=== PATIENT | female | born 1995 | race Caucasian/White ===

== ENCOUNTER 2016-09-12 19:09 | Emergency (ER) | payer OTHER ==
[2016-09-12 19:17] VITALS: BP 134/74; RESP 18; TEMP 98.3
[2016-09-12] MEDS ORDERED: methylPREDNISolone SOD SUCCI 125 MG/2 ML VIAL IM STA (19:24)
[2016-09-12] MEDS ORDERED: FAMOTIDINE 20 MG TAB PO STA (19:50)
[2016-09-12 20:04] LABS: Amorphous Sediment,Urine Rare /hpf; Appearance,Urine Clear (Clear); Bilirubin,Urine Negative (Negative); Glucose,Urine (UA) Negative (Negative); Ketones,Urine Negative (Negative); Leukocyte Esterase,Urine Negative (Negative); Mucus,Urine Rare /hpf; Nitrite,Urine Negative (Negative); Particle Count 1896; Protein,Urine Negative (Negative); RBC,Urine 4 /hpf (0-5); Specific Gravity,Urine 1.018 (1.001-1.035); Squamous Epithelial Cell,Urine 2 /hpf (0-4); UA Billing (MACRO vs. MICRO) MICRO; Urobilinogen,Urine <2.0 mg/dL (<2.0); WBC,Urine 3 /hpf (0-5)
--- NOTE | 2016-09-12 20:12 | ED ---
Allergic Reaction HPI - General Chief complaint: Allergic Reaction Stated complaint: Med Reaction Time Seen by Provider: 09/12/16 19:23 Source: patient, RN notes reviewed Mode of arrival: ambulatory Limitations: no limitations - History of Present Illness Initial Comments: Patient is a 21-year-old female with chief complaint of itching after she took Bactrim that was prescribed to her for urinary tract infection. She is reported that she's had urinary tract infection symptoms for approximately 3 days. She saw a urgent care clinic who prescribed her Bactrim. She states that she is ALLERGIC to sulfas and penicillins. She states that she took the Bactrim she started to feel itchy. She denies any rash. Patient denies any throat closing or shortness breath. - Related Data Home Medications Medication Instructions Recorded Confirmed ARIPiprazole IM [Abilify Maintena] 400 mg IM QMONTH 10/13/15 05/10/16 Albuterol Inhaler [Ventolin Hfa 1 - 2 puff INHALATION RT-Q6H PRN 03/21/16 Inhaler] Azithromycin [Azithromycin] 05/10/16 Previous Rx's Medication Instructions Recorded Loratadine [Claritin] 10 mg PO DAILY PRN #20 tab 03/13/16 Albuterol Inhaler [Ventolin Hfa 2 puff INHALATION RT-TID PRN #0 05/01/16 Inhaler] puff Budesonide [Pulmicort] 1 mg INHALATION RT-BID nebu 05/01/16 Famotidine [Pepcid] 20 mg PO BID #28 tablet 05/01/16 Nicotine Polacrilex [Nicorette] 2 mg BUCCAL Q4HR PRN #60 gum 05/01/16 QUEtiapine [SEROquel] 75 mg PO HS #60 tab 05/01/16 Ziprasidone [Geodon] 40 mg PO AC-BID #60 cap 05/01/16 hydrOXYzine PAMOATE [Vistaril] 50 mg PO HS #60 cap 05/01/16 lamoTRIgine [LaMICtal] 25 mg PO DAILY #60 tab 05/01/16 Ciprofloxacin HCl [Cipro] 250 mg PO Q12HR #6 tablet 09/12/16 Famotidine [Pepcid] 20 mg PO BID #8 tablet 09/12/16 predniSONE 20 mg PO DAILY #3 tab 09/12/16 Allergies Allergy/AdvReac Type Severity Reaction Status Date / Time Penicillins Allergy Severe Anaphylaxis Verified 09/12/16 19:17 Sulfa (Sulfonamide Allergy Severe Anaphylaxis Verified 09/12/16 19:17 Antibiotics) diphenhydramine HCl Allergy Rash/Hives Verified 09/12/16 19:17 [From Benadryl] Review of Systems ROS Statement: Those systems with pertinent positive or pertinent negative responses have been documented in the HPI. ROS Other: All systems not noted in ROS Statement are negative. 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 Past Psychological History: Anxiety, Bipolar, Depression, Panic Disorder, PTSD, Schizophrenia Smoking Status: Current every day smoker Past Alcohol Use History: None Reported Additional Past Alcohol Use History / Comment(s): Vision is a smoker one pack per day. She states she is using marijuana. She does not have a medical marijuana card. She states she has been using a lot of crack cocaine every day. She is currently living at home with her mom. She does not have any children. She denies any alcohol use.. Past Drug Use History: Cocaine, Marijuana, Methamphetamine Additional Drug Use History / Comment(s): Pt. stated cocaine use1 day ago UDS negative - Past Family History Mother Family Medical History: No Reported History Father Family Medical History: No Reported History Brother(s) Family Medical History: No Reported History Sister(s) Family Medical History: No Reported History General Exam - General Exam Comments Initial Comments: Patient is a pleasant 21-year-old female. No acute distress. Limitations: no limitations General appearance: alert, in no apparent distress Head exam: Present: atraumatic, normocephalic, normal inspection Eye exam: Present: normal appearance, PERRL, EOMI. Absent: scleral icterus, conjunctival injection, periorbital swelling ENT exam: Present: normal exam, mucous membranes moist Neck exam: Present: normal inspection Respiratory exam: Present: normal lung sounds bilaterally. Absent: respiratory distress, wheezes, rales, rhonchi, stridor Cardiovascular Exam: Present: regular rate, normal rhythm, normal heart sounds. Absent: systolic murmur, diastolic murmur, rubs, gallop, clicks GI/Abdominal exam: Present: soft, normal bowel sounds. Absent: distended, tenderness, guarding, rebound, rigid Extremities exam: Present: normal inspection, full ROM, normal capillary refill. Absent: tenderness, pedal edema, joint swelling, calf tenderness Back exam: Present: normal inspection Neurological exam: Present: alert, oriented X3, CN II-XII intact Psychiatric exam: Present: normal affect, normal mood Skin exam: Present: warm, dry, intact, normal color. Absent: rash Course Vital Signs 09/12/16 09/12/16 09/12/16 19:15 19:56 20:23 Temperature 98.3 F Pulse Rate 102 H 80 Respiratory 18 18 18 Rate Blood Pressure 134/74 O2 Sat by Pulse 99 99 Oximetry Medical Decision Making - Medical Decision Making Patient is a 21-year-old female with chief complaint of ALLERGIC reaction after a sulfa medication for urinary tract infection. is ALLERGIC to Benadryl. Patient given shot of solumedrol. She has no rash, wheezing, or angioedema. She only reports itching. Patient will be prescribed Cipro for her and she previous urinary tract infection.Urinalysis shows blood, no luekocyte ersterase. Urine will be cultured. I did advise her to take the following prescriptions as directed, Pepcid and steroids. Patient understands treatment plan will comply. - Lab Data Lab Results 09/12/16 Range/Units 19:53 Urine Color Yellow Urine Appearance Clear (Clear) Urine pH 6.0 (5.0-8.0) Ur Specific [place] 1.018 (1.001-1.035) Urine Protein Negative (Negative) Urine Glucose (UA) Negative (Negative) Urine Ketones Negative (Negative) Urine Blood Moderate H (Negative) Urine Nitrate Negative (Negative) Urine Bilirubin Negative (Negative) Urine Urobilinogen <2.0 (<2.0) mg/dL Ur Leukocyte Esterase Negative (Negative) Urine RBC 4 (0-5) /hpf Urine WBC 3 (0-5) /hpf Ur Squamous Epith Cells 2 (0-4) /hpf Amorphous Sediment Rare H (None) /hpf Urine Mucus Rare H (None) /hpf Disposition Clinical Impression: UTI (urinary tract infection), Allergic reaction caused by a drug Disposition: HOME SELF-CARE Condition: Good Instructions: Antibiotic Medication Allergy (ED) Additional Instructions: Patient denies to rest, increase fluids and to complete prescription as directed. Return the emergency department if any alarming signs or symptoms occur. Follow-up with PCP few days as well as concerning signs occur. Prescriptions: Ciprofloxacin HCl [Cipro] 250 mg PO Q12HR #6 tablet Famotidine [Pepcid] 20 mg PO BID #8 tablet predniSONE 20 mg PO DAILY #3 tab Referrals: Brandon Liu MD [REFERRING] - 1-2 days Time of Disposition: 20:12
[2016-09-12 20:23] VITALS: PULSE 80
== END 2016-09-12 20:23 | disposition home or self-care (01) ==
LOC: EC 19:09
DX: N39.0 Urinary tract infection, site not specified (principal); L29.9 Pruritus, unspecified; T37.0X5A Adverse effect of sulfonamides, initial encounter; F17.200 Nicotine dependence, unspecified, uncomplicated; F12.90 Cannabis use, unspecified, uncomplicated; F14.90 Cocaine use, unspecified, uncomplicated; E66.9 Obesity, unspecified; Z88.0 Allergy status to penicillin; Z88.2 Allergy status to sulfonamides; Z88.8 Allergy status to other drugs, medicaments and biological substances; F31.9 Bipolar disorder, unspecified; F20.9 Schizophrenia, unspecified; Z79.51 Long term (current) use of inhaled steroids; J45.909 Unspecified asthma, uncomplicated; K21.9 Gastro-esophageal reflux disease without esophagitis; F41.9 Anxiety disorder, unspecified; Z87.442 Personal history of urinary calculi; Z87.820 Personal history of traumatic brain injury
CPT/HCPCS: 99283; 96372; 87086; 81001; J2930

== ENCOUNTER 2016-11-15 00:55 | Emergency (ER) | payer OTHER ==
[2016-11-15 01:11] VITALS: RESP 18
[2016-11-15] MEDS ORDERED: SODIUM CHLORIDE 0.9% 1,000 ML IV ONE (01:47)
[2016-11-15] MEDS ORDERED: METOCLOPRAMIDE 5 MG/ML 2 ML VIAL IVP STA (01:47)
[2016-11-15] MEDS ORDERED: DIAZEPAM 5 MG/ML 2 ML SYRINGE IVP STA (01:47)
[2016-11-15] MEDS ORDERED: KETOROLAC 30 MG/ML 1 ML VIAL IVP STA (01:47)
--- NOTE | 2016-11-15 01:50 | ED ---
Headache HPI - General Chief Complaint: Headache Stated Complaint: Migrane/Nausea Time Seen by Provider: 11/15/16 01:19 Source: RN notes reviewed Mode of arrival: ambulatory Limitations: no limitations - History of Present Illness Initial Comments: Patient is a 21-year-old female presents to emergency for evaluation of migraine headache. Patient has been having migraine headaches for the past month. Patient states she was recently placed on migraine medication by primary care provider. Patient states she took that medication over the past few days with no relief of symptoms. Patient states migraine headache began about 3 days ago. Patient states she has been very nauseous with vomiting. Patient states when she tries to eat she vomits. Patient states the headaches have been getting worse over the past day. Patient is having 10 out of 10 headache. Patient states headache is mostly behind bilateral eyes. Patient denies dizziness. Patient denies ringing in the ears. Patient does admit to photophobia but denies phonophobia. Patient denies chest pain or shortness of breath. Patient denies abdominal pain. Patient denies numbness or tingling in extremities. Patient denies throat pain or ear pain. Patient denies neck pain. Patient denies fevers or chills. - Related Data Home Medications Medication Instructions Recorded Confirmed ARIPiprazole IM [Abilify Maintena] 400 mg IM QMONTH 10/13/15 05/10/16 Albuterol Inhaler [Ventolin Hfa 1 - 2 puff INHALATION RT-Q6H PRN 03/21/16 Inhaler] Azithromycin [Azithromycin] 05/10/16 Previous Rx's Medication Instructions Recorded Loratadine [Claritin] 10 mg PO DAILY PRN #20 tab 03/13/16 Albuterol Inhaler [Ventolin Hfa 2 puff INHALATION RT-TID PRN #0 05/01/16 Inhaler] puff Budesonide [Pulmicort] 1 mg INHALATION RT-BID nebu 05/01/16 Famotidine [Pepcid] 20 mg PO BID #28 tablet 05/01/16 Nicotine Polacrilex [Nicorette] 2 mg BUCCAL Q4HR PRN #60 gum 05/01/16 QUEtiapine [SEROquel] 75 mg PO HS #60 tab 05/01/16 Ziprasidone [Geodon] 40 mg PO AC-BID #60 cap 05/01/16 hydrOXYzine PAMOATE [Vistaril] 50 mg PO HS #60 cap 05/01/16 lamoTRIgine [LaMICtal] 25 mg PO DAILY #60 tab 05/01/16 Ciprofloxacin HCl [Cipro] 250 mg PO Q12HR #6 tablet 09/12/16 Famotidine [Pepcid] 20 mg PO BID #8 tablet 09/12/16 predniSONE 20 mg PO DAILY #3 tab 09/12/16 Ondansetron Odt [Zofran Odt] 4 mg PO Q8HR PRN #12 tab 11/15/16 Allergies Allergy/AdvReac Type Severity Reaction Status Date / Time Penicillins Allergy Severe Anaphylaxis Verified 11/15/16 01:11 Sulfa (Sulfonamide Allergy Severe Anaphylaxis Verified 11/15/16 01:11 Antibiotics) diphenhydramine HCl Allergy Rash/Hives Verified 11/15/16 01:11 [From Benadryl] Review of Systems ROS Statement: Those systems with pertinent positive or pertinent negative responses have been documented in the HPI. ROS Other: All systems not noted in ROS Statement are negative. 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 Past Psychological History: Anxiety, Bipolar, Depression, Panic Disorder, PTSD, Schizophrenia Smoking Status: Current every day smoker Past Alcohol Use History: None Reported Additional Past Alcohol Use History / Comment(s): Vision is a smoker one pack per day. She states she is using marijuana. She does not have a medical marijuana card. She states she has been using a lot of crack cocaine every day. She is currently living at home with her mom. She does not have any children. She denies any alcohol use.. Past Drug Use History: Cocaine, Marijuana, Methamphetamine Additional Drug Use History / Comment(s): Pt. stated cocaine use1 day ago UDS negative - Past Family History Mother Family Medical History: No Reported History Father Family Medical History: No Reported History Brother(s) Family Medical History: No Reported History Sister(s) Family Medical History: No Reported History General Exam - General Exam Comments Initial Comments: Sitting in exam room, no acute distress. Limitations: no limitations General appearance: alert, in no apparent distress Head exam: Present: atraumatic, normocephalic, normal inspection Eye exam: Present: normal appearance ENT exam: Present: normal exam Neck exam: Present: normal inspection Respiratory exam: Present: normal lung sounds bilaterally. Absent: respiratory distress Cardiovascular Exam: Present: regular rate, normal rhythm, normal heart sounds Extremities exam: Present: normal inspection Back exam: Present: normal inspection Neurological exam: Present: alert, oriented X3, CN II-XII intact, normal gait Expanded Patient oriented to: Present: person, place, time Speech: Present: fluid speech Cranial nerves: EOM's Intact: Normal, Facial Sensation: Normal Sensory exam: Upper Extremity Light Touch: Normal, Lower Extremity Light Touch: Normal Motor strength exam: RUE: 5, LUE: 5, RLE: 5, LLE: 5 Psychiatric exam: Present: normal affect, normal mood Skin exam: Present: warm, dry, intact, normal color. Absent: rash Course Vital Signs 11/15/16 11/15/16 01:09 03:44 Temperature 97.9 F 97.5 F L Pulse Rate 95 71 Respiratory 18 18 Rate Blood Pressure 125/68 107/60 O2 Sat by Pulse 98 99 Oximetry Medical Decision Making - Medical Decision Making Patient is a 21-year-old female presents to the emergency room for evaluation of migraine headache. Patient states she is feeling better after medications and would like to be discharged home. Patient offered brain CT. Patient declined. Patient was sent home with Zofran as needed for nausea. Patient dates she understands everything that was discussed with her. Return parameters discussed. Case discussed Dr. Angeles. - Lab Data Result diagrams: 11/15/16 02:00 Lab Results 11/15/16 11/15/16 11/15/16 Range/Units 01:55 01:55 02:00 WBC 13.0 H (3.8-10.6) k/uL RBC 4.94 (3.80-5.40) m/uL Hgb 12.4 (11.4-16.0) gm/dL Hct 38.8 (34.0-46.0) % MCV 78.6 L (80.0-100.0) fL MCH 25.1 (25.0-35.0) pg MCHC 32.0 (31.0-37.0) g/dL RDW 15.4 (11.5-15.5) % Plt Count 237 (150-450) k/uL Neutrophils % 67 % Lymphocytes % 26 % Monocytes % 3 % Eosinophils % 1 % Basophils % 1 % Neutrophils # 8.7 H (1.3-7.7) k/uL Lymphocytes # 3.4 (1.0-4.8) k/uL Monocytes # 0.4 (0-1.0) k/uL Eosinophils # 0.1 (0-0.7) k/uL Basophils # 0.1 (0-0.2) k/uL Urine Color Yellow Urine Appearance Cloudy H (Clear) Urine pH 5.5 (5.0-8.0) Ur Specific [place] 1.007 (1.001-1.035) Urine Protein Negative (Negative) Urine Glucose (UA) Negative (Negative) Urine Ketones Negative (Negative) Urine Blood Trace H (Negative) Urine Nitrite Negative (Negative) Urine Bilirubin Negative (Negative) Urine Urobilinogen <2.0 (<2.0) mg/dL Ur Leukocyte Esterase Moderate H (Negative) Urine RBC 22 H (0-5) /hpf Ur Squamous Epith Cells 2 (0-4) /hpf Urine Yeast (Budding) Moderate H (None) /hpf Urine HCG, Qual Not Detected (Not Detectd) Disposition Clinical Impression: Migraine Disposition: HOME SELF-CARE Condition: Good Instructions: Acute Headache (ED) Additional Instructions: Drink plenty of water. Take Tylenol or Motrin as needed for headache. Take Zofran as needed for nausea. Please follow up with primary care provider in 1-2 days. If any new symptom arises or symptoms worsen, return to ER as soon as possible. Prescriptions: Ondansetron Odt [Zofran Odt] 4 mg PO Q8HR PRN #12 tab PRN Reason: Nausea Referrals: Lauren Denson MD [Primary Care Provider] - 1-2 days Time of Disposition: 03:35
[2016-11-15 02:23] LABS: Basophils # (A) 0.1 k/uL (0-0.2); Basophils % (A) 1 %; CH 25.7; CHCM 32.8; Eosinophils # (A) 0.1 k/uL (0-0.7); Eosinophils % (A) 1 %; HCT 38.8 % (34.0-46.0); HDW 2.67; HGB 12.4 gm/dL (11.4-16.0); Luc # (Auto) 0.22; Luc % (Auto) 2; Lymphocytes # (A) 3.4 k/uL (1.0-4.8); Lymphocytes % (A) 26 %; MCH 25.1 pg (25.0-35.0); MCV 78.6 fL (80.0-100.0); Mean Platelet Volume 8.1; Monocytes # (A) 0.4 k/uL (0-1.0); Monocytes % (A) 3 %; Neutrophils # (A) 8.7 k/uL (1.3-7.7); Neutrophils % (A) 67 %; RBC 4.94 m/uL (3.80-5.40); RDW 15.4 % (11.5-15.5)
[2016-11-15 02:23] LABS: Appearance,Urine Cloudy (Clear); Bilirubin,Urine Negative (Negative); Glucose,Urine (UA) Negative (Negative); Ketones,Urine Negative (Negative); Leukocyte Esterase,Urine Moderate (Negative); Nitrite,Urine Negative (Negative); PH, Urine 5.5 (5.0-8.0); Particle Count 3443; Protein,Urine Negative (Negative); RBC,Urine 22 /hpf (0-5); Specific Gravity,Urine 1.007 (1.001-1.035); Squamous Epithelial Cell,Urine 2 /hpf (0-4); UA Billing (MACRO vs. MICRO) MICRO; Urobilinogen,Urine <2.0 mg/dL (<2.0)
[2016-11-15] MEDS ORDERED: ONDANSETRON 4 MG/2 ML VIAL IVP STA (02:55)
[2016-11-15] MEDS ORDERED: methylPREDNISolone SOD SUCCI 125 MG/2 ML VIAL IV STA (02:56)
[2016-11-15 03:46] VITALS: BP 107/60; PULSE 71; TEMP 97.5
== END 2016-11-15 03:46 | disposition home or self-care (01) ==
LOC: EC 00:55
DX: G43.909 Migraine, unspecified, not intractable, without status migrainosus (principal); K21.9 Gastro-esophageal reflux disease without esophagitis; K58.9 Irritable bowel syndrome, unspecified; E66.9 Obesity, unspecified; F17.200 Nicotine dependence, unspecified, uncomplicated; Z79.899 Other long term (current) drug therapy; Z88.0 Allergy status to penicillin; Z88.2 Allergy status to sulfonamides; Z88.8 Allergy status to other drugs, medicaments and biological substances
CPT/HCPCS: 36415; 85025; 81001; 81025; 99284; 96374; 96375 ×4; 96361 ×2; J2765; J2930; J3360; J2405; J1885

== ENCOUNTER 2016-12-30 01:05 | Emergency (ER) | payer OTHER ==
--- NOTE | 2016-12-30 01:52 | ED ---
General Adult HPI - General Chief complaint: Psychiatric Symptoms Stated complaint: Dizziness Time Seen by Provider: 12/30/16 01:10 Source: patient, family, RN notes reviewed Mode of arrival: ambulatory Limitations: no limitations - History of Present Illness Initial comments: This is a 21-year-old female who presents emergency department with past medical history significant for schizophrenia. Patient states tonight she was getting depressive she took 3 plate stacker hand pills and some vodka in an attempt to harm herself. Patient states she has never attempted to harm herself in the past. Patient is not sure exactly why she attempted this evening. Patient denies any physical complaints today except for feeling a little racing heart. Patient denies any difficulty breathing shortness of breath. Patient denies any chest pain. Patient denies abdominal pain patient denies nausea vomiting or diarrhea. Patient denies any recent fever chills or cough. Patient denies any headache patient denies numbness weakness. Patient denies lightheadedness or dizziness. - Related Data Home Medications Medication Instructions Recorded Confirmed ARIPiprazole IM [Abilimaty Maintena] 400 mg IM QMONTH 10/13/15 12/30/16 Albuterol Inhaler [Ventolin Hfa 1 - 2 puff INHALATION RT-Q6H PRN 03/21/16 Inhaler] Previous Rx's Medication Instructions Recorded Loratadine [Claritin] 10 mg PO DAILY PRN #20 tab 03/13/16 Albuterol Inhaler [Ventolin Hfa 2 puff INHALATION RT-TID PRN #0 05/01/16 Inhaler] puff Budesonide [Pulmicort] 1 mg INHALATION RT-BID nebu 05/01/16 Famotidine [Pepcid] 20 mg PO BID #28 tablet 05/01/16 Nicotine Polacrilex [Nicorette] 2 mg BUCCAL Q4HR PRN #60 gum 05/01/16 QUEtiapine [SEROquel] 75 mg PO HS #60 tab 05/01/16 Ziprasidone [Geodon] 40 mg PO AC-BID #60 cap 05/01/16 hydrOXYzine PAMOATE [Vistaril] 50 mg PO HS #60 cap 05/01/16 lamoTRIgine [LaMICtal] 25 mg PO DAILY #60 tab 05/01/16 Ciprofloxacin HCl [Cipro] 250 mg PO Q12HR #6 tablet 02/21/17 Famotidine [Pepcid] 20 mg PO BID #8 tablet 09/12/16 predniSONE 20 mg PO DAILY #3 tab 09/12/16 Ondansetron Odt [Zofran Odt] 4 mg PO Q8HR PRN #12 tab 11/15/16 Allergies Allergy/AdvReac Type Severity Reaction Status Date / Time Penicillins Allergy Severe Anaphylaxis Verified 12/30/16 01:11 Sulfa (Sulfonamide Allergy Severe Anaphylaxis Verified 12/30/16 01:11 Antibiotics) diphenhydramine HCl Allergy Rash/Hives Verified 12/30/16 01:11 [From Benadryl] Review of Systems ROS Statement: Those systems with pertinent positive or pertinent negative responses have been documented in the HPI. ROS Other: All systems not noted in ROS Statement are negative. 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 Past Psychological History: Anxiety, Bipolar, Depression, Panic Disorder, PTSD, Schizophrenia Smoking Status: Current every day smoker Past Alcohol Use History: None Reported Additional Past Alcohol Use History / Comment(s): Vision is a smoker one pack per day. She states she is using marijuana. She does not have a medical marijuana card. She states she has been using a lot of crack cocaine every day. She is currently living at home with her mom. She does not have any children. She denies any alcohol use.. Past Drug Use History: Cocaine, Marijuana, Methamphetamine Additional Drug Use History / Comment(s): Pt. stated cocaine use1 day ago UDS negative - Past Family History Mother Family Medical History: No Reported History Father Family Medical History: No Reported History Brother(s) Family Medical History: No Reported History Sister(s) Family Medical History: No Reported History General Exam - General Exam Comments Initial Comments: GENERAL: Patient is well-developed and well-nourished. Patient is nontoxic and well- hydrated and is in no acute distress. ENT: Neck is soft and supple. No significant lymphadenopathy is noted. Oropharynx is clear. Moist mucous membranes. Neck has full range of motion without eliciting any pain. EYES: The sclera were anicteric and conjunctiva were pink and moist. Extraocular movements were intact and pupils were equal round and reactive to light. Eyelids were unremarkable. PULMONARY: Unlabored respirations. Good breath sounds bilaterally. No audible rales rhonchi or wheezing was noted. CARDIOVASCULAR: There is a regular rate and rhythm without any murmurs gallops or rubs. ABDOMEN: Soft and nontender with normal bowel sounds. No palpable organomegaly was noted. There is no palpable pulsatile mass. SKIN: Skin is clear with no lesions or rashes and otherwise unremarkable. NEUROLOGIC: Patient is alert and oriented x3. Cranial nerves II through XII are grossly intact. Motor and sensory are also intact. Normal speech, volume and content. Symmetrical smile. MUSCULOSKELETAL: Normal extremities with adequate strength and full range of motion. LYMPHATICS: No significant lymphadenopathy is noted PSYCHIATRIC: Normal psychiatric evaluation. Limitations: no limitations Course Vital Signs 12/30/16 01:08 Temperature 98.1 F Pulse Rate 103 H Respiratory 20 Rate Blood Pressure 112/55 O2 Sat by Pulse 97 Oximetry Medical Decision Making - Medical Decision Making EKG shows a normal sinus rhythm at 91 bpm TN interval is 150 QRS 74 QT interval 364 QTC is 447. Patient's EKG shows no ST segment elevation or depression or T wave abnormalities are noted EPS evaluated the patient and spoke with the psychiatrist they determined that the patient was safe to be discharged - Lab Data Lab Results 12/30/16 12/30/16 Range/Units 01:35 01:35 Urine HCG, Qual Not Detected (Not Detectd) Urine Opiates Screen Detected H (NotDetected) Ur Oxycodone Screen Not Detected (NotDetected) Urine Methadone Screen Not Detected (NotDetected) Ur Propoxyphene Screen Not Detected (NotDetected) Ur Barbiturates Screen Not Detected (NotDetected) U Tricyclic Antidepress Not Detected (NotDetected) Ur Phencyclidine Scrn Not Detected (NotDetected) Ur Amphetamines Screen Not Detected (NotDetected) U Methamphetamines Scrn Not Detected (NotDetected) U Benzodiazepines Scrn Detected H (NotDetected) Urine Cocaine Screen Not Detected (NotDetected) U Marijuana (THC) Screen Detected H (NotDetected) Disposition Clinical Impression: Depression Disposition: HOME SELF-CARE Condition: Good Instructions: Depression (ED) Referrals: Lauren Denson MD [Primary Care Provider] - 1-2 days Time of Disposition: 03:50
[2016-12-30 04:00] VITALS: BP 102/53; PULSE 86; RESP 18; TEMP 98
== END 2016-12-30 04:01 | disposition home or self-care (01) ==
LOC: EC 01:05
DX: F31.9 Bipolar disorder, unspecified (principal); F20.9 Schizophrenia, unspecified; F17.200 Nicotine dependence, unspecified, uncomplicated; Z88.0 Allergy status to penicillin; Z88.2 Allergy status to sulfonamides; Z88.8 Allergy status to other drugs, medicaments and biological substances; Z79.899 Other long term (current) drug therapy
CPT/HCPCS: 80306; 81025; 82075; 93005; 99285

== ENCOUNTER 2017-03-29 03:32 | Emergency (ER) | payer OTHER ==
[2017-03-29 03:38] VITALS: TEMP 97.5
[2017-03-29 04:18] LABS: Basophils % (A) 0 %; CH 28.2; CHCM 34.5; Eosinophils # (A) 0.1 k/uL (0-0.7); Eosinophils % (A) 1 %; HCT 36.3 % (34.0-46.0); HDW 2.68; HGB 12.1 gm/dL (11.4-16.0); Luc # (Auto) 0.13; Luc % (Auto) 2; Lymphocytes # (A) 1.8 k/uL (1.0-4.8); Lymphocytes % (A) 23 %; MCH 27.3 pg (25.0-35.0); MCHC 33.3 g/dL (31.0-37.0); MCV 82.2 fL (80.0-100.0); Monocytes # (A) 0.4 k/uL (0-1.0); Monocytes % (A) 5 %; Neutrophils # (A) 5.5 k/uL (1.3-7.7); Neutrophils % (A) 70 %; RBC 4.41 m/uL (3.80-5.40); WBC 7.9 k/uL (3.8-10.6); WBC (Perox) 7.76
[2017-03-29 04:29] LABS: Partial Thromboplastin Time 24.6 sec (22.0-30.0)
[2017-03-29 04:34] LABS: ALT 42 U/L (9-52); AST 20 U/L (14-36); Alkaline Phosphatase 89 U/L (38-126); Anion Gap 12 mmol/L; Blood Urea Nitrogen 8 mg/dL (7-17); Calcium 9.5 mg/dL (8.4-10.2); Carbon Dioxide 20 mmol/L (22-30); Chloride 109 mmol/L (98-107); Glucose 96 mg/dL (74-99); Magnesium 1.8 mg/dL (1.6-2.3); Non-African American GFR(MDRD) >60 (>60 ml/min/1.73 sqM); Potassium 4.1 mmol/L (3.5-5.1); Sodium 141 mmol/L (137-145); Total Bilirubin 0.2 mg/dL (0.2-1.3); Total Protein 6.8 g/dL (6.3-8.2)
[2017-03-29 04:36] LABS: INR 1.1 (<1.2); Prothrombin Time 11.2 sec (9.0-12.0)
[2017-03-29 04:52] LABS: Creatine Kinase 92 U/L (30-135)
[2017-03-29 05:05] LABS: Creatine Kinase MB 0.5 ng/mL (0.0-2.4); Troponin I <0.012 ng/mL (0.000-0.034)
--- NOTE | 2017-03-29 05:23 | ED ---
Chest Pain HPI - General Chief Complaint: Chest Pain Stated Complaint: chest pain Time Seen by Provider: 03/29/17 03:38 Source: patient, EMS Mode of arrival: EMS - History of Present Illness MD Complaint: chest pain Onset/Timin -: days(s) Onset: during rest Pain Location: substernal Quality: other (Burning) Consistency: constant Improves With: nothing Worsens With: other (Cough) Other Symptoms: cough Treatments Prior to Arrival: none - Related Data Home Medications Medication Instructions Recorded Confirmed fluPHENAZine DECANOATE [Prolixin 50 mg IM [id number] 04/03/17 04/15/17 Decanoate] Budesonide [Pulmicort Flexhaler] 2 puff INHALATION RT-BID 04/05/17 04/15/17 Medroxyprogesterone Acetate 150 mg IM Q90D 04/05/17 04/15/17 [Depo-Provera] Allergies Allergy/AdvReac Type Severity Reaction Status Date / Time Penicillins Allergy Severe Anaphylaxis Verified 04/15/17 18:36 Sulfa (Sulfonamide Allergy Severe Anaphylaxis Verified 04/15/17 18:36 Antibiotics) diphenhydramine HCl Allergy Rash/Hives Verified 04/15/17 18:36 [From Benadryl] Review of Systems ROS Statement: Those systems with pertinent positive or pertinent negative responses have been documented in the HPI. ROS Other: All systems not noted in ROS Statement are negative. Constitutional: Denies: fever, chills ENT: Denies: throat pain Respiratory: Reports: as per HPI, cough. Denies: dyspnea, wheezes Cardiovascular: Reports: as per HPI, chest pain. 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 Past Psychological History: Anxiety, Bipolar, Depression, Panic Disorder, PTSD, Schizophrenia Smoking Status: Current every day smoker Past Alcohol Use History: None Reported Past Drug Use History: None Reported - Past Family History Mother Family Medical History: No Reported History Father Family Medical History: No Reported History Brother(s) Family Medical History: No Reported History Sister(s) Family Medical History: No Reported History General Exam General appearance: alert, in no apparent distress Head exam: Present: atraumatic, normocephalic Eye exam: Present: normal appearance. Absent: scleral icterus, conjunctival injection Neck exam: Present: normal inspection, full ROM Respiratory exam: Present: normal lung sounds bilaterally, wheezes, chest wall tenderness. Absent: respiratory distress, rales, rhonchi, stridor Cardiovascular Exam: Present: regular rate, normal rhythm, normal heart sounds. Absent: systolic murmur, diastolic murmur, rubs, gallop GI/Abdominal exam: Present: soft. Absent: distended, tenderness, guarding, rebound, rigid Extremities exam: Present: normal inspection, normal capillary refill. Absent: pedal edema, calf tenderness Back exam: Present: normal inspection. Absent: CVA tenderness (R), CVA tenderness (L) Skin exam: Present: warm, dry, intact, normal color. Absent: rash Course Vital Signs 03/29/17 03/29/17 03:34 05:27 Temperature 97.5 F L Pulse Rate 79 76 Respiratory 16 14 Rate Blood Pressure 109/56 92/55 O2 Sat by Pulse 98 97 Oximetry Disposition Clinical Impression: Chest pain Disposition: HOME SELF-CARE Condition: Good Instructions: Chest Pain (ED) Referrals: Lauren Denson MD [Primary Care Provider] - 1-2 days
--- NOTE | 2017-03-29 05:25 | XR ---
EXAM: XR Chest, 2 Views CLINICAL HISTORY: Reason: Chest Pain TECHNIQUE: Frontal and lateral views of the chest. COMPARISON: 03/27/2014. FINDINGS: Lungs: Mild peribronchial cuffing is suggested, which can be seen in small airways inflammatory disease. No evidence of consolidation. Pleural space: Unremarkable. No pneumothorax. Heart: Unremarkable. No cardiomegaly. Mediastinum: Unremarkable. Bones/joints: Unremarkable. IMPRESSION: Mild peribronchial cuffing, which may represent small airways inflammatory disease. No evidence of consolidation.
[2017-03-29 05:31] VITALS: BP 92/55; PULSE 76; RESP 14
--- NOTE | 2017-04-02 00:57 | CDI ---
Documentation Clarification OP Dear Anthony Pereira Please do addendum to ED report for missing HPI and Physical examination. Thank you, Jon Hermosillo [employer] If you have any questions, please contact Commercial Underwriter at [phone] [facility]
== END 2017-03-29 05:49 | disposition home or self-care (01) ==
LOC: EC 03:32
DX: R07.2 Precordial pain (principal); J45.909 Unspecified asthma, uncomplicated; F20.9 Schizophrenia, unspecified; F17.200 Nicotine dependence, unspecified, uncomplicated; Z79.3 Long term (current) use of hormonal contraceptives; Z79.899 Other long term (current) drug therapy; Z88.0 Allergy status to penicillin; Z88.2 Allergy status to sulfonamides; Z88.8 Allergy status to other drugs, medicaments and biological substances
CPT/HCPCS: 36415; 71020; 80053; 82550; 82553; 83735; 84484; 85025; 85379; 85610; 85730; 93005; 99285

== ENCOUNTER 2017-04-03 10:28 | Observation (INO) | payer OTHER ==
[2017-04-03] MEDS ORDERED: IPRATROPIUM-ALBUTEROL 3 ML NEB INHALATION STA (10:43)
--- NOTE | 2017-04-03 10:47 | ED ---
General Adult HPI - General Chief complaint: Upper Respiratory Infection Stated complaint: Diff Breathing Time Seen by Provider: 04/03/17 10:30 Source: patient, RN notes reviewed Mode of arrival: EMS Limitations: no limitations - History of Present Illness Initial comments: This is a 22-year-old female who presents emergency department with past medical history significant for schizophrenia current use of crack cocaine asthma and smoking. Patient comes in today stating that she has had difficulty breathing over the last 2 days which started right after her last episode of smoking crack cocaine. Patient denies any fever chills per patient states she has an occasional cough. Patient states she has no more albuterol she's been out for a year but has never followed up to get more. Patient denies any fevers or chills. Patient denies any palpitations or chest pain. Patient denies abdominal pain patient denies nausea vomiting diarrhea. - Related Data Home Medications Medication Instructions Recorded Confirmed fluPHENAZine DECANOATE [Prolixin 50 mg IM [id number] 04/03/17 04/03/17 Decanoate] Allergies Allergy/AdvReac Type Severity Reaction Status Date / Time Penicillins Allergy Severe Anaphylaxis Verified 04/03/17 10:55 Sulfa (Sulfonamide Allergy Severe Anaphylaxis Verified 04/03/17 10:55 Antibiotics) diphenhydramine HCl Allergy Rash/Hives Verified 04/03/17 10:55 [From Benadryl] Review of Systems ROS Statement: Those systems with pertinent positive or pertinent negative responses have been documented in the HPI. ROS Other: All systems not noted in ROS Statement are negative. 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 Past Psychological History: Anxiety, Bipolar, Depression, Panic Disorder, PTSD, Schizophrenia Smoking Status: Current every day smoker Past Alcohol Use History: None Reported Past Drug Use History: Cocaine, Marijuana - Past Family History Mother Family Medical History: No Reported History Father Family Medical History: No Reported History Brother(s) Family Medical History: No Reported History Sister(s) Family Medical History: No Reported History General Exam - General Exam Comments Initial Comments: GENERAL: Patient is well-developed and well-nourished. Patient is nontoxic and well- hydrated and is in mild distress. ENT: Neck is soft and supple. No significant lymphadenopathy is noted. Oropharynx is clear. Moist mucous membranes. Neck has full range of motion without eliciting any pain. EYES: The sclera were anicteric and conjunctiva were pink and moist. Extraocular movements were intact and pupils were equal round and reactive to light. Eyelids were unremarkable. PULMONARY: Unlabored respirations. Good breath sounds bilaterally. CARDIOVASCULAR: There is a regular rate and rhythm without any murmurs gallops or rubs. ABDOMEN: Soft and nontender with normal bowel sounds. No palpable organomegaly was noted. There is no palpable pulsatile mass. SKIN: Skin is clear with no lesions or rashes and otherwise unremarkable. NEUROLOGIC: Patient is alert and oriented x3. Cranial nerves II through XII are grossly intact. Motor and sensory are also intact. Normal speech, volume and content. Symmetrical smile. MUSCULOSKELETAL: Normal extremities with adequate strength and full range of motion. No lower extremity swelling or edema. No calf tenderness. LYMPHATICS: No significant lymphadenopathy is noted PSYCHIATRIC: Patient has a very flat affect with all of her responses Limitations: no limitations Course Vital Signs 04/03/17 04/03/17 04/03/17 10:30 11:09 11:20 Temperature 98.5 F Pulse Rate 94 98 100 Respiratory 16 Rate Blood Pressure 131/67 O2 Sat by Pulse 94 L Oximetry Medical Decision Making - Medical Decision Making This is a 22-year-old female presents Department complaining shortness of breath. When I looked at the chest x-ray there was a right middle lobe pneumonia as well as a possible foreign body. When I spoke with the patient she states she did inhale a chunk of metal from a metal scrubber when she was trying to smoke crack from her pipe - Lab Data Lab Results 04/03/17 Range/Units 10:55 Group A Strep Rapid Negative (Negative) Disposition Clinical Impression: Pneumonia, Aspiration of foreign body Disposition: ADMITTED IP TO THIS HOSP Referrals: Lauren Denson MD [Primary Care Provider] - 1-2 days Time of Disposition: 13:09
[2017-04-03] MEDS ORDERED: LEVOFLOXACIN 750MG-D5W PMX 750 MG in DEXTROSE/WATER 1 150ML.BAG IVPB STA (13:06)
[2017-04-03 13:46] LABS: WBC 16.1 k/uL (3.8-10.6); WBC (Perox) 17.33
[2017-04-03 13:47] LABS: Basophils % (A) 0 %; CH 27.8; CHCM 34.5; Eosinophils % (A) 0 %; HCT 36.8 % (34.0-46.0); HDW 2.71; HGB 12.4 gm/dL (11.4-16.0); Luc % (Auto) 1; Lymphocytes % (A) 12 %; MCH 27.2 pg (25.0-35.0); MCHC 33.6 g/dL (31.0-37.0); MCV 80.9 fL (80.0-100.0); Mean Platelet Volume 8.8; Monocytes % (A) 3 %; Neutrophils % (A) 83 %; RBC 4.54 m/uL (3.80-5.40); RDW 15.9 % (11.5-15.5)
[2017-04-03 13:48] LABS: Eosinophils # (A) 0.1 k/uL (0-0.7); Luc # (Auto) 0.16; Monocytes # (A) 0.6 k/uL (0-1.0); Neutrophils # (A) 13.3 k/uL (1.3-7.7)
[2017-04-03 13:57] LABS: ALT 50 U/L (9-52); AST 67 U/L (14-36); Alkaline Phosphatase 96 U/L (38-126); Anion Gap 11 mmol/L; Blood Urea Nitrogen 7 mg/dL (7-17); Calcium 9.2 mg/dL (8.4-10.2); Carbon Dioxide 18 mmol/L (22-30); Chloride 111 mmol/L (98-107); Glucose 94 mg/dL (74-99); Non-African American GFR(MDRD) >60 (>60 ml/min/1.73 sqM); Sodium 140 mmol/L (137-145); Total Bilirubin 0.3 mg/dL (0.2-1.3); Total Protein 6.6 g/dL (6.3-8.2)
[2017-04-03] MEDS ORDERED: ONDANSETRON 4 MG/2 ML VIAL IVP PRN (14:20)
[2017-04-03] MEDS ORDERED: hydrALAZINE HCL 20 MG/ML 1 ML VIAL IM PRN (14:20)
--- NOTE | 2017-04-03 14:20 | XR ---
EXAMINATION TYPE: XR chest 2V DATE OF EXAM: 04/03/2017 COMPARISON: 03/29/2017 TECHNIQUE: PA and lateral views submitted. HISTORY: Cough and shortness of breath FINDINGS: There is right-sided consolidation extending in the right middle lobe. Left lung clear. No pneumothor ax. Heart size within normal limits. Metallic density overlying the right heart border may be related to previous surgery correlate clinically to exclude foreign body. IMPRESSION: 1. Right middle lobe pneumonia. 2. Correlate clinically for previous instrumentation or surgery for metallic density overlying the ri ght heart border
--- NOTE | 2017-04-03 14:22 | P.HPIM ---
History of Present Illness H&P Date: 04/03/17 Chief Complaint: shortness of breath Patient is a 22-year-old female with a past medical history of asthma , kidney stones, irritable bowel syndrome, and closed head injury who presented with complaints of shortness of breath. She states that 2 days ago she was cleaning her crack pipe. She had placed a copper piece in they are to clean. She had predominantly in there and then smoked again. She felt herself inhale something. Since that time she has had increasing shortness breath. This is associated with wheezing and a nonproductive cough. She states it is worse with exertion and better with rest. She also reports right-sided chest pain without radiation. It is worse with deep inspiration. She denies fevers and chills. She has no other complaints currently. She states that she uses crack cocaine approximately once every 2 days to once weekly. In the emergency department she underwent an extensive evaluation. Her chest x- ray revealed foreign body within the right middle lobe. She was on them and elevated white blood cell count of 16.1. She is given bronchodilators and a dose of Levaquin. Patient has been admission to observation. Review of Systems General: no fever/chills, no rigors, no weight loss/weight gain, no change in appetite Eyes: No double vision, no unusual blurry vision, no loss of vision ENT: No rhinorrhea, congestion, no trush Cardiovascular: No chest pain, no palpitations, no syncope, no edema, No paroxysmal nocturnal dyspnea, No dizziness Pulmonary: + Shortness of breath, + wheezing, + cough, hemoptysis Abdominal: No abdominal pain, no constipation, no diarrhea, no vomiting, no nausea, no distention Genitourinary: No dysuria, no urinary frequency, no hematuria, no unusual discharge/odor Neuro: No unusual paresthesias, no unusual paresis/paralysis, no headache Dermatologic: No unusual rashes, no unusual lesions, no unusual changes in nails Endocrinology: No intolerance to heat/cold, no excessive thirst,] no unusual fatigue Hematologic: No unusual bruising or bleeding, no unusual cervical lymphadenopathy Psychiatric: No changes in mood or behaviors, no changes in sleep pattern Past Medical History Past Medical History: Asthma, GERD/Reflux Additional Past Medical History / Comment(s): kidney stones, hypotension, irritable bowel syndrome -C, obesity, asthma, 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 Past Psychological History: Anxiety, Bipolar (Negative for heart disease), Depression, Panic Disorder, PTSD, Schizophrenia Smoking Status: Current every day smoker Past Alcohol Use History: None Reported Past Drug Use History: Cocaine, Marijuana - Past Family History Mother Family Medical History: No Reported History Father Family Medical History: No Reported History Brother(s) Family Medical History: No Reported History Sister(s) Family Medical History: No Reported History Medications and Allergies Home Medications Medication Instructions Recorded Confirmed Type fluPHENAZine DECANOATE [Prolixin 50 mg IM [id number] 04/03/17 04/03/17 History Decanoate] Allergies Allergy/AdvReac Type Severity Reaction Status Date / Time Penicillins Allergy Severe Anaphylaxis Verified 04/03/17 10:55 Sulfa (Sulfonamide Allergy Severe Anaphylaxis Verified 04/03/17 10:55 Antibiotics) diphenhydramine HCl Allergy Rash/Hives Verified 04/03/17 10:55 [From Benadryl] Physical Exam Osteopathic Statement: *. No significant issues noted on an osteopathic structural exam other than those noted in the History and Physical/Consult. Vitals: Vital Signs Temp Pulse Resp BP Pulse Ox 04/03/17 11:20 100 04/03/17 11:09 98 04/03/17 10:30 98.5 F 94 16 131/67 94 L Intake and Output 04/02/17 04/03/17 04/03/17 22:59 06:59 14:59 Other: Weight 90.718 kg Patient Weight 04/04/17 06:59 Weight 90.718 kg General: non toxic, mild distress, appears at stated age, normal weight Derm: no rashes, no lesions, no ulcers, no unusual ecchymoses Head: atraumatic, normocephalic, symmetric Eyes: EOMI, no lid lag, anicteric sclera, pupils equal round reactive to light ENT: no post nasal drip, no thrush , nearest patent, no pharyngeal erythema Neck: No thyromegaly, no cervical lymphadenopathy, trachea midline, supple Mouth: no lip lesion, mucus membranes moist Cardiovascular: S1S2 reg, no murmur, positive posterior tibial pulse bilateral, no edema , no JVD, no clubbing, no cyanosis, capillary refill less than 2 seconds Lungs: Decreased breath sounds right base, no wheeze, no rhonchi, no rales , no accessory muscle use Abdominal: soft, nontender to palpation, no guarding, no appreciable organomegaly, normal bowel sounds Ext: no gross muscle atrophy, muscle strength 5 out of 5 in all 4 extremities grossly, no contractures, Neuro: CN II-XI grossly intact, light touch intact all 4 extremities, finger to nose within normal limits, Psych: Alert, oriented, appears anxious Results CBC & Chem 7: 04/03/17 13:20 04/03/17 13:20 Labs: Abnormal Lab Results - Last 24 Hours (Table) 04/03/17 04/03/17 Range/Units 13:20 13:20 WBC 16.1 H (3.8-10.6) k/uL RDW 15.9 H (11.5-15.5) % Neutrophils # 13.3 H (1.3-7.7) k/uL Chloride 111 H (98-107) mmol/L Carbon Dioxide 18 L (22-30) mmol/L AST 67 H (14-36) U/L Chest x-ray: report reviewed, image reviewed Thrombosis Risk Factor Assmnt - DVT/VTE Prophylaxis DVT/VTE Prophylaxis: Pharmacologic Prophylaxis ordered Assessment and Plan Plan: #Foreign body aspiration -Made nothing by mouth -Case discussed with Dr. Newsome, probable bronchoscopy #Postobstructive pneumonia -Levaquin and clindamycin -Sputum culture if able -As needed bronchodilators #Cocaine abuse -Cessation #Tobacco abuse -Nicotine replacement -Cessation encouraged #Obesity -Outpatient structured weight loss Chronic: Asthma mild intermittent without exacerbation History of kidney stones Irritable bowel syndrome Hypotension Schizophrenia GERD History of closed head injury Surrogate decision-maker: Mother Jonelle Nolen [phone] CODE STATUS:Full DVT prophylaxis: Lovenox to start 04/05 Discussed with: Patient, ER physician, EGD nursing, for nursing, Dr. NewsomeSelena PRECISION INSTRUMENT MAKER Anticipated discharge: 24-48 hours, admitted as observation Anticipated discharge place: Home A total of 45 minutes was spent on the care of this complex patient more than 50 % of the time was spent in counseling and care coordination.
[2017-04-03] MEDS ORDERED: ALBUTEROL NEBULIZED 2.5 MG/3 ML INHALATION PRN (15:08)
[2017-04-03] MEDS: MORPHINE SULFATE 2 MG/ML SYRINGE IV PRN ×4 (15:35→21:49)
[2017-04-03] MEDS: DEXTROSE 5%-0.45% NACL 1,000 ML IV SCH (16:03)
[2017-04-03] MEDS: CLINDAMYCIN 600 MG in DEXTROSE 5% IN WATER 50 ML IVPB SCH ×4 (16:03→23:23)
[2017-04-03] MEDS ORDERED: KETOROLAC 30 MG/ML 1 ML VIAL IVP ONE (16:20)
[2017-04-03] MEDS ORDERED: MIDAZOLAM 2 MG/2 ML VIAL ONE (16:34)
[2017-04-03] MEDS ORDERED: PROPOFOL 10 MG/ML 20 ML VIAL IV ONE (16:34)
[2017-04-03] MEDS ORDERED: LIDOCAINE 1% INJ 10MG/ML (20 ML MDV) ONE (16:34)
[2017-04-03] MEDS ORDERED: IV FLUID CONTINUATION 900 ML IV ONE (16:40)
[2017-04-03] MEDS ORDERED: ZOLPIDEM 5 MG TAB PO PRN (21:16)
[2017-04-03] MEDS: LACTOBACILLUS ACIDOPH & BULGAR 1 EACH PACKET PO SCH (21:27)
[2017-04-03 21:39] LABS: RBC, Body Fluid 18900 /uL
--- NOTE | 2017-04-03 22:30 | CONS ---
CONSULTATION This patient is a 22-year-old female who presented to the emergency department with complaints of difficulty in breathing and coughing. She apparently aspirated a portion of her crack cocaine pipe a couple days ago. She has not had anything to eat or drink since about 8:00 last night. Anyway, the patient is here in the emergency department. We were notified by the attending staff that she had aspirated a portion of her crack pipe into her right lung. Sure enough it is seen in the right mainstem, right middle lobe of the right lung. Anyway, the patient is having cough and is short of breath. HOME MEDICATIONS: Her home medications include Prolixin. ALLERGIES: 1. PENICILLIN. 2. SULFA. 3. She also apparently has a history of BENADRYL ALLERGY. MEDICAL HISTORY: 1. Asthma. 2. Acid reflux disease. 3. History of irritable bowel syndrome. 4. Post head injury with brain injury. 5. Traumatic stress disorder. 6. Chronic tobacco dependence. 7. Polysubstance abuse. 8. Mood disorder. 9. UTI. PAST SURGICAL HISTORY: No major surgical procedures. SOCIAL HISTORY: Positive for chronic tobacco use, chronic alcohol abuse and polysubstance abuse. FAMILY HISTORY: Noncontributory. The rest of the history is not too remarkable. REVIEW OF SYSTEMS: CONSTITUTIONAL: Negative. NEUROLOGIC: Negative. HEENT: Negative. CARDIOVASCULAR: Negative. PULMONARY: Shortness of breath and cough. GI: Negative. : Negative. RHEUMATOLOGIC: Negative. IMMUNOLOGIC: Negative. ENDOCRINOLOGIC: Negative. DERMATOLOGIC: Negative. PHYSICAL EXAMINATION: Current vital signs are reviewed. Temperature 98.5, heart rate 94, respiratory rate 16, blood pressure 131/67. Saturation on room air 94%. Appears in no acute distress. HEENT examination is grossly unremarkable. Mucous membranes are moist. No oral lesions. NECK: Supple. Full range of motion. No adenopathy or thyromegaly. Cardiovascular examination reveals regular rhythm and rate. Lungs reveal mostly clear breath sounds. A few scattered mild rhonchi. No wheezes or crackles. ABDOMEN: Soft. Bowel sounds are heard. Extremities are intact. No cyanosis, clubbing or edema. X-RAY: Chest x-ray shows a foreign body either in the right mainstem or right middle lobe bronchus. LABS: Reviewed. White count 16.1. Hemoglobin and hematocrit stable. Platelet count normal. Sodium and potassium normal. Chloride is 111, CO2 18. BUN and creatinine were 7 and 0.6. The rest of the labs look negative. ASSESSMENT: 1. Foreign body aspiration, right mainstem, right middle lobe bronchus. 2. History of asthma. 3. History of gastroesophageal reflux disease. 4. History of chronic tobacco use. 5. History of polysubstance abuse. PLAN: The patient will go to the endoscopy suite. We will see if we can fish this metallic crack pipe mouthpiece out of her right lung. Additional recommendations and suggestions are forthcoming. She can either stay for 6 or 8 hours for observation or stay overnight or actually be discharged, depending on how she does. No additional recommendations are made. Will follow. MMODL / IJN: [id number] /
[2017-04-04] MEDS: MORPHINE SULFATE 2 MG/ML SYRINGE IV PRN ×3 (01:55→10:45)
[2017-04-04] MEDS: DEXTROSE 5%-0.45% NACL 1,000 ML IV SCH (05:51)
[2017-04-04 07:50] VITALS: BP 96/52; PULSE 86; RESP 16; TEMP 97.8
[2017-04-04 08:41] LABS: Basophils % (A) 0 %; CH 27.5; CHCM 33.5; Eosinophils # (A) 0.2 k/uL (0-0.7); Eosinophils % (A) 2 %; HCT 32.1 % (34.0-46.0); HDW 2.74; HGB 10.5 gm/dL (11.4-16.0); Luc # (Auto) 0.14; Luc % (Auto) 2; Lymphocytes # (A) 2.3 k/uL (1.0-4.8); Lymphocytes % (A) 32 %; MCH 26.9 pg (25.0-35.0); MCHC 32.7 g/dL (31.0-37.0); MCV 82.4 fL (80.0-100.0); Mean Platelet Volume 8.9; Monocytes # (A) 0.4 k/uL (0-1.0); Monocytes % (A) 5 %; Neutrophils # (A) 4.2 k/uL (1.3-7.7); Neutrophils % (A) 59 %; RDW 15.9 % (11.5-15.5); WBC 7.2 k/uL (3.8-10.6); WBC (Perox) 6.89
[2017-04-04] MEDS: CLINDAMYCIN 600 MG in DEXTROSE 5% IN WATER 50 ML IVPB SCH ×2 (08:42)
[2017-04-04] MEDS: LACTOBACILLUS ACIDOPH & BULGAR 1 EACH PACKET PO SCH (08:43)
[2017-04-04 08:59] LABS: Anion Gap 9 mmol/L; Blood Urea Nitrogen 4 mg/dL (7-17); Calcium 8.5 mg/dL (8.4-10.2); Carbon Dioxide 20 mmol/L (22-30); Chloride 111 mmol/L (98-107); Glucose 86 mg/dL (74-99); Non-African American GFR(MDRD) >60 (>60 ml/min/1.73 sqM); Potassium 4.1 mmol/L (3.5-5.1); Sodium 140 mmol/L (137-145)
[2017-04-04] MEDS ORDERED: PANTOPRAZOLE 40 MG/10 ML VIAL IV SCH (09:00)
--- NOTE | 2017-04-04 09:25 | P.DS ---
Providers Date of admission: 04/03/17 14:05 Expected date of discharge: 04/04/17 Attending physician: Cathy Jackson DO Consults: 04/03/17 14:50 Consult Physician Routine Consulting Provider: Alfredito Newsome Reason/Comments: FB aspiration Do you want consulting provider notified?: Yes Primary care physician: Lauren Denson - Discharge Diagnosis(es) (1) Aspiration of foreign body Status: Acute (2) Chest pain Status: Acute (3) Pneumonia Status: Acute (4) Polysubstance abuse Status: Acute (5) Schizophrenia Status: Acute Priority: High Hospital Course: Patient is a 22-year-old female with a past medical history of asthma , kidney stones, irritable bowel syndrome, closed head injury, and cocaine abuse who presented with complaints of shortness of breath. She had swallowed a piece of her crack pipe approximately 2 days earlier. She had increasing shortness of breath and therefore presented to the emergency department. In the ER her x-ray showed a foreign body in the right mainstem bronchus, right middle lobe. She had subsequent collapse of that low. Blood work showed a leukocytosis and she was subsequently found to have postobstructive pneumonia. She was given Levaquin and clindamycin as well as IV fluids and pain control. She was admitted as observation. Pulmonary was consult with Dr. Hinojosa on the patient went to the endoscopy suite. She had a bronchitis and foreign body was removed. There was copious amounts of purulent material. By the morning of her leukocytosis was resolved. Her shortness of breath had significantly improved. Her chest pain was gone. She was determined stable for discharge home. She'll complete a course of 10 days of antibiotics along with a probiotic. She was instructed to abstain from any illicit substances. SHe was discharged home in stable condition. Patient seen and examined at bedside. Vital signs reviewed and stable. General: [non toxic], [no distress], [appears at stated age] Derm: [no rashes], [no lesions] Head: [atraumatic], [normocephalic], [symmetric] Eyes: [EOMI], [no lid lag], [anicteric sclera] ENT: [no post nasal drip], [no thrush] Mouth: [no lip lesion], [mucus membranes moist] Cardiovascular: [S1S2 reg], [no murmur], [positive posterior tibial pulse bilateral], Lungs: Rhonchi right base , [no accessory muscle use] Abdominal: [soft], [ nontender to palpation], [no guarding], [no appreciable organomegaly] Ext: [no gross muscle atrophy], [no edema], [no contractures] Neuro: [ CN II-XI grossly intact], [no focal neuro deficits] Psych: [Alert], [oriented], affect A total of 45 minutes of time were spent preparing this complex discharge summary . Pertinent Studies: Chest x-ray with right middle lobe pneumonia and metallic damp to the over the right heart border Procedures: Bronchoscopy with removal of foreign body and bronchial washing 04/04/2017 Patient Condition at Discharge: Good Plan - Discharge Summary New Discharge Prescriptions: New Clindamycin HCl 600 mg PO Q8HR #60 cap Ibuprofen [Motrin] 600 mg PO Q8HR PRN #30 tab PRN Reason: Pain Lactobacillus Acidoph & Bulgar [Lactinex] 1 each PO BID #30 packet Levofloxacin [Levaquin] 750 mg PO DAILY #10 tab Continue fluPHENAZine DECANOATE [Prolixin Decanoate] 50 mg IM [id number] Discharge Medication List fluPHENAZine DECANOATE [Prolixin Decanoate] 50 mg IM [id number] 04/03/17 [History] Clindamycin HCl 600 mg PO Q8HR #60 cap 04/04/17 [Rx] Ibuprofen [Motrin] 600 mg PO Q8HR PRN #30 tab 04/04/17 [Rx] Lactobacillus Acidoph & Bulgar [Lactinex] 1 each PO BID #30 packet 04/04/17 [Rx] Levofloxacin [Levaquin] 750 mg PO DAILY #10 tab 04/04/17 [Rx] Follow up Appointment(s)/Referral(s): Lauren Denson MD [Primary Care Provider] - 04/13/17 11:00 am Patient Instructions/Handouts: Pneumonia (DC) Activity/Diet/Wound Care/Special Instructions: Regular diet, activity as tolerated, abstain from cocaine and other illicit drugs Discharge Disposition: HOME SELF-CARE Pending Studies Pending Results: Bronchial washing
--- NOTE | 2017-04-04 11:19 | PCN ---
PROCEDURE NOTE PROCEDURE PERFORMED: Bronchoscopy, airway examination, therapeutic lavage, removal foreign body from the right lung, right distal bronchus intermedius. PREOP DIAGNOSIS: Foreign body in right lung, right distal bronchus intermedius. POSTOP DIAGNOSIS: Foreign body in right lung, right distal bronchus intermedius. PROCEDURE PERFORMED BY: Dr. Newsome and Dr. Almeida. The patient's procedure was done in room #1 endoscopy. ANESTHESIOLOGIST: Dr. Moser. ANESTHESIA: General anesthesia unconscious sedation. DESCRIPTION OF PROCEDURE: After the patient was adequately sedated, being fully monitored. Bronchoscope was inserted through the right nostril. Passed through the right nasopharynx into the oropharynx. The hypopharynx was identified and topicalized. The hypopharyngeal structures all appeared normal. This includes anterior commissure, true cords, false cords, arytenoids, piriform sinuses, right and left vallecula and epiglottis. After topicalization, the bronchoscope was passed through the glottic opening into the trachea. Trachea appeared normal. We went directly right down into the right lung. The right upper lobe was normal. There was a foreign body lodged in the distal bronchus intermedius completely obstructing the right middle lobe and the right lower lobe. We used a small forceps to grab the object and pull it up into the nasopharynx. We then used a pediatric Kala forceps to remove it from the nostril. The patient tolerated the procedure well. There was no immediate complication. There was no significant bleeding. We did do a lavage of the right middle lobe given the fact there was a lot of secretions and purulence noted in the distal bronchus intermedius. That will be sent to the laboratory for analysis. The bronchoscope was withdrawn. The patient will be recovered and admitted to the hospital. MMODL / IJN: [id number] /
--- NOTE | 2017-04-04 12:51 | PN ---
PROGRESS NOTE A 22-year-old female who we saw yesterday in consultation in the emergency department. The patient apparently was using her crack pipe and apparently inhaled or aspirated into her right lung a metallic type device. We saw her in the emergency room. We did a consultation. Supplement with that we took her to the endoscopy suite where after some difficulty, we were able to retrieve this foreign body. It had lodged itself in the distal bronchus intermedius and was completely obstructing the right middle lobe and right lower lobe. The patient had significant purulence behind the obstruction. She was placed on antibiotics and she will likely be discharged today. Other than that, things are going well. She is feeling much better. Still coughing. Not producing any phlegm. No fever, no chills. Was apparently going to be discharged home on some Levaquin and clindamycin according to the primary staff. Current vital signs include a temperature which is in normal range. Heart rate 84, respiratory rate 16, blood pressure 131/67, saturation 96% on room air. No acute distress. HEENT examination is grossly unremarkable. Mucous membranes are moist. No oral lesions. NECK: Supple. Full range of motion. No adenopathy or thyromegaly. Neck veins are flat. Cardiovascular examination reveals regular rhythm and rate. S1, S2 normal. There is no S3, S4, or murmur. Lungs reveal diminished breath sounds. There are some coarse rhonchi, particularly on the right side. No wheezes or crackles. Abdomen is soft. Bowel sounds are heard. Extremities are intact. No cyanosis, clubbing, or edema. Skin without rash. Neurologic examination is brief but nonfocal. No additional labs to review. No microbiology. No subsequent x-rays to review. Discharge summary noted. ASSESSMENT: 1. Status post foreign body aspiration, completely obstructing the right middle lobe and right lower lobe bronchus. 2. History of asthma. 3. History of gastroesophageal reflux disease. 4. Chronic tobacco use. 5. History of polysubstance abuse. PLAN: The patient will be discharged per the primary service. Additional recommendations and suggestions are forthcoming. Antibiotics are recommended. We will continue to follow. Prognosis is guarded. MMODL / IJN: [id number] /
[2017-04-04] MEDS ORDERED: LEVOFLOXACIN 750MG-D5W PMX 750 MG in DEXTROSE/WATER 1 150ML.BAG IVPB SCH (13:00)
[2017-04-05] MEDS ORDERED: ENOXAPARIN 40 MG/0.4 ML SYRINGE SQ SCH (09:00)
== END 2017-04-04 11:08 | disposition home or self-care (01) ==
LOC: EC 10:28 → 4MS4W 14:05
PROVIDERS: ADMIT Internal Medicine; ATTEND Internal Medicine
DX: T17.890A Other foreign object in other parts of respiratory tract causing asphyxiation, initial encounter (principal); J18.9 Pneumonia, unspecified organism; F19.10 Other psychoactive substance abuse, uncomplicated; F20.9 Schizophrenia, unspecified; K21.9 Gastro-esophageal reflux disease without esophagitis; F17.200 Nicotine dependence, unspecified, uncomplicated; Z79.899 Other long term (current) drug therapy; Z88.0 Allergy status to penicillin; Z88.2 Allergy status to sulfonamides; Z88.8 Allergy status to other drugs, medicaments and biological substances; E66.9 Obesity, unspecified; Z68.36 Body mass index [BMI] 36.0-36.9, adult; F10.10 Alcohol abuse, uncomplicated; F14.10 Cocaine abuse, uncomplicated; J45.20 Mild intermittent asthma, uncomplicated; Z87.442 Personal history of urinary calculi; K58.9 Irritable bowel syndrome, unspecified; I95.9 Hypotension, unspecified; Z87.820 Personal history of traumatic brain injury; F41.9 Anxiety disorder, unspecified; F43.10 Post-traumatic stress disorder, unspecified; F31.9 Bipolar disorder, unspecified
CPT/HCPCS: 99285; 96365; 96366; 96367; 96375; 36415; 94640; 88108; 88305; 80053; 80048; 89050; 83605; 85025 ×2; 84703; 87040; 87070; 87205; 87081; 87430; 71020; 31624; 31635; G0378 ×2; J2250; J2001; J1885; J2270 ×2; J2704; C9113

== ENCOUNTER 2017-04-05 12:22 | Observation (INO) | payer OTHER ==
[2017-04-05] MEDS ORDERED: SODIUM CHLORIDE 0.9% 1,000 ML IV STA (13:25)
[2017-04-05] MEDS ORDERED: LEVOFLOXACIN 750MG-D5W PMX 750 MG in DEXTROSE/WATER 1 150ML.BAG IVPB STA (13:25)
[2017-04-05] MEDS ORDERED: HYDROmorphone 1 MG/ML 1 ML SYRINGE IVP STA ×2 (13:31→15:18)
[2017-04-05] MEDS ORDERED: METOCLOPRAMIDE 5 MG/ML 2 ML VIAL IVP STA (13:33)
[2017-04-05 13:50] LABS: Appearance,Urine Cloudy (Clear); Bacteria,Urine Rare /hpf; Bilirubin,Urine Negative (Negative); Glucose,Urine (UA) Negative (Negative); Ketones,Urine 2+ (Negative); Leukocyte Esterase,Urine Trace (Negative); Mucus,Urine Rare /hpf; Nitrite,Urine Negative (Negative); PH, Urine 6.5 (5.0-8.0); Particle Count 5103; Protein,Urine Trace (Negative); RBC,Urine 1 /hpf (0-5); Specific Gravity,Urine 1.017 (1.001-1.035); Squamous Epithelial Cell,Urine 8 /hpf (0-4); UA Billing (MACRO vs. MICRO) MICRO; Urobilinogen,Urine <2.0 mg/dL (<2.0); WBC,Urine 2 /hpf (0-5)
[2017-04-05 14:00] LABS: Anisocytosis Slight; Basophils % (A) 0 %; CH 27.9; CHCM 34.3; Eosinophils # (A) 0.2 k/uL (0-0.7); Eosinophils % (A) 2 %; HCT 36.8 % (34.0-46.0); HDW 2.73; HGB 12.2 gm/dL (11.4-16.0); Luc % (Auto) 1; Lymphocytes # (A) 1.6 k/uL (1.0-4.8); Lymphocytes % (A) 20 %; MCH 27.1 pg (25.0-35.0); MCHC 33.2 g/dL (31.0-37.0); MCV 81.7 fL (80.0-100.0); Mean Platelet Volume 9.3; Monocytes # (A) 0.3 k/uL (0-1.0); Monocytes % (A) 3 %; Neutrophils % (A) 74 %; RBC 4.51 m/uL (3.80-5.40); WBC 8.2 k/uL (3.8-10.6); WBC (Perox) 8.56
[2017-04-05 14:07] LABS: ALT 47 U/L (9-52); AST 37 U/L (14-36); Alkaline Phosphatase 84 U/L (38-126); Anion Gap 11 mmol/L; Blood Urea Nitrogen 7 mg/dL (7-17); Calcium 9.4 mg/dL (8.4-10.2); Carbon Dioxide 22 mmol/L (22-30); Chloride 109 mmol/L (98-107); Glucose 79 mg/dL (74-99); Non-African American GFR(MDRD) >60 (>60 ml/min/1.73 sqM); Potassium 4.3 mmol/L (3.5-5.1); Sodium 142 mmol/L (137-145); Total Bilirubin 0.3 mg/dL (0.2-1.3); Total Protein 6.9 g/dL (6.3-8.2)
[2017-04-05 14:09] LABS: INR 1.1 (<1.2); Partial Thromboplastin Time 25.9 sec (22.0-30.0)
[2017-04-05] MEDS ORDERED: RX INFO: IV CONTRAST WAS GIVEN 1 EACH MISC MISCELLANE PRN (14:17)
--- NOTE | 2017-04-05 14:17 | XR ---
EXAMINATION TYPE: XR chest 2V DATE OF EXAM: 04/05/2017 CLINICAL HISTORY: Difficulty in breathing TECHNIQUE: Frontal and lateral views of the chest are obtained. COMPARISON: 04/03/2017 FINDINGS: Significantly improved right middle lobe pneumonia with mild residual changes seen. Mild pe rsistent patchy density right upper lobe. The left lung is clear. The cardiac silhouette size is with in normal limits. The osseous structures are intact. IMPRESSION: Significantly improved right middle lobe pneumonia with mild residual changes seen. Mild persistent patchy density right upper lobe.
--- NOTE | 2017-04-05 14:23 | ED ---
SOB HPI - General Chief Complaint: Shortness of Breath Stated Complaint: SENTHIL Time Seen by Provider: 04/05/17 12:27 Source: patient, EMS Mode of arrival: EMS Limitations: no limitations - History of Present Illness Initial Comments: 22 years old female planing about chest pain on the right side, its worse with deep breaths. She sales a foreign object removed from her trachea/lungs 3 days ago and she said after that she was supposed to take some antibiotics in the middle 8/and the same area and it worse with the deep breaths. He is on a controls denies any history of PE or DVT at this point. She does have a history of for schizophrenia. Denies any headaches no neck stiffness no abdominal pain she does have a chest pain and shortness of breath no frequency urgency dysuria - Related Data Home Medications Medication Instructions Recorded Confirmed fluPHENAZine DECANOATE [Prolixin 50 mg IM [id number] 04/03/17 04/05/17 Decanoate] Budesonide [Pulmicort Flexhaler] 2 puff INHALATION RT-BID 04/05/17 04/05/17 Lactobacillus Acidoph & Bulgar 1 packet PO BID 04/05/17 04/05/17 [Lactinex] Medroxyprogesterone Acetate 150 mg IM Q84D 04/05/17 04/05/17 [Depo-Provera] Nicotine Polacrilex [Nicotine Gum] 4 mg BUCCAL DIRECTED 04/05/17 04/05/17 Previous Rx's Medication Instructions Recorded Clindamycin HCl 600 mg PO Q8HR #60 cap 04/04/17 Ibuprofen [Motrin] 600 mg PO Q8HR PRN #30 tab 04/04/17 Levofloxacin [Levaquin] 750 mg PO DAILY #10 tab 04/04/17 Allergies Allergy/AdvReac Type Severity Reaction Status Date / Time Penicillins Allergy Severe Anaphylaxis Verified 04/05/17 13:29 Sulfa (Sulfonamide Allergy Severe Anaphylaxis Verified 04/05/17 13:29 Antibiotics) diphenhydramine HCl Allergy Rash/Hives Verified 04/05/17 13:29 [From Benadryl] Review of Systems ROS Statement: Those systems with pertinent positive or pertinent negative responses have been documented in the HPI. ROS Other: All systems not noted in ROS Statement are negative. 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 chronic tobacco use and dependence, polysubstance , uti, bronchitis. "on depo shot-last period a year ago" History of Any Multi-Drug Resistant Organisms: None Reported Past Surgical History: No Surgical Hx Reported Additional Past Surgical History / Comment(s): bilateral wrist surgeries secondary to ganglionic cysts ,RENAL STENTS -since removed Past Anesthesia/Blood Transfusion Reactions: No Reported Reaction Additional Past Anesthesia/Blood Transfusion Reaction / Comment(s): Patient does not believe she has had a reaction to anesthesia. Past Psychological History: Anxiety, Bipolar, Depression, Panic Disorder, PTSD, Schizophrenia Smoking Status: Current every day smoker - Past Family History Mother Family Medical History: Asthma, Fibromyalgia Father Family Medical History: No Reported History Additional Family Medical History / Comment(s): bipolar, sever seasonal allergies Brother(s) Family Medical History: No Reported History Sister(s) Family Medical History: No Reported History General Exam - General Exam Comments Initial Comments: General: The patient is awake and alert, in no distress, she does look anxious Skin: Skin is warm and dry and no rashes or lesions are noted. Eye: Pupils are equal, round and reactive to light, extra-ocular movements are intact; there is normal conjunctiva bilaterally. Ears, nose, mouth and throat: There are moist mucous membranes and no oral lesions. Neck: The neck is supple, there is no tenderness or JVD. Cardiovascular: There is a regular rate and rhythm. No murmur, rub or gallop is appreciated. Respiratory: To auscultation bilateral, some crackles on the right side so mild wheezzing Gastrointestinal: Soft, non-distended, non-tender abdomen without masses or organomegaly noted. There is no rebound or guarding present. Bowel sounds are unremarkable. Back: There is no tenderness to palpation in the midline. There is no obvious deformity. Musculoskeletal: Normal ROM, no tenderness, There is no pedal edema. There is no calf tenderness or swelling. No cords were appreciated. Neurological: CN II-XII intact, Cranial nerves III through XII are intact. There are no obvious motor or sensory deficits. Coordination appears grossly intact. Speech is normal. Psychiatric: Cooperative, anxious. Limitations: no limitations Course Vital Signs 04/05/17 12:23 Temperature 97.9 F Pulse Rate 98 Respiratory 20 Rate Blood Pressure 105/59 O2 Sat by Pulse 99 Oximetry Him EKG is normal sinus rhythm ventricular rate is 90 OK interval is 134 QRS duration is 72 QT/QTC 374/557 This EKG reveals some T-wave inversion in lead 3 also noticed some T-wave inversion in V1 and V2 and V3 no ST elevation or ST depression noticed Serum reassessed at 1420, noticed chest x-ray showed some infiltrate, d-dimer is quite elevated beta hCG is negative she would need a CT angiogram chest to rule out any PE since she has a pleuritic chest pain and d-dimer is elevated and she is on controls - Reevaluation(s) Reevaluation #1: 04/05/17 15:19 CT angiogram ruled out any PE did confirm the pneumonia also CK CK is quite elevated by definition at [facility] rhabdomyolysis, did discuss these findings with the patient she is agreeable to come in for some IV hydration and IV antibiotics she be admitted [facility] Medical Decision Making - Lab Data Result diagrams: 04/05/17 13:41 04/05/17 13:41 Lab Results 04/05/17 04/05/17 04/05/17 Range/Units 13:34 13:34 13:41 WBC (3.8-10.6) k/uL RBC (3.80-5.40) m/uL Hgb (11.4-16.0) gm/dL Hct (34.0-46.0) % MCV (80.0-100.0) fL MCH (25.0-35.0) pg MCHC (31.0-37.0) g/dL RDW (11.5-15.5) % Plt Count (150-450) k/uL Neutrophils % % Lymphocytes % % Monocytes % % Eosinophils % % Basophils % % Neutrophils # (1.3-7.7) k/uL Lymphocytes # (1.0-4.8) k/uL Monocytes # (0-1.0) k/uL Eosinophils # (0-0.7) k/uL Basophils # (0-0.2) k/uL Anisocytosis PT (9.0-12.0) sec INR (<1.2) APTT (22.0-30.0) sec D-Dimer (<0.60) mg/L FEU Sodium (137-145) mmol/L Potassium (3.5-5.1) mmol/L Chloride (98-107) mmol/L Carbon Dioxide (22-30) mmol/L Anion Gap mmol/L BUN (7-17) mg/dL Creatinine (0.52-1.04) mg/dL Est GFR (MDRD) Af Amer (>60 ml/min/1.73 sqM) Est GFR (MDRD) Non-Af (>60 ml/min/1.73 sqM) Glucose (74-99) mg/dL Calcium (8.4-10.2) mg/dL Total Bilirubin (0.2-1.3) mg/dL AST (14-36) U/L ALT (9-52) U/L Alkaline Phosphatase (38-126) U/L Total Creatine Kinase 870 H (30-135) U/L CK-MB (CK-2) 1.0 (0.0-2.4) ng/mL CK-MB (CK-2) Rel Index 0.1 Troponin I <0.012 (0.000-0.034) ng/mL Total Protein (6.3-8.2) g/dL Albumin (3.5-5.0) g/dL Urine Color Yellow Urine Appearance Cloudy H (Clear) Urine pH 6.5 (5.0-8.0) Ur Specific [place] 1.017 (1.001-1.035) Urine Protein Trace H (Negative) Urine Glucose (UA) Negative (Negative) Urine Ketones 2+ H (Negative) Urine Blood Moderate H (Negative) Urine Nitrite Negative (Negative) Urine Bilirubin Negative (Negative) Urine Urobilinogen <2.0 (<2.0) mg/dL Ur Leukocyte Esterase Trace H (Negative) Urine RBC 1 (0-5) /hpf Urine WBC 2 (0-5) /hpf Ur Squamous Epith Cells 8 H (0-4) /hpf Urine Bacteria Rare H (None) /hpf Urine Mucus Rare H (None) /hpf Urine HCG, Qual Not Detected (Not Detectd) 04/05/17 04/05/17 04/05/17 Range/Units 13:41 13:41 13:41 WBC 8.2 (3.8-10.6) k/uL RBC 4.51 (3.80-5.40) m/uL Hgb 12.2 (11.4-16.0) gm/dL Hct 36.8 (34.0-46.0) % MCV 81.7 (80.0-100.0) fL MCH 27.1 (25.0-35.0) pg MCHC 33.2 (31.0-37.0) g/dL RDW 16.0 H (11.5-15.5) % Plt Count 240 (150-450) k/uL Neutrophils % 74 % Lymphocytes % 20 % Monocytes % 3 % Eosinophils % 2 % Basophils % 0 % Neutrophils # 6.0 (1.3-7.7) k/uL Lymphocytes # 1.6 (1.0-4.8) k/uL Monocytes # 0.3 (0-1.0) k/uL Eosinophils # 0.2 (0-0.7) k/uL Basophils # 0.0 (0-0.2) k/uL Anisocytosis Slight PT 11.0 (9.0-12.0) sec INR 1.1 (<1.2) APTT 25.9 (22.0-30.0) sec D-Dimer 0.88 H (<0.60) mg/L FEU Sodium 142 (137-145) mmol/L Potassium 4.3 (3.5-5.1) mmol/L Chloride 109 H (98-107) mmol/L Carbon Dioxide 22 (22-30) mmol/L Anion Gap 11 mmol/L BUN 7 (7-17) mg/dL Creatinine 0.69 (0.52-1.04) mg/dL Est GFR (MDRD) Af Amer >60 (>60 ml/min/1.73 sqM) Est GFR (MDRD) Non-Af >60 (>60 ml/min/1.73 sqM) Glucose 79 (74-99) mg/dL Calcium 9.4 (8.4-10.2) mg/dL Total Bilirubin 0.3 (0.2-1.3) mg/dL AST 37 H (14-36) U/L ALT 47 (9-52) U/L Alkaline Phosphatase 84 (38-126) U/L Total Creatine Kinase (30-135) U/L CK-MB (CK-2) (0.0-2.4) ng/mL CK-MB (CK-2) Rel Index Troponin I (0.000-0.034) ng/mL Total Protein 6.9 (6.3-8.2) g/dL Albumin 3.9 (3.5-5.0) g/dL Urine Color Urine Appearance (Clear) Urine pH (5.0-8.0) Ur Specific [place] (1.001-1.035) Urine Protein (Negative) Urine Glucose (UA) (Negative) Urine Ketones (Negative) Urine Blood (Negative) Urine Nitrite (Negative) Urine Bilirubin (Negative) Urine Urobilinogen (<2.0) mg/dL Ur Leukocyte Esterase (Negative) Urine RBC (0-5) /hpf Urine WBC (0-5) /hpf Ur Squamous Epith Cells (0-4) /hpf Urine Bacteria (None) /hpf Urine Mucus (None) /hpf Urine HCG, Qual (Not Detectd) Disposition Clinical Impression: Chest pain, Pleuritic chest pain, Pneumonia, Rhabdomyolysis Disposition: ADMITTED IP TO THIS HOSP Condition: Good Referrals: Lauren Denson MD [Primary Care Provider] - 1-2 days
[2017-04-05 14:32] LABS: Creatine Kinase 870 U/L (30-135)
[2017-04-05 14:44] LABS: Troponin I <0.012 ng/mL (0.000-0.034)
--- NOTE | 2017-04-05 14:50 | CT ---
EXAMINATION TYPE: CT angio chest DATE OF EXAM: 04/05/2017 COMPARISON: NONE HISTORY: Cough, cogestion and chest pain CT DLP: 360.2 mGycm CONTRAST: CT chest with contrast and 3D reconstruction with MIP imaging is performed with IV Contrast, patient injected with 100 mL of Omnipaque 350. Contrast-enhanced CT of the chest was performed through the course of the pulmonary arteries with rachel g and mediastinal window settings submitted. 3D reconstruction with MIP imaging was also performed. PULMONARY ARTERIES: The pulmonary arteries and their major tributaries are patent. I do not see magalis dence for sizable filling defect to suggest pulmonary embolic process. LUNGS: Right upper lobe airspace infiltrate compatible with pneumonia. Small right basilar pleural ef fusion. No pulmonary nodule or mass is detected. No pleural effusion. MEDIASTINUM: Thoracic aorta is of normal caliber . The heart is not enlarged. No evidence for media stinal mass. No mediastinal lymph nodes greater than 1cm. HILAR STRUCTURES: No evidence for mass. No hilar lymph nodes greater than 1 cm. UPPER ABDOMEN: No significant abnormality is seen. IMPRESSION: 1. No evidence for Pulmonary embolism at this time. 2. Right upper lobe airspace infiltrate compatible with pneumonia. Small right basilar pleural effus ion.
[2017-04-05] MEDS ORDERED: SODIUM CHLORIDE 0.9% 1,000 ML IV ONE (15:24)
[2017-04-05] MEDS ORDERED: NICOTINE POLACRILEX 4 MG BUCCAL SCH (15:30)
[2017-04-05] MEDS ORDERED: NON-FORMULARY DRUG (Medroxyprogesterone Acetate [Depo-Provera] 150 MG) IM SCH (15:30)
[2017-04-05] MEDS ORDERED: fluPHENAZine DECANOATE 25 MG/ML 5ML MDV IM ONE (16:16)
[2017-04-05] MEDS ORDERED: ALBUTEROL NEBULIZED 2.5 MG/3 ML INHALATION PRN (16:20)
--- NOTE | 2017-04-05 16:24 | P.HPIM ---
History of Present Illness H&P Date: 04/05/17 Chief Complaint: Chest pain Patient is a 22-year-old female with a past medical history of cocaine abuse, asthma, GERD, and schizophrenia who presented to the emergency department with complaints of right sided pleuritic chest pain. She had been here on April 03 and was diagnosed with pneumonia and a foreign body aspiration. She underwent broncho-through both her foreign body on April 03. She was doing better on April 04 and was subsequently discharged home. Patient states that she went home and took 1 dose of her antibiotic and 1 dose of Motrin. She states the Motrin did not help she continued to have right- sided chest pain so she came back to the hospital. She feels as though her wheezing is worse but her shortness of breath is better. Her pain was not relieved with Motrin, it is worse with deep breathing. She has not had anybody at home with her. She denies any fevers, chills, nausea, vomiting, or diarrhea. She has not used an illicit substances since discharged from the hospital. She states that she was supposed to take Prolixin today at [facility] but proceeded to the hospital and started. She denies any thoughts of harming herself or harming other people. She does not feel depressed or anxious. She denies any visual or auditory hallucinations. She feels as though her schizophrenia is well controlled. In the emergency department she underwent an extensive evaluation. CT of the chest showed a right upper lobe pneumonia. There was no redemonstration of any foreign body. Her white blood cell count was normal and she was afebrile. She did have a slightly elevated CPK. She will be admitted as observation overnight. There was some concern from the ER physician for possible suicidal ideation secondary to her perceived noncompliance. I do not elicit this on my exam however we will defer to psychiatry to make final decision. Review of Systems General: no fever/chills, no rigors, no weight loss/weight gain, decreased appetite Eyes: No double vision, no unusual blurry vision, no loss of vision ENT: No rhinorrhea, congestion, no trush Cardiovascular: No chest pain, no palpitations, no syncope, no edema, No paroxysmal nocturnal dyspnea, No dizziness Pulmonary: + Shortness of breath, + wheeze, nonproductive cough, hemoptysis Abdominal: No abdominal pain, no constipation, no diarrhea, no vomiting, no nausea, no distention Genitourinary: No dysuria, no urinary frequency, no hematuria, no unusual discharge/odor Neuro: No unusual paresthesias, no unusual paresis/paralysis, no headache Dermatologic: No unusual rashes, no unusual lesions, no unusual changes in nails Endocrinology: No intolerance to heat/cold, no excessive thirst,] no unusual fatigue Hematologic: No unusual bruising or bleeding, no unusual cervical lymphadenopathy Psychiatric: No changes in mood or behaviors, + insomnia secondary to coughing, no suicidal or homicidal thoughts Past Medical History Past Medical History: Asthma, GERD/Reflux Additional Past Medical History / Comment(s): kidney stones, hypotension, irritable bowel syndrome , obesity, asthma, 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 Past Psychological History: Anxiety, Panic Disorder, PTSD, Schizophrenia Smoking Status: Current every day smoker Past Drug Use History: Cocaine, Marijuana - Past Family History Mother Family Medical History: Asthma, Fibromyalgia Father Family Medical History: No Reported History Additional Family Medical History / Comment(s): bipolar, sever seasonal allergies Brother(s) Family Medical History: No Reported History Sister(s) Family Medical History: No Reported History Medications and Allergies Home Medications Medication Instructions Recorded Confirmed Type fluPHENAZine DECANOATE [Prolixin 50 mg IM [id number] 04/03/17 04/05/17 History Decanoate] Clindamycin HCl 600 mg PO Q8HR #60 cap 04/04/17 04/05/17 Rx Ibuprofen [Motrin] 600 mg PO Q8HR PRN #30 tab 04/04/17 04/05/17 Rx Levofloxacin [Levaquin] 750 mg PO DAILY #10 tab 04/04/17 04/05/17 Rx Budesonide [Pulmicort Flexhaler] 2 puff INHALATION RT-BID 04/05/17 04/05/17 History Lactobacillus Acidoph & Bulgar 1 packet PO BID 04/05/17 04/05/17 History [Lactinex] Medroxyprogesterone Acetate 150 mg IM Q84D 04/05/17 04/05/17 History [Depo-Provera] Nicotine Polacrilex [Nicotine Gum] 4 mg BUCCAL DIRECTED 04/05/17 04/05/17 History Allergies Allergy/AdvReac Type Severity Reaction Status Date / Time Penicillins Allergy Severe Anaphylaxis Verified 04/05/17 13:29 Sulfa (Sulfonamide Allergy Severe Anaphylaxis Verified 04/05/17 13:29 Antibiotics) diphenhydramine HCl Allergy Rash/Hives Verified 04/05/17 13:29 [From Benadryl] Physical Exam Osteopathic Statement: *. No significant issues noted on an osteopathic structural exam other than those noted in the History and Physical/Consult. Vitals: Vital Signs Temp Pulse Resp BP Pulse Ox 04/05/17 15:22 97 F L 90 16 120/68 99 04/05/17 12:23 97.9 F 98 20 105/59 99 Intake and Output 04/05/17 04/05/17 04/05/17 06:59 14:59 22:59 Other: Weight 90.718 kg Patient Weight 04/06/17 06:59 Weight 90.718 kg General: non toxic, no distress, appears at stated age, normal weight Derm: no rashes, no lesions, no ulcers, no unusual ecchymoses Head: atraumatic, normocephalic, symmetric Eyes: EOMI, no lid lag, anicteric sclera, pupils equal round reactive to light ENT: no post nasal drip, no thrush , nearest patent, no pharyngeal erythema Neck: No thyromegaly, no cervical lymphadenopathy, trachea midline, supple Mouth: no lip lesion, mucus membranes moist Cardiovascular: + Tenderness to palpation over right chest wall, S1S2 reg, no murmur, positive posterior tibial pulse bilateral, no edema , no JVD, no clubbing, no cyanosis, capillary refill less than 2 seconds Lungs: Rhonchi bilaterally without wheeze, no accessory muscle use Abdominal: soft, nontender to palpation, no guarding, no appreciable organomegaly, normal bowel sounds Ext: no gross muscle atrophy, muscle strength 5 out of 5 in all 4 extremities grossly, no contractures, Neuro: CN II-XI grossly intact, light touch intact all 4 extremities, finger to nose within normal limits, Psych: Alert, oriented, appropriate affect Results CBC & Chem 7: 04/05/17 13:41 04/05/17 13:41 Labs: Abnormal Lab Results - Last 24 Hours (Table) 04/05/17 04/05/17 04/05/17 Range/Units 13:34 13:41 13:41 RDW 16.0 H (11.5-15.5) % D-Dimer (<0.60) mg/L FEU Chloride (98-107) mmol/L AST (14-36) U/L Total Creatine Kinase 870 H (30-135) U/L Urine Appearance Cloudy H (Clear) Urine Protein Trace H (Negative) Urine Ketones 2+ H (Negative) Urine Blood Moderate H (Negative) Ur Leukocyte Esterase Trace H (Negative) Ur Squamous Epith Cells 8 H (0-4) /hpf Urine Bacteria Rare H (None) /hpf Urine Mucus Rare H (None) /hpf 04/05/17 04/05/17 Range/Units 13:41 13:41 RDW (11.5-15.5) % D-Dimer 0.88 H (<0.60) mg/L FEU Chloride 109 H (98-107) mmol/L AST 37 H (14-36) U/L Total Creatine Kinase (30-135) U/L Urine Appearance (Clear) Urine Protein (Negative) Urine Ketones (Negative) Urine Blood (Negative) Ur Leukocyte Esterase (Negative) Ur Squamous Epith Cells (0-4) /hpf Urine Bacteria (None) /hpf Urine Mucus (None) /hpf Chest x-ray: report reviewed CT scan - chest: report reviewed, image reviewed Thrombosis Risk Factor Assmnt - DVT/VTE Prophylaxis DVT/VTE Prophylaxis: Pharmacologic Prophylaxis ordered Assessment and Plan Plan: #Pleuritic chest pain secondary to pneumonia and prior foreign body in -Toradol -Prednisone -[place] #Right sided pneumonia -Await sputum cultures from bronchoscopy done 04/03 -Continue with Levaquin and clindamycin as patient is ALLERGIC to penicillins and sulfa drugs and needs anaerobic coverage secondary to prior retained foreign body -Chest x-ray until clear -Mucinex -Incentive spirometry -Prednisone -Albuterol #Schizophrenia -ER perceived that she may have some suicidal ideation, I am unable to elicit this on my history however will defer to psych consultation for definitive evaluation. #Mild intermittent asthma with mild exacerbation -Oral prednisone 5 days -Albuterol #GERD -PPI #History of cocaine abuse - Cessation #Tobacco use - nicotine replacement - Cessation encouraged #Obesity -Outpatient structured weight loss Chronic: - Irritable bowel syndrome - Hypotension - History of closed head injury Surrogate decision-maker: Jonelle Nolen, mother [phone] CODE STATUS: Full DVT prophylaxis: hepain Discussed with: patient, ED physician Anticipated discharge: [address]: home A total of 40 minutes was spent on the care of this complex patient more than 50% of the time was spent in counseling and care coordination.
[2017-04-05] MEDS ORDERED: fluPHENAZine DECANOATE 25 MG/ML 5ML MDV IM SCH (17:00)
[2017-04-05 17:01] VITALS: RESP 18
[2017-04-05] MEDS: BUDESONIDE 1 MG/2 ML NEBU INHALATION SCH (19:20)
[2017-04-05] MEDS: ALBUTEROL NEBULIZED 2.5 MG/3 ML INHALATION SCH (19:22)
[2017-04-05] MEDS: HYDROcodone/APAP 5-325MG 1 EACH TAB PO PRN (19:52)
[2017-04-05] MEDS: KETOROLAC 30 MG/ML 1 ML VIAL IVP SCH ×2 (19:54→23:56)
[2017-04-05] MEDS ORDERED: ONDANSETRON 4 MG/2 ML VIAL IVP PRN (20:30)
[2017-04-05] MEDS ORDERED: MORPHINE SULFATE 2 MG/ML SYRINGE IVP ONE (20:31)
[2017-04-05] MEDS: NICOTINE 14MG/24HR PATCH TRANSDERM SCH (20:55)
[2017-04-05] MEDS: LACTOBACILLUS ACIDOPH & BULGAR 1 EACH PACKET PO SCH (21:56)
[2017-04-05] MEDS: guaiFENesin 600 MG TABLET.ER PO SCH (22:02)
[2017-04-05] MEDS: predniSONE 20 MG TAB PO SCH (22:02)
[2017-04-05] MEDS: CLINDAMYCIN 150 MG CAP PO SCH (22:02)
[2017-04-06] MEDS: CLINDAMYCIN 150 MG CAP PO SCH ×3 (05:49→16:25)
[2017-04-06] MEDS: HEPARIN SODIUM,PORCINE 5,000 UNIT/ML 1 ML VIAL SQ SCH ×3 (05:49→16:26)
[2017-04-06] MEDS: ALBUTEROL NEBULIZED 2.5 MG/3 ML INHALATION SCH ×3 (08:32→15:19)
[2017-04-06] MEDS: BUDESONIDE 1 MG/2 ML NEBU INHALATION SCH (08:32)
[2017-04-06 08:58] VITALS: BMI 33.5
[2017-04-06] MEDS: LACTOBACILLUS ACIDOPH & BULGAR 1 EACH PACKET PO SCH (09:09)
[2017-04-06] MEDS: guaiFENesin 600 MG TABLET.ER PO SCH (09:09)
[2017-04-06] MEDS: NICOTINE 14MG/24HR PATCH TRANSDERM SCH (09:10)
[2017-04-06] MEDS: predniSONE 20 MG TAB PO SCH (09:10)
--- NOTE | 2017-04-06 09:10 | XR ---
EXAMINATION TYPE: XR chest 1V portable DATE OF EXAM: 04/06/2017 COMPARISON: 04/05/2017 HISTORY: Pneumonia TECHNIQUE: Single frontal view of the chest is obtained. FINDINGS: Vague density in the right upper lobe persists. Left lung clear. Heart size stable. No ple ural effusion or pneumothorax. IMPRESSION: 1. Vague airspace disease right upper lobe stable.
[2017-04-06] MEDS: KETOROLAC 30 MG/ML 1 ML VIAL IVP SCH ×2 (09:16→16:20)
[2017-04-06 09:28] VITALS: TEMP 98.2
--- NOTE | 2017-04-06 10:21 | P.PN ---
Progress Note - Text Hospitalist interval note: Patient seen and examined at bedside. She is still having chest pain but the medications are controlling it. She states that her shortness of breath is better. Her cough is still unchanged. We discussed at length the fact that she will have some chest pain for the next couple of weeks as her lung heals from pneumonia and the aspirate foreign-body. She is aware of this. Plan will be to discharge the patient pending psych review today. Formal discharge summary to follow.
[2017-04-06] MEDS: HYDROcodone/APAP 5-325MG 1 EACH TAB PO PRN (11:31)
[2017-04-06 11:38] VITALS: BP 101/63; PULSE 68
[2017-04-06] MEDS ORDERED: LEVOFLOXACIN 750 MG TAB PO SCH (14:00)
--- NOTE | 2017-04-06 16:07 | P.PN ---
Progress Note - Text PSYCHIATRY CONSULT: Patient seen and interviewed at bedside, spoke with staff, and spoke with patient's mother Jonelle: A/P Schizophrenia, stimulant use disorder, cocaine type 1. Discharge home to mom, patient does not meet criteria for involuntary psychiatric hospitalization at this time 2. Make sure patient's discharge paperwork CLEARLY HIGHLIGHTS to reflect that she received Prolixin Deconate 50-mg IM on 04/05/2017 in the left deltoid so that her outpatient providers can appropriately schedule follow up injections and avoid medical error. 3. Formal consult documentation will follow ~ Kaveh Tejeda DO
--- NOTE | 2017-04-06 17:04 | P.DS ---
Providers Date of admission: 04/05/17 15:25 Expected date of discharge: 04/06/17 Attending physician: Cathy Jackson DO Consults: 04/05/17 15:24 Consult Physician Stat Consulting Provider: Kaveh Tejeda Consult Reason/Comments: Schizophrenia, noncompliance Do you want consulting provider notified?: Yes Primary care physician: Lauren Denson - Discharge Diagnosis(es) (1) Pleuritic chest pain Current Visit: Yes Status: Acute (2) Pneumonia Current Visit: Yes Status: Acute (3) Aspiration of foreign body Current Visit: No Status: Acute (4) Polysubstance abuse Current Visit: No Status: Acute (5) Schizophrenia Current Visit: No Status: Acute Priority: High Hospital Course: Patient is a 22-year-old female with a past medical history of cocaine abuse, asthma, GERD, and schizophrenia who presented to the emergency department with complaints of right sided pleuritic chest pain. She had been here on April 03 and was diagnosed with pneumonia and a foreign body aspiration. She underwent bronch with removal of her foreign body on April 03. She was doing better on April 04 and was subsequently discharged home. Patient states that she went home and took 1 dose of her antibiotic and 1 dose of Motrin. She states the Motrin did not help and she continued to have right-sided chest pain so she came back to the hospital. In the ER she appeared slightly dehydrated and therefore admission for observation and psychiatric evaluation was requested. She was admitted to the observation unit. She was given IV fluids overnight. She was maintained on her Levaquin and clindamycin from home. Psychiatry felt that she did not requirements for involuntary psychiatric hospitalization. Her mother agreed to take her home with her. She was medically stable therefore was discharged home. She was tenuously given a prescription for [place] 15 pills due to her chest pain. We had initially tried to avoid this with her history of cocaine abuse however the pain was too severe to be treated with nonnarcotics such as Motrin and Tylenol. It was discussed with her that she will have some shortness of breath and chest pain for the next few weeks if she continues to recover from her inhaled foreign body and pneumonia. Patient seen and examined at bedside. Chest pain better controlled, shortness of breath improved, still with cough, wheezing improved. Vital signs reviewed and stable. General: non toxic, no distress, appears at stated age Derm: no rashes, no lesions Head: atraumatic, normocephalic, symmetric Eyes: EOMI, no lid lag, anicteric sclera ENT: no post nasal drip, no thrush Mouth: no lip lesion, mucus membranes moist Cardiovascular: S1S2 reg, no murmur, positive posterior tibial pulse bilateral, Lungs: Rhonchi right base , no accessory muscle use Abdominal: soft, nontender to palpation, no guarding, no appreciable organomegaly Ext: no gross muscle atrophy, no edema, no contractures Neuro: CN II-XI grossly intact, no focal neuro deficits Psych: Alert, oriented, flat affect A total of 25 minutes of time were spent preparing this complex discharge summary . Pertinent Studies: None Procedures: None Patient Condition at Discharge: Good Plan - Discharge Summary New Discharge Prescriptions: New guaiFENesin [Mucinex] 600 mg PO Q12HR #60 tab HYDROcodone/APAP 5-325MG [[place] 5-325] 1 each PO Q4HR PRN #15 tab PRN Reason: Pain predniSONE 40 mg PO DAILY #10 tab Continue fluPHENAZine DECANOATE [Prolixin Decanoate] 50 mg IM [id number] Clindamycin HCl 600 mg PO Q8HR #60 cap Ibuprofen [Motrin] 600 mg PO Q8HR PRN #30 tab PRN Reason: Pain Levofloxacin [Levaquin] 750 mg PO DAILY #10 tab Budesonide [Pulmicort Flexhaler] 2 puff INHALATION RT-BID Nicotine Polacrilex [Nicotine Gum] 4 mg BUCCAL DIRECTED Medroxyprogesterone Acetate [Depo-Provera] 150 mg IM Q84D Lactobacillus Acidoph & Bulgar [Lactinex] 1 packet PO BID Discharge Medication List fluPHENAZine DECANOATE [Prolixin Decanoate] 50 mg IM [id number] 04/03/17 [History] Clindamycin HCl 600 mg PO Q8HR #60 cap 04/04/17 [Rx] Ibuprofen [Motrin] 600 mg PO Q8HR PRN #30 tab 04/04/17 [Rx] Levofloxacin [Levaquin] 750 mg PO DAILY #10 tab 04/04/17 [Rx] Budesonide [Pulmicort Flexhaler] 2 puff INHALATION RT-BID 04/05/17 [History] Lactobacillus Acidoph & Bulgar [Lactinex] 1 packet PO BID 04/05/17 [History] Medroxyprogesterone Acetate [Depo-Provera] 150 mg IM Q84D 04/05/17 [History] Nicotine Polacrilex [Nicotine Gum] 4 mg BUCCAL DIRECTED 04/05/17 [History] HYDROcodone/APAP 5-325MG [[place] 5-325] 1 each PO Q4HR PRN #15 tab 04/06/17 [Rx] guaiFENesin [Mucinex] 600 mg PO Q12HR #60 tab 04/06/17 [Rx] predniSONE 40 mg PO DAILY #10 tab 04/06/17 [Rx] Follow up Appointment(s)/Referral(s): Lauren Denson MD [Primary Care Provider] - 1-2 days Patient Instructions/Handouts: Pneumonia (GEN) Activity/Diet/Wound Care/Special Instructions: Regular diet, activity as tolerated. Home to care of mother. Had Prolix 50mg IM to left Deltoid on 04/05/2017 Abstain from illicit substances Discharge Disposition: HOME SELF-CARE
[2017-04-19] MEDS ORDERED: fluPHENAZine DECANOATE 25 MG/ML 5ML MDV IM SCH (09:00)
== END 2017-04-06 17:02 | disposition home or self-care (01) ==
LOC: EC 12:22 → 3OBS 15:25
PROVIDERS: ADMIT Internal Medicine; ATTEND Internal Medicine
DX: R07.81 Pleurodynia (principal); J18.9 Pneumonia, unspecified organism; T17.990A Other foreign object in respiratory tract, part unspecified in causing asphyxiation, initial encounter; F20.9 Schizophrenia, unspecified; F14.10 Cocaine abuse, uncomplicated; K21.9 Gastro-esophageal reflux disease without esophagitis; F19.10 Other psychoactive substance abuse, uncomplicated; E66.9 Obesity, unspecified; Z68.33 Body mass index [BMI] 33.0-33.9, adult; K58.9 Irritable bowel syndrome, unspecified; I95.9 Hypotension, unspecified; F31.9 Bipolar disorder, unspecified; F43.10 Post-traumatic stress disorder, unspecified; M62.82 Rhabdomyolysis; F41.0 Panic disorder [episodic paroxysmal anxiety]; R74.8 Abnormal levels of other serum enzymes; J45.21 Mild intermittent asthma with (acute) exacerbation; Z88.0 Allergy status to penicillin; Z88.2 Allergy status to sulfonamides; Z88.8 Allergy status to other drugs, medicaments and biological substances; F17.200 Nicotine dependence, unspecified, uncomplicated; Z79.899 Other long term (current) drug therapy; Z79.51 Long term (current) use of inhaled steroids; Z79.3 Long term (current) use of hormonal contraceptives; Z91.19 Patient's noncompliance with other medical treatment and regimen
CPT/HCPCS: 99285; 96365; 96375 ×3; 96376 ×4; 96361 ×4; 96372; 82075; 36415; 94640; 93005; 85379; 80053; 82550; 82553; 84484; 85025; 85610; 85730; 81001; 81025; 71010; 71020; 71275; G0378 ×2; J2680; J2765; Q9967; J2405; J1885 ×2; J2270; J1170; J1956; J7512 ×2

== ENCOUNTER 2017-04-07 04:11 | Emergency (ER) | payer OTHER ==
[2017-04-07 04:25] VITALS: BP 109/59; PULSE 61; RESP 16; TEMP 98.7
[2017-04-07] MEDS ORDERED: HYDROmorphone 2 MG/ML 1 ML SYRINGE IM STA (04:43)
--- NOTE | 2017-04-07 04:43 | ED ---
General Adult HPI - General Chief complaint: Chest Pain Stated complaint: Chest Pain Time Seen by Provider: 04/07/17 04:18 Source: patient, EMS, RN notes reviewed, old records reviewed Mode of arrival: EMS Limitations: no limitations - History of Present Illness Initial comments: This is a 22-year-old female here for evaluation of pain. Body pain chest pain. Cough and congestion. Multiple recent diagnosis of shortness of breath chest pain pneumonia postobstructive pneumonia recent long foreign body which is removed. Patient is in no distress denies shortness of breath is complaining of pain. Patient taking [place] for pain for almost mild help - Related Data Home Medications Medication Instructions Recorded Confirmed fluPHENAZine DECANOATE [Prolixin 50 mg IM [id number] 04/03/17 04/05/17 Decanoate] Budesonide [Pulmicort Flexhaler] 2 puff INHALATION RT-BID 04/05/17 04/05/17 Lactobacillus Acidoph & Bulgar 1 packet PO BID 04/05/17 04/05/17 [Lactinex] Medroxyprogesterone Acetate 150 mg IM Q84D 04/05/17 04/05/17 [Depo-Provera] Nicotine Polacrilex [Nicotine Gum] 4 mg BUCCAL DIRECTED 04/05/17 04/05/17 Previous Rx's Medication Instructions Recorded Clindamycin HCl 600 mg PO Q8HR #60 cap 04/04/17 Ibuprofen [Motrin] 600 mg PO Q8HR PRN #30 tab 04/04/17 Levofloxacin [Levaquin] 750 mg PO DAILY #10 tab 04/04/17 HYDROcodone/APAP 5-325MG [[place] 1 each PO Q4HR PRN #15 tab 04/06/17 5-325] guaiFENesin [Mucinex] 600 mg PO Q12HR #60 tab 04/06/17 predniSONE 40 mg PO DAILY #10 tab 04/06/17 Allergies Allergy/AdvReac Type Severity Reaction Status Date / Time Penicillins Allergy Severe Anaphylaxis Verified 04/05/17 13:29 Sulfa (Sulfonamide Allergy Severe Anaphylaxis Verified 04/05/17 13:29 Antibiotics) diphenhydramine HCl Allergy Rash/Hives Verified 04/05/17 13:29 [From Benadryl] Review of Systems ROS Statement: Those systems with pertinent positive or pertinent negative responses have been documented in the HPI. ROS Other: All systems not noted in ROS Statement are negative. 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 Past Anesthesia/Blood Transfusion Reactions: No Reported Reaction Additional Past Anesthesia/Blood Transfusion Reaction / Comment(s): Patient does not believe she has had a reaction to anesthesia. Past Psychological History: Anxiety, Panic Disorder, PTSD, Schizophrenia Smoking Status: Current every day smoker Past Alcohol Use History: None Reported Past Drug Use History: None Reported - Past Family History Mother Family Medical History: Asthma, Fibromyalgia Father Family Medical History: No Reported History Additional Family Medical History / Comment(s): bipolar, sever seasonal allergies Brother(s) Family Medical History: No Reported History Sister(s) Family Medical History: No Reported History General Exam Limitations: no limitations General appearance: alert, in no apparent distress Head exam: Present: atraumatic, normocephalic, normal inspection Eye exam: Present: normal appearance, PERRL, EOMI. Absent: scleral icterus, conjunctival injection, periorbital swelling ENT exam: Present: normal exam, mucous membranes moist Neck exam: Present: normal inspection. Absent: tenderness, meningismus, lymphadenopathy Respiratory exam: Present: normal lung sounds bilaterally. Absent: respiratory distress, wheezes, rales, rhonchi, stridor Cardiovascular Exam: Present: regular rate, normal rhythm, normal heart sounds. Absent: systolic murmur, diastolic murmur, rubs, gallop, clicks GI/Abdominal exam: Present: soft, normal bowel sounds. Absent: distended, tenderness, guarding, rebound, rigid Extremities exam: Present: normal inspection, full ROM, normal capillary refill. Absent: tenderness, pedal edema, joint swelling, calf tenderness Back exam: Present: normal inspection Neurological exam: Present: alert, oriented X3, CN II-XII intact Psychiatric exam: Present: normal affect, normal mood Skin exam: Present: warm, dry, intact, normal color. Absent: rash Course Vital Signs 04/07/17 04/07/17 04:18 04:25 Temperature 98.7 F Pulse Rate 61 Respiratory 16 16 Rate Blood Pressure 109/59 O2 Sat by Pulse 96 Oximetry - Reevaluation(s) Reevaluation #1: Medical records thoroughly reviewed Medical Decision Making - Medical Decision Making 22 female ER for evaluation. Patient was a chest pain by pain. History of multiple admissions for similar things, patient given pain control, feels better at the time, we'll discharge home Disposition Clinical Impression: Atypical chest pain Disposition: HOME SELF-CARE Condition: Good Instructions: Chest Pain (ED) Referrals: Lauren Denson MD [Primary Care Provider] - 1-2 days
== END 2017-04-07 04:50 | disposition home or self-care (01) ==
LOC: EC 04:11
DX: R07.89 Other chest pain (principal); R05 Cough; R09.89 Other specified symptoms and signs involving the circulatory and respiratory systems; J45.909 Unspecified asthma, uncomplicated; E66.9 Obesity, unspecified; F20.9 Schizophrenia, unspecified; F17.200 Nicotine dependence, unspecified, uncomplicated; Z79.51 Long term (current) use of inhaled steroids; Z79.899 Other long term (current) drug therapy; Z88.0 Allergy status to penicillin; Z88.2 Allergy status to sulfonamides; Z88.8 Allergy status to other drugs, medicaments and biological substances
CPT/HCPCS: 99285; 96372; J1170

== ENCOUNTER 2017-04-15 17:48 | Emergency (ER) | payer MEDICAID, OTHER ==
--- NOTE | 2017-04-15 18:13 | ED ---
Psych HPI - General Chief Complaint: Psychiatric Symptoms Stated Complaint: Suicidal Time Seen by Provider: 04/15/17 17:50 Source: patient Mode of arrival: EMS - History of Present Illness Initial Comments: 23-year-old female with past medical history of post medic stress disorder, anxiety/panic disorder, mood disorder, schizophrenia, and polysubstance abuse presented for evaluation of suicidal ideations. She states that she had similar symptoms 2 weeks ago but did not come to the ED or formerly [facility] for evaluation. She states that she has a plan of the ring herself off the bridge. She states that she is supposed to be receiving Prolixin IM every 2 weeks but isn't sure when she last had her shot. Her last admission for psych was in January at [facility]. She denies consuming alcohol or taking medications (ilicit or prescription) to hurt herself. - Related Data Home Medications Medication Instructions Recorded Confirmed fluPHENAZine DECANOATE [Prolixin 50 mg IM [id number] 04/03/17 04/15/17 Decanoate] Budesonide [Pulmicort Flexhaler] 2 puff INHALATION RT-BID 04/05/17 04/15/17 Medroxyprogesterone Acetate 150 mg IM Q90D 04/05/17 04/15/17 [Depo-Provera] Allergies Allergy/AdvReac Type Severity Reaction Status Date / Time Penicillins Allergy Severe Anaphylaxis Verified 04/15/17 18:36 Sulfa (Sulfonamide Allergy Severe Anaphylaxis Verified 04/15/17 18:36 Antibiotics) diphenhydramine HCl Allergy Rash/Hives Verified 04/15/17 18:36 [From Benadryl] Review of Systems ROS Statement: Those systems with pertinent positive or pertinent negative responses have been documented in the HPI. ROS Other: All systems not noted in ROS Statement are negative. Constitutional: Denies: fever, chills Eyes: Denies: eye pain, eye discharge ENT: Denies: ear pain, throat pain Respiratory: Denies: cough, dyspnea Cardiovascular: Denies: chest pain, palpitations Endocrine: Denies: fatigue, heat or cold intolerance Gastrointestinal: Denies: abdominal pain, nausea, vomiting Genitourinary: Denies: urgency, dysuria Musculoskeletal: Denies: back pain, joint swelling Skin: Denies: rash, lesions Neurological: Denies: headache, weakness Psychiatric: Reports: depression, suicidal thoughts. 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 Past Anesthesia/Blood Transfusion Reactions: No Reported Reaction Additional Past Anesthesia/Blood Transfusion Reaction / Comment(s): Patient does not believe she has had a reaction to anesthesia. Past Psychological History: Anxiety, Panic Disorder, PTSD, Schizophrenia Smoking Status: Current every day smoker Past Alcohol Use History: None Reported Past Drug Use History: None Reported - Past Family History Mother Family Medical History: Asthma, Fibromyalgia Father Family Medical History: No Reported History Additional Family Medical History / Comment(s): bipolar, sever seasonal allergies Brother(s) Family Medical History: No Reported History Sister(s) Family Medical History: No Reported History General Exam Limitations: no limitations General appearance: alert, in no apparent distress Head exam: Present: atraumatic, normocephalic, normal inspection Eye exam: Present: normal appearance, PERRL, EOMI. Absent: scleral icterus, conjunctival injection, periorbital swelling ENT exam: Present: normal exam, mucous membranes moist Neck exam: Present: normal inspection. Absent: tenderness, meningismus, lymphadenopathy Respiratory exam: Present: normal lung sounds bilaterally. Absent: respiratory distress, wheezes, rales, rhonchi, stridor Cardiovascular Exam: Present: regular rate, normal rhythm, normal heart sounds. Absent: systolic murmur, diastolic murmur, rubs, gallop, clicks GI/Abdominal exam: Present: soft, normal bowel sounds. Absent: distended, tenderness, guarding, rebound, rigid Rectal exam: Present: deferred Extremities exam: Present: normal inspection, full ROM, normal capillary refill. Absent: tenderness, pedal edema, joint swelling, calf tenderness Back exam: Present: normal inspection Neurological exam: Present: alert, oriented X3, CN II-XII intact Psychiatric exam: Present: flat affect, suicidal ideation. Absent: agitated, homicidal ideation Skin exam: Present: warm, dry, intact, normal color. Absent: rash Course Vital Signs 04/15/17 04/15/17 17:57 22:03 Temperature 98.0 F 98.6 F Pulse Rate 79 78 Respiratory 18 12 Rate Blood Pressure 103/57 92/52 O2 Sat by Pulse 99 96 Oximetry Medical Decision Making - Medical Decision Making 22-year-old female with multiple psychiatric elements presented for evaluation of suicidal ideations. She states that she has plan of jumping off the bridge into the water. She denies taking any alcohol or medications, prescription or illicit, with the intent of hurting herself. She is supposed to be taking Prolixin injections every 2 weeks however she is unsure when her last injection was. Last admission for inpatient psych was in January to [facility]. On physical examination she has a flat affect however she is cooperative with exam and questioning. We'll obtain behavioral health clearance labs and then have her evaluated by psych. Labs were significant for a UDS positive for amphetamines, methamphetamines, cocaine, and marijuana. The remainder of her labs revealed no significant abnormalities. Chest x-ray showed no acute process. The patient was cleared for I evaluation and after seeing her they determined that she was stable for discharge home. They stated that during questioning of the patient she stated that she wasn't really suicidal and that she just wanted a place to stay for the moment to clear her head. He further stated that a [facility] worker would come out to her house tomorrow to check up on her. The patient was informed of these results and this plan and agreed. She was given discharge instructions and advised to follow-up with her primary care physician and to expect a visit from [facility] tomorrow. She is further advised to return to this facility if her symptoms should worsen or persist. The patient acknowledged an understanding of this information and agreed with this plan of care. At this time she states she is not suicidal and is having no depressive thoughts of hurting herself. - Lab Data Result diagrams: 04/15/17 18:06 04/15/17 18:06 Lab Results 04/15/17 04/15/17 04/15/17 Range/Units 18:06 18:06 18:06 WBC 8.8 (3.8-10.6) k/uL RBC 4.69 (3.80-5.40) m/uL Hgb 12.7 (11.4-16.0) gm/dL Hct 39.8 (34.0-46.0) % MCV 84.8 (80.0-100.0) fL MCH 27.1 (25.0-35.0) pg MCHC 32.0 (31.0-37.0) g/dL RDW 16.1 H (11.5-15.5) % Plt Count 239 (150-450) k/uL Neutrophils % 67 % Lymphocytes % 26 % Monocytes % 4 % Eosinophils % 2 % Basophils % 0 % Neutrophils # 5.9 (1.3-7.7) k/uL Lymphocytes # 2.3 (1.0-4.8) k/uL Monocytes # 0.3 (0-1.0) k/uL Eosinophils # 0.1 (0-0.7) k/uL Basophils # 0.0 (0-0.2) k/uL Anisocytosis Slight Sodium 138 (137-145) mmol/L Potassium 4.0 (3.5-5.1) mmol/L Chloride 110 H (98-107) mmol/L Carbon Dioxide 17 L (22-30) mmol/L Anion Gap 11 mmol/L BUN 7 (7-17) mg/dL Creatinine 0.77 (0.52-1.04) mg/dL Est GFR (MDRD) Af Amer >60 (>60 ml/min/1.73 sqM) Est GFR (MDRD) Non-Af >60 (>60 ml/min/1.73 sqM) Glucose 104 H (74-99) mg/dL Calcium 9.5 (8.4-10.2) mg/dL Urine HCG, Qual (Not Detectd) Salicylates <1.0 mg/dL Urine Opiates Screen Not Detected (NotDetected) Ur Oxycodone Screen Not Detected (NotDetected) Urine Methadone Screen Not Detected (NotDetected) Ur Propoxyphene Screen Not Detected (NotDetected) Acetaminophen <10.0 ug/mL Ur Barbiturates Screen Not Detected (NotDetected) U Tricyclic Antidepress Not Detected (NotDetected) Ur Phencyclidine Scrn Not Detected (NotDetected) Ur Amphetamines Screen Detected H (NotDetected) U Methamphetamines Scrn Detected H (NotDetected) U Benzodiazepines Scrn Not Detected (NotDetected) Urine Cocaine Screen Detected H (NotDetected) U Marijuana (THC) Screen Detected H (NotDetected) 04/15/17 Range/Units 18:06 WBC (3.8-10.6) k/uL RBC (3.80-5.40) m/uL Hgb (11.4-16.0) gm/dL Hct (34.0-46.0) % MCV (80.0-100.0) fL MCH (25.0-35.0) pg MCHC (31.0-37.0) g/dL RDW (11.5-15.5) % Plt Count (150-450) k/uL Neutrophils % % Lymphocytes % % Monocytes % % Eosinophils % % Basophils % % Neutrophils # (1.3-7.7) k/uL Lymphocytes # (1.0-4.8) k/uL Monocytes # (0-1.0) k/uL Eosinophils # (0-0.7) k/uL Basophils # (0-0.2) k/uL Anisocytosis Sodium (137-145) mmol/L Potassium (3.5-5.1) mmol/L Chloride (98-107) mmol/L Carbon Dioxide (22-30) mmol/L Anion Gap mmol/L BUN (7-17) mg/dL Creatinine (0.52-1.04) mg/dL Est GFR (MDRD) Af Amer (>60 ml/min/1.73 sqM) Est GFR (MDRD) Non-Af (>60 ml/min/1.73 sqM) Glucose (74-99) mg/dL Calcium (8.4-10.2) mg/dL Urine HCG, Qual Not Detected (Not Detectd) Salicylates mg/dL Urine Opiates Screen (NotDetected) Ur Oxycodone Screen (NotDetected) Urine Methadone Screen (NotDetected) Ur Propoxyphene Screen (NotDetected) Acetaminophen ug/mL Ur Barbiturates Screen (NotDetected) U Tricyclic Antidepress (NotDetected) Ur Phencyclidine Scrn (NotDetected) Ur Amphetamines Screen (NotDetected) U Methamphetamines Scrn (NotDetected) U Benzodiazepines Scrn (NotDetected) Urine Cocaine Screen (NotDetected) U Marijuana (THC) Screen (NotDetected) Disposition Clinical Impression: Psychosis Disposition: HOME SELF-CARE Condition: Stable Instructions: Brief Psychotic Disorder (ED), Suicide Prevention for Adults (ED) Additional Instructions: Please follow up with her primary care physician within the next week. Our mental health team will also be following up with you tomorrow. She is to develop worsening or continued symptoms return to the ED immediately. Referrals: Lauren Denson MD [Primary Care Provider] - 1-2 days Time of Disposition: 22:10
[2017-04-15] MEDS ORDERED: IBUPROFEN 800 MG TAB PO STA (18:27)
[2017-04-15 18:32] LABS: Anisocytosis Slight; Basophils % (A) 0 %; CH 28.3; CHCM 33.6; Eosinophils # (A) 0.1 k/uL (0-0.7); Eosinophils % (A) 2 %; HCT 39.8 % (34.0-46.0); HDW 2.66; HGB 12.7 gm/dL (11.4-16.0); Luc # (Auto) 0.12; Luc % (Auto) 1; Lymphocytes # (A) 2.3 k/uL (1.0-4.8); Lymphocytes % (A) 26 %; MCH 27.1 pg (25.0-35.0); MCV 84.8 fL (80.0-100.0); Mean Platelet Volume 9.2; Monocytes # (A) 0.3 k/uL (0-1.0); Monocytes % (A) 4 %; Neutrophils # (A) 5.9 k/uL (1.3-7.7); Neutrophils % (A) 67 %; RBC 4.69 m/uL (3.80-5.40); RDW 16.1 % (11.5-15.5); WBC 8.8 k/uL (3.8-10.6); WBC (Perox) 9.08
[2017-04-15 18:38] LABS: Acetaminophen <10.0 ug/mL; Anion Gap 11 mmol/L; Blood Urea Nitrogen 7 mg/dL (7-17); Calcium 9.5 mg/dL (8.4-10.2); Carbon Dioxide 17 mmol/L (22-30); Chloride 110 mmol/L (98-107); Glucose 104 mg/dL (74-99); Non-African American GFR(MDRD) >60 (>60 ml/min/1.73 sqM); Salicylate <1.0 mg/dL; Sodium 138 mmol/L (137-145)
--- NOTE | 2017-04-15 19:09 | XR ---
EXAMINATION TYPE: XR chest 2V DATE OF EXAM: 04/15/2017 COMPARISON: 04/06/2017 HISTORY: Short of breath TECHNIQUE: Frontal and lateral views of the chest are obtained. FINDINGS: Heart and mediastinum are normal. Lungs are clear. Diaphragm is normal. Bony thorax appear s normal. IMPRESSION: Normal chest. No change.
[2017-04-15 22:04] VITALS: BP 92/52; PULSE 78; RESP 12; TEMP 98.6
== END 2017-04-15 22:15 | disposition home or self-care (01) ==
LOC: EC 17:48
DX: F20.9 Schizophrenia, unspecified (principal); F43.10 Post-traumatic stress disorder, unspecified; F41.0 Panic disorder [episodic paroxysmal anxiety]; J45.909 Unspecified asthma, uncomplicated; Z79.899 Other long term (current) drug therapy; Z88.0 Allergy status to penicillin; Z88.2 Allergy status to sulfonamides; Z88.8 Allergy status to other drugs, medicaments and biological substances; Z81.8 Family history of other mental and behavioral disorders
CPT/HCPCS: 36415; 71020; 80048; 80306; 81025; 82075; 83520; 85025; 99284

== ENCOUNTER 2017-05-03 04:25 | Emergency (ER) | payer OTHER ==
[2017-05-03 04:32] VITALS: BP 116/66; PULSE 85; RESP 18; TEMP 98.6
[2017-05-03] MEDS ORDERED: HYDROcodone/APAP 5-325MG 1 EACH TAB PO STA (04:46)
[2017-05-03] MEDS ORDERED: PROCHLORPERAZINE 5 MG TAB PO STA (04:46)
[2017-05-03] MEDS ORDERED: hydrOXYzine HCL 25 MG TAB PO STA (04:46)
[2017-05-03] MEDS ORDERED: KETOROLAC 60 MG/2 ML VIAL IM STA (04:46)
--- NOTE | 2017-05-03 04:47 | ED ---
General Adult HPI - General Chief complaint: Headache Stated complaint: migraine Time Seen by Provider: 05/03/17 04:33 Source: EMS, RN notes reviewed, old records reviewed Mode of arrival: EMS Limitations: no limitations - History of Present Illness Initial comments: This is a 22-year-old female to the ER for evaluation of headache. Patient has history of headache. Patient has history of migraine headache. Patient does have consistent ER visits for this. Patient also has issues with psychiatric disease. A lot of this time denies drug or alcohol, denies nausea or vomiting, denies fever, denies trauma. Denies any change of recent medications denies any drug or alcohol abuse and denies homicidal or suicidal thoughts - Related Data Home Medications Medication Instructions Recorded Confirmed fluPHENAZine DECANOATE [Prolixin 50 mg IM [id number] 04/03/17 04/15/17 Decanoate] Budesonide [Pulmicort Flexhaler] 2 puff INHALATION RT-BID 04/05/17 04/15/17 Medroxyprogesterone Acetate 150 mg IM Q90D 04/05/17 04/15/17 [Depo-Provera] Allergies Allergy/AdvReac Type Severity Reaction Status Date / Time Penicillins Allergy Severe Anaphylaxis Verified 04/15/17 18:36 Sulfa (Sulfonamide Allergy Severe Anaphylaxis Verified 04/15/17 18:36 Antibiotics) diphenhydramine HCl Allergy Rash/Hives Verified 04/15/17 18:36 [From Benadryl] Review of Systems ROS Statement: Those systems with pertinent positive or pertinent negative responses have been documented in the HPI. ROS Other: All systems not noted in ROS Statement are negative. 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 Past Anesthesia/Blood Transfusion Reactions: No Reported Reaction Additional Past Anesthesia/Blood Transfusion Reaction / Comment(s): Patient does not believe she has had a reaction to anesthesia. Past Psychological History: Anxiety, Panic Disorder, PTSD, Schizophrenia Smoking Status: Current every day smoker Past Alcohol Use History: None Reported Past Drug Use History: None Reported - Past Family History Mother Family Medical History: No Reported History Father Family Medical History: No Reported History Additional Family Medical History / Comment(s): bipolar, sever seasonal allergies Brother(s) Family Medical History: No Reported History Sister(s) Family Medical History: No Reported History General Exam Limitations: no limitations General appearance: alert, in no apparent distress Head exam: Present: atraumatic, normocephalic, normal inspection Eye exam: Present: normal appearance, PERRL, EOMI. Absent: scleral icterus, conjunctival injection, periorbital swelling ENT exam: Present: normal exam, mucous membranes moist Neck exam: Present: normal inspection. Absent: tenderness, meningismus, lymphadenopathy Respiratory exam: Present: normal lung sounds bilaterally. Absent: respiratory distress, wheezes, rales, rhonchi, stridor Cardiovascular Exam: Present: regular rate, normal rhythm, normal heart sounds. Absent: systolic murmur, diastolic murmur, rubs, gallop, clicks GI/Abdominal exam: Present: soft, normal bowel sounds. Absent: distended, tenderness, guarding, rebound, rigid Extremities exam: Present: normal inspection, full ROM, normal capillary refill. Absent: tenderness, pedal edema, joint swelling, calf tenderness Back exam: Present: normal inspection Neurological exam: Present: alert, oriented X3, CN II-XII intact Psychiatric exam: Present: normal affect, normal mood Skin exam: Present: warm, dry, intact, normal color. Absent: rash Course Vital Signs 05/03/17 04:29 Temperature 98.6 F Pulse Rate 85 Respiratory 18 Rate Blood Pressure 116/66 O2 Sat by Pulse 96 Oximetry - Reevaluation(s) Reevaluation #1: Patient at this time headache is improving, not homicidal or suicidal Medical Decision Making - Medical Decision Making 22 female at ER for evaluation of headache. Patient states this is an acute on chronic headache. At this time patient states her headache is resolved. Patient can be discharged home Disposition Clinical Impression: Psychosis, Migraine Disposition: HOME SELF-CARE Condition: Good Instructions: Acute Headache (ED) Referrals: Lauren Denson MD [Primary Care Provider] - 1-2 days
--- NOTE | 2017-05-04 02:50 | CDI ---
Documentation Clarification OP Dear Doug Ruiz Please do addendum to ED report for missing Physical examination. Thank you, Jon Hermosillo Rn X Ray If you have any questions, please contact [employer] Operator at [phone] [facility]
== END 2017-05-03 05:21 | disposition home or self-care (01) ==
LOC: EC 04:25
DX: G43.909 Migraine, unspecified, not intractable, without status migrainosus (principal); F29 Unspecified psychosis not due to a substance or known physiological condition; J45.909 Unspecified asthma, uncomplicated; E66.9 Obesity, unspecified; Z68.27 Body mass index [BMI] 27.0-27.9, adult; F41.9 Anxiety disorder, unspecified; F43.10 Post-traumatic stress disorder, unspecified; F20.9 Schizophrenia, unspecified; F17.200 Nicotine dependence, unspecified, uncomplicated; Z79.899 Other long term (current) drug therapy; Z88.0 Allergy status to penicillin; Z88.2 Allergy status to sulfonamides; Z88.8 Allergy status to other drugs, medicaments and biological substances
CPT/HCPCS: 96372; 99284; S0183; J1885

== ENCOUNTER 2017-06-20 16:32 | Emergency (ER) | payer OTHER ==
--- NOTE | 2017-06-20 17:27 | ED ---
General Adult HPI - General Chief complaint: Psychiatric Symptoms Stated complaint: Petition Time Seen by Provider: 06/20/17 17:15 Source: patient, police, RN notes reviewed Mode of arrival: ambulatory Limitations: no limitations - History of Present Illness Initial comments: patient 22-year-old female who presents emergency room today in police custody for a evaluation order. Patient states that she was petitioned due to [facility]. States she was picked up her today. States that she did not like it there. Patient denies any homicidal or suicidal thoughts or plans. Denies any other physical complaints. Patient denies any recent fever, chills, shortness of breath, chest pain, back pain, abdominal pain, nausea or vomiting, numbness or tingling, dysuria or hematuria, constipation or diarrhea, headaches or visual changes, or any other complaints. - Related Data Home Medications Medication Instructions Recorded Confirmed fluPHENAZine DECANOATE [Prolixin 50 mg IM [id number] 04/03/17 06/20/17 Decanoate] Budesonide [Pulmicort Flexhaler] 2 puff INHALATION RT-BID 04/05/17 06/20/17 Medroxyprogesterone Acetate 150 mg IM Q90D 04/05/17 06/20/17 [Depo-Provera] Albuterol Nebulized [Ventolin 2.5 mg INHALATION RT-Q6H PRN 06/15/17 06/20/17 Nebulized] Previous Rx's Medication Instructions Recorded Benztropine Mesylate [Cogentin] 1 mg PO BID #60 tab 06/19/17 Divalproex ER [Depakote ER] 250 mg PO DAILY #30 tab.er.24h 06/19/17 Divalproex ER [Depakote ER] 500 mg PO HS #30 tab.er.24h 06/19/17 Doxepin [SINEquan] 50 mg PO HS #60 cap 06/19/17 Nicotine 21Mg/24Hr Patch [Habitrol] 1 patch TRANSDERM DAILY #12 patch 06/19/17 Sertraline [Zoloft] 50 mg PO DAILY #30 tab 06/19/17 fluPHENAZine [Prolixin 5MG] 10 mg PO BID #60 tablet 06/19/17 Allergies Allergy/AdvReac Type Severity Reaction Status Date / Time Penicillins Allergy Severe Anaphylaxis Verified 06/20/17 17:50 Sulfa (Sulfonamide Allergy Severe Anaphylaxis Verified 06/20/17 17:50 Antibiotics) diphenhydramine HCl Allergy Rash/Hives Verified 06/20/17 17:50 [From Benadryl] Review of Systems ROS Statement: Those systems with pertinent positive or pertinent negative responses have been documented in the HPI. ROS Other: All systems not noted in ROS Statement are negative. 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 Past Anesthesia/Blood Transfusion Reactions: No Reported Reaction Additional Past Anesthesia/Blood Transfusion Reaction / Comment(s): Patient does not believe she has had a reaction to anesthesia. Past Psychological History: Anxiety, Panic Disorder, PTSD, Schizophrenia Smoking Status: Current every day smoker Past Alcohol Use History: None Reported Past Drug Use History: None Reported - Past Family History Mother Family Medical History: No Reported History Father Family Medical History: No Reported History Additional Family Medical History / Comment(s): bipolar, sever seasonal allergies Brother(s) Family Medical History: No Reported History Sister(s) Family Medical History: No Reported History General Exam - General Exam Comments Initial Comments: General: The patient is awake and alert, in no distress, and does not appear acutely ill. Eye: Pupils are equal, round and reactive to light, extra-ocular movements are intact. No nystagmus. There is normal conjunctiva bilaterally. No signs of icterus. Ears, nose, mouth and throat: There are moist mucous membranes and no oral lesions. Neck: The neck is supple, there is no tenderness or JVD. Cardiovascular: There is a regular rate and rhythm. No murmur, rub or gallop is appreciated. Respiratory: Lungs are clear to auscultation, respirations are non-labored, breath sounds are equal. No wheezes, stridor, rales, or rhonchi. Musculoskeletal: Normal ROM, no tenderness. Strength 5/5. Sensation intact. Pulses equal bilaterally 2+. Neurological: A&O x 3. CN II-XII intact, There are no obvious motor or sensory deficits. Coordination appears grossly intact. Speech is normal. Skin: Skin is warm and dry and no rashes or lesions are noted. Psychiatric: Cooperative. Limitations: no limitations Course Vital Signs 06/20/17 16:35 Temperature 99.2 F Pulse Rate 98 Respiratory 18 Rate Blood Pressure 108/55 O2 Sat by Pulse 97 Oximetry - Reevaluation(s) Reevaluation #1: 06/20/17 18:14 patient did complain about a blister to the bottom of her right foot. Doesn't that she was walking a lot yesterday from [facility] to [place]. Patient does have this superficial blister. Has been cleaned and dressed by nursing staff placed some topical antibiotics. currently awaiting recognition from psych services. Medical Decision Making - Medical Decision Making Patient seen here the emergency room by mental health. They recommend the patient can be discharged home. She does see the [facility] team and they will come here to the emergency room to pick her up to take her [facility]. - Lab Data Lab Results 06/20/17 06/20/17 Range/Units 19:00 19:00 Urine HCG, Qual Not Detected (Not Detectd) Urine Opiates Screen Not Detected (NotDetected) Ur Oxycodone Screen Not Detected (NotDetected) Urine Methadone Screen Not Detected (NotDetected) Ur Propoxyphene Screen Not Detected (NotDetected) Ur Barbiturates Screen Not Detected (NotDetected) U Tricyclic Antidepress Not Detected (NotDetected) Ur Phencyclidine Scrn Not Detected (NotDetected) Ur Amphetamines Screen Not Detected (NotDetected) U Methamphetamines Scrn Not Detected (NotDetected) U Benzodiazepines Scrn Detected H (NotDetected) Urine Cocaine Screen Detected H (NotDetected) U Marijuana (THC) Screen Detected H (NotDetected) Disposition Clinical Impression: Schizophrenia Disposition: HOME SELF-CARE Condition: Stable Instructions: Schizophrenia (ED) Additional Instructions: Please follow-up with mental health as discussed here in emergency room. Please return to emergency room for any other concerns. Referrals: Lauren Denson MD [Primary Care Provider] - 1-2 days Time of Disposition: 20:29
[2017-06-20 21:22] VITALS: BP 98/59; PULSE 70; RESP 16; TEMP 97.8
== END 2017-06-20 21:26 | disposition home or self-care (01) ==
LOC: EC 16:32
DX: F20.9 Schizophrenia, unspecified (principal); Z81.8 Family history of other mental and behavioral disorders; J45.909 Unspecified asthma, uncomplicated; E66.9 Obesity, unspecified; F17.200 Nicotine dependence, unspecified, uncomplicated; Z79.3 Long term (current) use of hormonal contraceptives; Z79.51 Long term (current) use of inhaled steroids; Z79.899 Other long term (current) drug therapy; Z88.0 Allergy status to penicillin; Z88.2 Allergy status to sulfonamides; Z88.8 Allergy status to other drugs, medicaments and biological substances; Z68.36 Body mass index [BMI] 36.0-36.9, adult
CPT/HCPCS: 80306; 81025; 82075; 99284

== ENCOUNTER 2017-07-09 12:55 | Emergency (ER) | payer OTHER ==
[2017-07-09] MEDS ORDERED: ONDANSETRON 4 MG/2 ML VIAL IVP STA (13:29)
[2017-07-09] MEDS ORDERED: KETOROLAC 30 MG/ML 1 ML VIAL IVP STA (13:30)
--- NOTE | 2017-07-09 13:36 | ED ---
Chest Pain HPI - General Chief Complaint: Chest Pain Stated Complaint: chest pain Time Seen by Provider: 07/09/17 13:12 Source: patient, EMS Mode of arrival: ambulatory Limitations: no limitations - History of Present Illness Initial Comments: patient is a 22-year-old female presents with chest pain. The patient was evaluated for the same on 07/07/2017 at which time she had a negative evaluation. She returns today for recurrence of her chest pain. She states that it is a sharp ache in the anterior aspect of her chest. She cannot identify any inciting incidences. There are no aggravating or alleviating factors. Patient does admit to nausea, and shortness of breath which she attributes to her asthma. The patient denies any drug use or sick contacts. Past medical history includes schizophrenia. The patient is ALLERGIC to penicillins and sulfa. The patient currently does take the Depo-Provera shot - Related Data Home Medications Medication Instructions Recorded Confirmed Albuterol Nebulized [Ventolin 2.5 mg INHALATION RT-Q6H PRN 06/15/17 07/09/17 Nebulized] Fluphenazine HCl [fluPHENAZine HCL] 10 mg PO BID 07/06/17 07/09/17 fluPHENAZine [Prolixin 5MG] 5 mg PO BID 07/06/17 07/09/17 Previous Rx's Medication Instructions Recorded Benztropine Mesylate [Cogentin] 1 mg PO BID #60 tab 06/19/17 Divalproex ER [Depakote ER] 250 mg PO DAILY #30 tab.er.24h 06/19/17 Divalproex ER [Depakote ER] 500 mg PO HS #30 tab.er.24h 06/19/17 Doxepin [SINEquan] 50 mg PO HS #60 cap 06/19/17 Sertraline [Zoloft] 50 mg PO DAILY #30 tab 06/19/17 Allergies Allergy/AdvReac Type Severity Reaction Status Date / Time Penicillins Allergy Severe Anaphylaxis Verified 07/09/17 13:40 Sulfa (Sulfonamide Allergy Severe Anaphylaxis Verified 07/09/17 13:40 Antibiotics) diphenhydramine HCl Allergy Rash/Hives Verified 07/09/17 13:40 [From Benadryl] Review of Systems ROS Statement: Those systems with pertinent positive or pertinent negative responses have been documented in the HPI. ROS Other: All systems not noted in ROS Statement are negative. Constitutional: Denies: fever, chills Eyes: Denies: vision change ENT: Denies: throat pain Respiratory: Reports: dyspnea. Denies: cough Cardiovascular: Reports: chest pain Gastrointestinal: Reports: nausea. 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 Past Anesthesia/Blood Transfusion Reactions: No Reported Reaction Additional Past Anesthesia/Blood Transfusion Reaction / Comment(s): Patient does not believe she has had a reaction to anesthesia. Past Psychological History: Anxiety, Panic Disorder, PTSD, Schizophrenia Smoking Status: Current every day smoker Past Alcohol Use History: None Reported Past Drug Use History: Marijuana - Past Family History Mother Family Medical History: No Reported History Father Family Medical History: No Reported History Additional Family Medical History / Comment(s): bipolar, sever seasonal allergies Brother(s) Family Medical History: No Reported History Sister(s) Family Medical History: No Reported History General Exam Limitations: no limitations General appearance: alert, in no apparent distress Head exam: Present: atraumatic, normocephalic Eye exam: Present: normal appearance Neck exam: Present: normal inspection Respiratory exam: Present: normal lung sounds bilaterally Cardiovascular Exam: Present: regular rate, normal rhythm GI/Abdominal exam: Present: soft. Absent: distended, tenderness Rectal exam: Present: deferred Extremities exam: Present: normal inspection Back exam: Present: normal inspection Neurological exam: Present: alert, oriented X3, CN II-XII intact, normal gait Psychiatric exam: Present: flat affect Skin exam: Present: warm, dry, intact Course Vital Signs 07/09/17 07/09/17 07/09/17 12:58 13:53 14:44 Temperature 98.2 F 98 F Pulse Rate 88 85 73 Respiratory 18 18 16 Rate Blood Pressure 112/56 115/70 113/78 O2 Sat by Pulse 99 99 98 Oximetry Chest Pain MDM - MDM patient presents with a chief complaint of chest pain. On initial evaluation, vital signs are stable, patient is in no acute distress. The patient is somewhat flat affected, and asked for pain medication. Patient is not per negative secondary to exogenous estrogen use. Patient will have basic labs repeated, chest x-ray repeated, and we'll send a d-dimer to evaluate for PE but patient is otherwise thought to be low risk for PE given stable vital signs. She will be given Toradol for pain, and Zofran for nausea. 2:47 PM EKG performed at 1345 shows normal sinus rhythm with a rate of 82 bpm. Laboratory evaluation this patient is unremarkable. A reevaluation, the patient states she is feeling better and would like to leave. At this time she is safe to do so. She is instructed to follow up with primary care or return to the emergency department if symptoms worsen or change. Disposition Clinical Impression: Chest pain Disposition: HOME SELF-CARE Condition: Good Instructions: Chest Pain (ED), Costochondritis (ED) Referrals: Lauren Denosn MD [Primary Care Provider] - 1-2 days
[2017-07-09 14:05] LABS: Appearance,Urine Clear (Clear); Bilirubin,Urine Negative (Negative); Glucose,Urine (UA) Negative (Negative); Ketones,Urine Negative (Negative); Leukocyte Esterase,Urine Small (Negative); Nitrite,Urine Negative (Negative); PH, Urine 6.5 (5.0-8.0); Particle Count 1270; Protein,Urine Negative (Negative); RBC,Urine 1 /hpf (0-5); Specific Gravity,Urine 1.006 (1.001-1.035); Squamous Epithelial Cell,Urine 3 /hpf (0-4); UA Billing (MACRO vs. MICRO) MICRO; Urobilinogen,Urine <2.0 mg/dL (<2.0); WBC,Urine 8 /hpf (0-5)
[2017-07-09 14:06] LABS: HCG,Qualitative Serum Not Detected
[2017-07-09 14:07] LABS: Basophils % (A) 1 %; CH 26.9; CHCM 32.9; Eosinophils # (A) 0.2 k/uL (0-0.7); Eosinophils % (A) 2 %; HCT 37.1 % (34.0-46.0); HDW 2.36; HGB 12.1 gm/dL (11.4-16.0); Luc # (Auto) 0.09; Luc % (Auto) 1; Lymphocytes # (A) 2.1 k/uL (1.0-4.8); Lymphocytes % (A) 30 %; MCH 26.8 pg (25.0-35.0); MCHC 32.7 g/dL (31.0-37.0); Mean Platelet Volume 9.8; Monocytes # (A) 0.3 k/uL (0-1.0); Monocytes % (A) 5 %; Neutrophils # (A) 4.3 k/uL (1.3-7.7); Neutrophils % (A) 61 %; RBC 4.52 m/uL (3.80-5.40); RDW 15.6 % (11.5-15.5); WBC (Perox) 7.06
[2017-07-09 14:09] LABS: Anion Gap 8 mmol/L; Calcium 9.2 mg/dL (8.4-10.2); Carbon Dioxide 22 mmol/L (22-30); Chloride 109 mmol/L (98-107); Glucose 119 mg/dL (74-99); Non-African American GFR(MDRD) >60 (>60 ml/min/1.73 sqM); Sodium 139 mmol/L (137-145); Total Bilirubin 0.2 mg/dL (0.2-1.3); Total Protein 6.7 g/dL (6.3-8.2)
[2017-07-09 14:13] LABS: ALT 32 U/L (9-52); AST 22 U/L (14-36); Alkaline Phosphatase 71 U/L (38-126); Blood Urea Nitrogen 12 mg/dL (7-17); Potassium 4.7 mmol/L (3.5-5.1)
[2017-07-09] MEDS ORDERED: traMADol 50 MG TAB PO STA (14:25)
--- NOTE | 2017-07-09 14:30 | XR ---
EXAMINATION TYPE: XR chest 2V DATE OF EXAM: 07/09/2017 COMPARISON: 07/06/2017 TECHNIQUE: PA and lateral views submitted. HISTORY: Pain FINDINGS: The lungs are clear and there is no pneumothorax, pleural effusion, or focal pneumonia. IMPRESSION: 1. No acute process.
[2017-07-09 14:45] VITALS: BP 113/78; PULSE 73; RESP 16; TEMP 98
== END 2017-07-09 14:56 | disposition home or self-care (01) ==
LOC: EC 12:55 → EEVIPCON 12:55 → EC 14:56
DX: R07.9 Chest pain, unspecified (principal); R11.0 Nausea; R06.02 Shortness of breath; J45.909 Unspecified asthma, uncomplicated; E66.9 Obesity, unspecified; F20.9 Schizophrenia, unspecified; F17.200 Nicotine dependence, unspecified, uncomplicated; Z88.0 Allergy status to penicillin; Z68.36 Body mass index [BMI] 36.0-36.9, adult; Z88.2 Allergy status to sulfonamides; Z88.8 Allergy status to other drugs, medicaments and biological substances; Z79.899 Other long term (current) drug therapy
CPT/HCPCS: 36415; 85379; 80053; 85025; 81001; 84703; 80306; 71020; 99285; 96374; 96375; J2405; J1885; 93005

== ENCOUNTER 2017-07-19 05:24 | Emergency (ER) | payer OTHER ==
[2017-07-19 05:40] VITALS: RESP 18; TEMP 98.2
--- NOTE | 2017-07-19 06:02 | ED ---
Chest Pain HPI - General Source: EMS Mode of arrival: EMS Limitations: no limitations - History of Present Illness MD Complaint: chest pain -: days(s) Onset: during rest Pain Location: substernal, left chest Pain Radiation: none Severity: severe Quality: sharp Consistency: constant Improves With: nothing Worsens With: palpation Other Symptoms: cough Treatments Prior to Arrival: none <Anthony Bella - Last Filed: 07/19/17 06:17> <Duy Inman - Last Filed: 07/19/17 08:01> - General Chief Complaint: Chest Pain Stated Complaint: Chest pain Time Seen by Provider: 07/19/17 05:56 - Related Data Home Medications Medication Instructions Recorded Confirmed Albuterol Nebulized [Ventolin 2.5 mg INHALATION RT-Q6H PRN 06/15/17 07/11/17 Nebulized] Fluphenazine HCl [fluPHENAZine HCL] 10 mg PO BID 07/06/17 07/11/17 fluPHENAZine [Prolixin 5MG] 5 mg PO BID 07/06/17 07/11/17 Previous Rx's Medication Instructions Recorded Benztropine Mesylate [Cogentin] 1 mg PO BID #60 tab 06/19/17 Divalproex ER [Depakote ER] 250 mg PO DAILY #30 tab.er.24h 06/19/17 Divalproex ER [Depakote ER] 500 mg PO HS #30 tab.er.24h 06/19/17 Doxepin [SINEquan] 50 mg PO HS #60 cap 06/19/17 Sertraline [Zoloft] 50 mg PO DAILY #30 tab 06/19/17 Allergies Allergy/AdvReac Type Severity Reaction Status Date / Time Penicillins Allergy Severe Anaphylaxis Verified 07/11/17 18:40 Sulfa (Sulfonamide Allergy Severe Anaphylaxis Verified 07/11/17 18:40 Antibiotics) diphenhydramine HCl Allergy Rash/Hives Verified 07/11/17 18:40 [From Benadryl] Review of Systems ROS Other: All systems not noted in ROS Statement are negative. Constitutional: Denies: fever, chills Respiratory: Denies: cough, dyspnea Cardiovascular: Reports: chest pain. Denies: palpitations, edema, syncope Gastrointestinal: Denies: abdominal pain, nausea, vomiting Genitourinary: Denies: dysuria, hematuria Musculoskeletal: Denies: back pain Skin: Denies: rash Neurological: Denies: headache, weakness <Anthony Bella - Last Filed: 07/19/17 06:17> ROS Other: All systems not noted in ROS Statement are negative. <Duy Inman - Last Filed: 07/19/17 08:01> ROS Statement: Those systems with pertinent positive or pertinent negative responses have been documented in the HPI. 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 Past Anesthesia/Blood Transfusion Reactions: No Reported Reaction Additional Past Anesthesia/Blood Transfusion Reaction / Comment(s): Patient does not believe she has had a reaction to anesthesia. Past Psychological History: Anxiety, Panic Disorder, PTSD, Schizophrenia Smoking Status: Current every day smoker Past Alcohol Use History: None Reported Past Drug Use History: Marijuana - Past Family History Mother Family Medical History: No Reported History Father Family Medical History: No Reported History Additional Family Medical History / Comment(s): bipolar, sever seasonal allergies Brother(s) Family Medical History: No Reported History Sister(s) Family Medical History: No Reported History <Anthony Bella - Last Filed: 07/19/17 06:17> General Exam Limitations: no limitations General appearance: alert, in no apparent distress Head exam: Present: atraumatic, normocephalic Eye exam: Present: normal appearance ENT exam: Present: normal oropharynx Neck exam: Present: normal inspection Respiratory exam: Present: normal lung sounds bilaterally, chest wall tenderness. Absent: respiratory distress, wheezes, rales, rhonchi, stridor, accessory muscle use Cardiovascular Exam: Present: regular rate, normal rhythm, normal heart sounds. Absent: systolic murmur, diastolic murmur, rubs, gallop GI/Abdominal exam: Present: soft. Absent: distended, tenderness, guarding, rebound, mass Extremities exam: Present: normal inspection, normal capillary refill. Absent: pedal edema, calf tenderness Back exam: Present: normal inspection. Absent: CVA tenderness (R), CVA tenderness (L) Neurological exam: Present: alert Skin exam: Present: warm, dry, intact, normal color. Absent: rash <Anthony Bella - Last Filed: 07/19/17 06:17> Course <Anthony Bella - Last Filed: 07/19/17 06:17> <Duy Inman - Last Filed: 07/19/17 08:01> Vital Signs 07/19/17 07/19/17 05:32 07:04 Temperature 98.2 F Pulse Rate 69 80 Respiratory 18 18 Rate Blood Pressure 113/64 102/72 O2 Sat by Pulse 97 100 Oximetry - Reevaluation(s) Reevaluation #1: 07/19/17 07:58 Patient dressed and standing the hallway requesting discharge. Patient states she is fine at this time and has no complaints. Patient updated on results. Chest x-ray reviewed by myself shows no acute process. 07/19/17 08:00 Patient left without discharge instructions. EKG reviewed shows normal sinus rhythm 91. TX 146. QRS 76. QT 32. QTC 469. Normal axis. Normal QRS. No specific T waves. (Duy Inman) Disposition <Anthony Bella - Last Filed: 07/19/17 06:17> Time of Disposition: 08:01 <Duy Inman - Last Filed: 07/19/17 08:01> Clinical Impression: Chest pain Disposition: HOME SELF-CARE Condition: Stable Additional Instructions: Patient left without discharge instructions Referrals: Lauren Denson MD [Primary Care Provider] - 1-2 days
[2017-07-19 06:11] LABS: Anisocytosis Slight; Basophils # (A) 0.1 k/uL (0-0.2); Basophils % (A) 0 %; CH 27.3; CHCM 32.6; Eosinophils % (A) 0 %; HCT 39.2 % (34.0-46.0); HDW 2.99; HGB 12.6 gm/dL (11.4-16.0); Luc # (Auto) 0.17; Luc % (Auto) 1; Lymphocytes # (A) 2.4 k/uL (1.0-4.8); Lymphocytes % (A) 18 %; MCH 27.1 pg (25.0-35.0); MCHC 32.1 g/dL (31.0-37.0); MCV 84.4 fL (80.0-100.0); Monocytes # (A) 0.4 k/uL (0-1.0); Monocytes % (A) 3 %; Neutrophils # (A) 10.7 k/uL (1.3-7.7); Neutrophils % (A) 78 %; RBC 4.64 m/uL (3.80-5.40); RDW 16.2 % (11.5-15.5); WBC 13.8 k/uL (3.8-10.6)
--- NOTE | 2017-07-19 06:19 | XR ---
EXAM: XR Chest, 1 View CLINICAL HISTORY: Reason: chest pain TECHNIQUE: Frontal view of the chest. COMPARISON: 07/11/17 FINDINGS: Lungs: Unremarkable. No consolidation. Pleural space: Unremarkable. No pneumothorax. Heart: Unremarkable. No cardiomegaly. Mediastinum: Unremarkable. Bones/joints: Unremarkable. IMPRESSION: No lobar consolidation or pulmonary edema.
[2017-07-19 07:06] VITALS: BP 102/72; PULSE 80
[2017-07-19 07:09] LABS: Partial Thromboplastin Time 24.2 sec (22.0-30.0); Prothrombin Time 9.9 sec (9.0-12.0)
[2017-07-19 07:17] LABS: ALT 47 U/L (9-52); AST 19 U/L (14-36); Alkaline Phosphatase 90 U/L (38-126); Amylase 51 U/L (30-110); Anion Gap 9 mmol/L; Blood Urea Nitrogen 11 mg/dL (7-17); Calcium 9.6 mg/dL (8.4-10.2); Carbon Dioxide 24 mmol/L (22-30); Chloride 109 mmol/L (98-107); Glucose 94 mg/dL (74-99); Magnesium 1.8 mg/dL (1.6-2.3); Non-African American GFR(MDRD) >60 (>60 ml/min/1.73 sqM); Potassium 4.4 mmol/L (3.5-5.1); Sodium 142 mmol/L (137-145); Total Bilirubin 0.1 mg/dL (0.2-1.3); Total Protein 7.1 g/dL (6.3-8.2)
[2017-07-19 07:33] LABS: Creatine Kinase 77 U/L (30-135)
[2017-07-19 07:45] LABS: Creatine Kinase MB <0.2 ng/mL (0.0-2.4); Troponin I <0.012 ng/mL (0.000-0.034)
== END 2017-07-19 08:01 | disposition home or self-care (01) ==
LOC: EC 05:24
DX: R07.2 Precordial pain (principal); J45.909 Unspecified asthma, uncomplicated; E66.9 Obesity, unspecified; F20.9 Schizophrenia, unspecified; F17.200 Nicotine dependence, unspecified, uncomplicated; Z68.36 Body mass index [BMI] 36.0-36.9, adult; Z88.0 Allergy status to penicillin; Z88.2 Allergy status to sulfonamides; Z88.8 Allergy status to other drugs, medicaments and biological substances; Z79.899 Other long term (current) drug therapy
CPT/HCPCS: 36415; 71010; 80053; 82150; 82550; 82553; 83690; 83735; 84484; 85025; 85379; 85610; 85730; 93005; 99285

== ENCOUNTER 2017-07-29 22:16 | Emergency (ER) | payer OTHER ==
[2017-07-29 22:21] VITALS: BP 114/65; PULSE 105; RESP 20; TEMP 98.1
[2017-07-29] MEDS ORDERED: hydrOXYzine PAMOATE 25 MG CAP PO STA (22:38)
[2017-07-29] MEDS ORDERED: KETOROLAC 60 MG/2 ML VIAL IM STA (22:38)
[2017-07-29] MEDS ORDERED: DEXAMETHASONE 4 MG TAB PO STA (22:38)
[2017-07-29] MEDS ORDERED: METOCLOPRAMIDE 10 MG TAB PO STA (22:38)
--- NOTE | 2017-07-29 22:56 | ED ---
General Adult HPI - General Chief complaint: Headache Stated complaint: headache Time Seen by Provider: 07/29/17 22:26 Source: patient, EMS Mode of arrival: EMS Limitations: no limitations - History of Present Illness Initial comments: Patient is a 22-year-old female, familiar to me, presents with a chief complaint of headache. States she has a migraine headache that is worsened with light and sound. Alleviated by dark. She states she has a history of migraine headaches. She has not complaints at this time. On initial evaluation , patient appears to be in no acute distress. Patient zbigniew asked for a cab ride home. - Related Data Home Medications Medication Instructions Recorded Confirmed Albuterol Nebulized [Ventolin 2.5 mg INHALATION RT-Q6H PRN 06/15/17 07/29/17 Nebulized] Fluphenazine HCl [fluPHENAZine HCL] 10 mg PO BID 07/06/17 07/29/17 fluPHENAZine [Prolixin 5MG] 5 mg PO BID 07/06/17 07/29/17 Previous Rx's Medication Instructions Recorded Benztropine Mesylate [Cogentin] 1 mg PO BID #60 tab 06/19/17 Divalproex ER [Depakote ER] 250 mg PO DAILY #30 tab.er.24h 06/19/17 Divalproex ER [Depakote ER] 500 mg PO HS #30 tab.er.24h 06/19/17 Doxepin [SINEquan] 50 mg PO HS #60 cap 06/19/17 Sertraline [Zoloft] 50 mg PO DAILY #30 tab 06/19/17 Allergies Allergy/AdvReac Type Severity Reaction Status Date / Time Penicillins Allergy Severe Anaphylaxis Verified 07/29/17 22:28 Sulfa (Sulfonamide Allergy Severe Anaphylaxis Verified 07/29/17 22:28 Antibiotics) diphenhydramine HCl Allergy Rash/Hives Verified 07/29/17 22:28 [From Benadryl] Review of Systems ROS Statement: Those systems with pertinent positive or pertinent negative responses have been documented in the HPI. ROS Other: All systems not noted in ROS Statement are negative. 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 Past Anesthesia/Blood Transfusion Reactions: No Reported Reaction Additional Past Anesthesia/Blood Transfusion Reaction / Comment(s): Patient does not believe she has had a reaction to anesthesia. Past Psychological History: Anxiety, Panic Disorder, PTSD, Schizophrenia Smoking Status: Current every day smoker Past Alcohol Use History: None Reported Past Drug Use History: Marijuana - Past Family History Mother Family Medical History: No Reported History Father Family Medical History: No Reported History Additional Family Medical History / Comment(s): bipolar, sever seasonal allergies Brother(s) Family Medical History: No Reported History Sister(s) Family Medical History: No Reported History General Exam Limitations: no limitations General appearance: alert, in no apparent distress Head exam: Present: atraumatic, normocephalic Eye exam: Present: normal appearance ENT exam: Present: normal exam Neck exam: Present: normal inspection Respiratory exam: Present: normal lung sounds bilaterally, respiratory distress Cardiovascular Exam: Present: regular rate, normal rhythm GI/Abdominal exam: Present: soft. Absent: distended, tenderness Neurological exam: Present: alert, oriented X3, normal gait Psychiatric exam: Present: normal mood, flat affect Skin exam: Present: warm, dry, intact Course Vital Signs 07/29/17 22:17 Temperature 98.1 F Pulse Rate 105 H Respiratory 20 Rate Blood Pressure 114/65 O2 Sat by Pulse 97 Oximetry Medical Decision Making - Medical Decision Making Patient presents with a chief complaint of a headache. On initial evaluation, vital signs are stable, patient is in no acute distress. Patient is well-known to me and has a very flat affect. I discussed symptomatically with a headache. Patient immediately asks if she can get a cab ride home. Patient was given medications, a few minutes later she told nursing staff that she feels better like to be discharged. At this time, patient is stable for discharge. She is instructed to follow-up with her primary care doctor. Disposition Clinical Impression: Migraine Disposition: HOME SELF-CARE Condition: Good Instructions: Acute Headache (ED) Referrals: Lauren Denson MD [Primary Care Provider] - 1-2 days
== END 2017-07-29 23:23 | disposition home or self-care (01) ==
LOC: EC 22:16
DX: G43.909 Migraine, unspecified, not intractable, without status migrainosus (principal); F20.9 Schizophrenia, unspecified; F17.200 Nicotine dependence, unspecified, uncomplicated; E66.9 Obesity, unspecified; Z68.36 Body mass index [BMI] 36.0-36.9, adult; Z79.899 Other long term (current) drug therapy; Z88.0 Allergy status to penicillin; Z88.2 Allergy status to sulfonamides; Z88.8 Allergy status to other drugs, medicaments and biological substances
CPT/HCPCS: 99283; 96372; J8540; J1885

== ENCOUNTER 2017-07-31 21:33 | Emergency (ER) | payer OTHER ==
--- NOTE | 2017-07-31 22:22 | ED ---
Chest Pain HPI - General Chief Complaint: Chest Pain Stated Complaint: chest pain Time Seen by Provider: 07/31/17 21:33 Source: patient, EMS, RN notes reviewed Mode of arrival: EMS Limitations: no limitations - History of Present Illness Initial Comments: This is a 22-year-old female with no prior history of heart or lung disease was a smoker who states she had the onset 1 hour prior to admission of sharp midsternal chest pain. She states she does feel better now she was brought in by EMS. She states she believes was secondary to anxiety. She had no fevers chills sweats cough or other symptoms. MD Complaint: chest pain - Related Data Home Medications Medication Instructions Recorded Confirmed Albuterol Nebulized [Ventolin 2.5 mg INHALATION RT-Q6H PRN 06/15/17 07/31/17 Nebulized] Fluphenazine HCl [fluPHENAZine HCL] 10 mg PO BID 07/06/17 07/31/17 fluPHENAZine [Prolixin 5MG] 5 mg PO BID 07/06/17 07/31/17 Previous Rx's Medication Instructions Recorded Benztropine Mesylate [Cogentin] 1 mg PO BID #60 tab 06/19/17 Divalproex ER [Depakote ER] 250 mg PO DAILY #30 tab.er.24h 06/19/17 Divalproex ER [Depakote ER] 500 mg PO HS #30 tab.er.24h 06/19/17 Doxepin [SINEquan] 50 mg PO HS #60 cap 06/19/17 Sertraline [Zoloft] 50 mg PO DAILY #30 tab 06/19/17 Allergies Allergy/AdvReac Type Severity Reaction Status Date / Time Penicillins Allergy Severe Anaphylaxis Verified 07/31/17 21:58 Sulfa (Sulfonamide Allergy Severe Anaphylaxis Verified 07/31/17 21:58 Antibiotics) diphenhydramine HCl Allergy Rash/Hives Verified 07/31/17 21:58 [From Benadryl] Review of Systems ROS Statement: Those systems with pertinent positive or pertinent negative responses have been documented in the HPI. ROS Other: All systems not noted in ROS Statement are negative. 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 Past Anesthesia/Blood Transfusion Reactions: No Reported Reaction Additional Past Anesthesia/Blood Transfusion Reaction / Comment(s): Patient does not believe she has had a reaction to anesthesia. Past Psychological History: Anxiety, Panic Disorder, PTSD, Schizophrenia Smoking Status: Current every day smoker Past Alcohol Use History: Occasional Past Drug Use History: Marijuana - Past Family History Mother Family Medical History: No Reported History Father Family Medical History: No Reported History Additional Family Medical History / Comment(s): bipolar, sever seasonal allergies Brother(s) Family Medical History: No Reported History Sister(s) Family Medical History: No Reported History General Exam - General Exam Comments Initial Comments: This is a well-developed well-nourished awake alert oriented 3 female Limitations: no limitations General appearance: alert, in no apparent distress Head exam: Present: atraumatic, normocephalic, normal inspection Eye exam: Present: normal appearance, PERRL, EOMI. Absent: scleral icterus, conjunctival injection, periorbital swelling ENT exam: Present: normal exam, mucous membranes moist Neck exam: Present: normal inspection, full ROM. Absent: tenderness, meningismus, lymphadenopathy Respiratory exam: Present: normal lung sounds bilaterally, chest wall tenderness. Absent: wheezes, rhonchi, decreased breath sounds Cardiovascular Exam: Present: regular rate, normal rhythm, normal heart sounds. Absent: systolic murmur, diastolic murmur, rubs, gallop, clicks GI/Abdominal exam: Present: soft, normal bowel sounds. Absent: distended, tenderness, guarding, rebound, rigid Back exam: Present: normal inspection Neurological exam: Present: alert, oriented X3, CN II-XII intact Psychiatric exam: Present: normal affect, normal mood Skin exam: Present: warm, dry, intact, normal color. Absent: rash Course Vital Signs 07/31/17 21:49 Temperature 97.0 F L Pulse Rate 80 Respiratory 16 Rate Blood Pressure 109/57 O2 Sat by Pulse 97 Oximetry - Reevaluation(s) Reevaluation #1: 07/31/17 22:22 The patient was offered pain medication she states her pain is much better now and she does not need anything. She does not want a chest x-ray or EKG. Chest Pain MDM - MDM Patient states she feels better now and does not want any other workup at this time. The patient is reproducible consistent with costochondritis. Patient will be discharged we did have a long discussion regarding smoking cessation lasting 3.1 minutes. Patient was counseled on the risks of continuing to smoke. This did include heart and lung disease breast cancer and more. Disposition Clinical Impression: Costalchondritis, Chest wall syndrome, Smoking Disposition: HOME SELF-CARE Condition: Good Instructions: Costochondritis (ED), How to Stop Smoking (ED) Additional Instructions: [id number] Advil or Motrin for pain. Referrals: Lauren Denson MD [Primary Care Provider] - 1-2 days
[2017-07-31 22:47] VITALS: BP 106/51; PULSE 86; RESP 18; TEMP 98.3
== END 2017-07-31 22:32 | disposition home or self-care (01) ==
LOC: EC 21:33
DX: M94.0 Chondrocostal junction syndrome [Tietze] (principal); R07.1 Chest pain on breathing; F20.9 Schizophrenia, unspecified; E66.9 Obesity, unspecified; F17.200 Nicotine dependence, unspecified, uncomplicated; Z68.36 Body mass index [BMI] 36.0-36.9, adult; Z79.899 Other long term (current) drug therapy; Z88.0 Allergy status to penicillin; Z88.2 Allergy status to sulfonamides; Z88.8 Allergy status to other drugs, medicaments and biological substances
CPT/HCPCS: 99285

== ENCOUNTER 2017-08-03 03:00 | Emergency (ER) | payer OTHER ==
[2017-08-03] MEDS ORDERED: KETOROLAC 30 MG/ML 1 ML VIAL IVP STA (03:16)
[2017-08-03 03:20] VITALS: RESP 18; TEMP 97.5
--- NOTE | 2017-08-03 03:30 | ED ---
Chest Pain HPI - General Stated Complaint: Chest Pain Time Seen by Provider: 08/03/17 03:00 Source: patient, RN/MD, EMS, RN notes reviewed, old records reviewed Mode of arrival: EMS Limitations: no limitations - History of Present Illness Initial Comments: This is a 23-year-old female with a history of depression and schizophrenia and asthma who is a smoker who came in by EMS after playing of the intensive his sternal chest pain about one hour prior to admission. She states it was sharp left-sided chest pain just complains of back pain she states it was 10/10 she was given aspirin nitroglycerin by paramedics and states that it immediately dropped to 5/10. No trauma no fevers chills sweats cough or other symptoms she was seen in this emergency department recently for the same and has had multiple visits for the same. MD Complaint: chest pain - Related Data Home Medications Medication Instructions Recorded Confirmed Albuterol Nebulized [Ventolin 2.5 mg INHALATION RT-Q6H PRN 06/15/17 07/31/17 Nebulized] Fluphenazine HCl [fluPHENAZine HCL] 10 mg PO BID 07/06/17 07/31/17 fluPHENAZine [Prolixin 5MG] 5 mg PO BID 07/06/17 07/31/17 Previous Rx's Medication Instructions Recorded Benztropine Mesylate [Cogentin] 1 mg PO BID #60 tab 06/19/17 Divalproex ER [Depakote ER] 250 mg PO DAILY #30 tab.er.24h 06/19/17 Divalproex ER [Depakote ER] 500 mg PO HS #30 tab.er.24h 06/19/17 Doxepin [SINEquan] 50 mg PO HS #60 cap 06/19/17 Sertraline [Zoloft] 50 mg PO DAILY #30 tab 06/19/17 Ibuprofen [Motrin] 600 mg PO Q6HR PRN #20 tab 08/03/17 Allergies Allergy/AdvReac Type Severity Reaction Status Date / Time Penicillins Allergy Severe Anaphylaxis Verified 08/03/17 03:11 Sulfa (Sulfonamide Allergy Severe Anaphylaxis Verified 08/03/17 03:11 Antibiotics) diphenhydramine HCl Allergy Rash/Hives Verified 08/03/17 03:11 [From Benadryl] Review of Systems ROS Statement: Those systems with pertinent positive or pertinent negative responses have been documented in the HPI. ROS Other: All systems not noted in ROS Statement are negative. EKG Findings - EKG Results: EKG: interpreted by ERMD, sinus rhythm (Sinus rhythm rate of 81. 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 Past Anesthesia/Blood Transfusion Reactions: No Reported Reaction Additional Past Anesthesia/Blood Transfusion Reaction / Comment(s): Patient does not believe she has had a reaction to anesthesia. Past Psychological History: Anxiety, Panic Disorder, PTSD, Schizophrenia Smoking Status: Current every day smoker Past Alcohol Use History: Occasional Past Drug Use History: Marijuana - Past Family History Mother Family Medical History: No Reported History Father Family Medical History: No Reported History Additional Family Medical History / Comment(s): bipolar, sever seasonal allergies Brother(s) Family Medical History: No Reported History Sister(s) Family Medical History: No Reported History General Exam - General Exam Comments Initial Comments: This a well-developed well-nourished awake alert oriented female Limitations: no limitations General appearance: alert, in no apparent distress Head exam: Present: atraumatic, normocephalic, normal inspection Eye exam: Present: normal appearance, PERRL, EOMI. Absent: scleral icterus, conjunctival injection, periorbital swelling ENT exam: Present: normal exam, mucous membranes moist Neck exam: Present: normal inspection. Absent: tenderness, meningismus, lymphadenopathy Respiratory exam: Present: normal lung sounds bilaterally, chest wall tenderness (Reproducible tenderness palpation along the left costal sternal margin no step-off or crepitation). Absent: respiratory distress, wheezes, rales, rhonchi, stridor Cardiovascular Exam: Present: regular rate, normal rhythm, normal heart sounds. Absent: systolic murmur, diastolic murmur, rubs, gallop, clicks GI/Abdominal exam: Present: soft, normal bowel sounds. Absent: distended, tenderness, guarding, rebound, rigid Extremities exam: Present: normal inspection, full ROM, normal capillary refill. Absent: tenderness, pedal edema, joint swelling, calf tenderness Back exam: Present: normal inspection, tenderness (Tenderness palpation over the right paraspinous muscles and rhomboid musculature.) Neurological exam: Present: alert, oriented X3, CN II-XII intact Psychiatric exam: Present: normal mood, flat affect Skin exam: Present: warm, dry, intact, normal color. Absent: rash Course Vital Signs 08/03/17 08/03/17 08/03/17 03:03 03:37 04:24 Temperature 97.5 F L Pulse Rate 99 87 84 Respiratory 18 18 18 Rate Blood Pressure 114/54 101/61 86/54 O2 Sat by Pulse 98 99 97 Oximetry Chest Pain MDM - MDM I did review the imaging and report no acute findings. Patient will be discharged the presentation is consistent with costochondritis and chest wall pain. Disposition Clinical Impression: Chest wall syndrome, Costalchondritis Disposition: HOME SELF-CARE Condition: Good Instructions: Costochondritis (ED) Prescriptions: Ibuprofen [Motrin] 600 mg PO Q6HR PRN #20 tab PRN Reason: Pain Referrals: Lauren Denson MD [Primary Care Provider] - 1-2 days
[2017-08-03 03:45] LABS: Basophils % (A) 0 %; Eosinophils % (A) 0 %; HGB 12.3 gm/dL (11.4-16.0); Lymphocytes # (A) 2.8 k/uL (1.0-4.8); Lymphocytes % (A) 24 %; MCH 27.3 pg (25.0-35.0); MCHC 33.4 g/dL (31.0-37.0); MCV 81.9 fL (80.0-100.0); Mean Platelet Volume 7.7; Monocytes # (A) 0.6 k/uL (0-1.0); Monocytes % (A) 5 %; Neutrophils # (A) 8.2 k/uL (1.3-7.7); Neutrophils % (A) 70 %; Platelet Count 270 k/uL (150-450); RBC 4.52 m/uL (3.80-5.40); RDW 14.3 % (11.5-15.5); WBC 11.8 k/uL (3.8-10.6)
[2017-08-03 03:56] LABS: D-Dimer 0.38 mg/L FEU (<0.60)
[2017-08-03 03:58] LABS: ALT 47 U/L (9-52); AST 20 U/L (14-36); Albumin 4.2 g/dL (3.5-5.0); Alkaline Phosphatase 104 U/L (38-126); Anion Gap 12 mmol/L; Blood Urea Nitrogen 14 mg/dL (7-17); Calcium 9.8 mg/dL (8.4-10.2); Carbon Dioxide 21 mmol/L (22-30); Chloride 108 mmol/L (98-107); Glucose 87 mg/dL (74-99); Magnesium 1.8 mg/dL (1.6-2.3); Potassium 4.4 mmol/L (3.5-5.1); Sodium 141 mmol/L (137-145); Total Bilirubin 0.4 mg/dL (0.2-1.3); Total Protein 7.1 g/dL (6.3-8.2)
[2017-08-03 04:00] LABS: Partial Thromboplastin Time 23.9 sec (22.0-30.0); Prothrombin Time 10.1 sec (9.0-12.0)
[2017-08-03 04:05] LABS: Creatine Kinase 83 U/L (30-135)
[2017-08-03 04:18] LABS: Creatine Kinase MB 0.3 ng/mL (0.0-2.4); Troponin I <0.012 ng/mL (0.000-0.034)
[2017-08-03 04:25] VITALS: BP 86/54; PULSE 84
--- NOTE | 2017-08-03 04:34 | XR ---
EXAM: XR Chest, 2 Views CLINICAL HISTORY: Reason: Chest Pain TECHNIQUE: Frontal and lateral views of the chest. COMPARISON: 07/19/2017 FINDINGS: Lungs: Unremarkable. No consolidation. Pleural space: Unremarkable. No pneumothorax. Heart: Unremarkable. No cardiomegaly. Mediastinum: Unremarkable. Bones/joints: No acute osseous abnormality. IMPRESSION: No acute cardiopulmonary process.
== END 2017-08-03 04:52 | disposition home or self-care (01) ==
LOC: EC 03:00
DX: M94.0 Chondrocostal junction syndrome [Tietze] (principal); F20.9 Schizophrenia, unspecified; F17.200 Nicotine dependence, unspecified, uncomplicated; Z79.899 Other long term (current) drug therapy; Z88.0 Allergy status to penicillin; Z88.2 Allergy status to sulfonamides
CPT/HCPCS: 36415; 93005; 85379; 80053; 82550; 82553; 83735; 84484; 85025; 85610; 85730; 71046; 99285; 96374; J1885

== ENCOUNTER 2017-08-03 23:30 | Inpatient (IN) | payer MEDICAID, OTHER ==
[2017-08-04] MEDS ORDERED: ONDANSETRON ODT 4 MG TAB PO STA (00:23)
[2017-08-04 00:48] LABS: Amphetamine Screen,Urine Not Detected (NotDetected); Barbiturate Screen,Urine Not Detected (NotDetected); Benzodiazepines Screen,Urine Not Detected (NotDetected); Cocaine Screen,Urine Detected (NotDetected); Methadone Screen, Urine Not Detected (NotDetected); Opiate Screen,Urine Not Detected (NotDetected); Oxycodone Screen, Urine Not Detected (NotDetected); Phencyclidine Screen,Urine Not Detected (NotDetected); Tricyclic Antidepressant,Urine Not Detected (NotDetected); Urn Cannabinoid Scrn Detected (NotDetected)
--- NOTE | 2017-08-04 01:01 | ED ---
Psych HPI - General Chief Complaint: Psychiatric Symptoms Stated Complaint: Petition Time Seen by Provider: 08/04/17 00:08 Source: patient, RN notes reviewed Mode of arrival: ambulatory - History of Present Illness Initial Comments: This is a 22-year-old female who presents to the emergency department for a mental health evaluation. Patient is under court order to continue taking her medications. Patient states that she has not been taking her medications for the past 2 weeks. She states that she feels she does not need them and she doesn't feel any different than when she is on the medication. Patient was brought to the emergency department via [place] [employer]. Patient states that she was asleep at home when the police department arrived. Patient denies suicidal or homicidal ideation. She denies any hallucinations. Patient only complains of some nausea at this time. She has no other complaints. Denies fever, chills, chest pain, shortness of breath, abdominal pain, vomiting , constipation or diarrhea, dysuria or hematuria, numbness or tingling, headache or vision changes. - Related Data Home Medications Medication Instructions Recorded Confirmed Albuterol Nebulized [Ventolin 2.5 mg INHALATION RT-Q6H PRN 06/15/17 07/31/17 Nebulized] Fluphenazine HCl [fluPHENAZine HCL] 10 mg PO BID 07/06/17 07/31/17 fluPHENAZine [Prolixin 5MG] 5 mg PO BID 07/06/17 07/31/17 Previous Rx's Medication Instructions Recorded Benztropine Mesylate [Cogentin] 1 mg PO BID #60 tab 06/19/17 Divalproex ER [Depakote ER] 250 mg PO DAILY #30 tab.er.24h 06/19/17 Divalproex ER [Depakote ER] 500 mg PO HS #30 tab.er.24h 06/19/17 Doxepin [SINEquan] 50 mg PO HS #60 cap 06/19/17 Sertraline [Zoloft] 50 mg PO DAILY #30 tab 06/19/17 Ibuprofen [Motrin] 600 mg PO Q6HR PRN #20 tab 08/03/17 Allergies Allergy/AdvReac Type Severity Reaction Status Date / Time Penicillins Allergy Severe Anaphylaxis Verified 08/03/17 03:11 Sulfa (Sulfonamide Allergy Severe Anaphylaxis Verified 08/03/17 03:11 Antibiotics) diphenhydramine HCl Allergy Rash/Hives Verified 08/03/17 03:11 [From Benadryl] Review of Systems ROS Statement: Those systems with pertinent positive or pertinent negative responses have been documented in the HPI. ROS Other: All systems not noted in ROS Statement are negative. 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 Past Anesthesia/Blood Transfusion Reactions: No Reported Reaction Additional Past Anesthesia/Blood Transfusion Reaction / Comment(s): Patient does not believe she has had a reaction to anesthesia. Past Psychological History: Anxiety, Panic Disorder, PTSD, Schizophrenia Smoking Status: Current every day smoker Past Alcohol Use History: Occasional Past Drug Use History: Marijuana - Past Family History Mother Family Medical History: No Reported History Father Family Medical History: No Reported History Additional Family Medical History / Comment(s): bipolar, sever seasonal allergies Brother(s) Family Medical History: No Reported History Sister(s) Family Medical History: No Reported History General Exam - General Exam Comments Initial Comments: General: Awake and alert, well-developed; in no apparent distress. Dark circles under her eyes. Hair matted at the back of her head. HEENT: Head atraumatic, normocephalic. Pupils are equal, round and reactive to light. Extraocular movements intact. Oropharynx moist without erythema or exudate. Neck: Supple. Normal ROM. Cardiovascular: Regular rate and rhythm. No murmurs, rubs or gallops. Chest symmetrical. Respiratory: Lungs clear to auscultation bilaterally. No wheezes, rales or rhonchi. Normal respiratory effort with no use of accessory muscles. Abdomen: Soft, non-tender, non-distended. No rigidity, rebound or guarding. Normal bowel sounds in all 4 quadrants. Musculoskeletal: Normal ROM, no tenderness bilateral upper and lower extremities. Ambulating normally. Skin: Butters, warm and dry without rashes or lesions. Neurological: Alert and oriented x3. CN II-XII grossly intact. Speech is fluent and answers are appropriate. No focal neuro deficits. Psychiatric: Flat affect. Speaks in a monotone voice. Limitations: no limitations Course Vital Signs 08/03/17 23:48 Temperature 97.0 F L Pulse Rate 112 H Respiratory 20 Rate Blood Pressure 117/69 O2 Sat by Pulse 100 Oximetry Medical Decision Making - Medical Decision Making This is a 22-year-old female who presents to the emergency department for mental health evaluation. Patient is court ordered to comply with her medication regimen. Patient admits to not taking her medications as instructed to do so. Patient was brought to the emergency department by [place] [employer]. Patient complains of some nausea but is otherwise physically healthy. I spoke with Tammy of mental health and patient will be admitted to the psychiatric puga. Drug screen revealed positive THC and cocaine. She is in no acute distress at this time. - Lab Data Lab Results 08/04/17 08/04/17 08/04/17 Range/Units 00:00 00:00 00:00 Urine Color Yellow Urine Appearance Clear (Clear) Urine pH 6.0 (5.0-8.0) Ur Specific [place] 1.023 (1.001-1.035) Urine Protein Negative (Negative) Urine Glucose (UA) Negative (Negative) Urine Ketones Negative (Negative) Urine Blood Negative (Negative) Urine Nitrite Negative (Negative) Urine Bilirubin Negative (Negative) Urine Urobilinogen <2.0 (<2.0) mg/dL Ur Leukocyte Esterase Negative (Negative) Urine HCG, Qual Not Detected (Not Detectd) Urine Opiates Screen Not Detected (NotDetected) Ur Oxycodone Screen Not Detected (NotDetected) Urine Methadone Screen Not Detected (NotDetected) Ur Propoxyphene Screen Not Detected (NotDetected) Ur Barbiturates Screen Not Detected (NotDetected) U Tricyclic Antidepress Not Detected (NotDetected) Ur Phencyclidine Scrn Not Detected (NotDetected) Ur Amphetamines Screen Not Detected (NotDetected) U Methamphetamines Scrn Not Detected (NotDetected) U Benzodiazepines Scrn Not Detected (NotDetected) Urine Cocaine Screen Detected H (NotDetected) U Marijuana (THC) Screen Detected H (NotDetected) Disposition Clinical Impression: Depression, Polysubstance abuse, Non-compliant behavior [facility] Condition: Stable Referrals: Lauren Denson MD [Primary Care Provider] - 1-2 days Time of Disposition: 01:53
[2017-08-04 01:12] LABS: Appearance,Urine Clear (Clear); Bilirubin,Urine Negative (Negative); Blood,Urine Negative (Negative); Color,Urine Yellow; Glucose,Urine (UA) Negative (Negative); Ketones,Urine Negative (Negative); Leukocyte Esterase,Urine Negative (Negative); Nitrite,Urine Negative (Negative); Protein,Urine Negative (Negative); Specific Gravity,Urine 1.023 (1.001-1.035); Urobilinogen,Urine <2.0 mg/dL (<2.0)
[2017-08-04] MEDS ORDERED: MAGNESIUM HYDROXIDE 2,400 MG/10 ML CUP PO PRN (01:56)
[2017-08-04 02:21] VITALS: BMI 33.8
[2017-08-04] MEDS: NICOTINE 7MG/24HR PATCH TRANSDERM SCH (09:32)
[2017-08-04] MEDS: LORazepam 1 MG TAB PO PRN ×2 (15:30→22:33)
--- NOTE | 2017-08-04 15:46 | P.MDCNMH ---
History of Present Illness H&P Date: 08/04/17 Chief Complaint: Noncompliance with medications and aggressive behaviors This is a 22-year-old female for known history of depression and polysubstance abuse who presents to the emergency department for a mental health evaluation.Patient was brought to the emergency department via [facility]. Patient was petitioned. Patient is under court order to continue taking her medications. Patient states that she has not been taking her medications for the past 2 weeks. She states that she feels she does not need them and she doesn't feel any different than when she is on the medication. Patient currently denies suicidal or homicidal ideation. Patient says that she's not feeling well.. Denies fever, chills, chest pain, shortness of breath, abdominal pain, vomiting, constipation or diarrhea, dysuria or hematuria, numbness or tingling, headache or vision changes. Patient is a very poor historian. UDS is positive for marijuana and cocaine. Review of Systems Patient is a poor historian. Complete review of systems could not be obtained from the patient. As per HPI. 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 Past Anesthesia/Blood Transfusion Reactions: No Reported Reaction Additional Past Anesthesia/Blood Transfusion Reaction / Comment(s): Patient does not believe she has had a reaction to anesthesia. Past Psychological History: Anxiety, Depression, Panic Disorder, PTSD, Schizoaffective Disorder, Schizophrenia Smoking Status: Current every day smoker Past Alcohol Use History: None Reported Additional Past Alcohol Use History / Comment(s): Patient denies any current alcohol use at this time. Past Drug Use History: Marijuana Additional Drug Use History / Comment(s): Patient states that she smokes MJ daily and smokes crack daily. - Past Family History Mother Family Medical History: No Reported History Father Family Medical History: No Reported History Additional Family Medical History / Comment(s): bipolar, sever seasonal allergies Brother(s) Family Medical History: No Reported History Sister(s) Family Medical History: No Reported History Medications and Allergies Home Medications Medication Instructions Recorded Confirmed Type Budesonide [Pulmicort Flexhaler] 2 puff INHALATION BID 08/04/17 08/04/17 History Medroxyprogesterone Acetate 150 mg IM QMONTH 08/04/17 08/04/17 History [Depo-Provera] fluPHENAZine DECANOATE [Prolixin 25 mg IM [id number] 08/04/17 08/04/17 History Decanoate] Allergies Allergy/AdvReac Type Severity Reaction Status Date / Time Penicillins Allergy Severe Anaphylaxis Verified 08/04/17 10:38 Sulfa (Sulfonamide Allergy Severe Anaphylaxis Verified 08/04/17 10:38 Antibiotics) diphenhydramine HCl Allergy Rash/Hives Verified 08/04/17 10:38 [From Benadryl] Physical Exam Vitals: Vital Signs Temp Pulse Pulse Resp BP BP Pulse Ox 08/04/17 02:13 99.3 F 106 H 18 114/71 08/04/17 01:54 98.5 F 97 18 106/53 96 08/03/17 23:48 97.0 F L 112 H 20 117/69 100 Intake and Output 08/04/17 08/04/17 08/04/17 06:59 14:59 22:59 Other: Weight 83.943 kg PHYSICAL EXAMINATION: Patient is lying in the bed comfortably, no acute distress, awake alert and oriented.. HEENT: Normocephalic. Neck is supple. Pupils reactive. Nostrils clear. Oral cavity is moist. Ears reveal no drainage. Neck reveals no JVD, carotid bruits, or thyromegaly. CHEST EXAMINATION: Trachea is central. Symmetrical expansion. Lung lovett clear to auscultation and percussion. CARDIAC: Normal S1, S2 with no gallops. No murmurs ABDOMEN: Soft. Bowel sounds normal. No organomegaly. No abdominal bruits. Extremities: reveal no edema. No clubbing or cyanosis Neurologically awake, alert, oriented x3 with well-coordinated movements. No focal deficits noted Skin: No rash or skin lesions. Psychiatric: Noncooperative. Denied suicidal ideation Musculoskeletal: No joint swelling or deformity. Normal range of motion. Cranial Nerve Examination - Cranial Nerves Cranial Nerve I- Olfactory: Intact Cranial Nerve II- Optic: Intact Cranial Nerve III- Oculomotor: Intact Cranial Nerve IV- Trochlear: Intact Cranial Nerve V- Trigeminal: Intact Cranial Nerve - Abducens: Intact Cranial Nerve VII- Facial: Intact Cranial Nerve VIII- Auditory: Intact Cranial Nerve IX- Glossopharyngeal: Intact Cranial Nerve X- Vagus: Intact Cranial Nerve XI- Accessory: Intact Cranial Nerve XII- Hypoglossal: Intact Results Labs: Abnormal Lab Results - Last 24 Hours (Table) 08/04/17 Range/Units 00:00 Urine Cocaine Screen Detected H (NotDetected) U Marijuana (THC) Screen Detected H (NotDetected) Assessment and Plan Assessment: Noncompliance with medications and was petitioned Polysubstance abuse with UDS positive for marijuana and cocaine Depression Aggressive behavior Asthma stable GERD Schizoaffective disorder Anxiety PTSD Plan: Patient will be continued on antidepressants as per psychiatric recommendations. Patient will be counseled once she is more awake and oriented. Otherwise continue the current management and further recommendations based on the clinical course. We will continue to follow closely. Thank you for your consult Time with Patient: Greater than 30
[2017-08-04] MEDS ORDERED: ZIPRASIDONE 20 MG VIAL IM ONE (15:55)
[2017-08-04] MEDS ORDERED: WATER FOR INJECTION, STERILE 10 ML IV ONE (15:55)
[2017-08-04] MEDS: ZIPRASIDONE 20 MG VIAL IM PRN (15:57)
--- NOTE | 2017-08-04 19:24 | HP ---
HISTORY AND PHYSICAL IDENTIFYING DATA: The patient is a 22-year-old female. She lives with her mother and 3 siblings. She presented to the emergency room. CHIEF COMPLAINT: The patient had not been taking her medications. She is under court order. She feels that she does not need her medications. She is disorganized and confused. HISTORY OF PRESENTING ILLNESS: The patient has long-term psychiatric issues. She has had 7 psychiatric hospitalizations at this facility since 2013. Her last hospital stay here was June 16, 2017. I refer the reader to Dr. Tejeda's admission note and other medical records for detail. According to Dr. Tejeda's documentation she had a prior admission. She was at [facility] for 27 days. She was discharged to a foster care through an alternative treatment order. When she got there, she became very distressed. She said there were just old people there and she could not relate or communicate. She called 911, making threats to walk in traffic. She became quite agitated and distressed at that time. Medications at discharge, including Prolixin Decanoate 50 mg IM q.14 days, Depakote ER 250 mg in the morning, 500 mg in the evening, doxepin 50 mg at bedtime, Zoloft 50 mg a day and Prolixin 10 mg twice a day. The patient had followup with [facility]. The patient was somewhat vague about what followup she got, though she seemed to indicate that she has not had any medications for at least several weeks. In reviewing [facility] records, it is noted that going back to 2013, she was on Risperdal Consta. In 2013, she was switched to Abilify Maintena 400 mg and Zoloft. She had a brief trial on Wellbutrin in 2014. She also was on Prozac and Seroquel in 2014, which she continued up until October 2016. She also was on Seroquel for a period of time, 100 mg a day. October 2016, she was changed to Prozac and restarted on Prolixin Decanoate 25 mg IM. According to mental health records, her last injection of Prolixin Decanoate was May 04, 2017. The patient states that she has had stress issues in her home. She also acknowledges that she has some paranoid thinking. She does not provide much information. She does not clearly give an idea of what issues may have been causing her downturn other than possibly the effect of her not taking medications. She indicated that she was sleeping poorly. She has loss of motivation, energy and interest. She has been diagnosed with schizoaffective disorder, cocaine use disorder, cannabis use disorder. She notes that she has been using marijuana on about an every other day basis and cocaine about twice a week. She is admitted for further evaluation. SUBSTANCE USE HISTORY: As above. PAST MEDICAL HISTORY AND REVIEW OF SYSTEMS: As per medical consultation of Dr. Rodrigues. FAMILY AND SOCIAL HISTORY: I refer the reader to multiple medical records from previous admissions, including June 16, 2017, April 05, 2017, April 03, 2017 and others. MENTAL STATUS EXAM: Patient was initially lying in bed and said she did not want to get up. She did not answer any questions. About 20 minutes later, she came down to the office. She sat in a stiff posture. She gave fair eye contact, though tended to look in a somewhat forward glance, which was to my side. She answered questions with brief responses. She was not spontaneous or interactive. Her affect was significantly constricted, her mood dysphoric. She seemed moderately distressed. She seemed to suggest having some paranoid thinking. On cognitive exam, the patient was oriented x3 and alert. She did make an effort to answer any formal cognitive questions. She appeared to be reasonably oriented to her current situation and immediate events. PHYSICAL EXAM: As per medical consultation of Dr. Rodrigues. ASSESSMENT: This 22-year-old female is diagnosed with schizoaffective disorder, marijuana dependence and cocaine dependence. She seems to have very limited social support and community connections. It is unclear what precipitants led to this hospitalization. Strengths include redding intelligence. Weakness includes relapsing drug and mental illness problems. RECOMMENDATIONS: Patient will be admitted for a comprehensive medical, psychiatric and psychosocial evaluation. We will engage the patient in individual and group therapeutic activities. At this point, the patient states that the medication she is most comfortable with and would be comfortable being put on would be Prolixin Decanoate. She is followed through [facility], so we will need to coordinate in regard to further treatment and discharge planning. We will focus on stabilization and followup care. MMODL / IJN: [id number] /
[2017-08-04] MEDS: traZODone HCL 50 MG TAB PO PRN (20:41)
[2017-08-05] MEDS: NICOTINE 7MG/24HR PATCH TRANSDERM SCH (08:45)
[2017-08-05] MEDS ORDERED: ZIPRASIDONE 20 MG VIAL IM ONE (09:18)
[2017-08-05] MEDS ORDERED: WATER FOR INJECTION, STERILE 10 ML IV ONE (09:18)
[2017-08-05] MEDS: ZIPRASIDONE 20 MG VIAL IM PRN (09:20)
[2017-08-05 10:54] LABS: Basophils % (A) 0 %; Eosinophils # (A) 0.2 k/uL (0-0.7); Eosinophils % (A) 3 %; HCT 37.5 % (34.0-46.0); HGB 11.8 gm/dL (11.4-16.0); Lymphocytes # (A) 1.5 k/uL (1.0-4.8); Lymphocytes % (A) 25 %; MCH 26.9 pg (25.0-35.0); MCHC 31.5 g/dL (31.0-37.0); MCV 85.5 fL (80.0-100.0); Mean Platelet Volume 8.7; Monocytes # (A) 0.4 k/uL (0-1.0); Monocytes % (A) 6 %; Neutrophils # (A) 3.9 k/uL (1.3-7.7); Neutrophils % (A) 64 %; Platelet Count 221 k/uL (150-450); RBC 4.39 m/uL (3.80-5.40); RDW 15.4 % (11.5-15.5); WBC 6.1 k/uL (3.8-10.6)
[2017-08-05 11:08] LABS: ALT 44 U/L (9-52); AST 19 U/L (14-36); Albumin 3.6 g/dL (3.5-5.0); Alkaline Phosphatase 95 U/L (38-126); Anion Gap 11 mmol/L; Blood Urea Nitrogen 11 mg/dL (7-17); Calcium 9.1 mg/dL (8.4-10.2); Carbon Dioxide 26 mmol/L (22-30); Chloride 102 mmol/L (98-107); Cholesterol 131 mg/dL (<200); Glucose 90 mg/dL (74-99); HDL Cholesterol 33 mg/dL (40-60); LDL Cholesterol,Calculated 73 mg/dL (0-99); Potassium 4.1 mmol/L (3.5-5.1); Sodium 139 mmol/L (137-145); Total Bilirubin 0.1 mg/dL (0.2-1.3); Total Protein 6.3 g/dL (6.3-8.2); Triglycerides 123 mg/dL (<150)
[2017-08-05 11:13] LABS: Valproic Acid (Depakene) <10.0 ug/mL
[2017-08-05] MEDS ORDERED: fluPHENAZine DECANOATE 25 MG/ML 5ML MDV IM ONE (13:39)
[2017-08-05] MEDS: LORazepam 1 MG TAB PO PRN (16:28)
[2017-08-05] MEDS: hydrOXYzine PAMOATE 25 MG CAP PO PRN (16:50)
[2017-08-05 18:30] LABS: Hemoglobin A1C 5.3 % (4.0-6.0)
--- NOTE | 2017-08-05 18:42 | PN ---
PROGRESS NOTE DATE OF SERVICE: 08/05/2017. CHIEF COMPLAINT: The patient had not been taking her medications. She is under court order. She feels that she does not need her medications. She is disorganized and confused. INTERVAL HISTORY: The patient has been doing better overall. She had a quiet evening last night. She slept well. Today she has been out. She wanders about the unit. She tends to walk in a very slow manner. She responds slowly. She initiated contact with me and asked when she could get started on her medications, namely her Prolixin Decanoate. Also later she approached asking if she could have some Vistaril p.r.n. for anxiety. We talked about her living situation. She is in a foster home that initially she was not comfortable with, though she now says that she is fine living there. She had made one comment that one of the reasons she did not like living there it was too far away from her mother, but then she also said when I suggested a family meeting that she does not have much contact with her mother. She has shown a little improvement in her mood. She is smiling a little. She seems more responsive to interactions. She has been reluctant to attend groups though she did attend a group this afternoon. She has not had change in her general health. She tolerates the psychotropic medications. MENTAL STATUS: Patient had a staring gaze. She had very slow stiff manner. She answered questions appropriately. Her thoughts were clear. She had a blunted affect. Her mood was quiet. It was difficult to say if she was distressed. ASSESSMENT: I will continue the current diagnosis and treatment plan. I will start the patient on Prolixin Decanoate. She will receive a 50 mg injection today. I do have some concern about extrapyramidal side effects given her manner of slow movements and masked facies. She will start on Cogentin 2 mg at bedtime. It is noteworthy that she made the statement that she needs to be on Cogentin and that previously she had received 1 mg a day which she did not think was enough. So I started the patient on Cogentin 2 mg at bedtime along with Vistaril 50 mg twice a day p.r.n. We will coordinate with [facility]. If there are a few issues that come up, we could look at discharging her early in the week back to her foster home, which is what she requests. MICL / IJN: [id number] /
[2017-08-05] MEDS: BENZTROPINE MESYLATE 1 MG TAB PO SCH (20:05)
[2017-08-05] MEDS: traZODone HCL 50 MG TAB PO PRN (20:05)
[2017-08-06] MEDS: hydrOXYzine PAMOATE 25 MG CAP PO PRN ×2 (05:07→20:11)
[2017-08-06] MEDS: NICOTINE 7MG/24HR PATCH TRANSDERM SCH (10:52)
[2017-08-06] MEDS ORDERED: HALOPERIDOL LACTATE 5 MG/ML 1 ML VIAL IM ONE (14:45)
[2017-08-06] MEDS: traZODone HCL 50 MG TAB PO PRN (20:10)
[2017-08-06] MEDS: BENZTROPINE MESYLATE 1 MG TAB PO SCH (20:10)
[2017-08-06] MEDS: cloZAPine 25 MG TAB PO SCH (20:10)
[2017-08-06] MEDS ORDERED: ZIPRASIDONE 20 MG VIAL IM ONE ×2 (23:25→23:27)
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
[2017-08-07] MEDS: NICOTINE 7MG/24HR PATCH TRANSDERM SCH (08:23)
[2017-08-07] MEDS: hydrOXYzine PAMOATE 25 MG CAP PO PRN ×2 (08:23→15:34)
[2017-08-07] MEDS: cloZAPine 25 MG TAB PO SCH ×2 (08:23→20:01)
[2017-08-07] MEDS: SYMBICORT 160-4.5 MCG INHALER INHALATION SCH ×2 (08:58→21:31)
[2017-08-07] MEDS: ACETAMINOPHEN TAB 325 MG TAB PO PRN (12:31)
[2017-08-07] MEDS: BENZOCAINE/MENTHOL LOZENG 1 EACH LOZENGE MUCOUS MEM PRN ×2 (12:49→21:59)
[2017-08-07] MEDS: HALOPERIDOL 5 MG TAB PO PRN (19:01)
--- NOTE | 2017-08-07 20:00 | PN ---
PROGRESS NOTE DATE OF SERVICE: 08/07/2017 CHIEF COMPLAINT: The patient had not been taking her medications for 2 weeks. She is under court order. She feels that she does not need her medications. She is disorganized and confused. INTERVAL HISTORY: Patient has been doing fair. She had a quiet evening last night. She said she did not sleep very well last night. She does come out. She has been on one-to-one though states to me today in a very clear way that she would not do anything to harm herself. She acknowledged that the statements she made at the family meeting were out of frustration about the idea that she had to continue on the unit for a longer period of time. She has been taking her Clozaril without any hesitation. She presented to me a court document that she may be under court-ordered treatment for substance abuse. I do not have specifics on that. She seems to have a fairly good understanding of the treatment plan that we have in place, particularly regarding her clozapine. She does not have issues with that. I have reviewed her [facility] records noting that she had been previously treated with Abilify Maintena 400 mg since 2013 up until very recently. Prior to that she had a period of time that she was on Risperdal Consta 25 mg a day. In 2015, Seroquel 50 mg a day was added. Later on in 2015 Geodon 40 mg twice a day was added. In November of 2016 she got switched from Abilify Maintena to Prolixin Decanoate 25 mg. In February of 2017 Zyprexa 20 mg was added. 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 She has not had change in her general health. She tolerates her psychotropic medications. MENTAL STATUS: Patient gave fair eye contact. Psychomotor activity was slowed. Speech was monotone. Her affect was blunted, her mood reserved. She was somewhat distressed. ASSESSMENT: I will continue the current diagnosis and treatment plan. I will continue psychotropic medications the same. We will continue to titrate up on clozapine. I will look to taper her off other psychotropics as we get to a more therapeutic range with her clozapine. We will continue to focus on stabilization and discharge planning. ERICK / ANA LUISA: [id number] /
[2017-08-07] MEDS: traZODone HCL 50 MG TAB PO PRN (20:01)
[2017-08-07] MEDS ORDERED: BENZTROPINE MESYLATE 1 MG TAB PO SCH (21:00)
[2017-08-08] MEDS: BENZOCAINE/MENTHOL LOZENG 1 EACH LOZENGE MUCOUS MEM PRN ×3 (05:32→19:52)
[2017-08-08] MEDS ORDERED: ONDANSETRON ODT 8 MG TAB.RAPDIS PO STA (05:36)
[2017-08-08] MEDS: NICOTINE 7MG/24HR PATCH TRANSDERM SCH (08:25)
[2017-08-08] MEDS: cloZAPine 25 MG TAB PO SCH ×2 (08:26→20:19)
[2017-08-08] MEDS: SYMBICORT 160-4.5 MCG INHALER INHALATION SCH ×2 (09:35→20:47)
[2017-08-08] MEDS: MAG HYDROX/AL HYDROX/SIMETH 30 ML CUP PO PRN (12:31)
--- NOTE | 2017-08-08 15:31 | PN ---
PROGRESS NOTE DATE OF SERVICE: 08/08/2017 CHIEF COMPLAINT: The patient had not been taking her medications for 2 weeks. She is under court order. She feels that she does not need medications. She is disorganized and confused. INTERVAL HISTORY: Patient has been doing fair. She had a quiet evening that night. She reports sleeping well last night. Today, she has been up and about. She called [facility] today and is set up for an admission at [facility] for substance use treatment. She sees that as a positive for her. She reports no problems with the start of her Clozaril. She says that she is motivated to move away from abusive substances. She has been attending groups. She does not interact too much with others. She has not had change in her general health. She tolerates his psychotropic medications. MENTAL STATUS: Patient gave fair eye contact. Psychomotor activity was slowed. Speech is monotone. She answered questions with brief responses. Her affect is blunted. Her mood reserved. Difficult to say if she was distressed at all. ASSESSMENT: I will continue the current diagnosis and treatment plan. I will continue to titrate up on clozapine. Tomorrow she will go up to 100 mg twice a day. I will then begin switching her majority of Clozaril towards bedtime. We are setting up plans for her to transfer to [facility] for inpatient substance abuse treatment. I will make some additional changes in her medication. I will discontinue trazodone and discontinue Cogentin. ERICK / ANA LUISA: [id number] /
[2017-08-08] MEDS: hydrOXYzine PAMOATE 25 MG CAP PO PRN (20:10)
[2017-08-08] MEDS: HALOPERIDOL 5 MG TAB PO PRN (20:21)
[2017-08-09] MEDS: NICOTINE 7MG/24HR PATCH TRANSDERM SCH (08:37)
[2017-08-09] MEDS: cloZAPine 25 MG TAB PO SCH (08:37)
[2017-08-09] MEDS: BENZOCAINE/MENTHOL LOZENG 1 EACH LOZENGE MUCOUS MEM PRN ×3 (08:38→22:13)
[2017-08-09] MEDS: SYMBICORT 160-4.5 MCG INHALER INHALATION SCH ×3 (08:56→18:58)
[2017-08-09] MEDS ORDERED: cloZAPine 25 MG TAB PO SCH (09:00)
[2017-08-09] MEDS: ACETAMINOPHEN TAB 325 MG TAB PO PRN ×2 (12:39→18:34)
[2017-08-09] MEDS: MAG HYDROX/AL HYDROX/SIMETH 30 ML CUP PO PRN ×2 (12:40→20:17)
[2017-08-09] MEDS: hydrOXYzine PAMOATE 25 MG CAP PO PRN (18:35)
[2017-08-09] MEDS: IPRATROPIUM-ALBUTEROL 3 ML NEB INHALATION SCH (18:58)
[2017-08-09] MEDS ORDERED: LEVOFLOXACIN 500 MG TAB PO SCH (19:00)
[2017-08-09] MEDS: LEVOFLOXACIN 500 MG TAB PO SCH (19:14)
--- NOTE | 2017-08-09 19:16 | XR ---
EXAMINATION TYPE: XR chest 1V DATE OF EXAM: 08/09/2017 COMPARISON: 08/03/2017 HISTORY: Cough TECHNIQUE: Single frontal view of the chest is obtained. FINDINGS: Heart and mediastinum are normal. Lungs are clear. Diaphragm is normal. Bony thorax appear s normal. IMPRESSION: Normal chest. No change.
[2017-08-09 19:21] LABS: Basophils % (A) 0 %; Eosinophils # (A) 0.2 k/uL (0-0.7); Eosinophils % (A) 3 %; HCT 37.9 % (34.0-46.0); HGB 12.5 gm/dL (11.4-16.0); Lymphocytes # (A) 2.3 k/uL (1.0-4.8); Lymphocytes % (A) 36 %; MCH 27.4 pg (25.0-35.0); MCV 83.1 fL (80.0-100.0); Mean Platelet Volume 8.6; Monocytes # (A) 0.3 k/uL (0-1.0); Monocytes % (A) 4 %; Neutrophils # (A) 3.6 k/uL (1.3-7.7); Neutrophils % (A) 55 %; Platelet Count 208 k/uL (150-450); RBC 4.56 m/uL (3.80-5.40); RDW 15.4 % (11.5-15.5); WBC 6.5 k/uL (3.8-10.6)
[2017-08-09 19:44] LABS: Anion Gap 12 mmol/L; Blood Urea Nitrogen 10 mg/dL (7-17); Carbon Dioxide 21 mmol/L (22-30); Chloride 109 mmol/L (98-107); Glucose 125 mg/dL (74-99); Potassium 4.2 mmol/L (3.5-5.1); Sodium 142 mmol/L (137-145)
--- NOTE | 2017-08-09 20:02 | PN ---
PROGRESS NOTE DATE OF SERVICE: 08/09/2017 CHIEF COMPLAINT: The patient had not been taking medications for 2 weeks. She is under court order. She feels she does not need medications. She was disorganized and confused. INTERVAL HISTORY: Patient has been doing fair. She had a quiet evening last night. She slept fairly well. Today she has been up and about. She comes out in the day area. She tends to wander at times. She does not interact too much with others. She keeps to herself. She is quite reluctant to attend groups. She has some focus about the idea of going to substance use treatment. She hopes that she can be discharged by Sunday, though she understands that everything needs to be set up for her clozapine therapy as part of the plan for her followup. She has some complaint of chest pain today. Her vital signs revealed a blood pressure of 120/70 with pulse 129, respirations 18. I encouraged her to take a Vistaril and then we will recheck her vital signs. She has been cooperative. She takes medications appropriately. She has not had other changes in her general health. She tolerates his psychotropic medications. MENTAL STATUS: Patient gave a staring gaze. Eye contact was slowed. Speech was monotone. She answered questions with brief responses. Her affect was blunted, her mood reserved. It was difficult to say if she was distressed. ASSESSMENT: I will continue the current diagnosis and treatment plan. We will continue to titrate up on Clozaril. By Sunday her dose will be 50 mg in the morning, 275 mg in the evening. We will get a chest x-ray, given that she has had the ongoing sinus problems and feels some tightness in her chest. We will continue to focus on stabilization and discharge planning. MMODL / IJN: [id number] /
[2017-08-09] MEDS: HALOPERIDOL 5 MG TAB PO PRN (20:12)
[2017-08-09] MEDS ORDERED: cloZAPine 100 MG TAB PO SCH (21:00)
[2017-08-10] MEDS: NICOTINE 7MG/24HR PATCH TRANSDERM SCH (08:31)
[2017-08-10] MEDS: cloZAPine 25 MG TAB PO SCH (08:32)
[2017-08-10] MEDS ORDERED: cloZAPine 100 MG TAB PO SCH ×3 (09:00→21:00)
[2017-08-10] MEDS: SYMBICORT 160-4.5 MCG INHALER INHALATION SCH ×3 (09:51→22:45)
[2017-08-10] MEDS: IPRATROPIUM-ALBUTEROL 3 ML NEB INHALATION SCH ×4 (09:51→22:45)
[2017-08-10] MEDS: MAG HYDROX/AL HYDROX/SIMETH 30 ML CUP PO PRN ×2 (11:46→21:09)
[2017-08-10] MEDS: hydrOXYzine PAMOATE 25 MG CAP PO PRN (13:38)
--- NOTE | 2017-08-10 15:48 | PN ---
PROGRESS NOTE DATE OF SERVICE: 08/10/2017 CHIEF COMPLAINT: The patient had not been taking medications for 2 weeks. She is under court order. She feels that she does not need medications. She was disorganized and confused. INTERVAL HISTORY: Patient has been doing fair. She had a quiet evening last night. She slept fair. Today she has been up. She did have some complaint of dizziness yesterday, though it is not clear what the issues were with that. When she did have complaint of dizziness staff checked vital signs, which were all within normal limits. She has not seemed to continue to have complaints in that direction. She has intermittently run a high pulse. She gets herself around the unit. She does not interact too much with others. She attends groups sporadically. She has not had change in her general health. She appears to tolerate her psychotropic medications and the titration of Clozaril. MENTAL STATUS: Patient gave fair eye contact. Psychomotor activity was slow. Speech was monotone. Her thoughts are clear, her affect blunted, her mood quiet. She did not appear to be significantly distressed. ASSESSMENT: I will continue the current diagnosis and treatment plan. We continue to titrate up on Clozaril. Her dose will be 225 mg starting on Sunday. She understands that the plan is for transfer to the substance use program [facility] on Sunday. We will continue to focus on stabilization and discharge planning. ERICK / ANA LUISA: [id number] /
[2017-08-10] MEDS: LEVOFLOXACIN 500 MG TAB PO SCH (18:10)
[2017-08-10] MEDS: ACETAMINOPHEN TAB 325 MG TAB PO PRN (20:03)
[2017-08-10] MEDS: BENZOCAINE/MENTHOL LOZENG 1 EACH LOZENGE MUCOUS MEM PRN (20:04)
[2017-08-10] MEDS: HALOPERIDOL 5 MG TAB PO PRN (20:05)
[2017-08-10] MEDS: ONDANSETRON 4 MG TAB PO PRN (23:18)
[2017-08-10] MEDS: cloNIDine HCL 0.1 MG TAB PO SCH (23:20)
[2017-08-11] MEDS: PANTOPRAZOLE 40 MG TABLET PO SCH (08:29)
[2017-08-11] MEDS: NICOTINE 7MG/24HR PATCH TRANSDERM SCH (08:30)
[2017-08-11] MEDS: cloZAPine 25 MG TAB PO SCH ×2 (08:32→20:42)
[2017-08-11] MEDS: cloNIDine HCL 0.1 MG TAB PO SCH ×2 (08:32→20:42)
--- NOTE | 2017-08-11 09:07 | PN ---
PROGRESS NOTE DATE OF SERVICE: 08/10/2017 This 22-year-old woman was admitted for psychiatric evaluation also had history of significant history of drug withdrawal. The patient is complaining of vomiting as well as tachycardia. No chest pain. No palpitations. No fever. PHYSICAL EXAM: Alert and oriented x3. The pulse is 147, blood pressure 120/58, respirations 16 , temperature 98.2, pulse ox normal. HEENT: Oral mucosa moist. Neck is no jugular venous distention. Cardiovascular system: S1, S2 muffled. No S3, no S4. Respiratory: Breath sounds diminished in the bases. No rhonchi. No crackles. ABDOMEN: Soft, nontender. Legs are no edema. Central nervous system: No focal deficits. LABORATORY DATA: CBC within normal limits and glucose 125, 33. Drug screen is positive for cocaine and marijuana. ASSESSMENT: 1. Nausea, vomiting, possible acute gastritis. 2. Tachycardia. 3. Possible withdrawal syndrome. 4. History of polysubstance abuse. 5. History of depression. 6. History of asthma. 7. Gastroesophageal reflux disease. 9. History of schizoaffective disorder and PTSD. RECOMMENDATIONS AND DISCUSSION: In this 22-year-old woman who presented with multiple complex medical issues, we will monitor the patient closely, continue the current medications, symptomatic treatment. Otherwise, I would recommend Protonix and Zofran p.r.n., clonidine. Otherwise , I would recommend continue the symptomatic treatment and we will be happy to review any other abnormality. Advise continued compliance and as well follow up with the primary physician. We will follow the patient closely. MMODL / IJN: [id number] / SIMÓN
[2017-08-11] MEDS: IPRATROPIUM-ALBUTEROL 3 ML NEB INHALATION SCH ×4 (10:11→21:19)
[2017-08-11] MEDS: SYMBICORT 160-4.5 MCG INHALER INHALATION SCH ×2 (10:11→21:19)
[2017-08-11] MEDS: hydrOXYzine PAMOATE 25 MG CAP PO PRN (12:24)
[2017-08-11] MEDS: LEVOFLOXACIN 500 MG TAB PO SCH (18:38)
[2017-08-11] MEDS: ONDANSETRON 4 MG TAB PO PRN (19:11)
[2017-08-11] MEDS: BENZOCAINE/MENTHOL LOZENG 1 EACH LOZENGE MUCOUS MEM PRN (19:12)
--- NOTE | 2017-08-11 19:40 | PN ---
PROGRESS NOTE DATE OF SERVICE: 08/11/2017. INTERVAL HISTORY: Patient is seen in cross coverage today for Dr. Chavez. She states that she has been having some issues with throwing up. Said she threw up twice last night. She just feels nauseated today, but has not thrown up. She does state that she is eating. She seems to relate that her family was dealing with the virus. She does feel like she has made progress here and feels like her medications are doing well for her. Her mood is improved overall but tired. MENTAL STATUS EXAM: She is alert, cooperative, not showing any agitation. Her affect is restricted. She described her mood as overall improved but tired. She denies any thoughts of harm to self or others. She denies any auditory or visual hallucinations. She does not show any agitation. PLAN: We will maintain current psychotropic medications as ordered. We will monitor for any medication side effects. Monitor her ongoing response. Continue to cover the patient for Dr. Chavez through the weekend. MMODL / IJN: [id number] /
[2017-08-11] MEDS: cloZAPine 100 MG TAB PO SCH (20:41)
[2017-08-11] MEDS: HALOPERIDOL 5 MG TAB PO PRN (20:42)
[2017-08-12] MEDS: SYMBICORT 160-4.5 MCG INHALER INHALATION SCH ×2 (09:16→21:40)
[2017-08-12] MEDS: IPRATROPIUM-ALBUTEROL 3 ML NEB INHALATION SCH ×4 (09:16→21:40)
[2017-08-12] MEDS: PANTOPRAZOLE 40 MG TABLET PO SCH ×2 (12:03→18:40)
[2017-08-12] MEDS: NICOTINE 7MG/24HR PATCH TRANSDERM SCH (12:03)
[2017-08-12] MEDS: cloZAPine 25 MG TAB PO SCH ×2 (12:04→20:03)
[2017-08-12] MEDS: cloNIDine HCL 0.1 MG TAB PO SCH ×2 (12:06→20:03)
[2017-08-12] MEDS: ONDANSETRON 4 MG TAB PO PRN (12:34)
[2017-08-12] MEDS: ACETAMINOPHEN TAB 325 MG TAB PO PRN ×2 (16:03→19:17)
[2017-08-12] MEDS: SODIUM CHLORIDE 0.9% 1,000 ML IV SCH (17:30)
[2017-08-12 17:39] LABS: Basophils % (A) 1 %; Eosinophils # (A) 0.2 k/uL (0-0.7); Eosinophils % (A) 2 %; HCT 36.6 % (34.0-46.0); Lymphocytes # (A) 2.3 k/uL (1.0-4.8); Lymphocytes % (A) 28 %; MCH 27.4 pg (25.0-35.0); MCHC 32.7 g/dL (31.0-37.0); MCV 83.9 fL (80.0-100.0); Mean Platelet Volume 8.3; Monocytes # (A) 0.3 k/uL (0-1.0); Monocytes % (A) 4 %; Neutrophils # (A) 5.3 k/uL (1.3-7.7); Neutrophils % (A) 64 %; Platelet Count 245 k/uL (150-450); RBC 4.37 m/uL (3.80-5.40); RDW 15.1 % (11.5-15.5); WBC 8.2 k/uL (3.8-10.6)
[2017-08-12 17:54] LABS: ALT 53 U/L (9-52); AST 22 U/L (14-36); Albumin 3.5 g/dL (3.5-5.0); Alkaline Phosphatase 101 U/L (38-126); Anion Gap 11 mmol/L; Blood Urea Nitrogen 11 mg/dL (7-17); Calcium 9.1 mg/dL (8.4-10.2); Carbon Dioxide 22 mmol/L (22-30); Chloride 108 mmol/L (98-107); Glucose 137 mg/dL (74-99); Potassium 4.5 mmol/L (3.5-5.1); Sodium 141 mmol/L (137-145); Total Bilirubin <0.1 mg/dL (0.2-1.3); Total Protein 6.3 g/dL (6.3-8.2)
[2017-08-12 18:11] LABS: HCG,Quantitative Serum <2.4 mIU/mL
[2017-08-12] MEDS: LEVOFLOXACIN 500 MG TAB PO SCH (19:16)
[2017-08-12] MEDS: cloZAPine 100 MG TAB PO SCH (20:02)
[2017-08-12] MEDS ORDERED: NON-FORMULARY DRUG (Budesonide [Pulmicort Flexhaler] 2 PUFF) INHALATION SCH (21:00)
--- NOTE | 2017-08-12 21:05 | PN ---
PROGRESS NOTE DATE OF SERVICE: 08/12/2017. INTERVAL HISTORY: Patient describes that she has been having nausea today. No vomiting and no diarrhea. If anything, a little constipation. She has been started on some IV fluids. She has been taking her psychotropic medications. She has been eating. MENTAL STATUS EXAM: She is alert, cooperative. Her affect is restricted. Her mood is described as all right. She denies any thoughts of harm to self or others. She does not verbalize any hallucinations. She does not show any agitation during the session. PLAN: We will maintain current psychotropic medications. Continue to monitor her for any side effects and her ongoing response. We will have medical followup regarding some complaints of ongoing nausea. MMODL / IJN: [id number] /
[2017-08-12 23:20] LABS: Erythrocyte Sedimentation Rate 24 mm/hr (0-20)
[2017-08-13] MEDS: SODIUM CHLORIDE 0.9% 1,000 ML IV SCH (06:14)
[2017-08-13] MEDS: cloZAPine 25 MG TAB PO SCH ×2 (08:47→20:06)
[2017-08-13] MEDS: cloNIDine HCL 0.1 MG TAB PO SCH ×2 (08:49→20:07)
[2017-08-13] MEDS: IPRATROPIUM-ALBUTEROL 3 ML NEB INHALATION SCH ×4 (09:31→21:24)
[2017-08-13] MEDS: SYMBICORT 160-4.5 MCG INHALER INHALATION SCH ×2 (09:31→21:24)
[2017-08-13] MEDS: NICOTINE 7MG/24HR PATCH TRANSDERM SCH (12:19)
[2017-08-13] MEDS: PANTOPRAZOLE 40 MG TABLET PO SCH ×3 (12:19→18:24)
[2017-08-13] MEDS: LEVOFLOXACIN 500 MG TAB PO SCH (18:24)
[2017-08-13] MEDS: BENZOCAINE/MENTHOL LOZENG 1 EACH LOZENGE MUCOUS MEM PRN (18:26)
[2017-08-13] MEDS: cloZAPine 100 MG TAB PO SCH (20:07)
--- NOTE | 2017-08-13 22:45 | PN ---
PROGRESS NOTE DATE OF SERVICE: 08/13/2017. CHIEF COMPLAINT: The patient had not been taking medications for 2 weeks. She is under court order. She feels she does not need medications. She was disorganized and confused. INTERVAL HISTORY: The patient has been doing fairly well. She had a quiet evening last night. She slept well. Today she has been up. She comes out in the day area. She does tend to wander about. She will interact a little with others. She spends a fair amount of time on the telephone. She seems fairly animated when she is talking on the phone. She says that her mother visited yesterday and felt that she seemed to be doing better overall. She is reluctant to attend groups. She has had complaint of some dizziness. She did receive IV fluids for dehydration. She seems to be doing better in that regard. She has not had other change in her general health. She tolerates psychotropic medications. MENTAL STATUS: Patient gave good eye contact. Psychomotor activity was slowed. Speech was monotone. She answered questions with brief responses. Her affect was blunted. Her mood reserved. It was difficult to say if she was distressed. ASSESSMENT: I will continue the current diagnosis and treatment plan. I will continue psychotropic medications the same. I will order clozapine level for the morning. We will continue to focus on stabilization and discharge planning. We anticipate discharging the patient Sunday to a substance treatment program. ERICK / ANA LUISA: [id number] /
[2017-08-14] MEDS: NICOTINE 7MG/24HR PATCH TRANSDERM SCH (08:26)
[2017-08-14] MEDS: cloZAPine 25 MG TAB PO SCH ×2 (08:26→20:24)
[2017-08-14] MEDS: PANTOPRAZOLE 40 MG TABLET PO SCH ×3 (08:26→17:18)
[2017-08-14] MEDS: IPRATROPIUM-ALBUTEROL 3 ML NEB INHALATION SCH ×4 (10:10→20:54)
[2017-08-14] MEDS: SYMBICORT 160-4.5 MCG INHALER INHALATION SCH ×2 (10:10→20:54)
--- NOTE | 2017-08-14 17:16 | PN ---
PROGRESS NOTE DATE OF SERVICE: 08/14/2017 CHIEF COMPLAINT: The patient had not been taking medications for 2 weeks. She is under court order. She does not feel she needs medication. She was disorganized and confused. INTERVAL HISTORY: Patient has been doing fairly well. She had a quiet evening last night. She slept well. Today she has been up and about. She comes out in the day area. She wanders about. She is not too inclined to go to group sessions. We did talk about the idea that groups are pretty much the basis for her going into a treatment program that she will be going to tomorrow. In general the patient feels that she has made progress. Her mood is fairly even. Her thoughts are clear. She reports no issues or concerns with discharge planning. She has not had change in her general health. She tolerates her psychotropic medications. MENTAL STATUS: Patient gave fair eye contact. Psychomotor activity was slowed. Speech was monotone. She answered questions with brief responses. Her affect was blunted, mood reserved. She did not appear to be distressed. ASSESSMENT: I will continue the current diagnosis and treatment plan. Will continue psychotropic medications the same. We will plan discharge tomorrow for admission to her substance use program. MMODL / JAMESN: [id number] /
[2017-08-14] MEDS: cloZAPine 100 MG TAB PO SCH (20:24)
[2017-08-14 21:10] LABS: Basophils % (A) 1 %; Eosinophils # (A) 0.2 k/uL (0-0.7); Eosinophils % (A) 2 %; HCT 38.5 % (34.0-46.0); HGB 12.7 gm/dL (11.4-16.0); Lymphocytes # (A) 2.4 k/uL (1.0-4.8); Lymphocytes % (A) 28 %; MCH 27.5 pg (25.0-35.0); MCHC 32.9 g/dL (31.0-37.0); MCV 83.4 fL (80.0-100.0); Monocytes # (A) 0.3 k/uL (0-1.0); Monocytes % (A) 4 %; Neutrophils # (A) 5.5 k/uL (1.3-7.7); Neutrophils % (A) 64 %; Platelet Count 270 k/uL (150-450); RBC 4.62 m/uL (3.80-5.40); RDW 14.1 % (11.5-15.5); WBC 8.6 k/uL (3.8-10.6)
[2017-08-14 21:18] LABS: Anion Gap 12 mmol/L; Blood Urea Nitrogen 15 mg/dL (7-17); Calcium 9.1 mg/dL (8.4-10.2); Carbon Dioxide 22 mmol/L (22-30); Chloride 109 mmol/L (98-107); Glucose 126 mg/dL (74-99); Sodium 143 mmol/L (137-145)
[2017-08-14 21:35] LABS: HCG,Quantitative Serum <2.4 mIU/mL
[2017-08-14] MEDS: ACETAMINOPHEN TAB 325 MG TAB PO PRN (21:55)
[2017-08-15 04:50] VITALS: BP 105/54; PULSE 113; RESP 18
[2017-08-15] MEDS: cloZAPine 25 MG TAB PO SCH (08:12)
[2017-08-15] MEDS: PANTOPRAZOLE 40 MG TABLET PO SCH (08:12)
[2017-08-15] MEDS: NICOTINE 7MG/24HR PATCH TRANSDERM SCH (08:13)
[2017-08-15 08:30] LABS: Clozapine (Clozaril) 750 ng/mL (200-700); Norclozapine 390 ng/mL (200-700)
[2017-08-15] MEDS: IPRATROPIUM-ALBUTEROL 3 ML NEB INHALATION SCH (08:53)
[2017-08-15] MEDS: SYMBICORT 160-4.5 MCG INHALER INHALATION SCH (08:53)
[2017-08-15 09:39] VITALS: TEMP 98.6
--- NOTE | 2017-08-15 10:23 | DS ---
DISCHARGE SUMMARY DATE OF SERVICE: 08/15/2017 DATE OF ADMISSION: 08/04/2017 DATE OF DISCHARGE: 08/15/2017 ADMISSION AND DISCHARGE DIAGNOSES: 1. Schizoaffective disorder. 2. Marijuana dependence. 3. Cocaine dependence. 4. Asthma. 5. Gastroesophageal reflux disease. HISTORY OF PRESENT ILLNESS: The patient is a 22-year-old female. She had not been taking her medication. She was under court order. She was disorganized and confused. She had 7 psychiatric hospitalizations at this facility since 2013 with the last being June 16, 2017. She also had a 27 day admission to [facility] prior to the May admission. She is followed by [facility]. Medications from her last hospitalization included Prolixin Decanoate 50 mg IM q.2 weeks, Depakote ER 250 mg in the morning, 500 mg in the evening, doxepin 50 mg at bedtime, Zoloft 50 mg a day and Prolixin 10 mg a day. She had past trials of a Risperdal Consta, Abilify Maintena, Seroquel along with other psychotropics. She was inconsistent in her followup. She had been discharged to a foster care outside of [facility] because of problem she had where she would walk away from foster homes, get involved in bad situations in the community that often involved drugs and high risk behavior. In her last situation, she used the excuse of needing to go to the hospital to get into town and then she had no place to live. She ended up in the last 2 weeks residing with her mother. Her mother indicates that she has had a long history of very self defeating and dangerous behavior. She has had intermittent drug use. She was admitted for further evaluation. PAST MEDICAL HISTORY AND PHYSICAL EXAM: As per Dr. Rodrigues. MENTAL STATUS EXAM: The patient was very reluctant to answer questions. She had a stiff posture. Eye contact was fair. She gave brief responses. Her affect was quite constricted. Her mood dysphoric. She was moderately distressed. She had paranoid thinking. Cognition was clear. COURSE OF HOSPITALIZATION: Patient was admitted for comprehensive medical psychiatric and psychosocial evaluation. We engaged the patient in individual and group therapeutic activities. On admission, the patient was continued on her previous medications, which included receiving an injection of Prolixin Decanoate. She was quite withdrawn. She had a very flat affect. She had stiffness in her movements and masked facies with her showing little facial expression. We set up a meeting with her mother. Mother indicated that the patient has had long-term problems with very difficult behavior. She had engaged in dangerous means to make money in order to get drugs. She struggled with being able to engage in any kind of constructive treatment process. She has persistent problems with thought disorder including prominent paranoia along with auditory hallucinations. She has had suicidal behaviors. We elected to start the patient on clozapine. The indication for clozapine was 1) Treatment resistant schizophrenia and 2) Persistent suicidal behavior in schizophrenia and schizoaffective disorder. The patient was titrated up to a dose of 325 mg a day. She tolerated her medication fairly well. A clozapine blood level on 08/14 was 750/390. As her hospitalization progressed, the patient seemed to function a little better. Overall, she tended to have a quiet manner. She would come out in the day area. She would interact some with others. She tended to be reluctant to attend groups. She was cooperative with care. She was able to engage in discharge planning. She agreed with the discharge plans of going to a substance use program upon discharge. She was tapered off her other oral psychotropic medications and continued just on the clozapine. She did have some occasional episodes of dizziness, which were felt to be due to dehydration. Fluids were encouraged. Overall her mood improved through the course of her hospitalization. CONDITION AT DISCHARGE: Patient was stable. Mood was improved. She tolerated her medications well. She was cooperative. RECOMMENDATIONS AND FOLLOWUP: The patient is discharged to [facility] use program with an intake today at 12 noon. Discharge medications include: Clozapine 50 mg in the morning, 275 mg in the evening as her only psychotropic medication. She is also discharged on Protonix 40 mg twice a day, Symbicort p.r.n., and Depo-Provera. MMODL / IJN: [id number] /
== END 2017-08-15 09:28 | disposition home or self-care (01) | DRG 885 ==
LOC: EC 23:30 → 3MHU 08-04 01:45
PROVIDERS: ADMIT Psychiatry & Neurology Psychiatry; ATTEND Psychiatry & Neurology Psychiatry
DX: F25.9 Schizoaffective disorder, unspecified (principal); F11.20 Opioid dependence, uncomplicated; F14.20 Cocaine dependence, uncomplicated; F12.20 Cannabis dependence, uncomplicated; R45.1 Restlessness and agitation; J45.909 Unspecified asthma, uncomplicated; K21.9 Gastro-esophageal reflux disease without esophagitis; E66.9 Obesity, unspecified; F17.200 Nicotine dependence, unspecified, uncomplicated; F43.10 Post-traumatic stress disorder, unspecified; F41.0 Panic disorder [episodic paroxysmal anxiety]; R00.0 Tachycardia, unspecified; K29.00 Acute gastritis without bleeding; F32.9 Major depressive disorder, single episode, unspecified; E86.0 Dehydration; F22 Delusional disorders; Z79.899 Other long term (current) drug therapy; Z79.1 Long term (current) use of non-steroidal anti-inflammatories (NSAID); Z88.0 Allergy status to penicillin; Z88.2 Allergy status to sulfonamides; Z88.8 Allergy status to other drugs, medicaments and biological substances; Z87.442 Personal history of urinary calculi; Z87.19 Personal history of other diseases of the digestive system; Z87.820 Personal history of traumatic brain injury; Z91.19 Patient's noncompliance with other medical treatment and regimen
CPT/HCPCS: 71045; 80048; 80053; 80061; 80159; 80164; 80306; 81003; 81025; 82075; 83036; 83605; 84443; 84702; 85025; 85652; 87502; 93005; 94640; 99285

== ENCOUNTER 2018-02-11 19:54 | Emergency (ER) | payer OTHER ==
[2018-02-11] MEDS ORDERED: IBUPROFEN 600 MG TAB PO STA (20:33)
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
[2018-02-11 21:42] LABS: Urn Cannabinoid Scrn Detected (NotDetected)
[2018-02-11 21:44] LABS: Amphetamine Screen,Urine Detected (NotDetected); Barbiturate Screen,Urine Not Detected (NotDetected); Benzodiazepines Screen,Urine Not Detected (NotDetected); Cocaine Screen,Urine Detected (NotDetected); Methadone Screen, Urine Not Detected (NotDetected); Opiate Screen,Urine Not Detected (NotDetected); Oxycodone Screen, Urine Not Detected (NotDetected); Phencyclidine Screen,Urine Not Detected (NotDetected); Tricyclic Antidepressant,Urine Not Detected (NotDetected)
[2018-02-12 04:09] LABS: Basophils % (A) 0 %; Eosinophils # (A) 0.3 k/uL (0-0.7); Eosinophils % (A) 4 %; HCT 37.5 % (34.0-46.0); HGB 12.4 gm/dL (11.4-16.0); Lymphocytes % (A) 37 %; MCH 27.4 pg (25.0-35.0); MCHC 33.1 g/dL (31.0-37.0); MCV 82.7 fL (80.0-100.0); Mean Platelet Volume 8.8; Monocytes # (A) 0.5 k/uL (0-1.0); Monocytes % (A) 7 %; Neutrophils # (A) 4.2 k/uL (1.3-7.7); Neutrophils % (A) 51 %; Platelet Count 225 k/uL (150-450); RBC 4.54 m/uL (3.80-5.40); RDW 14.4 % (11.5-15.5); WBC 8.2 k/uL (3.8-10.6)
[2018-02-12 04:10] LABS: Appearance,Urine Cloudy (Clear); Bilirubin,Urine Negative (Negative); Blood,Urine Large (Negative); Calcium Oxalate Crystals,Urine Moderate /hpf; Color,Urine Light Red; Glucose,Urine (UA) Negative (Negative); Hyaline Casts,Urine 13 /lpf (0-2); Ketones,Urine Trace (Negative); Leukocyte Esterase,Urine Trace (Negative); Mucus,Urine Many /hpf; Nitrite,Urine Negative (Negative); Protein,Urine 2+ (Negative); RBC,Urine >182 /hpf (0-5); Specific Gravity,Urine 1.033 (1.001-1.035); Squamous Epithelial Cell,Urine 3 /hpf (0-4); WBC,Urine 15 /hpf (0-5)
[2018-02-12 04:19] LABS: ALT 39 U/L (9-52); AST 29 U/L (14-36); Albumin 3.7 g/dL (3.5-5.0); Alkaline Phosphatase 85 U/L (38-126); Anion Gap 7 mmol/L; Blood Urea Nitrogen 14 mg/dL (7-17); Calcium 8.8 mg/dL (8.4-10.2); Carbon Dioxide 22 mmol/L (22-30); Chloride 111 mmol/L (98-107); Glucose 103 mg/dL (74-99); Potassium 4.2 mmol/L (3.5-5.1); Sodium 140 mmol/L (137-145); Total Bilirubin 0.1 mg/dL (0.2-1.3); Total Protein 6.2 g/dL (6.3-8.2)
[2018-02-12 05:19] VITALS: PULSE 71
[2018-02-12 14:06] VITALS: BP 110/63; RESP 16; TEMP 98.2
== END 2018-02-12 14:07 ==
LOC: EC 19:54
DX: S01.511A Laceration without foreign body of lip, initial encounter (principal); K08.89 Other specified disorders of teeth and supporting structures; F20.9 Schizophrenia, unspecified; J45.909 Unspecified asthma, uncomplicated; E66.9 Obesity, unspecified; Z68.41 Body mass index [BMI] 40.0-44.9, adult; F32.9 Major depressive disorder, single episode, unspecified; F41.0 Panic disorder [episodic paroxysmal anxiety]; F43.10 Post-traumatic stress disorder, unspecified; F39 Unspecified mood [affective] disorder; F17.200 Nicotine dependence, unspecified, uncomplicated; Z79.51 Long term (current) use of inhaled steroids; Z79.899 Other long term (current) drug therapy; Z88.0 Allergy status to penicillin; Z88.2 Allergy status to sulfonamides; Z88.8 Allergy status to other drugs, medicaments and biological substances; Y08.89XA Assault by other specified means, initial encounter
CPT/HCPCS: 36415; 80053; 80306; 81001; 81025; 82075; 85025; 99285

== ENCOUNTER 2018-03-08 15:47 | Emergency (ER) | payer OTHER ==
[2018-03-08 15:56] VITALS: RESP 18
[2018-03-08] MEDS ORDERED: ONDANSETRON ODT 4 MG TAB PO STA (16:08)
--- NOTE | 2018-03-08 16:10 | ED ---
General Adult HPI - General Chief complaint: Alcohol Stated complaint: MENTAL HEALTH - OVERDOSE Time Seen by Provider: 03/08/18 16:00 Source: EMS, RN notes reviewed, old records reviewed Mode of arrival: EMS Limitations: no limitations - History of Present Illness Initial comments: Patient is a 23-year-old female presenting to the emergency room today with chief complaint of symptoms of nausea. Patient does admit that she woke up at 5 AM this morning and began drinking. She states she had a few beers with a "four loco". Patient states that a friend gave her 2 tabs of [place]. She states she took these and she fell asleep. She states that she woke up approximately 2 and half hours ago and was feeling nauseated. She states she had one episode of vomiting. Patient admits to mild headache. She denies any other complaints or symptoms. Patient denies any recent fever, chills, shortness of breath, chest pain, back pain, abdominal pain, headaches or visual changes, or any other complaints. - Related Data Home Medications Medication Instructions Recorded Confirmed Benztropine Mesylate [Cogentin] 1 mg PO BID 02/11/18 03/08/18 Budesonide [Pulmicort Flexhaler] 2 puff INHALATION RT-BID 02/11/18 03/08/18 Cholecalciferol [Vitamin D3] 5,000 unit PO DAILY 02/11/18 03/08/18 Divalproex ER [Depakote ER] 1,500 mg PO HS 02/11/18 03/08/18 Docusate [Colace] 100 mg PO BID 02/11/18 03/08/18 [place] Unknown Dose 2 tab PO DIRECTED PRN 03/08/18 03/08/18 hydrOXYzine PAMOATE [Vistaril] 50 mg PO TID 03/08/18 03/08/18 Previous Rx's Medication Instructions Recorded cloZAPine [Clozaril] 200 mg PO HS #7 tab 08/15/17 Ondansetron Odt [Zofran ODT] 4 mg PO Q8HR PRN #10 tab 03/08/18 Allergies Allergy/AdvReac Type Severity Reaction Status Date / Time Penicillins Allergy Severe Anaphylaxis Verified 03/08/18 16:05 Sulfa (Sulfonamide Allergy Severe Anaphylaxis Verified 03/08/18 16:05 Antibiotics) diphenhydramine HCl Allergy Rash/Hives Verified 03/08/18 16:05 [From Benadryl] Review of Systems ROS Statement: Those systems with pertinent positive or pertinent negative responses have been documented in the HPI. ROS Other: All systems not noted in ROS Statement are negative. 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 Past Anesthesia/Blood Transfusion Reactions: No Reported Reaction Additional Past Anesthesia/Blood Transfusion Reaction / Comment(s): Patient does not believe she has had a reaction to anesthesia. Past Psychological History: Anxiety, Depression, Panic Disorder, PTSD, Schizoaffective Disorder, Schizophrenia Smoking Status: Current every day smoker Past Alcohol Use History: None Reported Past Drug Use History: Marijuana, Opiates - Past Family History Mother Family Medical History: No Reported History Father Family Medical History: No Reported History Additional Family Medical History / Comment(s): bipolar, sever seasonal allergies Brother(s) Family Medical History: No Reported History Sister(s) Family Medical History: No Reported History General Exam - General Exam Comments Initial Comments: General: The patient is awake and alert, in no distress, and does not appear acutely ill. Eye: Pupils are equal, round and reactive to light, extra-ocular movements are intact. No nystagmus. There is normal conjunctiva bilaterally. No signs of icterus. Ears, nose, mouth and throat: There are moist mucous membranes and no oral lesions. Neck: The neck is supple, there is no tenderness or JVD. Cardiovascular: There is a regular rate and rhythm. No murmur, rub or gallop is appreciated. Respiratory: Lungs are clear to auscultation, respirations are non-labored, breath sounds are equal. No wheezes, stridor, rales, or rhonchi. Musculoskeletal: Normal ROM, no tenderness. Sensation intact. Neurological: A&O x 3. CN II-XII intact, There are no obvious motor or sensory deficits. Coordination appears grossly intact. Speech is normal. Skin: Skin is warm and dry and no rashes or lesions are noted. Psychiatric: Cooperative. Limitations: no limitations Course Vital Signs 03/08/18 15:50 Temperature 97.8 F Pulse Rate 90 Respiratory 18 Rate Blood Pressure 94/52 O2 Sat by Pulse 95 Oximetry Medical Decision Making - Medical Decision Making Patient reexamined at this time shows no signs of distress. Patient has had no nausea vomiting here the emergency room was given nausea medication. She is feeling much better. Patient has been able to emergency room. Patient does have a legal guardian who was notified he states that patient may walk home. Patient will be discharged with prescription for nausea medication. She is advised return if any symptoms increase or worsen or for any other concerns. Disposition Clinical Impression: Nausea & vomiting Disposition: HOME SELF-CARE Condition: Good Instructions: Acute Nausea and Vomiting (ED) Additional Instructions: Please use medication as discussed. Please follow-up with family doctor in the next 2 days of symptoms have not improved. Please return to emergency room if the symptoms increase or worsen or for any other concerns. Prescriptions: Ondansetron Odt [Zofran ODT] 4 mg PO Q8HR PRN #10 tab PRN Reason: Nausea Is patient prescribed a controlled substance at d/c from ED?: No Referrals: Ezra Fisher MD [Primary Care Provider] - 1-2 days Time of Disposition: 16:49
[2018-03-08 17:02] VITALS: BP 112/59; PULSE 96; TEMP 98.6
== END 2018-03-08 17:02 | disposition home or self-care (01) ==
LOC: EC 15:47
DX: R11.2 Nausea with vomiting, unspecified (principal); R51 Headache; J45.909 Unspecified asthma, uncomplicated; F32.9 Major depressive disorder, single episode, unspecified; F41.9 Anxiety disorder, unspecified; E66.9 Obesity, unspecified; F17.200 Nicotine dependence, unspecified, uncomplicated; Z79.51 Long term (current) use of inhaled steroids; Z79.899 Other long term (current) drug therapy; Z88.0 Allergy status to penicillin; Z88.2 Allergy status to sulfonamides; Z88.8 Allergy status to other drugs, medicaments and biological substances; Z68.41 Body mass index [BMI] 40.0-44.9, adult
CPT/HCPCS: 99284

== ENCOUNTER 2018-03-21 13:44 | Inpatient (IN) | payer MEDICAID, OTHER ==
[2018-03-21 14:30] LABS: Amphetamine Screen,Urine Not Detected (NotDetected); Barbiturate Screen,Urine Not Detected (NotDetected); Benzodiazepines Screen,Urine Not Detected (NotDetected); Cocaine Screen,Urine Not Detected (NotDetected); Methadone Screen, Urine Not Detected (NotDetected); Opiate Screen,Urine Not Detected (NotDetected); Oxycodone Screen, Urine Not Detected (NotDetected); Phencyclidine Screen,Urine Not Detected (NotDetected); Tricyclic Antidepressant,Urine Not Detected (NotDetected); Urn Cannabinoid Scrn Not Detected (NotDetected)
--- NOTE | 2018-03-21 14:39 | ED ---
General Adult HPI - General Chief complaint: Psychiatric Symptoms Stated complaint: mental health Source: patient Mode of arrival: ambulatory Limitations: no limitations - History of Present Illness Initial comments: Dictation was produced using [employer] dictation software. please excuse any grammatical, word or spelling errors. Chief Complaint: 23-year-old female past medical history of depression and schizophrenia presents with law enforcement for picker operator order. History of Present Illness: Medical history of psychiatric disease. She was sent here via law enforcement by her guardian named Avtar. According to patient she was sent here because she was not taking her psychiatric medications. Denies any suicidal or homicidal ideation. Denies any visual or auditory hallucinations. The ROS documented in this emergency department record has been reviewed and confirmed by me. Those systems with pertinent positive or negative responses have been documented in the HPI. All other systems are other negative and/or noncontributory. - Related Data Home Medications Medication Instructions Recorded Confirmed Benztropine Mesylate [Cogentin] 1 mg PO BID 02/11/18 03/22/18 Budesonide [Pulmicort Flexhaler] 2 puff INHALATION RT-BID 02/11/18 03/22/18 Cholecalciferol [Vitamin D3] 5,000 unit PO DAILY 02/11/18 03/22/18 Divalproex ER [Depakote ER] 1,500 mg PO HS 02/11/18 03/22/18 Docusate [Colace] 100 mg PO BID 02/11/18 03/22/18 hydrOXYzine PAMOATE [Vistaril] 50 mg PO TID 03/08/18 03/22/18 Previous Rx's Medication Instructions Recorded cloZAPine [Clozaril] 200 mg PO HS #7 tab 08/15/17 Allergies Allergy/AdvReac Type Severity Reaction Status Date / Time Penicillins Allergy Severe Anaphylaxis Verified 03/22/18 04:51 Sulfa (Sulfonamide Allergy Severe Anaphylaxis Verified 03/22/18 04:51 Antibiotics) diphenhydramine HCl Allergy Rash/Hives Verified 03/22/18 04:51 [From Benadryl] Review of Systems ROS Statement: Those systems with pertinent positive or pertinent negative responses have been documented in the HPI. ROS Other: All systems not noted in ROS Statement are negative. 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 Past Anesthesia/Blood Transfusion Reactions: No Reported Reaction Additional Past Anesthesia/Blood Transfusion Reaction / Comment(s): Patient does not believe she has had a reaction to anesthesia. Past Psychological History: Anxiety, Depression, Panic Disorder, PTSD, Schizoaffective Disorder, Schizophrenia Smoking Status: Current every day smoker Past Alcohol Use History: None Reported Past Drug Use History: Marijuana, Opiates - Past Family History Mother Family Medical History: No Reported History Father Family Medical History: No Reported History Additional Family Medical History / Comment(s): bipolar, sever seasonal allergies Brother(s) Family Medical History: No Reported History Sister(s) Family Medical History: No Reported History General Exam - General Exam Comments Initial Comments: \ PHYSICAL EXAM: General Impression: Alert and oriented x3, not in acute distress HEENT: Normocephalic atraumatic, extra-ocular movements intact, pupils equal and reactive to light bilaterally, mucous membranes moist. Cardiovascular: Heart regular rate and rhythm, S1&S2 audible, no murmurs, rubs or gallops Chest: Lungs clear to auscultation bilaterally, no rhonchi, no wheeze, no rales Abdomen: Bowel sounds present, abdomen soft, non-tender, non-distended, no organomegaly Musculoskeletal: Pulses present and equal in all extremities, no peripheral edema Motor: Power 5/5 bilaterally, no focal deficits noted Neurological: CN II-XII grossly intact, no focal motor or sensory deficits noted Skin: Intact with no visualized rashes Psych: Flat affect Limitations: no limitations Course Vital Signs 03/21/18 03/21/18 13:49 18:41 Temperature 98.3 F 98.0 F Pulse Rate 78 77 Respiratory 16 16 Rate Blood Pressure 125/79 128/70 O2 Sat by Pulse 97 98 Oximetry Medical Decision Making - Medical Decision Making \ ED course: 23-year-old female presents for picker operator order. Patient was allegedly not taking her medications as prescribed. She does have extensive psychiatric history. Vital signs upon arrival are without any abnormalities. Patient not suicidal homicidal. No signs to suggest psychosis. EPS nurse consultation given extensive history of psychiatric disease. Blood alcohol test is negative. Patient cleared for EPS evaluation. Patient is signed out to oncoming physician for follow-up of EPS recommendations and final disposition planning. - Lab Data Result diagrams: 03/22/18 16:16 03/22/18 16:15 Lab Results 03/21/18 03/21/18 Range/Units 14:03 14:03 Urine HCG, Qual Not Detected (Not Detectd) Urine Opiates Screen Not Detected (NotDetected) Ur Oxycodone Screen Not Detected (NotDetected) Urine Methadone Screen Not Detected (NotDetected) Ur Propoxyphene Screen Not Detected (NotDetected) Ur Barbiturates Screen Not Detected (NotDetected) U Tricyclic Antidepress Not Detected (NotDetected) Ur Phencyclidine Scrn Not Detected (NotDetected) Ur Amphetamines Screen Not Detected (NotDetected) U Methamphetamines Scrn Not Detected (NotDetected) U Benzodiazepines Scrn Not Detected (NotDetected) Urine Cocaine Screen Not Detected (NotDetected) U Marijuana (THC) Screen Not Detected (NotDetected) Disposition Clinical Impression: Psychosis Disposition: ADMITTED IP TO THIS [facility] Condition: Good Decision Time: 10:37
[2018-03-21] MEDS ORDERED: MAGNESIUM HYDROXIDE 2,400 MG/10 ML CUP PO PRN (19:24)
[2018-03-21] MEDS ORDERED: LORazepam 2 MG/ML INJ IM PRN (19:28)
[2018-03-21] MEDS: LORazepam 1 MG TAB PO PRN (20:02)
[2018-03-21] MEDS: DOCUSATE 100 MG CAP PO SCH (20:02)
--- NOTE | 2018-03-22 06:52 | P.MDCNMH ---
History of Present Illness H&P Date: 03/21/18 Chief Complaint: Asthma 23-year-old female with history of dyslipidemia and asthma Patient was brought into the hospital in order by the police due to noncompliance with medications and outpatient visits she has a public guardian. Patient admits to polysubstance abuse however she claims that last time she used cocaine was 9 months ago, she continues to use marijuana sporadically however urine drug screen was negative Patient has history of asthma she denies any history of intubation, she uses her inhalers daily, she denies using the inhalers at night. She does not recall the last time she visited the ED for asthma complications. Otherwise patient denies any other medical concerns, denies any fevers chills, denies shortness of breath or chest pain, denies any headache nausea or vomiting , denies any changes in bowel habits, denies any GI bleeding Review of Systems Pertinent positives as noted in HPI. 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 Past Anesthesia/Blood Transfusion Reactions: No Reported Reaction Additional Past Anesthesia/Blood Transfusion Reaction / Comment(s): Patient does not believe she has had a reaction to anesthesia. Past Psychological History: Anxiety, Depression, Panic Disorder, PTSD, Schizoaffective Disorder, Schizophrenia Smoking Status: Current every day smoker Past Alcohol Use History: None Reported Past Drug Use History: Marijuana, Opiates - Past Family History Mother Family Medical History: No Reported History Father Family Medical History: No Reported History Additional Family Medical History / Comment(s): bipolar, sever seasonal allergies Brother(s) Family Medical History: No Reported History Sister(s) Family Medical History: No Reported History Medications and Allergies Home Medications Medication Instructions Recorded Confirmed Type cloZAPine [Clozaril] 200 mg PO HS #7 tab 08/15/17 03/22/18 Rx Benztropine Mesylate [Cogentin] 1 mg PO BID 02/11/18 03/22/18 History Budesonide [Pulmicort Flexhaler] 2 puff INHALATION RT-BID 02/11/18 03/22/18 History Cholecalciferol [Vitamin D3] 5,000 unit PO DAILY 02/11/18 03/22/18 History Divalproex ER [Depakote ER] 1,500 mg PO HS 02/11/18 03/22/18 History Docusate [Colace] 100 mg PO BID 02/11/18 03/22/18 History hydrOXYzine PAMOATE [Vistaril] 50 mg PO TID 03/08/18 03/22/18 History Allergies Allergy/AdvReac Type Severity Reaction Status Date / Time Penicillins Allergy Severe Anaphylaxis Verified 03/22/18 04:51 Sulfa (Sulfonamide Allergy Severe Anaphylaxis Verified 03/22/18 04:51 Antibiotics) diphenhydramine HCl Allergy Rash/Hives Verified 03/22/18 04:51 [From Benadryl] Physical Exam Vitals: Vital Signs Temp Pulse Pulse Resp BP BP Pulse Ox 03/21/18 19:27 97.0 F L 76 16 99/67 03/21/18 18:41 98.0 F 77 16 128/70 98 03/21/18 13:49 98.3 F 78 16 125/79 97 Intake and Output 03/21/18 03/21/18 03/21/18 06:59 14:59 22:59 Other: Weight 100.698 kg Patient refuses to be examined, the interview was done in the presence of RN Cranial Nerve Examination - Cranial Nerves Cranial Nerve I- Olfactory: Intact (System forces me to make selection physical exam was not done as patient refused) Cranial Nerve II- Optic: Intact Cranial Nerve III- Oculomotor: Intact Cranial Nerve IV- Trochlear: Intact Cranial Nerve V- Trigeminal: Intact Cranial Nerve - Abducens: Intact Cranial Nerve VII- Facial: Intact Cranial Nerve VIII- Auditory: Intact Cranial Nerve IX- Glossopharyngeal: Intact Cranial Nerve X- Vagus: Intact Cranial Nerve XI- Accessory: Intact Cranial Nerve XII- Hypoglossal: Intact Assessment and Plan Assessment: 23-year-old female with history of schizophrenia and asthma was brought to the hospital by police upon pickup order due to noncompliance with medication and follow ups. Medicine was consulted for medical management currently patient has no medical concerns. Plan: Schizophrenia Noncompliance Mild persistent asthma Continue management per psych Albuterol inhaler when necessary Patient is ambulatory low risk for DVT Follow-up labs Thank you for allowing us to participate in the care of this patient. We will follow peripherally. Do not hesitate to contact us with questions. Someone can be reached from the [facility] hospitalist group at all hours of the day at [phone].
[2018-03-22] MEDS: DOCUSATE 100 MG CAP PO SCH ×2 (10:49→20:13)
[2018-03-22] MEDS: NICOTINE 7MG/24HR PATCH TRANSDERM SCH ×2 (10:49→14:03)
[2018-03-22] MEDS: CHOLECALCIFEROL 1,000 UNIT TAB PO SCH ×2 (12:08→14:02)
[2018-03-22] MEDS: hydrOXYzine PAMOATE 25 MG CAP PO PRN ×2 (14:03→20:48)
[2018-03-22] MEDS: MAG HYDROX/AL HYDROX/SIMETH 30 ML CUP PO PRN ×2 (14:06→18:42)
--- NOTE | 2018-03-22 14:29 | P.HP ---
Psychiatric H&P - . H&P Date: 03/22/18 History & Physical: IDENTIFYING DATA: The patient is a 23-year-old single female admitted to the psychiatric unit involuntarily under a Pickup Order and Notification of Noncompliance. HISTORY OF PRESENT ILLNESS: The patient would not cooperate with the initial assessment. She refused to get out of bed, make eye contact or answer questions. This information is from our medical records and the medical records from [facility] and [facility]. [facility] submitted a Notification of Noncompliance because she she eloped from her AF home about 2 weeks prior to admission did not keep her scheduled appointment with Dr. Peck on 2017. She has a long history of mental illness and at least 14 admissions to this psychiatric unit; the last was in July 2017 and her discharge diagnoses included schizoaffective disorder, marijuana dependence, cocaine dependence, asthma and gastroesophageal reflux disease. According to the records from [facility], since her last discharge from our unit she has been hospitalized at [facility] and [facility] in January and December 2017 respectively. Her diagnoses from the [facility] include schizoaffective disorder bipolar type and borderline personality disorder. Her psychotropic medications include clozapine 200 mg at bedtime, Cogentin 1 mg twice a day, Depakote ER 1500 mg at bedtime and Vistaril 50 mg 3 times a day when necessary for anxiety. Later in the day she voluntarily came to my office. She stated that [facility] admitted her because she missed her appointment on Sunday and was dismissed from her AF home. She stated that she was asked to leave the [facility] home because she left without arthritis leave on several occasions. She stated that when she left the AF home she came to [place] to spend time with her mother. She asked if she could be discharged to the care of her mother because she cannot return to another [facility] home and [facility] is recommending that she be discharged to a usp. PAST PSYCHIATRIC HISTORY: She is chronically and severely mentally ill and has multiple psychiatric hospitalizations at least [facility] to [facility] including multiple admissions to other psychiatric facilities in [place]. She is on a one-year involuntary treatment order due to recurrent problems with compliance. She is enrolled with both [facility] and [facility]. PAST MEDICAL HISTORY: According to record she has a history of asthma and gastroesophageal disease.. ALLERGIES: Penicillins, sulfa, diphenhydramine. SUBSTANCE USE HISTORY: She is a history of use of cocaine, methamphetamine, marijuana and opiates. Her records note recurrent problems with cocaine. Her urine drug screen on presentation to our psychiatric unit was negative. FAMILY PSYCHIATRIC/SUBSTANCE USE HISTORY: According to the record her father had history of bipolar disorder mother had history of PTSD. LEGAL HISTORY: Unknown. SOCIAL HISTORY: According to record she is the youngest of 4 children I her biological parents. Her parents when she was 2 years old. Her mother remarried and had 3 additional children. She did not graduate from high school but received a GED. She is currently unemployed and receives Social Security income.. MENTAL STATUS EXAM: She presented as a disheveled appearing and uncooperative young female. She was laying in bed. She would not make eye contact or answer questions. She was angry and irritable. STRENGTHS: Good physical health, strong [facility] mental health support. WEAKNESSES: Poor compliance with mental health treatment, recurrent substance use problems Allergies Allergy/AdvReac Type Severity Reaction Status Date / Time Penicillins Allergy Severe Anaphylaxis Verified 03/22/18 04:51 Sulfa (Sulfonamide Allergy Severe Anaphylaxis Verified 03/22/18 04:51 Antibiotics) diphenhydramine HCl Allergy Rash/Hives Verified 03/22/18 04:51 [From Benadryl] Vital Signs Temp 97.0 F L 03/21/18 19:27 Pulse 69 03/21/18 20:03 Resp 16 03/21/18 19:27 BP 110/60 03/21/18 20:03 Pulse Ox 98 03/21/18 18:41 Intake & Output 03/21/18 03/22/18 03/22/18 18:59 06:59 18:59 Weight 100.698 kg Laboratory Last Values Urine HCG, Qual Not Detected (Not Detectd) 03/21/18 14:03 Urine Opiates Screen Not Detected (NotDetected) 03/21/18 14:03 Ur Oxycodone Screen Not Detected (NotDetected) 03/21/18 14:03 Urine Methadone Screen Not Detected (NotDetected) 03/21/18 14:03 Ur Propoxyphene Screen Not Detected (NotDetected) 03/21/18 14:03 Ur Barbiturates Screen Not Detected (NotDetected) 03/21/18 14:03 U Tricyclic Antidepress Not Detected (NotDetected) 03/21/18 14:03 Ur Phencyclidine Scrn Not Detected (NotDetected) 03/21/18 14:03 Ur Amphetamines Screen Not Detected (NotDetected) 03/21/18 14:03 U Methamphetamines Scrn Not Detected (NotDetected) 03/21/18 14:03 U Benzodiazepines Scrn Not Detected (NotDetected) 03/21/18 14:03 Urine Cocaine Screen Not Detected (NotDetected) 03/21/18 14:03 U Marijuana (THC) Screen Not Detected (NotDetected) 03/21/18 14:03 03/22/18 10:05 03/22/18 11:46 03/22/18 12:01 03/22/18 14:25 Assessment and Plan Assessment: She is 22-year-old single female who is chronically and severely mentally ill. She is under a one-year involuntary treatment order due to recurrent and persistent noncompliance. She presented to [facility] involuntarily under a Notice of Noncompliance after eloping from her AF home and not keeping a schedule to community mental health appointment. She has a history of psychostimulant abuse/dependence; her admission UDS was negative for amphetamines and cocaine however. She should be treated inpatient basis with a combination of psychopharmacology and multimodal therapy. We will resume her outpatient psychotropic medications as prescribed by [facility] mental health. (1) Cocaine use disorder, mild, in early remission Current Visit: Yes Status: Chronic Priority: Medium Code(s): F14.11 - COCAINE ABUSE, IN REMISSION SNOMED Code(s): 69309193 (2) Asthma Current Visit: Yes Status: Chronic Priority: Low Code(s): J45.909 - UNSPECIFIED ASTHMA, UNCOMPLICATED SNOMED Code(s): 566239195 (3) Non-compliant behavior Current Visit: No Status: Chronic Priority: High Code(s): R46.89 - OTHER SYMPTOMS AND SIGNS INVOLVING APPEARANCE AND BEHAVIOR SNOMED Code(s): 455169169 (4) Schizoaffective disorder Current Visit: No Status: Chronic Priority: Medium Code(s): F25.9 - SCHIZOAFFECTIVE DISORDER, UNSPECIFIED SNOMED Code(s): 10332907 Plan: Admit to the psychiatric unit under care of this show card writer. Consult medicine for initial physical exam and medical history. Management of medical illness as per the recommendations of the medicine technical sales consultant. welfare worker to complete the psychosocial assessment and assist with aftercare and residential placement. Restart clozapine 12.5 mg by mouth twice a day and titrate as tolerated to the preadmission dose of 200 mg daily, Vistaril 50 mg 3 times a day when necessary for anxiety and Depakote ER 500 mg at bedtime and titrate to the preadmission dose of 1500 mg daily. Discontinue oral lorazepam but continue IM lorazepam and IM Geodon (for agitation). Obtain CBC with differential weekly. Encourage participation in therapeutic groups and activities. Evaluate clinical status response to treatment on a daily basis.
[2018-03-22 16:26] LABS: Basophils % (A) 1 %; Eosinophils # (A) 0.2 k/uL (0-0.7); Eosinophils % (A) 2 %; HCT 40.8 % (34.0-46.0); HGB 12.8 gm/dL (11.4-16.0); Lymphocytes % (A) 27 %; MCH 26.9 pg (25.0-35.0); MCHC 31.4 g/dL (31.0-37.0); MCV 85.7 fL (80.0-100.0); Mean Platelet Volume 8.5; Monocytes # (A) 0.4 k/uL (0-1.0); Monocytes % (A) 5 %; Neutrophils # (A) 4.9 k/uL (1.3-7.7); Neutrophils % (A) 65 %; Platelet Count 198 k/uL (150-450); RBC 4.76 m/uL (3.80-5.40); RDW 14.2 % (11.5-15.5); WBC 7.5 k/uL (3.8-10.6)
[2018-03-22] MEDS: NICOTINE POLACRILEX 2 MG GUM BUCCAL PRN ×2 (16:30→20:14)
[2018-03-22 16:46] LABS: ALT 62 U/L (9-52); AST 30 U/L (14-36); Alkaline Phosphatase 99 U/L (38-126); Anion Gap 6 mmol/L; Blood Urea Nitrogen 9 mg/dL (7-17); Calcium 9.6 mg/dL (8.4-10.2); Carbon Dioxide 25 mmol/L (22-30); Chloride 105 mmol/L (98-107); Cholesterol 164 mg/dL (<200); Glucose 90 mg/dL (74-99); HDL Cholesterol 38 mg/dL (40-60); LDL Cholesterol,Calculated 82 mg/dL (0-99); Potassium 4.3 mmol/L (3.5-5.1); Sodium 136 mmol/L (137-145); Total Bilirubin 0.3 mg/dL (0.2-1.3); Total Protein 6.8 g/dL (6.3-8.2); Triglycerides 218 mg/dL (<150)
[2018-03-22] MEDS: LORazepam 1 MG TAB PO PRN (18:41)
[2018-03-22] MEDS: cloZAPine 25 MG TAB PO SCH (20:12)
[2018-03-22] MEDS: ACETAMINOPHEN TAB 325 MG TAB PO PRN (20:48)
[2018-03-23 04:09] LABS: Hemoglobin A1C 5.1 % (4.0-6.0)
[2018-03-23] MEDS: hydrOXYzine PAMOATE 25 MG CAP PO PRN ×3 (08:34→21:21)
[2018-03-23] MEDS: cloZAPine 25 MG TAB PO SCH ×2 (08:34→20:48)
[2018-03-23] MEDS: DIVALPROEX ER 500 MG TAB.ER.24H PO SCH (08:34)
[2018-03-23] MEDS: DOCUSATE 100 MG CAP PO SCH ×2 (08:36→19:51)
[2018-03-23] MEDS: CHOLECALCIFEROL 1,000 UNIT TAB PO SCH (13:12)
[2018-03-23] MEDS: ACETAMINOPHEN TAB 325 MG TAB PO PRN ×2 (13:53→20:49)
[2018-03-23] MEDS: NICOTINE POLACRILEX 2 MG GUM BUCCAL PRN ×2 (13:55→21:21)
[2018-03-23] MEDS: LORazepam 1 MG TAB PO PRN ×2 (14:03→20:49)
[2018-03-23] MEDS: MAG HYDROX/AL HYDROX/SIMETH 30 ML CUP PO PRN (16:30)
[2018-03-23] MEDS: FLUTICASONE 110 MCG INHALER INHALATION SCH ×3 (20:58→21:49)
--- NOTE | 2018-03-23 21:23 | P.PN ---
Progress Note - Text Progress Note Date: 03/23/18 IDENTIFICATION DATA [age]-year-old woman with schizoaffective disorder admitted to the psychiatric unit involuntarily under a Pickup Order and Notification of Noncompliance. INTERVAL HISTORY: She reports being complaint with medications. No side effects reported. She states the medication helps her with hearing voices. She reports going to some groups but not all. She reports good sleep and appetite. MENTAL STATUS EXAMINATION: Patient is 23 year old woman appears in fair l grooming and hygiene. speech and thought process are limited. mood is euthymic and affect flat. denies current auditory or visual hallucinations. denies paranoia. is alert and oriented X 4. insight and judgment are limited. denies current suicidal or homicidal ideations. ASSESSMENT AND PLAN: Continue current treatment.
[2018-03-23] MEDS ORDERED: ZIPRASIDONE 20 MG VIAL IM ONE (22:22)
[2018-03-23] MEDS ORDERED: WATER FOR INJECTION, STERILE 10 ML IV ONE (22:22)
[2018-03-23] MEDS: ZIPRASIDONE 20 MG VIAL IM PRN (22:30)
[2018-03-24] MEDS: FLUTICASONE 110 MCG INHALER INHALATION SCH ×3 (00:47→20:40)
[2018-03-24] MEDS: DIVALPROEX ER 500 MG TAB.ER.24H PO SCH (08:28)
[2018-03-24] MEDS: cloZAPine 25 MG TAB PO SCH ×2 (08:28→20:09)
[2018-03-24] MEDS: DOCUSATE 100 MG CAP PO SCH ×2 (08:29→20:11)
[2018-03-24] MEDS: hydrOXYzine PAMOATE 25 MG CAP PO PRN ×3 (08:30→22:04)
[2018-03-24] MEDS: CHOLECALCIFEROL 1,000 UNIT TAB PO SCH (13:11)
[2018-03-24] MEDS: LORazepam 1 MG TAB PO PRN ×2 (13:13→20:09)
[2018-03-24] MEDS: NICOTINE POLACRILEX 2 MG GUM BUCCAL PRN (15:01)
--- NOTE | 2018-03-24 15:11 | P.PN ---
Progress Note - Text Progress Note Date: 03/24/18 IDENTIFICATION DATA 23-year-old woman with schizoaffective disorder admitted to the psychiatric unit involuntarily under a Pickup Order and Notification of Noncompliance. INTERVAL HISTORY: patient has received geodon injection last night due to self reports of hearing voices telling her to kill herself. She reports to have slept well after receiving geodon injection. She denies current auditory or visual hallucinations. She denies current symptoms of depression. She reports good appetite. She reports going some of the groups. She reports pacing the floors at times. She is complaint with medications. No side effects reported. She claims to have moved to her mother s home in [place] two weeks ago from a [facility]. She claims to have left all her medications at the [facility]. She currently states she needs her medications to help her with her symptoms. MENTAL STATUS EXAMINATION: Patient is 23 year old woman appears in fair grooming and hygiene. speech and thought process are goal directed. mood is euthymic and affect flat. denies current auditory or visual hallucinations. denies paranoia. is alert and oriented X 4. insight and judgment are improving. denies current suicidal or homicidal ideations. ASSESSMENT AND PLAN: Will increase the dose of claozaril from 12.5mg po bid to 25mg po bid. Continue her current medications Monitor for symptoms Continue all precautions Encourage participation in all groups
[2018-03-24] MEDS: MAG HYDROX/AL HYDROX/SIMETH 30 ML CUP PO PRN (18:47)
[2018-03-24] MEDS: ACETAMINOPHEN TAB 325 MG TAB PO PRN (20:10)
[2018-03-25] MEDS: ZIPRASIDONE 20 MG VIAL IM PRN (01:43)
[2018-03-25] MEDS: ALBUTEROL INHALER 60 PUFF/8 GM INHALER INHALATION PRN (01:59)
[2018-03-25] MEDS: DOCUSATE 100 MG CAP PO SCH ×2 (09:27→20:20)
[2018-03-25] MEDS: DIVALPROEX ER 500 MG TAB.ER.24H PO SCH (09:27)
[2018-03-25] MEDS: cloZAPine 25 MG TAB PO SCH ×2 (09:27→20:19)
[2018-03-25] MEDS: hydrOXYzine PAMOATE 25 MG CAP PO PRN ×2 (09:27→20:20)
[2018-03-25] MEDS: FLUTICASONE 110 MCG INHALER INHALATION SCH ×2 (09:47→21:10)
--- NOTE | 2018-03-25 10:56 | P.PN ---
Progress Note - Text Interval history: The patient is found in her room in bed. She refuses to follow me to an interview room despite 2 separate attempts being made to speak with her. Staff report that the patient's been staying her room throughout the morning. She has been compliant with medication. The psychiatric evaluation and subsequent progress notes were reviewed. She is being restarted on her Clozaril and we will need to titrate that over the course of this week. She is known to this inpatient service and carries a diagnosis of schizoaffective disorder in the context of substance use disorders. Mental status exam: The patient is in bed she is alert she provides a few brief verbal responses. She appears to be in no acute distress. She does not participate further in the mental status exam. Plan: The patient will continue on her current psychotropic medication. Vital signs reviewed lab work reviewed. We will continue to monitor her for safety. She requires continued psychiatric hospitalization to stabilize her symptoms of psychosis.
[2018-03-25] MEDS: CHOLECALCIFEROL 1,000 UNIT TAB PO SCH (13:13)
[2018-03-25] MEDS: ACETAMINOPHEN TAB 325 MG TAB PO PRN ×2 (13:15→18:28)
[2018-03-25] MEDS: MAG HYDROX/AL HYDROX/SIMETH 30 ML CUP PO PRN ×2 (15:37→23:17)
[2018-03-25] MEDS: NICOTINE POLACRILEX 2 MG GUM BUCCAL PRN ×2 (16:41→21:25)
[2018-03-25 17:50] LABS: Appearance,Urine Clear (Clear); Bilirubin,Urine Negative (Negative); Blood,Urine Negative (Negative); Color,Urine Yellow; Glucose,Urine (UA) Negative (Negative); Ketones,Urine Negative (Negative); Leukocyte Esterase,Urine Negative (Negative); Nitrite,Urine Negative (Negative); Protein,Urine Negative (Negative); Specific Gravity,Urine 1.013 (1.001-1.035); Urobilinogen,Urine <2.0 mg/dL (<2.0)
[2018-03-25] MEDS: LORazepam 1 MG TAB PO PRN (22:30)
[2018-03-25] MEDS ORDERED: LORazepam 1 MG TAB PO STA (23:59)
[2018-03-26] MEDS: ACETAMINOPHEN TAB 325 MG TAB PO PRN ×2 (00:08→19:44)
[2018-03-26 01:55] LABS: Creatine Kinase MB 0.3 ng/mL (0.0-2.4); Troponin I <0.012 ng/mL (0.000-0.034)
[2018-03-26] MEDS: hydrOXYzine PAMOATE 25 MG CAP PO PRN ×3 (07:55→23:02)
[2018-03-26] MEDS: DIVALPROEX ER 500 MG TAB.ER.24H PO SCH (07:56)
[2018-03-26] MEDS: cloZAPine 25 MG TAB PO SCH (07:56)
[2018-03-26] MEDS: DOCUSATE 100 MG CAP PO SCH ×2 (07:56→19:59)
[2018-03-26] MEDS: FLUTICASONE 110 MCG INHALER INHALATION SCH ×2 (09:14→21:07)
--- NOTE | 2018-03-26 11:19 | P.PN ---
Progress Note - Text Interval history: The patient is found in her room she follows me to an interview room. She states that she is taking her medication and would like to be discharged. She states she feels that she can go to her mother's home. In treatment team however the opinion was that the patient will most likely require a half-way placement. The patient does have a public guardian. The patient admits that she was off of her claws role for approximately 2 weeks. She has no questions regarding the medication and is willing to continue taking the medication. She has been attending some groups in the afternoon. Mental status exam: The patient is a morbidly obese female appearing her stated age. She seated calmly. Eye contact is intermittent speech is fluent spontaneous nonpressured. She has a flat affect. She is reporting no auditory or visual hallucinations. She is reporting no suicidal or homicidal ideation. She is likely underreporting symptoms to facilitate a discharge. Insight and judgment limited. She demonstrates no abnormal involuntary movements she demonstrated no verbal or physical aggressiveness. Plan: The patient will continue on the Clozaril we will titrate to 100 mg at bedtime. We will monitor for safety and encourage full participation milieu. Vital signs reviewed. We will continue monitoring white blood count and absolute neutrophil count. We will await placement recommendation.
[2018-03-26] MEDS: CHOLECALCIFEROL 1,000 UNIT TAB PO SCH (12:19)
[2018-03-26] MEDS: NICOTINE POLACRILEX 2 MG GUM BUCCAL PRN ×3 (12:20→21:42)
[2018-03-26] MEDS: LORazepam 1 MG TAB PO PRN (13:54)
[2018-03-26] MEDS: ZIPRASIDONE 20 MG VIAL IM PRN (15:26)
[2018-03-26] MEDS: MAG HYDROX/AL HYDROX/SIMETH 30 ML CUP PO PRN (17:38)
[2018-03-26] MEDS: cloZAPine 100 MG TAB PO SCH (19:59)
[2018-03-26] MEDS ORDERED: IBUPROFEN 600 MG TAB PO PRN (21:10)
[2018-03-26] MEDS: NAPROXEN 250 MG TAB PO PRN (21:40)
[2018-03-26] MEDS: ONDANSETRON ODT 4 MG TAB PO PRN (21:40)
[2018-03-27] MEDS: LORazepam 1 MG TAB PO PRN ×2 (00:34→20:19)
[2018-03-27] MEDS: ACETAMINOPHEN TAB 325 MG TAB PO PRN (00:34)
[2018-03-27] MEDS: ONDANSETRON ODT 4 MG TAB PO PRN ×2 (07:54→17:44)
[2018-03-27] MEDS: NAPROXEN 250 MG TAB PO PRN ×2 (07:55→20:19)
[2018-03-27] MEDS: NICOTINE POLACRILEX 2 MG GUM BUCCAL PRN ×2 (08:59→11:49)
[2018-03-27] MEDS: DOCUSATE 100 MG CAP PO SCH ×2 (08:59→20:17)
[2018-03-27] MEDS: DIVALPROEX ER 500 MG TAB.ER.24H PO SCH (08:59)
[2018-03-27] MEDS: FLUTICASONE 110 MCG INHALER INHALATION SCH ×3 (09:22→20:42)
[2018-03-27] MEDS: ALBUTEROL INHALER 60 PUFF/8 GM INHALER INHALATION PRN ×2 (09:22→15:48)
--- NOTE | 2018-03-27 09:26 | P.PN ---
Progress Note - Text Interval history: The patient is found in the dining room she follows me to an interview room. She states her mood is fine she is primarily focused on being discharged. She continues to insist she can stay with her mother until he skilled nursing but is found. We reviewed her current psychotropic medications. She reports having difficulty sleeping at night. She is in her bed most of the day and we discussed that this is disrupting her sleep wake schedule. She is encouraged to stay up during the day and attending groups so that she is able to sleep at night. Questions regarding her medications were answered. Mental status exam: The patient is a morbidly obese female appearing her stated age. She seated calmly. She maintains a flat affect. She describes feelings of frustration and irritability that she is in the hospital and states that she would like to be discharged as soon as possible. She is reporting no suicidal or homicidal ideation. She is endorsing no auditory or visual hallucinations or specific delusions. Of course she may be underreporting symptoms to facilitate a discharge. Insight and judgment limited. She demonstrates no abnormal involuntary movements she demonstrates no verbal or physical aggressiveness. Plan: The patient will continue on her current medications. I will add trazodone as needed for sleep. Again she is encouraged to stay up during the day to assist sleep at night. During the hospitalization we will titrate the claws role further. We are exploring skilled nursing placement options. Vital signs reviewed.
[2018-03-27 11:01] LABS: Basophils % (A) 0 %; Eosinophils # (A) 0.2 k/uL (0-0.7); Eosinophils % (A) 4 %; HGB 12.1 gm/dL (11.4-16.0); Lymphocytes # (A) 1.9 k/uL (1.0-4.8); Lymphocytes % (A) 32 %; MCH 27.5 pg (25.0-35.0); MCHC 32.6 g/dL (31.0-37.0); MCV 84.2 fL (80.0-100.0); Mean Platelet Volume 9.1; Monocytes # (A) 0.3 k/uL (0-1.0); Monocytes % (A) 4 %; Neutrophils # (A) 3.3 k/uL (1.3-7.7); Neutrophils % (A) 57 %; Platelet Count 151 k/uL (150-450); WBC 5.9 k/uL (3.8-10.6)
[2018-03-27] MEDS: CHOLECALCIFEROL 1,000 UNIT TAB PO SCH (11:39)
[2018-03-27] MEDS: hydrOXYzine PAMOATE 25 MG CAP PO PRN (11:48)
[2018-03-27] MEDS: cloZAPine 100 MG TAB PO SCH (20:17)
[2018-03-27] MEDS: traZODone HCL 50 MG TAB PO PRN (20:19)
[2018-03-28] MEDS: DOCUSATE 100 MG CAP PO SCH ×2 (08:59→19:46)
[2018-03-28] MEDS: DIVALPROEX ER 500 MG TAB.ER.24H PO SCH (08:59)
[2018-03-28] MEDS: NAPROXEN 250 MG TAB PO PRN ×2 (09:01→17:28)
[2018-03-28] MEDS: hydrOXYzine PAMOATE 25 MG CAP PO PRN ×2 (09:02→19:46)
[2018-03-28] MEDS: NICOTINE POLACRILEX 2 MG GUM BUCCAL PRN ×3 (09:03→19:48)
[2018-03-28] MEDS: FLUTICASONE 110 MCG INHALER INHALATION SCH (09:05)
[2018-03-28] MEDS: ALBUTEROL INHALER 60 PUFF/8 GM INHALER INHALATION PRN (09:05)
--- NOTE | 2018-03-28 11:07 | P.PN ---
Progress Note - Text Interval history: The patient's is found in her room she refuses to speak with me and an interview room. She provides no answers to questions today. Staff report that she has been in her room this morning. She does verbalize her frustration that she is admitted and would like to be discharged. We discussed her case in detail at treatment team meeting. It appears that a fpc but may not be available so we discussed alternatives such as an [facility] home bed if that is affordable. Social work will coordinate this is a possibility with the patient's guardian to see if it is permissible and if it is affordable. Mental status exam: The patient is an overweight female she is lying in bed she is uncooperative with the interview this morning. She is resting comfortably she demonstrates no abnormal involuntary movements. She demonstrated no verbal or physical aggressiveness. Insight and judgment limited. Plan: The patient will continue on her current medications we will continue the Clozaril and titrated further later in the week. Vital signs reviewed they're within normal limits. Recent lab work is appropriate for continued dispensing of Clozaril. We will seek appropriate placement for her upon discharge.
[2018-03-28] MEDS: ACETAMINOPHEN TAB 325 MG TAB PO PRN ×2 (12:12→19:46)
[2018-03-28] MEDS: LORazepam 1 MG TAB PO PRN (12:14)
[2018-03-28] MEDS: CHOLECALCIFEROL 1,000 UNIT TAB PO SCH (12:15)
[2018-03-28] MEDS: ONDANSETRON ODT 4 MG TAB PO PRN (17:29)
[2018-03-28] MEDS: cloZAPine 100 MG TAB PO SCH (19:46)
[2018-03-28] MEDS: traZODone HCL 50 MG TAB PO PRN (19:46)
[2018-03-28] MEDS: MAG HYDROX/AL HYDROX/SIMETH 30 ML CUP PO PRN (22:33)
[2018-03-29] MEDS: ACETAMINOPHEN TAB 325 MG TAB PO PRN (00:02)
[2018-03-29] MEDS: LORazepam 1 MG TAB PO PRN ×2 (00:02→15:19)
[2018-03-29] MEDS: FLUTICASONE 110 MCG INHALER INHALATION SCH ×3 (01:30→17:25)
[2018-03-29] MEDS: ONDANSETRON ODT 4 MG TAB PO PRN ×2 (07:25→22:26)
[2018-03-29] MEDS: hydrOXYzine PAMOATE 25 MG CAP PO PRN ×2 (08:24→19:08)
[2018-03-29] MEDS: DIVALPROEX ER 500 MG TAB.ER.24H PO SCH (08:25)
[2018-03-29] MEDS: NAPROXEN 250 MG TAB PO PRN ×2 (08:25→20:19)
[2018-03-29] MEDS: DOCUSATE 100 MG CAP PO SCH ×2 (08:25→20:20)
--- NOTE | 2018-03-29 11:24 | P.PN ---
Progress Note - Text Interval history: The patient is found in her room she is awake she refuses to speak with me and an interview room or answer any questions at this time. She indicates that she only wants to know when she will be discharged. We discussed her discharge plan during treatment team meeting again. So far we have not received sufficient information from the patient's guardian to pursue alternative placement to a [place] [facility] [place]. Social work will clarify further. The patient continues to comply with her medication here in the mental health unit. Vital signs reviewed. The patient continues to isolate in her room however she is eating meals. Mental status exam: The patient is a morbidly obese female appearing her stated age. She is lying in bed she makes brief eye contact. She provides only a few brief answers indicating she wants to be discharged and is otherwise uncooperative with the session. She demonstrates no abnormal involuntary movements she demonstrates no verbal or physical aggressiveness. Insight and judgment are impaired. Plan: The patient will continue on the Clozaril I will titrate this to 150 mg in the evening. We will continue to work on appropriate placement for her when she is stabilized clinically. We will continue to monitor her for safety we will encourage her to participate in the therapeutic milieu although she has been resistant.
[2018-03-29] MEDS: CHOLECALCIFEROL 1,000 UNIT TAB PO SCH (12:29)
[2018-03-29] MEDS: NICOTINE POLACRILEX 2 MG GUM BUCCAL PRN ×2 (12:33→16:49)
[2018-03-29] MEDS: ALBUTEROL INHALER 60 PUFF/8 GM INHALER INHALATION PRN ×2 (17:26→21:44)
[2018-03-29] MEDS: cloZAPine 100 MG TAB PO SCH (20:20)
[2018-03-29] MEDS: traZODone HCL 50 MG TAB PO PRN (20:20)
[2018-03-30] MEDS: MAG HYDROX/AL HYDROX/SIMETH 30 ML CUP PO PRN (01:07)
[2018-03-30] MEDS: LORazepam 1 MG TAB PO PRN ×2 (01:18→23:37)
[2018-03-30] MEDS: DIVALPROEX ER 500 MG TAB.ER.24H PO SCH (08:41)
[2018-03-30] MEDS: DOCUSATE 100 MG CAP PO SCH ×2 (08:41→20:15)
[2018-03-30] MEDS: FLUTICASONE 110 MCG INHALER INHALATION SCH (09:09)
[2018-03-30] MEDS: CHOLECALCIFEROL 1,000 UNIT TAB PO SCH (12:17)
[2018-03-30] MEDS: NAPROXEN 250 MG TAB PO PRN ×2 (12:17→20:11)
[2018-03-30] MEDS: ALBUTEROL INHALER 60 PUFF/8 GM INHALER INHALATION PRN (12:22)
--- NOTE | 2018-03-30 15:04 | P.PN ---
Progress Note - Text Progress Note Date: 03/30/18 Interval history: Patient is seen in cross coverage today. Patient is found in her room lying in bed. She relates that she does not want to meet with me today. I discussed with her that I would try to meet with her again tomorrow. I was called yesterday due to the patient having superficial scratches on her wrist/forearm. She was placed on finger foods, per staff was shama for safety. Mental status exam: She was found in her room lying in bed. She refused to meet with me today. She did not show any significant agitation. She did not make any statement about thoughts of harm to self or others. Plan: We'll reattempt to me with patient again tomorrow. Continue current treatment regimen. We'll continue to cover this patient through the weekend. Continue to monitor regarding any suicidal ideations.
[2018-03-30] MEDS: NICOTINE POLACRILEX 2 MG GUM BUCCAL PRN (19:40)
[2018-03-30] MEDS: traZODone HCL 50 MG TAB PO PRN (20:12)
[2018-03-30] MEDS: cloZAPine 100 MG TAB PO SCH (20:12)
[2018-03-30] MEDS: hydrOXYzine PAMOATE 25 MG CAP PO PRN (20:12)
[2018-03-30] MEDS: ONDANSETRON ODT 4 MG TAB PO PRN (23:31)
[2018-03-30] MEDS: ACETAMINOPHEN TAB 325 MG TAB PO PRN (23:37)
[2018-03-31] MEDS: DOCUSATE 100 MG CAP PO SCH ×2 (07:33→20:04)
[2018-03-31] MEDS: DIVALPROEX ER 500 MG TAB.ER.24H PO SCH (07:33)
[2018-03-31] MEDS: FLUTICASONE 110 MCG INHALER INHALATION SCH ×3 (07:34→19:19)
--- NOTE | 2018-03-31 12:26 | P.PN ---
Progress Note - Text Progress Note Date: 03/31/18 Over history: Patient is seen in cross coverage today. She reports that her mood is doing better today. She inquires regarding being placed on Seroquel. We did discuss that she is on Clozaril. She does make reference to feeling sick to her stomach and sometimes vomiting when she eats. Mental status exam: She is alert and cooperative with the interview her affect is restricted overall. She describes her mood is better. She denies any thoughts of harm to self or others. She reports she feels safe on the unit. We discussed her going to staff if she feels like she is struggling. She does not verbalize any hallucinations or delusional thoughts. Plan: We'll maintain current psychotropic medication regimen. Continue to monitor for any adverse psychotropic medication side effects. Continue monitor regarding any suicidal ideations. We'll place back on former diet prior to being placed on finger foods
[2018-03-31] MEDS: NICOTINE POLACRILEX 2 MG GUM BUCCAL PRN (12:29)
[2018-03-31] MEDS: CHOLECALCIFEROL 1,000 UNIT TAB PO SCH (12:29)
[2018-03-31] MEDS: ONDANSETRON ODT 4 MG TAB PO PRN (12:29)
[2018-03-31] MEDS: LORazepam 1 MG TAB PO PRN (16:10)
[2018-03-31] MEDS: NAPROXEN 250 MG TAB PO PRN (16:10)
[2018-03-31] MEDS: ALBUTEROL INHALER 60 PUFF/8 GM INHALER INHALATION PRN (19:19)
[2018-03-31 20:03] VITALS: TEMP 98.1
[2018-03-31] MEDS: cloZAPine 100 MG TAB PO SCH (20:04)
[2018-03-31] MEDS: ACETAMINOPHEN TAB 325 MG TAB PO PRN (20:07)
[2018-03-31] MEDS: hydrOXYzine PAMOATE 25 MG CAP PO PRN (20:09)
[2018-03-31] MEDS: traZODone HCL 50 MG TAB PO PRN (20:10)
[2018-03-31] MEDS: MAG HYDROX/AL HYDROX/SIMETH 30 ML CUP PO PRN (23:03)
[2018-04-01] MEDS: CHOLECALCIFEROL 1,000 UNIT TAB PO SCH (08:44)
[2018-04-01] MEDS: hydrOXYzine PAMOATE 25 MG CAP PO PRN ×2 (08:44→20:13)
[2018-04-01] MEDS: DIVALPROEX ER 500 MG TAB.ER.24H PO SCH (08:44)
[2018-04-01] MEDS: NAPROXEN 250 MG TAB PO PRN (08:45)
[2018-04-01] MEDS: DOCUSATE 100 MG CAP PO SCH ×2 (08:45→20:10)
--- NOTE | 2018-04-01 11:01 | P.PN ---
Progress Note - Text Interval history: The patient is found in her room she follows me to an interview room. She reports her mood is stable. She continues to be focused on a discharge date. Staff report that she had discussed or made gestures of cutting herself with utensils and they were taken away over the weekend. They have been given back today. She states she has no thoughts of harming herself including cutting. She has no questions regarding the claws role. We discussed titrating this further to the 200 mg at bedtime she was previously on. We continue to look for appropriate placement. This includes either [facility] home placement or skilled nursing placement. Mental status exam: The patient is a morbidly obese female appearing her stated age. Hygiene grooming fair. She has limited eye contact. She provides brief responses to some questions she has little spontaneous speech other than to say she wants to be discharged. She reports no suicidal or homicidal ideation intent or plan. When asked about psychosis she quickly states "no". She demonstrates no verbal or physical aggressiveness she demonstrates no abnormal involuntary movements. Insight and judgment limited. Plan: The patient will continue on her current medication. During the course of this week we will titrate the claws role further. We continue to seek appropriate placement for her.
[2018-04-01] MEDS: NICOTINE POLACRILEX 2 MG GUM BUCCAL PRN (12:17)
[2018-04-01] MEDS: ALBUTEROL INHALER 60 PUFF/8 GM INHALER INHALATION PRN ×2 (13:21→20:06)
[2018-04-01] MEDS: FLUTICASONE 110 MCG INHALER INHALATION SCH ×2 (13:21→20:06)
[2018-04-01] MEDS: ACETAMINOPHEN TAB 325 MG TAB PO PRN (17:11)
[2018-04-01] MEDS: ONDANSETRON ODT 4 MG TAB PO PRN (17:12)
[2018-04-01] MEDS: MAG HYDROX/AL HYDROX/SIMETH 30 ML CUP PO PRN (18:02)
[2018-04-01] MEDS: LORazepam 1 MG TAB PO PRN (18:58)
[2018-04-01] MEDS: cloZAPine 100 MG TAB PO SCH (20:10)
[2018-04-01] MEDS: traZODone HCL 50 MG TAB PO PRN (20:14)
[2018-04-02 07:04] VITALS: BP 101/55; PULSE 97; RESP 18
[2018-04-02] MEDS: FLUTICASONE 110 MCG INHALER INHALATION SCH (09:11)
--- NOTE | 2018-04-02 10:12 | P.DS ---
Providers Date of admission: 03/21/18 17:55 Expected date of discharge: 04/02/18 Attending physician: Willy Mckeon Consults: 03/21/18 19:24 Consult Physician Routine Consulting Provider: Sil Bailey Consult Reason/Comments: H & P and medical care Do you want consulting provider notified?: Yes Primary care physician: Stated None - Discharge Diagnosis(es) (1) Schizoaffective disorder Current Visit: Yes Status: Acute Priority: High (2) Cocaine use disorder, mild, in early remission Current Visit: Yes Status: Acute Priority: Medium Hospital Course: Brief summary of admission note: This patient is a 23-year-old single female who was admitted to the mental health unit through the emergency room as she was noncompliant with her medication management. The patient was working with [facility] and he submitted a notification of noncompliance as she eloped from her [facility] home 2 weeks prior to this admission. She did not keep her scheduled appointment with Dr. Peck. She does have a long history of schizoaffective disorder cocaine use disorder and marijuana use. For full details please refer to the psychiatric evaluation dated 2017. Summary of hospital course: The patient was admitted to the mental health unit on an existing treatment order. She was restarted on her Clozaril Depakote ER Vistaril and later trazodone was added for sleep. The patient demonstrated no aggressive behavior but she was only partially cooperative at times. Intermittently throughout her stay she would actually come down to an interview room to speak but often would refuse. She was compliant with medications and blood draws. It was determined it was in her best interest to reside in a senior care again and be part of [facility]. Social work has been in contact with the patient's guardian. The patient has sufficiently stabilized to be transition back to outpatient care. She is agreeable to senior care placement. Mental status exam: The patient is a morbidly obese female appearing her stated age. Hygiene is adequate she has a disheveled appearance. She reports her mood is improved she is reporting no suicidal or homicidal ideation intent or plan. She is reporting no auditory or visual hallucinations or any specific delusions. She demonstrates no evidence of psychosis as she seated in the chair. Thought process is linear today she demonstrates no tangential thinking loose associations or flight of ideas. She does not appear hypomanic or manic. She maintains a constricted affect. No evidence of any abnormal involuntary movements. She demonstrates no verbal or physical aggressiveness. She is oriented to person place and date. Speech is more spontaneous she does asked several questions regarding her discharge plan. Impressions 1. Schizoaffective disorder, cocaine use disorder in early remission, rule out cannabis use disorder 2. Medical comorbidities include asthma and morbid obesity Plan: The patient will be discharged mental health unit today following the placement meeting at 2:15 PM. She will reside at the [facility] and will follow-up with [facility] for ongoing psychiatric care. She will continue on Clozaril 200 mg at bedtime Depakote ER 500 mg daily Vistaril 50 mg up to twice daily as needed for anxiety trazodone 50 mg at bedtime as needed for insomnia. There is no imminent safety risk she is appropriate for transition back to outpatient care. She is instructed to abstain from any use of alcohol marijuana or other illicit drugs as they will elevate her safety risk and exacerbate symptoms of psychosis. She is instructed to return to the hospital with any acute safety concerns. Patient Condition at Discharge: Stable Plan - Discharge Summary Discharge Rx Participant: No New Discharge Prescriptions: New Divalproex ER [Depakote ER] 500 mg PO DAILY #30 tab.er.24h hydrOXYzine PAMOATE [Vistaril] 50 mg PO AC-BID PRN #60 capsule PRN Reason: Anxiety Naproxen 500 mg PO AC-BID PRN #30 tablet PRN Reason: Pain traZODone HCL [Desyrel] 50 mg PO HS PRN #30 tab PRN Reason: Insomnia Continue Docusate [Colace] 100 mg PO BID Cholecalciferol [Vitamin D3] 5,000 unit PO DAILY Budesonide [Pulmicort Flexhaler] 2 puff INHALATION RT-BID cloZAPine [Clozaril] 200 mg PO HS #60 tab Discontinued Divalproex ER [Depakote ER] 1,500 mg PO HS Benztropine Mesylate [Cogentin] 1 mg PO BID hydrOXYzine PAMOATE [Vistaril] 50 mg PO TID Discharge Medication List Budesonide [Pulmicort Flexhaler] 2 puff INHALATION RT-BID 02/11/18 [History] Cholecalciferol [Vitamin D3] 5,000 unit PO DAILY 02/11/18 [History] Docusate [Colace] 100 mg PO BID 02/11/18 [History] Divalproex ER [Depakote ER] 500 mg PO DAILY #30 tab.er.24h 04/02/18 [Rx] Naproxen 500 mg PO AC-BID PRN #30 tablet 04/02/18 [Rx] cloZAPine [Clozaril] 200 mg PO HS #60 tab 04/02/18 [Rx] hydrOXYzine PAMOATE [Vistaril] 50 mg PO AC-BID PRN #60 capsule 04/02/18 [Rx] traZODone HCL [Desyrel] 50 mg PO HS PRN #30 tab 04/02/18 [Rx] Follow up Appointment(s)/Referral(s): None,Stated [Primary Care Provider] - 1-2 days
[2018-04-02] MEDS: DOCUSATE 100 MG CAP PO SCH (10:13)
[2018-04-02] MEDS: DIVALPROEX ER 500 MG TAB.ER.24H PO SCH (10:13)
[2018-04-02] MEDS: NAPROXEN 250 MG TAB PO PRN (10:15)
[2018-04-02] MEDS: LORazepam 1 MG TAB PO PRN (10:17)
[2018-04-02] MEDS: NICOTINE POLACRILEX 2 MG GUM BUCCAL PRN (10:19)
[2018-04-02] MEDS: CHOLECALCIFEROL 1,000 UNIT TAB PO SCH (13:23)
[2018-04-02] MEDS ORDERED: cloZAPine 100 MG TAB PO SCH (21:00)
== END 2018-04-02 14:55 | disposition home or self-care (01) | DRG 885 ==
LOC: EC 13:44 → 3MHU 17:55
PROVIDERS: ADMIT Psychiatry & Neurology Psychiatry; ATTEND Psychiatry & Neurology Psychiatry
DX: F25.0 Schizoaffective disorder, bipolar type (principal); Z68.41 Body mass index [BMI] 40.0-44.9, adult; E66.01 Morbid (severe) obesity due to excess calories; Z91.19 Patient's noncompliance with other medical treatment and regimen; Z91.14 Patient's other noncompliance with medication regimen; F14.11 Cocaine abuse, in remission; F43.10 Post-traumatic stress disorder, unspecified; F41.0 Panic disorder [episodic paroxysmal anxiety]; F60.3 Borderline personality disorder; F12.20 Cannabis dependence, uncomplicated; G47.9 Sleep disorder, unspecified; J45.30 Mild persistent asthma, uncomplicated; E78.5 Hyperlipidemia, unspecified; K21.9 Gastro-esophageal reflux disease without esophagitis; K58.9 Irritable bowel syndrome, unspecified; F17.210 Nicotine dependence, cigarettes, uncomplicated; Z71.6 Tobacco abuse counseling; Z79.899 Other long term (current) drug therapy; Z87.820 Personal history of traumatic brain injury; Z87.442 Personal history of urinary calculi; Z88.0 Allergy status to penicillin; Z88.2 Allergy status to sulfonamides; Z88.8 Allergy status to other drugs, medicaments and biological substances; Z81.8 Family history of other mental and behavioral disorders
CPT/HCPCS: 80053; 80061; 80306; 81003; 81025; 82075; 82553; 83036; 84443; 84484; 85025; 93005; 94640; 99285

== ENCOUNTER 2018-04-02 22:16 | Observation (INO) | payer OTHER ==
[2018-04-02] MEDS ORDERED: SODIUM CHLORIDE 0.9% 500 ML IV ONE (23:13)
[2018-04-02] MEDS ORDERED: SODIUM CHLORIDE 0.9% 1,000 ML IV SCH (23:15)
[2018-04-03 00:11] LABS: Basophils % (A) 0 %; Eosinophils # (A) 0.2 k/uL (0-0.7); Eosinophils % (A) 2 %; HCT 37.4 % (34.0-46.0); HGB 12.3 gm/dL (11.4-16.0); Lymphocytes # (A) 2.6 k/uL (1.0-4.8); Lymphocytes % (A) 24 %; MCH 27.5 pg (25.0-35.0); MCHC 32.7 g/dL (31.0-37.0); MCV 84.2 fL (80.0-100.0); Mean Platelet Volume 8.6; Monocytes # (A) 0.6 k/uL (0-1.0); Monocytes % (A) 6 %; Neutrophils # (A) 7.2 k/uL (1.3-7.7); Neutrophils % (A) 67 %; Platelet Count 224 k/uL (150-450); RBC 4.45 m/uL (3.80-5.40); RDW 14.3 % (11.5-15.5); WBC 10.7 k/uL (3.8-10.6)
[2018-04-03 00:20] LABS: ALT 95 U/L (9-52); AST 43 U/L (14-36); Alkaline Phosphatase 112 U/L (38-126); Anion Gap 10 mmol/L; Blood Urea Nitrogen 14 mg/dL (7-17); Calcium 9.6 mg/dL (8.4-10.2); Carbon Dioxide 24 mmol/L (22-30); Chloride 104 mmol/L (98-107); Glucose 96 mg/dL (74-99); Potassium 4.4 mmol/L (3.5-5.1); Sodium 138 mmol/L (137-145); Total Bilirubin 0.2 mg/dL (0.2-1.3); Total Protein 6.8 g/dL (6.3-8.2)
[2018-04-03 00:25] LABS: D-Dimer 0.3 mg/L FEU (<0.60); INR 0.9 (<1.2); Partial Thromboplastin Time 25.3 sec (22.0-30.0); Prothrombin Time 9.4 sec (9.0-12.0)
[2018-04-03 00:29] LABS: Creatine Kinase 110 U/L (30-135)
--- NOTE | 2018-04-03 00:30 | ED ---
General Adult HPI - General Chief complaint: Chest Pain Stated complaint: chest pain/dehydrated Time Seen by Provider: 04/02/18 22:38 Source: patient, RN notes reviewed, old records reviewed Mode of arrival: ambulatory Limitations: no limitations - History of Present Illness Initial comments: Chief complaint and history of present illness a 23-year-old female who has been on 3 W. for approximately 10 days. She was discharged today to a snf. She is here with a snf counselor. While the group pain she started having upper chest pain. She states it is worse with deep breathing she does state that she broke out in some the sweats. This was ongoing for 2 hours. Currently reproducible with palpation over the sternum. No rash noted patient denies any injury. Patient has long history of repeated episodes chest chest pain diagnosis costochondritis in the past. She presents today with an elevated heart rate 116. Mild EKG changes compared to one done on December of this year. - Related Data Home Medications Medication Instructions Recorded Confirmed Budesonide [Pulmicort Flexhaler] 2 puff INHALATION RT-BID 02/11/18 04/02/18 Cholecalciferol [Vitamin D3] 5,000 unit PO DAILY 02/11/18 04/02/18 Docusate [Colace] 100 mg PO BID 02/11/18 04/02/18 Divalproex ER [Depakote ER] 500 mg PO HS 04/02/18 04/02/18 Previous Rx's Medication Instructions Recorded Naproxen 500 mg PO AC-BID PRN #30 tablet 04/02/18 cloZAPine [Clozaril] 200 mg PO HS #60 tab 04/02/18 hydrOXYzine PAMOATE [Vistaril] 50 mg PO AC-BID PRN #60 capsule 04/02/18 traZODone HCL [Desyrel] 50 mg PO HS PRN #30 tab 04/02/18 Allergies Allergy/AdvReac Type Severity Reaction Status Date / Time Penicillins Allergy Severe Anaphylaxis Verified 04/02/18 22:50 Sulfa (Sulfonamide Allergy Severe Anaphylaxis Verified 04/02/18 22:50 Antibiotics) diphenhydramine HCl Allergy Rash/Hives Verified 04/02/18 22:50 [From Benadryl] Review of Systems ROS Statement: Those systems with pertinent positive or pertinent negative responses have been documented in the HPI. Review of systems patient's denying any headache or visual acuity changes she reports chest pain anterior chest wall sometimes made worse by pushing sometimes not. It does increase with deep breathing. A twist to the right increases pain. Twist to the left does not. No sensation of nausea vomiting. No radiation of pain. Currently no sweats. All systems reviewed past medical problems significant for asthma, GERD, kidney stones and schizophrenia. The patient's surgeries include bilateral wrist ganglions. Family history she states that her older sister was only in her late 20s has had heart issues. Patient has ALLERGIES to penicillin sulfa. Diphenhydramine as listed but she denies. The patient is a smoker strongly encouraged to stop denies alcohol use. ROS Other: All systems not noted in ROS Statement are negative. 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 Past Anesthesia/Blood Transfusion Reactions: No Reported Reaction Additional Past Anesthesia/Blood Transfusion Reaction / Comment(s): Patient does not believe she has had a reaction to anesthesia. Past Psychological History: Anxiety, Depression, Panic Disorder, PTSD, Schizoaffective Disorder, Schizophrenia Smoking Status: Current every day smoker Past Alcohol Use History: None Reported Past Drug Use History: Marijuana, Opiates - Past Family History Mother Family Medical History: No Reported History Father Family Medical History: No Reported History Additional Family Medical History / Comment(s): bipolar, sever seasonal allergies Brother(s) Family Medical History: No Reported History Sister(s) Family Medical History: No Reported History General Exam - General Exam Comments Initial Comments: General: The patient is awake and alert, here because of anterior chest wall pain just below the manubrium. Vital signs temp 97.9 pulse 117 respiratory rate 18 pulse ox 97% room air blood pressure 110/77 Eye: Pupils are equal, round and reactive to light, extra-ocular movements are intact ; there is normal conjunctiva bilaterally. No signs of icterus. Ears, nose, mouth and throat: There are moist mucous membranes and no oral lesions. Neck: The neck is supple, there is no tenderness. Cardiovascular: There is a regular rate and rhythm. No murmur, rub or gallop is appreciated. The area of pain can be made worse by direct palpation. No bruising or rash noted over this area. Respiratory: Lungs are clear to auscultation, respirations are non-labored, breath sounds are equal. No wheezes, stridor, rales, or rhonchi. Gastrointestinal: Soft, non-distended, non-tender abdomen without masses or organomegaly noted. There is no rebound or guarding present. No CVA tenderness. Bowel sounds are unremarkable. Back: There is no tenderness to palpation in the midline. There is no obvious deformity. No rashes noted. Musculoskeletal: Normal ROM, no tenderness, There is no pedal edema. There is no calf tenderness or swelling. Sensation intact. Neurological: No numbness no tingling.. Skin: Skin is warm and dry and no rashes or lesions are noted. Psychiatric: Cooperative, flat affect, recently on 3 W. diagnosis of schizophrenia. Discharged today to stay at a snf which she states she likes. She's never been there before. She is here with a counselor. No reported new medications. Limitations: no limitations Course Vital Signs 04/02/18 22:27 Temperature 97.9 F Pulse Rate 117 H Respiratory 18 Rate Blood Pressure 110/77 O2 Sat by Pulse 97 Oximetry EKG Findings - EKG Comments: EKG Findings:: EKG was done at 2245 showing sinus tachycardia rate 116. Some mild irregularities. But no acute ST elevation or ectopy. MO interval is 140 QRS 76 QT 348 QTc 483. This EKG is compared to one done on 07/19/2017 and they' re very similar. Dr. Billy Medical Decision Making - Medical Decision Making Medical decision making; 23-year-old female complaint chest pain. Somewhat reproducible. Recently on 3 W. diagnosis schizophrenia. Discharged today and was having snf for less than several hours before she started complaining of chest pain. EKG done today very similar to one done on [place] this past year. Labs show white count of 10.7 hemoglobin 12 hematocrit 37 with potassium 4.4. BUN 14 creatinine 0.8 GFR greater than 90. D-dimer 0.3, troponin less than 0.012. Triage positive for benzodiazepines. Her AST and ALT are mildly elevated. Chest x-ray is done AP and lateral view and reviewed by radiologist his impression is normal chest. No change. As read by Dr. Cronin. The chest pain still reproducible with palpation and twisting. The patient's heart rate remains elevated at 110. Afebrile. We discussed tachycardia atypical chest pain, costochondritis and pleurisy. She'll be given 2 mg of IV morphine.. The patient be admitted for observation with repeat cardiac enzymes. - Lab Data Result diagrams: 04/02/18 23:37 04/02/18 23:37 Lab Results 04/02/18 04/02/18 04/02/18 Range/Units 23:37 23:37 23:37 WBC 10.7 H (3.8-10.6) k/uL RBC 4.45 (3.80-5.40) m/uL Hgb 12.3 (11.4-16.0) gm/dL Hct 37.4 (34.0-46.0) % MCV 84.2 (80.0-100.0) fL MCH 27.5 (25.0-35.0) pg MCHC 32.7 (31.0-37.0) g/dL RDW 14.3 (11.5-15.5) % Plt Count 224 (150-450) k/uL Neutrophils % 67 % Lymphocytes % 24 % Monocytes % 6 % Eosinophils % 2 % Basophils % 0 % Neutrophils # 7.2 (1.3-7.7) k/uL Lymphocytes # 2.6 (1.0-4.8) k/uL Monocytes # 0.6 (0-1.0) k/uL Eosinophils # 0.2 (0-0.7) k/uL Basophils # 0.0 (0-0.2) k/uL PT (9.0-12.0) sec INR (<1.2) APTT (22.0-30.0) sec D-Dimer (<0.60) mg/L FEU Sodium 138 (137-145) mmol/L Potassium 4.4 (3.5-5.1) mmol/L Chloride 104 (98-107) mmol/L Carbon Dioxide 24 (22-30) mmol/L Anion Gap 10 mmol/L BUN 14 (7-17) mg/dL Creatinine 0.86 (0.52-1.04) mg/dL Est GFR (CKD-EPI)AfAm >90 (>60 ml/min/1.73 sqM) Est GFR (CKD-EPI)NonAf >90 (>60 ml/min/1.73 sqM) Glucose 96 (74-99) mg/dL Calcium 9.6 (8.4-10.2) mg/dL Total Bilirubin 0.2 (0.2-1.3) mg/dL AST 43 H (14-36) U/L ALT 95 H (9-52) U/L Alkaline Phosphatase 112 (38-126) U/L Total Creatine Kinase 110 (30-135) U/L CK-MB (CK-2) 0.6 (0.0-2.4) ng/mL CK-MB (CK-2) Rel Index 0.5 Troponin I <0.012 (0.000-0.034) ng/mL Total Protein 6.8 (6.3-8.2) g/dL Albumin 4.0 (3.5-5.0) g/dL Urine Opiates Screen (NotDetected) Ur Oxycodone Screen (NotDetected) Urine Methadone Screen (NotDetected) Ur Propoxyphene Screen (NotDetected) Ur Barbiturates Screen (NotDetected) U Tricyclic Antidepress (NotDetected) Ur Phencyclidine Scrn (NotDetected) Ur Amphetamines Screen (NotDetected) U Methamphetamines Scrn (NotDetected) U Benzodiazepines Scrn (NotDetected) Urine Cocaine Screen (NotDetected) U Marijuana (THC) Screen (NotDetected) 04/02/18 04/02/18 Range/Units 23:37 23:37 WBC (3.8-10.6) k/uL RBC (3.80-5.40) m/uL Hgb (11.4-16.0) gm/dL Hct (34.0-46.0) % MCV (80.0-100.0) fL MCH (25.0-35.0) pg MCHC (31.0-37.0) g/dL RDW (11.5-15.5) % Plt Count (150-450) k/uL Neutrophils % % Lymphocytes % % Monocytes % % Eosinophils % % Basophils % % Neutrophils # (1.3-7.7) k/uL Lymphocytes # (1.0-4.8) k/uL Monocytes # (0-1.0) k/uL Eosinophils # (0-0.7) k/uL Basophils # (0-0.2) k/uL PT 9.4 (9.0-12.0) sec INR 0.9 (<1.2) APTT 25.3 (22.0-30.0) sec D-Dimer 0.30 (<0.60) mg/L FEU Sodium (137-145) mmol/L Potassium (3.5-5.1) mmol/L Chloride (98-107) mmol/L Carbon Dioxide (22-30) mmol/L Anion Gap mmol/L BUN (7-17) mg/dL Creatinine (0.52-1.04) mg/dL Est GFR (CKD-EPI)AfAm (>60 ml/min/1.73 sqM) Est GFR (CKD-EPI)NonAf (>60 ml/min/1.73 sqM) Glucose (74-99) mg/dL Calcium (8.4-10.2) mg/dL Total Bilirubin (0.2-1.3) mg/dL AST (14-36) U/L ALT (9-52) U/L Alkaline Phosphatase (38-126) U/L Total Creatine Kinase (30-135) U/L CK-MB (CK-2) (0.0-2.4) ng/mL CK-MB (CK-2) Rel Index Troponin I (0.000-0.034) ng/mL Total Protein (6.3-8.2) g/dL Albumin (3.5-5.0) g/dL Urine Opiates Screen Not Detected (NotDetected) Ur Oxycodone Screen Not Detected (NotDetected) Urine Methadone Screen Not Detected (NotDetected) Ur Propoxyphene Screen Not Detected (NotDetected) Ur Barbiturates Screen Not Detected (NotDetected) U Tricyclic Antidepress Not Detected (NotDetected) Ur Phencyclidine Scrn Not Detected (NotDetected) Ur Amphetamines Screen Not Detected (NotDetected) U Methamphetamines Scrn Not Detected (NotDetected) U Benzodiazepines Scrn Detected H (NotDetected) Urine Cocaine Screen Not Detected (NotDetected) U Marijuana (THC) Screen Not Detected (NotDetected) Disposition Clinical Impression: Atypical chest pain Disposition: ADMITTED IP TO THIS [facility] Condition: Stable Is patient prescribed a controlled substance at d/c from ED?: No Referrals: [facility] [Primary Care Provider] - 1-2 days
--- NOTE | 2018-04-03 00:34 | XR ---
EXAMINATION TYPE: XR chest 2V DATE OF EXAM: 04/02/2018 COMPARISON: 08/09/2017 HISTORY: Dizziness TECHNIQUE: Frontal and lateral views of the chest are obtained. FINDINGS: Heart and mediastinum are normal. Lungs are clear. Diaphragm is normal. There are chest le ads. Bony thorax is intact. IMPRESSION: Normal chest. No change.
[2018-04-03 00:39] LABS: Amphetamine Screen,Urine Not Detected (NotDetected); Barbiturate Screen,Urine Not Detected (NotDetected); Benzodiazepines Screen,Urine Detected (NotDetected); Cocaine Screen,Urine Not Detected (NotDetected); Methadone Screen, Urine Not Detected (NotDetected); Opiate Screen,Urine Not Detected (NotDetected); Oxycodone Screen, Urine Not Detected (NotDetected); Phencyclidine Screen,Urine Not Detected (NotDetected); Tricyclic Antidepressant,Urine Not Detected (NotDetected); Urn Cannabinoid Scrn Not Detected (NotDetected)
[2018-04-03 00:42] LABS: Creatine Kinase MB 0.6 ng/mL (0.0-2.4); Troponin I <0.012 ng/mL (0.000-0.034)
[2018-04-03] MEDS ORDERED: MORPHINE SULFATE 2 MG/ML SYRINGE IVP STA (00:53)
[2018-04-03] MEDS ORDERED: IBUPROFEN 400 MG TAB PO PRN (00:56)
[2018-04-03] MEDS ORDERED: NALOXONE 0.4 MG/ML 1 ML VIAL IV PRN (00:56)
[2018-04-03] MEDS ORDERED: hydrOXYzine PAMOATE 25 MG CAP PO PRN (00:59)
[2018-04-03] MEDS ORDERED: traZODone HCL 50 MG TAB PO PRN (00:59)
[2018-04-03] MEDS: MORPHINE SULFATE 4 MG/ML SYRINGE IV PRN ×2 (02:08→08:05)
[2018-04-03 03:52] VITALS: BMI 40.6
[2018-04-03 07:48] LABS: Basophils % (A) 0 %; Eosinophils # (A) 0.2 k/uL (0-0.7); Eosinophils % (A) 2 %; HCT 38.2 % (34.0-46.0); Lymphocytes # (A) 2.4 k/uL (1.0-4.8); Lymphocytes % (A) 30 %; MCH 27.3 pg (25.0-35.0); MCHC 31.6 g/dL (31.0-37.0); MCV 86.4 fL (80.0-100.0); Mean Platelet Volume 7.6; Monocytes # (A) 0.4 k/uL (0-1.0); Monocytes % (A) 5 %; Neutrophils # (A) 4.9 k/uL (1.3-7.7); Neutrophils % (A) 61 %; Platelet Count 209 k/uL (150-450); RBC 4.42 m/uL (3.80-5.40); RDW 14.3 % (11.5-15.5); WBC 8.1 k/uL (3.8-10.6)
[2018-04-03] MEDS ORDERED: FLUTICASONE 110 MCG INHALER INHALATION SCH (08:00)
[2018-04-03 08:16] LABS: Creatine Kinase 91 U/L (30-135)
[2018-04-03 08:28] LABS: Creatine Kinase MB 0.5 ng/mL (0.0-2.4); Troponin I <0.012 ng/mL (0.000-0.034)
[2018-04-03] MEDS ORDERED: DOCUSATE 100 MG CAP PO SCH (09:00)
[2018-04-03 11:59] LABS: Creatine Kinase 86 U/L (30-135)
[2018-04-03] MEDS ORDERED: CHOLECALCIFEROL 1,000 UNIT TAB PO SCH (12:00)
[2018-04-03 12:13] LABS: Creatine Kinase MB 0.4 ng/mL (0.0-2.4); Troponin I <0.012 ng/mL (0.000-0.034)
[2018-04-03] MEDS ORDERED: MORPHINE ORAL SOLN 10 MG/5 ML CUP PO PRN (13:11)
[2018-04-03 13:14] VITALS: RESP 16
[2018-04-03 15:24] VITALS: BP 101/70; PULSE 107; TEMP 98.2
--- NOTE | 2018-04-03 16:04 | P.HPIM ---
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 Presents because of chest pain. Located in the left upper chest of 2 days' duration. Nonradiating. Patient states it was severe when she came in and now is coming down as per patient was 10/10 and now is 8/10. As per patient's is stabbing and squeezing in character and increased with inspiration, associated with some dyspnea. Patient denies any other respiratory symptoms, no cough no sneezing or sore throat. Patient is current smoker about half pack per day, as per patient she is been smoking since age 12. She denies using alcohol or illicit tracts. Patient states her last menstrual period was about 2 months ago as she is on control pills, I offered to do test, however patient declines. Risks including but not limited to teratogenic effects, benefits and alternatives were explained to the patient and she verbalized understanding Patient has a psychiatrist as an outpatient Dr. Krause, however the last time she saw him was about one year ago, however patient states she has an appointment on 04/08/2018, and has the contact information exact timing at home. Currently patient denies hallucination, dilution or suicidal ideation. In the emergency room her d-dimer was negative at 0.3, CBC and BMP was unremarkable, liver enzymes are slightly elevated. Review of Systems CONSTITUTIONAL: No fever, no malaise, no fatigue. HEENT: No recent visual problems or hearing problems. Denied any sore throat. CARDIOVASCULAR: No orthopnea, PND, no palpitations, no syncope. PULMONARY: No shortness of breath, no cough, no hemoptysis. GASTROINTESTINAL: No diarrhea, no nausea, no vomiting, no abdominal pain. Normoactive bowel sounds. NEUROLOGICAL: No headaches, no weakness, no numbness. HEMATOLOGICAL: Denies any bleeding or petechiae. GENITOURINARY: Denies any burning micturition, frequency, or urgency. MUSCULOSKELETAL/RHEUMATOLOGICAL: Denies any joint pain, swelling, or any muscle pain. ENDOCRINE: Denies any polyuria or polydipsia. 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 Past Anesthesia/Blood Transfusion Reactions: No Reported Reaction Additional Past Anesthesia/Blood Transfusion Reaction / Comment(s): Patient does not believe she has had a reaction to anesthesia. Past Psychological History: Anxiety, Depression, Panic Disorder, PTSD, Schizoaffective Disorder, Schizophrenia Smoking Status: Current every day smoker Past Alcohol Use History: None Reported Additional Past Alcohol Use History / Comment(s): Patient denies any current alcohol use at this time. Past Drug Use History: Marijuana, Opiates Additional Drug Use History / Comment(s): Patient states that she smokes MJ daily and smokes crack daily. - Past Family History Mother Family Medical History: No Reported History Father Family Medical History: No Reported History Additional Family Medical History / Comment(s): bipolar, sever seasonal allergies Brother(s) Family Medical History: No Reported History Sister(s) Family Medical History: No Reported History Medications and Allergies Home Medications Medication Instructions Recorded Confirmed Type Budesonide [Pulmicort Flexhaler] 2 puff INHALATION RT-BID 02/11/18 04/02/18 History Cholecalciferol [Vitamin D3] 5,000 unit PO DAILY 02/11/18 04/02/18 History Docusate [Colace] 100 mg PO BID 02/11/18 04/02/18 History Divalproex ER [Depakote ER] 500 mg PO HS 04/02/18 04/02/18 History Naproxen 500 mg PO AC-BID PRN #30 tablet 04/02/18 04/02/18 Rx cloZAPine [Clozaril] 200 mg PO HS #60 tab 04/02/18 04/02/18 Rx hydrOXYzine PAMOATE [Vistaril] 50 mg PO AC-BID PRN #60 capsule 04/02/18 Rx traZODone HCL [Desyrel] 50 mg PO HS PRN #30 tab 04/02/18 04/02/18 Rx Allergies Allergy/AdvReac Type Severity Reaction Status Date / Time Penicillins Allergy Severe Anaphylaxis Verified 04/02/18 22:50 Sulfa (Sulfonamide Allergy Severe Anaphylaxis Verified 04/02/18 22:50 Antibiotics) diphenhydramine HCl Allergy Rash/Hives Verified 04/02/18 22:50 [From Benadryl] Physical Exam Vitals: Vital Signs Temp Pulse Pulse Pulse Resp BP BP 04/03/18 15:23 98.2 F 107 H 16 101/70 04/03/18 12:00 98.5 F 114 H 16 112/73 04/03/18 08:03 117/64 04/03/18 07:20 98.1 F 110 H 18 92/51 04/03/18 07:15 98.1 F 110 H 18 92/51 04/03/18 03:00 18 04/03/18 01:56 97.8 F 114 H 18 114/66 04/03/18 01:11 98.1 F 112 H 20 117/70 04/02/18 22:27 97.9 F 117 H 18 110/77 Pulse Ox 04/03/18 15:23 96 04/03/18 12:00 96 04/03/18 08:03 04/03/18 07:20 97 04/03/18 07:15 97 04/03/18 03:00 04/03/18 01:56 94 L 04/03/18 01:11 96 04/02/18 22:27 97 Intake and Output 04/03/18 04/03/18 04/03/18 06:59 14:59 22:59 Intake Total 840 Balance 840 Intake: Oral 840 Other: # Voids 2 Weight 100.698 kg GENERAL: The patient is alert and oriented x3, not in any acute distress. Well developed, well nourished. HEENT: Pupils are round and equally reacting to light. EOMI. No scleral icterus. No conjunctival pallor. Normocephalic, atraumatic. No pharyngeal erythema. No thyromegaly. CARDIOVASCULAR: S1 and S2 present. No murmurs, rubs, or gallops. PULMONARY: Chest is clear to auscultation, no wheezing or crackles. Significant left upper chest wall tenderness when patient says her chest pain is at ABDOMEN: Soft, nontender, nondistended, normoactive bowel sounds. No palpable organomegaly. MUSCULOSKELETAL: No joint swelling or deformity. EXTREMITIES: No cyanosis, clubbing, or pedal edema. NEUROLOGICAL: Gross neurological examination did not reveal any focal deficits. SKIN: No rashes. Results CBC & Chem 7: 04/03/18 06:27 04/02/18 23:37 Labs: Abnormal Lab Results - Last 24 Hours (Table) 04/02/18 04/02/18 04/02/18 Range/Units 23:37 23:37 23:37 WBC 10.7 H (3.8-10.6) k/uL AST 43 H (14-36) U/L ALT 95 H (9-52) U/L U Benzodiazepines Scrn Detected H (NotDetected) Thrombosis Risk Factor Assmnt - Choose All That Apply Each Factor Represents 1 point: Abnormal pulmonary function (COPD) Thrombosis Risk Factor Assessment Total Risk Factor Score: 1 Thrombosis Risk Factor Assessment Level: Low Risk Assessment and Plan Assessment: Chest pain, rule out cardiac cause. 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 Continue same treatment continue symptomatic treatment. Resume home medication. We will ask train controller for evaluation of the patient. Patient with history of asthma and has some chest pain and dyspnea so it call pulmonary consult. Patient may be suffering from musculoskeletal pain given her significant tenderness in her left upper chest on exam. Monitor lytes and vitals. Patient is counseled about smoking cessation, she agrees for nicotine patch. Psychiatric follow-up as an outpatient Monitor labs and vitals. Continue with pain management. DVT and GI prophylaxis. Further recommendation is based on the clinical course of the patient DVT prophylaxis mechanical, patient is mobile GI prophylaxis Protonix
[2018-04-03] MEDS ORDERED: PANTOPRAZOLE 40 MG TABLET PO SCH (16:15)
[2018-04-03] MEDS ORDERED: LIDOCAINE 5% PATCH TOPICAL SCH (16:15)
[2018-04-03 17:18] LABS: Albumin 3.9 g/dL (3.5-5.0); Bilirubin, Delta 0.1 mg/dL (0.0-0.2); Total Bilirubin 0.1 mg/dL (0.2-1.3); Total Protein 6.7 g/dL (6.3-8.2)
[2018-04-03] MEDS ORDERED: TRIMETHOBENZAMIDE 300 MG CAP PO SCH (18:00)
[2018-04-03] MEDS ORDERED: traMADol 50 MG TAB PO SCH (18:00)
[2018-04-03] MEDS ORDERED: DIVALPROEX ER 500 MG TAB.ER.24H PO SCH (21:00)
[2018-04-03] MEDS ORDERED: cloZAPine 100 MG TAB PO SCH (21:00)
--- NOTE | 2018-04-04 11:32 | ECHOF ---
Referral Reason:Rule out heart disease MEASUREMENTS -------- HEIGHT: 157.5 cm WEIGHT: 100.7 kg BP: 101/70 RVIDd: 1.9 cm (< 3.3) IVSd: 0.8 cm (0.6 - 1.1) LVIDd: 4.1 cm (3.9 - 5.3) LVPWd: 0.9 cm (0.6 - 1.1) IVSs: 1.0 cm LVIDs: 3.0 cm LVPWs: 1.1 cm LAESV Index (A-L): 11.13 ml/m Ao Diam: 2.6 cm (2.0 - 3.7) AV Cusp: 1.6 cm (1.5 - 2.6) LA Diam: 2.7 cm (2.7 - 3.8) MV E Jeferson: 0.94 m/s MV DecT: 270 ms MV A Jeferson: 1.03 m/s MV E/A Ratio: 0.92 FINDINGS -------- Sinus rhythm. This was a technically adequate study. The left ventricular size is normal. Left ventricular wall thickness is normal. Overall left vent ricular systolic function is low-normal with, an EF between 50 - 55 %. The right ventricle is normal in size and function. Normal LA size by volume 22+/-6 ml/m2. The right atrium is normal in size. The aortic valve is trileaflet, and appears structurally normal. No aortic stenosis or regurgitation. The mitral valve is normal. There is trace mitral regurgitation. Trace tricuspid regurgitation present. Right ventricular systolic pressure is normal at < 35 mmHg. There is no evidence of pulmonary hypertension. Trace/mild (physiologic) pulmonic regurgitation. The aortic root size is normal. Normal inferior vena cava with normal inspiratory collapse consistent with estimated right atrial pre ssure of 5 mmHg. There is no pericardial effusion. CONCLUSIONS -------- 1. Sinus rhythm. 2. This was a technically adequate study. 3. The left ventricular size is normal. 4. Left ventricular wall thickness is normal. 5. Overall left ventricular systolic function is low-normal with, an EF between 50 - 55 %. 6. Normal LA size by volume 22+/-6 ml/m2. 7. The aortic valve is trileaflet, and appears structurally normal. No aortic stenosis or regurgitati on. 8. There is trace mitral regurgitation. 9. Trace tricuspid regurgitation present. 10. Right ventricular systolic pressure is normal at < 35 mmHg. 11. There is no evidence of pulmonary hypertension. 12. Trace/mild (physiologic) pulmonic regurgitation. 13. The aortic root size is normal. 14. There is no pericardial effusion. QC SCIENTIST: Conrado Blackmon RDCS
== END 2018-04-03 19:47 | disposition home or self-care (01) ==
LOC: EC 22:16 → 3OBS 04-03 00:56
PROVIDERS: ADMIT Internal Medicine; ATTEND Internal Medicine
DX: R07.89 Other chest pain (principal); R06.00 Dyspnea, unspecified; Z87.442 Personal history of urinary calculi; K58.9 Irritable bowel syndrome, unspecified; J45.909 Unspecified asthma, uncomplicated; I10 Essential (primary) hypertension; F43.10 Post-traumatic stress disorder, unspecified; F41.0 Panic disorder [episodic paroxysmal anxiety]; F32.9 Major depressive disorder, single episode, unspecified; F25.9 Schizoaffective disorder, unspecified; J44.9 Chronic obstructive pulmonary disease, unspecified; E66.9 Obesity, unspecified; Z68.41 Body mass index [BMI] 40.0-44.9, adult; E86.0 Dehydration; F17.210 Nicotine dependence, cigarettes, uncomplicated; R74.8 Abnormal levels of other serum enzymes; K21.9 Gastro-esophageal reflux disease without esophagitis; Z87.820 Personal history of traumatic brain injury; Z79.3 Long term (current) use of hormonal contraceptives; Z79.51 Long term (current) use of inhaled steroids; Z79.899 Other long term (current) drug therapy; Z88.8 Allergy status to other drugs, medicaments and biological substances; Z88.0 Allergy status to penicillin; Z88.2 Allergy status to sulfonamides; R61 Generalized hyperhidrosis
CPT/HCPCS: 99285; 96374 ×2; 96361 ×4; 96376; 36415; 94640; 93005; 93306; 85379; 80053; 80076; 82550; 82553; 84484; 85025; 85610; 85730; 80306; 71046; G0378; J2270 ×2

== ENCOUNTER 2018-04-04 18:52 | Emergency (ER) | payer OTHER ==
[2018-04-04 19:53] LABS: Appearance,Urine Clear (Clear); Bacteria,Urine Rare /hpf; Bilirubin,Urine Negative (Negative); Blood,Urine Negative (Negative); Color,Urine Yellow; Glucose,Urine (UA) Negative (Negative); Ketones,Urine Negative (Negative); Leukocyte Esterase,Urine Trace (Negative); Mucus,Urine Rare /hpf; Nitrite,Urine Negative (Negative); PH, Urine 6.5 (5.0-8.0); Protein,Urine Negative (Negative); RBC,Urine 1 /hpf (0-5); Specific Gravity,Urine 1.016 (1.001-1.035); Squamous Epithelial Cell,Urine 1 /hpf (0-4); Urobilinogen,Urine <2.0 mg/dL (<2.0); WBC,Urine 2 /hpf (0-5)
[2018-04-04 20:02] LABS: Amphetamine Screen,Urine Not Detected (NotDetected); Barbiturate Screen,Urine Not Detected (NotDetected); Benzodiazepines Screen,Urine Not Detected (NotDetected); Cocaine Screen,Urine Not Detected (NotDetected); Methadone Screen, Urine Not Detected (NotDetected); Opiate Screen,Urine Not Detected (NotDetected); Oxycodone Screen, Urine Not Detected (NotDetected); Phencyclidine Screen,Urine Not Detected (NotDetected); Tricyclic Antidepressant,Urine Not Detected (NotDetected); Urn Cannabinoid Scrn Not Detected (NotDetected)
[2018-04-04 20:05] VITALS: PULSE 97
[2018-04-04] MEDS ORDERED: ONDANSETRON ODT 4 MG TAB PO STA (20:26)
[2018-04-04] MEDS ORDERED: KETOROLAC 30 MG/ML 1 ML VIAL IM STA (20:26)
--- NOTE | 2018-04-04 20:37 | ED ---
Nausea/Vomiting/Diarrhea HPI - General Chief complaint: Nausea/Vomiting/Diarrhea Stated complaint: CHEST PAIN Time Seen by Provider: 04/04/18 19:38 Source: patient Mode of arrival: wheelchair Limitations: no limitations - History of Present Illness Initial comments: 23-year-old female patient presents to the emergency department today for evaluation of nausea and left-sided chest pain. Patient states that she has had this pain on and off for the last 5 days. Patient states that she was admitted a couple of days ago and left AGAINST MEDICAL ADVICE yesterday because she was feeling better. Patient states that today the pain returned. States that she has not taking anything for her discomfort. Patient states she has been nauseated but has not vomited. She denies any abdominal pain. States that she has not taking her usual medications and last 2-3 days. Patient denies any new medications. Denies any change to her physical activities. Patient denies any shortness of breath or cough. She denies any recent travel or sick contacts. Patient denies any recent rash, diarrhea, constipation, numbness, tingling, dizziness, weakness, hematuria, dysuria, urinary urgency, urinary frequency, headache, visual changes, or any other complaints. - Related Data Home Medications Medication Instructions Recorded Confirmed Budesonide [Pulmicort Flexhaler] 2 puff INHALATION RT-BID 02/11/18 04/04/18 Cholecalciferol [Vitamin D3] 5,000 unit PO DAILY 02/11/18 04/04/18 Docusate [Colace] 100 mg PO BID 02/11/18 04/04/18 Divalproex ER [Depakote ER] 500 mg PO HS 04/02/18 04/04/18 Previous Rx's Medication Instructions Recorded Naproxen 500 mg PO AC-BID PRN #30 tablet 04/02/18 cloZAPine [Clozaril] 200 mg PO HS #60 tab 04/02/18 hydrOXYzine PAMOATE [Vistaril] 50 mg PO AC-BID PRN #60 capsule 04/02/18 traZODone HCL [Desyrel] 50 mg PO HS PRN #30 tab 04/02/18 Ibuprofen [Motrin] 600 mg PO Q8HR PRN #30 tab 04/04/18 Ondansetron [Zofran ODT] 4 mg PO Q8HR PRN #10 tab 04/04/18 Allergies Allergy/AdvReac Type Severity Reaction Status Date / Time Penicillins Allergy Severe Anaphylaxis Verified 04/04/18 19:21 Sulfa (Sulfonamide Allergy Severe Anaphylaxis Verified 04/04/18 19:21 Antibiotics) diphenhydramine HCl Allergy Rash/Hives Verified 04/04/18 19:21 [From Benadryl] Review of Systems ROS Statement: Those systems with pertinent positive or pertinent negative responses have been documented in the HPI. ROS Other: All systems not noted in ROS Statement are negative. 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 Past Anesthesia/Blood Transfusion Reactions: No Reported Reaction Additional Past Anesthesia/Blood Transfusion Reaction / Comment(s): Patient does not believe she has had a reaction to anesthesia. Past Psychological History: Anxiety, Depression, Panic Disorder, PTSD, Schizoaffective Disorder, Schizophrenia Smoking Status: Current every day smoker Past Alcohol Use History: None Reported Past Drug Use History: Marijuana, Opiates - Past Family History Mother Family Medical History: No Reported History Father Family Medical History: No Reported History Additional Family Medical History / Comment(s): bipolar, sever seasonal allergies Brother(s) Family Medical History: No Reported History Sister(s) Family Medical History: No Reported History General Exam Limitations: no limitations General appearance: alert, in no apparent distress, other (This is a well- developed, well-nourished adult female patient in no acute distress. Vital signs upon presentation are temperature 98.1F, pulse 100, respirations 20, blood pressure 108/60, pulse ox 100% on room air.) Eye exam: Present: normal appearance, PERRL, EOMI. Absent: scleral icterus, conjunctival injection, periorbital swelling ENT exam: Present: normal exam, normal oropharynx, mucous membranes moist Respiratory exam: Present: normal lung sounds bilaterally, chest wall tenderness (Left-sided chest wall tenderness). Absent: respiratory distress, wheezes, rales, rhonchi, stridor Cardiovascular Exam: Present: regular rate, normal rhythm, normal heart sounds. Absent: systolic murmur, diastolic murmur, rubs, gallop, clicks GI/Abdominal exam: Present: soft, normal bowel sounds. Absent: distended, tenderness, guarding, rebound, rigid Neurological exam: Present: alert, oriented X3, CN II-XII intact Psychiatric exam: Present: normal affect, normal mood Skin exam: Present: warm, dry, intact, normal color. Absent: rash Course Vital Signs 04/04/18 04/04/18 04/04/18 19:02 19:30 20:04 Temperature 98.1 F Pulse Rate 100 97 Pulse Rate [ 90 Bilateral Radial] Respiratory 20 17 Rate Blood Pressure 108/68 112/56 O2 Sat by Pulse 100 99 Oximetry Medical Decision Making - Medical Decision Making 23-year-old female patient presented to the emergency department today for complaints of chest pain and nausea. Physical examination did reveal reproducible pain to the left side of the chest wall. Vital signs are stable. Drug screen urinalysis were normal. Patient is not . Chest x-ray showed no acute cardio pulmonary process. I also did review testing from patient's recent admission including echocardiogram and patient's inpatient notes. Did discuss findings and results with the patient. As patient's pain is reproducible it is felt her pain is more musculoskeletal in origin. She will be treated with anti inflammatories. She'll be discharged at this time to follow- up with her primary care physician for recheck in 1-2 days. Return parameters discussed in detail. She verbalizes understanding and agrees with this plan. - Lab Data Lab Results 04/04/18 04/04/18 Range/Units 19:28 19:28 Urine Color Yellow Urine Appearance Clear (Clear) Urine pH 6.5 (5.0-8.0) Ur Specific [place] 1.016 (1.001-1.035) Urine Protein Negative (Negative) Urine Glucose (UA) Negative (Negative) Urine Ketones Negative (Negative) Urine Blood Negative (Negative) Urine Nitrite Negative (Negative) Urine Bilirubin Negative (Negative) Urine Urobilinogen <2.0 (<2.0) mg/dL Ur Leukocyte Esterase Trace H (Negative) Urine RBC 1 (0-5) /hpf Urine WBC 2 (0-5) /hpf Ur Squamous Epith Cells 1 (0-4) /hpf Urine Bacteria Rare H (None) /hpf Urine Mucus Rare H (None) /hpf Urine HCG, Qual Not Detected (Not Detectd) Urine Opiates Screen Not Detected (NotDetected) Ur Oxycodone Screen Not Detected (NotDetected) Urine Methadone Screen Not Detected (NotDetected) Ur Propoxyphene Screen Not Detected (NotDetected) Ur Barbiturates Screen Not Detected (NotDetected) U Tricyclic Antidepress Not Detected (NotDetected) Ur Phencyclidine Scrn Not Detected (NotDetected) Ur Amphetamines Screen Not Detected (NotDetected) U Methamphetamines Scrn Not Detected (NotDetected) U Benzodiazepines Scrn Not Detected (NotDetected) Urine Cocaine Screen Not Detected (NotDetected) U Marijuana (THC) Screen Not Detected (NotDetected) - Radiology Data Radiology results: report reviewed, image reviewed Two-view x-ray of the chest is obtained. Heart media's enema normal. Lungs are clear. Diaphragm is normal. Bony thorax appears normal. Impression by Dr. Blanc shows normal chest with no change. Disposition Clinical Impression: Chest pain, Costochondritis Disposition: HOME SELF-CARE Condition: Good Instructions: Chest Pain (ED), Costochondritis (ED) Additional Instructions: Take medications as directed. Follow-up with your primary care physician for recheck in 1-2 days. Return here immediately for any new, worsening, or concerning symptoms. Prescriptions: Ibuprofen [Motrin] 600 mg PO Q8HR PRN #30 tab PRN Reason: Pain Ondansetron [Zofran ODT] 4 mg PO Q8HR PRN #10 tab PRN Reason: Nausea Is patient prescribed a controlled substance at d/c from ED?: No Referrals: [facility] [Primary Care Provider] - 1-2 days Time of Disposition: 21:02
--- NOTE | 2018-04-04 20:57 | XR ---
EXAMINATION TYPE: XR chest 2V DATE OF EXAM: 04/04/2018 COMPARISON: 04/02/2018 HISTORY: Chest pain TECHNIQUE: Frontal and lateral views of the chest are obtained. FINDINGS: Heart and mediastinum are normal. Lungs are clear. Diaphragm is normal. Bony thorax appear s normal. IMPRESSION: Normal chest. No change.
[2018-04-04 21:10] VITALS: BP 117/66; RESP 18; TEMP 98.3
== END 2018-04-04 21:10 | disposition home or self-care (01) ==
LOC: EC 18:52
DX: M94.0 Chondrocostal junction syndrome [Tietze] (principal); R11.0 Nausea; J45.909 Unspecified asthma, uncomplicated; F20.9 Schizophrenia, unspecified; F41.0 Panic disorder [episodic paroxysmal anxiety]; F32.9 Major depressive disorder, single episode, unspecified; F43.10 Post-traumatic stress disorder, unspecified; F17.200 Nicotine dependence, unspecified, uncomplicated; Z79.51 Long term (current) use of inhaled steroids; Z79.899 Other long term (current) drug therapy; Z88.0 Allergy status to penicillin; Z88.2 Allergy status to sulfonamides; Z88.8 Allergy status to other drugs, medicaments and biological substances
CPT/HCPCS: 93005; 81001; 81025; 80306; 71046; 99284; 96372; J1885

== ENCOUNTER 2018-06-09 18:01 | Emergency (ER) | payer OTHER ==
[2018-06-09] MEDS ORDERED: SODIUM CHLORIDE 0.9% 1,000 ML IV STA (18:27)
[2018-06-09] MEDS ORDERED: MORPHINE SULFATE 4 MG/ML SYRINGE IV STA (18:27)
[2018-06-09] MEDS ORDERED: KETOROLAC 30 MG/ML 1 ML VIAL IVP STA (18:27)
--- NOTE | 2018-06-09 18:57 | ED ---
Abdominal Pain HPI - General Chief Complaint: Abdominal Pain Stated Complaint: Abd Pain Time Seen by Provider: 06/09/18 18:08 Source: patient Mode of arrival: ambulatory Limitations: no limitations - History of Present Illness Initial Comments: Patient is a 22-year-old female that presents for 2 weeks of abdominal pain. The patient states that it is been worsening and stabbing in the left lower quadrant. He was initially intermittent but now is constant. The pain does not radiate and is better with rest. Associated with nausea and vomiting but no diarrhea or fevers/chills. She also denies any dysuria and states her last menstrual period was one month ago. She has been told that she had a left- sided ovarian cyst but it has since went away. She also denies any vaginal discharge or bleeding. - Related Data Home Medications Medication Instructions Recorded Confirmed Budesonide [Pulmicort Flexhaler] 2 puff INHALATION RT-BID 02/11/18 05/27/18 Cholecalciferol [Vitamin D3] 5,000 unit PO DAILY 02/11/18 05/27/18 Previous Rx's Medication Instructions Recorded Albuterol Inhaler [Ventolin Hfa 2 puff INHALATION RT-QID PRN 30 06/06/18 Inhaler] Days #1 puff Budesonide-Formot 160-4.5 Mcg 2 puff INHALATION RT-BID 30 Days 06/06/18 [Symbicort 160-4.5 Mcg Inhaler] #1 puff Naproxen 500 mg PO AC-BID PRN #30 tablet 06/06/18 Nicotine Polacrilex [Quit 2] 2 mg BUCCAL TID 30 Days #90 lozenge 06/06/18 Pramipexole [Mirapex] 0.5 mg PO HS 30 Days #30 tab 06/06/18 hydrOXYzine PAMOATE [Vistaril] 50 mg PO AC-BID PRN #60 capsule 06/06/18 lamoTRIgine [LaMICtal] 100 mg PO 2100 30 Days #30 tab 06/06/18 Nystatin 100,000 Unit/gm Oint 1 applic TOPICAL BID #15 gm 06/07/18 [Mycostatin Oint] Allergies Allergy/AdvReac Type Severity Reaction Status Date / Time Penicillins Allergy Severe Anaphylaxis Verified 06/09/18 18:05 Sulfa (Sulfonamide Allergy Severe Anaphylaxis Verified 06/09/18 18:05 Antibiotics) diphenhydramine HCl Allergy Rash/Hives Verified 06/09/18 18:05 [From Benadryl] Review of Systems ROS Statement: Those systems with pertinent positive or pertinent negative responses have been documented in the HPI. Constitutional: Negative for chills, fatigue and fever. HENT: Negative for congestion. Respiratory: Negative for chest tightness, shortness of breath and wheezing. Negative for cough Cardiovascular: Negative for chest pain and palpitations. Gastrointestinal: Positive for abdominal pain. Negative for abdominal distention , diarrhea, positive for nausea and vomiting. Genitourinary: Negative for dysuria. Musculoskeletal: Negative for back pain, neck pain and neck stiffness. Skin: Negative for color change. Neurological: Negative for dizziness, speech difficulty, weakness and light- headedness. Psychiatric/Behavioral: Negative for agitation and confusion. Negative for anxiety ROS Other: All systems not noted in ROS Statement are negative. 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 Past Anesthesia/Blood Transfusion Reactions: No Reported Reaction Additional Past Anesthesia/Blood Transfusion Reaction / Comment(s): Patient does not believe she has had a reaction to anesthesia. Past Psychological History: Anxiety, Depression, Panic Disorder, PTSD, Schizoaffective Disorder, Schizophrenia Smoking Status: Current every day smoker Past Alcohol Use History: None Reported Past Drug Use History: None Reported - Past Family History Mother Family Medical History: No Reported History Father Family Medical History: No Reported History Additional Family Medical History / Comment(s): bipolar, sever seasonal allergies Brother(s) Family Medical History: No Reported History Sister(s) Family Medical History: No Reported History General Exam - General Exam Comments Initial Comments: Constitutional: Pt is oriented to person, place, and time. Pt appears well- developed and well-nourished. No distress. HENT: Head: Normocephalic and atraumatic. Eyes: EOM are normal. Neck: Normal range of motion. Neck supple. Cardiovascular: Normal rate, regular rhythm, S1 normal, S2 normal and normal heart sounds. Exam reveals no gallop and no friction rub. No murmur heard. Pulmonary/Chest: Effort normal and breath sounds normal. No tachypnea and no bradypnea. No respiratory distress. No wheezes or rales noted. Abdominal: Soft. Bowel sounds are normal. Pt exhibits no shifting dullness, no distension, no pulsatile liver, no fluid wave, no abdominal bruit and no ascites. There is mild tenderness to the left lower quadrant. There is no rigidity, no rebound, no guarding, no tenderness at McBurney's point and negative Burr's sign. Musculoskeletal: Normal range of motion. Neurological: Pt is alert and oriented to person, place, and time. No cranial nerve deficit. Skin: Skin is warm and dry. No rash noted. Pt is not diaphoretic. No erythema. No pallor. Psychiatric: Pt has a normal mood and affect. Pt behavior is normal. Thought content normal. Limitations: no limitations Course Vital Signs 06/09/18 18:03 Temperature 97.5 F L Pulse Rate 76 Respiratory 20 Rate Blood Pressure 129/80 O2 Sat by Pulse 100 Oximetry Medical Decision Making - Medical Decision Making Laboratory studies showed that there is no evidence of leukocytosis, transaminitis, and CT of the abdomen as well as ultrasound of the pelvis was completed to evaluate for emergent pathology such as ovarian torsion. Ultrasound did display good arterial and venous flow to bilateral ovaries and based on physical exam, there is very low suspicion of ovarian torsion. CT of the abdomen was also performed and showed fatty liver disease but no other emergent pathology which could be causing pain in the left lower quadrant.It was explained that while there does not appear to be an emergent process, the etiology of the symptoms are still unclear but possibly related to impending menses and may need further workup as an outpatient if symptoms continue. Explained all labs and diagnostic test results and that we will discharge the patient home and patient is to follow up with PCP in 1-2 days and return to the ED if symptoms worsen. Pt is agreeable to plan. - Lab Data Result diagrams: 06/09/18 19:13 06/09/18 19:13 Lab Results 06/09/18 06/09/18 06/09/18 Range/Units 19:13 19:13 19:21 WBC 9.4 (3.8-10.6) k/uL RBC 4.59 (3.80-5.40) m/uL Hgb 12.6 (11.4-16.0) gm/dL Hct 37.5 (34.0-46.0) % MCV 81.7 (80.0-100.0) fL MCH 27.4 (25.0-35.0) pg MCHC 33.5 (31.0-37.0) g/dL RDW 15.1 (11.5-15.5) % Plt Count 221 (150-450) k/uL Neutrophils % 63 % Lymphocytes % 29 % Monocytes % 4 % Eosinophils % 2 % Basophils % 0 % Neutrophils # 5.9 (1.3-7.7) k/uL Lymphocytes # 2.7 (1.0-4.8) k/uL Monocytes # 0.4 (0-1.0) k/uL Eosinophils # 0.2 (0-0.7) k/uL Basophils # 0.0 (0-0.2) k/uL Sodium 140 (137-145) mmol/L Potassium 4.3 (3.5-5.1) mmol/L Chloride 108 H (98-107) mmol/L Carbon Dioxide 22 (22-30) mmol/L Anion Gap 10 mmol/L BUN 9 (7-17) mg/dL Creatinine 0.78 (0.52-1.04) mg/dL Est GFR (CKD-EPI)AfAm >90 (>60 ml/min/1.73 sqM) Est GFR (CKD-EPI)NonAf >90 (>60 ml/min/1.73 sqM) Glucose 91 (74-99) mg/dL Calcium 9.6 (8.4-10.2) mg/dL Total Bilirubin 0.2 (0.2-1.3) mg/dL AST 36 (14-36) U/L ALT 66 H (9-52) U/L Alkaline Phosphatase 121 (38-126) U/L Total Protein 7.0 (6.3-8.2) g/dL Albumin 4.0 (3.5-5.0) g/dL Urine Color Yellow Urine Appearance Clear (Clear) Urine pH 6.5 (5.0-8.0) Ur Specific [place] 1.026 (1.001-1.035) Urine Protein Trace H (Negative) Urine Glucose (UA) Negative (Negative) Urine Ketones Trace H (Negative) Urine Blood Negative (Negative) Urine Nitrite Negative (Negative) Urine Bilirubin Negative (Negative) Urine Urobilinogen 2.0 (<2.0) mg/dL Ur Leukocyte Esterase Negative (Negative) Urine HCG, Qual (Not Detectd) 06/09/18 Range/Units 19:21 WBC (3.8-10.6) k/uL RBC (3.80-5.40) m/uL Hgb (11.4-16.0) gm/dL Hct (34.0-46.0) % MCV (80.0-100.0) fL MCH (25.0-35.0) pg MCHC (31.0-37.0) g/dL RDW (11.5-15.5) % Plt Count (150-450) k/uL Neutrophils % % Lymphocytes % % Monocytes % % Eosinophils % % Basophils % % Neutrophils # (1.3-7.7) k/uL Lymphocytes # (1.0-4.8) k/uL Monocytes # (0-1.0) k/uL Eosinophils # (0-0.7) k/uL Basophils # (0-0.2) k/uL Sodium (137-145) mmol/L Potassium (3.5-5.1) mmol/L Chloride (98-107) mmol/L Carbon Dioxide (22-30) mmol/L Anion Gap mmol/L BUN (7-17) mg/dL Creatinine (0.52-1.04) mg/dL Est GFR (CKD-EPI)AfAm (>60 ml/min/1.73 sqM) Est GFR (CKD-EPI)NonAf (>60 ml/min/1.73 sqM) Glucose (74-99) mg/dL Calcium (8.4-10.2) mg/dL Total Bilirubin (0.2-1.3) mg/dL AST (14-36) U/L ALT (9-52) U/L Alkaline Phosphatase (38-126) U/L Total Protein (6.3-8.2) g/dL Albumin (3.5-5.0) g/dL Urine Color Urine Appearance (Clear) Urine pH (5.0-8.0) Ur Specific [place] (1.001-1.035) Urine Protein (Negative) Urine Glucose (UA) (Negative) Urine Ketones (Negative) Urine Blood (Negative) Urine Nitrite (Negative) Urine Bilirubin (Negative) Urine Urobilinogen (<2.0) mg/dL Ur Leukocyte Esterase (Negative) Urine HCG, Qual Not Detected (Not Detectd) Disposition Clinical Impression: Fatty liver, Abdominal pain, left lower quadrant Disposition: HOME SELF-CARE Condition: Poor Instructions: Abdominal Pain (ED) Is patient prescribed a controlled substance at d/c from ED?: No Referrals: [facility] [Primary Care Provider] - 1-2 days Time of Disposition: 22:38
[2018-06-09] MEDS ORDERED: ONDANSETRON 4 MG/2 ML VIAL IVP STA (19:23)
[2018-06-09 19:49] LABS: Basophils % (A) 0 %; Eosinophils # (A) 0.2 k/uL (0-0.7); Eosinophils % (A) 2 %; HCT 37.5 % (34.0-46.0); HGB 12.6 gm/dL (11.4-16.0); Lymphocytes # (A) 2.7 k/uL (1.0-4.8); Lymphocytes % (A) 29 %; MCH 27.4 pg (25.0-35.0); MCHC 33.5 g/dL (31.0-37.0); MCV 81.7 fL (80.0-100.0); Mean Platelet Volume 8.2; Monocytes # (A) 0.4 k/uL (0-1.0); Monocytes % (A) 4 %; Neutrophils # (A) 5.9 k/uL (1.3-7.7); Neutrophils % (A) 63 %; Platelet Count 221 k/uL (150-450); RBC 4.59 m/uL (3.80-5.40); RDW 15.1 % (11.5-15.5); WBC 9.4 k/uL (3.8-10.6)
--- NOTE | 2018-06-09 19:57 | US ---
EXAMINATION TYPE: US transvaginal DATE OF EXAM: 06/09/2018 COMPARISON: 10/28/2014 CLINICAL HISTORY: Pain. Left side pain. PCOS per patient. Irregular menses. TECHNIQUE: Transvaginal (TV). Date of LMP: 04/26/2018, G0 EXAM MEASUREMENTS: Uterus: 6.7 x 3.6 x 2.7 cm Endometrial Stripe: 0.7 cm Right Ovary: 3.9 x 2.1 x 2.4 cm Left Ovary: 3.6 x 2.7 x 2.1 cm 1. Uterus: Anteverted wnl 2. Endometrium: wnl, endometrial movement seen, correlate with the menstrual cycle stage. This may b e impending menstruation. 3. Right Ovary: multiple follicles 4. Left Ovary: multiple follicles Spectral, color and waveform doppler imaging shows good arterial and venous flow within the ovaries ; there is no evidence for ovarian torsion. 5. Bilateral Adnexa: wnl 6. Posterior cul-de-sac: free fluid IMPRESSION: 1. Multiple bilateral ovarian follicles. 2. No acute suspicious changes.
[2018-06-09 19:58] LABS: Appearance,Urine Clear (Clear); Bilirubin,Urine Negative (Negative); Blood,Urine Negative (Negative); Color,Urine Yellow; Glucose,Urine (UA) Negative (Negative); Ketones,Urine Trace (Negative); Leukocyte Esterase,Urine Negative (Negative); Nitrite,Urine Negative (Negative); PH, Urine 6.5 (5.0-8.0); Protein,Urine Trace (Negative); Specific Gravity,Urine 1.026 (1.001-1.035)
[2018-06-09 20:02] LABS: ALT 66 U/L (9-52); AST 36 U/L (14-36); Alkaline Phosphatase 121 U/L (38-126); Anion Gap 10 mmol/L; Blood Urea Nitrogen 9 mg/dL (7-17); Calcium 9.6 mg/dL (8.4-10.2); Carbon Dioxide 22 mmol/L (22-30); Chloride 108 mmol/L (98-107); Glucose 91 mg/dL (74-99); Potassium 4.3 mmol/L (3.5-5.1); Sodium 140 mmol/L (137-145); Total Bilirubin 0.2 mg/dL (0.2-1.3)
[2018-06-09] MEDS ORDERED: HYDROmorphone 1 MG/ML 1 ML SYRINGE IVP STA (20:45)
[2018-06-09] MEDS ORDERED: PROCHLORPERAZINE 10 MG TAB PO STA (20:49)
--- NOTE | 2018-06-09 22:05 | CT ---
EXAMINATION TYPE: CT abdomen pelvis w con DATE OF EXAM: 06/09/2018 COMPARISON: 04/28/2014 INDICATION: Left sided pain with nausea DLP: 1246.8 mGycm, Automated exposure control for dose reduction was used. CONTRAST: 100 mL of Isovue 300. Study performed without Oral Contrast TECHNIQUE: Axial images were obtained from above the diaphragm to the pubic rami in the axial plane a t 5 mm thick sections. Reconstructed images are reviewed on the computer in the coronal plane. FINDINGS: Limited CT sections are obtained the lung bases. The lung bases are clear. CT ABDOMEN: Liver: There is moderate fatty infiltration throughout the liver. No discrete masses or cysts are magalis dent. Spleen: Normal Pancreas: Normal Adrenal glands: The adrenal glands are normal. Gallbladder: Normal Kidneys: No masses are evident. No hydronephrosis is present. No cysts are present. Delayed images were obtained through the kidneys, which remain unremarkable. No ureteral stones are identified. Aorta: Normal Inferior vena cava: Normal. CT PELVIS: Loops of bowel within the abdomen and pelvis are normal. Study is without oral contrast limiting bowel evaluation. Appendix: Not identified. No suspicious tubular structures or inflammatory changes are evident. Urinary bladder: Normal. Genitourinary structures: Uterus is normal. Adnexal regions are normal. No free fluid is within the p xiao. Osseous structures: No suspicious lytic or sclerotic lesions. IMPRESSIONS: 1. Moderate fatty infiltration the liver.
[2018-06-09 22:50] VITALS: BP 118/73; PULSE 83; RESP 16; TEMP 97.9
== END 2018-06-09 22:50 | disposition home or self-care (01) ==
LOC: EC 18:01
DX: K76.0 Fatty (change of) liver, not elsewhere classified (principal); J45.909 Unspecified asthma, uncomplicated; F17.200 Nicotine dependence, unspecified, uncomplicated; Z87.820 Personal history of traumatic brain injury; Z87.42 Personal history of other diseases of the female genital tract; Z87.442 Personal history of urinary calculi; Z96.0 Presence of urogenital implants; Z98.890 Other specified postprocedural states; Z79.51 Long term (current) use of inhaled steroids; Z88.0 Allergy status to penicillin; Z88.2 Allergy status to sulfonamides; Z88.8 Allergy status to other drugs, medicaments and biological substances
CPT/HCPCS: 36415; 80053; 85025; 81003; 81025; 93975; 76830; 74177; 99284; 96374; 96375 ×3; 96361; S0183; J2270; J2405; J1885; J1170; Q9967

== ENCOUNTER 2018-06-20 22:48 | Emergency (ER) | payer OTHER ==
[2018-06-20 23:07] VITALS: RESP 18
[2018-06-21] MEDS ORDERED: NAPROXEN 250 MG TAB PO STA (00:13)
[2018-06-21] MEDS ORDERED: PANTOPRAZOLE 40 MG TABLET PO STA (00:13)
[2018-06-21] MEDS ORDERED: ONDANSETRON ODT 4 MG TAB PO STA (00:13)
[2018-06-21] MEDS ORDERED: DICYCLOMINE 20 MG TAB PO STA (00:13)
--- NOTE | 2018-06-21 00:14 | ED ---
Abdominal Pain HPI - General Chief Complaint: Abdominal Pain Stated Complaint: Abd Pain Time Seen by Provider: 06/20/18 23:39 Source: patient, RN notes reviewed, old records reviewed Mode of arrival: ambulatory Limitations: no limitations - History of Present Illness Initial Comments: This is a 23-year-old female the ER for evaluation. Patient's well-known to this emergency room for evaluation of bowel pain psychiatric illness as well. Patient states she's having left lower quadrant abdominal pain mild nausea no vomiting no episodes of bowel or bladder issues, no fevers. No prior sick contacts or travel history. MD Complaint: abdominal pain -: unknown Location: diffuse Radiation: LLQ Migration to: LLQ, epigastric Severity: mild Severity scale (1-10): 2 Quality: aching Consistency: constant Improves With: nothing Worsens With: nothing Associated Symptoms: denies other symptoms - Related Data Home Medications Medication Instructions Recorded Confirmed Ergocalciferol (Vitamin D2) 50,000 unit PO Q14D 06/20/18 06/20/18 [Vitamin D2] Paliperidone IM [Invega Sustenna] 234 mg IM Q28D 06/20/18 06/20/18 hydrOXYzine PAMOATE [Vistaril] 100 mg PO HS 06/20/18 06/20/18 lamoTRIgine [LaMICtal] 100 mg PO HS 06/20/18 06/20/18 Previous Rx's Medication Instructions Recorded Albuterol Inhaler [Ventolin Hfa 2 puff INHALATION RT-QID PRN 30 06/06/18 Inhaler] Days #1 puff Budesonide-Formot 160-4.5 Mcg 2 puff INHALATION RT-BID 30 Days 06/06/18 [Symbicort 160-4.5 Mcg Inhaler] #1 puff Naproxen 500 mg PO AC-BID PRN #30 tablet 06/06/18 Pramipexole [Mirapex] 0.5 mg PO HS 30 Days #30 tab 06/06/18 Nystatin 100,000 Unit/gm Oint 1 applic TOPICAL BID #15 gm 06/07/18 [Mycostatin Oint] Dicyclomine [Bentyl] 20 mg PO QID #60 tablet 06/21/18 Famotidine [Pepcid] 20 mg PO BID #60 tablet 06/21/18 Ondansetron Odt [Zofran ODT] 4 mg PO Q8HR PRN #30 tab 06/21/18 Allergies Allergy/AdvReac Type Severity Reaction Status Date / Time Penicillins Allergy Severe Anaphylaxis Verified 06/20/18 23:38 Sulfa (Sulfonamide Allergy Severe Anaphylaxis Verified 06/20/18 23:38 Antibiotics) diphenhydramine HCl Allergy Rash/Hives Verified 06/20/18 23:38 [From Benadryl] Review of Systems ROS Statement: Those systems with pertinent positive or pertinent negative responses have been documented in the HPI. ROS Other: All systems not noted in ROS Statement are negative. 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 Past Anesthesia/Blood Transfusion Reactions: No Reported Reaction Additional Past Anesthesia/Blood Transfusion Reaction / Comment(s): Patient does not believe she has had a reaction to anesthesia. Past Psychological History: Anxiety, Depression, Panic Disorder, PTSD, Schizoaffective Disorder, Schizophrenia Smoking Status: Current every day smoker Past Alcohol Use History: None Reported Past Drug Use History: None Reported - Past Family History Mother Family Medical History: No Reported History Father Family Medical History: No Reported History Additional Family Medical History / Comment(s): bipolar, sever seasonal allergies Brother(s) Family Medical History: No Reported History Sister(s) Family Medical History: No Reported History General Exam Limitations: no limitations General appearance: alert, in no apparent distress Head exam: Present: atraumatic, normocephalic, normal inspection Eye exam: Present: normal appearance, PERRL, EOMI. Absent: scleral icterus, conjunctival injection, periorbital swelling ENT exam: Present: normal exam, mucous membranes moist Neck exam: Present: normal inspection. Absent: tenderness, meningismus, lymphadenopathy Respiratory exam: Present: normal lung sounds bilaterally. Absent: respiratory distress, wheezes, rales, rhonchi, stridor Cardiovascular Exam: Present: regular rate, normal rhythm, normal heart sounds. Absent: systolic murmur, diastolic murmur, rubs, gallop, clicks GI/Abdominal exam: Present: soft, normal bowel sounds. Absent: distended, tenderness, guarding, rebound, rigid Extremities exam: Present: normal inspection, full ROM, normal capillary refill. Absent: tenderness, pedal edema, joint swelling, calf tenderness Back exam: Present: normal inspection Neurological exam: Present: alert, oriented X3, CN II-XII intact Psychiatric exam: Present: normal affect, normal mood Skin exam: Present: warm, dry, intact, normal color. Absent: rash Course Vital Signs 06/20/18 06/21/18 23:03 00:26 Temperature 98.5 F 97.4 F L Pulse Rate 90 79 Respiratory 18 18 Rate Blood Pressure 124/83 114/70 O2 Sat by Pulse 98 97 Oximetry - Reevaluation(s) Reevaluation #1: Record and prior ER visits were thoroughly reviewed Patient's physical exam is normal Medical Decision Making - Medical Decision Making 23-year-old female the ER for evasive abdominal pain. Patient has persisted evaluations for abdominal pain. Patient be given a symptomatically therapy in the ER, multiple ER visits and reviewed by myself, patient's in no acute distress and can be discharged home Disposition Clinical Impression: Abdominal pain, left lower quadrant Disposition: HOME SELF-CARE Condition: Good Instructions: Abdominal Pain (ED) Prescriptions: Dicyclomine [Bentyl] 20 mg PO QID #60 tablet Famotidine [Pepcid] 20 mg PO BID #60 tablet Ondansetron Odt [Zofran ODT] 4 mg PO Q8HR PRN #30 tab PRN Reason: nausea/vomiting Is patient prescribed a controlled substance at d/c from ED?: No Referrals: [facility] [Primary Care Provider] - 1-2 days
[2018-06-21 00:28] VITALS: BP 114/70; PULSE 79; TEMP 97.4
== END 2018-06-21 00:51 | disposition home or self-care (01) ==
LOC: EC 22:48
DX: R10.32 Left lower quadrant pain (principal); F41.0 Panic disorder [episodic paroxysmal anxiety]; F32.9 Major depressive disorder, single episode, unspecified; F20.9 Schizophrenia, unspecified; F43.10 Post-traumatic stress disorder, unspecified; E66.9 Obesity, unspecified; Z68.41 Body mass index [BMI] 40.0-44.9, adult; F17.200 Nicotine dependence, unspecified, uncomplicated; Z79.899 Other long term (current) drug therapy; Z88.0 Allergy status to penicillin; Z88.2 Allergy status to sulfonamides; Z88.8 Allergy status to other drugs, medicaments and biological substances; Z53.29 Procedure and treatment not carried out because of patient's decision for other reasons
CPT/HCPCS: 99284

== ENCOUNTER 2018-06-29 17:53 | Emergency (ER) | payer OTHER ==
[2018-06-29 18:14] VITALS: RESP 18
[2018-06-29] MEDS ORDERED: ONDANSETRON 4 MG/2 ML VIAL IVP STA ×2 (18:18→20:57)
[2018-06-29] MEDS ORDERED: SODIUM CHLORIDE 0.9% 1,000 ML IV ONE (18:18)
--- NOTE | 2018-06-29 19:05 | ED ---
General Adult HPI - General Chief complaint: Nausea/Vomiting/Diarrhea Stated complaint: vomiting Source: patient Mode of arrival: ambulatory Limitations: no limitations - History of Present Illness Initial comments: 23-year-old female past medical history of chronic abdominal pain, kidney stones , schizophrenia presenting today for chief complaint of abdominal pain. Patient states she has had abdominal pain for 2 months, she states she is evaluated here twice without findings. She states she was told she had a fatty liver. Patient was given gastroenterology follow-up by her primary care provider at [facility]. Patient states she has not scheduled an appointment yet. Patient states that abdominal pain persists, she describes as a diffuse a dull pain mostly left lower quadrant without radiation. She states that times the pain is in the mid abdomen and the right upper quadrant. Patient admits to occasional nausea, diarrhea and vomiting, she states that she notes increase vomiting with food. Denies hematemesis. She states that her symptoms including abdominal pain seemed to be alleviated by drinking water. Patient denies any fever, chills, night sweats, hematochezia, melena, vaginal discharge, dyspareunia, dysuria, urgency, frequency, hematuria or flank or back pain. Upon arrival patient appears couple, no signs of acute distress. Patient is able without difficulty, vital signs within acceptable limits. Remainder ROS negative, patient denies any recent shortness of breath, chest pain, numbness or tingling, constipation, headaches or visual changes, or any other complaints. LMP 3 weeks ago-normal. - Related Data Home Medications Medication Instructions Recorded Confirmed Ergocalciferol (Vitamin D2) 50,000 unit PO Q14D 06/20/18 06/20/18 [Vitamin D2] Paliperidone IM [Invega Sustenna] 234 mg IM Q28D 06/20/18 06/20/18 hydrOXYzine PAMOATE [Vistaril] 100 mg PO HS 06/20/18 06/20/18 lamoTRIgine [LaMICtal] 100 mg PO HS 06/20/18 06/20/18 Previous Rx's Medication Instructions Recorded Albuterol Inhaler [Ventolin Hfa 2 puff INHALATION RT-QID PRN 30 06/06/18 Inhaler] Days #1 puff Budesonide-Formot 160-4.5 Mcg 2 puff INHALATION RT-BID 30 Days 06/06/18 [Symbicort 160-4.5 Mcg Inhaler] #1 puff Naproxen 500 mg PO AC-BID PRN #30 tablet 06/06/18 Pramipexole [Mirapex] 0.5 mg PO HS 30 Days #30 tab 06/06/18 Nystatin 100,000 Unit/gm Oint 1 applic TOPICAL BID #15 gm 06/07/18 [Mycostatin Oint] Dicyclomine [Bentyl] 20 mg PO QID #60 tablet 06/21/18 Famotidine [Pepcid] 20 mg PO BID #60 tablet 06/21/18 Ondansetron Odt [Zofran ODT] 4 mg PO Q8HR PRN #30 tab 06/21/18 Allergies Allergy/AdvReac Type Severity Reaction Status Date / Time Penicillins Allergy Severe Anaphylaxis Verified 06/20/18 23:38 Sulfa (Sulfonamide Allergy Severe Anaphylaxis Verified 06/20/18 23:38 Antibiotics) diphenhydramine HCl Allergy Rash/Hives Verified 06/20/18 23:38 [From Sahci] Review of Systems ROS Statement: Those systems with pertinent positive or pertinent negative responses have been documented in the HPI. ROS Other: All systems not noted in ROS Statement are negative. Constitutional: Denies: fever, chills ENT: Denies: ear pain, throat pain Respiratory: Denies: cough, dyspnea, wheezes, hemoptysis, stridor Cardiovascular: Denies: chest pain, palpitations, dyspnea on exertion Endocrine: Denies: fatigue Gastrointestinal: Reports: abdominal pain, nausea, vomiting, diarrhea. 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 Past Anesthesia/Blood Transfusion Reactions: No Reported Reaction Additional Past Anesthesia/Blood Transfusion Reaction / Comment(s): Patient does not believe she has had a reaction to anesthesia. Past Psychological History: Anxiety, Depression, Panic Disorder, PTSD, Schizoaffective Disorder, Schizophrenia Smoking Status: Current every day smoker Past Alcohol Use History: None Reported Past Drug Use History: None Reported - Past Family History Mother Family Medical History: No Reported History Father Family Medical History: No Reported History Additional Family Medical History / Comment(s): bipolar, sever seasonal allergies Brother(s) Family Medical History: No Reported History Sister(s) Family Medical History: No Reported History General Exam - General Exam Comments Initial Comments: General: The patient is awake and alert, in no distress, and does not appear acutely ill. Eye: Pupils are equal, round and reactive to light, extra-ocular movements are intact. No nystagmus. There is normal conjunctiva bilaterally. No signs of icterus. Ears, nose, mouth and throat: There are moist mucous membranes and no oral lesions. Neck: The neck is supple, there is no tenderness or JVD. Cardiovascular: There is a regular rate and rhythm. No murmur, rub or gallop is appreciated. Respiratory: Lungs are clear to auscultation, respirations are non-labored, breath sounds are equal. No wheezes, stridor, rales, or rhonchi. Gastrointestinal: No noted diaphoresis, jaundice, pallor, protecting postures or squirming. Symmetrical pigmentation of abdomen without signs of inflammation. Striae noted Umbilicus mildline, inverted without swelling. No dilated veins. Abdomen contour obese, no noted abdominal distention. No visible masses. No peristalsis , aortic pulsations, or ventral hernia. Bowel sounds audible in all 4 quadrants , unremarkable. No friction rubs or venous hums. No epigastic, hepatic or abdominal bruits. Diffuse, nonlocalized tenderness to palpation no signs of rigidity or guarding. Liver edge, not palpable. Spleen edge, right and left kidney not palpable. Superior bladder margin non-tender. Special Testing: Negative Austin, Rovsing, McBurney, Axel, cutaneous hyperesthesia. Iliopsoas and obturator tests negative bilaterally. Negative Heel Jar test/ esa sign. No CVA tenderness. Digital rectal exam deferred. Negative joseph turners or cullens sign Musculoskeletal: Normal ROM, no tenderness. Strength 5/5. Sensation intact. Pulses equal bilaterally 2+. Neurological: A&O x 3. CN II-XII intact, There are no obvious motor or sensory deficits. Coordination appears grossly intact. Speech is normal. Skin: Skin is warm and dry and no rashes or lesions are noted. Psychiatric: Cooperative, appropriate mood & affect, normal judgment. Limitations: no limitations Course Vital Signs 06/29/18 06/29/18 06/29/18 18:10 20:32 22:32 Temperature 98.3 F 97.9 F 97.6 F Pulse Rate 80 76 76 Respiratory 18 18 18 Rate Blood Pressure 116/79 114/56 111/76 O2 Sat by Pulse 100 98 98 Oximetry Medical Decision Making - Medical Decision Making CT (-) for acute process. No findings on pelvic US. Pt refused pelvic exam. US GB (-). Mildly elevated WBC, remainder of labs unremarkable. Abdominal exam, not concerning for acute abdomen at this time. Pt given zofran and morphone for nausea and pain mgmt. At this time given chronicity of pain with no acute changes, I feel pt is stable for discharge with gastroenterology follow-up. Patient is agreeable plan, patient has full prescription for Zofran and Reglan as prescribed by primary care provider. Return parameters discussed at length the patient. Case discussed with Dr. Mendoza who agreed with imprssion and plan. Pt d/c in stable condition. Well appearing. - Lab Data Result diagrams: 06/29/18 18:30 06/29/18 18:30 Lab Results 06/29/18 06/29/18 06/29/18 Range/Units 18:30 18:30 18:30 WBC 10.9 H (3.8-10.6) k/uL RBC 4.67 (3.80-5.40) m/uL Hgb 12.6 (11.4-16.0) gm/dL Hct 38.0 (34.0-46.0) % MCV 81.2 (80.0-100.0) fL MCH 26.9 (25.0-35.0) pg MCHC 33.2 (31.0-37.0) g/dL RDW 15.3 (11.5-15.5) % Plt Count 247 (150-450) k/uL Neutrophils % 66 % Lymphocytes % 27 % Monocytes % 3 % Eosinophils % 2 % Basophils % 0 % Neutrophils # 7.2 (1.3-7.7) k/uL Lymphocytes # 2.9 (1.0-4.8) k/uL Monocytes # 0.3 (0-1.0) k/uL Eosinophils # 0.3 (0-0.7) k/uL Basophils # 0.0 (0-0.2) k/uL Sodium 140 (137-145) mmol/L Potassium 4.4 (3.5-5.1) mmol/L Chloride 108 H (98-107) mmol/L Carbon Dioxide 20 L (22-30) mmol/L Anion Gap 12 mmol/L BUN 14 (7-17) mg/dL Creatinine 0.69 (0.52-1.04) mg/dL Est GFR (CKD-EPI)AfAm >90 (>60 ml/min/1.73 sqM) Est GFR (CKD-EPI)NonAf >90 (>60 ml/min/1.73 sqM) Glucose 115 H (74-99) mg/dL Calcium 9.5 (8.4-10.2) mg/dL Total Bilirubin 0.3 (0.2-1.3) mg/dL AST 29 (14-36) U/L ALT 32 (9-52) U/L Alkaline Phosphatase 118 (38-126) U/L Total Protein 7.0 (6.3-8.2) g/dL Albumin 3.9 (3.5-5.0) g/dL Amylase 54 (30-110) U/L Lipase 73 (23-300) U/L Urine Color Urine Appearance (Clear) Urine pH (5.0-8.0) Ur Specific [place] (1.001-1.035) Urine Protein (Negative) Urine Glucose (UA) (Negative) Urine Ketones (Negative) Urine Blood (Negative) Urine Nitrite (Negative) Urine Bilirubin (Negative) Urine Urobilinogen (<2.0) mg/dL Ur Leukocyte Esterase (Negative) Urine WBC (0-5) /hpf Ur Squamous Epith Cells (0-4) /hpf Urine Bacteria (None) /hpf Urine Yeast (Budding) (None) /hpf Urine HCG, Qual Not Detected (Not Detectd) 06/29/18 Range/Units 18:30 WBC (3.8-10.6) k/uL RBC (3.80-5.40) m/uL Hgb (11.4-16.0) gm/dL Hct (34.0-46.0) % MCV (80.0-100.0) fL MCH (25.0-35.0) pg MCHC (31.0-37.0) g/dL RDW (11.5-15.5) % Plt Count (150-450) k/uL Neutrophils % % Lymphocytes % % Monocytes % % Eosinophils % % Basophils % % Neutrophils # (1.3-7.7) k/uL Lymphocytes # (1.0-4.8) k/uL Monocytes # (0-1.0) k/uL Eosinophils # (0-0.7) k/uL Basophils # (0-0.2) k/uL Sodium (137-145) mmol/L Potassium (3.5-5.1) mmol/L Chloride (98-107) mmol/L Carbon Dioxide (22-30) mmol/L Anion Gap mmol/L BUN (7-17) mg/dL Creatinine (0.52-1.04) mg/dL Est GFR (CKD-EPI)AfAm (>60 ml/min/1.73 sqM) Est GFR (CKD-EPI)NonAf (>60 ml/min/1.73 sqM) Glucose (74-99) mg/dL Calcium (8.4-10.2) mg/dL Total Bilirubin (0.2-1.3) mg/dL AST (14-36) U/L ALT (9-52) U/L Alkaline Phosphatase (38-126) U/L Total Protein (6.3-8.2) g/dL Albumin (3.5-5.0) g/dL Amylase (30-110) U/L Lipase (23-300) U/L Urine Color Light Yellow Urine Appearance Cloudy H (Clear) Urine pH 6.5 (5.0-8.0) Ur Specific [place] 1.007 (1.001-1.035) Urine Protein Negative (Negative) Urine Glucose (UA) Negative (Negative) Urine Ketones Negative (Negative) Urine Blood Negative (Negative) Urine Nitrite Negative (Negative) Urine Bilirubin Negative (Negative) Urine Urobilinogen <2.0 (<2.0) mg/dL Ur Leukocyte Esterase Negative (Negative) Urine WBC 2 (0-5) /hpf Ur Squamous Epith Cells 2 (0-4) /hpf Urine Bacteria Many H (None) /hpf Urine Yeast (Budding) Occasional H (None) /hpf Urine HCG, Qual (Not Detectd) Disposition Clinical Impression: Chronic abdominal pain, Vomiting Disposition: HOME SELF-CARE Condition: Good Instructions: Acute Nausea and Vomiting in Children (ED), Abdominal Pain (ED) Additional Instructions: Please follow-up with gastroenterology in the next week. Please return to emergency room if the symptoms increase or worsen or for any other concerns. Is patient prescribed a controlled substance at d/c from ED?: No Referrals: None,Stated [Primary Care Provider] - 1-2 days [facility] [[facility]] - 1-2 days Martha Lee MD [STAFF PHYSICIAN] - 1-2 days Time of Disposition: 22:07
[2018-06-29 19:26] LABS: Basophils % (A) 0 %; Eosinophils # (A) 0.3 k/uL (0-0.7); Eosinophils % (A) 2 %; HGB 12.6 gm/dL (11.4-16.0); Lymphocytes # (A) 2.9 k/uL (1.0-4.8); Lymphocytes % (A) 27 %; MCH 26.9 pg (25.0-35.0); MCHC 33.2 g/dL (31.0-37.0); MCV 81.2 fL (80.0-100.0); Mean Platelet Volume 8.3; Monocytes # (A) 0.3 k/uL (0-1.0); Monocytes % (A) 3 %; Neutrophils # (A) 7.2 k/uL (1.3-7.7); Neutrophils % (A) 66 %; Platelet Count 247 k/uL (150-450); RBC 4.67 m/uL (3.80-5.40); RDW 15.3 % (11.5-15.5); WBC 10.9 k/uL (3.8-10.6)
[2018-06-29 19:35] LABS: Appearance,Urine Cloudy (Clear); Bacteria,Urine Many /hpf; Bilirubin,Urine Negative (Negative); Blood,Urine Negative (Negative); Budding Yeast,Urine Occasional /hpf; Color,Urine Light Yellow; Glucose,Urine (UA) Negative (Negative); Ketones,Urine Negative (Negative); Leukocyte Esterase,Urine Negative (Negative); Nitrite,Urine Negative (Negative); PH, Urine 6.5 (5.0-8.0); Protein,Urine Negative (Negative); Specific Gravity,Urine 1.007 (1.001-1.035); Squamous Epithelial Cell,Urine 2 /hpf (0-4); Urobilinogen,Urine <2.0 mg/dL (<2.0); WBC,Urine 2 /hpf (0-5)
[2018-06-29 19:46] LABS: ALT 32 U/L (9-52); AST 29 U/L (14-36); Albumin 3.9 g/dL (3.5-5.0); Alkaline Phosphatase 118 U/L (38-126); Amylase 54 U/L (30-110); Anion Gap 12 mmol/L; Blood Urea Nitrogen 14 mg/dL (7-17); Calcium 9.5 mg/dL (8.4-10.2); Carbon Dioxide 20 mmol/L (22-30); Chloride 108 mmol/L (98-107); Glucose 115 mg/dL (74-99); Lipase 73 U/L (23-300); Potassium 4.4 mmol/L (3.5-5.1); Sodium 140 mmol/L (137-145); Total Bilirubin 0.3 mg/dL (0.2-1.3)
--- NOTE | 2018-06-29 20:12 | US ---
EXAMINATION TYPE: US TRANSVAGINAL DATE OF EXAM: 06/29/2018 COMPARISON: NONE CLINICAL HISTORY: pelvic pain, left with nausea and vomiting. TECHNIQUE: Transvaginal (TV). Date of LMP: 06/06/18 EXAM MEASUREMENTS: Uterus: 7.5 x 2.6 x 3.7 cm Endometrial Stripe: 1.1 cm Right Ovary: 3.6 x 3.1 x 2.3 cm Left Ovary: 2.8 x 2.5 x 2.9 cm Patient unable to empty her bladder, fundus of uterus partially obscured by artifact from full bladde r. 1. Uterus: Anteverted wnl 2. Endometrium: wnl 3. Right Ovary: wnl 4. Left Ovary: wnl Spectral, color and waveform doppler imaging shows good arterial and venous flow within the ovaries ; there is no evidence for ovarian torsion. 5. Bilateral Adnexa: wnl 6. Posterior cul-de-sac: wnl IMPRESSION: Negative exam. No evidence of ovarian torsion.
[2018-06-29 20:33] VITALS: PULSE 76
--- NOTE | 2018-06-29 20:35 | CT ---
EXAMINATION TYPE: CT abdomen pelvis w con DATE OF EXAM: 06/29/2018 COMPARISON: 06/09/2018 HISTORY: Left sided abdominal pain with nausea and vomiting. CT DLP: 1175.5 mGycm Automated exposure control for dose reduction was used. TECHNIQUE: Helical acquisition of images was performed from the lung bases through the pelvis. CONTRAST: Performed without Oral Contrast and with IV Contrast, patient injected with 100 mL of Isovue 300. FINDINGS: Lung bases are clear. There is no pleural effusion. Heart size is normal. Liver and spleen appear nor mal. Bile ducts are not dilated. There is no pancreatic mass. Gallbladder appears normal. Gallbladder is contracted. There is no adrenal mass. Kidneys show satisfactory contrast opacification. There is no hydronephrosis. There is no retroperitoneal adenopathy. There is no mesenteric edema or adenopathy . Bladder distends smoothly. There is no inguinal hernia. There is no free fluid in the pelvis. Uteru s is anteverted. Appendix is partly seen on the coronal images and appears normal. The lumbar spine is intact. Bony pe lvis is intact.. IMPRESSION: NEGATIVE CT SCAN OF THE ABDOMEN AND PELVIS. NO ADVERSE CHANGE COMPARED TO OLD EXAM.
[2018-06-29] MEDS ORDERED: MORPHINE SULFATE 2 MG/ML SYRINGE IVP STA (20:57)
--- NOTE | 2018-06-29 21:55 | US ---
EXAMINATION TYPE: US gallbladder DATE OF EXAM: 06/29/2018 COMPARISON: CT 2 hours prior CLINICAL HISTORY: Pain. EXAM MEASUREMENTS: Liver Length: 14.9 cm Gallbladder Wall: 0.3 cm CBD: .0.3 cm Right Kidney: 12.1 x 3.6 x 5.0 cm Pancreas: Obscured by bowel gas Liver: Increased attenuation, decreased visualization of vessels suggestive of fatty infiltrate Gallbladder: wnl, as seen, somewhat contracted Evidence for sonographic Burr's sign: no CBD: wnl Right Kidney: wnl IMPRESSION: Negative right upper quadrant sonogram. No gallstones or dilated ducts.
[2018-06-29 22:33] VITALS: BP 111/76; TEMP 97.6
== END 2018-06-29 22:33 | disposition home or self-care (01) ==
LOC: EC 17:53
DX: G89.29 Other chronic pain (principal); R10.11 Right upper quadrant pain; R10.84 Generalized abdominal pain; R11.10 Vomiting, unspecified; R19.7 Diarrhea, unspecified; Z32.02 Encounter for pregnancy test, result negative; F41.0 Panic disorder [episodic paroxysmal anxiety]; F31.9 Bipolar disorder, unspecified; F20.9 Schizophrenia, unspecified; F17.200 Nicotine dependence, unspecified, uncomplicated; Z79.899 Other long term (current) drug therapy; Z88.0 Allergy status to penicillin; Z88.2 Allergy status to sulfonamides; Z88.8 Allergy status to other drugs, medicaments and biological substances
CPT/HCPCS: 99284 ×2; 96374 ×2; 96375 ×2; 96376 ×2; 96361 ×4; 36415; 80053; 82150; 83690; 85025; 81001; 81025; 93975; 76830; 76705; 74177; J2405; J2270; Q9967

== ENCOUNTER 2018-06-30 19:45 | Emergency (ER) | payer OTHER ==
[2018-06-30 19:52] VITALS: RESP 18; TEMP 98.5
[2018-06-30] MEDS ORDERED: cefTRIAXone 250 MG VIAL IM STA (20:22)
[2018-06-30] MEDS ORDERED: DOXYCYCLINE 100 MG CAP PO STA (20:23)
[2018-06-30] MEDS ORDERED: FLUCONAZOLE 150 MG TAB PO STA (20:24)
--- NOTE | 2018-06-30 21:03 | ED ---
Female Urogenital HPI - General Chief complaint: Urogenital Stated complaint: Abd Pain Source: patient Mode of arrival: ambulatory Limitations: no limitations - History of Present Illness Initial comments: 23yo female presenting today for cc of treatment and evaluation for STD. I had seen patient the night prior in the emergency room for diffuse abdominal pain- CT (-), US pelvis (-). Pt refused pelvic exam at that time and treatment for STD. I called public guardian earlier this morning who states that pt is often running off and has sex for money in the past. I expressed my concerned for STD and importance that patient be treated and evaluated by OBGYN. Guardian states she will speak with patient. Pt presents to the ER for treatment of STD/ evaluation. Pt admits to lower pelvic cramping, vaginal discharge/irritation. She denies these complaints the day prior. Upon arrival pt BP elevated. Pt afebrile, well appearing nontoxic. Pt did not take 2g azithro as escribed earlier this morning-order cancelled. Last Menstrual Period: 06/20/18 - Related Data Home Medications Medication Instructions Recorded Confirmed Ergocalciferol (Vitamin D2) 50,000 unit PO Q14D 06/20/18 06/30/18 [Vitamin D2] Paliperidone IM [Invega Sustenna] 234 mg IM Q28D 06/20/18 06/30/18 hydrOXYzine PAMOATE [Vistaril] 100 mg PO HS 06/20/18 06/30/18 lamoTRIgine [LaMICtal] 100 mg PO HS 06/20/18 06/30/18 Previous Rx's Medication Instructions Recorded Albuterol Inhaler [Ventolin Hfa 2 puff INHALATION RT-QID PRN 30 06/06/18 Inhaler] Days #1 puff Budesonide-Formot 160-4.5 Mcg 2 puff INHALATION RT-BID 30 Days 06/06/18 [Symbicort 160-4.5 Mcg Inhaler] #1 puff Naproxen 500 mg PO AC-BID PRN #30 tablet 06/06/18 Pramipexole [Mirapex] 0.5 mg PO HS 30 Days #30 tab 06/06/18 Nystatin 100,000 Unit/gm Oint 1 applic TOPICAL BID #15 gm 06/07/18 [Mycostatin Oint] Dicyclomine [Bentyl] 20 mg PO QID #60 tablet 06/21/18 Famotidine [Pepcid] 20 mg PO BID #60 tablet 06/21/18 Ondansetron Odt [Zofran ODT] 4 mg PO Q8HR PRN #30 tab 06/21/18 Doxycycline [Vibramycin] 100 mg PO BID 14 Days #28 cap 06/30/18 Allergies Allergy/AdvReac Type Severity Reaction Status Date / Time Penicillins Allergy Severe Anaphylaxis Verified 06/30/18 20:11 Sulfa (Sulfonamide Allergy Severe Anaphylaxis Verified 06/30/18 20:11 Antibiotics) diphenhydramine HCl Allergy Rash/Hives Verified 06/30/18 20:11 [From Benadryl] Review of Systems ROS Statement: Those systems with pertinent positive or pertinent negative responses have been documented in the HPI. ROS Other: All systems not noted in ROS Statement are negative. Constitutional: Denies: fever, chills ENT: Denies: ear pain, throat pain Respiratory: Denies: cough, dyspnea Cardiovascular: Denies: palpitations Gastrointestinal: Reports: abdominal pain, nausea, vomiting. Denies: diarrhea, constipation, hematemesis, melena Genitourinary: Reports: urgency, dysuria, discharge, dyspareunia. 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 Past Anesthesia/Blood Transfusion Reactions: No Reported Reaction Additional Past Anesthesia/Blood Transfusion Reaction / Comment(s): Patient does not believe she has had a reaction to anesthesia. Past Psychological History: Anxiety, Depression, Panic Disorder, PTSD, Schizoaffective Disorder, Schizophrenia Smoking Status: Current every day smoker Past Alcohol Use History: None Reported Past Drug Use History: None Reported - Past Family History Mother Family Medical History: No Reported History Father Family Medical History: No Reported History Additional Family Medical History / Comment(s): bipolar, sever seasonal allergies Brother(s) Family Medical History: No Reported History Sister(s) Family Medical History: No Reported History General Exam - General Exam Comments Initial Comments: General: The patient is awake and alert, in no distress, and does not appear acutely ill. Eye: Pupils are equal, round and reactive to light, extra-ocular movements are intact. No nystagmus. There is normal conjunctiva bilaterally. No signs of icterus. Ears, nose, mouth and throat: There are moist mucous membranes and no oral lesions. Neck: The neck is supple, there is no tenderness or JVD. Cardiovascular: There is a regular rate and rhythm. No murmur, rub or gallop is appreciated. Respiratory: Lungs are clear to auscultation, respirations are non-labored, breath sounds are equal. No wheezes, stridor, rales, or rhonchi. Gastrointestinal: Soft, non-distended, abdomen without masses or organomegaly noted. Pt complains of pain to palpation of deep palpation of pelvic region. There is no rebound or guarding present. No CVA tenderness. Bowel sounds are unremarkable. Musculoskeletal: Normal ROM, no tenderness. Strength 5/5. Sensation intact. Pulses equal bilaterally 2+. Neurological: A&O x 3. CN II-XII intact, There are no obvious motor or sensory deficits. Coordination appears grossly intact. Speech is normal. Skin: Skin is warm and dry and no rashes or lesions are noted. Psychiatric: Cooperative, appropriate mood & affect, normal judgment. : external vagina: pink, no lesions, female hair pattern internal: moist, pink, well rugated. edematous, discharge in vault, os closed. no discharge from os. (+) cervical motion tenderness. (+) adnexal tenderness. Limitations: no limitations Course Vital Signs 06/30/18 06/30/18 19:49 22:17 Temperature 98.5 F 98.5 F Pulse Rate 105 H 74 Respiratory 18 18 Rate Blood Pressure 144/100 104/79 O2 Sat by Pulse 98 99 Oximetry - Reevaluation(s) Reevaluation #1: Spoke with Dr. Kuester OBGYN about pt case, he recommended treatment for PID and outpatient f/u in 1 week. He recommends holding flagyll unless trichomonas rapid Ag (+). 06/30/18 21:06 Medical Decision Making - Medical Decision Making PE concerning for STD and PID. OBGYN consulted, I spoke with Dr. Davis who recommended treatment with ceftriaxone and doxy x 14 days, trichomona pending he states hold flagyll if trichamonas testing (-) and he will f/u with patient in next week. Pt treated stating that she previously tolerated Despite Penicillin ALLERGY. Ultrasound obtained yesterday revealed no evidence of tubo- ovarian abscess. CT negative. Noted yeast in urine analysis, patient given Diflucan 150 mg once. I discussed Locations of pelvic inflammatory disease importance of refraining from sex until partner treated and completion of 14 day course of antibiotics. Patient verbalized understanding. I also expressed importance of close follow-up with CLINICAL DOCUMENTATION SPEC. At this time I feel pt is stable for discharge. Case discussed with Dr. Mendoza who agreed with impression and plan. Pt appears well, agreeable with discharge repeat BP within normal limits. Pt discharged in stable condition. - Lab Data Lab Results 06/30/18 Range/Units 20:50 Trichomonas Ag (Rapid) Negative (Negative) Disposition Clinical Impression: Cervicitis, Yeast vaginitis, Pelvic inflammatory disease (PID) Disposition: HOME SELF-CARE Condition: Good Instructions: Pelvic Inflammatory Disease (ED) Additional Instructions: Please use medication as discussed. Please follow-up with OBGN within the next week. Please have all partners treated for sexually transmitted disease including gonorrhea and chlamydia, no sexual intercourse for next 2 weeks, and until partners treated. Please return to emergency room if the symptoms increase or worsen or for any other concerns, as discussed. Prescriptions: Doxycycline [Vibramycin] 100 mg PO BID 14 Days #28 cap Is patient prescribed a controlled substance at d/c from ED?: No Referrals: [facility] [Primary Care Provider] - 1-2 days Roberto Davis DO [Doctor of Osteopathic Medicine] - 1-2 days Time of Disposition: 21:03
[2018-06-30 22:18] VITALS: BP 104/79; PULSE 74
[2018-07-02 13:22] LABS: C. trachomatis,PCR Negative (Neg,Equiv); Chlamydia trachomatis Source Vagina; N. gonorrhoeae,PCR Negative (Neg,Equiv); Neisseria Source Vagina
== END 2018-06-30 22:18 | disposition home or self-care (01) ==
LOC: EC 19:45
DX: N72 Inflammatory disease of cervix uteri (principal); B37.3 Candidiasis of vulva and vagina; N73.9 Female pelvic inflammatory disease, unspecified; E66.9 Obesity, unspecified; Z68.41 Body mass index [BMI] 40.0-44.9, adult; F41.0 Panic disorder [episodic paroxysmal anxiety]; F32.9 Major depressive disorder, single episode, unspecified; F25.9 Schizoaffective disorder, unspecified; F43.10 Post-traumatic stress disorder, unspecified; F17.200 Nicotine dependence, unspecified, uncomplicated; F39 Unspecified mood [affective] disorder; Z79.899 Other long term (current) drug therapy; Z88.0 Allergy status to penicillin; Z88.2 Allergy status to sulfonamides; Z88.8 Allergy status to other drugs, medicaments and biological substances
CPT/HCPCS: 87808; 87491; 87591; 99284; 96372; J0696

== ENCOUNTER 2018-07-05 17:19 | Emergency (ER) | payer OTHER ==
[2018-07-05 18:06] VITALS: BP 105/72; PULSE 85; RESP 18
[2018-07-05] MEDS ORDERED: ORPHENADRINE 30 MG/ML 2 ML VIAL IM STA (18:34)
[2018-07-05] MEDS ORDERED: KETOROLAC 60 MG/2 ML VIAL IM STA (18:34)
--- NOTE | 2018-07-05 18:43 | ED ---
Back Pain HPI - General Chief Complaint: Back Pain/Injury Stated Complaint: back pain Time Seen by Provider: 07/05/18 18:15 Source: patient, RN notes reviewed, old records reviewed Limitations: no limitations - History of Present Illness Initial Comments: Patient is a 23-year-old female who presents emergency room today with 2. chronic back pain. Patient reports she has history of scoliosis. 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 She's been on her feet for the past few days. Patient states that she has had no saddle anesthesias. She denies any fall or trauma. Patient states that she has no chance of . She denies any change in urination or bowel habits. Patient states the pain is worse with movement. She reports she did have recent x-rays at her chiropractor. Per legal guardian Patient should not receive narcotics. - Related Data Home Medications Medication Instructions Recorded Confirmed Ergocalciferol (Vitamin D2) 50,000 unit PO Q14D 06/20/18 06/30/18 [Vitamin D2] Paliperidone IM [Invega Sustenna] 234 mg IM Q28D 06/20/18 06/30/18 hydrOXYzine PAMOATE [Vistaril] 100 mg PO HS 06/20/18 06/30/18 lamoTRIgine [LaMICtal] 100 mg PO HS 06/20/18 06/30/18 Previous Rx's Medication Instructions Recorded Albuterol Inhaler [Ventolin Hfa 2 puff INHALATION RT-QID PRN 30 06/06/18 Inhaler] Days #1 puff Budesonide-Formot 160-4.5 Mcg 2 puff INHALATION RT-BID 30 Days 06/06/18 [Symbicort 160-4.5 Mcg Inhaler] #1 puff Naproxen 500 mg PO AC-BID PRN #30 tablet 06/06/18 Pramipexole [Mirapex] 0.5 mg PO HS 30 Days #30 tab 06/06/18 Nystatin 100,000 Unit/gm Oint 1 applic TOPICAL BID #15 gm 06/07/18 [Mycostatin Oint] Dicyclomine [Bentyl] 20 mg PO QID #60 tablet 06/21/18 Famotidine [Pepcid] 20 mg PO BID #60 tablet 06/21/18 Ondansetron Odt [Zofran ODT] 4 mg PO Q8HR PRN #30 tab 06/21/18 Doxycycline [Vibramycin] 100 mg PO BID 14 Days #28 cap 06/30/18 Cyclobenzaprine [Flexeril] 10 mg PO TID #10 tab 07/05/18 Ibuprofen 600 mg PO TID #20 07/05/18 Allergies Allergy/AdvReac Type Severity Reaction Status Date / Time Penicillins Allergy Severe Anaphylaxis Verified 07/05/18 18:06 Sulfa (Sulfonamide Allergy Severe Anaphylaxis Verified 07/05/18 18:06 Antibiotics) diphenhydramine HCl Allergy Rash/Hives Verified 07/05/18 18:06 [From Benadryl] Review of Systems ROS Statement: Those systems with pertinent positive or pertinent negative responses have been documented in the HPI. ROS Other: All systems not noted in ROS Statement are negative. 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 Past Anesthesia/Blood Transfusion Reactions: No Reported Reaction Additional Past Anesthesia/Blood Transfusion Reaction / Comment(s): Patient does not believe she has had a reaction to anesthesia. Past Psychological History: Anxiety, Depression, Panic Disorder, PTSD, Schizoaffective Disorder, Schizophrenia Smoking Status: Current every day smoker Past Alcohol Use History: None Reported Past Drug Use History: None Reported - Past Family History Mother Family Medical History: No Reported History Father Family Medical History: No Reported History Additional Family Medical History / Comment(s): bipolar, sever seasonal allergies Brother(s) Family Medical History: No Reported History Sister(s) Family Medical History: No Reported History General Exam - General Exam Comments Initial Comments: Patient is a 23-year-old female. Alert and oriented. Patient appears in no acute distress. Limitations: no limitations General appearance: alert, in no apparent distress Head exam: Present: atraumatic, normocephalic, normal inspection Eye exam: Present: normal appearance, PERRL, EOMI. Absent: scleral icterus, conjunctival injection, periorbital swelling ENT exam: Present: normal exam, mucous membranes moist Neck exam: Present: normal inspection. Absent: tenderness, meningismus, lymphadenopathy Respiratory exam: Present: normal lung sounds bilaterally. Absent: respiratory distress, wheezes, rales, rhonchi, stridor Cardiovascular Exam: Present: regular rate, normal rhythm, normal heart sounds. Absent: systolic murmur, diastolic murmur, rubs, gallop, clicks GI/Abdominal exam: Present: soft, normal bowel sounds. Absent: distended, tenderness, guarding, rebound, rigid Extremities exam: Present: normal inspection, full ROM, normal capillary refill. Absent: tenderness, pedal edema, joint swelling, calf tenderness Back exam: Present: normal inspection, full ROM, other (Diffuse spinal tenderness.) Neurological exam: Present: alert, oriented X3, CN II-XII intact Psychiatric exam: Present: normal affect, normal mood Skin exam: Present: warm, dry, intact, normal color. Absent: rash Course Vital Signs 07/05/18 18:04 Temperature 98 F Pulse Rate 85 Respiratory 18 Rate Blood Pressure 105/72 O2 Sat by Pulse 98 Oximetry Medical Decision Making - Medical Decision Making 23-year-old female presents today with chronic back pain. She has history of scoliosis. No falls or trauma. Worse over the past 2 days after prolonged working. 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 She denies saddle anesthesias. She has no specific spine tenderness. Patient is here frequently for chronic back pain. Discussed that she does not need further x-rays with recent imaging studies completed a chiropractor as well as her student records specialist. Patient' s legal guardian saline her to have narcotics. Patient was given IM Toradol and Norflex. Discussed that she can be discharged with anti-inflammatories and a starter pack for Flexeril. QUESTIONS answered return parameters were discussed. Disposition Clinical Impression: Back pain, History of scoliosis Disposition: HOME SELF-CARE Condition: Good Instructions: Acute Low Back Pain (ED) Additional Instructions: Patient advised to follow-up with primary care physician. Return to emergency department if any alarming signs or symptoms occur. Prescriptions: Cyclobenzaprine [Flexeril] 10 mg PO TID #10 tab Ibuprofen 600 mg PO TID #20 Is patient prescribed a controlled substance at d/c from ED?: No Referrals: [facility] [Primary Care Provider] - 1-2 days Nohemi Betancourt DO [Doctor of Osteopathic Medicine] - 1-2 days Time of Disposition: 18:41
[2018-07-05 19:06] VITALS: TEMP 97.6
== END 2018-07-05 19:00 | disposition home or self-care (01) ==
LOC: EC 17:19
DX: M54.9 Dorsalgia, unspecified (principal); G89.29 Other chronic pain; Z87.39 Personal history of other diseases of the musculoskeletal system and connective tissue; F25.9 Schizoaffective disorder, unspecified; F41.0 Panic disorder [episodic paroxysmal anxiety]; F32.9 Major depressive disorder, single episode, unspecified; F17.200 Nicotine dependence, unspecified, uncomplicated; Z79.899 Other long term (current) drug therapy; Z88.0 Allergy status to penicillin; Z88.2 Allergy status to sulfonamides; Z88.8 Allergy status to other drugs, medicaments and biological substances
CPT/HCPCS: 99283; 96372 ×2; J2360; J1885

== ENCOUNTER 2018-07-30 11:29 | Emergency (ER) | payer OTHER ==
[2018-07-30 11:34] VITALS: RESP 18
[2018-07-30] MEDS ORDERED: metroNIDAZOLE 500 MG TAB PO STA (12:36)
[2018-07-30] MEDS ORDERED: cefTRIAXone 250 MG VIAL IM STA ×2 (12:36→12:40)
[2018-07-30] MEDS ORDERED: AZITHROMYCIN 500 MG TAB PO STA (12:36)
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
[2018-07-30 13:24] LABS: Appearance,Urine Clear (Clear); Bilirubin,Urine Negative (Negative); Blood,Urine Negative (Negative); Color,Urine Yellow; Glucose,Urine (UA) Negative (Negative); Ketones,Urine Negative (Negative); Leukocyte Esterase,Urine Negative (Negative); Nitrite,Urine Negative (Negative); Protein,Urine Negative (Negative); Specific Gravity,Urine 1.021 (1.001-1.035); Urobilinogen,Urine <2.0 mg/dL (<2.0)
[2018-07-30] MEDS ORDERED: ONDANSETRON ODT 4 MG TAB PO STA (13:47)
[2018-07-30 13:56] VITALS: BP 125/73; PULSE 80; TEMP 98.2
== END 2018-07-30 13:50 | disposition home or self-care (01) ==
LOC: EC 11:29
DX: T74.21XA Adult sexual abuse, confirmed, initial encounter (principal); E66.9 Obesity, unspecified; Z68.41 Body mass index [BMI] 40.0-44.9, adult; F32.9 Major depressive disorder, single episode, unspecified; F41.0 Panic disorder [episodic paroxysmal anxiety]; F43.10 Post-traumatic stress disorder, unspecified; F20.9 Schizophrenia, unspecified; F17.200 Nicotine dependence, unspecified, uncomplicated; Z79.899 Other long term (current) drug therapy; Z79.1 Long term (current) use of non-steroidal anti-inflammatories (NSAID); Z88.0 Allergy status to penicillin; Z88.2 Allergy status to sulfonamides; Z88.8 Allergy status to other drugs, medicaments and biological substances
CPT/HCPCS: 96372 ×2; 99285 ×2; 96374; 96375; 99284; 81003; 81025; J2930; J0696

== ENCOUNTER 2018-07-30 20:11 | Emergency (ER) | payer OTHER ==
[2018-07-30 20:32] VITALS: RESP 18
[2018-07-30] MEDS ORDERED: FAMOTIDINE 20 MG/2 ML VIAL IV STA (21:40)
[2018-07-30] MEDS ORDERED: methylPREDNISolone SOD SUCCI 125 MG/2 ML VIAL IV STA (21:40)
[2018-07-30] MEDS ORDERED: hydrOXYzine PAMOATE 25 MG CAP PO STA (22:07)
--- NOTE | 2018-07-30 22:52 | ED ---
Allergic Reaction HPI - General Chief complaint: Allergic Reaction Stated complaint: allergic reaction Time Seen by Provider: 07/30/18 20:47 Source: patient, EMS Mode of arrival: EMS Limitations: no limitations - History of Present Illness Initial Comments: 23yo with PCN and sulf allergies, as well as multiple food and environmental allergies presenting for evaluation of possible allergic reaction. Pt state ari was given medications earlier today for STD treatment and thinks she may be having allergic reaction. She states she is on vestril daily because she often gets rash or hives out of no where from allergic reactions to various "things". She states at times with these reactions she has dizziness. Pt states that today about 3 hours ago she began itching and noticed hives on her wrists and chest. She also noted mild dizziness at that time that has since subsided. Pt denied shortness of breath, throat swelling sensation, tongue or lip swelling , nausea, vomiting, diarrhea, fever. Pt denies any blistering. Pt was worried about the dizziness with the hives and presented via EMS. Pt given bolus of fluids prior to arrival. Pt VS WNL, no evidence of hypotension. Pt appears well. Remainder of ROS (-), pt denies chest pain, MARTINEZ, abdominal pain, visual changes, headache, back pain, numbness,tingling, muscle weakness. - Related Data Home Medications Medication Instructions Recorded Confirmed Ergocalciferol (Vitamin D2) 50,000 unit PO Q14D 06/20/18 07/30/18 [Vitamin D2] Paliperidone IM [Invega Sustenna] 234 mg IM Q28D 06/20/18 07/30/18 hydrOXYzine PAMOATE [Vistaril] 100 mg PO HS 06/20/18 07/30/18 lamoTRIgine [LaMICtal] 100 mg PO QAM 06/20/18 07/30/18 Albuterol Inhaler [Ventolin Hfa 1 - 2 puff INHALATION RT-Q6H PRN 07/30/18 Inhaler] Budesonide/Formoterol Fumarate 2 puff INHALATION RT-BID 07/30/18 07/30/18 [Symbicort 160-4.5 Mcg Inhaler] Cetirizine HCl [Zyrtec] 10 mg PO DAILY 07/30/18 07/30/18 Ibuprofen [Motrin] 400 mg PO Q8HR 07/30/18 07/30/18 Metoclopramide HCl [Reglan] 5 mg PO TID 07/30/18 07/30/18 Multivitamins, Thera [Multivitamin 1 tab PO DAILY 07/30/18 07/30/18 (formulary)] Previous Rx's Medication Instructions Recorded Cyclobenzaprine [Flexeril] 10 mg PO TID #10 tab 07/05/18 Allergies Allergy/AdvReac Type Severity Reaction Status Date / Time Penicillins Allergy Severe Anaphylaxis Verified 07/30/18 21:05 Sulfa (Sulfonamide Allergy Severe Anaphylaxis Verified 07/30/18 21:05 Antibiotics) diphenhydramine HCl Allergy Rash/Hives Verified 07/30/18 21:05 [From Benadryl] Review of Systems ROS Statement: Those systems with pertinent positive or pertinent negative responses have been documented in the HPI. ROS Other: All systems not noted in ROS Statement are negative. 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 Past Anesthesia/Blood Transfusion Reactions: No Reported Reaction Additional Past Anesthesia/Blood Transfusion Reaction / Comment(s): Patient does not believe she has had a reaction to anesthesia. Past Psychological History: Anxiety, Depression, Panic Disorder, PTSD, Schizoaffective Disorder, Schizophrenia Smoking Status: Current every day smoker Past Alcohol Use History: None Reported Past Drug Use History: Marijuana - Past Family History Mother Family Medical History: No Reported History Father Family Medical History: No Reported History Additional Family Medical History / Comment(s): bipolar, sever seasonal allergies Brother(s) Family Medical History: No Reported History Sister(s) Family Medical History: No Reported History General Exam - General Exam Comments Initial Comments: General: The patient is awake and alert, in no distress, and does not appear acutely ill. Eye: +3 mm pupils are equal, round and reactive to light, extra-ocular movements are intact. No nystagmus. There is normal conjunctiva bilaterally. No signs of icterus. Ears, nose, mouth and throat: There are moist mucous membranes and no oral lesions. No tongue swelling. No difficulty with swallowing. Neck: The neck is supple, there is no tenderness or JVD. Cardiovascular: There is a regular rate and rhythm. No murmur, rub or gallop is appreciated. Respiratory: Lungs are clear to auscultation, respirations are non-labored, breath sounds are equal. No wheezes, stridor, rales, or rhonchi. No signs of respiratory distress. Gastrointestinal: Soft, non-distended, non-tender abdomen without masses or organomegaly noted. There is no rebound or guarding present. No CVA tenderness. Bowel sounds are unremarkable. Musculoskeletal: Normal ROM, no tenderness. Strength 5/5. Sensation intact. Radial pulses equal bilaterally 2+. Neurological: A&O x 3. CN II-XII intact, There are no obvious motor or sensory deficits. Coordination appears grossly intact. Speech is normal. Skin: Skin is warm and dry. Uterus. Noted over right side of the anterior chest and breast. There is a small area. Area present on the right wrist. This is blanchable. No bulla or vesicles Psychiatric: Cooperative, appropriate mood & affect, normal judgment. Limitations: no limitations Course Vital Signs 07/30/18 07/30/18 20:28 22:54 Temperature 98.9 F 98.2 F Pulse Rate 79 73 Respiratory 18 18 Rate Blood Pressure 146/72 120/78 O2 Sat by Pulse 98 96 Oximetry Medical Decision Making - Medical Decision Making No signs concerning for anaphylaxis on PE. Skin exam revealed small area of uticaria on right wrist and along right chest wall/breast. No tongue swelling, no oral involvement. No wheeze, lungs clear. Pt given pepcid, solumedrol and vestril. Improved rash, pt requesting discharge. Pt has RX for vestril and pepcid outpatient. instructed to continue these medications. Case discussed with Dr. Bella who agreed with impression and plan. Pt is to f/u with PCP in next 1-2 days and return for any worsening symptoms. Pt BP WNL upon discharge, appearing well. Improvement of uticaria. Case discussed with Dr. Bella who agreed to impression plan. Patient was discharged in stable condition appearing well. Disposition Clinical Impression: Medication reaction, Acute urticaria Disposition: HOME SELF-CARE Condition: Good Instructions: Urticaria (ED) Additional Instructions: Please use medication as discussed, including home medications of Vistaril and pepcid. Please follow-up with family doctor in the next 2 days. Please return to emergency room if the symptoms increase or worsen or for any other concerns. Is patient prescribed a controlled substance at d/c from ED?: No Referrals: [facility] [Primary Care Provider] - 1-2 days Time of Disposition: 22:52
[2018-07-30 22:54] VITALS: BP 120/78; PULSE 73; TEMP 98.2
== END 2018-07-30 23:00 | disposition home or self-care (01) ==
LOC: EC 20:11
DX: L50.0 Allergic urticaria (principal); T50.905A Adverse effect of unspecified drugs, medicaments and biological substances, initial encounter; R42 Dizziness and giddiness; J45.909 Unspecified asthma, uncomplicated; F25.1 Schizoaffective disorder, depressive type; F25.0 Schizoaffective disorder, bipolar type; F43.10 Post-traumatic stress disorder, unspecified; F17.200 Nicotine dependence, unspecified, uncomplicated; E66.9 Obesity, unspecified; Z68.41 Body mass index [BMI] 40.0-44.9, adult; Z79.51 Long term (current) use of inhaled steroids; Z79.1 Long term (current) use of non-steroidal anti-inflammatories (NSAID); Z79.899 Other long term (current) drug therapy; Z88.0 Allergy status to penicillin; Z88.2 Allergy status to sulfonamides; Z88.8 Allergy status to other drugs, medicaments and biological substances
CPT/HCPCS: 99284; 96374; 96375; J2930

== ENCOUNTER 2018-08-03 14:39 | Emergency (ER) | payer OTHER ==
[2018-08-03 15:07] VITALS: BP 133/79; PULSE 89; RESP 18; TEMP 98
[2018-08-03] MEDS ORDERED: cefTRIAXone 250 MG VIAL IM STA (16:16)
[2018-08-03] MEDS ORDERED: AZITHROMYCIN 500 MG TAB PO STA (16:17)
[2018-08-03] MEDS ORDERED: metroNIDAZOLE 500 MG TAB PO STA (16:17)
[2018-08-03 16:36] LABS: Appearance,Urine Turbid (Clear); Bilirubin,Urine Negative (Negative); Blood,Urine Negative (Negative); Color,Urine Yellow; Glucose,Urine (UA) Negative (Negative); Ketones,Urine Negative (Negative); Leukocyte Esterase,Urine Large (Negative); Mucus,Urine Few /hpf; Nitrite,Urine Negative (Negative); Protein,Urine Trace (Negative); RBC,Urine 2 /hpf (0-5); Specific Gravity,Urine 1.017 (1.001-1.035); Squamous Epithelial Cell,Urine 42 /hpf (0-4); Urobilinogen,Urine <2.0 mg/dL (<2.0); WBC,Urine 2 /hpf (0-5)
[2018-08-03] MEDS ORDERED: diphenhydrAMINE 25 MG CAP PO STA (17:21)
--- NOTE | 2018-08-03 17:25 | ED ---
General Adult HPI - General Chief complaint: Abdominal Pain Stated complaint: Abd pain Time Seen by Provider: 08/03/18 15:56 Source: patient, RN notes reviewed Mode of arrival: ambulatory Limitations: no limitations - History of Present Illness Initial comments: Patient 23-year-old female presenting to the emergency room today with chief complaint worried about possible STD. She does admit that she was treated recently for Chlamydia. She states that she feels she still has this. She does admit that she had recent unprotected sex after the treatment. Patient admits that her boyfriend is here to be treated as well. Patient does admit that she's had some white discharge. Does admit some lower abdominal cramping. Patient denies any other complaints or symptoms. Patient denies any recent fever, chills, shortness of breath, chest pain, back pain, nausea or vomiting, numbness or tingling, headaches or visual changes, or any other complaints. - Related Data Home Medications Medication Instructions Recorded Confirmed Paliperidone IM [Invega Sustenna] 234 mg IM Q28D 06/20/18 08/03/18 hydrOXYzine PAMOATE [Vistaril] 100 mg PO HS 06/20/18 08/03/18 lamoTRIgine [LaMICtal] 100 mg PO DAILY 06/20/18 08/03/18 Albuterol Inhaler [Ventolin Hfa 1 - 2 puff INHALATION RT-Q6H PRN 07/30/18 Inhaler] Budesonide/Formoterol Fumarate 2 puff INHALATION RT-BID 07/30/18 08/03/18 [Symbicort 160-4.5 Mcg Inhaler] Cetirizine HCl [Zyrtec] 10 mg PO DAILY 07/30/18 08/03/18 Ibuprofen [Motrin] 400 mg PO Q8HR PRN 07/30/18 08/03/18 Metoclopramide HCl [Reglan] 5 mg PO TID 07/30/18 08/03/18 Multivitamins, Thera [Multivitamin 1 tab PO DAILY 07/30/18 08/03/18 (formulary)] Previous Rx's Medication Instructions Recorded Cyclobenzaprine [Flexeril] 10 mg PO TID #10 tab 07/05/18 Allergies Allergy/AdvReac Type Severity Reaction Status Date / Time Penicillins Allergy Severe Anaphylaxis Verified 08/03/18 15:14 Sulfa (Sulfonamide Allergy Severe Anaphylaxis Verified 08/03/18 15:14 Antibiotics) diphenhydramine HCl Allergy Rash/Hives Verified 08/03/18 15:14 [From Benadryl] Review of Systems ROS Statement: Those systems with pertinent positive or pertinent negative responses have been documented in the HPI. ROS Other: All systems not noted in ROS Statement are negative. 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 Past Anesthesia/Blood Transfusion Reactions: No Reported Reaction Additional Past Anesthesia/Blood Transfusion Reaction / Comment(s): Patient does not believe she has had a reaction to anesthesia. Past Psychological History: Anxiety, Depression, Panic Disorder, PTSD, Schizoaffective Disorder, Schizophrenia Smoking Status: Current every day smoker Past Alcohol Use History: None Reported Past Drug Use History: Marijuana - Past Family History Mother Family Medical History: No Reported History Father Family Medical History: No Reported History Additional Family Medical History / Comment(s): bipolar, sever seasonal allergies Brother(s) Family Medical History: No Reported History Sister(s) Family Medical History: No Reported History General Exam - General Exam Comments Initial Comments: General: The patient is awake and alert, in no distress, and does not appear acutely ill. Eye: There is normal conjunctiva bilaterally. No signs of icterus. Ears, nose, mouth and throat: There are moist mucous membranes and no oral lesions. Neck: The neck is supple, there is no tenderness or JVD. Cardiovascular: There is a regular rate and rhythm. No murmur, rub or gallop is appreciated. Respiratory: Lungs are clear to auscultation, respirations are non-labored, breath sounds are equal. No wheezes, stridor, rales, or rhonchi. Gastrointestinal: Abdomen soft on palpation. Musculoskeletal: Normal ROM, no tenderness. Neurological: A&O x 3. CN II-XII intact, There are no obvious motor or sensory deficits. Coordination appears grossly intact. Speech is normal. Skin: Skin is warm and dry and no rashes or lesions are noted. Psychiatric: Cooperative, appropriate mood & affect, normal judgment. Limitations: no limitations Course Vital Signs 08/03/18 15:06 Temperature 98 F Pulse Rate 89 Respiratory 18 Rate Blood Pressure 133/79 O2 Sat by Pulse 100 Oximetry Medical Decision Making - Medical Decision Making Patient was seen here recently and treated for STDs. She does admit that she had unprotected sex after she left. Her boyfriend is here to be treated as well. Cultures obtained and are pending. Patient given doses of Rocephin, Flagyl, azithromycin here in emergency room. She does admit that the Rocephin makes her itchy and requesting Benadryl which she states Benadryl just makes her mood he has it is listed as an ALLERGY. She states that the Benadryl. Patient will be discharged home. She is advised no sexual contact all symptoms have completely resolved. - Lab Data Lab Results 08/03/18 08/03/18 Range/Units 15:12 16:17 Urine Color Yellow Urine Appearance Turbid H (Clear) Urine pH 6.0 (5.0-8.0) Ur Specific [place] 1.017 (1.001-1.035) Urine Protein Trace H (Negative) Urine Glucose (UA) Negative (Negative) Urine Ketones Negative (Negative) Urine Blood Negative (Negative) Urine Nitrite Negative (Negative) Urine Bilirubin Negative (Negative) Urine Urobilinogen <2.0 (<2.0) mg/dL Ur Leukocyte Esterase Large H (Negative) Urine RBC 2 (0-5) /hpf Urine WBC 2 (0-5) /hpf Ur Squamous Epith Cells 42 H (0-4) /hpf Urine Mucus Few H (None) /hpf Urine HCG, Qual Not Detected (Not Detectd) Disposition Clinical Impression: Concern about STD in female without diagnosis Disposition: HOME SELF-CARE Condition: Good Instructions: Sexually Transmitted Diseases (ED) Additional Instructions: Please no sexual contact all symptoms are completely resolved. Please follow- up the family doctor symptoms are not improved over the next 2-5 days. Please return to emergency room if the symptoms increase or worsen or for any other concerns Is patient prescribed a controlled substance at d/c from ED?: No Referrals: [facility] [Primary Care Provider] - 1-2 days Time of Disposition: 17:25
[2018-08-04 14:13] LABS: C. trachomatis,PCR Negative (Neg,Equiv); Chlamydia trachomatis Source Urine
[2018-08-04 14:20] LABS: N. gonorrhoeae,PCR Negative (Neg,Equiv); Neisseria Source Urine
== END 2018-08-03 18:09 | disposition home or self-care (01) ==
LOC: EC 14:39
DX: Z20.2 Contact with and (suspected) exposure to infections with a predominantly sexual mode of transmission (principal); N89.8 Other specified noninflammatory disorders of vagina; R10.30 Lower abdominal pain, unspecified; J45.909 Unspecified asthma, uncomplicated; K21.9 Gastro-esophageal reflux disease without esophagitis; F20.9 Schizophrenia, unspecified; F41.9 Anxiety disorder, unspecified; F32.9 Major depressive disorder, single episode, unspecified; F17.200 Nicotine dependence, unspecified, uncomplicated; Z88.0 Allergy status to penicillin; Z88.2 Allergy status to sulfonamides; Z88.8 Allergy status to other drugs, medicaments and biological substances; Z79.51 Long term (current) use of inhaled steroids; Z79.899 Other long term (current) drug therapy
CPT/HCPCS: 81001; 81025; 87491; 87591; 87086; 99284; 96372; J0696

== ENCOUNTER 2018-08-13 14:00 | Emergency (ER) | payer OTHER ==
[2018-08-13 14:17] VITALS: RESP 18
[2018-08-13] MEDS ORDERED: SODIUM CHLORIDE 0.9% 1,000 ML IV STA (15:41)
[2018-08-13] MEDS ORDERED: ONDANSETRON 4 MG/2 ML VIAL IVP STA ×2 (15:41→16:59)
[2018-08-13] MEDS ORDERED: METOCLOPRAMIDE 5 MG/ML 2 ML VIAL IVP STA (16:29)
[2018-08-13 16:36] LABS: Basophils % (A) 0 %; Eosinophils # (A) 0.2 k/uL (0-0.7); Eosinophils % (A) 2 %; HCT 38.6 % (34.0-46.0); HGB 12.4 gm/dL (11.4-16.0); Lymphocytes # (A) 2.7 k/uL (1.0-4.8); Lymphocytes % (A) 32 %; MCH 26.1 pg (25.0-35.0); MCHC 32.1 g/dL (31.0-37.0); MCV 81.4 fL (80.0-100.0); Mean Platelet Volume 7.5; Monocytes # (A) 0.5 k/uL (0-1.0); Monocytes % (A) 6 %; Neutrophils # (A) 4.8 k/uL (1.3-7.7); Neutrophils % (A) 58 %; Platelet Count 236 k/uL (150-450); RBC 4.74 m/uL (3.80-5.40); RDW 15.6 % (11.5-15.5); WBC 8.4 k/uL (3.8-10.6)
[2018-08-13 16:37] LABS: Appearance,Urine Clear (Clear); Bilirubin,Urine Negative (Negative); Blood,Urine Negative (Negative); Color,Urine Yellow; Glucose,Urine (UA) Negative (Negative); Ketones,Urine Negative (Negative); Leukocyte Esterase,Urine Negative (Negative); Nitrite,Urine Negative (Negative); PH, Urine 6.5 (5.0-8.0); Protein,Urine Negative (Negative); Specific Gravity,Urine 1.016 (1.001-1.035); Urobilinogen,Urine <2.0 mg/dL (<2.0)
[2018-08-13] MEDS ORDERED: KETOROLAC 30 MG/ML 1 ML VIAL IVP STA (16:45)
[2018-08-13 16:48] LABS: ALT 46 U/L (9-52); AST 23 U/L (14-36); Albumin 3.7 g/dL (3.5-5.0); Alkaline Phosphatase 95 U/L (38-126); Amylase 52 U/L (30-110); Anion Gap 7 mmol/L; Blood Urea Nitrogen 11 mg/dL (7-17); Carbon Dioxide 25 mmol/L (22-30); Chloride 106 mmol/L (98-107); Glucose 75 mg/dL (74-99); Lipase 321 U/L (23-300); Potassium 4.2 mmol/L (3.5-5.1); Sodium 138 mmol/L (137-145); Total Bilirubin 0.2 mg/dL (0.2-1.3); Total Protein 6.3 g/dL (6.3-8.2)
[2018-08-13] MEDS ORDERED: HYDROcodone/APAP 5-325MG 1 EACH TAB PO STA (16:56)
[2018-08-13] MEDS ORDERED: HYDROmorphone 0.5 MG/0.5 ML SYRINGE IVP STA (16:58)
--- NOTE | 2018-08-13 17:10 | ED ---
General Adult HPI - General Chief complaint: Nausea/Vomiting/Diarrhea Stated complaint: NVD Time Seen by Provider: 08/13/18 15:07 Source: patient, RN notes reviewed Mode of arrival: ambulatory Limitations: no limitations - History of Present Illness Initial comments: 23-year-old female with a past medical history of asthma, GERD, IBS presents to the emergency department for a chief complaint of nausea vomiting and diarrhea for 4 days. patient states she has been able to keep down water. Patient denies blood or mucus in the stool. Denies any recent travel hospitalizations her intermediate visits. Patient admits to right upper quadrant pain. States she has been diagnosed with fatty liver in the past. Patient denies any alleviating or aggravating factors of the cervical quadrant pain. Patient states with the vomiting and diarrhea she has been feeling weak. She denies fevers at home. She denies any chance of . She denies any lower abdominal pain. Patient has no other complaints at this time including shortness of breath, chest pain, headache, or visual changes. - Related Data Home Medications Medication Instructions Recorded Confirmed hydrOXYzine PAMOATE [Vistaril] 100 mg PO HS 06/20/18 08/13/18 lamoTRIgine [LaMICtal] 100 mg PO DAILY 06/20/18 08/13/18 Albuterol Inhaler [Ventolin Hfa 1 - 2 puff INHALATION RT-Q6H PRN 07/30/18 Inhaler] Budesonide/Formoterol Fumarate 2 puff INHALATION RT-BID 07/30/18 08/13/18 [Symbicort 160-4.5 Mcg Inhaler] Cetirizine HCl [Zyrtec] 10 mg PO DAILY 07/30/18 08/13/18 Ibuprofen [Motrin] 400 mg PO Q8HR PRN 07/30/18 08/13/18 Metoclopramide HCl [Reglan] 5 mg PO TID 07/30/18 08/13/18 Multivitamins, Thera [Multivitamin 1 tab PO DAILY 07/30/18 08/13/18 (formulary)] Ondansetron [Zofran] 4 mg PO Q8HR PRN 08/13/18 08/13/18 Previous Rx's Medication Instructions Recorded Cyclobenzaprine [Flexeril] 10 mg PO TID #10 tab 07/05/18 Allergies Allergy/AdvReac Type Severity Reaction Status Date / Time Penicillins Allergy Severe Anaphylaxis Verified 08/13/18 14:42 Sulfa (Sulfonamide Allergy Severe Anaphylaxis Verified 08/13/18 14:42 Antibiotics) diphenhydramine HCl Allergy Rash/Hives Verified 08/13/18 14:42 [From Benadryl] Review of Systems ROS Statement: Those systems with pertinent positive or pertinent negative responses have been documented in the HPI. ROS Other: All systems not noted in ROS Statement are negative. 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 Past Anesthesia/Blood Transfusion Reactions: No Reported Reaction Additional Past Anesthesia/Blood Transfusion Reaction / Comment(s): Patient does not believe she has had a reaction to anesthesia. Past Psychological History: Anxiety, Depression, Panic Disorder, PTSD, Schizoaffective Disorder, Schizophrenia Smoking Status: Current every day smoker Past Alcohol Use History: None Reported Past Drug Use History: Marijuana - Past Family History Mother Family Medical History: No Reported History Father Family Medical History: No Reported History Additional Family Medical History / Comment(s): bipolar, sever seasonal allergies Brother(s) Family Medical History: No Reported History Sister(s) Family Medical History: No Reported History General Exam Limitations: no limitations General appearance: alert, in no apparent distress Head exam: Present: atraumatic, normocephalic, normal inspection Eye exam: Present: normal appearance, PERRL, EOMI. Absent: scleral icterus, conjunctival injection, periorbital swelling ENT exam: Present: normal exam, normal oropharynx, mucous membranes moist, TM's normal bilaterally, normal external ear exam Neck exam: Present: normal inspection, full ROM. Absent: tenderness, meningismus, lymphadenopathy Respiratory exam: Present: normal lung sounds bilaterally. Absent: respiratory distress, wheezes, rales, rhonchi, stridor Cardiovascular Exam: Present: regular rate, normal rhythm, normal heart sounds. Absent: systolic murmur, diastolic murmur, rubs, gallop, clicks GI/Abdominal exam: Present: soft, tenderness (RUQ tenderness, negative burr sign), normal bowel sounds. Absent: distended, guarding, rebound, rigid Neurological exam: Present: alert, oriented X3, CN II-XII intact Psychiatric exam: Present: normal affect, normal mood Course Vital Signs 08/13/18 14:15 Temperature 98.2 F Pulse Rate 72 Respiratory 18 Rate Blood Pressure 106/71 O2 Sat by Pulse 98 Oximetry Medical Decision Making - Medical Decision Making Patient is well-appearing. Vitals are within except limits. Patient has some minimal right upper quadrant pain without guarding, negative Burr sign. Patient has a history of fatty liver. CBC CMP unremarkable. Lipase only minimally elevated, pancreatitis unlikely. Urine does not show any evidence of infection. HCG negative. Ultrasound of the right upper quadrant shows no acute process. No stones seen in the gallbladder. Patient was given Reglan and Zofran here, has not had any vomiting in the emergency department. Patient tolerating by mouth. At this time it is felt that patient can follow up outpatient as her pain has significantly improved and nausea has improved as well, no vomiting here in the emergency department. Patient will follow up with primary care and return if she has any worsening symptoms. - Lab Data Result diagrams: 08/13/18 16:05 08/13/18 16:05 Lab Results 08/13/18 08/13/18 08/13/18 Range/Units 16:05 16:05 16:05 WBC (3.8-10.6) k/uL RBC (3.80-5.40) m/uL Hgb (11.4-16.0) gm/dL Hct (34.0-46.0) % MCV (80.0-100.0) fL MCH (25.0-35.0) pg MCHC (31.0-37.0) g/dL RDW (11.5-15.5) % Plt Count (150-450) k/uL Neutrophils % % Lymphocytes % % Monocytes % % Eosinophils % % Basophils % % Neutrophils # (1.3-7.7) k/uL Lymphocytes # (1.0-4.8) k/uL Monocytes # (0-1.0) k/uL Eosinophils # (0-0.7) k/uL Basophils # (0-0.2) k/uL Sodium 138 (137-145) mmol/L Potassium 4.2 (3.5-5.1) mmol/L Chloride 106 (98-107) mmol/L Carbon Dioxide 25 (22-30) mmol/L Anion Gap 7 mmol/L BUN 11 (7-17) mg/dL Creatinine 0.71 (0.52-1.04) mg/dL Est GFR (CKD-EPI)AfAm >90 (>60 ml/min/1.73 sqM) Est GFR (CKD-EPI)NonAf >90 (>60 ml/min/1.73 sqM) Glucose 75 (74-99) mg/dL Calcium 9.0 (8.4-10.2) mg/dL Total Bilirubin 0.2 (0.2-1.3) mg/dL AST 23 (14-36) U/L ALT 46 (9-52) U/L Alkaline Phosphatase 95 (38-126) U/L Total Protein 6.3 (6.3-8.2) g/dL Albumin 3.7 (3.5-5.0) g/dL Amylase 52 (30-110) U/L Lipase 321 H (23-300) U/L Urine Color Yellow Urine Appearance Clear (Clear) Urine pH 6.5 (5.0-8.0) Ur Specific [place] 1.016 (1.001-1.035) Urine Protein Negative (Negative) Urine Glucose (UA) Negative (Negative) Urine Ketones Negative (Negative) Urine Blood Negative (Negative) Urine Nitrite Negative (Negative) Urine Bilirubin Negative (Negative) Urine Urobilinogen <2.0 (<2.0) mg/dL Ur Leukocyte Esterase Negative (Negative) Urine HCG, Qual Not Detected (Not Detectd) 08/13/18 Range/Units 16:05 WBC 8.4 (3.8-10.6) k/uL RBC 4.74 (3.80-5.40) m/uL Hgb 12.4 (11.4-16.0) gm/dL Hct 38.6 (34.0-46.0) % MCV 81.4 (80.0-100.0) fL MCH 26.1 (25.0-35.0) pg MCHC 32.1 (31.0-37.0) g/dL RDW 15.6 H (11.5-15.5) % Plt Count 236 (150-450) k/uL Neutrophils % 58 % Lymphocytes % 32 % Monocytes % 6 % Eosinophils % 2 % Basophils % 0 % Neutrophils # 4.8 (1.3-7.7) k/uL Lymphocytes # 2.7 (1.0-4.8) k/uL Monocytes # 0.5 (0-1.0) k/uL Eosinophils # 0.2 (0-0.7) k/uL Basophils # 0.0 (0-0.2) k/uL Sodium (137-145) mmol/L Potassium (3.5-5.1) mmol/L Chloride (98-107) mmol/L Carbon Dioxide (22-30) mmol/L Anion Gap mmol/L BUN (7-17) mg/dL Creatinine (0.52-1.04) mg/dL Est GFR (CKD-EPI)AfAm (>60 ml/min/1.73 sqM) Est GFR (CKD-EPI)NonAf (>60 ml/min/1.73 sqM) Glucose (74-99) mg/dL Calcium (8.4-10.2) mg/dL Total Bilirubin (0.2-1.3) mg/dL AST (14-36) U/L ALT (9-52) U/L Alkaline Phosphatase (38-126) U/L Total Protein (6.3-8.2) g/dL Albumin (3.5-5.0) g/dL Amylase (30-110) U/L Lipase (23-300) U/L Urine Color Urine Appearance (Clear) Urine pH (5.0-8.0) Ur Specific [place] (1.001-1.035) Urine Protein (Negative) Urine Glucose (UA) (Negative) Urine Ketones (Negative) Urine Blood (Negative) Urine Nitrite (Negative) Urine Bilirubin (Negative) Urine Urobilinogen (<2.0) mg/dL Ur Leukocyte Esterase (Negative) Urine HCG, Qual (Not Detectd) Disposition Clinical Impression: Nausea vomiting and diarrhea, Abdominal pain Disposition: HOME SELF-CARE Condition: Good Instructions (If sedation given, give patient instructions): Acute Nausea and Vomiting (ED), Acute Diarrhea (ED), Abdominal Pain (ED) Additional Instructions: Please take Zofran at home for nausea. Please follow up with primary care in 1- 2 days. Please return to the emergency department if you have any worsening symptoms. Is patient prescribed a controlled substance at d/c from ED?: No Referrals: Lauren Denson MD [Primary Care Provider] - 1-2 days Time of Disposition: 18:16
--- NOTE | 2018-08-13 17:36 | US ---
EXAMINATION TYPE: US abdomen limited DATE OF EXAM: 08/13/2018 COMPARISON: Multiple US 's and CT's CLINICAL HISTORY: RUQ pain, h/o of fatty liver. EXAM MEASUREMENTS: Liver Length: 15.4 cm Gallbladder Wall: 0.2 cm CBD: 0.4 cm Right Kidney: 11.9 x 4.1 x 4.9 cm Pancreas: visualized portions wnl Liver: difficult to penetrate Gallbladder: No stones seen Evidence for sonographic Burr's sign: No CBD: wnl Right Kidney: No hydronephrosis or masses seen. IMPRESSION: No acute process.
[2018-08-13] MEDS ORDERED: ONDANSETRON 4 MG ODT STARTER PACK 2 TAB BTL PO STA (18:16)
[2018-08-13 18:50] VITALS: BP 111/68; PULSE 70; TEMP 97.4
== END 2018-08-13 18:45 | disposition home or self-care (01) ==
LOC: EC 14:00
DX: R11.2 Nausea with vomiting, unspecified (principal); R19.7 Diarrhea, unspecified; R10.11 Right upper quadrant pain; Z32.02 Encounter for pregnancy test, result negative; J45.909 Unspecified asthma, uncomplicated; K21.9 Gastro-esophageal reflux disease without esophagitis; F25.9 Schizoaffective disorder, unspecified; F17.200 Nicotine dependence, unspecified, uncomplicated; Z79.51 Long term (current) use of inhaled steroids; Z79.899 Other long term (current) drug therapy; Z88.0 Allergy status to penicillin; Z88.2 Allergy status to sulfonamides; Z88.8 Allergy status to other drugs, medicaments and biological substances; Z87.442 Personal history of urinary calculi
CPT/HCPCS: 36415; 80053; 82150; 83690; 85025; 81003; 81025; 76705; 99284; 96374; 96375 ×2; 96361 ×2; J2765; J2405; S0119; J1170

== ENCOUNTER 2018-08-18 12:20 | Emergency (ER) | payer OTHER ==
[2018-08-18 12:36] VITALS: RESP 18; TEMP 98.3
[2018-08-18] MEDS ORDERED: SODIUM CHLORIDE 0.9% 1,000 ML IV STA (12:59)
[2018-08-18] MEDS ORDERED: ONDANSETRON 4 MG/2 ML VIAL IVP STA (12:59)
[2018-08-18 13:56] LABS: Basophils % (A) 0 %; Eosinophils # (A) 0.1 k/uL (0-0.7); Eosinophils % (A) 1 %; HGB 12.9 gm/dL (11.4-16.0); Lymphocytes # (A) 2.7 k/uL (1.0-4.8); Lymphocytes % (A) 27 %; MCH 26.4 pg (25.0-35.0); MCHC 32.3 g/dL (31.0-37.0); MCV 81.8 fL (80.0-100.0); Mean Platelet Volume 7.7; Monocytes # (A) 0.4 k/uL (0-1.0); Monocytes % (A) 4 %; Neutrophils # (A) 6.3 k/uL (1.3-7.7); Neutrophils % (A) 64 %; Platelet Count 267 k/uL (150-450); RBC 4.89 m/uL (3.80-5.40); RDW 15.6 % (11.5-15.5); WBC 9.8 k/uL (3.8-10.6)
[2018-08-18 14:10] LABS: Appearance,Urine Clear (Clear); Bilirubin,Urine Negative (Negative); Blood,Urine Negative (Negative); Color,Urine Yellow; Glucose,Urine (UA) Negative (Negative); Ketones,Urine Negative (Negative); Leukocyte Esterase,Urine Negative (Negative); Nitrite,Urine Negative (Negative); PH, Urine 5.5 (5.0-8.0); Protein,Urine Negative (Negative); Specific Gravity,Urine 1.018 (1.001-1.035); Urobilinogen,Urine <2.0 mg/dL (<2.0)
--- NOTE | 2018-08-18 14:21 | ED ---
Abdominal Pain HPI - General Chief Complaint: Abdominal Pain Stated Complaint: side pain/dizziness Time Seen by Provider: 08/18/18 12:58 Source: patient, RN notes reviewed Mode of arrival: ambulatory Limitations: no limitations - History of Present Illness Initial Comments: 23-year-old female presents emergency Department chief complaint of nausea vomiting abdominal pain. Patient states that she was seen a few days ago and was told that her pancreas and liver enzymes were elevated. Patient states she just does not feel well. She did have an ultrasound which showed no acute abnormality. Patient reports no fever or chills. Denies any melena or hematochezia. Patient states she feels dehydrated. Denies chest pain or shortness breath - Related Data Home Medications Medication Instructions Recorded Confirmed hydrOXYzine PAMOATE [Vistaril] 100 mg PO HS 06/20/18 08/18/18 lamoTRIgine [LaMICtal] 100 mg PO DAILY 06/20/18 08/18/18 Albuterol Inhaler [Ventolin Hfa 1 - 2 puff INHALATION RT-Q6H PRN 07/30/18 Inhaler] Budesonide/Formoterol Fumarate 2 puff INHALATION RT-BID 07/30/18 08/18/18 [Symbicort 160-4.5 Mcg Inhaler] Cetirizine HCl [Zyrtec] 10 mg PO DAILY 07/30/18 08/18/18 Ibuprofen [Motrin] 400 mg PO Q8HR PRN 07/30/18 08/18/18 Metoclopramide HCl [Reglan] 5 mg PO TID 07/30/18 08/18/18 Multivitamins, Thera [Multivitamin 1 tab PO DAILY 07/30/18 08/18/18 (formulary)] Ondansetron [Zofran] 4 mg PO Q8HR PRN 08/13/18 08/18/18 Previous Rx's Medication Instructions Recorded Cyclobenzaprine [Flexeril] 10 mg PO TID #10 tab 07/05/18 Omeprazole 40 mg PO DAILY #14 capsule. 08/18/18 Ondansetron Odt [Zofran Odt] 4 mg PO Q8HR PRN #10 tab 08/18/18 Allergies Allergy/AdvReac Type Severity Reaction Status Date / Time Penicillins Allergy Severe Anaphylaxis Verified 08/18/18 13:41 Sulfa (Sulfonamide Allergy Severe Anaphylaxis Verified 08/18/18 13:41 Antibiotics) diphenhydramine HCl Allergy Rash/Hives Verified 08/18/18 13:41 [From Benadryl] Review of Systems ROS Statement: Those systems with pertinent positive or pertinent negative responses have been documented in the HPI. ROS Other: All systems not noted in ROS Statement are negative. 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 Past Anesthesia/Blood Transfusion Reactions: No Reported Reaction Additional Past Anesthesia/Blood Transfusion Reaction / Comment(s): Patient does not believe she has had a reaction to anesthesia. Past Psychological History: Anxiety, Depression, Panic Disorder, PTSD, Schizoaffective Disorder, Schizophrenia Smoking Status: Current every day smoker Past Alcohol Use History: None Reported Past Drug Use History: Marijuana - Past Family History Mother Family Medical History: No Reported History Father Family Medical History: No Reported History Additional Family Medical History / Comment(s): bipolar, sever seasonal allergies Brother(s) Family Medical History: No Reported History Sister(s) Family Medical History: No Reported History General Exam Limitations: no limitations General appearance: alert, in no apparent distress Head exam: Present: atraumatic, normocephalic, normal inspection Respiratory exam: Present: normal lung sounds bilaterally. Absent: respiratory distress, wheezes, rales, rhonchi, stridor Cardiovascular Exam: Present: regular rate, normal rhythm, normal heart sounds. Absent: systolic murmur, diastolic murmur, rubs, gallop, clicks GI/Abdominal exam: Present: soft, tenderness (Mild right-sided), normal bowel sounds. Absent: distended, guarding, rebound, rigid Back exam: Absent: CVA tenderness (R), CVA tenderness (L) Skin exam: Present: warm, dry, intact, normal color. Absent: rash Course Vital Signs 08/18/18 12:33 Temperature 98.3 F Pulse Rate 77 Respiratory 18 Rate Blood Pressure 114/76 O2 Sat by Pulse 98 Oximetry Medical Decision Making - Medical Decision Making 23-year-old female presented for recheck of right side pain. Patient has unremarkable labwork had prior ultrasound which was unremarkable. Patient given antiemetics and omeprazole follow-up with on-call surgery. Return parameters were discussed. - Lab Data Result diagrams: 08/18/18 13:30 08/18/18 13:30 Lab Results 08/18/18 08/18/18 08/18/18 Range/Units 13:30 13:30 13:30 WBC 9.8 (3.8-10.6) k/uL RBC 4.89 (3.80-5.40) m/uL Hgb 12.9 (11.4-16.0) gm/dL Hct 40.0 (34.0-46.0) % MCV 81.8 (80.0-100.0) fL MCH 26.4 (25.0-35.0) pg MCHC 32.3 (31.0-37.0) g/dL RDW 15.6 H (11.5-15.5) % Plt Count 267 (150-450) k/uL Neutrophils % 64 % Lymphocytes % 27 % Monocytes % 4 % Eosinophils % 1 % Basophils % 0 % Neutrophils # 6.3 (1.3-7.7) k/uL Lymphocytes # 2.7 (1.0-4.8) k/uL Monocytes # 0.4 (0-1.0) k/uL Eosinophils # 0.1 (0-0.7) k/uL Basophils # 0.0 (0-0.2) k/uL Sodium 141 (137-145) mmol/L Potassium 4.4 (3.5-5.1) mmol/L Chloride 108 H (98-107) mmol/L Carbon Dioxide 26 (22-30) mmol/L Anion Gap 7 mmol/L BUN 10 (7-17) mg/dL Creatinine 0.70 (0.52-1.04) mg/dL Est GFR (CKD-EPI)AfAm >90 (>60 ml/min/1.73 sqM) Est GFR (CKD-EPI)NonAf >90 (>60 ml/min/1.73 sqM) Glucose 91 (74-99) mg/dL Calcium 9.5 (8.4-10.2) mg/dL Total Bilirubin 0.2 (0.2-1.3) mg/dL AST 31 (14-36) U/L ALT 55 H (9-52) U/L Alkaline Phosphatase 98 (38-126) U/L Total Protein 7.2 (6.3-8.2) g/dL Albumin 4.3 (3.5-5.0) g/dL Lipase 57 (23-300) U/L Urine Color Yellow Urine Appearance Clear (Clear) Urine pH 5.5 (5.0-8.0) Ur Specific [place] 1.018 (1.001-1.035) Urine Protein Negative (Negative) Urine Glucose (UA) Negative (Negative) Urine Ketones Negative (Negative) Urine Blood Negative (Negative) Urine Nitrite Negative (Negative) Urine Bilirubin Negative (Negative) Urine Urobilinogen <2.0 (<2.0) mg/dL Ur Leukocyte Esterase Negative (Negative) Urine HCG, Qual (Not Detectd) 08/18/18 Range/Units 13:30 WBC (3.8-10.6) k/uL RBC (3.80-5.40) m/uL Hgb (11.4-16.0) gm/dL Hct (34.0-46.0) % MCV (80.0-100.0) fL MCH (25.0-35.0) pg MCHC (31.0-37.0) g/dL RDW (11.5-15.5) % Plt Count (150-450) k/uL Neutrophils % % Lymphocytes % % Monocytes % % Eosinophils % % Basophils % % Neutrophils # (1.3-7.7) k/uL Lymphocytes # (1.0-4.8) k/uL Monocytes # (0-1.0) k/uL Eosinophils # (0-0.7) k/uL Basophils # (0-0.2) k/uL Sodium (137-145) mmol/L Potassium (3.5-5.1) mmol/L Chloride (98-107) mmol/L Carbon Dioxide (22-30) mmol/L Anion Gap mmol/L BUN (7-17) mg/dL Creatinine (0.52-1.04) mg/dL Est GFR (CKD-EPI)AfAm (>60 ml/min/1.73 sqM) Est GFR (CKD-EPI)NonAf (>60 ml/min/1.73 sqM) Glucose (74-99) mg/dL Calcium (8.4-10.2) mg/dL Total Bilirubin (0.2-1.3) mg/dL AST (14-36) U/L ALT (9-52) U/L Alkaline Phosphatase (38-126) U/L Total Protein (6.3-8.2) g/dL Albumin (3.5-5.0) g/dL Lipase (23-300) U/L Urine Color Urine Appearance (Clear) Urine pH (5.0-8.0) Ur Specific [place] (1.001-1.035) Urine Protein (Negative) Urine Glucose (UA) (Negative) Urine Ketones (Negative) Urine Blood (Negative) Urine Nitrite (Negative) Urine Bilirubin (Negative) Urine Urobilinogen (<2.0) mg/dL Ur Leukocyte Esterase (Negative) Urine HCG, Qual Not Detected (Not Detectd) Disposition Clinical Impression: Abdominal pain Disposition: HOME SELF-CARE Condition: Stable Instructions (If sedation given, give patient instructions): Abdominal Pain (ED ) Additional Instructions: Please return to the Emergency Department if symptoms worsen or any other concerns. Prescriptions: Omeprazole 40 mg PO DAILY #14 capsule. Ondansetron Odt [Zofran Odt] 4 mg PO Q8HR PRN #10 tab PRN Reason: Nausea Is patient prescribed a controlled substance at d/c from ED?: No Referrals: Lauren Denson MD [Primary Care Provider] - 1-2 days Dennis Coburn MD [STAFF PHYSICIAN] - 1-2 days Time of Disposition: 14:36
[2018-08-18 14:29] LABS: ALT 55 U/L (9-52); AST 31 U/L (14-36); Albumin 4.3 g/dL (3.5-5.0); Alkaline Phosphatase 98 U/L (38-126); Anion Gap 7 mmol/L; Blood Urea Nitrogen 10 mg/dL (7-17); Calcium 9.5 mg/dL (8.4-10.2); Carbon Dioxide 26 mmol/L (22-30); Chloride 108 mmol/L (98-107); Glucose 91 mg/dL (74-99); Lipase 57 U/L (23-300); Potassium 4.4 mmol/L (3.5-5.1); Sodium 141 mmol/L (137-145); Total Bilirubin 0.2 mg/dL (0.2-1.3); Total Protein 7.2 g/dL (6.3-8.2)
[2018-08-18 15:02] VITALS: BP 120/70; PULSE 82
== END 2018-08-18 15:00 | disposition home or self-care (01) ==
LOC: EC 12:20
DX: R10.9 Unspecified abdominal pain (principal); R11.2 Nausea with vomiting, unspecified; R42 Dizziness and giddiness; Z32.02 Encounter for pregnancy test, result negative; J45.909 Unspecified asthma, uncomplicated; F25.9 Schizoaffective disorder, unspecified; F17.200 Nicotine dependence, unspecified, uncomplicated; Z79.51 Long term (current) use of inhaled steroids; Z79.899 Other long term (current) drug therapy; Z88.0 Allergy status to penicillin; Z88.2 Allergy status to sulfonamides; Z88.8 Allergy status to other drugs, medicaments and biological substances
CPT/HCPCS: 36415; 80053; 83690; 85025; 81003; 81025; 99284; 96374; 96361; J2405

== ENCOUNTER 2018-08-23 22:32 | Emergency (ER) | payer OTHER ==
[2018-08-23] MEDS ORDERED: ONDANSETRON 4 MG/2 ML VIAL IVP STA (23:36)
[2018-08-23] MEDS ORDERED: SODIUM CHLORIDE 0.9% 1,000 ML IV STA (23:36)
[2018-08-23] MEDS ORDERED: ACETAMINOPHEN IV (For NPO) 1,000 MG in EMPTY BAG 1 BAG IVPB STA (23:37)
[2018-08-23 23:47] LABS: Appearance,Urine Clear (Clear); Basophils % (A) 0 %; Bilirubin,Urine Negative (Negative); Blood,Urine Negative (Negative); Color,Urine Yellow; Eosinophils # (A) 0.1 k/uL (0-0.7); Eosinophils % (A) 1 %; Glucose,Urine (UA) Negative (Negative); HCT 39.2 % (34.0-46.0); HGB 12.8 gm/dL (11.4-16.0); Ketones,Urine Negative (Negative); Leukocyte Esterase,Urine Negative (Negative); Lymphocytes # (A) 2.6 k/uL (1.0-4.8); Lymphocytes % (A) 26 %; MCH 26.7 pg (25.0-35.0); MCHC 32.7 g/dL (31.0-37.0); MCV 81.8 fL (80.0-100.0); Mean Platelet Volume 8.1; Monocytes # (A) 0.6 k/uL (0-1.0); Monocytes % (A) 6 %; Neutrophils # (A) 6.3 k/uL (1.3-7.7); Neutrophils % (A) 65 %; Nitrite,Urine Negative (Negative); Platelet Count 263 k/uL (150-450); Protein,Urine Negative (Negative); RBC 4.79 m/uL (3.80-5.40); RDW 15.8 % (11.5-15.5); Specific Gravity,Urine 1.023 (1.001-1.035); Urobilinogen,Urine <2.0 mg/dL (<2.0); WBC 9.8 k/uL (3.8-10.6)
[2018-08-23 23:56] LABS: ALT 68 U/L (9-52); AST 29 U/L (14-36); Albumin 4.2 g/dL (3.5-5.0); Alkaline Phosphatase 105 U/L (38-126); Amylase 57 U/L (30-110); Anion Gap 8 mmol/L; Blood Urea Nitrogen 11 mg/dL (7-17); Calcium 9.4 mg/dL (8.4-10.2); Carbon Dioxide 25 mmol/L (22-30); Chloride 107 mmol/L (98-107); Glucose 88 mg/dL (74-99); Lipase 157 U/L (23-300); Potassium 4.3 mmol/L (3.5-5.1); Sodium 140 mmol/L (137-145); Total Bilirubin 0.2 mg/dL (0.2-1.3)
--- NOTE | 2018-08-24 00:05 | XR ---
EXAMINATION TYPE: XR KUB DATE OF EXAM: 08/23/2018 COMPARISON: 02/06/2016 HISTORY: Abdominal pain TECHNIQUE: 2 views upright FINDINGS: There is no sign of intestinal obstruction or pneumoperitoneum. Fecal pattern is normal. Th ere are no pathologic calcifications. Lung bases are clear. IMPRESSION: Nonacute abdomen. No change.
[2018-08-24] MEDS ORDERED: ONDANSETRON 4 MG ODT STARTER PACK 2 TAB BTL PO STA (01:01)
--- NOTE | 2018-08-24 01:01 | ED ---
Abdominal Pain HPI - General Chief Complaint: Abdominal Pain Stated Complaint: R flank pain Time Seen by Provider: 08/23/18 22:46 Source: patient Mode of arrival: ambulatory Limitations: no limitations - History of Present Illness Initial Comments: 23-year-old female patient who is scheduled for cholecystectomy on Sunday presents to the emergency department today for evaluation of vomiting and right upper quadrant abdominal pain. Patient states that symptoms started for her this morning. Patient states she's been unable to keep down any food or fluids throughout the day. She denies any fevers or chills with this. Denies any constipation or diarrhea. She denies any urinary symptoms. Patient states her symptoms have been present over the last several weeks which is why she is getting her gallbladder out. Patient denies any recent rash, shortness breath, chest pain, back pain, numbness, tingling, dizziness, weakness, hematuria, dysuria, urinary urgency, urinary frequency, headache, visual changes, or any other complaints. She denies chance of . - Related Data Home Medications Medication Instructions Recorded Confirmed No Known Home Medications 08/23/18 08/23/18 Allergies Allergy/AdvReac Type Severity Reaction Status Date / Time Penicillins Allergy Severe Anaphylaxis Verified 08/23/18 23:02 Sulfa (Sulfonamide Allergy Severe Anaphylaxis Verified 08/23/18 23:02 Antibiotics) diphenhydramine HCl Allergy Nausea Verified 08/23/18 23:02 [From Benadryl] Review of Systems ROS Statement: Those systems with pertinent positive or pertinent negative responses have been documented in the HPI. ROS Other: All systems not noted in ROS Statement are negative. 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 Past Anesthesia/Blood Transfusion Reactions: No Reported Reaction Additional Past Anesthesia/Blood Transfusion Reaction / Comment(s): . Past Psychological History: Anxiety, Bipolar, Depression, Panic Disorder, PTSD, Schizoaffective Disorder Smoking Status: Current every day smoker Past Alcohol Use History: None Reported Past Drug Use History: Marijuana - Past Family History Mother Family Medical History: No Reported History Father Family Medical History: No Reported History Additional Family Medical History / Comment(s): bipolar, sever seasonal allergies Brother(s) Family Medical History: No Reported History Sister(s) Family Medical History: No Reported History General Exam Limitations: no limitations General appearance: alert, in no apparent distress, other (Physical well- developed, well-nourished adult female patient in no acute distress. Vital signs upon presentation are temperature 98.3F, pulse 81, respirations 20, blood pressure 126/84, pulse ox 98% on room air.) Eye exam: Present: normal appearance, PERRL, EOMI. Absent: scleral icterus, conjunctival injection, periorbital swelling Respiratory exam: Present: normal lung sounds bilaterally. Absent: respiratory distress, wheezes, rales, rhonchi, stridor Cardiovascular Exam: Present: regular rate, normal rhythm, normal heart sounds. Absent: systolic murmur, diastolic murmur, rubs, gallop, clicks GI/Abdominal exam: Present: soft, tenderness (Right upper quadrant tenderness, midepigastric tenderness), normal bowel sounds. Absent: distended, guarding, rebound, rigid Neurological exam: Present: alert, oriented X3, CN II-XII intact Psychiatric exam: Present: normal affect, normal mood Skin exam: Present: warm, dry, intact, normal color. Absent: rash Course Vital Signs 08/23/18 08/24/18 22:39 01:09 Temperature 98.3 F 98 F Pulse Rate 81 78 Respiratory 20 18 Rate Blood Pressure 126/84 133/73 O2 Sat by Pulse 98 97 Oximetry Medical Decision Making - Medical Decision Making 23-year-old female patient presented to the emergency department today for evaluation of right upper quadrant abdominal pain and vomiting. Physical examination did reveal mild midepigastric and right upper quadrant tenderness. Labs reviewed and were unremarkable. Patient is scheduled for cholecystectomy on Sunday. She is given IV fluids, pain medication, nausea medication here in the department. Shows report improvement of her symptoms. She'll be discharged home with prescription for Zofran. She is instructed to continue with her plan for cholecystectomy and Sunday. Return parameters discussed in detail. She verbalizes understanding and agrees with this plan. - Lab Data Result diagrams: 08/23/18 22:56 08/23/18 22:56 Lab Results 08/23/18 08/23/18 08/23/18 Range/Units 22:56 22:56 22:56 WBC 9.8 (3.8-10.6) k/uL RBC 4.79 (3.80-5.40) m/uL Hgb 12.8 (11.4-16.0) gm/dL Hct 39.2 (34.0-46.0) % MCV 81.8 (80.0-100.0) fL MCH 26.7 (25.0-35.0) pg MCHC 32.7 (31.0-37.0) g/dL RDW 15.8 H (11.5-15.5) % Plt Count 263 (150-450) k/uL Neutrophils % 65 % Lymphocytes % 26 % Monocytes % 6 % Eosinophils % 1 % Basophils % 0 % Neutrophils # 6.3 (1.3-7.7) k/uL Lymphocytes # 2.6 (1.0-4.8) k/uL Monocytes # 0.6 (0-1.0) k/uL Eosinophils # 0.1 (0-0.7) k/uL Basophils # 0.0 (0-0.2) k/uL Sodium 140 (137-145) mmol/L Potassium 4.3 (3.5-5.1) mmol/L Chloride 107 (98-107) mmol/L Carbon Dioxide 25 (22-30) mmol/L Anion Gap 8 mmol/L BUN 11 (7-17) mg/dL Creatinine 0.69 (0.52-1.04) mg/dL Est GFR (CKD-EPI)AfAm >90 (>60 ml/min/1.73 sqM) Est GFR (CKD-EPI)NonAf >90 (>60 ml/min/1.73 sqM) Glucose 88 (74-99) mg/dL Calcium 9.4 (8.4-10.2) mg/dL Total Bilirubin 0.2 (0.2-1.3) mg/dL AST 29 (14-36) U/L ALT 68 H (9-52) U/L Alkaline Phosphatase 105 (38-126) U/L Total Protein 7.0 (6.3-8.2) g/dL Albumin 4.2 (3.5-5.0) g/dL Amylase 57 (30-110) U/L Lipase 157 (23-300) U/L Urine Color Yellow Urine Appearance Clear (Clear) Urine pH 6.0 (5.0-8.0) Ur Specific [place] 1.023 (1.001-1.035) Urine Protein Negative (Negative) Urine Glucose (UA) Negative (Negative) Urine Ketones Negative (Negative) Urine Blood Negative (Negative) Urine Nitrite Negative (Negative) Urine Bilirubin Negative (Negative) Urine Urobilinogen <2.0 (<2.0) mg/dL Ur Leukocyte Esterase Negative (Negative) - Radiology Data Radiology results: report reviewed, image reviewed KUB x-ray of the abdomen was obtained. Report was reviewed in its entirety. Impression by Dr. Blanc shows nonacute abdomen no change. Disposition Clinical Impression: Abdominal pain Disposition: HOME SELF-CARE Condition: Good Instructions (If sedation given, give patient instructions): Abdominal Pain (ED ) Additional Instructions: Clear liquid diet until you're surgery on Sunday. Follow-up with your surgeon as planned. Return to the emergency department immediately for any new, worsening, or concerning symptoms. Is patient prescribed a controlled substance at d/c from ED?: No Referrals: Lauren Denson MD [Primary Care Provider] - 1-2 days Time of Disposition: 01:01
[2018-08-24 01:12] VITALS: BP 133/73; PULSE 78; RESP 18; TEMP 98
== END 2018-08-24 01:12 | disposition home or self-care (01) ==
LOC: EC 22:32
DX: R10.11 Right upper quadrant pain (principal); R11.0 Nausea; R10.816 Epigastric abdominal tenderness; F17.200 Nicotine dependence, unspecified, uncomplicated; Z88.0 Allergy status to penicillin; Z88.2 Allergy status to sulfonamides; Z88.8 Allergy status to other drugs, medicaments and biological substances
CPT/HCPCS: 36415; 80053; 82150; 83690; 85025; 81003; 74018; 99284; 96365; 96375; 96361; J2405; J0131; S0119

== ENCOUNTER → 2018-08-23 | Outpatient (CLI) | payer OTHER ==
--- NOTE | 2018-08-23 15:21 | NM ---
EXAMINATION TYPE: NM hepatobiliary w EF DATE OF EXAM: 08/23/2018 COMPARISON: Ultrasound 08/13/2017 HISTORY: K 82.8 epigastric pain, abdominal pain and decreased appetite TECHNIQUE: After the intravenous administration of 5.14 mCi Tc 99m Mebrofenin hepatobiliary scintigra phy is performed. Immediate images post injection. FINDINGS: There is satisfactory initial accumulation of tracer by the liver. The gallbladder is visualized wit hin 8 minutes. The small bowel activity is noted on delayed imaging. At one hour 8 ounces of oral e nsure plus is given to mimic CCK and gallbladder ejection fraction is calculated at 50 %, in the norm al range. Therefore there is no scintigraphic evidence of cystic or common bile duct obstruction to suggest acute cholecystitis or gallbladder dyskinesia. IMPRESSION: Delayed visualization of the small bowel, normal gallbladder ejection fraction
== END | disposition home or self-care (01) ==
LOC: RADNMMAIN 11:31
PROVIDERS: ATTEND Surgery
DX: R10.84 Generalized abdominal pain (principal)
CPT/HCPCS: 78226; A9537

== ENCOUNTER 2018-08-26 07:44 | Day surgery (SDC) | payer OTHER ==
[2018-08-23 10:44] VITALS: BMI 40.2
[~2018-08-26 07:44] MED LIST: LACTATED RINGERS 1,000 ML IV SCH
[2018-08-26 08:06] VITALS: TEMP 98.5
[2018-08-26] MEDS ORDERED: LIDOCAINE 1% 20 ML VIAL (10MG/ML) FOR IV START INTRADERMA ONE (08:15)
[2018-08-26] MEDS ORDERED: PROPOFOL 10 MG/ML 20 ML VIAL IV ONE (08:39)
[2018-08-26] MEDS ORDERED: LIDOCAINE 1% INJ 10MG/ML (20 ML MDV) ONE (08:39)
--- NOTE | 2018-08-26 08:46 | P.GSHP ---
History of Present Illness H&P Date: 08/26/18 Chief Complaint: GI bleed This a 20-year-old female who's had issues with GI bleed. Patient rents today for EGD. 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 Past Anesthesia/Blood Transfusion Reactions: No Reported Reaction Additional Past Anesthesia/Blood Transfusion Reaction / Comment(s): . Past Psychological History: Anxiety, Bipolar, Depression, Panic Disorder, PTSD, Schizoaffective Disorder Smoking Status: Current every day smoker Past Alcohol Use History: None Reported Past Drug Use History: Marijuana - Past Family History Mother Family Medical History: No Reported History Father Family Medical History: No Reported History Additional Family Medical History / Comment(s): bipolar, sever seasonal allergies Brother(s) Family Medical History: No Reported History Sister(s) Family Medical History: No Reported History Medications and Allergies Home Medications Medication Instructions Recorded Confirmed Type No Known Home Medications 08/23/18 08/26/18 History Allergies Allergy/AdvReac Type Severity Reaction Status Date / Time Penicillins Allergy Severe Anaphylaxis Verified 08/26/18 07:54 Sulfa (Sulfonamide Allergy Severe Anaphylaxis Verified 08/26/18 07:54 Antibiotics) diphenhydramine HCl Allergy Nausea Verified 08/26/18 07:54 [From Benadryl] Surgical - Exam Vital Signs Temp Pulse Resp BP Pulse Ox 98.5 F 76 16 101/56 95 08/26/18 08:03 08/26/18 08:03 08/26/18 08:03 08/26/18 08:03 08/26/18 08:03 - General well developed, well nourished, moderate distress - Eyes PERRL - ENT normal pinna - Neck no masses - Respiratory normal expansion - Abdomen Obese Abdomen: soft, non tender Assessment and Plan Assessment: GI bleed. We'll perform EGD.
--- NOTE | 2018-08-26 08:51 | P.OP ---
Date of Procedure: 08/26/18 Preoperative Diagnosis: GI bleed Postoperative Diagnosis: Mild antral gastritis Procedure(s) Performed: EGD Anesthesia: MAC Surgeon: Dennis Coburn Pathology: other (Antrum) Condition: stable Disposition: PACU Description of Procedure: The patient's placed on the endoscopy table lateral position. She received IV sedation. The gastroscope placed oropharynx and passed in the esophagus and into the stomach. Scope was then placed through the pylorus. The first and second portion of the duodenum appeared normal. The scope was then brought back the antrum and there was minimal inflammation. A biopsies performed. There is known to any ulcers. There is known to any blood in the stomach or the duodenum. Scope was unretroflexed and remainder stomach appeared normal. The GE junction was at 40 cm. The distal esophagus appeared normal. The proximal esophagus appeared normal. The scope was withdrawn for patient.
[2018-08-26] MEDS ORDERED: ONDANSETRON 4 MG/2 ML VIAL IVP ONE (09:09)
[2018-08-26 09:23] VITALS: BP 93/63; RESP 18
[2018-08-26 09:28] VITALS: PULSE 65
== END 2018-08-26 09:42 | disposition home or self-care (01) ==
LOC: ORWHC2ENDO 07:44
PROVIDERS: ATTEND Surgery
DX: K29.50 Unspecified chronic gastritis without bleeding (principal); J45.909 Unspecified asthma, uncomplicated; K21.9 Gastro-esophageal reflux disease without esophagitis; Z87.442 Personal history of urinary calculi; L40.9 Psoriasis, unspecified; K76.9 Liver disease, unspecified; F25.9 Schizoaffective disorder, unspecified; F17.200 Nicotine dependence, unspecified, uncomplicated; Z88.0 Allergy status to penicillin; Z88.2 Allergy status to sulfonamides; Z88.8 Allergy status to other drugs, medicaments and biological substances
CPT/HCPCS: 81025; 88305; 43239; J2405; J2001; J2704

== ENCOUNTER 2018-09-30 17:29 | Emergency (ER) | payer OTHER ==
[2018-09-30 18:15] VITALS: TEMP 98.2
[2018-09-30 18:48] LABS: Basophils % (A) 0 %; Eosinophils # (A) 0.1 k/uL (0-0.7); Eosinophils % (A) 0 %; HCT 38.5 % (34.0-46.0); HGB 12.5 gm/dL (11.4-16.0); Lymphocytes # (A) 1.7 k/uL (1.0-4.8); Lymphocytes % (A) 12 %; MCH 26.8 pg (25.0-35.0); MCHC 32.3 g/dL (31.0-37.0); MCV 82.8 fL (80.0-100.0); Mean Platelet Volume 8.6; Monocytes # (A) 0.4 k/uL (0-1.0); Monocytes % (A) 3 %; Neutrophils # (A) 11.9 k/uL (1.3-7.7); Neutrophils % (A) 84 %; Platelet Count 251 k/uL (150-450); RBC 4.66 m/uL (3.80-5.40); RDW 15.6 % (11.5-15.5); WBC 14.2 k/uL (3.8-10.6)
[2018-09-30 18:55] LABS: Appearance,Urine Cloudy (Clear); Bilirubin,Urine Negative (Negative); Blood,Urine Negative (Negative); Color,Urine Yellow; Glucose,Urine (UA) Negative (Negative); Ketones,Urine Trace (Negative); Leukocyte Esterase,Urine Negative (Negative); Mucus,Urine Rare /hpf; Nitrite,Urine Negative (Negative); Protein,Urine Trace (Negative); RBC,Urine 7 /hpf (0-5); Specific Gravity,Urine 1.026 (1.001-1.035); Squamous Epithelial Cell,Urine 13 /hpf (0-4); Urobilinogen,Urine <2.0 mg/dL (<2.0); WBC,Urine 2 /hpf (0-5)
[2018-09-30 19:00] LABS: ALT 41 U/L (9-52); AST 23 U/L (14-36); Albumin 4.1 g/dL (3.5-5.0); Alkaline Phosphatase 104 U/L (38-126); Amylase 33 U/L (30-110); Anion Gap 9 mmol/L; Blood Urea Nitrogen 14 mg/dL (7-17); Calcium 9.4 mg/dL (8.4-10.2); Carbon Dioxide 24 mmol/L (22-30); Chloride 107 mmol/L (98-107); Glucose 151 mg/dL (74-99); Lipase 38 U/L (23-300); Potassium 4.3 mmol/L (3.5-5.1); Sodium 140 mmol/L (137-145); Total Bilirubin 0.2 mg/dL (0.2-1.3); Total Protein 6.9 g/dL (6.3-8.2)
[2018-09-30] MEDS ORDERED: SODIUM CHLORIDE 0.9% 500 ML 500 ML IV STA (19:09)
--- NOTE | 2018-09-30 20:20 | ED ---
Abdominal Pain HPI - General Chief Complaint: Abdominal Pain Stated Complaint: abdominal pain Time Seen by Provider: 09/30/18 19:07 Source: patient Mode of arrival: ambulatory Limitations: no limitations - History of Present Illness Initial Comments: 23-year-old female presenting today for bilateral lower abdominal cramping x 2 days. Patient states that she is concerned for STD. Patient states she has had multiple STDs in the past including Trichomonas and Chlamydia. Patient states that she does have concern for current STD and vaginal discharge. Pt denies severe abdomial pain, nausea, vomiting, diarrhea, fever, chills, malaise. Pt admits to dysuria. Remaining view system negative, patient denies any recent shortness of breath, chest pain, back pain, nausea or vomiting, numbness or tingling, hematuria, constipation or diarrhea, headaches or visual changes, or any other complaints. Upon arrival patient's vital signs within normal limits. - Related Data Home Medications Medication Instructions Recorded Confirmed Chcojgrx-Riwewiddk-Pg Otic 4 drops BOTH EARS TID 09/30/18 09/30/18 [Cortisporin Otic Soln] Paliperidone IM [Invega Sustenna] 234 mg IM Q28D 09/30/18 09/30/18 Promethazine/Dextromethorphan 5 ml PO Q6H 09/30/18 09/30/18 [Promethazine-Dm Syrup] predniSONE 40 mg PO DAILY 09/30/18 09/30/18 Allergies Allergy/AdvReac Type Severity Reaction Status Date / Time Penicillins Allergy Severe Anaphylaxis Verified 09/30/18 20:16 Sulfa (Sulfonamide Allergy Severe Anaphylaxis Verified 09/30/18 20:16 Antibiotics) diphenhydramine HCl Allergy Nausea Verified 09/30/18 20:16 [From Benadryl] Review of Systems ROS Statement: Those systems with pertinent positive or pertinent negative responses have been documented in the HPI. ROS Other: All systems not noted in ROS Statement are negative. 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 Past Anesthesia/Blood Transfusion Reactions: No Reported Reaction Additional Past Anesthesia/Blood Transfusion Reaction / Comment(s): . Past Psychological History: Anxiety, Bipolar, Depression, Panic Disorder, PTSD, Schizoaffective Disorder Smoking Status: Current every day smoker Past Alcohol Use History: None Reported Past Drug Use History: Marijuana - Past Family History Mother Family Medical History: No Reported History Father Family Medical History: No Reported History Additional Family Medical History / Comment(s): bipolar, sever seasonal allergies Brother(s) Family Medical History: No Reported History Sister(s) Family Medical History: No Reported History General Exam - General Exam Comments Initial Comments: General: The patient is awake and alert, in no distress, and does not appear acutely ill. Eye: +3 mm pupils are equal, round and reactive to light, extra-ocular movements are intact. No nystagmus. There is normal conjunctiva bilaterally. No signs of icterus. Ears, nose, mouth and throat: There are moist mucous membranes and no oral lesions. Neck: The neck is supple, there is no tenderness or JVD. Cardiovascular: There is a regular rate and rhythm. No murmur, rub or gallop is appreciated. Respiratory: Lungs are clear to auscultation, respirations are non-labored, breath sounds are equal. No wheezes, stridor, rales, or rhonchi. Gastrointestinal: Soft, non-distended, midlyy tender abdomen midline/superior bladder margin without masses or organomegaly noted. There is no rebound or guarding present. No CVA tenderness. Bowel sounds are unremarkable. Pelvic exam;. Vaginal close a pink well rugated. Cervix pink eyes closed. Mild discharge in vault. No odor. No cervical motion or adnexal tenderness. No chandelier sign Musculoskeletal: Normal ROM, no tenderness. Strength 5/5. Sensation intact. Pulses equal bilaterally 2+. Neurological: A&O x 3. CN II-XII intact, There are no obvious motor or sensory deficits. Coordination appears grossly intact. Speech is normal. Skin: Skin is warm and dry and no rashes or lesions are noted. Psychiatric: Cooperative, appropriate mood & affect, normal judgment. Limitations: no limitations Course Vital Signs 09/30/18 09/30/18 18:13 21:13 Temperature 98.2 F Pulse Rate 77 72 Respiratory 18 16 Rate Blood Pressure 111/57 120/79 O2 Sat by Pulse 97 99 Oximetry Medical Decision Making - Medical Decision Making Laboratory studies show mild leukocytosis. No chandelier adnexal tenderness or cervical motion tenderness on examination. Mild discharge. No odor. Patient treated prophylactically for gonorrhea and committed. Trichomonas negative. Patient states that she has previously tolerated ceftriaxone despite ALLERGY. She states sometimes she has a rash sometime she does not. Patient requesting ceftriaxone and azithromycin by name. Patient administered medication. Patient given Pepcid and Solu-Medrol to prevent ALLERGIC response. Patient aware of possible side effect of ceftriaxone with penicillin ALLERGY. Patient states she would like to continue and she is concerned for STD. At this time versus findings concerning for pelvic inflammatory disease. Patient be discharged with primary care follow-up. Discussed case with attending provider Dr. Mendoza who is agreeable with plan and discharge. Return parameters were discussed at length. Patient discharged in stable condition appearing well - Lab Data Result diagrams: 09/30/18 18:37 09/30/18 18:37 Lab Results 09/30/18 09/30/18 09/30/18 Range/Units 18:37 18:37 18:37 WBC 14.2 H (3.8-10.6) k/uL RBC 4.66 (3.80-5.40) m/uL Hgb 12.5 (11.4-16.0) gm/dL Hct 38.5 (34.0-46.0) % MCV 82.8 (80.0-100.0) fL MCH 26.8 (25.0-35.0) pg MCHC 32.3 (31.0-37.0) g/dL RDW 15.6 H (11.5-15.5) % Plt Count 251 (150-450) k/uL Neutrophils % 84 % Lymphocytes % 12 % Monocytes % 3 % Eosinophils % 0 % Basophils % 0 % Neutrophils # 11.9 H (1.3-7.7) k/uL Lymphocytes # 1.7 (1.0-4.8) k/uL Monocytes # 0.4 (0-1.0) k/uL Eosinophils # 0.1 (0-0.7) k/uL Basophils # 0.0 (0-0.2) k/uL Sodium 140 (137-145) mmol/L Potassium 4.3 (3.5-5.1) mmol/L Chloride 107 (98-107) mmol/L Carbon Dioxide 24 (22-30) mmol/L Anion Gap 9 mmol/L BUN 14 (7-17) mg/dL Creatinine 0.59 (0.52-1.04) mg/dL Est GFR (CKD-EPI)AfAm >90 (>60 ml/min/1.73 sqM) Est GFR (CKD-EPI)NonAf >90 (>60 ml/min/1.73 sqM) Glucose 151 H (74-99) mg/dL Calcium 9.4 (8.4-10.2) mg/dL Total Bilirubin 0.2 (0.2-1.3) mg/dL AST 23 (14-36) U/L ALT 41 (9-52) U/L Alkaline Phosphatase 104 (38-126) U/L Total Protein 6.9 (6.3-8.2) g/dL Albumin 4.1 (3.5-5.0) g/dL Amylase 33 (30-110) U/L Lipase 38 (23-300) U/L Urine Color Yellow Urine Appearance Cloudy H (Clear) Urine pH 6.0 (5.0-8.0) Ur Specific [place] 1.026 (1.001-1.035) Urine Protein Trace H (Negative) Urine Glucose (UA) Negative (Negative) Urine Ketones Trace H (Negative) Urine Blood Negative (Negative) Urine Nitrite Negative (Negative) Urine Bilirubin Negative (Negative) Urine Urobilinogen <2.0 (<2.0) mg/dL Ur Leukocyte Esterase Negative (Negative) Urine RBC 7 H (0-5) /hpf Urine WBC 2 (0-5) /hpf Ur Squamous Epith Cells 13 H (0-4) /hpf Urine Mucus Rare H (None) /hpf Urine HCG, Qual (Not Detectd) Trichomonas Ag (Rapid) (Negative) 09/30/18 09/30/18 09/30/18 Range/Units 18:37 18:43 20:35 WBC (3.8-10.6) k/uL RBC (3.80-5.40) m/uL Hgb (11.4-16.0) gm/dL Hct (34.0-46.0) % MCV (80.0-100.0) fL MCH (25.0-35.0) pg MCHC (31.0-37.0) g/dL RDW (11.5-15.5) % Plt Count (150-450) k/uL Neutrophils % % Lymphocytes % % Monocytes % % Eosinophils % % Basophils % % Neutrophils # (1.3-7.7) k/uL Lymphocytes # (1.0-4.8) k/uL Monocytes # (0-1.0) k/uL Eosinophils # (0-0.7) k/uL Basophils # (0-0.2) k/uL Sodium (137-145) mmol/L Potassium (3.5-5.1) mmol/L Chloride (98-107) mmol/L Carbon Dioxide (22-30) mmol/L Anion Gap mmol/L BUN (7-17) mg/dL Creatinine (0.52-1.04) mg/dL Est GFR (CKD-EPI)AfAm (>60 ml/min/1.73 sqM) Est GFR (CKD-EPI)NonAf (>60 ml/min/1.73 sqM) Glucose (74-99) mg/dL Calcium (8.4-10.2) mg/dL Total Bilirubin (0.2-1.3) mg/dL AST (14-36) U/L ALT (9-52) U/L Alkaline Phosphatase (38-126) U/L Total Protein (6.3-8.2) g/dL Albumin (3.5-5.0) g/dL Amylase (30-110) U/L Lipase 39 (23-300) U/L Urine Color Urine Appearance (Clear) Urine pH (5.0-8.0) Ur Specific [place] (1.001-1.035) Urine Protein (Negative) Urine Glucose (UA) (Negative) Urine Ketones (Negative) Urine Blood (Negative) Urine Nitrite (Negative) Urine Bilirubin (Negative) Urine Urobilinogen (<2.0) mg/dL Ur Leukocyte Esterase (Negative) Urine RBC (0-5) /hpf Urine WBC (0-5) /hpf Ur Squamous Epith Cells (0-4) /hpf Urine Mucus (None) /hpf Urine HCG, Qual Not Detected (Not Detectd) Trichomonas Ag (Rapid) Negative (Negative) Disposition Clinical Impression: Concern about STD in female without diagnosis, Vaginal discharge Disposition: HOME SELF-CARE Condition: Good Instructions (If sedation given, give patient instructions): Sexually Transmitted Diseases (ED), Vaginal Discharge (ED) Additional Instructions: Please use medication as discussed. Please follow-up with family doctor in the next 2 days of symptoms have not improved. Please return to emergency room if the symptoms increase or worsen or for any other concerns. Is patient prescribed a controlled substance at d/c from ED?: No Referrals: Lauren Denson MD [Primary Care Provider] - 1-2 days Time of Disposition: 21:10
[2018-09-30] MEDS ORDERED: FAMOTIDINE 20 MG/2 ML VIAL IV STA (20:38)
[2018-09-30] MEDS ORDERED: AZITHROMYCIN 500 MG TAB PO STA (20:39)
[2018-09-30] MEDS ORDERED: cefTRIAXone 250 MG VIAL IM STA (20:39)
[2018-09-30] MEDS ORDERED: methylPREDNISolone SOD SUCCI 125 MG/2 ML VIAL IV STA (20:39)
[2018-09-30 21:14] VITALS: BP 120/79; PULSE 72; RESP 16
[2018-10-02 13:43] LABS: N. gonorrhoeae,PCR Negative (Neg,Equiv); Neisseria Source Vagina
[2018-10-02 13:45] LABS: C. trachomatis,PCR Negative (Neg,Equiv); Chlamydia trachomatis Source Vagina
== END 2018-09-30 21:33 | disposition home or self-care (01) ==
LOC: EC 17:29
DX: N89.8 Other specified noninflammatory disorders of vagina (principal); R30.0 Dysuria; R10.30 Lower abdominal pain, unspecified; D72.829 Elevated white blood cell count, unspecified; L40.9 Psoriasis, unspecified; F25.9 Schizoaffective disorder, unspecified; F17.200 Nicotine dependence, unspecified, uncomplicated; Z32.02 Encounter for pregnancy test, result negative; Z86.19 Personal history of other infectious and parasitic diseases; Z79.52 Long term (current) use of systemic steroids; Z79.899 Other long term (current) drug therapy; Z88.0 Allergy status to penicillin; Z88.2 Allergy status to sulfonamides; Z88.8 Allergy status to other drugs, medicaments and biological substances
CPT/HCPCS: 36415; 80053; 82150; 83690; 85025; 81001; 81025; 87808; 87491; 87591; 99284; 96374; 96375; 96361; 96372; J2930; J0696

== ENCOUNTER → 2018-10-04 | Outpatient (CLI) | payer OTHER ==
--- NOTE | 2018-10-04 13:33 | US ---
EXAMINATION TYPE: US pelvic complete DATE OF EXAM: 10/04/2018 COMPARISON: CT, US dated 06/29/2018 CLINICAL HISTORY: Suprapubic pain R10.2. Bilateral pelvic pain x 1 week, PCOS per patient; G0 TECHNIQUE: Transabdominal (TA). Transabdominal sonographic images of the pelvis were acquired. Date of LMP: approximately 3 weeks ago EXAM MEASUREMENTS: Uterus: 9.0 x 3.8 x 2.4 cm Endometrial Stripe: 0.5 cm Right Ovary: 3.1 x 2.0 x 2.0 cm Left Ovary: 3.6 x 2.5 x 2.7 cm 1. Uterus: Anteverted 2. Endometrium: Within normal limits 3. Right Ovary: multiple small follicles throughout ovary 4. Left Ovary: multiple small follicles throughout ovary Spectral, color and waveform Doppler imaging shows vascular waveforms, color flow to both ovaries 5. Bilateral Adnexa: wnl 6. Posterior cul-de-sac: wnl IMPRESSION: No significant abnormalities evident
== END ==
LOC: RADUSWWP 11:56
PROVIDERS: ATTEND Family Medicine
DX: R10.2 Pelvic and perineal pain (principal)
CPT/HCPCS: 76856

== ENCOUNTER 2018-10-16 02:35 | Emergency (ER) | payer OTHER ==
[2018-10-16 02:41] VITALS: TEMP 98.6
[2018-10-16] MEDS ORDERED: SODIUM CHLORIDE 0.9% 1,000 ML IV STA (02:50)
[2018-10-16] MEDS ORDERED: MORPHINE SULFATE 4 MG/ML SYRINGE IV STA (02:50)
[2018-10-16 03:03] LABS: Appearance,Urine Clear (Clear); Bilirubin,Urine Negative (Negative); Blood,Urine Negative (Negative); Color,Urine Light Yellow; Glucose,Urine (UA) Negative (Negative); Ketones,Urine Negative (Negative); Leukocyte Esterase,Urine Negative (Negative); Nitrite,Urine Negative (Negative); PH, Urine 5.5 (5.0-8.0); Protein,Urine Negative (Negative); Specific Gravity,Urine 1.005 (1.001-1.035); Urobilinogen,Urine <2.0 mg/dL (<2.0)
[2018-10-16 03:08] LABS: Basophils % (A) 0 %; Eosinophils # (A) 0.2 k/uL (0-0.7); Eosinophils % (A) 2 %; HCT 36.7 % (34.0-46.0); HGB 12.1 gm/dL (11.4-16.0); Lymphocytes # (A) 3.4 k/uL (1.0-4.8); Lymphocytes % (A) 31 %; MCH 27.2 pg (25.0-35.0); MCHC 32.9 g/dL (31.0-37.0); MCV 82.7 fL (80.0-100.0); Mean Platelet Volume 8.9; Monocytes # (A) 0.5 k/uL (0-1.0); Monocytes % (A) 5 %; Neutrophils # (A) 6.7 k/uL (1.3-7.7); Neutrophils % (A) 61 %; Platelet Count 240 k/uL (150-450); RBC 4.43 m/uL (3.80-5.40); RDW 15.6 % (11.5-15.5); WBC 11.1 k/uL (3.8-10.6)
--- NOTE | 2018-10-16 03:08 | ED ---
Abdominal Pain HPI - General Chief Complaint: Abdominal Pain Stated Complaint: Abd Pain Time Seen by Provider: 10/16/18 02:50 Source: patient Mode of arrival: ambulatory Limitations: no limitations - History of Present Illness Initial Comments: There is a 23-year-old female with history of chronic abdominal pain for which she has undergone extensive inpatient and outpatient testing. Patient recently and had a HIDA scan and endoscopy. Patient is scheduled to follow-up with general surgery next week. Patient reports that for the past 2 days she's been experiencing an exacerbation of her right upper quadrant abdominal pain. She reports that she ate salad with great dressing for dinner and her right upper quadrant abdominal pain became worse. Patient denies any associated fevers, chills, nausea, vomiting chest pain or shortness of breath. Patient reports that this pain is identical to her previous episodes of abdominal pain. - Related Data Home Medications Medication Instructions Recorded Confirmed Vlngudrx-Ldkyydpgp-Gd Otic 4 drops BOTH EARS TID 09/30/18 09/30/18 [Cortisporin Otic Soln] Paliperidone IM [Invega Sustenna] 234 mg IM Q28D 09/30/18 09/30/18 Promethazine/Dextromethorphan 5 ml PO Q6H 09/30/18 09/30/18 [Promethazine-Dm Syrup] predniSONE 40 mg PO DAILY 09/30/18 09/30/18 Allergies Allergy/AdvReac Type Severity Reaction Status Date / Time Penicillins Allergy Severe Anaphylaxis Verified 10/16/18 02:41 Sulfa (Sulfonamide Allergy Severe Anaphylaxis Verified 10/16/18 02:41 Antibiotics) diphenhydramine HCl Allergy Nausea Verified 10/16/18 02:41 [From Benadryl] Review of Systems ROS Statement: Those systems with pertinent positive or pertinent negative responses have been documented in the HPI. ROS Other: All systems not noted in ROS Statement are negative. 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 Past Psychological History: Anxiety, Bipolar, Depression, Panic Disorder, PTSD, Schizoaffective Disorder Smoking Status: Current every day smoker Past Alcohol Use History: None Reported Past Drug Use History: Marijuana - Past Family History Mother Family Medical History: No Reported History Father Family Medical History: No Reported History Additional Family Medical History / Comment(s): bipolar, sever seasonal allergies Brother(s) Family Medical History: No Reported History Sister(s) Family Medical History: No Reported History General Exam - General Exam Comments Initial Comments: Physical Exam GENERAL: Patient is well-developed and well-nourished. Patient is nontoxic and well- hydrated and is in no distress. HENT: Normocephalic, Atraumatic. EYES: PERRL, EOMI PULMONARY: Unlabored respirations. No audible rales rhonchi or wheezing was noted. CARDIOVASCULAR: There is a regular rate and rhythm without any murmurs gallops or rubs. ABDOMEN: Soft and nontender with normal bowel sounds. Negative Burr sign SKIN: Skin is clear with no lesions or rashes and otherwise unremarkable. : Deferred NEUROLOGIC: Patient is alert and oriented x3. Moving all extremities spontaneously MUSCULOSKELETAL: Normal extremities with adequate strength and full range of motion. No lower extremity swelling or edema. No calf tenderness. PSYCHIATRIC: Cognitive delay, no suicidal homicidal ideation Normal psychiatric evaluation. Limitations: no limitations Limitations: no limitations Course Vital Signs 10/16/18 10/16/18 02:39 04:41 Temperature 98.6 F Pulse Rate 104 H 81 Respiratory 18 16 Rate Blood Pressure 115/63 109/66 O2 Sat by Pulse 99 Oximetry Medical Decision Making - Medical Decision Making The patient was seen and evaluated, history is obtained from the patient and review of medical record This is a 23-year-old females chronic right upper quadrant abdominal pain she has undergone CT scanning ultrasound and HIDA scan endoscopy and outpatient evaluation by gastroenterology she scheduled to see surgery. Her labs today are unremarkable white count 11.1 which is down from her previous evaluation. Results were discussed with the patient she was advised to maintain dietary restrictions and follow up with surgery as scheduled. Patient will be given one oral Tylenol 3 prior to discharge. - Lab Data Result diagrams: 10/16/18 03:00 10/16/18 03:00 Lab Results 10/16/18 10/16/18 10/16/18 Range/Units 02:42 02:42 03:00 WBC (3.8-10.6) k/uL RBC (3.80-5.40) m/uL Hgb (11.4-16.0) gm/dL Hct (34.0-46.0) % MCV (80.0-100.0) fL MCH (25.0-35.0) pg MCHC (31.0-37.0) g/dL RDW (11.5-15.5) % Plt Count (150-450) k/uL Neutrophils % % Lymphocytes % % Monocytes % % Eosinophils % % Basophils % % Neutrophils # (1.3-7.7) k/uL Lymphocytes # (1.0-4.8) k/uL Monocytes # (0-1.0) k/uL Eosinophils # (0-0.7) k/uL Basophils # (0-0.2) k/uL Sodium 140 (137-145) mmol/L Potassium 4.1 (3.5-5.1) mmol/L Chloride 110 H (98-107) mmol/L Carbon Dioxide 21 L (22-30) mmol/L Anion Gap 9 mmol/L BUN 10 (7-17) mg/dL Creatinine 0.81 (0.52-1.04) mg/dL Est GFR (CKD-EPI)AfAm >90 (>60 ml/min/1.73 sqM) Est GFR (CKD-EPI)NonAf >90 (>60 ml/min/1.73 sqM) Glucose 75 (74-99) mg/dL Calcium 9.0 (8.4-10.2) mg/dL Total Bilirubin 0.2 (0.2-1.3) mg/dL AST 20 (14-36) U/L ALT 38 (9-52) U/L Alkaline Phosphatase 90 (38-126) U/L Total Protein 6.3 (6.3-8.2) g/dL Albumin 3.7 (3.5-5.0) g/dL Amylase 39 (30-110) U/L Lipase 54 (23-300) U/L Urine Color Light Yellow Urine Appearance Clear (Clear) Urine pH 5.5 (5.0-8.0) Ur Specific [place] 1.005 (1.001-1.035) Urine Protein Negative (Negative) Urine Glucose (UA) Negative (Negative) Urine Ketones Negative (Negative) Urine Blood Negative (Negative) Urine Nitrite Negative (Negative) Urine Bilirubin Negative (Negative) Urine Urobilinogen <2.0 (<2.0) mg/dL Ur Leukocyte Esterase Negative (Negative) Urine HCG, Qual Not Detected (Not Detectd) 10/16/18 Range/Units 03:00 WBC 11.1 H (3.8-10.6) k/uL RBC 4.43 (3.80-5.40) m/uL Hgb 12.1 (11.4-16.0) gm/dL Hct 36.7 (34.0-46.0) % MCV 82.7 (80.0-100.0) fL MCH 27.2 (25.0-35.0) pg MCHC 32.9 (31.0-37.0) g/dL RDW 15.6 H (11.5-15.5) % Plt Count 240 (150-450) k/uL Neutrophils % 61 % Lymphocytes % 31 % Monocytes % 5 % Eosinophils % 2 % Basophils % 0 % Neutrophils # 6.7 (1.3-7.7) k/uL Lymphocytes # 3.4 (1.0-4.8) k/uL Monocytes # 0.5 (0-1.0) k/uL Eosinophils # 0.2 (0-0.7) k/uL Basophils # 0.0 (0-0.2) k/uL Sodium (137-145) mmol/L Potassium (3.5-5.1) mmol/L Chloride (98-107) mmol/L Carbon Dioxide (22-30) mmol/L Anion Gap mmol/L BUN (7-17) mg/dL Creatinine (0.52-1.04) mg/dL Est GFR (CKD-EPI)AfAm (>60 ml/min/1.73 sqM) Est GFR (CKD-EPI)NonAf (>60 ml/min/1.73 sqM) Glucose (74-99) mg/dL Calcium (8.4-10.2) mg/dL Total Bilirubin (0.2-1.3) mg/dL AST (14-36) U/L ALT (9-52) U/L Alkaline Phosphatase (38-126) U/L Total Protein (6.3-8.2) g/dL Albumin (3.5-5.0) g/dL Amylase (30-110) U/L Lipase (23-300) U/L Urine Color Urine Appearance (Clear) Urine pH (5.0-8.0) Ur Specific [place] (1.001-1.035) Urine Protein (Negative) Urine Glucose (UA) (Negative) Urine Ketones (Negative) Urine Blood (Negative) Urine Nitrite (Negative) Urine Bilirubin (Negative) Urine Urobilinogen (<2.0) mg/dL Ur Leukocyte Esterase (Negative) Urine HCG, Qual (Not Detectd) Disposition Clinical Impression: Abdominal pain, Chronic abdominal pain Disposition: HOME SELF-CARE Instructions (If sedation given, give patient instructions): Abdominal Pain (ED) Is patient prescribed a controlled substance at d/c from ED?: No Referrals: Lauren Denson MD [Primary Care Provider] - 1-2 days
[2018-10-16 03:19] LABS: ALT 38 U/L (9-52); AST 20 U/L (14-36); Albumin 3.7 g/dL (3.5-5.0); Alkaline Phosphatase 90 U/L (38-126); Amylase 39 U/L (30-110); Anion Gap 9 mmol/L; Blood Urea Nitrogen 10 mg/dL (7-17); Carbon Dioxide 21 mmol/L (22-30); Chloride 110 mmol/L (98-107); Glucose 75 mg/dL (74-99); Lipase 54 U/L (23-300); Potassium 4.1 mmol/L (3.5-5.1); Sodium 140 mmol/L (137-145); Total Bilirubin 0.2 mg/dL (0.2-1.3); Total Protein 6.3 g/dL (6.3-8.2)
--- NOTE | 2018-10-16 03:23 | XR ---
EXAM: XR Abdomen, 1 View CLINICAL HISTORY: ITS.REASON XR Reason: abdominal pain TECHNIQUE: Frontal supine view of the abdomen/pelvis. COMPARISON: 08/23/18 abdominal x-ray FINDINGS: Gastrointestinal tract: Unremarkable. No dilation. Bones/joints: No acute fracture. No dislocation. IMPRESSION: Unremarkable abdominal x-ray.
[2018-10-16] MEDS ORDERED: Acetaminophen-Codeine 300-30mg TAB PO STA (04:42)
[2018-10-16 04:46] VITALS: BP 109/66; PULSE 81; RESP 16
== END 2018-10-16 04:57 | disposition home or self-care (01) ==
LOC: EC 02:35
DX: R10.11 Right upper quadrant pain (principal); G89.29 Other chronic pain; Z32.02 Encounter for pregnancy test, result negative; J45.909 Unspecified asthma, uncomplicated; F17.200 Nicotine dependence, unspecified, uncomplicated; Z79.899 Other long term (current) drug therapy; Z88.0 Allergy status to penicillin; Z88.2 Allergy status to sulfonamides; Z88.8 Allergy status to other drugs, medicaments and biological substances
CPT/HCPCS: 36415; 80053; 82150; 83690; 85025; 81003; 81025; 74018; 99284; 96374; 96361 ×2; J2270

== ENCOUNTER 2018-10-25 08:09 | Emergency (ER) | payer OTHER ==
[2018-10-25 08:13] VITALS: BP 112/61; PULSE 88; RESP 18; TEMP 99.2
[2018-10-25] MEDS ORDERED: ONDANSETRON 4 MG/2 ML VIAL IVP STA (08:18)
[2018-10-25] MEDS ORDERED: SODIUM CHLORIDE 0.9% 1,000 ML IV ONE (08:31)
--- NOTE | 2018-10-25 08:33 | ED ---
Nausea/Vomiting/Diarrhea HPI - General Chief complaint: Nausea/Vomiting/Diarrhea Stated complaint: Vomiting Time Seen by Provider: 10/25/18 08:13 Source: patient, EMS, RN notes reviewed Mode of arrival: EMS Limitations: no limitations - History of Present Illness Initial comments: 23-year-old female presents emergency Department with chief complaint of ongoing abdominal discomfort. Patient has been seen in emergency department in by PCP. Patient had complete workup. Patient states that she was vomits morning which prompted her to come emergency department. Patient denies any fever or chills. Patient states she does have some abdominal cramping she does have diarrhea that she was prescribed MiraLAX by her PCP a few days ago. Patient denies any melena hematochezia. She has no dysuria no hematuria. Patient denies any chest pain or shortness of breath no other prior abdominal surgeries. Patient's had prior EGD which showed some gastritis. - Related Data Home Medications Medication Instructions Recorded Confirmed Acetaminophen [Tylenol] 500 mg PO Q4H PRN 10/25/18 10/25/18 Cetirizine HCl [Zyrtec] 10 mg PO DAILY 10/25/18 10/25/18 Ergocalciferol [Vitamin D2] 50,000 unit PO Q7D 10/25/18 10/25/18 Omeprazole [PriLOSEC] 20 mg PO DAILY 10/25/18 10/25/18 Ondansetron HCl [Zofran] 8 mg PO Q6HR PRN 10/25/18 10/25/18 Paliperidone IM [Invega Sustenna] 234 mg IM Q28D 10/25/18 10/25/18 Vitamin C Gummies 125 Mg 125 mg PO DAILY 10/25/18 10/25/18 busPIRone HCl [Buspar] 10 mg PO HS 10/25/18 10/25/18 hydrALAZINE HCL 100 mg PO HS 10/25/18 10/25/18 Previous Rx's Medication Instructions Recorded Ondansetron Odt [Zofran Odt] 4 mg PO Q8HR PRN #10 tab 10/25/18 Allergies Allergy/AdvReac Type Severity Reaction Status Date / Time Penicillins Allergy Severe Anaphylaxis Verified 10/25/18 08:23 Sulfa (Sulfonamide Allergy Severe Anaphylaxis Verified 10/25/18 08:23 Antibiotics) diphenhydramine HCl Allergy Nausea Verified 10/25/18 08:23 [From Benadryl] Review of Systems ROS Statement: Those systems with pertinent positive or pertinent negative responses have been documented in the HPI. ROS Other: All systems not noted in ROS Statement are negative. 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 Past Psychological History: Anxiety, Bipolar, Depression, Panic Disorder, PTSD, Schizoaffective Disorder Smoking Status: Current every day smoker Past Alcohol Use History: None Reported Past Drug Use History: Marijuana - Past Family History Mother Family Medical History: No Reported History Father Family Medical History: No Reported History Additional Family Medical History / Comment(s): bipolar, sever seasonal allergies Brother(s) Family Medical History: No Reported History Sister(s) Family Medical History: No Reported History General Exam Limitations: no limitations General appearance: alert, in no apparent distress Head exam: Present: atraumatic, normocephalic, normal inspection Eye exam: Present: normal appearance, PERRL, EOMI. Absent: scleral icterus, conjunctival injection, periorbital swelling ENT exam: Present: normal exam, normal oropharynx, mucous membranes moist Neck exam: Present: normal inspection, full ROM. Absent: tenderness, meningismus, lymphadenopathy Respiratory exam: Present: normal lung sounds bilaterally. Absent: respiratory distress, wheezes, rales, rhonchi, stridor Cardiovascular Exam: Present: regular rate, normal rhythm, normal heart sounds. Absent: systolic murmur, diastolic murmur, rubs, gallop, clicks GI/Abdominal exam: Present: soft, tenderness (Minimal diffuse), normal bowel sounds. Absent: distended, guarding, rebound, rigid Back exam: Absent: CVA tenderness (R), CVA tenderness (L) Neurological exam: Present: alert Skin exam: Present: warm, dry, intact, normal color. Absent: rash Course Vital Signs 10/25/18 08:11 Temperature 99.2 F Pulse Rate 88 Respiratory 18 Rate Blood Pressure 112/61 O2 Sat by Pulse 99 Oximetry Medical Decision Making - Medical Decision Making 23-year-old female presents for vomiting abdominal scar. This has been on going abdominal pain. Patient had several workups which are negative. Patient abdomen is soft and essentially nontender. Patient will follow-up with Dr. Coburn as she's had a prior EGD by him. Patient has an outpatient CAT scan ordered by PCP and return parameters were discussed. - Lab Data Result diagrams: 10/25/18 08:30 10/25/18 08:30 Lab Results 10/25/18 10/25/18 10/25/18 Range/Units 08:30 08:30 08:30 WBC 9.6 (3.8-10.6) k/uL RBC 4.49 (3.80-5.40) m/uL Hgb 12.1 (11.4-16.0) gm/dL Hct 35.7 (34.0-46.0) % MCV 79.5 L (80.0-100.0) fL MCH 26.9 (25.0-35.0) pg MCHC 33.8 (31.0-37.0) g/dL RDW 15.6 H (11.5-15.5) % Plt Count 286 (150-450) k/uL Neutrophils % 69 % Lymphocytes % 24 % Monocytes % 4 % Eosinophils % 2 % Basophils % 0 % Neutrophils # 6.6 (1.3-7.7) k/uL Lymphocytes # 2.3 (1.0-4.8) k/uL Monocytes # 0.4 (0-1.0) k/uL Eosinophils # 0.2 (0-0.7) k/uL Basophils # 0.0 (0-0.2) k/uL Sodium 139 (137-145) mmol/L Potassium 4.0 (3.5-5.1) mmol/L Chloride 110 H (98-107) mmol/L Carbon Dioxide 22 (22-30) mmol/L Anion Gap 7 mmol/L BUN 13 (7-17) mg/dL Creatinine 0.75 (0.52-1.04) mg/dL Est GFR (CKD-EPI)AfAm >90 (>60 ml/min/1.73 sqM) Est GFR (CKD-EPI)NonAf >90 (>60 ml/min/1.73 sqM) Glucose 98 (74-99) mg/dL Calcium 8.5 (8.4-10.2) mg/dL Total Bilirubin 0.3 (0.2-1.3) mg/dL AST 23 (14-36) U/L ALT 34 (9-52) U/L Alkaline Phosphatase 89 (38-126) U/L Total Protein 6.6 (6.3-8.2) g/dL Albumin 3.8 (3.5-5.0) g/dL Lipase 66 (23-300) U/L Urine Color Urine Appearance (Clear) Urine pH (5.0-8.0) Ur Specific [place] (1.001-1.035) Urine Protein (Negative) Urine Glucose (UA) (Negative) Urine Ketones (Negative) Urine Blood (Negative) Urine Nitrite (Negative) Urine Bilirubin (Negative) Urine Urobilinogen (<2.0) mg/dL Ur Leukocyte Esterase (Negative) Urine RBC (0-5) /hpf Urine WBC (0-5) /hpf Ur Squamous Epith Cells (0-4) /hpf Urine Bacteria (None) /hpf Urine Mucus (None) /hpf Urine HCG, Qual Not Detected (Not Detectd) 10/25/18 Range/Units 08:30 WBC (3.8-10.6) k/uL RBC (3.80-5.40) m/uL Hgb (11.4-16.0) gm/dL Hct (34.0-46.0) % MCV (80.0-100.0) fL MCH (25.0-35.0) pg MCHC (31.0-37.0) g/dL RDW (11.5-15.5) % Plt Count (150-450) k/uL Neutrophils % % Lymphocytes % % Monocytes % % Eosinophils % % Basophils % % Neutrophils # (1.3-7.7) k/uL Lymphocytes # (1.0-4.8) k/uL Monocytes # (0-1.0) k/uL Eosinophils # (0-0.7) k/uL Basophils # (0-0.2) k/uL Sodium (137-145) mmol/L Potassium (3.5-5.1) mmol/L Chloride (98-107) mmol/L Carbon Dioxide (22-30) mmol/L Anion Gap mmol/L BUN (7-17) mg/dL Creatinine (0.52-1.04) mg/dL Est GFR (CKD-EPI)AfAm (>60 ml/min/1.73 sqM) Est GFR (CKD-EPI)NonAf (>60 ml/min/1.73 sqM) Glucose (74-99) mg/dL Calcium (8.4-10.2) mg/dL Total Bilirubin (0.2-1.3) mg/dL AST (14-36) U/L ALT (9-52) U/L Alkaline Phosphatase (38-126) U/L Total Protein (6.3-8.2) g/dL Albumin (3.5-5.0) g/dL Lipase (23-300) U/L Urine Color Yellow Urine Appearance Clear (Clear) Urine pH 6.0 (5.0-8.0) Ur Specific [place] 1.028 (1.001-1.035) Urine Protein Trace H (Negative) Urine Glucose (UA) Negative (Negative) Urine Ketones Negative (Negative) Urine Blood Negative (Negative) Urine Nitrite Negative (Negative) Urine Bilirubin Negative (Negative) Urine Urobilinogen <2.0 (<2.0) mg/dL Ur Leukocyte Esterase Trace H (Negative) Urine RBC 1 (0-5) /hpf Urine WBC 2 (0-5) /hpf Ur Squamous Epith Cells 3 (0-4) /hpf Urine Bacteria Rare H (None) /hpf Urine Mucus Rare H (None) /hpf Urine HCG, Qual (Not Detectd) Disposition Clinical Impression: Chronic abdominal pain, Vomiting Disposition: HOME SELF-CARE Condition: Stable Instructions (If sedation given, give patient instructions): Abdominal Pain (ED) Additional Instructions: Please return to the Emergency Department if symptoms worsen or any other concerns. Prescriptions: Ondansetron Odt [Zofran Odt] 4 mg PO Q8HR PRN #10 tab PRN Reason: Nausea Is patient prescribed a controlled substance at d/c from ED?: No Referrals: Lauren Denson MD [Primary Care Provider] - 1-2 days Dennis Coburn MD [STAFF PHYSICIAN] - 1-2 days Time of Disposition: 09:05
[2018-10-25 08:48] LABS: Basophils % (A) 0 %; Eosinophils # (A) 0.2 k/uL (0-0.7); Eosinophils % (A) 2 %; HCT 35.7 % (34.0-46.0); HGB 12.1 gm/dL (11.4-16.0); Lymphocytes # (A) 2.3 k/uL (1.0-4.8); Lymphocytes % (A) 24 %; MCH 26.9 pg (25.0-35.0); MCHC 33.8 g/dL (31.0-37.0); MCV 79.5 fL (80.0-100.0); Mean Platelet Volume 9.5; Monocytes # (A) 0.4 k/uL (0-1.0); Monocytes % (A) 4 %; Neutrophils # (A) 6.6 k/uL (1.3-7.7); Neutrophils % (A) 69 %; Platelet Count 286 k/uL (150-450); RBC 4.49 m/uL (3.80-5.40); RDW 15.6 % (11.5-15.5); WBC 9.6 k/uL (3.8-10.6)
[2018-10-25 08:51] LABS: Appearance,Urine Clear (Clear); Bacteria,Urine Rare /hpf; Bilirubin,Urine Negative (Negative); Blood,Urine Negative (Negative); Color,Urine Yellow; Glucose,Urine (UA) Negative (Negative); Ketones,Urine Negative (Negative); Leukocyte Esterase,Urine Trace (Negative); Mucus,Urine Rare /hpf; Nitrite,Urine Negative (Negative); Protein,Urine Trace (Negative); RBC,Urine 1 /hpf (0-5); Specific Gravity,Urine 1.028 (1.001-1.035); Squamous Epithelial Cell,Urine 3 /hpf (0-4); Urobilinogen,Urine <2.0 mg/dL (<2.0)
[2018-10-25 09:00] LABS: ALT 34 U/L (9-52); AST 23 U/L (14-36); Albumin 3.8 g/dL (3.5-5.0); Alkaline Phosphatase 89 U/L (38-126); Anion Gap 7 mmol/L; Blood Urea Nitrogen 13 mg/dL (7-17); Calcium 8.5 mg/dL (8.4-10.2); Carbon Dioxide 22 mmol/L (22-30); Chloride 110 mmol/L (98-107); Glucose 98 mg/dL (74-99); Lipase 66 U/L (23-300); Sodium 139 mmol/L (137-145); Total Bilirubin 0.3 mg/dL (0.2-1.3); Total Protein 6.6 g/dL (6.3-8.2)
== END 2018-10-25 09:21 | disposition home or self-care (01) ==
LOC: EC 08:09
DX: R10.84 Generalized abdominal pain (principal); G89.29 Other chronic pain; R11.10 Vomiting, unspecified; R19.7 Diarrhea, unspecified; K21.9 Gastro-esophageal reflux disease without esophagitis; F31.9 Bipolar disorder, unspecified; F25.9 Schizoaffective disorder, unspecified; F41.0 Panic disorder [episodic paroxysmal anxiety]; F43.10 Post-traumatic stress disorder, unspecified; F17.200 Nicotine dependence, unspecified, uncomplicated; Z79.899 Other long term (current) drug therapy; Z88.0 Allergy status to penicillin; Z88.2 Allergy status to sulfonamides; Z88.8 Allergy status to other drugs, medicaments and biological substances
CPT/HCPCS: 36415; 80053; 83690; 85025; 81001; 81025; 99284; 96374; 96361; J2405

== ENCOUNTER 2018-10-26 05:21 | Emergency (ER) | payer OTHER ==
[2018-10-26 05:29] VITALS: RESP 18
[2018-10-26] MEDS ORDERED: MAG HYDROX/AL HYDROX/SIMETH 30 ML, HYOSCYAMINE ELIXIR 10 ML, CIMETIDINE HCL 300 MG, LID... PO STA ×4 (05:38)
--- NOTE | 2018-10-26 05:39 | ED ---
Nausea/Vomiting/Diarrhea HPI - General Chief complaint: Nausea/Vomiting/Diarrhea Stated complaint: Possible GI Bleed Time Seen by Provider: 10/26/18 05:37 Source: patient Mode of arrival: ambulatory Limitations: no limitations - History of Present Illness Initial comments: Keerthi is a 23yo female who presents to the ER for evaluation of chronic abdominal pain, nausea, vomiting and diarrhea. Patient has been expressing chronic abdominal pain for a number of months she has been seen and evaluated in our emergency department multiple times, she has had very thorough inpatient and outpatient workups including ultrasound, HIDA scan, EGD and repeated labs. She was most recently seen and evaluated yesterday. Patient reports that for the past 3 days she has been having nausea, vomiting with dark blood in her vomit and after having multiple bowel movements overnight she noticed bright red blood when wiping thismorning so she came to the ER for dilation. Of note the patient was seen and evaluated in our emergency department yesterday morning at which time she did report abdominal pain nausea and vomiting but denied any hematemesis or hematochezia. However, today reports that the symptoms of the present for 3 days. Patient states that she has contacted her surgeon who performed her previous EGD and was advised that if she had any further abdominal pain she needed a computed tomography scan she is scheduled to see the surgeon on Sunday for reevaluation of her chronic abdominal pain. - Related Data Home Medications Medication Instructions Recorded Confirmed Acetaminophen [Tylenol] 500 mg PO Q4H PRN 10/25/18 10/26/18 Cetirizine HCl [Zyrtec] 10 mg PO DAILY 10/25/18 10/26/18 Ergocalciferol [Vitamin D2] 50,000 unit PO Q7D 10/25/18 10/26/18 Omeprazole [PriLOSEC] 20 mg PO DAILY 10/25/18 10/26/18 Ondansetron HCl [Zofran] 8 mg PO Q6HR PRN 10/25/18 10/26/18 Paliperidone IM [Invega Sustenna] 234 mg IM Q28D 10/25/18 10/26/18 Vitamin C Gummies 125 Mg 125 mg PO DAILY 10/25/18 10/26/18 busPIRone HCl [Buspar] 10 mg PO HS 10/25/18 10/26/18 hydrALAZINE HCL 100 mg PO HS 10/25/18 10/26/18 Previous Rx's Medication Instructions Recorded Ondansetron Odt [Zofran Odt] 4 mg PO Q8HR PRN #10 tab 10/25/18 Allergies Allergy/AdvReac Type Severity Reaction Status Date / Time Penicillins Allergy Severe Anaphylaxis Verified 10/25/18 08:23 Sulfa (Sulfonamide Allergy Severe Anaphylaxis Verified 10/25/18 08:23 Antibiotics) diphenhydramine HCl Allergy Nausea Verified 10/25/18 08:23 [From Benadryl] Review of Systems ROS Statement: Those systems with pertinent positive or pertinent negative responses have been documented in the HPI. ROS Other: All systems not noted in ROS Statement are negative. 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 Past Psychological History: Anxiety, Bipolar, Depression, Panic Disorder, PTSD, Schizoaffective Disorder Smoking Status: Current every day smoker Past Alcohol Use History: None Reported Past Drug Use History: Marijuana - Past Family History Mother Family Medical History: No Reported History Father Family Medical History: No Reported History Additional Family Medical History / Comment(s): bipolar, sever seasonal allergies Brother(s) Family Medical History: No Reported History Sister(s) Family Medical History: No Reported History General Exam - General Exam Comments Initial Comments: Physical Exam GENERAL: Patient is well-developed and well-nourished. Patient is nontoxic and well- hydrated and is in no distress. HENT: Normocephalic, Atraumatic. EYES: PERRL, EOMI PULMONARY: Unlabored respirations. No audible rales rhonchi or wheezing was noted. CARDIOVASCULAR: There is a regular rate and rhythm without any murmurs gallops or rubs. ABDOMEN: Soft and nontender with normal bowel sounds. SKIN: Skin is clear with no lesions or rashes and otherwise unremarkable. : Deferred NEUROLOGIC: Patient is alert and oriented x3. Moving all extremities spontaneously MUSCULOSKELETAL: Normal extremities with adequate strength and full range of motion. No lower extremity swelling or edema. No calf tenderness. PSYCHIATRIC: Child Like demeanor Limitations: no limitations Limitations: no limitations Course Vital Signs 10/26/18 10/26/18 05:25 07:32 Temperature 98.3 F 98.2 F Pulse Rate 86 77 Respiratory 18 18 Rate Blood Pressure 108/76 103/80 O2 Sat by Pulse 98 98 Oximetry Medical Decision Making - Medical Decision Making Patient was seen and evaluated history was obtained from patient and signed physical exam does reveal internal hemorrhoids with some bright red blood, there is no melena noted Physical exam otherwise unremarkable Labs obtained No significant change from baseline Patient care was discussed with patient's surgeon Dr. Campo doesn't believe he has seen her evaluated this patient recently but states that if she is having chronic abdominal pain and is scheduled to follow-up he would like a CT of 1 has not been done recently. There is no CT performed in [address] was ordered. [place] CT resulted with no acute findings there was concern for ileus however considering the patient is having diarrhea I suspect that the possibility of s tool in her colon is more likely related to diarrheal state. At this time I feel the patient stable for discharge home and follow-up with her surgeon as scheduled. - Lab Data Result diagrams: 10/26/18 06:13 10/26/18 06:13 Lab Results 10/26/18 10/26/18 10/26/18 Range/Units 06:13 06:13 06:34 WBC 8.0 (3.8-10.6) k/uL RBC 4.48 (3.80-5.40) m/uL Hgb 11.9 (11.4-16.0) gm/dL Hct 35.3 (34.0-46.0) % MCV 78.9 L (80.0-100.0) fL MCH 26.5 (25.0-35.0) pg MCHC 33.5 (31.0-37.0) g/dL RDW 16.3 H (11.5-15.5) % Plt Count 273 (150-450) k/uL Neutrophils % 60 % Lymphocytes % 31 % Monocytes % 6 % Eosinophils % 2 % Basophils % 0 % Neutrophils # 4.8 (1.3-7.7) k/uL Lymphocytes # 2.4 (1.0-4.8) k/uL Monocytes # 0.4 (0-1.0) k/uL Eosinophils # 0.2 (0-0.7) k/uL Basophils # 0.0 (0-0.2) k/uL Anisocytosis Slight Sodium 138 (137-145) mmol/L Potassium 4.5 (3.5-5.1) mmol/L Chloride 110 H (98-107) mmol/L Carbon Dioxide 18 L (22-30) mmol/L Anion Gap 10 mmol/L BUN 7 (7-17) mg/dL Creatinine 0.64 (0.52-1.04) mg/dL Est GFR (CKD-EPI)AfAm >90 (>60 ml/min/1.73 sqM) Est GFR (CKD-EPI)NonAf >90 (>60 ml/min/1.73 sqM) Glucose 84 (74-99) mg/dL Calcium 9.0 (8.4-10.2) mg/dL Total Bilirubin 0.3 (0.2-1.3) mg/dL AST 25 (14-36) U/L ALT 31 (9-52) U/L Alkaline Phosphatase 81 (38-126) U/L Total Protein 6.3 (6.3-8.2) g/dL Albumin 3.6 (3.5-5.0) g/dL Stool Occult Blood Negative (Negative) Disposition Clinical Impression: Chronic abdominal pain, Internal hemorrhoid, bleeding Disposition: HOME SELF-CARE Condition: Stable Instructions (If sedation given, give patient instructions): Abdominal Pain (ED) Is patient prescribed a controlled substance at d/c from ED?: No Referrals: Lauren Denson MD [Primary Care Provider] - 1-2 days Dennis Coburn MD [STAFF PHYSICIAN] - 1-2 days Time of Disposition: 07:20
[2018-10-26 06:51] LABS: Anisocytosis Slight; Basophils % (A) 0 %; Eosinophils # (A) 0.2 k/uL (0-0.7); Eosinophils % (A) 2 %; HCT 35.3 % (34.0-46.0); HGB 11.9 gm/dL (11.4-16.0); Lymphocytes # (A) 2.4 k/uL (1.0-4.8); Lymphocytes % (A) 31 %; MCH 26.5 pg (25.0-35.0); MCHC 33.5 g/dL (31.0-37.0); MCV 78.9 fL (80.0-100.0); Mean Platelet Volume 10.5; Monocytes # (A) 0.4 k/uL (0-1.0); Monocytes % (A) 6 %; Neutrophils # (A) 4.8 k/uL (1.3-7.7); Neutrophils % (A) 60 %; Platelet Count 273 k/uL (150-450); RBC 4.48 m/uL (3.80-5.40); RDW 16.3 % (11.5-15.5)
[2018-10-26 07:10] LABS: ALT 31 U/L (9-52); AST 25 U/L (14-36); Albumin 3.6 g/dL (3.5-5.0); Alkaline Phosphatase 81 U/L (38-126); Anion Gap 10 mmol/L; Blood Urea Nitrogen 7 mg/dL (7-17); Carbon Dioxide 18 mmol/L (22-30); Chloride 110 mmol/L (98-107); Glucose 84 mg/dL (74-99); Potassium 4.5 mmol/L (3.5-5.1); Sodium 138 mmol/L (137-145); Total Bilirubin 0.3 mg/dL (0.2-1.3); Total Protein 6.3 g/dL (6.3-8.2)
--- NOTE | 2018-10-26 07:16 | CT ---
EXAM: CT Abdomen and Pelvis With Intravenous Contrast CLINICAL HISTORY: 23-year-old female with generalized pain, dark red stool. TECHNIQUE: Axial computed tomography images of the abdomen and pelvis with intravenous contrast. Axial delayed imaging through the abdomen was performed. Coronal and sagittal reformatted images of the equilibrium phase were created and reviewed. CTDI is 13.2 mGy and DLP is 1273.6 mGy-cm. This CT exam was performed using one or more of the following dose reduction techniques: automated exposure control, adjustment of the mA and/or kV according to patient size, and/or use of iterative reconstruction technique. COMPARISON: Abdomen and pelvis CT with contrast 06/29/2018; right upper quadrant ultrasound 08/13/2018 and 06/29/2018. FINDINGS: Lung bases: Unremarkable, apart from incidental 3 mm pleural-based nodule in the region of the anterolateral superior right middle lobe, not included on the prior exam. ABDOMEN: Liver: Unremarkable. Gallbladder and bile ducts: Unremarkable. Pancreas: Unremarkable. Spleen: Unremarkable. Adrenals: Unremarkable. Kidneys and ureters: Unremarkable. Stomach and bowel: Below-average amount of colonic stool. Small amounts of layering fluid/non-formed stool within the ascending and transverse colon. Air-fluid levels within a few non-pathologically dilated and otherwise grossly unremarkable small bowel loops. PELVIS: Appendix: Unremarkable. Bladder: Possible mild circumferential wall thickening of the mildly to moderately distended urinary bladder, similar to the prior exam, without pericystic fat stranding. Reproductive: Unremarkable. ABDOMEN and PELVIS: Intraperitoneal space: Trace pelvic ascites. No free air. Bones/joints: L4-5 broad dorsal disc protrusion/extrusion, measuring 5 mm in height, without definite significant interval change. Soft tissues: Tiny fat-containing umbilical hernia. Vasculature: Unremarkable. Lymph nodes: No pathologically enlarged lymph nodes. IMPRESSION: 1. No definite acute abnormality identified to explain symptoms. 2. Below-average amount of colonic stool, and air-fluid levels within a few non-pathologically dilated and otherwise grossly unremarkable small bowel loops as well as the right colon, suggesting mild nonspecific ileus.
[2018-10-26 07:34] VITALS: BP 103/80; PULSE 77; TEMP 98.2
== END 2018-10-26 07:32 | disposition home or self-care (01) ==
LOC: EC 05:21
DX: K64.8 Other hemorrhoids (principal); G89.29 Other chronic pain; Z72.810 Child and adolescent antisocial behavior; R11.2 Nausea with vomiting, unspecified; R19.7 Diarrhea, unspecified; K21.9 Gastro-esophageal reflux disease without esophagitis; F25.9 Schizoaffective disorder, unspecified; F41.9 Anxiety disorder, unspecified; F17.200 Nicotine dependence, unspecified, uncomplicated; Z88.0 Allergy status to penicillin; Z88.2 Allergy status to sulfonamides; Z88.8 Allergy status to other drugs, medicaments and biological substances; Z79.899 Other long term (current) drug therapy
CPT/HCPCS: 36415; 80053; 85025; 82272; 74177; 99284; Q9967

== ENCOUNTER 2018-11-03 02:03 | Emergency (ER) | payer OTHER ==
[2018-11-03 03:28] LABS: Appearance,Urine Cloudy (Clear); Bilirubin,Urine Negative (Negative); Blood,Urine Negative (Negative); Color,Urine Dark Yellow; Glucose,Urine (UA) Negative (Negative); Ketones,Urine Trace (Negative); Leukocyte Esterase,Urine Moderate (Negative); Mucus,Urine Many /hpf; Nitrite,Urine Negative (Negative); Protein,Urine 2+ (Negative); RBC,Urine 15 /hpf (0-5); Squamous Epithelial Cell,Urine 38 /hpf (0-4); WBC,Urine 13 /hpf (0-5)
[2018-11-03] MEDS ORDERED: metroNIDAZOLE 500 MG TAB PO STA (03:29)
[2018-11-03] MEDS ORDERED: AZITHROMYCIN 500 MG TAB PO STA (03:29)
[2018-11-03] MEDS ORDERED: cefTRIAXone 250 MG VIAL IM STA (03:29)
--- NOTE | 2018-11-03 03:58 | ED ---
General Adult HPI - General Source: patient, family, RN notes reviewed Mode of arrival: ambulatory Limitations: no limitations <Yunior Pacheco P - Last Filed: 11/03/18 03:50> <Madisyn Thomson P - Last Filed: 11/03/18 21:24> - General Chief complaint: Urogenital Stated complaint: Abdominal Pain Time Seen by Provider: 11/03/18 02:33 - History of Present Illness Initial comments: 23-year-old female presents to the emergency department for a chief complaint of possible STD. Patient states she has mild dysuria with urination and has had a white discharge. Patient afebrile. Patient denies abdominal pain nausea or vomiting. Patient is currently sexually active. Patient has no other complaints at this time including shortness of breath, chest pain, abdominal pain, nausea or vomiting, headache, or visual changes. (Yunior Pacheco) - Related Data Home Medications Medication Instructions Recorded Confirmed Acetaminophen [Tylenol] 500 mg PO Q4H PRN 10/25/18 11/03/18 Cetirizine HCl [Zyrtec] 10 mg PO DAILY 10/25/18 11/03/18 Ergocalciferol [Vitamin D2] 50,000 unit PO Q7D 10/25/18 11/03/18 Omeprazole [PriLOSEC] 20 mg PO DAILY 10/25/18 11/03/18 Ondansetron HCl [Zofran] 8 mg PO Q6HR PRN 10/25/18 11/03/18 Paliperidone IM [Invega Sustenna] 234 mg IM Q28D 10/25/18 11/03/18 Vitamin C Gummies 125 Mg 125 mg PO DAILY 10/25/18 11/03/18 busPIRone HCl [Buspar] 10 mg PO HS 10/25/18 11/03/18 hydrALAZINE HCL 100 mg PO HS 10/25/18 11/03/18 Previous Rx's Medication Instructions Recorded Ondansetron Odt [Zofran Odt] 4 mg PO Q8HR PRN #10 tab 10/25/18 Allergies Allergy/AdvReac Type Severity Reaction Status Date / Time Penicillins Allergy Severe Anaphylaxis Verified 11/03/18 02:21 Sulfa (Sulfonamide Allergy Severe Anaphylaxis Verified 11/03/18 02:21 Antibiotics) diphenhydramine HCl Allergy Nausea Verified 11/03/18 02:21 [From Benadryl] Review of Systems ROS Other: All systems not noted in ROS Statement are negative. <Yunior Pacheco P - Last Filed: 11/03/18 03:50> ROS Other: All systems not noted in ROS Statement are negative. <Jean Carlos Thomsonssica P - Last Filed: 11/03/18 21:24> ROS Statement: Those systems with pertinent positive or pertinent negative responses have been documented in the HPI. 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 Past Psychological History: Anxiety, Bipolar, Depression, Panic Disorder, PTSD, Schizoaffective Disorder Smoking Status: Current every day smoker Past Alcohol Use History: None Reported Past Drug Use History: Marijuana - Past Family History Mother Family Medical History: No Reported History Father Family Medical History: No Reported History Additional Family Medical History / Comment(s): bipolar, sever seasonal allergies Brother(s) Family Medical History: No Reported History Sister(s) Family Medical History: No Reported History <Yunior Pachceo P - Last Filed: 11/03/18 03:50> General Exam Limitations: no limitations General appearance: alert, in no apparent distress Head exam: Present: atraumatic, normocephalic, normal inspection Eye exam: Present: normal appearance, PERRL, EOMI. Absent: scleral icterus, conjunctival injection, periorbital swelling ENT exam: Present: normal exam, mucous membranes moist Neck exam: Present: normal inspection, full ROM. Absent: tenderness, meningismus, lymphadenopathy Respiratory exam: Present: normal lung sounds bilaterally. Absent: respiratory distress, wheezes, rales, rhonchi, stridor Cardiovascular Exam: Present: regular rate, normal rhythm, normal heart sounds. Absent: systolic murmur, diastolic murmur, rubs, gallop, clicks GI/Abdominal exam: Present: soft, normal bowel sounds. 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 Absent: erythema, swelling, lesions, lacerations, ecchymosis Speculum exam: Present: normal speculum exam. Absent: erythema, vaginal discharge, cervical discharge, vaginal bleeding, foreign body By manual exam: Present: normal by manual exam. Absent: cervical motion tende rness, adnexal tenderness, adnexal mass, uterine enlargement, uterine tenderness Neurological exam: Present: alert, oriented X3, CN II-XII intact Psychiatric exam: Present: normal affect, normal mood <Yunior Pacheco P - Last Filed: 11/03/18 03:50> Course Vital Signs 11/03/18 11/03/18 02:18 04:24 Temperature 97.3 F L 98.1 F Pulse Rate 86 74 Respiratory 20 16 Rate Blood Pressure 115/75 117/82 O2 Sat by Pulse 99 99 Oximetry Medical Decision Making <Yunior Pacheco P - Last Filed: 11/03/18 03:50> <Madisyn Thomson - Last Filed: 11/03/18 21:24> - Medical Decision Making 23-year-old female presents to the emergency department for a chief complaint of possible STD. Patient has dysuria and yellow discharge. Patient was tested for gonorrhea and chlamydia with a vaginal swab, will be sent to lab. Trichomonas also tested and pending. Patient will be treated empirically. Patient is ALLERGIC to penicillin but has received Rocephin multiple times prior without crepitation. She will follow on results. She will return here she has any worsening symptoms. Patient's partner also being treated here in the emergency department. (Yunior Pacheco) I was available for consultation in the emergency department. The history and physical exam were done by the midlevel provider. I was consulted for this patient's care. I reviewed the case with the midlevel provider and based on their presentation of the patient, I agree with the assessment, medical decision making and plan of care as documented. (Madisyn Thomson) - Lab Data Lab Results 11/03/18 11/03/18 11/03/18 Range/Units 02:40 02:40 03:15 Urine Color Dark Yellow Urine Appearance Cloudy H (Clear) Urine pH 6.0 (5.0-8.0) Ur Specific [place] 1.040 H (1.001-1.035) Urine Protein 2+ H (Negative) Urine Glucose (UA) Negative (Negative) Urine Ketones Trace H (Negative) Urine Blood Negative (Negative) Urine Nitrite Negative (Negative) Urine Bilirubin Negative (Negative) Urine Urobilinogen 4.0 (<2.0) mg/dL Ur Leukocyte Esterase Moderate H (Negative) Urine RBC 15 H (0-5) /hpf Urine WBC 13 H (0-5) /hpf Ur Squamous Epith Cells 38 H (0-4) /hpf Urine Mucus Many H (None) /hpf Urine HCG, Qual Not Detected (Not Detectd) Trichomonas Ag (Rapid) Negative (Negative) Disposition Is patient prescribed a controlled substance at d/c from ED?: No Time of Disposition: 03:57 <Yunior Pacheco P - Last Filed: 11/03/18 03:50> <Madisyn Thomson P - Last Filed: 11/03/18 21:24> Clinical Impression: Screening examination for STD (sexually transmitted disease) Disposition: HOME SELF-CARE Condition: Good Instructions (If sedation given, give patient instructions): Sexually Transmitted Diseases (ED), Safe Sex (ED) Additional Instructions: Please follow up with primary care in 1-2 days. Please return here to the emergency department if you have any worsening symptoms. Referrals: Lauren Denson MD [Primary Care Provider] - 1-2 days
[2018-11-03 04:25] VITALS: BP 117/82; PULSE 74; RESP 16; TEMP 98.1
[2018-11-05 08:16] LABS: C. trachomatis,PCR Negative (Neg,Equiv); Chlamydia trachomatis Source Vagina
[2018-11-05 08:17] LABS: N. gonorrhoeae,PCR Negative (Neg,Equiv); Neisseria Source Vagina
== END 2018-11-03 04:25 | disposition home or self-care (01) ==
LOC: EC 02:03
DX: Z11.3 Encounter for screening for infections with a predominantly sexual mode of transmission (principal); R30.0 Dysuria; N89.8 Other specified noninflammatory disorders of vagina; K21.9 Gastro-esophageal reflux disease without esophagitis; Z87.442 Personal history of urinary calculi; F41.9 Anxiety disorder, unspecified; F25.1 Schizoaffective disorder, depressive type; F25.0 Schizoaffective disorder, bipolar type; F43.10 Post-traumatic stress disorder, unspecified; F17.200 Nicotine dependence, unspecified, uncomplicated; Z79.899 Other long term (current) drug therapy; Z88.0 Allergy status to penicillin; Z88.2 Allergy status to sulfonamides; Z88.8 Allergy status to other drugs, medicaments and biological substances
CPT/HCPCS: 81001; 81025; 87808; 87491; 87591; 99284; 96372; J0696

== ENCOUNTER 2018-12-04 01:25 | Emergency (ER) | payer OTHER ==
[2018-12-04] MEDS ORDERED: ONDANSETRON 4 MG ODT STARTER PACK 2 TAB BTL ONE (02:40)
[2018-12-04 08:23] LABS: Appearance,Urine Clear (Clear); Bacteria,Urine Rare /hpf; Bilirubin,Urine Negative (Negative); Blood,Urine Negative (Negative); Color,Urine Yellow; Glucose,Urine (UA) Negative (Negative); Ketones,Urine Negative (Negative); Leukocyte Esterase,Urine Small (Negative); Mucus,Urine Few /hpf; Nitrite,Urine Negative (Negative); PH, Urine 5.5 (5.0-8.0); Protein,Urine Trace (Negative); RBC,Urine 1 /hpf (0-5); Specific Gravity,Urine 1.028 (1.001-1.035); Squamous Epithelial Cell,Urine 2 /hpf (0-4); Urobilinogen,Urine <2.0 mg/dL (<2.0); WBC,Urine 6 /hpf (0-5)
== END 2018-12-04 02:30 ==
LOC: EC 01:25
DX: R11.2 Nausea with vomiting, unspecified (principal); R10.13 Epigastric pain; F17.200 Nicotine dependence, unspecified, uncomplicated; Z88.0 Allergy status to penicillin; Z88.2 Allergy status to sulfonamides
CPT/HCPCS: 81001; 81025; 99284

== ENCOUNTER 2019-01-04 05:01 | Emergency (ER) | payer OTHER ==
[2019-01-04 05:09] VITALS: BP 108/73; PULSE 95; RESP 20; TEMP 98.2
[2019-01-04] MEDS ORDERED: predniSONE 20 MG TAB PO STA (05:45)
[2019-01-04] MEDS ORDERED: ACETAMINOPHEN TAB 325 MG TAB PO STA (05:45)
--- NOTE | 2019-01-04 06:00 | ED ---
ENT HPI - General Chief complaint: ENT Stated complaint: Sore Throat/ENT Source: patient Mode of arrival: ambulatory Limitations: no limitations - History of Present Illness Initial comments: Rahda is a 23-year-old female presents the emergency department today for evaluation of sore throat. Patient reports a prior to going to bed last night she was eating popcorn, she feels as though she may have scratched the back of her throat because her right tonsil seems to be hurting quite a bit. Patient reports she hasn't been able sleep due to the pain so she came to the ER for e valuation. She states she didn't have anything at home for the pain so she hasn't taken any which she would like some Tylenol. MD complaint: sore throat -: hour(s) Location: throat Severity: moderate Quality: sharp Consistency: constant Worsens with: swallowing - Related Data Home Medications Medication Instructions Recorded Confirmed Acetaminophen [Tylenol] 500 mg PO Q4H PRN 10/25/18 01/04/19 Cetirizine HCl [Zyrtec] 10 mg PO DAILY 10/25/18 01/04/19 Ergocalciferol [Vitamin D2] 50,000 unit PO Q7D 10/25/18 01/04/19 Omeprazole [PriLOSEC] 20 mg PO DAILY 10/25/18 01/04/19 Paliperidone IM [Invega Sustenna] 234 mg IM Q28D 10/25/18 01/04/19 Vitamin C Gummies 125 Mg 125 mg PO DAILY 10/25/18 01/04/19 busPIRone HCl [Buspar] 10 mg PO HS 10/25/18 01/04/19 hydrALAZINE HCL 100 mg PO HS 10/25/18 01/04/19 Previous Rx's Medication Instructions Recorded Ondansetron Odt [Zofran Odt] 4 mg PO Q8HR PRN #10 tab 10/25/18 Azithromycin [Zithromax] 500 mg PO DAILY 3 Days #4 tab 01/04/19 Allergies Allergy/AdvReac Type Severity Reaction Status Date / Time Penicillins Allergy Severe Anaphylaxis Verified 11/03/18 02:21 Sulfa (Sulfonamide Allergy Severe Anaphylaxis Verified 11/03/18 02:21 Antibiotics) diphenhydramine HCl Allergy Nausea Verified 11/03/18 02:21 [From Benadryl] Review of Systems ROS Statement: Those systems with pertinent positive or pertinent negative responses have been documented in the HPI. ROS Other: All systems not noted in ROS Statement are negative. 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 Past Psychological History: Anxiety, Bipolar, Depression, Panic Disorder, PTSD, Schizoaffective Disorder Smoking Status: Current every day smoker Past Alcohol Use History: None Reported Past Drug Use History: Marijuana - Past Family History Mother Family Medical History: No Reported History Father Family Medical History: No Reported History Additional Family Medical History / Comment(s): bipolar, sever seasonal allergies Brother(s) Family Medical History: No Reported History Sister(s) Family Medical History: No Reported History General Exam - General Exam Comments Initial Comments: Physical Exam GENERAL: Patient is well-developed and well-nourished. Patient is nontoxic and well- hydrated and is in no distress. HENT: Normocephalic, Atraumatic. TM normal bilaterally Tonsillar enlargement, exudate noted, no injury or bleeding noted EYES: PERRL, EOMI PULMONARY: Unlabored respirations. CARDIOVASCULAR: RRR ABDOMEN: Soft and nontender with normal bowel sounds. SKIN: Skin is clear with no lesions or rashes and otherwise unremarkable. : Deferred NEUROLOGIC: Patient is alert and oriented x3. Moving all extremities spontaneously MUSCULOSKELETAL: Normal extremities with adequate strength and full range of motion. No lower extremity swelling or edema. No calf tenderness. PSYCHIATRIC: Childlike demeanor Limitations: no limitations Course Vital Signs 01/04/19 05:06 Temperature 98.2 F Pulse Rate 95 Respiratory 20 Rate Blood Pressure 108/73 O2 Sat by Pulse 98 Oximetry Medical Decision Making - Medical Decision Making The patient was seen and evaluated history is obtained from patient physical exam is concerning for strep pharyngitis, steroids were given Tylenol was given for discomfort, sore obtained and did reveal strep positive. Patient has a penicillin ALLERGY therefore will be treated with high-dose azithromycin for 5 days duration. First dose given in the emergency department patient discharged home with prescription for azithromycin 500 mg orally. - Lab Data Lab Results 01/04/19 Range/Units 05:50 Group A Strep Rapid Positive A (Negative) Disposition Clinical Impression: Streptococcal sore throat Disposition: HOME SELF-CARE Condition: Stable Instructions (If sedation given, give patient instructions): Strep Throat (DC) Prescriptions: Azithromycin [Zithromax] 500 mg PO DAILY 3 Days #4 tab Is patient prescribed a controlled substance at d/c from ED?: No Referrals: Lauren Denson MD [Primary Care Provider] - 1-2 days
[2019-01-04] MEDS ORDERED: AZITHROMYCIN 500 MG TAB PO STA (06:22)
== END 2019-01-04 06:38 | disposition home or self-care (01) ==
LOC: EC 05:01
DX: J02.0 Streptococcal pharyngitis (principal); K21.9 Gastro-esophageal reflux disease without esophagitis; F41.9 Anxiety disorder, unspecified; F43.10 Post-traumatic stress disorder, unspecified; F25.1 Schizoaffective disorder, depressive type; F25.0 Schizoaffective disorder, bipolar type; F17.200 Nicotine dependence, unspecified, uncomplicated; Z79.899 Other long term (current) drug therapy; Z88.0 Allergy status to penicillin; Z88.2 Allergy status to sulfonamides; Z88.8 Allergy status to other drugs, medicaments and biological substances
CPT/HCPCS: 87430; 99283; J7512

== ENCOUNTER 2019-02-03 21:01 | Emergency (ER) | payer OTHER ==
[2019-02-03 21:59] LABS: Appearance,Urine Clear (Clear); Bilirubin,Urine Negative (Negative); Blood,Urine Moderate (Negative); Color,Urine Yellow; Glucose,Urine (UA) Negative (Negative); Ketones,Urine Negative (Negative); Leukocyte Esterase,Urine Negative (Negative); Mucus,Urine Rare /hpf; Nitrite,Urine Negative (Negative); PH, Urine 5.5 (5.0-8.0); Protein,Urine Negative (Negative); RBC,Urine 9 /hpf (0-5); Specific Gravity,Urine 1.025 (1.001-1.035); Squamous Epithelial Cell,Urine 1 /hpf (0-4); Urobilinogen,Urine <2.0 mg/dL (<2.0); WBC,Urine 2 /hpf (0-5)
[2019-02-03] MEDS ORDERED: KETOROLAC 30 MG/ML 1 ML VIAL IVP STA (22:42)
[2019-02-03] MEDS ORDERED: SODIUM CHLORIDE 0.9% 1,000 ML IV STA (22:42)
[2019-02-03 23:09] LABS: Basophils % (A) 0 %; Eosinophils # (A) 0.2 k/uL (0-0.7); Eosinophils % (A) 2 %; HCT 34.6 % (34.0-46.0); HGB 11.7 gm/dL (11.4-16.0); Lymphocytes # (A) 3.1 k/uL (1.0-4.8); Lymphocytes % (A) 33 %; MCH 27.5 pg (25.0-35.0); MCHC 33.7 g/dL (31.0-37.0); MCV 81.6 fL (80.0-100.0); Monocytes # (A) 0.4 k/uL (0-1.0); Monocytes % (A) 4 %; Neutrophils # (A) 5.7 k/uL (1.3-7.7); Neutrophils % (A) 60 %; Platelet Count 220 k/uL (150-450); RBC 4.24 m/uL (3.80-5.40); RDW 15.6 % (11.5-15.5); WBC 9.6 k/uL (3.8-10.6)
[2019-02-03 23:20] LABS: ALT 32 U/L (9-52); AST 22 U/L (14-36); African American GFR (CKD) >90 (>60 ml/min/1.73 sqM); Albumin 3.8 g/dL (3.5-5.0); Alkaline Phosphatase 82 U/L (38-126); Anion Gap 8 mmol/L; Blood Urea Nitrogen 11 mg/dL (7-17); Carbon Dioxide 21 mmol/L (22-30); Chloride 111 mmol/L (98-107); Glucose 84 mg/dL (74-99); Lipase 70 U/L (23-300); Sodium 140 mmol/L (137-145); Total Bilirubin 0.2 mg/dL (0.2-1.3); Total Protein 6.4 g/dL (6.3-8.2)
--- NOTE | 2019-02-03 23:29 | CT ---
EXAM: CT Abdomen and Pelvis With Intravenous Contrast CLINICAL HISTORY: ITS.REASON CT Reason: abdominal pain TECHNIQUE: Axial computed tomography images of the abdomen and pelvis with intravenous contrast. CTDI is 12.4, 12.7 mGy and DLP is 661.6, 363.2 mGy- cm. This CT exam was performed using one or more of the following dose reduction techniques: automated exposure control, adjustment of the mA and/or kV according to patient size, and/or use of iterative reconstruction technique. Delayed imaging was performed. COMPARISON: CT abdomen pelvis 10/26/2018. FINDINGS: Lung bases: Unremarkable. No mass. No consolidation. ABDOMEN: Liver: Unremarkable. No mass. Gallbladder and bile ducts: Unremarkable. No calcified stones. No ductal dilation. Pancreas: Unremarkable. No mass. No ductal dilation. Spleen: Unremarkable. No splenomegaly. Adrenals: Unremarkable. No mass. Kidneys and ureters: Unremarkable. No solid mass. No hydronephrosis. Stomach and bowel: Unremarkable. No obstruction. No mucosal thickening. PELVIS: Appendix: No findings to suggest acute appendicitis. Bladder: Unremarkable. No mass. Reproductive: Unremarkable as visualized. ABDOMEN and PELVIS: Intraperitoneal space: Unremarkable. No free air. No significant fluid collection. Bones/joints: No acute fracture. No dislocation. Soft tissues: Unremarkable. Vasculature: Unremarkable. No abdominal aortic aneurysm. Lymph nodes: Unremarkable. No enlarged lymph nodes. IMPRESSION: No evidence of acute appendicitis or other acute abnormality in the abdomen or pelvis.
[2019-02-03] MEDS ORDERED: PANTOPRAZOLE 40 MG/10 ML VIAL IVP STA (23:41)
--- NOTE | 2019-02-03 23:44 | ED ---
General Adult HPI - General Chief complaint: Abdominal Pain Stated complaint: Abd Pain Time Seen by Provider: 02/03/19 21:33 Source: patient, RN notes reviewed, old records reviewed Mode of arrival: ambulatory - History of Present Illness Initial comments: 23-year-old female patient presents to ED with abdominal pain. Patient was dishes pain in her right upper quadrant as well as her periumbilical suprapubic right lower quadrant regions. Patient also complains of some mild dysuria. Patient has any nausea or vomiting. Patient states that she recently was checked for STDs do not believe she has no STD. Patient reports that she cannot be . Patient denies any adnexal pain. Patient fully toward triage nurse that she believes she may be some infection, however patient now denies that she is in the symptoms. Denies any pruritus, denies any discharge. Patient denies any other complaints at this time. Systemic: Pt denies fatigue, fever/chills, rash. Pt denies weakness, night sweats, weight loss. Neuro: Pt denies headache, visual disturbances, syncope or pre-syncope. HEENT: Pt denies ocular discharge or irritation, otalgia, rhinorrhea, pharyngitis or notable lymphadenopathy. Cardiopulmonary: Pt denies chest pain, SOB, heart palpitations, dyspnea on exer tion. Abdominal/GI: Pt denies n/v/d. : Pt denies burning w/ urination, frequency/urgency. Denies new onset urinary or bowel incontinence. MSK: Pt denies myalgia, loss of strength or function in extremities. Neuro: Pt denies new onset weakness, paresthesias. - Related Data Home Medications Medication Instructions Recorded Confirmed Cetirizine HCl [Zyrtec] 10 mg PO DAILY 10/25/18 02/03/19 Omeprazole [PriLOSEC] 20 mg PO DAILY 10/25/18 02/03/19 Polyethylene Glycol 3350 [Miralax] 17 gm PO DAILY 01/21/19 02/03/19 Previous Rx's Medication Instructions Recorded Ibuprofen [Motrin] 600 mg PO Q8HR PRN #30 tab 01/21/19 Allergies Allergy/AdvReac Type Severity Reaction Status Date / Time Penicillins Allergy Severe Anaphylaxis Verified 02/03/19 21:29 Sulfa (Sulfonamide Allergy Severe Anaphylaxis Verified 02/03/19 21:29 Antibiotics) diphenhydramine HCl Allergy Nausea Verified 02/03/19 21:29 [From Benadryl] Review of Systems ROS Statement: Those systems with pertinent positive or pertinent negative responses have been documented in the HPI. ROS Other: All systems not noted in ROS Statement are negative. 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 Past Psychological History: Anxiety, Bipolar, Depression, Panic Disorder, PTSD, Schizoaffective Disorder Smoking Status: Current every day smoker Past Alcohol Use History: None Reported Past Drug Use History: Marijuana - Past Family History Mother Family Medical History: No Reported History Father Family Medical History: No Reported History Additional Family Medical History / Comment(s): bipolar, sever seasonal a llergies Brother(s) Family Medical History: No Reported History Sister(s) Family Medical History: No Reported History General Exam - General Exam Comments Initial Comments: Constitutional: NAD, AOX3, Pt has pleasant affect. HEENT: NC/AT, trachea midline, neck supple, no lymphadenopathy. Posterior pharynx non erythematous, without exudates. External ears appear normal, without discharge. Mucous membranes moist. Eyes PERRLA, EOM intact. There is no scleral icterus. No pallor noted. Cardiopulmonary: RRR, no murmurs, rubs or gallops, no JVD noted. Lungs CTAB in anterior and posterior lovett. No peripheral edema. Abdominal exam: Abdomen soft and non-distended. Abdomen mild tenderness to palpation in suprapubic, right lower quadrant, periumbilical, right upper quadrant region. Burr sign negative. Rosvings sign negative.. Bowel sounds active in LLQ. No hepatosplenomegaly. No ecchymosis Neuro: CN II-XII grossly intact. No nuchal rigidity. No raccon eyes, no rojo sign, no hemotympanum. No cervical spinal tenderness. MSK: No posterior calf tenderness bilaterally, homans sign negative bilaterally. Posterior tibialis and radial pulse +2 bilaterally. Sensation intact in upper and lower extremities. Full active ROM in upper and lower extremities, 5/5 stregnth. Course Vital Signs 02/03/19 21:11 Temperature 99.2 F Pulse Rate 84 Respiratory 15 Rate Blood Pressure 108/72 O2 Sat by Pulse 98 Oximetry Medical Decision Making - Medical Decision Making 23-year-old female patient presents to ED with abdominal pain. Patient was dishes pain in her right upper quadrant as well as her periumbilical suprapubic right lower quadrant regions. Patient also complains of some mild dysuria. Patient has any nausea or vomiting. Patient states that she recently was checked for STDs do not believe she has no STD. Patient reports that she cannot be . Patient denies any adnexal pain. Patient fully toward triage nurse that she believes she may be some infection, however patient now denies that she is in the symptoms. Denies any pruritus, denies any discharge. Patient denies any other complaints at this time. Patient vital signs stable, afebrile. Physical exam displayed: Abdomen soft and non-distended. Abdomen mild tenderness to palpation in suprapubic, right lower quadrant, periumbilical, right upper quadrant region. Burr sign negative. Rosvings sign negative.. Laboratory investigations reveal non-impressive CBC, CMP, UA. Lipase is negative. HCG is negative. CT abdomen and pelvis displayed no acute process, ultrasound of gallbladder displayed no acute process. Patient declined a Min. Patient did not wish to be empirically treated for STD. Patient will be discharged, follow with primary care provider, return to ER if condition worsens. Case discussed with Dr. Thomson. - Lab Data Result diagrams: 02/03/19 22:15 02/03/19 22:15 Lab Results 02/03/19 02/03/19 02/03/19 Range/Units 21:40 21:40 22:15 WBC 9.6 (3.8-10.6) k/uL RBC 4.24 (3.80-5.40) m/uL Hgb 11.7 (11.4-16.0) gm/dL Hct 34.6 (34.0-46.0) % MCV 81.6 (80.0-100.0) fL MCH 27.5 (25.0-35.0) pg MCHC 33.7 (31.0-37.0) g/dL RDW 15.6 H (11.5-15.5) % Plt Count 220 (150-450) k/uL Neutrophils % 60 % Lymphocytes % 33 % Monocytes % 4 % Eosinophils % 2 % Basophils % 0 % Neutrophils # 5.7 (1.3-7.7) k/uL Lymphocytes # 3.1 (1.0-4.8) k/uL Monocytes # 0.4 (0-1.0) k/uL Eosinophils # 0.2 (0-0.7) k/uL Basophils # 0.0 (0-0.2) k/uL Sodium (137-145) mmol/L Potassium (3.5-5.1) mmol/L Chloride (98-107) mmol/L Carbon Dioxide (22-30) mmol/L Anion Gap mmol/L BUN (7-17) mg/dL Creatinine (0.52-1.04) mg/dL Est GFR (CKD-EPI)AfAm (>60 ml/min/1.73 sqM) Est GFR (CKD-EPI)NonAf (>60 ml/min/1.73 sqM) Glucose (74-99) mg/dL Plasma Lactic Acid Dinh (0.7-2.0) mmol/L Calcium (8.4-10.2) mg/dL Total Bilirubin (0.2-1.3) mg/dL AST (14-36) U/L ALT (9-52) U/L Alkaline Phosphatase (38-126) U/L Total Protein (6.3-8.2) g/dL Albumin (3.5-5.0) g/dL Lipase (23-300) U/L Urine Color Yellow Urine Appearance Clear (Clear) Urine pH 5.5 (5.0-8.0) Ur Specific [place] 1.025 (1.001-1.035) Urine Protein Negative (Negative) Urine Glucose (UA) Negative (Negative) Urine Ketones Negative (Negative) Urine Blood Moderate H (Negative) Urine Nitrite Negative (Negative) Urine Bilirubin Negative (Negative) Urine Urobilinogen <2.0 (<2.0) mg/dL Ur Leukocyte Esterase Negative (Negative) Urine RBC 9 H (0-5) /hpf Urine WBC 2 (0-5) /hpf Ur Squamous Epith Cells 1 (0-4) /hpf Urine Mucus Rare H (None) /hpf Urine HCG, Qual Not Detected (Not Detectd) 02/03/19 02/03/19 Range/Units 22:15 22:15 WBC (3.8-10.6) k/uL RBC (3.80-5.40) m/uL Hgb (11.4-16.0) gm/dL Hct (34.0-46.0) % MCV (80.0-100.0) fL MCH (25.0-35.0) pg MCHC (31.0-37.0) g/dL RDW (11.5-15.5) % Plt Count (150-450) k/uL Neutrophils % % Lymphocytes % % Monocytes % % Eosinophils % % Basophils % % Neutrophils # (1.3-7.7) k/uL Lymphocytes # (1.0-4.8) k/uL Monocytes # (0-1.0) k/uL Eosinophils # (0-0.7) k/uL Basophils # (0-0.2) k/uL Sodium 140 (137-145) mmol/L Potassium 4.0 (3.5-5.1) mmol/L Chloride 111 H (98-107) mmol/L Carbon Dioxide 21 L (22-30) mmol/L Anion Gap 8 mmol/L BUN 11 (7-17) mg/dL Creatinine 0.95 (0.52-1.04) mg/dL Est GFR (CKD-EPI)AfAm >90 (>60 ml/min/1.73 sqM) Est GFR (CKD-EPI)NonAf 85 (>60 ml/min/1.73 sqM) Glucose 84 (74-99) mg/dL Plasma Lactic Acid Dinh 1.0 (0.7-2.0) mmol/L Calcium 9.0 (8.4-10.2) mg/dL Total Bilirubin 0.2 (0.2-1.3) mg/dL AST 22 (14-36) U/L ALT 32 (9-52) U/L Alkaline Phosphatase 82 (38-126) U/L Total Protein 6.4 (6.3-8.2) g/dL Albumin 3.8 (3.5-5.0) g/dL Lipase 70 (23-300) U/L Urine Color Urine Appearance (Clear) Urine pH (5.0-8.0) Ur Specific [place] (1.001-1.035) Urine Protein (Negative) Urine Glucose (UA) (Negative) Urine Ketones (Negative) Urine Blood (Negative) Urine Nitrite (Negative) Urine Bilirubin (Negative) Urine Urobilinogen (<2.0) mg/dL Ur Leukocyte Esterase (Negative) Urine RBC (0-5) /hpf Urine WBC (0-5) /hpf Ur Squamous Epith Cells (0-4) /hpf Urine Mucus (None) /hpf Urine HCG, Qual (Not Detectd) Disposition Clinical Impression: Abdominal pain Disposition: HOME SELF-CARE Condition: Stable Instructions (If sedation given, give patient instructions): Abdominal Pain (ED) Additional Instructions: Patient to adhere to previously discussed treatment plan and will take medication(s) as directed. Patient to follow up with PCP in 1-2 days. Patient to return to ED if symptoms do not improve. Return to ER if condition worsens. Is patient prescribed a controlled substance at d/c from ED?: No Referrals: Lauren Denson MD [Primary Care Provider] - 1-2 days
--- NOTE | 2019-02-04 00:03 | US ---
EXAM: US Abdomen Limited, Right Upper Quadrant CLINICAL HISTORY: ITS.REASON US Reason: Pain TECHNIQUE: Real-time ultrasound of the right upper quadrant with image documentation. COMPARISON: CT abdomen and pelvis 02/03/2019. FINDINGS: Liver: The liver measures up to 16.4 cm. No intrahepatic bile duct dilation. Gallbladder: The gallbladder is contracted. No gallstones. Common bile duct: Common bile duct measures up to 4 mm. No stones. No dilation. Pancreas: The pancreas is not well seen, obscured by bowel gas. Right kidney: Right kidney measures up to 10.6 cm in long axis. No stones. No hydronephrosis. IMPRESSION: No cholelithiasis or sonographic evidence of acute cholecystitis.
[2019-02-04 00:42] VITALS: BP 109/73; PULSE 77; RESP 18; TEMP 98
[2019-02-04 12:52] LABS: C. trachomatis,PCR Negative (Neg,Equiv); Chlamydia trachomatis Source Urine
[2019-02-04 12:53] LABS: N. gonorrhoeae,PCR Negative (Neg,Equiv); Neisseria Source Urine
== END 2019-02-04 00:41 | disposition home or self-care (01) ==
LOC: EC 21:01
DX: R10.11 Right upper quadrant pain (principal); R10.33 Periumbilical pain; R10.31 Right lower quadrant pain; Z32.02 Encounter for pregnancy test, result negative; K21.9 Gastro-esophageal reflux disease without esophagitis; F17.200 Nicotine dependence, unspecified, uncomplicated; Z79.899 Other long term (current) drug therapy; Z88.0 Allergy status to penicillin; Z88.2 Allergy status to sulfonamides; Z88.8 Allergy status to other drugs, medicaments and biological substances
CPT/HCPCS: 36415; 80053; 83605; 83690; 85025; 81001; 81025; 87491; 87591; 76705; 74177; 99284; 96374; 96375; 96361; J1885; C9113; Q9967

== ENCOUNTER 2019-02-21 18:04 | Emergency (ER) | payer OTHER ==
[2019-02-21 18:18] VITALS: BP 111/64; PULSE 85; RESP 12; TEMP 98.2
[2019-02-21] MEDS ORDERED: SODIUM CHLORIDE 0.9% 1,000 ML IV STA (18:24)
--- NOTE | 2019-02-21 18:37 | ED ---
General Adult HPI - General Chief complaint: Syncope Stated complaint: near syncope Time Seen by Provider: 02/21/19 18:05 Source: patient Mode of arrival: EMS Limitations: no limitations - History of Present Illness Initial comments: 23-year-old female patient presents to the emergency department today for evaluation after having a near syncopal episode. The patient states that she was walking and her vision became dark, states that she did fall into the wall and took some deep breaths until the feeling passed. Patient states this occurred shortly after she donated plasma today. Patient states that she has donated plasma only one time in the past and that was one week ago. States that she has been having intermittent dizzy episodes for the last 6-9 months. States that her primary care physician believes it may be from her Prolixin injection. Patient is unsure she may be . She denies any headache, blurred vision, double vision, chest pain, shortness of breath, palpitations, abdominal pain, nausea, or vomiting. Denies any constipation or diarrhea. Denies any hematochezia or melena. Denies heavy periods. Patient denies any recent rash, fever, chills, back pain, numbness, tingling, dizziness, weakness, hematuria, dysuria, urinary urgency, urinary frequency, or any other complaints. - Related Data Home Medications Medication Instructions Recorded Confirmed Cetirizine HCl [Zyrtec] 10 mg PO DAILY 10/25/18 02/03/19 Omeprazole [PriLOSEC] 20 mg PO DAILY 10/25/18 02/03/19 Polyethylene Glycol 3350 [Miralax] 17 gm PO DAILY 01/21/19 02/03/19 Previous Rx's Medication Instructions Recorded Ibuprofen [Motrin] 600 mg PO Q8HR PRN #30 tab 01/21/19 Allergies Allergy/AdvReac Type Severity Reaction Status Date / Time Penicillins Allergy Severe Anaphylaxis Verified 02/03/19 21:29 Sulfa (Sulfonamide Allergy Severe Anaphylaxis Verified 02/03/19 21:29 Antibiotics) diphenhydramine HCl Allergy Nausea Verified 02/03/19 21:29 [From Benadryl] Review of Systems ROS Statement: Those systems with pertinent positive or pertinent negative responses have been documented in the HPI. ROS Other: All systems not noted in ROS Statement are negative. 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 Past Psychological History: Anxiety, Bipolar, Depression, Panic Disorder, PTSD, Schizoaffective Disorder Smoking Status: Current every day smoker Past Alcohol Use History: None Reported Past Drug Use History: Marijuana - Past Family History Mother Family Medical History: No Reported History Father Family Medical History: No Reported History Additional Family Medical History / Comment(s): bipolar, sever seasonal allergies Brother(s) Family Medical History: No Reported History Sister(s) Family Medical History: No Reported History General Exam Limitations: no limitations General appearance: alert, in no apparent distress, other (Physical well- developed, well-nourished adult female patient in no acute distress. Vital signs upon presentation are temperature 98.2F, pulse 85, respirations 12, blood pressure 111/64, pulse ox 98% on room air.) Eye exam: Present: normal appearance, PERRL, EOMI. Absent: scleral icterus, conjunctival injection, nystagmus, periorbital swelling ENT exam: Present: normal exam, normal oropharynx Respiratory exam: Present: normal lung sounds bilaterally. Absent: respiratory distress, wheezes, rales, rhonchi, stridor Cardiovascular Exam: Present: regular rate, normal rhythm, normal heart sounds. Absent: systolic murmur, diastolic murmur, rubs, gallop, clicks GI/Abdominal exam: Present: soft, normal bowel sounds. Absent: distended, tenderness, guarding, rebound, rigid Neurological exam: Present: alert, oriented X3, CN II-XII intact Psychiatric exam: Present: normal affect, normal mood Skin exam: Present: warm, dry, intact, normal color. Absent: rash Course Vital Signs 02/21/19 18:08 Temperature 98.2 F Pulse Rate 85 Respiratory 12 Rate Blood Pressure 111/64 O2 Sat by Pulse 98 Oximetry Medical Decision Making - Lab Data Result diagrams: 02/21/19 18:00 02/21/19 18:00 Lab Results 02/21/19 02/21/19 02/21/19 Range/Units 18:00 18:00 18:00 WBC 11.7 H (3.8-10.6) k/uL RBC 4.83 (3.80-5.40) m/uL Hgb 13.5 (11.4-16.0) gm/dL Hct 40.7 (34.0-46.0) % MCV 84.3 (80.0-100.0) fL MCH 27.9 (25.0-35.0) pg MCHC 33.1 (31.0-37.0) g/dL RDW 15.8 H (11.5-15.5) % Plt Count 229 (150-450) k/uL Neutrophils % 65 % Lymphocytes % 28 % Monocytes % 4 % Eosinophils % 2 % Basophils % 0 % Neutrophils # 7.5 (1.3-7.7) k/uL Lymphocytes # 3.3 (1.0-4.8) k/uL Monocytes # 0.5 (0-1.0) k/uL Eosinophils # 0.2 (0-0.7) k/uL Basophils # 0.1 (0-0.2) k/uL PT 10.1 (9.0-12.0) sec INR 0.9 (<1.2) APTT 24.7 (22.0-30.0) sec Sodium 139 (137-145) mmol/L Potassium 4.1 (3.5-5.1) mmol/L Chloride 110 H (98-107) mmol/L Carbon Dioxide 21 L (22-30) mmol/L Anion Gap 8 mmol/L BUN 11 (7-17) mg/dL Creatinine 0.75 (0.52-1.04) mg/dL Est GFR (CKD-EPI)AfAm >90 (>60 ml/min/1.73 sqM) Est GFR (CKD-EPI)NonAf >90 (>60 ml/min/1.73 sqM) Glucose 91 (74-99) mg/dL Calcium 8.6 (8.4-10.2) mg/dL Total Bilirubin 0.3 (0.2-1.3) mg/dL AST 28 (14-36) U/L ALT 30 (9-52) U/L Alkaline Phosphatase 59 (38-126) U/L Troponin I (0.000-0.034) ng/mL Total Protein 5.6 L (6.3-8.2) g/dL Albumin 3.1 L (3.5-5.0) g/dL TSH 1.480 (0.465-4.680) mIU/L Urine HCG, Qual (Not Detectd) 02/21/19 02/21/19 Range/Units 18:00 19:06 WBC (3.8-10.6) k/uL RBC (3.80-5.40) m/uL Hgb (11.4-16.0) gm/dL Hct (34.0-46.0) % MCV (80.0-100.0) fL MCH (25.0-35.0) pg MCHC (31.0-37.0) g/dL RDW (11.5-15.5) % Plt Count (150-450) k/uL Neutrophils % % Lymphocytes % % Monocytes % % Eosinophils % % Basophils % % Neutrophils # (1.3-7.7) k/uL Lymphocytes # (1.0-4.8) k/uL Monocytes # (0-1.0) k/uL Eosinophils # (0-0.7) k/uL Basophils # (0-0.2) k/uL PT (9.0-12.0) sec INR (<1.2) APTT (22.0-30.0) sec Sodium (137-145) mmol/L Potassium (3.5-5.1) mmol/L Chloride (98-107) mmol/L Carbon Dioxide (22-30) mmol/L Anion Gap mmol/L BUN (7-17) mg/dL Creatinine (0.52-1.04) mg/dL Est GFR (CKD-EPI)AfAm (>60 ml/min/1.73 sqM) Est GFR (CKD-EPI)NonAf (>60 ml/min/1.73 sqM) Glucose (74-99) mg/dL Calcium (8.4-10.2) mg/dL Total Bilirubin (0.2-1.3) mg/dL AST (14-36) U/L ALT (9-52) U/L Alkaline Phosphatase (38-126) U/L Troponin I <0.012 (0.000-0.034) ng/mL Total Protein (6.3-8.2) g/dL Albumin (3.5-5.0) g/dL TSH (0.465-4.680) mIU/L Urine HCG, Qual Not Detected (Not Detectd) Disposition Clinical Impression: Near syncope Disposition: Left Against Medical Advice Condition: Undetermined Is patient prescribed a controlled substance at d/c from ED?: No Referrals: Lauren Denson MD [Primary Care Provider] - 1-2 days
[2019-02-21 18:46] LABS: Basophils # (A) 0.1 k/uL (0-0.2); Basophils % (A) 0 %; Eosinophils # (A) 0.2 k/uL (0-0.7); Eosinophils % (A) 2 %; HCT 40.7 % (34.0-46.0); HGB 13.5 gm/dL (11.4-16.0); Lymphocytes # (A) 3.3 k/uL (1.0-4.8); Lymphocytes % (A) 28 %; MCH 27.9 pg (25.0-35.0); MCHC 33.1 g/dL (31.0-37.0); MCV 84.3 fL (80.0-100.0); Mean Platelet Volume 9.2; Monocytes # (A) 0.5 k/uL (0-1.0); Monocytes % (A) 4 %; Neutrophils # (A) 7.5 k/uL (1.3-7.7); Neutrophils % (A) 65 %; Platelet Count 229 k/uL (150-450); RBC 4.83 m/uL (3.80-5.40); RDW 15.8 % (11.5-15.5); WBC 11.7 k/uL (3.8-10.6)
[2019-02-21 18:47] LABS: ALT 30 U/L (9-52); AST 28 U/L (14-36); African American GFR (CKD) >90 (>60 ml/min/1.73 sqM); Albumin 3.1 g/dL (3.5-5.0); Alkaline Phosphatase 59 U/L (38-126); Anion Gap 8 mmol/L; Blood Urea Nitrogen 11 mg/dL (7-17); Calcium 8.6 mg/dL (8.4-10.2); Carbon Dioxide 21 mmol/L (22-30); Chloride 110 mmol/L (98-107); Glucose 91 mg/dL (74-99); Potassium 4.1 mmol/L (3.5-5.1); Sodium 139 mmol/L (137-145); Total Bilirubin 0.3 mg/dL (0.2-1.3); Total Protein 5.6 g/dL (6.3-8.2)
[2019-02-21 18:49] LABS: INR 0.9 (<1.2); Partial Thromboplastin Time 24.7 sec (22.0-30.0); Prothrombin Time 10.1 sec (9.0-12.0)
[2019-02-21 19:36] LABS: Amorphous Sediment,Urine Occasional /hpf; Appearance,Urine Cloudy (Clear); Bacteria,Urine Moderate /hpf; Bilirubin,Urine Negative (Negative); Blood,Urine Large (Negative); Color,Urine Yellow; Glucose,Urine (UA) Negative (Negative); Ketones,Urine Trace (Negative); Leukocyte Esterase,Urine Moderate (Negative); Mucus,Urine Few /hpf; Nitrite,Urine Negative (Negative); PH, Urine 5.5 (5.0-8.0); Protein,Urine 1+ (Negative); RBC,Urine 10 /hpf (0-5); Specific Gravity,Urine 1.023 (1.001-1.035); Squamous Epithelial Cell,Urine 4 /hpf (0-4); WBC,Urine 62 /hpf (0-5)
== END 2019-02-21 19:47 | disposition left against medical advice (07) ==
LOC: EC 18:04
DX: R55 Syncope and collapse (principal); K21.9 Gastro-esophageal reflux disease without esophagitis; F17.200 Nicotine dependence, unspecified, uncomplicated; Z87.820 Personal history of traumatic brain injury; Z79.899 Other long term (current) drug therapy; Z88.0 Allergy status to penicillin; Z88.2 Allergy status to sulfonamides; Z88.8 Allergy status to other drugs, medicaments and biological substances
CPT/HCPCS: 36415; 80053; 81001; 81025; 84443; 84484; 85025; 85610; 85730; 87077; 87086; 87186; 96360; 99284

== ENCOUNTER 2019-02-27 18:56 | Emergency (ER) | payer OTHER ==
[2019-02-27 19:14] VITALS: BP 96/70; PULSE 88; TEMP 98.8
[2019-02-27 19:17] VITALS: RESP 18
[2019-02-27 19:42] LABS: Appearance,Urine Clear (Clear); Bacteria,Urine Occasional /hpf; Bilirubin,Urine Negative (Negative); Blood,Urine Large (Negative); Color,Urine Yellow; Glucose,Urine (UA) Negative (Negative); Ketones,Urine Negative (Negative); Leukocyte Esterase,Urine Small (Negative); Mucus,Urine Occasional /hpf; Nitrite,Urine Negative (Negative); Protein,Urine Negative (Negative); RBC,Urine 2 /hpf (0-5); Specific Gravity,Urine 1.021 (1.001-1.035); Squamous Epithelial Cell,Urine 4 /hpf (0-4); Urobilinogen,Urine <2.0 mg/dL (<2.0); WBC,Urine 18 /hpf (0-5)
[2019-02-27] MEDS ORDERED: AZITHROMYCIN 500 MG TAB PO STA (19:56)
[2019-02-27] MEDS ORDERED: metroNIDAZOLE 500 MG TAB PO STA (19:57)
--- NOTE | 2019-02-27 20:37 | ED ---
General Adult HPI - General Chief complaint: Abdominal Pain Stated complaint: abd pain Time Seen by Provider: 02/27/19 19:19 Source: patient, RN notes reviewed Mode of arrival: ambulatory Limitations: no limitations - History of Present Illness Initial comments: 23-year-old female presents to the emergency department for a chief complaint of possible STD versus BV. Patient states that she is on an antibiotic Macrobid for her urinary tract infection that she started 2 days ago. States she now has itching consistent with bacterial vaginosis. States she also has a white discharge. Patient states she often has bacterial vaginosis. States she always needs Flagyl for this. Patient also would like to be tested for STDs. Denies any pelvic or abdominal pain despite triage note. Denies any fevers or chills.Patient has no other complaints at this time including shortness of breath, chest pain, abdominal pain, nausea or vomiting, headache, or visual changes. - Related Data Home Medications Medication Instructions Recorded Confirmed Cetirizine HCl [Zyrtec] 10 mg PO DAILY 10/25/18 02/03/19 Omeprazole [PriLOSEC] 20 mg PO DAILY 10/25/18 02/03/19 Polyethylene Glycol 3350 [Miralax] 17 gm PO DAILY 01/21/19 02/03/19 Previous Rx's Medication Instructions Recorded Ibuprofen [Motrin] 600 mg PO Q8HR PRN #30 tab 01/21/19 Nitrofurantoin Monohyd/M-Cryst 100 mg PO Q12HR #14 cap 02/21/19 [Macrobid] Fluconazole [Diflucan] 150 mg PO ONCE #1 tab 02/27/19 metroNIDAZOLE [Flagyl] 500 mg PO BID 7 Days tab 02/27/19 Allergies Allergy/AdvReac Type Severity Reaction Status Date / Time Penicillins Allergy Severe Anaphylaxis Verified 02/27/19 19:14 Sulfa (Sulfonamide Allergy Severe Anaphylaxis Verified 02/27/19 19:14 Antibiotics) diphenhydramine HCl Allergy Nausea Verified 02/27/19 19:14 [From Benadryl] Review of Systems ROS Statement: Those systems with pertinent positive or pertinent negative responses have been documented in the HPI. ROS Other: All systems not noted in ROS Statement are negative. 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 Past Psychological History: Anxiety, Bipolar, Depression, Panic Disorder, PTSD, Schizoaffective Disorder Smoking Status: Current every day smoker Past Alcohol Use History: None Reported Past Drug Use History: Marijuana - Past Family History Mother Family Medical History: No Reported History Father Family Medical History: No Reported History Additional Family Medical History / Comment(s): bipolar, sever seasonal allergies Brother(s) Family Medical History: No Reported History Sister(s) Family Medical History: No Reported History General Exam Limitations: no limitations General appearance: alert, in no apparent distress Head exam: Present: atraumatic, normocephalic, normal inspection Eye exam: Present: normal appearance, PERRL, EOMI. Absent: scleral icterus, conjunctival injection, periorbital swelling ENT exam: Present: normal exam, mucous membranes moist Neck exam: Present: normal inspection, full ROM. Absent: tenderness, meningismus, lymphadenopathy Respiratory exam: Present: normal lung sounds bilaterally. Absent: respiratory distress, wheezes, rales, rhonchi, stridor Cardiovascular Exam: Present: regular rate, normal rhythm, normal heart sounds. Absent: systolic murmur, diastolic murmur, rubs, gallop, clicks GI/Abdominal exam: Present: soft, normal bowel sounds. Absent: distended, tenderness, guarding, rebound, rigid External exam: Present: normal external exam. Absent: erythema, swelling, lesions, lacerations, ecchymosis Speculum exam: Present: normal speculum exam. Absent: erythema, vaginal discha rge (No discharge noted), cervical discharge, vaginal bleeding, foreign body, tissue, laceration By manual exam: Present: normal by manual exam. Absent: cervical motion tende rness, adnexal tenderness, adnexal mass, uterine enlargement, uterine tenderness Neurological exam: Present: alert Psychiatric exam: Present: normal affect, normal mood Course Vital Signs 08/08/19 19:12 Temperature 98.8 F Pulse Rate 88 Respiratory 18 Rate Blood Pressure 96/70 O2 Sat by Pulse 100 Oximetry Medical Decision Making - Medical Decision Making 23-year-old female presents to the emergency department for a chief complaint of vaginal itching and discharge consistent with her previous episodes of bacterial vaginosis. States these have occurred for the past 2 days. Patient also concern for STDs. Patient is currently taking Macrobid for urinary tract infection that she began 2 days ago. Denies any abdominal pain back pain or fevers. On exam patient does not have any abdominal tenderness. Speculum exam is unremarkable, no discharge noted. No pelvic tenderness. Negative chandelier sign. However patient wishes to be treated for STDs. Patient will be given azithromycin to treat for Chlamydia. However she has an anaphylactic ALLERGY to penicillins so we will wait to see if she has a positive gonorrhea to treat her with Rocephin. Patient will be treated with Flagyl for her BV. She will be also given a dose of Diflucan as she has itching after antibiotic and menstruation so this could be related to yeast infection. She will follow up with culture results and return if she has any worsening symptoms. Discussed safe sex practices. - Lab Data Lab Results 02/27/19 02/27/19 Range/Units 19:15 19:15 Urine Color Yellow Urine Appearance Clear (Clear) Urine pH 6.0 (5.0-8.0) Ur Specific [place] 1.021 (1.001-1.035) Urine Protein Negative (Negative) Urine Glucose (UA) Negative (Negative) Urine Ketones Negative (Negative) Urine Blood Large H (Negative) Urine Nitrite Negative (Negative) Urine Bilirubin Negative (Negative) Urine Urobilinogen <2.0 (<2.0) mg/dL Ur Leukocyte Esterase Small H (Negative) Urine RBC 2 (0-5) /hpf Urine WBC 18 H (0-5) /hpf Ur Squamous Epith Cells 4 (0-4) /hpf Urine Bacteria Occasional H (None) /hpf Urine Mucus Occasional H (None) /hpf Urine HCG, Qual Not Detected (Not Detectd) Disposition Clinical Impression: Vaginal discharge Disposition: HOME SELF-CARE Condition: Good Instructions (If sedation given, give patient instructions): Vaginal Discharge (ED) Additional Instructions: Please take antibiotic as directed. Please follow-up with primary care or OBGYN in 1-2 days. Please return here to the emergency department if you have any worsening symptoms. Prescriptions: Fluconazole [Diflucan] 150 mg PO ONCE #1 tab metroNIDAZOLE [Flagyl] 500 mg PO BID 7 Days tab Is patient prescribed a controlled substance at d/c from ED?: No Referrals: Lauren Denson MD [Primary Care Provider] - 1-2 days Time of Disposition: 20:36
[2019-03-01 08:36] LABS: N. gonorrhoeae,PCR Negative (Neg,Equiv); Neisseria Source Urine
[2019-03-01 08:40] LABS: C. trachomatis,PCR Negative (Neg,Equiv); Chlamydia trachomatis Source Urine
== END 2019-02-27 20:47 | disposition home or self-care (01) ==
LOC: EC 18:56
DX: N89.8 Other specified noninflammatory disorders of vagina (principal); N39.0 Urinary tract infection, site not specified; Z32.02 Encounter for pregnancy test, result negative; K21.9 Gastro-esophageal reflux disease without esophagitis; F17.200 Nicotine dependence, unspecified, uncomplicated; Z79.899 Other long term (current) drug therapy; Z88.0 Allergy status to penicillin; Z88.2 Allergy status to sulfonamides; Z88.8 Allergy status to other drugs, medicaments and biological substances
CPT/HCPCS: 81001; 81025; 87086; 87491; 87591; 87808; 99284

== ENCOUNTER 2019-04-02 16:08 | Emergency (ER) | payer OTHER ==
[2019-04-02 16:17] VITALS: BP 113/67; PULSE 99; RESP 18; TEMP 98.7
[2019-04-02] MEDS ORDERED: ETODOLAC 400 MG TAB PO STA (16:46)
--- NOTE | 2019-04-02 16:55 | ED ---
Back Pain HPI - General Chief Complaint: Back Pain/Injury Stated Complaint: Back Pain Time Seen by Provider: 04/02/19 16:11 Source: patient, EMS - History of Present Illness Initial Comments: Patient is a 24-year-old female presenting to the emergency department via EMS with back pain. Patient has history of chronic back pain secondary to scoliosis. Patient denies any recent falls or trauma to her back. Patient states she has been taking Tylenol or Motrin without relief of pain. And had imaging on her back approximately 2 months ago. Patient denies any numbness and tingling into her lower extremities, saddle paresthesia, trouble with urination or bowel movements. Denies fever, chills. Upon arrival to ER, vital signs are stable. - Related Data Home Medications Medication Instructions Recorded Confirmed Cetirizine HCl [Zyrtec] 10 mg PO DAILY 10/25/18 02/03/19 Omeprazole [PriLOSEC] 20 mg PO DAILY 10/25/18 02/03/19 Polyethylene Glycol 3350 [Miralax] 17 gm PO DAILY 01/21/19 02/03/19 Previous Rx's Medication Instructions Recorded Ibuprofen [Motrin] 600 mg PO Q8HR PRN #30 tab 01/21/19 Nitrofurantoin Monohyd/M-Cryst 100 mg PO Q12HR #14 cap 02/21/19 [Macrobid] Fluconazole [Diflucan] 150 mg PO ONCE #1 tab 02/27/19 metroNIDAZOLE [Flagyl] 500 mg PO BID 7 Days tab 02/27/19 Ibuprofen [Motrin] 600 mg PO Q8HR PRN #20 tab 04/02/19 Allergies Allergy/AdvReac Type Severity Reaction Status Date / Time Penicillins Allergy Severe Anaphylaxis Verified 04/02/19 16:14 Sulfa (Sulfonamide Allergy Severe Anaphylaxis Verified 04/02/19 16:14 Antibiotics) diphenhydramine HCl Allergy Nausea Verified 04/02/19 16:14 [From Benadryl] Review of Systems ROS Statement: Those systems with pertinent positive or pertinent negative responses have been documented in the HPI. ROS Other: All systems not noted in ROS Statement are negative. 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 Past Psychological History: Anxiety, Bipolar, Depression, Panic Disorder, PTSD, Schizoaffective Disorder Smoking Status: Current every day smoker Past Alcohol Use History: None Reported Past Drug Use History: Marijuana - Past Family History Mother Family Medical History: No Reported History Father Family Medical History: No Reported History Additional Family Medical History / Comment(s): bipolar, sever seasonal allergies Brother(s) Family Medical History: No Reported History Sister(s) Family Medical History: No Reported History General Exam - General Exam Comments Initial Comments: GENERAL: Well-appearing, well-nourished and in no acute distress. HEAD: Atraumatic, normocephalic. EYES: Pupils equal round and reactive to light, extraocular movements intact, sclera anicteric, conjunctiva are normal. ENT: TMs normal, nares patent, oropharynx clear without exudates. Moist mucous membranes. NECK: Normal range of motion, supple without lymphadenopathy or JVD. LUNGS: Breath sounds clear to auscultation bilaterally and equal. No wheezes rales or rhonchi. HEART: Regular rate and rhythm without murmurs, rubs or gallops. ABDOMEN: Soft, nontender, normoactive bowel sounds. No guarding, no rebound. No masses appreciated. : Deferred EXTREMITIES: Normal range of motion, no pitting or edema. No clubbing or cyanosis. Patient has pain along the thoracic paraspinals. Patient has full trunk range of motion. Patient is neurovascular intact. Patient is 5 out of 5 lower and upper extremity strength. NEUROLOGICAL: Cranial nerves II through XII grossly intact. Normal speech, normal gait. PSYCH: Normal mood, normal affect. SKIN: Warm, Dry, normal turgor, no rashes or lesions noted. Course Vital Signs 04/02/19 16:11 Temperature 98.7 F Pulse Rate 99 Respiratory 18 Rate Blood Pressure 113/67 O2 Sat by Pulse 97 Oximetry Medical Decision Making - Medical Decision Making She is a 24-year-old female presenting with back pain has been ongoing for 2 months. Patient denies any recent trauma or falls. Patient had recent imaging performed that shows scoliosis. On exam patient has pain and thoracic paraspinals. Patient has full trunk range of motion. Patient has no signs of infection. Patient was seen walking around the ER pain-free going to the restroom. Patient was given an oral Toradol and will be stable for discharge. Return parameters were discussed with the patient she verbalized understanding. Case discussed with Dr. Mendoza. Disposition Clinical Impression: Thoracic back pain, Scoliosis Disposition: HOME SELF-CARE Condition: Stable Instructions (If sedation given, give patient instructions): Back Pain (ED) Additional Instructions: Please return to the Emergency Department if symptoms worsen or any other concerns. Follow-up with PCP or neurologist as discussed. Prescriptions: Ibuprofen [Motrin] 600 mg PO Q8HR PRN #20 tab PRN Reason: Pain Is patient prescribed a controlled substance at d/c from ED?: No Referrals: Lauren Denson MD [Primary Care Provider] - 1-2 days
== END 2019-04-02 17:10 | disposition home or self-care (01) ==
LOC: EC 16:08
DX: M54.6 Pain in thoracic spine (principal); G89.29 Other chronic pain; M41.9 Scoliosis, unspecified; K21.9 Gastro-esophageal reflux disease without esophagitis; F17.200 Nicotine dependence, unspecified, uncomplicated; Z79.899 Other long term (current) drug therapy; Z88.0 Allergy status to penicillin; Z88.2 Allergy status to sulfonamides; Z88.8 Allergy status to other drugs, medicaments and biological substances; Z87.820 Personal history of traumatic brain injury
CPT/HCPCS: 99283

== ENCOUNTER 2019-04-08 15:44 | Emergency (ER) | payer OTHER ==
[2019-04-08 15:57] VITALS: BP 112/79; PULSE 109; RESP 18; TEMP 98.1
--- NOTE | 2019-04-08 16:45 | ED ---
Female Urogenital HPI - General Chief complaint: Vaginal Bleeding Stated complaint: FEMALE BLEEDING OVER A MONTH Time Seen by Provider: 04/08/19 16:32 Source: patient Mode of arrival: ambulatory Limitations: no limitations - History of Present Illness Initial comments: 24-year-old female with history of STI's presents emergency department for evaluation of vaginal bleeding times one month. Patient states she is she gets Depo-Provera shot however she has not had one" quite some time cannot recall the last time she had had the shot. Patient states she has had multiple negative presents to test at home but has had light bleeding for the past month c onsistently. Patient states at times is brown. Patient denies any specific orders denies any heavy vaginal discharge. Patient states she has not current breast the eye at this time. Patient states she does have some lower pelvic cramping sensation. That times radiates towards the back. Patient denies any right lower quadrant tenderness of the abdomen denies any fevers or decrease in appetite. Patient denies any nausea vomiting or diarrhea. Remaining review systems negative. Upon arrival patient appears well-nourished signs of acute distress. Patient denies any dizziness lightheaded sensation or pallor. - Related Data Home Medications Medication Instructions Recorded Confirmed Cetirizine HCl [Zyrtec] 10 mg PO DAILY 10/25/18 04/08/19 Omeprazole [PriLOSEC] 20 mg PO DAILY 10/25/18 04/08/19 Polyethylene Glycol 3350 [Miralax] 17 gm PO DAILY 01/21/19 04/08/19 Previous Rx's Medication Instructions Recorded Ibuprofen [Motrin] 600 mg PO Q8HR PRN #20 tab 04/02/19 Allergies Allergy/AdvReac Type Severity Reaction Status Date / Time Penicillins Allergy Severe Anaphylaxis Verified 04/08/19 16:59 Sulfa (Sulfonamide Allergy Severe Anaphylaxis Verified 04/08/19 16:59 Antibiotics) diphenhydramine HCl Allergy Nausea Verified 04/08/19 16:59 [From Benadryl] Review of Systems ROS Statement: Those systems with pertinent positive or pertinent negative responses have been documented in the HPI. ROS Other: All systems not noted in ROS Statement are negative. 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 Past Psychological History: Anxiety, Bipolar, Depression, Panic Disorder, PTSD, Schizoaffective Disorder Smoking Status: Current every day smoker Past Alcohol Use History: None Reported Past Drug Use History: Marijuana - Past Family History Mother Family Medical History: No Reported History Father Family Medical History: No Reported History Additional Family Medical History / Comment(s): bipolar, sever seasonal allergies Brother(s) Family Medical History: No Reported History Sister(s) Family Medical History: No Reported History General Exam - General Exam Comments Initial Comments: General: The patient is awake and alert, in no distress, and does not appear acutely ill. Eye: Pupils are equal, round and reactive to light, extra-ocular movements are intact. No nystagmus. There is normal conjunctiva bilaterally. No signs of icterus. Cardiovascular: There is a regular rate and rhythm. No murmur, rub or gallop is appreciated. Respiratory: Lungs are clear to auscultation, respirations are non-labored, breath sounds are equal. No wheezes, stridor, rales, or rhonchi. Gastrointestinal: Soft, non-distended, non-tender abdomen without masses or organomegaly noted. There is no rebound or guarding present. Back exam revealed no external lesions. Vaginal mucosa pink well rugated. Scant amount discharge/brown blood in vault no odor. No adnexal or cervical motion tenderness. No chandelier sign. Musculoskeletal: Normal ROM, no tenderness. Strength 5/5. Sensation intact. Pulses equal bilaterally 2+. Neurological: A&O x 3. CN II-XII intact, There are no obvious motor or sensory deficits. Coordination appears grossly intact. Speech is normal. Skin: Skin is warm and dry and no rashes or lesions are noted. Psychiatric: Cooperative, appropriate mood & affect, normal judgment. Limitations: no limitations Course Vital Signs 04/08/19 15:56 Temperature 98.1 F Pulse Rate 109 H Respiratory 18 Rate Blood Pressure 112/79 O2 Sat by Pulse 98 Oximetry Medical Decision Making - Medical Decision Making 34-year-old female presenting for vaginal bleeding cramping. Ultrasound unremarkable. No acute process. Hemoglobin stable vital signs within acceptable limits. Patient does not appear toxic. Patient has no pallor or pale mucous membranes. Pelvic unremarkable aside from a scant amount of discharge and brown blood, no adnexal or cervical motion tenderness. At this time feel patient stay for discharge patient left prior to discharge instruction paperwork. She states she was ready to go home. STI testing pending. - Lab Data Result diagrams: 04/08/19 17:10 04/08/19 17:10 Lab Results 04/08/19 04/08/19 04/08/19 Range/Units 17:00 17:00 17:10 WBC 11.5 H (3.8-10.6) k/uL RBC 4.62 (3.80-5.40) m/uL Hgb 12.8 (11.4-16.0) gm/dL Hct 37.8 (34.0-46.0) % MCV 81.7 (80.0-100.0) fL MCH 27.6 (25.0-35.0) pg MCHC 33.8 (31.0-37.0) g/dL RDW 15.0 (11.5-15.5) % Plt Count 239 (150-450) k/uL Neutrophils % 73 % Lymphocytes % 21 % Monocytes % 4 % Eosinophils % 1 % Basophils % 0 % Neutrophils # 8.4 H (1.3-7.7) k/uL Lymphocytes # 2.4 (1.0-4.8) k/uL Monocytes # 0.4 (0-1.0) k/uL Eosinophils # 0.1 (0-0.7) k/uL Basophils # 0.0 (0-0.2) k/uL Sodium (137-145) mmol/L Potassium (3.5-5.1) mmol/L Chloride (98-107) mmol/L Carbon Dioxide (22-30) mmol/L Anion Gap mmol/L BUN (7-17) mg/dL Creatinine (0.52-1.04) mg/dL Est GFR (CKD-EPI)AfAm (>60 ml/min/1.73 sqM) Est GFR (CKD-EPI)NonAf (>60 ml/min/1.73 sqM) Glucose (74-99) mg/dL Calcium (8.4-10.2) mg/dL Total Bilirubin (0.2-1.3) mg/dL AST (14-36) U/L ALT (9-52) U/L Alkaline Phosphatase (38-126) U/L Total Protein (6.3-8.2) g/dL Albumin (3.5-5.0) g/dL Urine Color Yellow Urine Appearance Clear (Clear) Urine pH 6.0 (5.0-8.0) Ur Specific [place] 1.015 (1.001-1.035) Urine Protein Negative (Negative) Urine Glucose (UA) Negative (Negative) Urine Ketones Negative (Negative) Urine Blood Negative (Negative) Urine Nitrite Negative (Negative) Urine Bilirubin Negative (Negative) Urine Urobilinogen <2.0 (<2.0) mg/dL Ur Leukocyte Esterase Negative (Negative) Urine HCG, Qual Not Detected (Not Detectd) Trichomonas Ag (Rapid) (Negative) 04/08/19 04/08/19 Range/Units 17:10 18:48 WBC (3.8-10.6) k/uL RBC (3.80-5.40) m/uL Hgb (11.4-16.0) gm/dL Hct (34.0-46.0) % MCV (80.0-100.0) fL MCH (25.0-35.0) pg MCHC (31.0-37.0) g/dL RDW (11.5-15.5) % Plt Count (150-450) k/uL Neutrophils % % Lymphocytes % % Monocytes % % Eosinophils % % Basophils % % Neutrophils # (1.3-7.7) k/uL Lymphocytes # (1.0-4.8) k/uL Monocytes # (0-1.0) k/uL Eosinophils # (0-0.7) k/uL Basophils # (0-0.2) k/uL Sodium 140 (137-145) mmol/L Potassium 3.8 (3.5-5.1) mmol/L Chloride 106 (98-107) mmol/L Carbon Dioxide 23 (22-30) mmol/L Anion Gap 11 mmol/L BUN 10 (7-17) mg/dL Creatinine 0.72 (0.52-1.04) mg/dL Est GFR (CKD-EPI)AfAm >90 (>60 ml/min/1.73 sqM) Est GFR (CKD-EPI)NonAf >90 (>60 ml/min/1.73 sqM) Glucose 91 (74-99) mg/dL Calcium 9.7 (8.4-10.2) mg/dL Total Bilirubin 0.3 (0.2-1.3) mg/dL AST 24 (14-36) U/L ALT 40 (9-52) U/L Alkaline Phosphatase 79 (38-126) U/L Total Protein 7.2 (6.3-8.2) g/dL Albumin 4.2 (3.5-5.0) g/dL Urine Color Urine Appearance (Clear) Urine pH (5.0-8.0) Ur Specific [place] (1.001-1.035) Urine Protein (Negative) Urine Glucose (UA) (Negative) Urine Ketones (Negative) Urine Blood (Negative) Urine Nitrite (Negative) Urine Bilirubin (Negative) Urine Urobilinogen (<2.0) mg/dL Ur Leukocyte Esterase (Negative) Urine HCG, Qual (Not Detectd) Trichomonas Ag (Rapid) Negative (Negative) Disposition Clinical Impression: Vaginal bleeding Disposition: HOME SELF-CARE Condition: Good Instructions (If sedation given, give patient instructions): Dysfunctional Uterine Bleeding (ED) Additional Instructions: Please use medication as discussed. Please follow-up with OBGYN in next 1-2 weeks. Please return to emergency room if the symptoms increase or worsen or for any other concerns. Is patient prescribed a controlled substance at d/c from ED?: No Referrals: Lauren Denson MD [Primary Care Provider] - 1-2 days Time of Disposition: 20:31
[2019-04-08 17:17] LABS: Appearance,Urine Clear (Clear); Bilirubin,Urine Negative (Negative); Blood,Urine Negative (Negative); Color,Urine Yellow; Glucose,Urine (UA) Negative (Negative); Ketones,Urine Negative (Negative); Leukocyte Esterase,Urine Negative (Negative); Nitrite,Urine Negative (Negative); Protein,Urine Negative (Negative); Specific Gravity,Urine 1.015 (1.001-1.035); Urobilinogen,Urine <2.0 mg/dL (<2.0)
[2019-04-08 17:40] LABS: Basophils % (A) 0 %; Eosinophils # (A) 0.1 k/uL (0-0.7); Eosinophils % (A) 1 %; HCT 37.8 % (34.0-46.0); HGB 12.8 gm/dL (11.4-16.0); Lymphocytes # (A) 2.4 k/uL (1.0-4.8); Lymphocytes % (A) 21 %; MCH 27.6 pg (25.0-35.0); MCHC 33.8 g/dL (31.0-37.0); MCV 81.7 fL (80.0-100.0); Mean Platelet Volume 7.9; Monocytes # (A) 0.4 k/uL (0-1.0); Monocytes % (A) 4 %; Neutrophils # (A) 8.4 k/uL (1.3-7.7); Neutrophils % (A) 73 %; Platelet Count 239 k/uL (150-450); RBC 4.62 m/uL (3.80-5.40); WBC 11.5 k/uL (3.8-10.6)
[2019-04-08 17:52] LABS: ALT 40 U/L (9-52); AST 24 U/L (14-36); African American GFR (CKD) >90 (>60 ml/min/1.73 sqM); Albumin 4.2 g/dL (3.5-5.0); Alkaline Phosphatase 79 U/L (38-126); Anion Gap 11 mmol/L; Blood Urea Nitrogen 10 mg/dL (7-17); Calcium 9.7 mg/dL (8.4-10.2); Carbon Dioxide 23 mmol/L (22-30); Chloride 106 mmol/L (98-107); Glucose 91 mg/dL (74-99); Potassium 3.8 mmol/L (3.5-5.1); Sodium 140 mmol/L (137-145); Total Bilirubin 0.3 mg/dL (0.2-1.3); Total Protein 7.2 g/dL (6.3-8.2)
--- NOTE | 2019-04-08 18:00 | US ---
EXAMINATION TYPE: US transvaginal DATE OF EXAM: 04/08/2019 COMPARISON: Multiple CT's & US's CLINICAL HISTORY: pelvic pain. Patient states she has been on cycle for one month TECHNIQUE: Transvaginal (TV Date of LMP: end january and still on EXAM MEASUREMENTS: Uterus: 7.1 x 2.7 x 3.7 cm Endometrial Stripe: 0.6 cm Right Ovary: 3.2 x 2.5 x 2.5 cm Left Ovary: 3.0 x 2.5 x 3.5 cm 1. Uterus: Anteverted wnl 2. Endometrium: measures 0.6 cm, patient on cycle for one month 3. Right Ovary: wnl 4. Left Ovary: wnl Spectral, color and waveform doppler imaging shows good arterial and venous flow within the ovaries ; there is no evidence for ovarian torsion. 5. Bilateral Adnexa: wnl 6. Posterior cul-de-sac: no free fluid IMPRESSION: Normal transvaginal pelvic sonogram. No evidence of ovarian torsion.
[2019-04-09 16:03] LABS: C. trachomatis,PCR Negative (Neg,Equiv); Chlamydia trachomatis Source Vagina; N. gonorrhoeae,PCR Negative (Neg,Equiv); Neisseria Source Vagina
== END 2019-04-08 18:55 | disposition home or self-care (01) ==
LOC: EC 15:44
DX: N93.9 Abnormal uterine and vaginal bleeding, unspecified (principal); R10.2 Pelvic and perineal pain; K21.9 Gastro-esophageal reflux disease without esophagitis; F17.200 Nicotine dependence, unspecified, uncomplicated; Z79.3 Long term (current) use of hormonal contraceptives; Z79.899 Other long term (current) drug therapy; Z88.0 Allergy status to penicillin; Z88.2 Allergy status to sulfonamides; Z88.8 Allergy status to other drugs, medicaments and biological substances
CPT/HCPCS: 36415; 76830; 80053; 81003; 81025; 85025; 87070; 87491; 87591; 87808; 99284

== ENCOUNTER 2019-04-14 06:54 | Emergency (ER) | payer OTHER ==
[2019-04-14 07:10] VITALS: BP 117/85; PULSE 99; RESP 18; TEMP 97.9
[2019-04-14] MEDS ORDERED: KETOROLAC 30 MG/ML 1 ML VIAL IVP STA (07:12)
[2019-04-14] MEDS ORDERED: diphenhydrAMINE 50 MG/ML 1 ML VIAL IVP STA (07:12)
[2019-04-14] MEDS ORDERED: METOCLOPRAMIDE 5 MG/ML 2 ML VIAL IVP STA (07:12)
[2019-04-14] MEDS ORDERED: SODIUM CHLORIDE 0.9% 1,000 ML IV STA (07:12)
--- NOTE | 2019-04-14 07:17 | ED ---
General Adult HPI - General Chief complaint: Headache Stated complaint: nausea/vomiting Time Seen by Provider: 04/14/19 06:56 Source: patient, EMS, RN notes reviewed, old records reviewed Mode of arrival: EMS Limitations: no limitations - History of Present Illness Initial comments: Patient is a 24-year-old female, she presents emergency department today to get a migraine headache. Symptoms started this morning which woke up. She reports she's had some symptoms of vomiting. She noticed that when she is vomiting she did have a small amount of blood tinge noted to the emesis. Patient states that she's had no recent fevers or chills. She complains of epigastric abdominal pain as well. Patient took some Tylenol without relief of her headache. Patient denies any other significant complaints. - Related Data Home Medications Medication Instructions Recorded Confirmed Paliperidone IM [Invega Sustenna] 234 mg IM QMONTH 04/14/19 04/14/19 QUEtiapine [SEROquel] 100 mg PO HS 04/14/19 04/14/19 buPROPion HCL [Wellbutrin XL] 300 mg PO DAILY 04/14/19 04/14/19 Previous Rx's Medication Instructions Recorded Ondansetron Odt [Zofran Odt] 4 mg PO Q8HR PRN #12 tab 04/14/19 Allergies Allergy/AdvReac Type Severity Reaction Status Date / Time Penicillins Allergy Severe Anaphylaxis Verified 04/14/19 07:11 Sulfa (Sulfonamide Allergy Severe Anaphylaxis Verified 04/14/19 07:11 Antibiotics) diphenhydramine HCl Allergy Nausea Verified 04/14/19 07:11 [From Benadryl] Review of Systems ROS Statement: Those systems with pertinent positive or pertinent negative responses have been documented in the HPI. ROS Other: All systems not noted in ROS Statement are negative. 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 Past Psychological History: Anxiety, Bipolar, Depression, Panic Disorder, PTSD, Schizoaffective Disorder Smoking Status: Current every day smoker Past Alcohol Use History: None Reported Past Drug Use History: Marijuana - Past Family History Mother Family Medical History: No Reported History Father Family Medical History: No Reported History Additional Family Medical History / Comment(s): bipolar, sever seasonal allergies Brother(s) Family Medical History: No Reported History Sister(s) Family Medical History: No Reported History General Exam - General Exam Comments Initial Comments: Patient is a 24-year-old female. Alert and oriented 3. Patient appears in no significant distress. Limitations: no limitations General appearance: alert, in no apparent distress Head exam: Present: atraumatic Eye exam: Present: normal appearance, PERRL, EOMI. Absent: scleral icterus, conjunctival injection, periorbital swelling ENT exam: Present: normal exam, mucous membranes moist Neck exam: Present: normal inspection. Absent: tenderness, meningismus, lymphadenopathy Respiratory exam: Present: normal lung sounds bilaterally. Absent: respiratory distress, wheezes, rales, rhonchi, stridor Cardiovascular Exam: Present: regular rate, normal rhythm, normal heart sounds. Absent: systolic murmur, diastolic murmur, rubs, gallop, clicks GI/Abdominal exam: Present: soft, tenderness (epigastric), normal bowel sounds. Absent: distended, guarding, rebound, rigid Back exam: Present: normal inspection Neurological exam: Present: alert, oriented X3, CN II-XII intact Psychiatric exam: Present: normal affect, normal mood Skin exam: Present: warm, dry, intact, normal color. Absent: rash Course Vital Signs 04/14/19 07:02 Temperature 97.9 F Pulse Rate 99 Respiratory 18 Rate Blood Pressure 117/85 O2 Sat by Pulse 97 Oximetry Medical Decision Making - Medical Decision Making Patient is a 24-year-old female presents today with migraine-like headache, nausea. Patient arrived via EMS. Patient reports that she did have an emesis episode..This suggests thats he has some blood-tinged sputum. This time she has some minimal epigastric tenderness. Otherwise no significant physical exam findings or neurological deficits. She is given migraine cocktail. She states is like her previous migraines. She does report that she has relief and wants to be discharged home. Lab work was reviewed and unremarkable. Discussed the Patient up with her primary care physician. Questions were answered return parameters were discussed. - Lab Data Result diagrams: 04/14/19 08:30 04/14/19 08:30 Lab Results 04/14/19 04/14/19 04/14/19 Range/Units 08:25 08:25 08:30 WBC 9.8 (3.8-10.6) k/uL RBC 4.53 (3.80-5.40) m/uL Hgb 12.6 (11.4-16.0) gm/dL Hct 37.1 (34.0-46.0) % MCV 81.8 (80.0-100.0) fL MCH 27.9 (25.0-35.0) pg MCHC 34.1 (31.0-37.0) g/dL RDW 16.7 H (11.5-15.5) % Plt Count 245 (150-450) k/uL Neutrophils % 77 % Lymphocytes % 17 % Monocytes % 3 % Eosinophils % 1 % Basophils % 0 % Neutrophils # 7.5 (1.3-7.7) k/uL Lymphocytes # 1.6 (1.0-4.8) k/uL Monocytes # 0.3 (0-1.0) k/uL Eosinophils # 0.1 (0-0.7) k/uL Basophils # 0.0 (0-0.2) k/uL Anisocytosis Slight PT (9.0-12.0) sec INR (<1.2) APTT (22.0-30.0) sec Sodium (137-145) mmol/L Potassium (3.5-5.1) mmol/L Chloride (98-107) mmol/L Carbon Dioxide (22-30) mmol/L Anion Gap mmol/L BUN (7-17) mg/dL Creatinine (0.52-1.04) mg/dL Est GFR (CKD-EPI)AfAm (>60 ml/min/1.73 sqM) Est GFR (CKD-EPI)NonAf (>60 ml/min/1.73 sqM) Glucose (74-99) mg/dL Calcium (8.4-10.2) mg/dL Total Bilirubin (0.2-1.3) mg/dL AST (14-36) U/L ALT (9-52) U/L Alkaline Phosphatase (38-126) U/L Total Protein (6.3-8.2) g/dL Albumin (3.5-5.0) g/dL Urine Color Light Yellow Urine Appearance Clear (Clear) Urine pH 7.0 (5.0-8.0) Ur Specific [place] 1.005 (1.001-1.035) Urine Protein Negative (Negative) Urine Glucose (UA) Negative (Negative) Urine Ketones Negative (Negative) Urine Blood Moderate H (Negative) Urine Nitrite Negative (Negative) Urine Bilirubin Negative (Negative) Urine Urobilinogen <2.0 (<2.0) mg/dL Ur Leukocyte Esterase Small H (Negative) Urine RBC 1 (0-5) /hpf Urine WBC 4 (0-5) /hpf Ur Squamous Epith Cells 3 (0-4) /hpf Urine Bacteria Rare H (None) /hpf Urine HCG, Qual Not Detected (Not Detectd) 04/14/19 04/14/19 Range/Units 08:30 08:30 WBC (3.8-10.6) k/uL RBC (3.80-5.40) m/uL Hgb (11.4-16.0) gm/dL Hct (34.0-46.0) % MCV (80.0-100.0) fL MCH (25.0-35.0) pg MCHC (31.0-37.0) g/dL RDW (11.5-15.5) % Plt Count (150-450) k/uL Neutrophils % % Lymphocytes % % Monocytes % % Eosinophils % % Basophils % % Neutrophils # (1.3-7.7) k/uL Lymphocytes # (1.0-4.8) k/uL Monocytes # (0-1.0) k/uL Eosinophils # (0-0.7) k/uL Basophils # (0-0.2) k/uL Anisocytosis PT 10.2 (9.0-12.0) sec INR 0.9 (<1.2) APTT 26.5 (22.0-30.0) sec Sodium 140 (137-145) mmol/L Potassium 4.8 (3.5-5.1) mmol/L Chloride 108 H (98-107) mmol/L Carbon Dioxide 23 (22-30) mmol/L Anion Gap 9 mmol/L BUN 8 (7-17) mg/dL Creatinine 0.61 (0.52-1.04) mg/dL Est GFR (CKD-EPI)AfAm >90 (>60 ml/min/1.73 sqM) Est GFR (CKD-EPI)NonAf >90 (>60 ml/min/1.73 sqM) Glucose 94 (74-99) mg/dL Calcium 9.3 (8.4-10.2) mg/dL Total Bilirubin 0.7 (0.2-1.3) mg/dL AST 40 H (14-36) U/L ALT 28 (9-52) U/L Alkaline Phosphatase 74 (38-126) U/L Total Protein 7.2 (6.3-8.2) g/dL Albumin 4.0 (3.5-5.0) g/dL Urine Color Urine Appearance (Clear) Urine pH (5.0-8.0) Ur Specific [place] (1.001-1.035) Urine Protein (Negative) Urine Glucose (UA) (Negative) Urine Ketones (Negative) Urine Blood (Negative) Urine Nitrite (Negative) Urine Bilirubin (Negative) Urine Urobilinogen (<2.0) mg/dL Ur Leukocyte Esterase (Negative) Urine RBC (0-5) /hpf Urine WBC (0-5) /hpf Ur Squamous Epith Cells (0-4) /hpf Urine Bacteria (None) /hpf Urine HCG, Qual (Not Detectd) Disposition Clinical Impression: Migraine, Nausea & vomiting Disposition: HOME SELF-CARE Condition: Good Instructions (If sedation given, give patient instructions): Acute Headache (ED) Additional Instructions: Patient should follow-up with her primary care doctor. Drink plenty of fluids. Use nausea medicine as discussed. Return to emergency department if any alarming signs or symptoms occur. Prescriptions: Ondansetron Odt [Zofran Odt] 4 mg PO Q8HR PRN #12 tab PRN Reason: Nausea Is patient prescribed a controlled substance at d/c from ED?: No Referrals: Lauren Denson MD [Primary Care Provider] - 1-2 days Time of Disposition: 09:27
[2019-04-14 08:48] LABS: Anisocytosis Slight; Basophils % (A) 0 %; Eosinophils # (A) 0.1 k/uL (0-0.7); Eosinophils % (A) 1 %; HCT 37.1 % (34.0-46.0); HGB 12.6 gm/dL (11.4-16.0); Lymphocytes # (A) 1.6 k/uL (1.0-4.8); Lymphocytes % (A) 17 %; MCH 27.9 pg (25.0-35.0); MCHC 34.1 g/dL (31.0-37.0); MCV 81.8 fL (80.0-100.0); Mean Platelet Volume 8.6; Monocytes # (A) 0.3 k/uL (0-1.0); Monocytes % (A) 3 %; Neutrophils # (A) 7.5 k/uL (1.3-7.7); Neutrophils % (A) 77 %; Platelet Count 245 k/uL (150-450); RBC 4.53 m/uL (3.80-5.40); RDW 16.7 % (11.5-15.5); WBC 9.8 k/uL (3.8-10.6)
[2019-04-14 08:50] LABS: Appearance,Urine Clear (Clear); Bacteria,Urine Rare /hpf; Bilirubin,Urine Negative (Negative); Blood,Urine Moderate (Negative); Color,Urine Light Yellow; Glucose,Urine (UA) Negative (Negative); Ketones,Urine Negative (Negative); Leukocyte Esterase,Urine Small (Negative); Nitrite,Urine Negative (Negative); Protein,Urine Negative (Negative); RBC,Urine 1 /hpf (0-5); Specific Gravity,Urine 1.005 (1.001-1.035); Squamous Epithelial Cell,Urine 3 /hpf (0-4); Urobilinogen,Urine <2.0 mg/dL (<2.0); WBC,Urine 4 /hpf (0-5)
[2019-04-14 08:59] LABS: ALT 28 U/L (9-52); AST 40 U/L (14-36); African American GFR (CKD) >90 (>60 ml/min/1.73 sqM); Alkaline Phosphatase 74 U/L (38-126); Anion Gap 9 mmol/L; Blood Urea Nitrogen 8 mg/dL (7-17); Calcium 9.3 mg/dL (8.4-10.2); Carbon Dioxide 23 mmol/L (22-30); Chloride 108 mmol/L (98-107); Glucose 94 mg/dL (74-99); Sodium 140 mmol/L (137-145); Total Bilirubin 0.7 mg/dL (0.2-1.3); Total Protein 7.2 g/dL (6.3-8.2)
[2019-04-14 09:03] LABS: INR 0.9 (<1.2); Partial Thromboplastin Time 26.5 sec (22.0-30.0); Prothrombin Time 10.2 sec (9.0-12.0)
[2019-04-14 09:08] LABS: Potassium 4.8 mmol/L (3.5-5.1)
== END 2019-04-14 10:05 | disposition home or self-care (01) ==
LOC: EC 06:54
DX: G43.909 Migraine, unspecified, not intractable, without status migrainosus (principal); Z32.02 Encounter for pregnancy test, result negative; F31.9 Bipolar disorder, unspecified; F25.9 Schizoaffective disorder, unspecified; F17.200 Nicotine dependence, unspecified, uncomplicated; Z79.899 Other long term (current) drug therapy; Z88.0 Allergy status to penicillin; Z88.2 Allergy status to sulfonamides; Z88.8 Allergy status to other drugs, medicaments and biological substances
CPT/HCPCS: 36415; 80053; 85025; 85610; 85730; 81001; 81025; 99284; 96374; 96375 ×2; 96361; J1200; J2765; J1885

== ENCOUNTER 2019-04-15 20:30 | Emergency (ER) | payer OTHER ==
[2019-04-15 20:44] VITALS: BP 97/72; PULSE 95; RESP 18; TEMP 98.2
[2019-04-15 21:25] LABS: Appearance,Urine Clear (Clear); Bilirubin,Urine Negative (Negative); Blood,Urine Small (Negative); Color,Urine Light Red; Glucose,Urine (UA) Negative (Negative); Ketones,Urine 1+ (Negative); Leukocyte Esterase,Urine Small (Negative); Mucus,Urine Rare /hpf; Nitrite,Urine Negative (Negative); Protein,Urine Negative (Negative); RBC,Urine 1 /hpf (0-5); Specific Gravity,Urine 1.024 (1.001-1.035); Squamous Epithelial Cell,Urine 2 /hpf (0-4); WBC,Urine 2 /hpf (0-5)
[2019-04-15] MEDS ORDERED: cefTRIAXone 1,000 MG VIAL (IM USE) IM STA (22:51)
[2019-04-15] MEDS ORDERED: FAMOTIDINE 20 MG TAB PO STA (22:51)
[2019-04-15] MEDS ORDERED: AZITHROMYCIN 500 MG TAB PO STA (22:51)
[2019-04-15] MEDS ORDERED: methylPREDNISolone SOD SUCCI 125 MG/2 ML VIAL IM ONE (22:52)
--- NOTE | 2019-04-15 22:53 | ED ---
Female Urogenital HPI - General Chief complaint: Urogenital Stated complaint: STD Source: patient Mode of arrival: ambulatory Limitations: no limitations - History of Present Illness Initial comments: 24-year-old female presenting for brown discharge and discomfort from the vagina. Patient states that she was recently here for evaluation of dysfunctional uterine bleeding. She states she still had spotty brown discharge and is concerned about STDs that she is unprotected sex 2 days ago with a nail different than her boyfriend. Patient had recent sexual transmitted disease testing revealing no gonorrhea Chlamydia or Trichomonas. Patient states she just wants treatment today. Patient denies any pelvic pain severe abdominal pain dysuria or urgency frequency or hematuria. Patient also requests her boyfriend be treated. Remainder review of system negative. Last Menstrual Period: 03/15/19 - Related Data Home Medications Medication Instructions Recorded Confirmed Paliperidone IM [Invega Sustenna] 234 mg IM QMONTH 04/14/19 04/14/19 QUEtiapine [SEROquel] 100 mg PO HS 04/14/19 04/14/19 buPROPion HCL [Wellbutrin XL] 300 mg PO DAILY 04/14/19 04/14/19 Previous Rx's Medication Instructions Recorded Ondansetron Odt [Zofran Odt] 4 mg PO Q8HR PRN #12 tab 04/14/19 Allergies Allergy/AdvReac Type Severity Reaction Status Date / Time Penicillins Allergy Severe Anaphylaxis Verified 04/14/19 07:11 Sulfa (Sulfonamide Allergy Severe Anaphylaxis Verified 04/14/19 07:11 Antibiotics) diphenhydramine HCl Allergy Nausea Verified 04/14/19 07:11 [From Benadryl] Review of Systems ROS Statement: Those systems with pertinent positive or pertinent negative responses have been documented in the HPI. ROS Other: All systems not noted in ROS Statement are negative. 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 Past Psychological History: Anxiety, Bipolar, Depression, Panic Disorder, PTSD, Schizoaffective Disorder Smoking Status: Current every day smoker Past Alcohol Use History: None Reported Past Drug Use History: Marijuana - Past Family History Mother Family Medical History: No Reported History Father Family Medical History: No Reported History Additional Family Medical History / Comment(s): bipolar, sever seasonal allergies Brother(s) Family Medical History: No Reported History Sister(s) Family Medical History: No Reported History General Exam - General Exam Comments Initial Comments: General: The patient is awake and alert, in no distress, and does not appear acutely ill. Eye: Pupils are equal, round and reactive to light, extra-ocular movements are intact. No nystagmus. There is normal conjunctiva bilaterally. No signs of icterus. Cardiovascular: There is a regular rate and rhythm. No murmur, rub or gallop is appreciated. Respiratory: Lungs are clear to auscultation, respirations are non-labored, breath sounds are equal. No wheezes, stridor, rales, or rhonchi. Gastrointestinal: Soft, non-distended, non-tender abdomen without masses or organomegaly noted. There is no rebound or guarding present. Musculoskeletal: Normal ROM, no tenderness. Strength 5/5. Sensation intact. Pulses equal bilaterally 2+. Neurological: A&O x 3. CN II-XII intact grossly, There are no obvious motor or sensory deficits. Coordination appears grossly intact. Speech is normal. Skin: Skin is warm and dry and no rashes or lesions are noted. Psychiatric: Cooperative, flat affect Vision left prior to completion of care of pelvic examination. Limitations: no limitations Course Vital Signs 04/15/19 20:42 Temperature 98.2 F Pulse Rate 95 Respiratory 18 Rate Blood Pressure 97/72 O2 Sat by Pulse 99 Oximetry Medical Decision Making - Medical Decision Making Left prior to completion of care. Patient requesting STD treatment. Patient left before pelvic examination and prophylactic STD treatment. - Lab Data Lab Results 04/15/19 04/15/19 Range/Units 20:35 20:35 Urine Color Light Red Urine Appearance Clear (Clear) Urine pH 6.0 (5.0-8.0) Ur Specific [place] 1.024 (1.001-1.035) Urine Protein Negative (Negative) Urine Glucose (UA) Negative (Negative) Urine Ketones 1+ H (Negative) Urine Blood Small H (Negative) Urine Nitrite Negative (Negative) Urine Bilirubin Negative (Negative) Urine Urobilinogen 2.0 (<2.0) mg/dL Ur Leukocyte Esterase Small H (Negative) Urine RBC 1 (0-5) /hpf Urine WBC 2 (0-5) /hpf Ur Squamous Epith Cells 2 (0-4) /hpf Urine Mucus Rare H (None) /hpf Urine HCG, Qual Not Detected (Not Detectd) Disposition Clinical Impression: Concern about STD in female without diagnosis Disposition: Left Against Medical Advice Condition: Good Instructions (If sedation given, give patient instructions): Sexually Transmitted Diseases (ED), Safe Sex (ED) Additional Instructions: Please use medication as discussed. Please follow-up with OBGYN and family doctor in 2 days. Please return to emergency room if the symptoms increase or worsen or for any other concerns. Is patient prescribed a controlled substance at d/c from ED?: No Referrals: None,Stated [Primary Care Provider] - 1-2 days Time of Disposition: 22:53
[2019-04-16 14:19] LABS: C. trachomatis,PCR Negative (Neg,Equiv); Chlamydia trachomatis Source Urine; N. gonorrhoeae,PCR Negative (Neg,Equiv); Neisseria Source Urine
== END 2019-04-15 23:06 | disposition left against medical advice (07) ==
LOC: EC 20:30
DX: Z20.2 Contact with and (suspected) exposure to infections with a predominantly sexual mode of transmission (principal); N89.8 Other specified noninflammatory disorders of vagina; F25.9 Schizoaffective disorder, unspecified; F31.9 Bipolar disorder, unspecified; F41.0 Panic disorder [episodic paroxysmal anxiety]; F17.200 Nicotine dependence, unspecified, uncomplicated; Z88.0 Allergy status to penicillin; Z88.2 Allergy status to sulfonamides; Z88.8 Allergy status to other drugs, medicaments and biological substances; Z79.899 Other long term (current) drug therapy; Z87.42 Personal history of other diseases of the female genital tract; Z53.20 Procedure and treatment not carried out because of patient's decision for unspecified reasons
CPT/HCPCS: 81001; 81025; 87491; 87591; 99283

== ENCOUNTER 2019-05-19 16:08 | Emergency (ER) | payer OTHER ==
[2019-05-19 16:13] VITALS: RESP 18
[2019-05-19] MEDS ORDERED: KETOROLAC 30 MG/ML 1 ML VIAL IVP STA (16:24)
--- NOTE | 2019-05-19 16:27 | ED ---
General Adult HPI - General Chief complaint: Abdominal Pain Stated complaint: Abd Pain Time Seen by Provider: 05/19/19 16:11 Source: patient, EMS Mode of arrival: EMS - History of Present Illness Initial comments: Dictation was produced using [employer] dictation software. please excuse any grammatical, word or spelling errors. Chief Complaint: 24-year-old female with past medical history of schizoaffective disorder, asthma in by ambulance for abdominal pain History of Present Illness: 24-year-old female she presents today with abdominal pain. Patient states her pain is in the suprapubic area. Patient states she has not had a nausea vomiting or diarrhea. Her abdomen is worse in the suprapubic area worse with palpation. Denies any vaginal bleeding or vaginal discharge. No fever or constitutional symptoms. She has had pain like this in the past. She states her pain started yesterday. He is brought in by EMS. Patient has a legal guardian. Patient has had Multiple evaluations in the past for abdominal pain. The ROS documented in this emergency department record has been reviewed and confirmed by me. Those systems with pertinent positive or negative responses have been documented in the HPI. All other systems are other negative and/or noncontributory. PHYSICAL EXAM: General Impression: Alert and oriented x3, not in acute distress HEENT: Normocephalic atraumatic, extra-ocular movements intact, pupils equal and reactive to light bilaterally, mucous membranes moist. Cardiovascular: Heart regular rate and rhythm, S1&S2 audible, no murmurs, rubs or gallops Chest: Lungs clear to auscultation bilaterally, no rhonchi, no wheeze, no rales Abdomen: Bowel sounds present, abdomen soft, minimally tender at the suprapubic area, non-distended, no organomegaly Musculoskeletal: Pulses present and equal in all extremities, no peripheral edema Motor: no focal deficits noted Neurological: CN II-XII grossly intact, no focal motor or sensory deficits noted Skin: Intact with no visualized rashes Psych: Normal affect and mood ED course: 24 y old female presents with abdominal pain. Upon arrival are within acceptable limits. Physical examination is grossly benign except for some mild tenderness to suprapubic palpation. She has no vaginal complaints. Chart review shows that patient has been evaluated on multiple occasions for abdominal pain. She had upper and lower endoscopy, HIDA scan, multiple CTs multiple pelvic ultrasounds with no significant findings. Patient is well- appearing. She has history of schizoaffective disorder. Patient appears to be mildly psychotic with flat affect however is unclear what patient's psychiatric baseline is. She denies any suicidal or homicidal ideation. No visual or Auditory hallucinations.Laboratory evaluation obtained. CBC, cardiac panel, metabolic panel is obtained. Lipase 368. Non-gap acidosis. Pelvic exam shows mild blood in the vaginal fornix. No adnexal or cervical motion tenderness. Urinalysis unremarkable. Acute abdominal series shows no acute processes. Patient given by mouth analgesia. Patient quickly stable at this time. He signed by mouth. Patient is having some drug-seeking behavior. She is advised follow up with her PCP upon discharge. Patient treated with STD medications. - Related Data Home Medications Medication Instructions Recorded Confirmed Paliperidone IM [Invega Sustenna] 234 mg IM QMONTH 04/14/19 05/19/19 Cetirizine HCl [Zyrtec] 10 mg PO BID 05/19/19 05/19/19 QUEtiapine [SEROquel] 200 mg PO HS 05/19/19 05/19/19 Allergies Allergy/AdvReac Type Severity Reaction Status Date / Time Penicillins Allergy Severe Anaphylaxis Verified 05/19/19 16:32 Sulfa (Sulfonamide Allergy Severe Anaphylaxis Verified 05/19/19 16:32 Antibiotics) diphenhydramine HCl Allergy Nausea Verified 05/19/19 16:32 [From Benadryl] Review of Systems ROS Statement: Those systems with pertinent positive or pertinent negative responses have been documented in the HPI. ROS Other: All systems not noted in ROS Statement are negative. 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 Past Psychological History: Anxiety, Bipolar, Depression, Panic Disorder, PTSD, Schizoaffective Disorder Smoking Status: Current every day smoker Past Alcohol Use History: None Reported Past Drug Use History: Marijuana - Past Family History Mother Family Medical History: No Reported History Father Family Medical History: No Reported History Additional Family Medical History / Comment(s): bipolar, sever seasonal allergies Brother(s) Family Medical History: No Reported History Sister(s) Family Medical History: No Reported History Course Vital Signs 05/19/19 16:09 Temperature 98.8 F Pulse Rate 99 Respiratory 18 Rate Blood Pressure 131/86 O2 Sat by Pulse 99 Oximetry Medical Decision Making - Lab Data Result diagrams: 05/19/19 16:30 05/19/19 16:30 Lab Results 05/19/19 05/19/19 05/19/19 Range/Units 16:20 16:20 16:30 WBC 5.7 (3.8-10.6) k/uL RBC 4.38 (3.80-5.40) m/uL Hgb 12.6 (11.4-16.0) gm/dL Hct 37.0 (34.0-46.0) % MCV 84.5 (80.0-100.0) fL MCH 28.9 (25.0-35.0) pg MCHC 34.1 (31.0-37.0) g/dL RDW 14.4 (11.5-15.5) % Plt Count 217 (150-450) k/uL Neutrophils % 56 % Lymphocytes % 34 % Monocytes % 5 % Eosinophils % 2 % Basophils % 0 % Neutrophils # 3.2 (1.3-7.7) k/uL Lymphocytes # 2.0 (1.0-4.8) k/uL Monocytes # 0.3 (0-1.0) k/uL Eosinophils # 0.1 (0-0.7) k/uL Basophils # 0.0 (0-0.2) k/uL PT (9.0-12.0) sec INR (<1.2) APTT (22.0-30.0) sec Sodium (137-145) mmol/L Potassium (3.5-5.1) mmol/L Chloride (98-107) mmol/L Carbon Dioxide (22-30) mmol/L Anion Gap mmol/L BUN (7-17) mg/dL Creatinine (0.52-1.04) mg/dL Est GFR (CKD-EPI)AfAm (>60 ml/min/1.73 sqM) Est GFR (CKD-EPI)NonAf (>60 ml/min/1.73 sqM) Glucose (74-99) mg/dL Calcium (8.4-10.2) mg/dL Magnesium (1.6-2.3) mg/dL Total Bilirubin (0.2-1.3) mg/dL AST (14-36) U/L ALT (9-52) U/L Alkaline Phosphatase (38-126) U/L Total Protein (6.3-8.2) g/dL Albumin (3.5-5.0) g/dL Lipase (23-300) U/L Urine Color Yellow Urine Appearance Clear (Clear) Urine pH 6.0 (5.0-8.0) Ur Specific [place] 1.014 (1.001-1.035) Urine Protein Negative (Negative) Urine Glucose (UA) Negative (Negative) Urine Ketones Negative (Negative) Urine Blood Negative (Negative) Urine Nitrite Negative (Negative) Urine Bilirubin Negative (Negative) Urine Urobilinogen <2.0 (<2.0) mg/dL Ur Leukocyte Esterase Negative (Negative) Urine HCG, Qual Not Detected (Not Detectd) 05/19/19 05/19/19 Range/Units 16:30 16:30 WBC (3.8-10.6) k/uL RBC (3.80-5.40) m/uL Hgb (11.4-16.0) gm/dL Hct (34.0-46.0) % MCV (80.0-100.0) fL MCH (25.0-35.0) pg MCHC (31.0-37.0) g/dL RDW (11.5-15.5) % Plt Count (150-450) k/uL Neutrophils % % Lymphocytes % % Monocytes % % Eosinophils % % Basophils % % Neutrophils # (1.3-7.7) k/uL Lymphocytes # (1.0-4.8) k/uL Monocytes # (0-1.0) k/uL Eosinophils # (0-0.7) k/uL Basophils # (0-0.2) k/uL PT 9.7 (9.0-12.0) sec INR 0.9 (<1.2) APTT 26.1 (22.0-30.0) sec Sodium 139 (137-145) mmol/L Potassium 3.8 (3.5-5.1) mmol/L Chloride 111 H (98-107) mmol/L Carbon Dioxide 18 L (22-30) mmol/L Anion Gap 10 mmol/L BUN 6 L (7-17) mg/dL Creatinine 0.61 (0.52-1.04) mg/dL Est GFR (CKD-EPI)AfAm >90 (>60 ml/min/1.73 sqM) Est GFR (CKD-EPI)NonAf >90 (>60 ml/min/1.73 sqM) Glucose 112 H (74-99) mg/dL Calcium 9.1 (8.4-10.2) mg/dL Magnesium 1.7 (1.6-2.3) mg/dL Total Bilirubin <0.1 L (0.2-1.3) mg/dL AST 22 (14-36) U/L ALT 41 (9-52) U/L Alkaline Phosphatase 86 (38-126) U/L Total Protein 6.7 (6.3-8.2) g/dL Albumin 3.8 (3.5-5.0) g/dL Lipase 368 H (23-300) U/L Urine Color Urine Appearance (Clear) Urine pH (5.0-8.0) Ur Specific [place] (1.001-1.035) Urine Protein (Negative) Urine Glucose (UA) (Negative) Urine Ketones (Negative) Urine Blood (Negative) Urine Nitrite (Negative) Urine Bilirubin (Negative) Urine Urobilinogen (<2.0) mg/dL Ur Leukocyte Esterase (Negative) Urine HCG, Qual (Not Detectd) Disposition Clinical Impression: Abdominal pain Disposition: HOME SELF-CARE Condition: Good Instructions (If sedation given, give patient instructions): Abdominal Pain (ED) Is patient prescribed a controlled substance at d/c from ED?: No Referrals: Lauren Denson MD [Primary Care Provider] - 1-2 days Time of Disposition: 17:24
[2019-05-19 16:35] LABS: Appearance,Urine Clear (Clear); Bilirubin,Urine Negative (Negative); Blood,Urine Negative (Negative); Color,Urine Yellow; Glucose,Urine (UA) Negative (Negative); Ketones,Urine Negative (Negative); Leukocyte Esterase,Urine Negative (Negative); Nitrite,Urine Negative (Negative); Protein,Urine Negative (Negative); Specific Gravity,Urine 1.014 (1.001-1.035); Urobilinogen,Urine <2.0 mg/dL (<2.0)
[2019-05-19 16:41] LABS: Basophils % (A) 0 %; Eosinophils # (A) 0.1 k/uL (0-0.7); Eosinophils % (A) 2 %; HGB 12.6 gm/dL (11.4-16.0); Lymphocytes % (A) 34 %; MCH 28.9 pg (25.0-35.0); MCHC 34.1 g/dL (31.0-37.0); MCV 84.5 fL (80.0-100.0); Mean Platelet Volume 7.2; Monocytes # (A) 0.3 k/uL (0-1.0); Monocytes % (A) 5 %; Neutrophils # (A) 3.2 k/uL (1.3-7.7); Neutrophils % (A) 56 %; Platelet Count 217 k/uL (150-450); RBC 4.38 m/uL (3.80-5.40); RDW 14.4 % (11.5-15.5); WBC 5.7 k/uL (3.8-10.6)
[2019-05-19 16:51] LABS: INR 0.9 (<1.2); Partial Thromboplastin Time 26.1 sec (22.0-30.0); Prothrombin Time 9.7 sec (9.0-12.0)
[2019-05-19 16:52] LABS: ALT 41 U/L (9-52); AST 22 U/L (14-36); African American GFR (CKD) >90 (>60 ml/min/1.73 sqM); Albumin 3.8 g/dL (3.5-5.0); Alkaline Phosphatase 86 U/L (38-126); Anion Gap 10 mmol/L; Blood Urea Nitrogen 6 mg/dL (7-17); Calcium 9.1 mg/dL (8.4-10.2); Carbon Dioxide 18 mmol/L (22-30); Chloride 111 mmol/L (98-107); Glucose 112 mg/dL (74-99); Magnesium 1.7 mg/dL (1.6-2.3); Potassium 3.8 mmol/L (3.5-5.1); Sodium 139 mmol/L (137-145); Total Bilirubin <0.1 mg/dL (0.2-1.3); Total Protein 6.7 g/dL (6.3-8.2)
[2019-05-19] MEDS ORDERED: SODIUM CHLORIDE 0.9% 1,000 ML IV STA (17:01)
--- NOTE | 2019-05-19 17:03 | XR ---
EXAMINATION TYPE: XR abdomen acute w cxr DATE OF EXAM: 05/19/2019 COMPARISON: January 21, 2019 HISTORY: Abdominal pain TECHNIQUE: Chest x-ray with supine and upright abdomen FINDINGS: Heart and mediastinum are normal. Lungs are clear. Diaphragm is normal. Bony thorax appears normal. B owel gas pattern is normal. There is no sign of intestinal obstruction or pneumoperitoneum. Fecal pat tern is normal. There are no pathologic calcifications over the kidneys. IMPRESSION: Normal chest. Nonacute abdomen. No change.
[2019-05-19] MEDS ORDERED: cefTRIAXone 250 MG VIAL IM STA (17:04)
[2019-05-19] MEDS ORDERED: AZITHROMYCIN 500 MG TAB PO STA (17:05)
[2019-05-19] MEDS ORDERED: HYDROcodone/APAP 5-325MG 1 EACH TAB PO STA (17:06)
[2019-05-19] MEDS ORDERED: metroNIDAZOLE 500 MG TAB PO STA (17:26)
[2019-05-19 17:48] VITALS: BP 115/80; PULSE 85; TEMP 98.4
[2019-05-20 13:45] LABS: N. gonorrhoeae,PCR Negative (Neg,Equiv); Neisseria Source Urine
[2019-05-20 14:07] LABS: C. trachomatis,PCR Negative (Neg,Equiv); Chlamydia trachomatis Source Urine
== END 2019-05-19 17:45 | disposition home or self-care (01) ==
LOC: EC 16:08 → SUPCPDRO 16:08 → EC 17:45
DX: R10.30 Lower abdominal pain, unspecified (principal); Z76.5 Malingerer [conscious simulation]; F25.1 Schizoaffective disorder, depressive type; F25.0 Schizoaffective disorder, bipolar type; F17.200 Nicotine dependence, unspecified, uncomplicated; Z79.899 Other long term (current) drug therapy; Z88.0 Allergy status to penicillin; Z88.2 Allergy status to sulfonamides; Z88.8 Allergy status to other drugs, medicaments and biological substances; Z87.442 Personal history of urinary calculi; Z53.8 Procedure and treatment not carried out for other reasons
CPT/HCPCS: 99285; 96374; 96361; 96372; 36415; 93005; 86900; 86901; 80053; 83690; 83735; 85025; 85610; 85730; 86850; 81003; 81025; 87808; 87491; 87591; 74022; J0696; J1885

== ENCOUNTER 2019-05-23 18:28 | Emergency (ER) | payer OTHER ==
[2019-05-23 18:35] VITALS: BP 125/80; PULSE 68; RESP 18; TEMP 98.1
[2019-05-23] MEDS ORDERED: DIAZEPAM 5 MG TAB PO STA (18:41)
[2019-05-23] MEDS ORDERED: ONDANSETRON ODT 4 MG TAB PO STA (18:41)
--- NOTE | 2019-05-23 18:43 | ED ---
Recheck HPI - General Chief Complaint: Recheck/Abnormal Lab/Rx Stated Complaint: "not feeling well" Time Seen by Provider: 05/23/19 18:37 Source: EMS, RN notes reviewed, old records reviewed Mode of arrival: EMS Limitations: no limitations - History of Present Illness Initial Comments: This is a 24-year-old female the ER for evaluation patient presents today for evaluation regarding multiple complaints mainly revolving or nausea and not feeling well. Patient states that she has been feeling well for a few days. Multiple ER visits recently. Patient is well-known to this facility coming in from [facility] by EMS for she was not feeling well. Patient's main complaint today is nausea no vomiting no known fevers no abdominal pain no chest pain or shortness of breath. Patient denies any recent medication, changes denies thoughts of homicide or suicide MD Complaint: other (Overall not feeling well with recent hospital evaluations for same) -: days(s) Returns Today for: other (Worsening symptoms, weakness nausea) Symptoms Since Prior Visit: no new symptoms Associated Symptoms: malaise, nausea Treatments Prior to Arrival: other (None) - Related Data Home Medications Medication Instructions Recorded Confirmed Paliperidone IM [Invega Sustenna] 234 mg IM QMONTH 04/14/19 05/19/19 Cetirizine HCl [Zyrtec] 10 mg PO BID 05/19/19 05/19/19 QUEtiapine [SEROquel] 200 mg PO HS 05/19/19 05/19/19 Allergies Allergy/AdvReac Type Severity Reaction Status Date / Time Penicillins Allergy Severe Anaphylaxis Verified 05/19/19 16:32 Sulfa (Sulfonamide Allergy Severe Anaphylaxis Verified 05/19/19 16:32 Antibiotics) diphenhydramine HCl Allergy Nausea Verified 05/19/19 16:32 [From Benadryl] Review of Systems ROS Statement: Those systems with pertinent positive or pertinent negative responses have been documented in the HPI. ROS Other: All systems not noted in ROS Statement are negative. 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 Past Psychological History: Anxiety, Bipolar, Depression, Panic Disorder, PTSD, Schizoaffective Disorder Smoking Status: Current every day smoker Past Alcohol Use History: None Reported Past Drug Use History: Marijuana - Past Family History Mother Family Medical History: No Reported History Father Family Medical History: No Reported History Additional Family Medical History / Comment(s): bipolar, sever seasonal allergies Brother(s) Family Medical History: No Reported History Sister(s) Family Medical History: No Reported History General Exam Limitations: no limitations General appearance: alert, in no apparent distress Head exam: Present: atraumatic, normocephalic, normal inspection Eye exam: Present: normal appearance, PERRL, EOMI. Absent: scleral icterus, conjunctival injection, periorbital swelling ENT exam: Present: normal exam, mucous membranes moist Neck exam: Present: normal inspection. Absent: tenderness, meningismus, lymphadenopathy Respiratory exam: Present: normal lung sounds bilaterally. Absent: respiratory distress, wheezes, rales, rhonchi, stridor Cardiovascular Exam: Present: regular rate, normal rhythm, normal heart sounds. Absent: systolic murmur, diastolic murmur, rubs, gallop, clicks GI/Abdominal exam: Present: soft, normal bowel sounds. Absent: distended, tenderness, guarding, rebound, rigid Extremities exam: Present: normal inspection, full ROM, normal capillary refill. Absent: tenderness, pedal edema, joint swelling, calf tenderness Back exam: Present: normal inspection Neurological exam: Present: alert, oriented X3, CN II-XII intact Psychiatric exam: Present: normal affect, normal mood Skin exam: Present: warm, dry, intact, normal color. Absent: rash Course Vital Signs 05/23/19 18:30 Temperature 98.1 F Pulse Rate 68 Respiratory 18 Rate Blood Pressure 125/80 O2 Sat by Pulse 98 Oximetry - Reevaluation(s) Reevaluation #1: 05/23/19 18:43 Medical records reviewed including ER visits for same complaint this past week Reevaluation #2: 05/23/19 19:07 Patient refusing medication or further testing Medical Decision Making - Medical Decision Making 24 female the ER for evaluation of not feeling well. Multiple ER visits this week for same. At this point patient refuses any testing or imaging. Refusing any evaluation. Patient will like to be discharged, she does smoke marijuana. Patient can be discharged home Disposition Clinical Impression: Nausea Disposition: HOME SELF-CARE Condition: Good Instructions (If sedation given, give patient instructions): Acute Nausea and Vomiting (ED) Is patient prescribed a controlled substance at d/c from ED?: No Referrals: Lauren Denson MD [Primary Care Provider] - 1-2 days
[2019-05-23 19:23] LABS: Amphetamine Screen,Urine Not Detected (NotDetected); Barbiturate Screen,Urine Not Detected (NotDetected); Benzodiazepines Screen,Urine Not Detected (NotDetected); Cocaine Screen,Urine Detected (NotDetected); Methadone Screen, Urine Not Detected (NotDetected); Opiate Screen,Urine Not Detected (NotDetected); Oxycodone Screen, Urine Not Detected (NotDetected); Phencyclidine Screen,Urine Not Detected (NotDetected); Tricyclic Antidepressant,Urine Not Detected (NotDetected); Urn Cannabinoid Scrn Detected (NotDetected)
[2019-05-23 19:27] LABS: Appearance,Urine Clear (Clear); Bilirubin,Urine Negative (Negative); Blood,Urine Negative (Negative); Calcium Oxalate Crystals,Urine Rare /hpf; Color,Urine Yellow; Glucose,Urine (UA) Negative (Negative); Ketones,Urine Negative (Negative); Leukocyte Esterase,Urine Small (Negative); Mucus,Urine Occasional /hpf; Nitrite,Urine Negative (Negative); PH, Urine 6.5 (5.0-8.0); Protein,Urine Trace (Negative); RBC,Urine 1 /hpf (0-5); Specific Gravity,Urine 1.029 (1.001-1.035); Squamous Epithelial Cell,Urine 5 /hpf (0-4)
== END 2019-05-23 19:07 | disposition left against medical advice (07) ==
LOC: EC 18:28
DX: R11.0 Nausea (principal); R53.81 Other malaise; F31.9 Bipolar disorder, unspecified; F25.9 Schizoaffective disorder, unspecified; F17.200 Nicotine dependence, unspecified, uncomplicated; Z79.899 Other long term (current) drug therapy; Z88.0 Allergy status to penicillin; Z88.2 Allergy status to sulfonamides; Z88.8 Allergy status to other drugs, medicaments and biological substances
CPT/HCPCS: 80306; 81001; 87502; 99284

== ENCOUNTER 2019-06-18 09:20 | Emergency (ER) | payer OTHER ==
[2019-06-18 09:30] VITALS: TEMP 98
[2019-06-18] MEDS ORDERED: hydrOXYzine HCL 25 MG TAB PO STA (10:00)
--- NOTE | 2019-06-18 10:03 | ED ---
General Adult HPI - General Chief complaint: Chest Pain Stated complaint: CHEST PAIN Time Seen by Provider: 06/18/19 09:29 Source: patient, EMS Mode of arrival: EMS - History of Present Illness Initial comments: Dictation was produced using [employer] dictation software. please excuse any grammatical, word or spelling errors. Chief Complaint: 24-year-old female presents with chief complaint of purple breast History of Present Illness: 24-year-old female she presents today with pruritus of the right breast patient states this may EKG for the last couple days. She states that earlier today was purple. She denies any breast pain. She informed her primary care physician about this and was instructed to go to the urgent care or emergency department for a mammogram. Patient has no other complaints at this time. Patient is also requesting a urine test. The ROS documented in this emergency department record has been reviewed and c onfirmed by me. Those systems with pertinent positive or negative responses have been documented in the HPI. All other systems are other negative and/or noncontributory. PHYSICAL EXAM: General Impression: Alert and oriented x3, not in acute distress HEENT: Normocephalic atraumatic, extra-ocular movements intact, pupils equal and reactive to light bilaterally, mucous membranes moist. Cardiovascular: Heart regular rate and rhythm, S1&S2 audible, no murmurs, rubs or gallops Chest: Lungs clear to auscultation bilaterally, no rhonchi, no wheeze, no rales Breast exam: No palpable mass to bilateral breast, no skin changes, no purple skin Abdomen: Bowel sounds present, abdomen soft, non-tender, non-distended, no organomegaly Musculoskeletal: Pulses present and equal in all extremities, no peripheral edema Motor: no focal deficits noted Neurological: CN II-XII grossly intact, no focal motor or sensory deficits noted Skin: Intact with no visualized rashes Psych: Normal affect and mood ED course: 24 female presents with chief complaint of pruritic and purple breast. Physical examination is benign. Vital signs Upon arrival are within acceptable limits. Patient's 1 month emergency department for multiple visitations for myriad of complaints. Patient given hydroxyzine for symptom control. She is informed that we do not perform mammograms in the emergency department. Urine test is negative. Patient clear for discharge. - Related Data Home Medications Medication Instructions Recorded Confirmed Paliperidone IM [Invega Sustenna] 234 mg IM Q28H 04/14/19 06/18/19 Cetirizine HCl [Zyrtec] 10 mg PO DAILY 05/19/19 06/18/19 QUEtiapine [SEROquel] 200 mg PO HS 05/19/19 06/18/19 Multivitamins, Thera [Multivitamin 1 tab PO DAILY 06/18/19 06/18/19 (formulary)] Triamcinolone Acetonide [Nasacort] 1 spray EA NOSTRIL DAILY 06/18/19 06/18/19 Allergies Allergy/AdvReac Type Severity Reaction Status Date / Time Penicillins Allergy Severe Anaphylaxis Verified 06/18/19 09:54 Sulfa (Sulfonamide Allergy Severe Anaphylaxis Verified 06/18/19 09:54 Antibiotics) diphenhydramine HCl Allergy Nausea Verified 06/18/19 09:54 [From Benadryl] Review of Systems ROS Statement: Those systems with pertinent positive or pertinent negative responses have been documented in the HPI. ROS Other: All systems not noted in ROS Statement are negative. 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 Past Psychological History: Anxiety, Bipolar, Depression, Panic Disorder, PTSD, Schizoaffective Disorder Smoking Status: Current every day smoker Past Alcohol Use History: None Reported Past Drug Use History: Marijuana - Past Family History Mother Family Medical History: No Reported History Father Family Medical History: No Reported History Additional Family Medical History / Comment(s): bipolar, sever seasonal allergies Brother(s) Family Medical History: No Reported History Sister(s) Family Medical History: No Reported History Course Vital Signs 06/18/19 06/18/19 09:23 10:30 Temperature 98 F Pulse Rate 86 76 Respiratory 20 18 Rate Blood Pressure 108/62 102/76 O2 Sat by Pulse 97 99 Oximetry Medical Decision Making - Lab Data Lab Results 06/18/19 Range/Units 10:18 Urine HCG, Qual Not Detected (Not Detectd) Disposition Clinical Impression: Breast deformity Disposition: HOME SELF-CARE Condition: Good Instructions (If sedation given, give patient instructions): Breast Self Exam for Women (ED) Is patient prescribed a controlled substance at d/c from ED?: No Referrals: [facility] [Primary Care Provider] - 1-2 days Time of Disposition: 10:46
[2019-06-18 10:32] VITALS: BP 102/76; PULSE 76; RESP 18
== END 2019-06-18 11:05 | disposition home or self-care (01) ==
LOC: EC 09:20
DX: N64.89 Other specified disorders of breast (principal); Z32.02 Encounter for pregnancy test, result negative; J45.909 Unspecified asthma, uncomplicated; F31.9 Bipolar disorder, unspecified; F25.9 Schizoaffective disorder, unspecified; F41.0 Panic disorder [episodic paroxysmal anxiety]; F17.200 Nicotine dependence, unspecified, uncomplicated; Z88.0 Allergy status to penicillin; Z88.2 Allergy status to sulfonamides; Z88.8 Allergy status to other drugs, medicaments and biological substances; Z79.899 Other long term (current) drug therapy
CPT/HCPCS: 81025; 99285

== ENCOUNTER 2019-06-23 18:06 | Emergency (ER) | payer OTHER ==
[2019-06-23 18:15] VITALS: RESP 16; TEMP 97.9
[2019-06-23] MEDS ORDERED: ONDANSETRON ODT 4 MG TAB PO STA (18:22)
[2019-06-23] MEDS ORDERED: cefTRIAXone 250 MG VIAL IM STA (18:23)
[2019-06-23] MEDS ORDERED: AZITHROMYCIN 500 MG TAB PO STA (18:23)
[2019-06-23] MEDS ORDERED: metroNIDAZOLE 500 MG TAB PO STA (18:24)
--- NOTE | 2019-06-23 18:32 | ED ---
Female Urogenital HPI - General Chief complaint: Urogenital Stated complaint: pelvic pain Time Seen by Provider: 06/23/19 18:07 Source: EMS, RN notes reviewed, old records reviewed Mode of arrival: EMS Limitations: no limitations - History of Present Illness Initial comments: 24-year-old female presents today for evaluation for concern for brown vaginal discharge. Patient states that she had unprotected sex a few days ago, and is concerned that she has Chlamydia. This time Patient states that she has no seen abdominal pain but just complains of some itching and burning in her groin. Patient has had no vomiting. Denies any changes in bowel habits. Patient states that her last menstrual period was one to 2 months ago. She is on a Depo-Provera shot. Last Menstrual Period: 04/23/19 - Related Data Home Medications Medication Instructions Recorded Confirmed Paliperidone IM [Invega Sustenna] 234 mg IM Q28H 04/14/19 06/18/19 Cetirizine HCl [Zyrtec] 10 mg PO DAILY 05/19/19 06/18/19 QUEtiapine [SEROquel] 200 mg PO HS 05/19/19 06/18/19 Multivitamins, Thera [Multivitamin 1 tab PO DAILY 06/18/19 06/18/19 (formulary)] Triamcinolone Acetonide [Nasacort] 1 spray EA NOSTRIL DAILY 06/18/19 06/18/19 Allergies Allergy/AdvReac Type Severity Reaction Status Date / Time Penicillins Allergy Severe Anaphylaxis Verified 06/18/19 09:54 Sulfa (Sulfonamide Allergy Severe Anaphylaxis Verified 06/18/19 09:54 Antibiotics) diphenhydramine HCl Allergy Nausea Verified 06/18/19 09:54 [From Benadryl] Review of Systems ROS Statement: Those systems with pertinent positive or pertinent negative responses have been documented in the HPI. ROS Other: All systems not noted in ROS Statement are negative. 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 Past Psychological History: Anxiety, Bipolar, Depression, Panic Disorder, PTSD, Schizoaffective Disorder Smoking Status: Current every day smoker Past Alcohol Use History: None Reported Past Drug Use History: Marijuana - Past Family History Mother Family Medical History: No Reported History Father Family Medical History: No Reported History Additional Family Medical History / Comment(s): bipolar, sever seasonal allergies Brother(s) Family Medical History: No Reported History Sister(s) Family Medical History: No Reported History General Exam - General Exam Comments Initial Comments: 24-year-old female. Alert and oriented 3. Limitations: no limitations General appearance: alert, in no apparent distress Head exam: Present: atraumatic, normocephalic, normal inspection Eye exam: Present: normal appearance, PERRL, EOMI. Absent: scleral icterus, conjunctival injection, periorbital swelling ENT exam: Present: normal exam, mucous membranes moist Neck exam: Present: normal inspection. Absent: tenderness, meningismus, lymphadenopathy Respiratory exam: Present: normal lung sounds bilaterally. Absent: respiratory distress, wheezes, rales, rhonchi, stridor Cardiovascular Exam: Present: regular rate, normal rhythm, normal heart sounds. Absent: systolic murmur, diastolic murmur, rubs, gallop, clicks GI/Abdominal exam: Present: soft, normal bowel sounds. Absent: distended, tenderness, guarding, rebound, rigid External exam: Present: normal external exam Speculum exam: Present: vaginal discharge (Patient has brown vaginal discharge.). Absent: normal speculum exam By manual exam: Present: normal by manual exam Extremities exam: Present: normal inspection, full ROM, normal capillary refill. Absent: tenderness, pedal edema, joint swelling, calf tenderness Back exam: Present: normal inspection Neurological exam: Present: alert, oriented X3, CN II-XII intact Psychiatric exam: Present: normal affect, normal mood Course Vital Signs 06/23/19 18:11 Temperature 97.9 F Pulse Rate 67 Respiratory 16 Rate Blood Pressure 118/78 O2 Sat by Pulse 97 Oximetry Medical Decision Making - Medical Decision Making This is a 24-year-old female, for concerns for STDs. She complains of vaginal itching and burning for the past day. Concerned that she's had history of unprotected sex and questioning if she may have chlamydia. Patient at this time has no abdominal tenderness. No adnexal tenderness on pelvic exam. She did have brown vaginal discharge. Prophylactic treated the Patient with Rocephin and Flagyl and azithromycin. Patient's urine sample was lost in the tube system. I discussed that we wanted to repeat a urine sample on the Patient she refused. Stated that she just wanted to leave and would refuse waiting to complete a urine sample. I discussed the Patient will now be leaving [place]. She states that she has an appointment tomorrow with [facility] already. - Lab Data Lab Results 06/23/19 Range/Units 18:05 Trichomonas Ag (Rapid) Negative (Negative) Disposition Clinical Impression: Concern about STD in female without diagnosis Disposition: Left Against Medical Advice Condition: Good Is patient prescribed a controlled substance at d/c from ED?: No Referrals: [facility] [Primary Care Provider] - 1-2 days Time of Disposition: 18:32
[2019-06-23 19:36] VITALS: BP 132/91; PULSE 76
[2019-06-24 12:53] LABS: C. trachomatis,PCR Negative (Neg,Equiv); Chlamydia trachomatis Source Vagina; N. gonorrhoeae,PCR Negative (Neg,Equiv); Neisseria Source Vagina
== END 2019-06-23 19:35 | disposition left against medical advice (07) ==
LOC: EC 18:06
DX: Z71.1 Person with feared health complaint in whom no diagnosis is made (principal); N89.8 Other specified noninflammatory disorders of vagina; F31.9 Bipolar disorder, unspecified; F41.0 Panic disorder [episodic paroxysmal anxiety]; F25.9 Schizoaffective disorder, unspecified; F17.200 Nicotine dependence, unspecified, uncomplicated; Z79.899 Other long term (current) drug therapy; Z88.0 Allergy status to penicillin; Z88.2 Allergy status to sulfonamides; Z88.8 Allergy status to other drugs, medicaments and biological substances
CPT/HCPCS: 87808; 87491; 87591; 87070; 99284; 96372; J0696

== ENCOUNTER 2019-06-25 11:05 | Emergency (ER) | payer OTHER ==
[2019-06-25 11:14] VITALS: TEMP 97.9
[2019-06-25] MEDS ORDERED: ONDANSETRON 4 MG/2 ML VIAL IVP STA (11:21)
[2019-06-25] MEDS ORDERED: SODIUM CHLORIDE 0.9% 500 ML 500 ML IV ONE (11:22)
--- NOTE | 2019-06-25 11:25 | ED ---
General Adult HPI - General Chief complaint: Chest Pain Stated complaint: CHEST PAIN Time Seen by Provider: 06/25/19 11:05 Source: patient, RN notes reviewed, old records reviewed Mode of arrival: ambulatory Limitations: no limitations - History of Present Illness Initial comments: This is a 24-year-old female who presents emergency department stating that she's nauseated and has vomiting over the last couple of days. Patient denies any fever chills. Patient states her abdomen gets cramping on occasion right before she vomits. Patient states she is sexually active and doesn't know if she is . Patient states she had pain in her chest only when she is vomiting. Patient denies any chest pain currently. Patient denies any difficulty breathing shortness of breath. Patient denies any dysuria hematuria urinary frequency. Patient denies any back pain. Patient denies any headache patient denies numbness weakness. Patient denies any lightheadedness or dizziness. - Related Data Home Medications Medication Instructions Recorded Confirmed Paliperidone IM [Invega Sustenna] 234 mg IM Q28D 04/14/19 06/25/19 Cetirizine HCl [Zyrtec] 10 mg PO DAILY 05/19/19 06/25/19 QUEtiapine [SEROquel] 200 mg PO HS 05/19/19 06/25/19 Multivitamins, Thera [Multivitamin 1 tab PO DAILY 06/18/19 06/25/19 (formulary)] Triamcinolone Acetonide [Nasacort] 1 spray EA NOSTRIL DAILY 06/18/19 06/25/19 Ibuprofen 800 mg PO Q6H PRN 06/25/19 06/25/19 Methocarbamol [Robaxin] 750 mg PO BID PRN 06/25/19 06/25/19 Allergies Allergy/AdvReac Type Severity Reaction Status Date / Time Penicillins Allergy Severe Anaphylaxis Verified 06/25/19 11:46 Sulfa (Sulfonamide Allergy Severe Anaphylaxis Verified 06/25/19 11:46 Antibiotics) diphenhydramine HCl Allergy Nausea Verified 06/25/19 11:46 [From Benadryl] Review of Systems ROS Statement: Those systems with pertinent positive or pertinent negative responses have been documented in the HPI. ROS Other: All systems not noted in ROS Statement are negative. 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 Past Psychological History: Anxiety, Bipolar, Depression, Panic Disorder, PTSD, Schizoaffective Disorder Smoking Status: Current every day smoker Past Alcohol Use History: None Reported Past Drug Use History: Marijuana - Past Family History Mother Family Medical History: No Reported History Father Family Medical History: No Reported History Additional Family Medical History / Comment(s): bipolar, sever seasonal allergies Brother(s) Family Medical History: No Reported History Sister(s) Family Medical History: No Reported History General Exam - General Exam Comments Initial Comments: GENERAL: Patient is well-developed and well-nourished. Patient is nontoxic and well- hydrated and is in no acute distress. ENT: Neck is soft and supple. No significant lymphadenopathy is noted. Oropharynx is clear. Moist mucous membranes. Neck has full range of motion without eliciting any pain. EYES: The sclera were anicteric and conjunctiva were pink and moist. Extraocular movements were intact and pupils were equal round and reactive to light. Eyelids were unremarkable. PULMONARY: Unlabored respirations. Good breath sounds bilaterally. No audible rales rhonchi or wheezing was noted. CARDIOVASCULAR: There is a regular rate and rhythm without any murmurs gallops or rubs. ABDOMEN: Soft and nontender with normal bowel sounds. SKIN: Skin is clear with no lesions or rashes and otherwise unremarkable. NEUROLOGIC: Patient is alert and oriented x3. Cranial nerves II through XII are grossly intact. Motor and sensory are also intact. Normal speech, volume and content. Symmetrical smile. MUSCULOSKELETAL: Normal extremities with adequate strength and full range of motion. LYMPHATICS: No significant lymphadenopathy is noted PSYCHIATRIC: Normal psychiatric evaluation. Limitations: no limitations Course Vital Signs 06/25/19 11:11 Temperature 97.9 F Pulse Rate 89 Respiratory 18 Rate Blood Pressure 105/65 O2 Sat by Pulse 95 Oximetry Medical Decision Making - Medical Decision Making EKG shows normal sinus rhythm at 84 bpm MI interval 144 QRS 70 QT interval 390 QTC is 460. Patient's EKG shows no ST segment elevation or depression or T wave abnormalities are noted. Patient had no vomiting while in the emergency department. Patient was able to tolerate fluids. Patient states she has an appointment with her primary medical care doctor. - Lab Data Result diagrams: 06/25/19 11:25 06/25/19 11:25 Lab Results 06/25/19 06/25/19 06/25/19 Range/Units 11:25 11:25 11:35 WBC 6.7 (3.8-10.6) k/uL RBC 4.71 (3.80-5.40) m/uL Hgb 13.3 (11.4-16.0) gm/dL Hct 39.9 (34.0-46.0) % MCV 84.6 (80.0-100.0) fL MCH 28.2 (25.0-35.0) pg MCHC 33.4 (31.0-37.0) g/dL RDW 13.6 (11.5-15.5) % Plt Count 195 (150-450) k/uL Neutrophils % 65 % Lymphocytes % 29 % Monocytes % 2 % Eosinophils % 1 % Basophils % 1 % Neutrophils # 4.4 (1.3-7.7) k/uL Lymphocytes # 2.0 (1.0-4.8) k/uL Monocytes # 0.2 (0-1.0) k/uL Eosinophils # 0.1 (0-0.7) k/uL Basophils # 0.0 (0-0.2) k/uL Sodium 141 (137-145) mmol/L Potassium 3.8 (3.5-5.1) mmol/L Chloride 111 H (98-107) mmol/L Carbon Dioxide 21 L (22-30) mmol/L Anion Gap 9 mmol/L BUN 10 (7-17) mg/dL Creatinine 0.73 (0.52-1.04) mg/dL Est GFR (CKD-EPI)AfAm >90 (>60 ml/min/1.73 sqM) Est GFR (CKD-EPI)NonAf >90 (>60 ml/min/1.73 sqM) Glucose 142 H (74-99) mg/dL Calcium 9.5 (8.4-10.2) mg/dL Total Bilirubin 0.4 (0.2-1.3) mg/dL AST 23 (14-36) U/L ALT 35 (9-52) U/L Alkaline Phosphatase 95 (38-126) U/L Total Protein 7.1 (6.3-8.2) g/dL Albumin 4.3 (3.5-5.0) g/dL Lipase 61 (23-300) U/L Urine Color Urine Appearance (Clear) Urine pH (5.0-8.0) Ur Specific [place] (1.001-1.035) Urine Protein (Negative) Urine Glucose (UA) (Negative) Urine Ketones (Negative) Urine Blood (Negative) Urine Nitrite (Negative) Urine Bilirubin (Negative) Urine Urobilinogen (<2.0) mg/dL Ur Leukocyte Esterase (Negative) Urine RBC (0-5) /hpf Urine WBC (0-5) /hpf Ur Squamous Epith Cells (0-4) /hpf Urine Bacteria (None) /hpf Urine Mucus (None) /hpf Urine HCG, Qual Not Detected (Not Detectd) 06/25/19 Range/Units 11:35 WBC (3.8-10.6) k/uL RBC (3.80-5.40) m/uL Hgb (11.4-16.0) gm/dL Hct (34.0-46.0) % MCV (80.0-100.0) fL MCH (25.0-35.0) pg MCHC (31.0-37.0) g/dL RDW (11.5-15.5) % Plt Count (150-450) k/uL Neutrophils % % Lymphocytes % % Monocytes % % Eosinophils % % Basophils % % Neutrophils # (1.3-7.7) k/uL Lymphocytes # (1.0-4.8) k/uL Monocytes # (0-1.0) k/uL Eosinophils # (0-0.7) k/uL Basophils # (0-0.2) k/uL Sodium (137-145) mmol/L Potassium (3.5-5.1) mmol/L Chloride (98-107) mmol/L Carbon Dioxide (22-30) mmol/L Anion Gap mmol/L BUN (7-17) mg/dL Creatinine (0.52-1.04) mg/dL Est GFR (CKD-EPI)AfAm (>60 ml/min/1.73 sqM) Est GFR (CKD-EPI)NonAf (>60 ml/min/1.73 sqM) Glucose (74-99) mg/dL Calcium (8.4-10.2) mg/dL Total Bilirubin (0.2-1.3) mg/dL AST (14-36) U/L ALT (9-52) U/L Alkaline Phosphatase (38-126) U/L Total Protein (6.3-8.2) g/dL Albumin (3.5-5.0) g/dL Lipase (23-300) U/L Urine Color Dark Brown Urine Appearance Turbid H (Clear) Urine pH 6.0 (5.0-8.0) Ur Specific [place] 1.032 (1.001-1.035) Urine Protein 1+ H (Negative) Urine Glucose (UA) Negative (Negative) Urine Ketones 1+ H (Negative) Urine Blood Moderate H (Negative) Urine Nitrite Negative (Negative) Urine Bilirubin Negative (Negative) Urine Urobilinogen 3.0 (<2.0) mg/dL Ur Leukocyte Esterase Small H (Negative) Urine RBC 3 (0-5) /hpf Urine WBC 8 H (0-5) /hpf Ur Squamous Epith Cells 64 H (0-4) /hpf Urine Bacteria Many H (None) /hpf Urine Mucus Many H (None) /hpf Urine HCG, Qual (Not Detectd) Disposition Clinical Impression: Acute vomiting Disposition: HOME SELF-CARE Condition: Good Instructions (If sedation given, give patient instructions): Acute Nausea and Vomiting (ED) Is patient prescribed a controlled substance at d/c from ED?: No Referrals: [facility] [Primary Care Provider] - 1-2 days Time of Disposition: 12:11
[2019-06-25 11:39] LABS: Basophils % (A) 1 %; Eosinophils # (A) 0.1 k/uL (0-0.7); Eosinophils % (A) 1 %; HCT 39.9 % (34.0-46.0); HGB 13.3 gm/dL (11.4-16.0); Lymphocytes % (A) 29 %; MCH 28.2 pg (25.0-35.0); MCHC 33.4 g/dL (31.0-37.0); MCV 84.6 fL (80.0-100.0); Mean Platelet Volume 7.8; Monocytes # (A) 0.2 k/uL (0-1.0); Monocytes % (A) 2 %; Neutrophils # (A) 4.4 k/uL (1.3-7.7); Neutrophils % (A) 65 %; Platelet Count 195 k/uL (150-450); RBC 4.71 m/uL (3.80-5.40); RDW 13.6 % (11.5-15.5); WBC 6.7 k/uL (3.8-10.6)
[2019-06-25 11:51] LABS: ALT 35 U/L (9-52); AST 23 U/L (14-36); African American GFR (CKD) >90 (>60 ml/min/1.73 sqM); Albumin 4.3 g/dL (3.5-5.0); Alkaline Phosphatase 95 U/L (38-126); Anion Gap 9 mmol/L; Blood Urea Nitrogen 10 mg/dL (7-17); Calcium 9.5 mg/dL (8.4-10.2); Carbon Dioxide 21 mmol/L (22-30); Chloride 111 mmol/L (98-107); Glucose 142 mg/dL (74-99); Non-African American GFR(CKD) >90 (>60 ml/min/1.73 sqM); Potassium 3.8 mmol/L (3.5-5.1); Sodium 141 mmol/L (137-145); Total Bilirubin 0.4 mg/dL (0.2-1.3); Total Protein 7.1 g/dL (6.3-8.2)
[2019-06-25 11:56] LABS: Appearance,Urine Turbid (Clear); Bacteria,Urine Many /hpf; Bilirubin,Urine Negative (Negative); Blood,Urine Moderate (Negative); Color,Urine Dark Brown; Glucose,Urine (UA) Negative (Negative); Ketones,Urine 1+ (Negative); Leukocyte Esterase,Urine Small (Negative); Mucus,Urine Many /hpf; Nitrite,Urine Negative (Negative); Protein,Urine 1+ (Negative); RBC,Urine 3 /hpf (0-5); Specific Gravity,Urine 1.032 (1.001-1.035); Squamous Epithelial Cell,Urine 64 /hpf (0-4); WBC,Urine 8 /hpf (0-5)
[2019-06-25 12:28] VITALS: BP 112/62; PULSE 87
[2019-06-25 12:30] VITALS: RESP 20
== END 2019-06-25 12:33 | disposition home or self-care (01) ==
LOC: EC 11:05
DX: R11.10 Vomiting, unspecified (principal); R07.9 Chest pain, unspecified; F17.200 Nicotine dependence, unspecified, uncomplicated; F25.9 Schizoaffective disorder, unspecified; F31.9 Bipolar disorder, unspecified; F41.9 Anxiety disorder, unspecified; Z79.899 Other long term (current) drug therapy; Z88.0 Allergy status to penicillin; Z88.2 Allergy status to sulfonamides; Z88.8 Allergy status to other drugs, medicaments and biological substances
CPT/HCPCS: 36415; 80053; 83690; 85025; 81001; 81025; 99285; 96374; J2405; 93005

== ENCOUNTER 2019-07-04 10:09 | Emergency (ER) | payer OTHER ==
--- NOTE | 2019-07-04 10:36 | ED ---
URI HPI - General Chief Complaint: Upper Respiratory Infection Stated Complaint: Poss pneumonia Time Seen by Provider: 07/04/19 10:14 Source: patient Mode of arrival: ambulatory Limitations: no limitations - History of Present Illness Initial Comments: patient is a 24-year-old female with history of asthma is presenting to the emergency room with a chief complaint of a cough for 2 days. Patient reports she initially developed bilateral ear discomfort for about a week along with a sore throat and sinus congestion. The cough started about 2 days ago and is not productive in nature.she states that she used an inhaler home with minimal improvement. Patient does smoke a pack a day of cigarettes. Patient does report chills but denies any fevers or obtaining her temperature. Denies any nausea vomiting or diarrhea. Patient does feel slightly shortness of breath and some wheezing at home but not currently. Denies taking medication aside from t he inhaler. - Related Data Home Medications Medication Instructions Recorded Confirmed Paliperidone IM [Invega Sustenna] 234 mg IM Q28D 04/14/19 06/25/19 Cetirizine HCl [Zyrtec] 10 mg PO DAILY 05/19/19 06/25/19 QUEtiapine [SEROquel] 200 mg PO HS 05/19/19 06/25/19 Multivitamins, Thera [Multivitamin 1 tab PO DAILY 06/18/19 06/25/19 (formulary)] Triamcinolone Acetonide [Nasacort] 1 spray EA NOSTRIL DAILY 06/18/19 06/25/19 Ibuprofen 800 mg PO Q6H PRN 06/25/19 06/25/19 Methocarbamol [Robaxin] 750 mg PO BID PRN 06/25/19 06/25/19 Previous Rx's Medication Instructions Recorded Benzonatate [Tessalon Perles] 100 mg PO TID PRN #15 capsule 07/04/19 Allergies Allergy/AdvReac Type Severity Reaction Status Date / Time Penicillins Allergy Severe Anaphylaxis Verified 07/04/19 10:13 Sulfa (Sulfonamide Allergy Severe Anaphylaxis Verified 07/04/19 10:13 Antibiotics) diphenhydramine HCl Allergy Nausea Verified 07/04/19 10:13 [From Benadryl] Review of Systems ROS Statement: Those systems with pertinent positive or pertinent negative responses have been documented in the HPI. ROS Other: All systems not noted in ROS Statement are negative. 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 Past Psychological History: Anxiety, Bipolar, Depression, Panic Disorder, PTSD, Schizoaffective Disorder Smoking Status: Current every day smoker Past Alcohol Use History: None Reported Past Drug Use History: Marijuana - Past Family History Mother Family Medical History: No Reported History Father Family Medical History: No Reported History Additional Family Medical History / Comment(s): bipolar, sever seasonal allergies Brother(s) Family Medical History: No Reported History Sister(s) Family Medical History: No Reported History General Exam Limitations: no limitations General appearance: alert, in no apparent distress, in distress Head exam: Present: atraumatic, normocephalic, normal inspection Eye exam: Present: normal appearance, scleral icterus Pupils: Present: normal accommodation ENT exam: Present: normal exam, mucous membranes moist Neck exam: Present: normal inspection, full ROM Respiratory exam: Present: normal lung sounds bilaterally. Absent: wheezes, chest wall tenderness Cardiovascular Exam: Present: normal rhythm, tachycardia, normal heart sounds Extremities exam: Present: normal inspection, full ROM Back exam: Present: normal inspection, full ROM Neurological exam: Present: alert, oriented X3 Psychiatric exam: Present: normal mood, flat affect Skin exam: Present: warm, dry, intact, normal color Course Vital Signs 07/04/19 07/04/19 07/04/19 10:11 10:55 11:04 Temperature 98 F Pulse Rate 105 H 88 88 Respiratory 20 Rate Blood Pressure 131/81 O2 Sat by Pulse 97 Oximetry Medical Decision Making - Medical Decision Making patient is a 24-year-old female presenting to emergency with a chief complaint of a cough for 2 days. physical examination is unremarkable. Patient wheezing or respiratory distress. Chest x-ray unremarkable. Patient given a breathing treatment. Patient reports improvement in symptoms and is ready go home. Patient prescribed Tessalon Perles. Patient has an albuterol inhaler at home. I suspect this is viral bronchitis and is self-limiting. I counseled the patient for smoking cessation for greater than 3 minutes. Patient advised to continue using the inhaler at home. Strict return parameters were thoroughly discussed the patient was understanding and agreeable. Case discussed with physician. Disposition Clinical Impression: Bronchitis, Upper respiratory tract infection Disposition: HOME SELF-CARE Condition: Stable Instructions (If sedation given, give patient instructions): Upper Respiratory Infection (ED) Additional Instructions: please take prescribed medication as directed. Please follow up with primary care. Please return to emergency department if symptoms worsen. Prescriptions: Benzonatate [Tessalon Perles] 100 mg PO TID PRN #15 capsule PRN Reason: Cough Is patient prescribed a controlled substance at d/c from ED?: No Referrals: [facility] [Primary Care Provider] - 1-2 days Time of Disposition: 11:46
[2019-07-04] MEDS: IPRATROPIUM-ALBUTEROL 3 ML NEB INHALATION STA (10:56)
--- NOTE | 2019-07-04 11:43 | XR ---
EXAMINATION TYPE: XR chest 2V DATE OF EXAM: 07/04/2019 COMPARISON: 01/21/2019 HISTORY: Cough, congestion and chest pain TECHNIQUE: Frontal and lateral views of the chest are obtained. FINDINGS: There is no focal air space opacity, pleural effusion, or pneumothorax seen. The cardiac silhouette size is within normal limits. The osseous structures are intact. IMPRESSION: No acute cardiopulmonary process.
[2019-07-04 12:10] VITALS: BP 128/87; PULSE 92; RESP 16; TEMP 97.8
== END 2019-07-04 12:09 | disposition home or self-care (01) ==
LOC: EC 10:09
DX: J40 Bronchitis, not specified as acute or chronic (principal); J06.9 Acute upper respiratory infection, unspecified; F17.200 Nicotine dependence, unspecified, uncomplicated; F41.9 Anxiety disorder, unspecified; F31.9 Bipolar disorder, unspecified; F25.9 Schizoaffective disorder, unspecified; Z79.899 Other long term (current) drug therapy; Z71.6 Tobacco abuse counseling; Z88.0 Allergy status to penicillin; Z88.2 Allergy status to sulfonamides; Z88.8 Allergy status to other drugs, medicaments and biological substances
CPT/HCPCS: 71046; 94640; 99283

== ENCOUNTER 2019-08-15 15:32 | Emergency (ER) | payer OTHER ==
[2019-08-15 15:40] VITALS: BP 113/79; RESP 18; TEMP 98.8
[2019-08-15] MEDS ORDERED: ASPIRIN 81 MG PO STA (16:07)
[2019-08-15] MEDS ORDERED: SODIUM CHLORIDE 0.9% 1,000 ML IV STA (16:07)
--- NOTE | 2019-08-15 16:20 | ED ---
General Adult HPI - General Chief complaint: Chest Pain Stated complaint: Chest pain Time Seen by Provider: 08/15/19 15:47 Source: patient, RN notes reviewed Mode of arrival: ambulatory Limitations: no limitations - History of Present Illness Initial comments: 24-year-old female presents to the emergency department for a chief complaint of chest pain 2 months. Patient states the pain is worsened today. States it starts in the center of her chest it radiates to the sides of her chest. States she has been seeing primary care for this and they ordered a mammogram as sometimes she has color changes in her breasts where they started to appear blue. On examination breast color is within normal limits. She denies any significant shortness of breath. She denies history of blood clots. Patient does have a history of closed head injury as a child.Patient has no other complaints at this time including shortness of breath, abdominal pain, nausea or vomiting, headache, or visual changes. - Related Data Home Medications Medication Instructions Recorded Confirmed Paliperidone IM [Invega Sustenna] 234 mg IM Q28D 04/14/19 06/25/19 Cetirizine HCl [Zyrtec] 10 mg PO DAILY 05/19/19 06/25/19 QUEtiapine [SEROquel] 200 mg PO HS 05/19/19 06/25/19 Multivitamins, Thera [Multivitamin 1 tab PO DAILY 06/18/19 06/25/19 (formulary)] Triamcinolone Acetonide [Nasacort] 1 spray EA NOSTRIL DAILY 06/18/19 06/25/19 Ibuprofen 800 mg PO Q6H PRN 06/25/19 06/25/19 Methocarbamol [Robaxin] 750 mg PO BID PRN 06/25/19 06/25/19 Previous Rx's Medication Instructions Recorded Benzonatate [Tessalon Perles] 100 mg PO TID PRN #15 capsule 07/04/19 Allergies Allergy/AdvReac Type Severity Reaction Status Date / Time Penicillins Allergy Severe Anaphylaxis Verified 08/15/19 15:36 Sulfa (Sulfonamide Allergy Severe Anaphylaxis Verified 08/15/19 15:36 Antibiotics) diphenhydramine HCl Allergy Nausea Verified 08/15/19 15:36 [From Benadryl] Review of Systems ROS Statement: Those systems with pertinent positive or pertinent negative responses have been documented in the HPI. ROS Other: All systems not noted in ROS Statement are negative. 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 Past Psychological History: Anxiety, Bipolar, Depression, Panic Disorder, PTSD, Schizoaffective Disorder Smoking Status: Current every day smoker Past Alcohol Use History: None Reported Past Drug Use History: Marijuana - Past Family History Mother Family Medical History: No Reported History Father Family Medical History: No Reported History Additional Family Medical History / Comment(s): bipolar, sever seasonal allergies Brother(s) Family Medical History: No Reported History Sister(s) Family Medical History: No Reported History General Exam Limitations: no limitations General appearance: alert, in no apparent distress Head exam: Present: atraumatic, normocephalic, normal inspection Eye exam: Present: normal appearance, PERRL, EOMI. Absent: scleral icterus, conjunctival injection, periorbital swelling ENT exam: Present: normal exam, mucous membranes moist Neck exam: Present: normal inspection, full ROM. Absent: tenderness, meningismus, lymphadenopathy Respiratory exam: Present: normal lung sounds bilaterally. Absent: respiratory distress, wheezes, rales, rhonchi, stridor Cardiovascular Exam: Present: regular rate, normal rhythm, normal heart sounds. Absent: systolic murmur, diastolic murmur, rubs, gallop, clicks GI/Abdominal exam: Present: soft, normal bowel sounds. Absent: distended, tenderness, guarding, rebound, rigid Neurological exam: Present: alert Course Vital Signs 08/15/19 08/15/19 15:36 16:36 Temperature 98.8 F Pulse Rate 117 H 97 Respiratory 18 18 Rate Blood Pressure 113/79 O2 Sat by Pulse 100 100 Oximetry Medical Decision Making - Medical Decision Making After lab work was sent patient pressed call light and is requesting to leave AGAINST MEDICAL ADVICE. States she does not want to stay for results. Patient is aware of risks of leaving including being unable to evaluate for pulmonary embolism and life threatening condition that this could cause. Guardian was con tacted as well. Guardian is aware the patient is leaving AGAINST MEDICAL ADVICE. RN contacted guardian. I did follow-up on results and dimer is within normal limits, troponin is negative. Patient refused EKG and chest x-ray unfortunately. - Lab Data Lab Results 08/15/19 08/15/19 08/15/19 Range/Units 15:47 15:47 16:18 D-Dimer 0.34 (<0.60) mg/L FEU Troponin I <0.012 (0.000-0.034) ng/mL Urine Color Urine Appearance (Clear) Urine pH (5.0-8.0) Ur Specific [place] (1.001-1.035) Urine Protein (Negative) Urine Glucose (UA) (Negative) Urine Ketones (Negative) Urine Blood (Negative) Urine Nitrite (Negative) Urine Bilirubin (Negative) Urine Urobilinogen (<2.0) mg/dL Ur Leukocyte Esterase (Negative) Urine WBC (0-5) /hpf Ur Squamous Epith Cells (0-4) /hpf Calcium Oxalate Crystal (None) /hpf Amorphous Sediment (None) /hpf Urine Mucus (None) /hpf Urine HCG, Qual Not Detected (Not Detectd) 08/15/19 Range/Units 16:18 D-Dimer (<0.60) mg/L FEU Troponin I (0.000-0.034) ng/mL Urine Color Yellow Urine Appearance Clear (Clear) Urine pH 6.0 (5.0-8.0) Ur Specific [place] 1.026 (1.001-1.035) Urine Protein Trace H (Negative) Urine Glucose (UA) Negative (Negative) Urine Ketones Negative (Negative) Urine Blood Trace H (Negative) Urine Nitrite Negative (Negative) Urine Bilirubin Negative (Negative) Urine Urobilinogen 2.0 (<2.0) mg/dL Ur Leukocyte Esterase Trace H (Negative) Urine WBC 6 H (0-5) /hpf Ur Squamous Epith Cells 4 (0-4) /hpf Calcium Oxalate Crystal Rare H (None) /hpf Amorphous Sediment Rare H (None) /hpf Urine Mucus Few H (None) /hpf Urine HCG, Qual (Not Detectd) Disposition Clinical Impression: Chest pain Disposition: Left Against Medical Advice Instructions (If sedation given, give patient instructions): Chest Pain (ED) Additional Instructions: Please follow up with primary care this week. If you have any worsening symptoms you need to return immediately to the emergency department. Is patient prescribed a controlled substance at d/c from ED?: No Referrals: Lauren Denson MD [Primary Care Provider] - 1-2 days Time of Disposition: 16:28
[2019-08-15 16:37] VITALS: PULSE 97
[2019-08-15 17:03] LABS: Amorphous Sediment,Urine Rare /hpf; Appearance,Urine Clear (Clear); Bilirubin,Urine Negative (Negative); Blood,Urine Trace (Negative); Calcium Oxalate Crystals,Urine Rare /hpf; Color,Urine Yellow; Glucose,Urine (UA) Negative (Negative); Ketones,Urine Negative (Negative); Leukocyte Esterase,Urine Trace (Negative); Mucus,Urine Few /hpf; Nitrite,Urine Negative (Negative); Protein,Urine Trace (Negative); Specific Gravity,Urine 1.026 (1.001-1.035); Squamous Epithelial Cell,Urine 4 /hpf (0-4); WBC,Urine 6 /hpf (0-5)
--- NOTE | 2019-08-18 05:07 | CDI ---
Documentation Clarification OP Dear Yunior Pacheco, PAC Please clarify whether EKG has done or not. In facility has billed [id number] but has refused the EKG. Thank you, Jon [place] Operator If you have any questions, please contact [facility] at [phone] Apparently EKG was obtained/scanned but was never given to me or signed by me. Patient had left AMA. MTDD
== END 2019-08-15 16:53 | disposition left against medical advice (07) ==
LOC: EC 15:32
DX: R07.9 Chest pain, unspecified (principal); F25.0 Schizoaffective disorder, bipolar type; F25.1 Schizoaffective disorder, depressive type; F17.200 Nicotine dependence, unspecified, uncomplicated; Z87.01 Personal history of pneumonia (recurrent); Z87.09 Personal history of other diseases of the respiratory system; Z79.899 Other long term (current) drug therapy; Z88.0 Allergy status to penicillin; Z88.2 Allergy status to sulfonamides; Z88.8 Allergy status to other drugs, medicaments and biological substances; Z53.8 Procedure and treatment not carried out for other reasons
CPT/HCPCS: 36415; 81001; 81025; 84484; 85379; 93005; 99285

== ENCOUNTER → 2019-08-18 | Outpatient (CLI) | payer OTHER ==
--- NOTE | 2019-08-18 09:16 | USB ---
Reason for exam: clinical finding. History: Taking hormonal contraceptives for 3 years beginning at age 21. Physical Findings: Nurse did not find any significant physical abnormalities on exam. US Breast Limited BILAT Right limited breast ultrasound including focal area of concern, retroareolar and axilla demonstrates including area of concern. Left complete breast ultrasound includes all four quadrants, the retroareolar region and axilla. Finding demonstrates no cystic or solid lesion seen. No suspicious sonographic finding. These results were verbally communicated with the patient and result sheet given to the patient on 08/18/19. ASSESSMENT: Negative, BI-RAD 1 RECOMMENDATION: Routine screening mammogram of both breasts at age 40. (or sooner if clinically indicated) Manage patient on a clinical basis.
== END | disposition home or self-care (01) ==
LOC: RADMAMWWP 07:48
PROVIDERS: ATTEND Family Medicine
DX: N64.4 Mastodynia (principal); L81.9 Disorder of pigmentation, unspecified

== ENCOUNTER 2019-09-02 06:11 | Emergency (ER) | payer OTHER ==
[2019-09-02 06:21] VITALS: BP 112/74; PULSE 100; RESP 20; TEMP 98.2
--- NOTE | 2019-09-02 07:01 | ED ---
Female Urogenital HPI - General Chief complaint: Urogenital Stated complaint: lower back/abd pain Time Seen by Provider: 09/02/19 06:22 Source: patient, RN notes reviewed, old records reviewed Mode of arrival: ambulatory Limitations: no limitations - History of Present Illness Initial comments: Patient is a 24-year-old female who presents to the ED for chief complaint of dyspnea [place] infection. She is treated with intravaginal cream and finished a treatment 3 days ago. She reports over the past 2 days she's had some dysuria. She is currently on Depo-Provera shot. Last menstrual period was 6 months ago. Patient reports that she's had no fevers or chills. - Related Data Home Medications Medication Instructions Recorded Confirmed Paliperidone IM [Invega Sustenna] 234 mg IM Q28D 04/14/19 06/25/19 Cetirizine HCl [Zyrtec] 10 mg PO DAILY 05/19/19 06/25/19 QUEtiapine [SEROquel] 200 mg PO HS 05/19/19 06/25/19 Multivitamins, Thera [Multivitamin 1 tab PO DAILY 06/18/19 06/25/19 (formulary)] Triamcinolone Acetonide [Nasacort] 1 spray EA NOSTRIL DAILY 06/18/19 06/25/19 Ibuprofen 800 mg PO Q6H PRN 06/25/19 06/25/19 Methocarbamol [Robaxin] 750 mg PO BID PRN 06/25/19 06/25/19 Previous Rx's Medication Instructions Recorded Benzonatate [Tessalon Perles] 100 mg PO TID PRN #15 capsule 07/04/19 Fluconazole [Diflucan] 150 mg PO ONCE #3 tab 09/02/19 Allergies Allergy/AdvReac Type Severity Reaction Status Date / Time Penicillins Allergy Severe Anaphylaxis Verified 09/02/19 06:20 Sulfa (Sulfonamide Allergy Severe Anaphylaxis Verified 09/02/19 06:20 Antibiotics) diphenhydramine HCl Allergy Nausea Verified 09/02/19 06:20 [From Benadryl] Review of Systems ROS Statement: Those systems with pertinent positive or pertinent negative responses have been documented in the HPI. ROS Other: All systems not noted in ROS Statement are negative. 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 Past Psychological History: Anxiety, Bipolar, Depression, Panic Disorder, PTSD, Schizoaffective Disorder Smoking Status: Current every day smoker Past Alcohol Use History: None Reported Past Drug Use History: Marijuana - Past Family History Mother Family Medical History: No Reported History Father Family Medical History: No Reported History Additional Family Medical History / Comment(s): bipolar, sever seasonal allergies Brother(s) Family Medical History: No Reported History Sister(s) Family Medical History: No Reported History General Exam - General Exam Comments Initial Comments: 24-year-old female. Alert and oriented. No significant distress. Limitations: no limitations General appearance: alert, in no apparent distress Head exam: Present: atraumatic, normocephalic, normal inspection Eye exam: Present: normal appearance, PERRL, EOMI. Absent: scleral icterus, conjunctival injection, periorbital swelling ENT exam: Present: normal exam, mucous membranes moist Neck exam: Present: normal inspection. Absent: tenderness, meningismus, lymphadenopathy Respiratory exam: Present: normal lung sounds bilaterally. Absent: respiratory distress, wheezes, rales, rhonchi, stridor Cardiovascular Exam: Present: regular rate, normal rhythm, normal heart sounds. Absent: systolic murmur, diastolic murmur, rubs, gallop, clicks GI/Abdominal exam: Present: soft, normal bowel sounds. Absent: distended, tenderness, guarding, rebound, rigid External exam: Present: normal external exam Speculum exam: Present: vaginal discharge (Minimal white adherent vaginal discharge.). Absent: normal speculum exam, cervical discharge, vaginal bleeding, foreign body By manual exam: Present: normal by manual exam. Absent: cervical motion tenderness, adnexal tenderness Extremities exam: Present: normal inspection, full ROM, normal capillary refill. Absent: tenderness, pedal edema, joint swelling, calf tenderness Back exam: Present: normal inspection, full ROM Neurological exam: Present: alert, oriented X3, CN II-XII intact Psychiatric exam: Present: normal affect, normal mood Skin exam: Present: warm, dry, intact, normal color. Absent: rash Course Vital Signs 09/02/19 06:18 Temperature 98.2 F Pulse Rate 100 Respiratory 20 Rate Blood Pressure 112/74 O2 Sat by Pulse 98 Oximetry Medical Decision Making - Medical Decision Making 24-year-old female presents emergency department today for chief complaint of vaginal discharge and vaginal clotrimazole. She has treatment 2 days ago. At this time Patient is still having white adherent discharge. Patient has had normal UA. Urine hCG is negative. Discussed treatment at this time with oral Diflucan. Patient advised follow-up with primary care doctor. All questions answered. - Lab Data Lab Results 09/02/19 09/02/19 09/02/19 Range/Units 06:56 06:56 06:56 Urine Color Yellow Urine Appearance Cloudy H (Clear) Urine pH 5.5 (5.0-8.0) Ur Specific [place] 1.023 (1.001-1.035) Urine Protein Negative (Negative) Urine Glucose (UA) Negative (Negative) Urine Ketones Negative (Negative) Urine Blood Negative (Negative) Urine Nitrite Negative (Negative) Urine Bilirubin Negative (Negative) Urine Urobilinogen <2.0 (<2.0) mg/dL Ur Leukocyte Esterase Negative (Negative) Urine RBC 8 H (0-5) /hpf Urine WBC 5 (0-5) /hpf Ur Squamous Epith Cells 5 H (0-4) /hpf Urine Bacteria Rare H (None) /hpf Urine Mucus Rare H (None) /hpf Urine HCG, Qual Not Detected (Not Detectd) Trichomonas Ag (Rapid) Negative (Negative) Disposition Clinical Impression: Yeast infection Disposition: HOME SELF-CARE Condition: Good Instructions (If sedation given, give patient instructions): Yeast Infection (ED) Additional Instructions: Please use medication as discussed. Please follow up with family doctor if symptoms have not improved over the next two days. Please return to the emergency room if your symptoms increase or worsen or for any other concerns. Prescriptions: Fluconazole [Diflucan] 150 mg PO ONCE #3 tab Is patient prescribed a controlled substance at d/c from ED?: No Referrals: Lauren Denson MD [Primary Care Provider] - 1-2 days Time of Disposition: 07:40
[2019-09-02 07:38] LABS: Appearance,Urine Cloudy (Clear); Bacteria,Urine Rare /hpf; Bilirubin,Urine Negative (Negative); Blood,Urine Negative (Negative); Color,Urine Yellow; Glucose,Urine (UA) Negative (Negative); Ketones,Urine Negative (Negative); Leukocyte Esterase,Urine Negative (Negative); Mucus,Urine Rare /hpf; Nitrite,Urine Negative (Negative); PH, Urine 5.5 (5.0-8.0); Protein,Urine Negative (Negative); RBC,Urine 8 /hpf (0-5); Specific Gravity,Urine 1.023 (1.001-1.035); Squamous Epithelial Cell,Urine 5 /hpf (0-4); Urobilinogen,Urine <2.0 mg/dL (<2.0); WBC,Urine 5 /hpf (0-5)
[2019-09-03 15:57] LABS: C. trachomatis,PCR Negative (Neg,Equiv); Chlamydia trachomatis Source Vagina
[2019-09-03 16:03] LABS: N. gonorrhoeae,PCR Negative (Neg,Equiv); Neisseria Source Vagina
== END 2019-09-02 08:03 | disposition home or self-care (01) ==
LOC: EC 06:11
DX: B37.9 Candidiasis, unspecified (principal); F25.9 Schizoaffective disorder, unspecified; J45.909 Unspecified asthma, uncomplicated; F41.9 Anxiety disorder, unspecified; F31.9 Bipolar disorder, unspecified; F17.200 Nicotine dependence, unspecified, uncomplicated; Z79.899 Other long term (current) drug therapy; Z88.0 Allergy status to penicillin; Z88.2 Allergy status to sulfonamides; Z88.8 Allergy status to other drugs, medicaments and biological substances
CPT/HCPCS: 81001; 81025; 87070; 87491; 87591; 87808; 99284

== ENCOUNTER 2019-09-06 04:34 | Emergency (ER) | payer OTHER ==
[2019-09-06 04:43] VITALS: BP 118/82; PULSE 99; RESP 20; TEMP 98.3
--- NOTE | 2019-09-06 05:45 | ED ---
General Adult HPI - General Chief complaint: Abdominal Pain Stated complaint: Abd Pain,Nausea Time Seen by Provider: 09/06/19 04:56 Source: patient, family Mode of arrival: ambulatory Limitations: no limitations - History of Present Illness Initial comments: Radha is a 24-year-old female very well-known to our emergency department for her frequent visits. Patient returns today for reevaluation of lower abdominal pain and vaginal discharge. Patient reports that she was evaluated in the emergency department and told she had a yeast infection however she states she is actually concerned she has sexual transmitted infection. Patient reports she noticed some oranges vaginal discharge. She is sexually active she does not always use protection. - Related Data Home Medications Medication Instructions Recorded Confirmed Paliperidone IM [Invega Sustenna] 234 mg IM Q28D 04/14/19 06/25/19 Cetirizine HCl [Zyrtec] 10 mg PO DAILY 05/19/19 06/25/19 QUEtiapine [SEROquel] 200 mg PO HS 05/19/19 06/25/19 Multivitamins, Thera [Multivitamin 1 tab PO DAILY 06/18/19 06/25/19 (formulary)] Triamcinolone Acetonide [Nasacort] 1 spray EA NOSTRIL DAILY 06/18/19 06/25/19 Ibuprofen 800 mg PO Q6H PRN 06/25/19 06/25/19 Methocarbamol [Robaxin] 750 mg PO BID PRN 06/25/19 06/25/19 Previous Rx's Medication Instructions Recorded Benzonatate [Tessalon Perles] 100 mg PO TID PRN #15 capsule 07/04/19 Fluconazole [Diflucan] 150 mg PO ONCE #3 tab 09/02/19 Allergies Allergy/AdvReac Type Severity Reaction Status Date / Time Penicillins Allergy Severe Anaphylaxis Verified 09/06/19 04:43 Sulfa (Sulfonamide Allergy Severe Anaphylaxis Verified 09/06/19 04:43 Antibiotics) diphenhydramine HCl Allergy Nausea Verified 09/06/19 04:43 [From Benadryl] Review of Systems ROS Statement: Those systems with pertinent positive or pertinent negative responses have been documented in the HPI. ROS Other: All systems not noted in ROS Statement are negative. 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 Past Psychological History: Anxiety, Bipolar, Depression, Panic Disorder, PTSD, Schizoaffective Disorder Smoking Status: Current every day smoker Past Alcohol Use History: None Reported Past Drug Use History: Marijuana - Past Family History Mother Family Medical History: No Reported History Father Family Medical History: No Reported History Additional Family Medical History / Comment(s): bipolar, sever seasonal allergies Brother(s) Family Medical History: No Reported History Sister(s) Family Medical History: No Reported History General Exam - General Exam Comments Initial Comments: Physical Exam GENERAL: Patient is well-developed and well-nourished. Patient is nontoxic and well-hydrated and is in no distress. HENT: Normocephalic, Atraumatic. EYES: PERRL, EOMI PULMONARY: Unlabored respirations. CARDIOVASCULAR: RRR Warm and well perfused extremities ABDOMEN: Non-distended SKIN: No rashes or bruising : Patient refused NEUROLOGIC: Alert and oriented Normal speech Normal gait MUSCULOSKELETAL: Moving all extremities with no apparent injury PSYCHIATRIC: No SI/HI Limitations: no limitations Course Vital Signs 09/06/19 04:40 Temperature 98.3 F Pulse Rate 99 Respiratory 20 Rate Blood Pressure 118/82 O2 Sat by Pulse 99 Oximetry Medical Decision Making - Medical Decision Making The patient was seen and evaluated history was obtained patient would medical record. This is a 24-year-old female with concern for exposure to sexually transmitted infection, patient has been treated multiple times in the past this. Patient continues to have unprotected sex. Patient reports no concern for as she is compliant with her depo injections. Patient declines pelvic exam request to be treated. STI testing will be obtained via urine sample. Patient treated with IM Rocephin and azithromycin. Patient discharged in stable condition. Patient's partner checked and it was treated as well. - Lab Data Lab Results 09/06/19 09/06/19 Range/Units 05:49 05:49 Urine Color Yellow Urine Appearance Clear (Clear) Urine pH 6.0 (5.0-8.0) Ur Specific [place] 1.025 (1.001-1.035) Urine Protein Negative (Negative) Urine Glucose (UA) Negative (Negative) Urine Ketones Negative (Negative) Urine Blood Negative (Negative) Urine Nitrite Negative (Negative) Urine Bilirubin Negative (Negative) Urine Urobilinogen <2.0 (<2.0) mg/dL Ur Leukocyte Esterase Negative (Negative) Urine HCG, Qual Not Detected (Not Detectd) Disposition Clinical Impression: Exposure to sexually transmitted disease (STD) Disposition: HOME SELF-CARE Condition: Stable Instructions (If sedation given, give patient instructions): Safe Sex (ED) Is patient prescribed a controlled substance at d/c from ED?: No Referrals: Lauren Denson MD [Primary Care Provider] - 1-2 days
[2019-09-06 05:58] LABS: Appearance,Urine Clear (Clear); Bilirubin,Urine Negative (Negative); Blood,Urine Negative (Negative); Color,Urine Yellow; Glucose,Urine (UA) Negative (Negative); Ketones,Urine Negative (Negative); Leukocyte Esterase,Urine Negative (Negative); Nitrite,Urine Negative (Negative); Protein,Urine Negative (Negative); Specific Gravity,Urine 1.025 (1.001-1.035); Urobilinogen,Urine <2.0 mg/dL (<2.0)
[2019-09-06] MEDS ORDERED: AZITHROMYCIN 500 MG TAB PO STA (05:58)
[2019-09-06] MEDS ORDERED: cefTRIAXone 250 MG VIAL IM STA (05:58)
[2019-09-08 08:16] LABS: C. trachomatis,PCR Negative (Neg,Equiv); Chlamydia trachomatis Source Urine
[2019-09-08 08:33] LABS: N. gonorrhoeae,PCR Negative (Neg,Equiv); Neisseria Source Urine
== END 2019-09-06 06:48 | disposition home or self-care (01) ==
LOC: EC 04:34
DX: Z20.2 Contact with and (suspected) exposure to infections with a predominantly sexual mode of transmission (principal); F41.0 Panic disorder [episodic paroxysmal anxiety]; F31.9 Bipolar disorder, unspecified; F25.9 Schizoaffective disorder, unspecified; F17.200 Nicotine dependence, unspecified, uncomplicated; Z79.899 Other long term (current) drug therapy; Z88.0 Allergy status to penicillin; Z88.2 Allergy status to sulfonamides; Z88.8 Allergy status to other drugs, medicaments and biological substances
CPT/HCPCS: 81003; 81025; 87491; 87591; 99284; 96372; J0696

== ENCOUNTER → 2019-09-16 | Outpatient (CLI) | payer OTHER ==
--- NOTE | 2019-09-16 10:17 | US ---
EXAMINATION TYPE: US gallbladder DATE OF EXAM: 09/16/2019 COMPARISON: NONE CLINICAL HISTORY: K81.1 Cholecystitis. EXAM MEASUREMENTS: Liver Length: 11.3 cm Gallbladder Wall: 0.2 cm CBD: 0.3 cm Right Kidney: 11.3 x 3.9 x 5.2 cm Pancreas: Tail obscured by overlying bowel gas Liver: wnl Gallbladder: wnl Evidence for sonographic Burr's sign: no CBD: wnl Right Kidney: wnl IMPRESSION: No sonographic evidence of cholelithiasis nor acute cholecystitis.
== END | disposition home or self-care (01) ==
LOC: RADUSWWP 09:35
PROVIDERS: ATTEND Surgery
DX: K81.1 Chronic cholecystitis (principal)
CPT/HCPCS: 76705

== ENCOUNTER 2019-09-17 09:31 | Day surgery (SDC) | payer OTHER ==
[2019-09-17] MEDS ORDERED: LACTATED RINGERS 1,000 ML IV ONE (10:15)
[2019-09-17 10:21] VITALS: TEMP 98.5
[2019-09-17] MEDS ORDERED: PROPOFOL 10 MG/ML 20 ML VIAL IV ONE (10:33)
[2019-09-17] MEDS ORDERED: LIDOCAINE 1% INJ 10MG/ML (20 ML MDV) ONE (10:33)
[2019-09-17] MEDS ORDERED: GLYCOPYRROLATE 0.2 MG/ML 2 ML VIAL ONE (10:33)
[2019-09-17] MEDS ORDERED: MIDAZOLAM 2 MG/2 ML VIAL ONE (10:33)
--- NOTE | 2019-09-17 10:54 | P.GSHP ---
History of Present Illness H&P Date: 09/17/19 Chief Complaint: GI bleed Is a 24-year-old female who presents today for EGD and colonoscopy. She's had issues with GI bleed. 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 Past Psychological History: Anxiety, Bipolar, Depression, Panic Disorder, PTSD, Schizoaffective Disorder Smoking Status: Current every day smoker Past Alcohol Use History: None Reported Past Drug Use History: Marijuana - Past Family History Mother Family Medical History: No Reported History Father Family Medical History: No Reported History Additional Family Medical History / Comment(s): bipolar, sever seasonal allergies Brother(s) Family Medical History: No Reported History Sister(s) Family Medical History: No Reported History Medications and Allergies Home Medications Medication Instructions Recorded Confirmed Type Cetirizine HCl [Zyrtec] 10 mg PO DAILY 05/19/19 06/25/19 History ARIPiprazole IM SYRINGE [Abilify 400 mg IM 09/17/19 09/17/19 History Maintena Syringe] Allergies Allergy/AdvReac Type Severity Reaction Status Date / Time Penicillins Allergy Severe Anaphylaxis Verified 09/17/19 10:08 Sulfa (Sulfonamide Allergy Severe Anaphylaxis Verified 09/17/19 10:08 Antibiotics) diphenhydramine HCl Allergy Nausea Verified 09/17/19 10:08 [From Benadryl] Surgical - Exam Vital Signs Temp Pulse Resp BP Pulse Ox 98.5 F 101 H 17 115/63 97 09/17/19 10:15 09/17/19 10:15 09/17/19 10:15 09/17/19 10:15 09/17/19 10:15 - General well developed, well nourished, no distress - Eyes PERRL - ENT normal pinna - Neck no masses - Respiratory normal expansion - Cardiovascular Rhythm: regular - Abdomen Abdomen: soft, non tender Assessment and Plan Assessment: GI bleed. We'll perform EGD and colonoscopy
--- NOTE | 2019-09-17 11:16 | P.OP ---
Date of Procedure: 09/17/19 Preoperative Diagnosis: GI bleed Postoperative Diagnosis: Antral gastritis Mild esophagitis Mild diverticulosis No evidence of GI bleed Procedure(s) Performed: EGD Colonoscopy Anesthesia: MAC Surgeon: Dennis Coburn Pathology: other (Antrum, esophagus) Condition: stable Disposition: PACU Description of Procedure: Patient's placed on the endoscopy table in the lateral position. She received IV sedation. The gastroscope placed oropharynx passed in the esophagus and into the stomach. Scope was then placed through the pylorus. The first and second portion of the duodenum appeared normal. Scope summer back the antrum inflamed. A biopsies performed. The scope was unretroflexed and remainder the stomach appeared normal. The GE junction was at 47 is. The distal esophagus appeared inflamed a biopsies performed. The proximal esophagus appeared normal. There is known to blood in the upper GI tract. Next digital rectal exam was performed which revealed a few internal hemorrhoids. The flexible colonoscope was then placed patient anus passed rotator entire colon. The ileocecal valve was visually is. The cecum, ascending and transverse colon appeared normal. In the descending; was mild diverticular changes. The scope was then docked back the rectum and this appeared normal. Scope was then withdrawn from the patient. There is no on to GI bleed. His resume that the patient's GI bleed male been due to her internal hemorrhoids.
[2019-09-17] MEDS ORDERED: LIDOCAINE 1% 20 ML VIAL (10MG/ML) FOR IV START INTRADERMA PRN (11:37)
[2019-09-17] MEDS ORDERED: LACTATED RINGERS 1,000 ML IV SCH (11:37)
[2019-09-17 12:09] VITALS: BP 109/66; PULSE 86; RESP 18
== END 2019-09-17 12:08 | disposition home or self-care (01) ==
LOC: ORWHC2ENDO 09:31
PROVIDERS: ATTEND Surgery
DX: K29.51 Unspecified chronic gastritis with bleeding (principal); K21.0 Gastro-esophageal reflux disease with esophagitis; K57.30 Diverticulosis of large intestine without perforation or abscess without bleeding; K64.8 Other hemorrhoids; J45.909 Unspecified asthma, uncomplicated; R74.8 Abnormal levels of other serum enzymes; L40.9 Psoriasis, unspecified; I95.9 Hypotension, unspecified; G43.909 Migraine, unspecified, not intractable, without status migrainosus; F41.9 Anxiety disorder, unspecified; F31.9 Bipolar disorder, unspecified; F41.0 Panic disorder [episodic paroxysmal anxiety]; F43.10 Post-traumatic stress disorder, unspecified; F25.9 Schizoaffective disorder, unspecified; F17.200 Nicotine dependence, unspecified, uncomplicated; K08.89 Other specified disorders of teeth and supporting structures; Z87.01 Personal history of pneumonia (recurrent); Z87.442 Personal history of urinary calculi; Z87.820 Personal history of traumatic brain injury; Z98.890 Other specified postprocedural states; Z79.899 Other long term (current) drug therapy; Z88.0 Allergy status to penicillin; Z88.2 Allergy status to sulfonamides; Z88.8 Allergy status to other drugs, medicaments and biological substances; Z81.8 Family history of other mental and behavioral disorders; Z83.6 Family history of other diseases of the respiratory system
CPT/HCPCS: 81025; 88305; 84703; 45378; 43239; J2250; J2001; J2704

== ENCOUNTER 2019-10-01 17:50 | Emergency (ER) | payer OTHER ==
[2019-10-01 18:20] VITALS: TEMP 98.5
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
[2019-10-01] MEDS ORDERED: cefTRIAXone 250 MG VIAL IM STA (19:11)
[2019-10-01] MEDS ORDERED: AZITHROMYCIN 500 MG TAB PO STA (19:11)
[2019-10-01 19:14] LABS: Appearance,Urine Clear (Clear); Bilirubin,Urine Negative (Negative); Blood,Urine Negative (Negative); Color,Urine Yellow; Glucose,Urine (UA) Negative (Negative); Ketones,Urine Negative (Negative); Leukocyte Esterase,Urine Negative (Negative); Nitrite,Urine Negative (Negative); PH, Urine 7.5 (5.0-8.0); Protein,Urine Negative (Negative); Specific Gravity,Urine 1.015 (1.001-1.035); Urobilinogen,Urine <2.0 mg/dL (<2.0)
[2019-10-01 19:25] LABS: Amphetamine Screen,Urine Not Detected (NotDetected); Barbiturate Screen,Urine Not Detected (NotDetected); Benzodiazepines Screen,Urine Not Detected (NotDetected); Cocaine Screen,Urine Not Detected (NotDetected); Methadone Screen, Urine Not Detected (NotDetected); Opiate Screen,Urine Not Detected (NotDetected); Oxycodone Screen, Urine Not Detected (NotDetected); Phencyclidine Screen,Urine Not Detected (NotDetected); Tricyclic Antidepressant,Urine Not Detected (NotDetected); Urn Cannabinoid Scrn Detected (NotDetected)
[2019-10-01 19:37] VITALS: BP 116/75; PULSE 92; RESP 18
[2019-10-03 16:17] LABS: C. trachomatis,PCR Negative (Neg,Equiv); Chlamydia trachomatis Source Urine; N. gonorrhoeae,PCR Negative (Neg,Equiv); Neisseria Source Urine
== END 2019-10-01 20:00 | disposition home or self-care (01) ==
LOC: EC 17:50
DX: Z11.3 Encounter for screening for infections with a predominantly sexual mode of transmission (principal); R42 Dizziness and giddiness; F32.9 Major depressive disorder, single episode, unspecified; F41.9 Anxiety disorder, unspecified; F25.9 Schizoaffective disorder, unspecified; F17.200 Nicotine dependence, unspecified, uncomplicated; Z79.899 Other long term (current) drug therapy; Z88.0 Allergy status to penicillin; Z88.2 Allergy status to sulfonamides; Z88.8 Allergy status to other drugs, medicaments and biological substances
CPT/HCPCS: 81003; 81025; 87491; 87591; 80306; 99284; 96372; J0696

== ENCOUNTER 2019-10-02 04:46 | Emergency (ER) | payer OTHER ==
[2019-10-02] MEDS ORDERED: MAG HYDROX/AL HYDROX/SIMETH 30 ML, HYOSCYAMINE ELIXIR 10 ML, LIDOCAINE VISCOUS 2% 10 ML PO STA ×3 (05:14)
[2019-10-02] MEDS ORDERED: ACETAMINOPHEN TAB 325 MG TAB PO STA (05:46)
--- NOTE | 2019-10-02 06:35 | ED ---
General Adult HPI - General Chief complaint: Dizziness Stated complaint: Dizzy Time Seen by Provider: 10/02/19 05:05 Source: patient Mode of arrival: ambulatory - History of Present Illness Initial comments: Patient is 24-year-old woman who has a constellation of complaints that include feeling dizzy, having burning pain in the epigastric area that radiates the substernal area. And feeling fatigued. -: hour(s) Location: chest, abdomen Quality: burning Consistency: constant Improves with: none Worsens with: none Associated Symptoms: other (Dizziness) Treatments Prior to Arrival: none - Related Data Home Medications Medication Instructions Recorded Confirmed Cetirizine HCl [Zyrtec] 10 mg PO DAILY 05/19/19 10/08/19 ARIPiprazole IM SYRINGE [Abilify 400 mg IM Q28D 09/17/19 10/08/19 Maintena Syringe] Albuterol Sulfate [Albuterol 2 puff PO RT-Q4H PRN 10/08/19 10/08/19 Sulfate Hfa] Allergies Allergy/AdvReac Type Severity Reaction Status Date / Time Penicillins Allergy Severe Anaphylaxis Verified 10/02/19 04:59 Sulfa (Sulfonamide Allergy Severe Anaphylaxis Verified 10/02/19 04:59 Antibiotics) diphenhydramine HCl Allergy Nausea Verified 10/02/19 04:59 [From Benadryl] Review of Systems ROS Statement: Those systems with pertinent positive or pertinent negative responses have been documented in the HPI. ROS Other: All systems not noted in ROS Statement are negative. Constitutional: Denies: fever, chills Respiratory: Denies: cough, dyspnea Cardiovascular: Denies: chest pain, palpitations, orthopnea, syncope Endocrine: Reports: fatigue Gastrointestinal: Reports: as per HPI, abdominal pain. 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 Past Psychological History: Anxiety, Bipolar, Depression, Panic Disorder, PTSD, Schizoaffective Disorder Smoking Status: Current every day smoker Past Alcohol Use History: None Reported Past Drug Use History: Marijuana - Past Family History Mother Family Medical History: No Reported History Father Family Medical History: No Reported History Additional Family Medical History / Comment(s): bipolar, sever seasonal allergies Brother(s) Family Medical History: No Reported History Sister(s) Family Medical History: No Reported History General Exam General appearance: alert, in no apparent distress Head exam: Present: atraumatic, normocephalic Eye exam: Present: normal appearance. Absent: scleral icterus, conjunctival injection ENT exam: Present: normal oropharynx Neck exam: Present: normal inspection Respiratory exam: Present: normal lung sounds bilaterally. Absent: respiratory distress, wheezes, rales, rhonchi, stridor Cardiovascular Exam: Present: regular rate, normal rhythm, normal heart sounds. Absent: systolic murmur, diastolic murmur, rubs, gallop GI/Abdominal exam: Present: soft, tenderness (Mild epigastric tenderness without rebound or guarding). Absent: distended, guarding, rebound, rigid, mass, pulsatile mass, hernia Extremities exam: Present: normal inspection, normal capillary refill. Absent: pedal edema, calf tenderness Back exam: Present: normal inspection. Absent: CVA tenderness (R), CVA tenderness (L) Neurological exam: Present: alert Skin exam: Present: warm, dry, intact, normal color. Absent: rash Course Vital Signs 10/02/19 10/02/19 10/02/19 04:54 05:16 06:46 Temperature 97.8 F 98.8 F 98.7 F Pulse Rate 104 H 99 87 Respiratory 16 18 17 Rate Blood Pressure 117/80 108/65 90/57 O2 Sat by Pulse 100 98 98 Oximetry Disposition Clinical Impression: Gastritis Disposition: HOME SELF-CARE Condition: Good Instructions (If sedation given, give patient instructions): Gastritis (ED) Is patient prescribed a controlled substance at d/c from ED?: No Referrals: Lauren Denson MD [Primary Care Provider] - 1-2 days
[2019-10-02 06:47] VITALS: BP 90/57; PULSE 87; RESP 17; TEMP 98.7
== END 2019-10-02 06:56 | disposition home or self-care (01) ==
LOC: EC 04:46
DX: K29.70 Gastritis, unspecified, without bleeding (principal); R53.83 Other fatigue; R42 Dizziness and giddiness; J45.909 Unspecified asthma, uncomplicated; K21.9 Gastro-esophageal reflux disease without esophagitis; F31.9 Bipolar disorder, unspecified; F25.9 Schizoaffective disorder, unspecified; F17.200 Nicotine dependence, unspecified, uncomplicated; Z88.0 Allergy status to penicillin; Z88.2 Allergy status to sulfonamides; Z88.8 Allergy status to other drugs, medicaments and biological substances; Z79.899 Other long term (current) drug therapy
CPT/HCPCS: 99284

== ENCOUNTER 2019-10-08 19:31 | Emergency (ER) | payer OTHER ==
[2019-10-08 19:37] VITALS: BP 125/83; PULSE 95; RESP 18; TEMP 99.2
[2019-10-08] MEDS ORDERED: NAPROXEN 250 MG TAB PO STA (20:05)
--- NOTE | 2019-10-08 20:39 | XR ---
EXAMINATION TYPE: XR chest 2V DATE OF EXAM: 10/08/2019 COMPARISON: 07/04/2019 HISTORY: Chest pain TECHNIQUE: FINDINGS: Heart and mediastinum are normal. Lungs are clear. Diaphragm is normal. Bony thorax appears normal. IMPRESSION: Normal chest. No change.
--- NOTE | 2019-10-08 20:50 | ED ---
Chest Pain HPI - General Chief Complaint: Chest Pain Stated Complaint: Chest Discomfort Source: EMS Mode of arrival: EMS Limitations: no limitations - History of Present Illness Initial Comments: The patient is a 24-year-old female with past history of asthma who presents to the emergency room with reported chest pain. The patient states that she thinks her neighbors are making math because they are constantly walking around upstairs in her apartment building. She states her also flushing the toilet. She has smelled an abnormal odor coming from the apartment. Because of that she assumes it is math and states that it is making her "heart hurt. She denies any shortness of breath. States "I know it's not my lungs" no previous history of cardiac disease. Denies palpitations. States that she had a thorough workup through [facility] regarding palpitations that she had and states that everything was normal. Reports that since she has called EMS and came to the hospital her symptoms are completely resolved. She denies concern for . No cough or hemoptysis. No fevers or chills. 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 - Related Data Home Medications Medication Instructions Recorded Confirmed Cetirizine HCl [Zyrtec] 10 mg PO DAILY 05/19/19 10/08/19 ARIPiprazole IM SYRINGE [Abilify 400 mg IM Q28D 09/17/19 10/08/19 Maintena Syringe] Albuterol Sulfate [Albuterol 2 puff PO RT-Q4H PRN 10/08/19 10/08/19 Sulfate Hfa] Allergies Allergy/AdvReac Type Severity Reaction Status Date / Time Penicillins Allergy Severe Anaphylaxis Verified 10/02/19 04:59 Sulfa (Sulfonamide Allergy Severe Anaphylaxis Verified 10/02/19 04:59 Antibiotics) diphenhydramine HCl Allergy Nausea Verified 10/02/19 04:59 [From Benadryl] Review of Systems ROS Statement: Those systems with pertinent positive or pertinent negative responses have been documented in the HPI. ROS Other: All systems not noted in ROS Statement are negative. EKG Findings - EKG Comments: EKG Findings:: EKG demonstrates normal sinus rhythm with a ventricular rate of 88. SC interval 156. QRS 74. QTC of 440. 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 Past Psychological History: Anxiety, Bipolar, Depression, Panic Disorder, PTSD, Schizoaffective Disorder Smoking Status: Current every day smoker Past Alcohol Use History: None Reported Past Drug Use History: Marijuana - Past Family History Mother Family Medical History: No Reported History Father Family Medical History: No Reported History Additional Family Medical History / Comment(s): bipolar, sever seasonal allergies Brother(s) Family Medical History: No Reported History Sister(s) Family Medical History: No Reported History General Exam Limitations: no limitations Course Vital Signs 10/08/19 19:33 Temperature 99.2 F Pulse Rate 95 Respiratory 18 Rate Blood Pressure 125/83 O2 Sat by Pulse 96 Oximetry Chest Pain MDM - MDM Upon arrival the patient was placed into room 20. Thorough history and physical exam was performed. Patient is sent for chest x-ray and a 12-lead EKG is performed. I did discuss the diagnosis, differential treatment options. At this time the patient will be discharged home. She is to follow-up with her primary care doctor to 4 days. Return to the department for any new or worsening symptoms. Her legal guardian was made aware of all this. The patient wasn't discharged in stable condition Disposition Clinical Impression: Chest pain Disposition: HOME SELF-CARE Condition: Stable Instructions (If sedation given, give patient instructions): Chest Pain (ED) Additional Instructions: Please follow up with your primary care doctor in 2-4 days. Return to the emergency room for any new or worsening symptoms Is patient prescribed a controlled substance at d/c from ED?: No Referrals: Lauren Denson MD [Primary Care Provider] - 1-2 days Time of Disposition: 20:50
== END 2019-10-08 21:36 | disposition home or self-care (01) ==
LOC: EC 19:31
DX: R07.9 Chest pain, unspecified (principal); J45.909 Unspecified asthma, uncomplicated; F17.200 Nicotine dependence, unspecified, uncomplicated; Z88.0 Allergy status to penicillin; Z88.2 Allergy status to sulfonamides; Z88.8 Allergy status to other drugs, medicaments and biological substances; Z87.820 Personal history of traumatic brain injury
CPT/HCPCS: 71046; 99285

== ENCOUNTER 2019-10-21 00:43 | Emergency (ER) | payer OTHER ==
[2019-10-21 00:50] VITALS: BP 127/79; PULSE 88; RESP 18; TEMP 98.3
--- NOTE | 2019-10-21 00:53 | ED ---
GI Bleed HPI - General Stated complaint: nausea, vomiting Time Seen by Provider: 10/21/19 00:44 - Related Data Home Medications Medication Instructions Recorded Confirmed Cetirizine HCl [Zyrtec] 10 mg PO DAILY 05/19/19 10/08/19 ARIPiprazole IM SYRINGE [Abilify 400 mg IM Q28D 09/17/19 10/08/19 Maintena Syringe] Albuterol Sulfate [Albuterol 2 puff PO RT-Q4H PRN 10/08/19 10/08/19 Sulfate Hfa] Allergies Allergy/AdvReac Type Severity Reaction Status Date / Time Penicillins Allergy Severe Anaphylaxis Verified 10/02/19 04:59 Sulfa (Sulfonamide Allergy Severe Anaphylaxis Verified 10/02/19 04:59 Antibiotics) diphenhydramine HCl Allergy Nausea Verified 10/02/19 04:59 [From Benadryl] Review of Systems ROS Statement: Those systems with pertinent positive or pertinent negative responses have been documented in the HPI. ROS Other: All systems not noted in ROS Statement are negative. 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 Past Psychological History: Anxiety, Bipolar, Depression, Panic Disorder, PTSD, Schizoaffective Disorder Smoking Status: Current every day smoker Past Alcohol Use History: None Reported Past Drug Use History: Marijuana - Past Family History Mother Family Medical History: No Reported History Father Family Medical History: No Reported History Additional Family Medical History / Comment(s): bipolar, sever seasonal allergies Brother(s) Family Medical History: No Reported History Sister(s) Family Medical History: No Reported History Disposition Referrals: Lauren Denson MD [Primary Care Provider] - 1-2 days
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
[2019-10-21 01:04] LABS: Appearance,Urine Clear (Clear); Bilirubin,Urine Negative (Negative); Blood,Urine Negative (Negative); Color,Urine Light Yellow; Glucose,Urine (UA) Negative (Negative); Ketones,Urine Negative (Negative); Leukocyte Esterase,Urine Negative (Negative); Nitrite,Urine Negative (Negative); Protein,Urine Negative (Negative); Specific Gravity,Urine 1.007 (1.001-1.035); Urobilinogen,Urine <2.0 mg/dL (<2.0)
[2019-10-22 14:03] LABS: C. trachomatis,PCR Negative (Neg,Equiv); Chlamydia trachomatis Source Vagina; N. gonorrhoeae,PCR Negative (Neg,Equiv); Neisseria Source Vagina
== END 2019-10-21 01:44 | disposition home or self-care (01) ==
LOC: EC 00:43
DX: Z20.2 Contact with and (suspected) exposure to infections with a predominantly sexual mode of transmission (principal); R12 Heartburn; J45.909 Unspecified asthma, uncomplicated; F31.9 Bipolar disorder, unspecified; F25.9 Schizoaffective disorder, unspecified; F17.200 Nicotine dependence, unspecified, uncomplicated; Z88.0 Allergy status to penicillin; Z88.2 Allergy status to sulfonamides; Z88.8 Allergy status to other drugs, medicaments and biological substances; Z79.899 Other long term (current) drug therapy
CPT/HCPCS: 81003; 81025; 87070; 87491; 87591; 87808; 99284

== ENCOUNTER 2019-11-04 10:59 | Emergency (ER) | payer OTHER ==
[2019-11-04] MEDS ORDERED: AZITHROMYCIN 500 MG TAB PO STA (11:40)
[2019-11-04] MEDS ORDERED: metroNIDAZOLE 500 MG TAB PO STA (11:40)
[2019-11-04] MEDS ORDERED: cefTRIAXone 1,000 MG VIAL (IM USE) IM STA (11:40)
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
[2019-11-04 12:28] VITALS: BP 131/75; PULSE 87; RESP 18; TEMP 98.8
[2019-11-04 12:29] LABS: Appearance,Urine Clear (Clear); Bacteria,Urine Rare /hpf; Bilirubin,Urine Negative (Negative); Blood,Urine Negative (Negative); Color,Urine Yellow; Glucose,Urine (UA) Negative (Negative); Ketones,Urine Negative (Negative); Leukocyte Esterase,Urine Trace (Negative); Mucus,Urine Rare /hpf; Nitrite,Urine Negative (Negative); Protein,Urine Negative (Negative); Specific Gravity,Urine 1.023 (1.001-1.035); Squamous Epithelial Cell,Urine 4 /hpf (0-4); Urobilinogen,Urine <2.0 mg/dL (<2.0); WBC,Urine 1 /hpf (0-5)
== END 2019-11-04 12:28 | disposition home or self-care (01) ==
LOC: EC 10:59
DX: N89.8 Other specified noninflammatory disorders of vagina (principal); J45.909 Unspecified asthma, uncomplicated; F25.1 Schizoaffective disorder, depressive type; F25.0 Schizoaffective disorder, bipolar type; F17.200 Nicotine dependence, unspecified, uncomplicated; Z79.899 Other long term (current) drug therapy; Z88.2 Allergy status to sulfonamides; Z88.8 Allergy status to other drugs, medicaments and biological substances
CPT/HCPCS: 81001; 81025; 87808; 87491; 87591; 87070; 99284; 96372; J0696

== ENCOUNTER 2019-11-08 21:30 | Emergency (ER) | payer OTHER ==
[2019-11-08 21:39] VITALS: BP 108/64; PULSE 95; RESP 18; TEMP 98.6
[2019-11-08] MEDS ORDERED: AZITHROMYCIN 250 MG TAB PO STA (22:17)
[2019-11-08] MEDS ORDERED: cefTRIAXone 250 MG VIAL IM STA (22:17)
[2019-11-08] MEDS ORDERED: metroNIDAZOLE 500 MG TAB PO STA (22:17)
[2019-11-08 22:43] LABS: Appearance,Urine Clear (Clear); Bilirubin,Urine Negative (Negative); Blood,Urine Negative (Negative); Color,Urine Yellow; Glucose,Urine (UA) Negative (Negative); Ketones,Urine Negative (Negative); Leukocyte Esterase,Urine Negative (Negative); Nitrite,Urine Negative (Negative); PH, Urine 6.5 (5.0-8.0); Protein,Urine Negative (Negative); Urobilinogen,Urine <2.0 mg/dL (<2.0)
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
== END 2019-11-08 23:03 | disposition home or self-care (01) ==
LOC: EC 21:30
DX: T76.21XA Adult sexual abuse, suspected, initial encounter (principal); Z71.1 Person with feared health complaint in whom no diagnosis is made; J45.909 Unspecified asthma, uncomplicated; F17.200 Nicotine dependence, unspecified, uncomplicated; Z88.0 Allergy status to penicillin; Z88.2 Allergy status to sulfonamides; Z88.8 Allergy status to other drugs, medicaments and biological substances
CPT/HCPCS: 81003; 81025; 99284; 96372; J0696

== ENCOUNTER 2019-11-21 20:42 | Emergency (ER) | payer OTHER ==
[2019-11-21 20:51] VITALS: TEMP 98.3
--- NOTE | 2019-11-21 21:09 | ED ---
General Adult HPI - General Chief complaint: Nausea/Vomiting/Diarrhea Stated complaint: Abdominal Pain Time Seen by Provider: 11/21/19 20:43 Source: patient Mode of arrival: ambulatory Limitations: no limitations - History of Present Illness Initial comments: Patient is a 24-year-old female, frequent visitor to the ER, presenting to emergency Department via EMS with complaints of dizziness as well as mild stomach pain. Patient states she was diagnosed with Trichomonas 3 days ago and started Flagyl today. Patient states her symptoms started shortly after starting the medication. She denies fever, chills, chest pain, cough. She denies any headache, vision changes. She denies chest pain, shortness of breath, cough. She has no other complaints at this time. On arrival to the ER her vitals are stable. - Related Data Home Medications Medication Instructions Recorded Confirmed Cetirizine HCl [Zyrtec] 10 mg PO DAILY 05/19/19 10/08/19 ARIPiprazole IM SYRINGE [Abilify 400 mg IM Q28D 09/17/19 10/08/19 Maintena Syringe] Albuterol Sulfate [Albuterol 2 puff PO RT-Q4H PRN 10/08/19 10/08/19 Sulfate Hfa] Allergies Allergy/AdvReac Type Severity Reaction Status Date / Time Penicillins Allergy Severe Anaphylaxis Verified 11/21/19 20:50 Sulfa (Sulfonamide Allergy Severe Anaphylaxis Verified 11/21/19 20:50 Antibiotics) diphenhydramine HCl Allergy Nausea Verified 11/21/19 20:50 [From Benadryl] Review of Systems ROS Statement: Those systems with pertinent positive or pertinent negative responses have been documented in the HPI. ROS Other: All systems not noted in ROS Statement are negative. 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 Past Psychological History: Anxiety, Bipolar, Depression, Panic Disorder, PTSD, Schizoaffective Disorder Smoking Status: Current every day smoker Past Alcohol Use History: None Reported Past Drug Use History: Marijuana - Past Family History Mother Family Medical History: No Reported History Father Family Medical History: No Reported History Additional Family Medical History / Comment(s): bipolar, sever seasonal allergies Brother(s) Family Medical History: No Reported History Sister(s) Family Medical History: No Reported History General Exam - General Exam Comments Initial Comments: GENERAL: Well-appearing, well-nourished and in no acute distress. HEAD: Atraumatic, normocephalic. EYES: Pupils equal round and reactive to light, extraocular movements intact, sclera anicteric, conjunctiva are normal. ENT: TMs normal, nares patent, oropharynx clear without exudates. Moist mucous membranes. NECK: Normal range of motion, supple without lymphadenopathy or JVD. LUNGS: Breath sounds clear to auscultation bilaterally and equal. No wheezes rales or rhonchi. HEART: Regular rate and rhythm without murmurs, rubs or gallops. ABDOMEN: Soft, nontender, normoactive bowel sounds. No guarding, no rebound. No masses appreciated. : Deferred EXTREMITIES: Normal range of motion, no pitting or edema. No clubbing or cyanosis. NEUROLOGICAL: Cranial nerves II through XII grossly intact. Normal speech, normal gait. PSYCH: Normal mood, normal affect. SKIN: Warm, Dry, normal turgor, no rashes or lesions noted. Limitations: no limitations Course Vital Signs 11/21/19 11/21/19 20:44 21:59 Temperature 98.3 F 98.3 F Pulse Rate 87 86 Respiratory 15 16 Rate Blood Pressure 111/67 110/70 O2 Sat by Pulse 98 97 Oximetry Medical Decision Making - Medical Decision Making Patient is a 24-year-old female presenting with complaints of nausea as well as lightheadedness x 2 hours. Currently being treated for Trichomonas with Flagyl. She took the first dose today. Vitals are stable. Laboratories unremarkable. Patient's exam is unremarkable, no abdominal pain. Patient is comfortable. I discussed the patient's symptoms are most likely related to the medication. She needs to eat with the medication. She is stable for discharge. Patient is with this plan of care. Return parameters were discussed with the patient she verbalized understanding. Case discussed with Dr. Angeles. - Lab Data Result diagrams: 11/21/19 21:10 11/21/19 21:10 Lab Results 11/21/19 11/21/19 11/21/19 Range/Units 21:10 21:10 21:10 WBC 10.3 (3.8-10.6) k/uL RBC 4.51 (3.80-5.40) m/uL Hgb 12.9 (11.4-16.0) gm/dL Hct 39.1 (34.0-46.0) % MCV 86.7 (80.0-100.0) fL MCH 28.6 (25.0-35.0) pg MCHC 33.0 (31.0-37.0) g/dL RDW 13.6 (11.5-15.5) % Plt Count 198 (150-450) k/uL Neutrophils % 68 % Lymphocytes % 25 % Monocytes % 4 % Eosinophils % 1 % Basophils % 0 % Neutrophils # 7.0 (1.3-7.7) k/uL Lymphocytes # 2.6 (1.0-4.8) k/uL Monocytes # 0.4 (0-1.0) k/uL Eosinophils # 0.1 (0-0.7) k/uL Basophils # 0.0 (0-0.2) k/uL Sodium (137-145) mmol/L Potassium (3.5-5.1) mmol/L Chloride (98-107) mmol/L Carbon Dioxide (22-30) mmol/L Anion Gap mmol/L BUN (7-17) mg/dL Creatinine (0.52-1.04) mg/dL Est GFR (CKD-EPI)AfAm (>60 ml/min/1.73 sqM) Est GFR (CKD-EPI)NonAf (>60 ml/min/1.73 sqM) Glucose (74-99) mg/dL Calcium (8.4-10.2) mg/dL Urine Color Yellow Urine Appearance Clear (Clear) Urine pH 6.0 (5.0-8.0) Ur Specific [place] 1.018 (1.001-1.035) Urine Protein Negative (Negative) Urine Glucose (UA) Negative (Negative) Urine Ketones 1+ H (Negative) Urine Blood Large H (Negative) Urine Nitrite Negative (Negative) Urine Bilirubin Negative (Negative) Urine Urobilinogen <2.0 (<2.0) mg/dL Ur Leukocyte Esterase Small H (Negative) Urine RBC 1 (0-5) /hpf Urine WBC 1 (0-5) /hpf Ur Squamous Epith Cells 2 (0-4) /hpf Urine Bacteria Rare H (None) /hpf Urine Mucus Rare H (None) /hpf Urine Yeast (Budding) Occasional H (None) /hpf Urine HCG, Qual Not Detected (Not Detectd) 11/21/19 Range/Units 21:10 WBC (3.8-10.6) k/uL RBC (3.80-5.40) m/uL Hgb (11.4-16.0) gm/dL Hct (34.0-46.0) % MCV (80.0-100.0) fL MCH (25.0-35.0) pg MCHC (31.0-37.0) g/dL RDW (11.5-15.5) % Plt Count (150-450) k/uL Neutrophils % % Lymphocytes % % Monocytes % % Eosinophils % % Basophils % % Neutrophils # (1.3-7.7) k/uL Lymphocytes # (1.0-4.8) k/uL Monocytes # (0-1.0) k/uL Eosinophils # (0-0.7) k/uL Basophils # (0-0.2) k/uL Sodium 137 (137-145) mmol/L Potassium 4.3 (3.5-5.1) mmol/L Chloride 106 (98-107) mmol/L Carbon Dioxide 24 (22-30) mmol/L Anion Gap 7 mmol/L BUN 10 (7-17) mg/dL Creatinine 0.78 (0.52-1.04) mg/dL Est GFR (CKD-EPI)AfAm >90 (>60 ml/min/1.73 sqM) Est GFR (CKD-EPI)NonAf >90 (>60 ml/min/1.73 sqM) Glucose 83 (74-99) mg/dL Calcium 9.5 (8.4-10.2) mg/dL Urine Color Urine Appearance (Clear) Urine pH (5.0-8.0) Ur Specific [place] (1.001-1.035) Urine Protein (Negative) Urine Glucose (UA) (Negative) Urine Ketones (Negative) Urine Blood (Negative) Urine Nitrite (Negative) Urine Bilirubin (Negative) Urine Urobilinogen (<2.0) mg/dL Ur Leukocyte Esterase (Negative) Urine RBC (0-5) /hpf Urine WBC (0-5) /hpf Ur Squamous Epith Cells (0-4) /hpf Urine Bacteria (None) /hpf Urine Mucus (None) /hpf Urine Yeast (Budding) (None) /hpf Urine HCG, Qual (Not Detectd) Disposition Clinical Impression: Nausea, Light-headed feeling Disposition: HOME SELF-CARE Condition: Stable Instructions (If sedation given, give patient instructions): Acute Nausea and Vomiting (ED) Additional Instructions: Please return to the Emergency Department if symptoms worsen or any other concerns. Increase fluid intake and make sure to eat food with the medication. Follow-up with PCP. Is patient prescribed a controlled substance at d/c from ED?: No Referrals: aLuren Denson MD [Primary Care Provider] - 1-2 days
[2019-11-21 21:23] LABS: Basophils % (A) 0 %; Eosinophils # (A) 0.1 k/uL (0-0.7); Eosinophils % (A) 1 %; HCT 39.1 % (34.0-46.0); HGB 12.9 gm/dL (11.4-16.0); Lymphocytes # (A) 2.6 k/uL (1.0-4.8); Lymphocytes % (A) 25 %; MCH 28.6 pg (25.0-35.0); MCV 86.7 fL (80.0-100.0); Monocytes # (A) 0.4 k/uL (0-1.0); Monocytes % (A) 4 %; Neutrophils % (A) 68 %; Platelet Count 198 k/uL (150-450); RBC 4.51 m/uL (3.80-5.40); RDW 13.6 % (11.5-15.5); WBC 10.3 k/uL (3.8-10.6)
[2019-11-21 21:25] LABS: Appearance,Urine Clear (Clear); Bacteria,Urine Rare /hpf; Bilirubin,Urine Negative (Negative); Blood,Urine Large (Negative); Budding Yeast,Urine Occasional /hpf; Color,Urine Yellow; Glucose,Urine (UA) Negative (Negative); Ketones,Urine 1+ (Negative); Leukocyte Esterase,Urine Small (Negative); Mucus,Urine Rare /hpf; Nitrite,Urine Negative (Negative); Protein,Urine Negative (Negative); RBC,Urine 1 /hpf (0-5); Specific Gravity,Urine 1.018 (1.001-1.035); Squamous Epithelial Cell,Urine 2 /hpf (0-4); Urobilinogen,Urine <2.0 mg/dL (<2.0); WBC,Urine 1 /hpf (0-5)
[2019-11-21 21:34] LABS: African American GFR (CKD) >90 (>60 ml/min/1.73 sqM); Anion Gap 7 mmol/L; Blood Urea Nitrogen 10 mg/dL (7-17); Calcium 9.5 mg/dL (8.4-10.2); Carbon Dioxide 24 mmol/L (22-30); Chloride 106 mmol/L (98-107); Glucose 83 mg/dL (74-99); Non-African American GFR(CKD) >90 (>60 ml/min/1.73 sqM); Potassium 4.3 mmol/L (3.5-5.1); Sodium 137 mmol/L (137-145)
[2019-11-21 22:00] VITALS: BP 110/70; PULSE 86; RESP 16
== END 2019-11-21 21:59 | disposition home or self-care (01) ==
LOC: EC 20:42
DX: R11.0 Nausea (principal); R42 Dizziness and giddiness; A59.9 Trichomoniasis, unspecified; F17.200 Nicotine dependence, unspecified, uncomplicated; J45.909 Unspecified asthma, uncomplicated; F41.9 Anxiety disorder, unspecified; F25.9 Schizoaffective disorder, unspecified; Z79.51 Long term (current) use of inhaled steroids; Z79.899 Other long term (current) drug therapy; Z88.0 Allergy status to penicillin; Z88.2 Allergy status to sulfonamides; Z88.8 Allergy status to other drugs, medicaments and biological substances; Z87.442 Personal history of urinary calculi
CPT/HCPCS: 36415; 80048; 81001; 81025; 85025; 99284

== ENCOUNTER 2019-11-29 16:46 | Emergency (ER) | payer OTHER ==
[2019-11-29 16:54] VITALS: TEMP 98
[2019-11-29] MEDS ORDERED: ONDANSETRON 4 MG/2 ML VIAL IVP STA (16:59)
[2019-11-29] MEDS ORDERED: SODIUM CHLORIDE 0.9% 1,000 ML IV ONE (16:59)
[2019-11-29 17:25] LABS: Appearance,Urine Clear (Clear); Bilirubin,Urine Negative (Negative); Blood,Urine Negative (Negative); Color,Urine Colorless; Glucose,Urine (UA) Negative (Negative); Ketones,Urine Negative (Negative); Leukocyte Esterase,Urine Negative (Negative); Nitrite,Urine Negative (Negative); PH, Urine 5.5 (5.0-8.0); Protein,Urine Negative (Negative); Specific Gravity,Urine 1.001 (1.001-1.035); Urobilinogen,Urine <2.0 mg/dL (<2.0)
[2019-11-29 17:37] LABS: Basophils % (A) 0 %; Eosinophils # (A) 0.1 k/uL (0-0.7); Eosinophils % (A) 1 %; HCT 40.5 % (34.0-46.0); Lymphocytes # (A) 2.1 k/uL (1.0-4.8); Lymphocytes % (A) 19 %; MCH 27.8 pg (25.0-35.0); MCHC 32.2 g/dL (31.0-37.0); MCV 86.5 fL (80.0-100.0); Mean Platelet Volume 8.8; Monocytes # (A) 0.3 k/uL (0-1.0); Monocytes % (A) 3 %; Neutrophils # (A) 8.5 k/uL (1.3-7.7); Neutrophils % (A) 76 %; Platelet Count 223 k/uL (150-450); RBC 4.68 m/uL (3.80-5.40); RDW 13.6 % (11.5-15.5); WBC 11.2 k/uL (3.8-10.6)
--- NOTE | 2019-11-29 17:37 | ED ---
Abdominal Pain HPI - General Chief Complaint: Abdominal Pain Stated Complaint: Abd pain Time Seen by Provider: 11/29/19 16:52 Source: patient, EMS, RN notes reviewed, old records reviewed Mode of arrival: EMS Limitations: no limitations - History of Present Illness Initial Comments: 24-year-old female presenting for evaluation of nausea and concern that she may be . She states she has taken test daily for the past one week and has had negative results each time. She's had nausea over the past several weeks and has had some lower abdominal discomfort. She denies dysuria or hematuria. She denies vaginal discharge or vaginal bleeding. She states her last normal menstrual cycle was about 6 months ago she does not menstruate no rmally. She is concerned that she could be . She denies significant abdominal pain. Denies fever or chills. Denies cough or dyspnea. - Related Data Home Medications Medication Instructions Recorded Confirmed Cetirizine HCl [Zyrtec] 10 mg PO DAILY PRN 05/19/19 11/29/19 ARIPiprazole IM SYRINGE [Abilify 400 mg IM Q28D 09/17/19 11/29/19 Maintena Syringe] Albuterol Sulfate [Albuterol 2 puff INHALATION RT-Q6H PRN 10/08/19 11/29/19 Sulfate Hfa] Calcium Carbonate/Vitamin D3 1 tab PO DAILY 11/29/19 11/29/19 [Calcium 600-Vit D3 800 Caplet] Calcium Polycarbophil [Fiber-Lax] 625 mg PO DAILY 11/29/19 11/29/19 Cyclobenzaprine [Flexeril] 5 mg PO TID PRN 11/29/19 11/29/19 Fish Oil(Unknown Dose) 1 cap PO DAILY 11/29/19 11/29/19 Fluticasone/Salmeterol 1 puff INHALATION RT-BID 11/29/19 11/29/19 [Fluticasone-Salmeterol 113-14] Melatonin 5 mg PO HS 11/29/19 11/29/19 Multivitamins, Thera [Multivitamin 1 tab PO DAILY 11/29/19 11/29/19 (formulary)] Triamcinolone Acetonide [Nasacort] 2 spray EA NOSTRIL DAILY 11/29/19 11/29/19 medroxyPROGESTERone [Depo-Provera] 150 mg IM Q84D 11/29/19 11/29/19 Allergies Allergy/AdvReac Type Severity Reaction Status Date / Time Penicillins Allergy Severe Anaphylaxis Verified 11/29/19 17:14 Sulfa (Sulfonamide Allergy Severe Anaphylaxis Verified 11/29/19 17:14 Antibiotics) diphenhydramine HCl Allergy Nausea Verified 11/29/19 17:14 [From Benadryl] Review of Systems ROS Statement: Those systems with pertinent positive or pertinent negative responses have been documented in the HPI. ROS Other: All systems not noted in ROS Statement are negative. 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 Past Psychological History: Anxiety, Bipolar, Depression, Panic Disorder, PTSD, Schizoaffective Disorder Smoking Status: Current every day smoker Past Alcohol Use History: None Reported Past Drug Use History: Marijuana - Past Family History Mother Family Medical History: No Reported History Father Family Medical History: No Reported History Additional Family Medical History / Comment(s): bipolar, sever seasonal allergies Brother(s) Family Medical History: No Reported History Sister(s) Family Medical History: No Reported History General Exam Limitations: no limitations General appearance: alert, in no apparent distress Head exam: Present: atraumatic, normocephalic Eye exam: Present: normal appearance, PERRL ENT exam: Present: normal exam Neck exam: Present: normal inspection. Absent: tenderness, meningismus Respiratory exam: Present: normal lung sounds bilaterally. Absent: respiratory distress, wheezes, rales Cardiovascular Exam: Present: regular rate, normal rhythm GI/Abdominal exam: Present: soft. Absent: distended, tenderness, guarding, rebound, rigid Neurological exam: Present: alert, oriented X3. Absent: motor sensory deficit Skin exam: Present: warm, dry, intact. Absent: cyanosis, diaphoretic Course Vital Signs 11/29/19 16:49 Temperature 98 F Pulse Rate 105 H Respiratory 16 Rate Blood Pressure 131/61 O2 Sat by Pulse 99 Oximetry Medical Decision Making - Medical Decision Making 24-year-old female presenting with nausea and concern that she is . She reports suprapubic pain. She has no tenderness on exam. Non-distended nontender abdomen. She is well-appearing otherwise. Workup reveals mild leukocytosis at 11, stable hemoglobin, normal electrolytes and kidney function. She has a negative urinalysis is neg. urine preg neg. Nausea with no vomiting. She is given return parameters and will follow-up with the primary care physician. She will return with worsening or changing symptoms. - Lab Data Result diagrams: 11/29/19 17:18 11/29/19 17:18 Lab Results 11/29/19 11/29/19 11/29/19 Range/Units 17:18 17:18 Unknown WBC 11.2 H (3.8-10.6) k/uL RBC 4.68 (3.80-5.40) m/uL Hgb 13.0 (11.4-16.0) gm/dL Hct 40.5 (34.0-46.0) % MCV 86.5 (80.0-100.0) fL MCH 27.8 (25.0-35.0) pg MCHC 32.2 (31.0-37.0) g/dL RDW 13.6 (11.5-15.5) % Plt Count 223 (150-450) k/uL Neutrophils % 76 % Lymphocytes % 19 % Monocytes % 3 % Eosinophils % 1 % Basophils % 0 % Neutrophils # 8.5 H (1.3-7.7) k/uL Lymphocytes # 2.1 (1.0-4.8) k/uL Monocytes # 0.3 (0-1.0) k/uL Eosinophils # 0.1 (0-0.7) k/uL Basophils # 0.0 (0-0.2) k/uL Sodium 138 (137-145) mmol/L Potassium 3.9 (3.5-5.1) mmol/L Chloride 107 (98-107) mmol/L Carbon Dioxide 22 (22-30) mmol/L Anion Gap 9 mmol/L BUN 7 (7-17) mg/dL Creatinine 0.74 (0.52-1.04) mg/dL Est GFR (CKD-EPI)AfAm >90 (>60 ml/min/1.73 sqM) Est GFR (CKD-EPI)NonAf >90 (>60 ml/min/1.73 sqM) Glucose 122 H (74-99) mg/dL Calcium 9.7 (8.4-10.2) mg/dL Total Bilirubin 0.3 (0.2-1.3) mg/dL AST 31 (14-36) U/L ALT 38 H (4-34) U/L Alkaline Phosphatase 71 (38-126) U/L Total Protein 7.0 (6.3-8.2) g/dL Albumin 4.1 (3.5-5.0) g/dL Lipase 44 (23-300) U/L Urine Color Colorless Urine Appearance Clear (Clear) Urine pH 5.5 (5.0-8.0) Ur Specific [place] 1.001 (1.001-1.035) Urine Protein Negative (Negative) Urine Glucose (UA) Negative (Negative) Urine Ketones Negative (Negative) Urine Blood Negative (Negative) Urine Nitrite Negative (Negative) Urine Bilirubin Negative (Negative) Urine Urobilinogen <2.0 (<2.0) mg/dL Ur Leukocyte Esterase Negative (Negative) Urine HCG, Qual (Not Detectd) 11/29/19 Range/Units Unknown WBC (3.8-10.6) k/uL RBC (3.80-5.40) m/uL Hgb (11.4-16.0) gm/dL Hct (34.0-46.0) % MCV (80.0-100.0) fL MCH (25.0-35.0) pg MCHC (31.0-37.0) g/dL RDW (11.5-15.5) % Plt Count (150-450) k/uL Neutrophils % % Lymphocytes % % Monocytes % % Eosinophils % % Basophils % % Neutrophils # (1.3-7.7) k/uL Lymphocytes # (1.0-4.8) k/uL Monocytes # (0-1.0) k/uL Eosinophils # (0-0.7) k/uL Basophils # (0-0.2) k/uL Sodium (137-145) mmol/L Potassium (3.5-5.1) mmol/L Chloride (98-107) mmol/L Carbon Dioxide (22-30) mmol/L Anion Gap mmol/L BUN (7-17) mg/dL Creatinine (0.52-1.04) mg/dL Est GFR (CKD-EPI)AfAm (>60 ml/min/1.73 sqM) Est GFR (CKD-EPI)NonAf (>60 ml/min/1.73 sqM) Glucose (74-99) mg/dL Calcium (8.4-10.2) mg/dL Total Bilirubin (0.2-1.3) mg/dL AST (14-36) U/L ALT (4-34) U/L Alkaline Phosphatase (38-126) U/L Total Protein (6.3-8.2) g/dL Albumin (3.5-5.0) g/dL Lipase (23-300) U/L Urine Color Urine Appearance (Clear) Urine pH (5.0-8.0) Ur Specific [place] (1.001-1.035) Urine Protein (Negative) Urine Glucose (UA) (Negative) Urine Ketones (Negative) Urine Blood (Negative) Urine Nitrite (Negative) Urine Bilirubin (Negative) Urine Urobilinogen (<2.0) mg/dL Ur Leukocyte Esterase (Negative) Urine HCG, Qual Not Detected (Not Detectd) Disposition Clinical Impression: Nausea Disposition: HOME SELF-CARE Condition: Good Instructions (If sedation given, give patient instructions): Acute Nausea and Vomiting (ED) Is patient prescribed a controlled substance at d/c from ED?: No Referrals: Lauren Denson MD [Primary Care Provider] - 1-2 days Time of Disposition: 17:53
[2019-11-29 17:42] LABS: ALT 38 U/L (4-34); AST 31 U/L (14-36); African American GFR (CKD) >90 (>60 ml/min/1.73 sqM); Albumin 4.1 g/dL (3.5-5.0); Alkaline Phosphatase 71 U/L (38-126); Anion Gap 9 mmol/L; Blood Urea Nitrogen 7 mg/dL (7-17); Calcium 9.7 mg/dL (8.4-10.2); Carbon Dioxide 22 mmol/L (22-30); Chloride 107 mmol/L (98-107); Glucose 122 mg/dL (74-99); Non-African American GFR(CKD) >90 (>60 ml/min/1.73 sqM); Potassium 3.9 mmol/L (3.5-5.1); Sodium 138 mmol/L (137-145); Total Bilirubin 0.3 mg/dL (0.2-1.3)
[2019-11-29 18:17] VITALS: BP 121/80; PULSE 90; RESP 18
== END 2019-11-29 18:00 | disposition home or self-care (01) ==
LOC: EC 16:46
DX: R11.0 Nausea (principal); R10.2 Pelvic and perineal pain; D72.829 Elevated white blood cell count, unspecified; F41.9 Anxiety disorder, unspecified; F31.9 Bipolar disorder, unspecified; F17.200 Nicotine dependence, unspecified, uncomplicated; Z79.899 Other long term (current) drug therapy; Z79.3 Long term (current) use of hormonal contraceptives; Z88.0 Allergy status to penicillin; Z88.2 Allergy status to sulfonamides; Z88.8 Allergy status to other drugs, medicaments and biological substances; Z98.890 Other specified postprocedural states
CPT/HCPCS: 36415; 80053; 83690; 85025; 81003; 81025; 96374; 96361; 99284; J2405

== ENCOUNTER 2019-12-08 20:18 | Emergency (ER) | payer OTHER ==
[2019-12-08 20:25] VITALS: PULSE 89; RESP 18
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
[2019-12-08 21:44] LABS: Appearance,Urine Turbid (Clear); Bacteria,Urine Few /hpf; Bilirubin,Urine Negative (Negative); Blood,Urine Small (Negative); Color,Urine Light Yellow; Glucose,Urine (UA) Negative (Negative); Ketones,Urine Negative (Negative); Leukocyte Esterase,Urine Negative (Negative); Mucus,Urine Rare /hpf; Nitrite,Urine Negative (Negative); PH, Urine 5.5 (5.0-8.0); Protein,Urine Negative (Negative); RBC,Urine 1 /hpf (0-5); Specific Gravity,Urine 1.009 (1.001-1.035); Squamous Epithelial Cell,Urine 1 /hpf (0-4); Urobilinogen,Urine <2.0 mg/dL (<2.0); WBC,Urine 1 /hpf (0-5)
[2019-12-08 21:52] LABS: Amphetamine Screen,Urine Not Detected (NotDetected); Barbiturate Screen,Urine Not Detected (NotDetected); Benzodiazepines Screen,Urine Not Detected (NotDetected); Cocaine Screen,Urine Not Detected (NotDetected); Methadone Screen, Urine Not Detected (NotDetected); Opiate Screen,Urine Not Detected (NotDetected); Oxycodone Screen, Urine Not Detected (NotDetected); Phencyclidine Screen,Urine Not Detected (NotDetected); Tricyclic Antidepressant,Urine Not Detected (NotDetected); Urn Cannabinoid Scrn Not Detected (NotDetected)
[2019-12-08] MEDS ORDERED: KETOROLAC 30 MG/ML 1 ML VIAL IM STA (22:51)
[2019-12-08 23:01] VITALS: BP 130/87
--- NOTE | 2019-12-08 23:35 | XR ---
EXAMINATION TYPE: XR KUB DATE OF EXAM: 12/08/2019 COMPARISON: NONE HISTORY: Abdominal pain TECHNIQUE: 2 views FINDINGS: 2 views upright show no sign of intestinal obstruction or pneumoperitoneum. Fecal pattern i s normal. Lung bases are clear. There are no pathologic calcifications over the kidneys. IMPRESSION: Nonacute abdomen.
[2019-12-08] MEDS ORDERED: AZITHROMYCIN 250 MG TAB PO STA (23:39)
[2019-12-10 14:36] LABS: C. trachomatis,PCR Negative (Neg,Equiv); Chlamydia trachomatis Source Cervix; N. gonorrhoeae,PCR Negative (Neg,Equiv); Neisseria Source Cervix
== END 2019-12-08 23:52 | disposition home or self-care (01) ==
LOC: EC 20:18
DX: R10.30 Lower abdominal pain, unspecified (principal); F25.9 Schizoaffective disorder, unspecified; R31.9 Hematuria, unspecified; J45.909 Unspecified asthma, uncomplicated; F41.9 Anxiety disorder, unspecified; F31.9 Bipolar disorder, unspecified; F17.200 Nicotine dependence, unspecified, uncomplicated; Z79.3 Long term (current) use of hormonal contraceptives; Z79.51 Long term (current) use of inhaled steroids; Z79.899 Other long term (current) drug therapy; Z88.0 Allergy status to penicillin; Z88.2 Allergy status to sulfonamides; Z88.8 Allergy status to other drugs, medicaments and biological substances; Z87.442 Personal history of urinary calculi
CPT/HCPCS: 81001; 81025; 87491; 87591; 80306; 74018; 96372; 99284; J1885

== ENCOUNTER → 2019-12-27 | Outpatient (CLI) | payer OTHER ==
--- NOTE | 2019-12-27 13:42 | XR ---
EXAMINATION TYPE: XR scoliosis survey DATE OF EXAM: 12/27/2019 COMPARISON: NONE HISTORY: Back pain TECHNIQUE: 4 views submitted FINDINGS: There is a subtle curvature of the spine measuring approximately 10 degrees of the thoracol umbar spine. Pedicles are intact. Vertebral body height is maintained. No compression deformities. Disc interspace s are maintained. No compression deformities. IMPRESSION: 1. There is a scoliotic curvature of the thoracolumbar spine measuring approximately 10 degrees
== END | disposition home or self-care (01) ==
LOC: RADXRMAIN 12:13
PROVIDERS: ATTEND Family Medicine
DX: M41.84 Other forms of scoliosis, thoracic region (principal)
CPT/HCPCS: 72082

== ENCOUNTER 2020-02-06 19:58 | Emergency (ER) | payer OTHER ==
[2020-02-06 20:05] VITALS: BP 104/69; PULSE 91; RESP 20; TEMP 98.7
--- NOTE | 2020-02-06 20:15 | ED ---
ENT HPI - General Chief complaint: ENT Stated complaint: Sore throat Time Seen by Provider: 02/06/20 20:09 Source: patient Mode of arrival: ambulatory Limitations: no limitations - History of Present Illness Initial comments: Patient is a 24-year-old female presenting to the emergency department with chief complaint of a sore throat. Patient reports a history of strep pharyngitis. States she's had 3 episodes of this since the beginning of the year. Patient states she is ALLERGIC to amoxicillin typically azithromycin worse before. She denies any cough but does report a fever yesterday although she does not know the exact temperature. She does report a sore throat but denies any drooling or changes to voice. - Related Data Home Medications Medication Instructions Recorded Confirmed Cetirizine HCl [Zyrtec] 10 mg PO DAILY PRN 05/19/19 11/29/19 ARIPiprazole IM SYRINGE [Abilify 400 mg IM Q28D 09/17/19 11/29/19 Maintena Syringe] Albuterol Sulfate [Albuterol 2 puff INHALATION RT-Q6H PRN 10/08/19 11/29/19 Sulfate Hfa] Calcium Carbonate/Vitamin D3 1 tab PO DAILY 11/29/19 11/29/19 [Calcium 600-Vit D3 800 Caplet] Calcium Polycarbophil [Fiber-Lax] 625 mg PO DAILY 11/29/19 11/29/19 Cyclobenzaprine [Flexeril] 5 mg PO TID PRN 11/29/19 11/29/19 Fish Oil(Unknown Dose) 1 cap PO DAILY 11/29/19 11/29/19 Fluticasone/Salmeterol 1 puff INHALATION RT-BID 11/29/19 11/29/19 [Fluticasone-Salmeterol 113-14] Melatonin 5 mg PO HS 11/29/19 11/29/19 Multivitamins, Thera [Multivitamin 1 tab PO DAILY 11/29/19 11/29/19 (formulary)] Triamcinolone Acetonide [Nasacort] 2 spray EA NOSTRIL DAILY 11/29/19 11/29/19 medroxyPROGESTERone [Depo-Provera] 150 mg IM Q84D 11/29/19 11/29/19 Previous Rx's Medication Instructions Recorded Azithromycin [Zithromax] 500 mg PO DAILY 4 Days #4 tab 02/06/20 Allergies Allergy/AdvReac Type Severity Reaction Status Date / Time Penicillins Allergy Severe Anaphylaxis Verified 02/06/20 20:05 Sulfa (Sulfonamide Allergy Severe Anaphylaxis Verified 02/06/20 20:05 Antibiotics) diphenhydramine HCl Allergy Nausea Verified 02/06/20 20:05 [From Benadryl] Review of Systems ROS Statement: Those systems with pertinent positive or pertinent negative responses have been documented in the HPI. ROS Other: All systems not noted in ROS Statement are negative. 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 Past Psychological History: Anxiety, Bipolar, Depression, Panic Disorder, PTSD, Schizoaffective Disorder Smoking Status: Current every day smoker Past Alcohol Use History: None Reported Past Drug Use History: Marijuana - Past Family History Mother Family Medical History: No Reported History Father Family Medical History: No Reported History Additional Family Medical History / Comment(s): bipolar, sever seasonal allergies Brother(s) Family Medical History: No Reported History Sister(s) Family Medical History: No Reported History General Exam Limitations: no limitations General appearance: alert, in no apparent distress Head exam: Present: atraumatic, normocephalic, normal inspection Eye exam: Present: normal appearance, PERRL, EOMI Pupils: Present: normal accommodation ENT exam: Present: normal exam, mucous membranes moist, TM's normal bilaterally, normal external ear exam. Absent: normal oropharynx (Mild to moderate tonsillar enlargement with erythema and exudates. No tenderness on the floor the mouth.) Neck exam: Present: normal inspection, full ROM, lymphadenopathy (Anterior cervical bilateral) Respiratory exam: Present: normal lung sounds bilaterally. Absent: respiratory distress, wheezes Cardiovascular Exam: Present: regular rate, normal rhythm, normal heart sounds Extremities exam: Present: normal inspection, full ROM. Absent: tenderness Back exam: Present: normal inspection, full ROM. Absent: tenderness Neurological exam: Present: alert, oriented X3 Psychiatric exam: Present: normal mood, flat affect Skin exam: Present: warm, dry, intact, normal color Course Vital Signs 02/06/20 20:03 Temperature 98.7 F Pulse Rate 91 Respiratory 20 Rate Blood Pressure 104/69 O2 Sat by Pulse 97 Oximetry Medical Decision Making - Medical Decision Making Patient is 24-year-old female resenting to emergency Department with the chief complaint was sore throat. On exam patient does fit the [facility] criteria for strep pharyngitis. Considering her history of recurrent strep pharyngitis she will be treated based on clinical diagnosis. Patient started on azithromycin in the ED and we will discharge her 4 more days of azithromycin. Patient also given steroid for symptomatically control and Tylenol. Return parameters were thoroughly discussed the patient is a nursing agreeable. Case discussed physician. Disposition Clinical Impression: Strep pharyngitis, Sore throat Disposition: HOME SELF-CARE Condition: Stable Instructions (If sedation given, give patient instructions): Strep Throat (DC) Additional Instructions: Take prescribed medication as directed. Follow-up with primary care. Follow with ENT specialist. Return to emergency department if symptoms worsen. Is patient prescribed a controlled substance at d/c from ED?: No Referrals: Shanell Pardo MD [Primary Care Provider] - 1-2 days Kit Awad DO [Doctor of Osteopathic Medicine] - 1-2 days Time of Disposition: 20:31
[2020-02-06] MEDS ORDERED: ACETAMINOPHEN TAB 325 MG TAB PO STA (20:25)
[2020-02-06] MEDS ORDERED: AZITHROMYCIN 500 MG TAB PO STA (20:25)
[2020-02-06] MEDS ORDERED: predniSONE 50 MG TAB PO STA (20:25)
== END 2020-02-06 20:42 | disposition home or self-care (01) ==
LOC: EC 19:58
DX: J02.0 Streptococcal pharyngitis (principal); J45.909 Unspecified asthma, uncomplicated; F17.200 Nicotine dependence, unspecified, uncomplicated; Z79.51 Long term (current) use of inhaled steroids; Z79.899 Other long term (current) drug therapy; Z88.0 Allergy status to penicillin; Z88.2 Allergy status to sulfonamides; Z88.8 Allergy status to other drugs, medicaments and biological substances
CPT/HCPCS: 99282; J7512

== ENCOUNTER 2020-02-10 07:26 | Emergency (ER) | payer OTHER ==
[2020-02-10 07:31] VITALS: RESP 16; TEMP 98.3
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
[2020-02-10 08:25] LABS: Appearance,Urine Clear (Clear); Bilirubin,Urine Negative (Negative); Blood,Urine Small (Negative); Color,Urine Yellow; Glucose,Urine (UA) Negative (Negative); Ketones,Urine Negative (Negative); Leukocyte Esterase,Urine Large (Negative); Nitrite,Urine Negative (Negative); Protein,Urine Negative (Negative); RBC,Urine 1 /hpf (0-5); Specific Gravity,Urine 1.017 (1.001-1.035); Squamous Epithelial Cell,Urine 1 /hpf (0-4); Urobilinogen,Urine <2.0 mg/dL (<2.0); WBC,Urine 1 /hpf (0-5)
[2020-02-10] MEDS ORDERED: metroNIDAZOLE 500 MG TAB PO STA (08:26)
[2020-02-10 08:36] VITALS: BP 120/75; PULSE 89
[2020-02-11 15:57] LABS: C. trachomatis,PCR Negative (Neg,Equiv); Chlamydia trachomatis Source Vagina; N. gonorrhoeae,PCR Negative (Neg,Equiv); Neisseria Source Vagina
== END 2020-02-10 08:38 | disposition home or self-care (01) ==
LOC: EC 07:26
DX: R10.2 Pelvic and perineal pain (principal); N89.8 Other specified noninflammatory disorders of vagina; R11.0 Nausea; J45.909 Unspecified asthma, uncomplicated; G43.909 Migraine, unspecified, not intractable, without status migrainosus; F41.9 Anxiety disorder, unspecified; F43.10 Post-traumatic stress disorder, unspecified; F25.0 Schizoaffective disorder, bipolar type; F25.1 Schizoaffective disorder, depressive type; F17.200 Nicotine dependence, unspecified, uncomplicated; Z87.442 Personal history of urinary calculi; Z96.0 Presence of urogenital implants; Z79.899 Other long term (current) drug therapy; Z79.51 Long term (current) use of inhaled steroids; Z79.1 Long term (current) use of non-steroidal anti-inflammatories (NSAID); Z88.0 Allergy status to penicillin; Z88.2 Allergy status to sulfonamides; Z88.8 Allergy status to other drugs, medicaments and biological substances
CPT/HCPCS: 81001; 81025; 87070; 87491; 87591; 87808; 99284

== ENCOUNTER 2020-03-05 13:41 | Emergency (ER) | payer OTHER ==
[2020-03-05] MEDS ORDERED: FLUCONAZOLE 150 MG TAB PO STA (14:52)
--- NOTE | 2020-03-05 14:54 | ED ---
General Adult HPI - General Chief complaint: Upper Respiratory Infection Stated complaint: cough Time Seen by Provider: 03/05/20 14:01 Source: patient, RN notes reviewed Mode of arrival: ambulatory Limitations: no limitations - History of Present Illness Initial comments: Patient is a pleasant 25-year-old female presenting to the emergency Department with cough. Onset of symptoms was 2 days ago. Cough has occasional yellow sputum. Patient does have history of asthma. Patient gets bronchitis yearly with similar symptoms to this. No fevers. No leg pain or leg swelling. Patient states she ran out of her albuterol inhaler. Patient also states she is having some mild vaginal itching and discharge consistent with previous yeast infection and patient requests medication for this. - Related Data Home Medications Medication Instructions Recorded Confirmed Cetirizine HCl [Zyrtec] 10 mg PO DAILY 05/19/19 02/10/20 Albuterol Sulfate [Albuterol 2 puff INHALATION RT-Q6H PRN 10/08/19 02/10/20 Sulfate Hfa] Fluticasone/Salmeterol 1 puff INHALATION RT-BID 11/29/19 02/10/20 [Fluticasone-Salmeterol 113-14] Multivitamins, Thera [Multivitamin 1 tab PO DAILY 11/29/19 02/10/20 (formulary)] ARIPiprazole [Abilify Maintena] 400 mg IM Q28D 02/10/20 02/10/20 Dextroamphetamine/Amphetamine 15 mg PO QAM 02/10/20 02/10/20 [Adderall Xr] Dextroamphetamine/Amphetamine 10 mg PO DAILY 02/10/20 02/10/20 [Adderall] Diclofenac Sodium [Voltaren] 75 mg PO BID 02/10/20 02/10/20 Magnesium Oxide [Mag-Ox] 400 mg PO HS 02/10/20 02/10/20 Meloxicam 15 mg PO DAILY PRN 02/10/20 02/10/20 traZODone HCL 50 mg PO HS 02/10/20 02/10/20 Previous Rx's Medication Instructions Recorded Albuterol Sulfate [Albuterol 2 puff INHALATION Q6H PRN #1 03/05/20 Sulfate Hfa] inhaler predniSONE [Deltasone] 20 mg PO BID #8 tab 03/05/20 Allergies Allergy/AdvReac Type Severity Reaction Status Date / Time Penicillins Allergy Severe Anaphylaxis Verified 03/05/20 14:01 Sulfa (Sulfonamide Allergy Severe Anaphylaxis Verified 03/05/20 14:01 Antibiotics) diphenhydramine HCl Allergy Nausea Verified 03/05/20 14:01 [From Benadryl] Review of Systems ROS Statement: Those systems with pertinent positive or pertinent negative responses have been documented in the HPI. ROS Other: All systems not noted in ROS Statement are negative. 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 Past Psychological History: Anxiety, Bipolar, Depression, Panic Disorder, PTSD, Schizoaffective Disorder Smoking Status: Current every day smoker Past Alcohol Use History: None Reported Past Drug Use History: Marijuana - Past Family History Mother Family Medical History: No Reported History Father Family Medical History: No Reported History Additional Family Medical History / Comment(s): bipolar, sever seasonal allergies Brother(s) Family Medical History: No Reported History Sister(s) Family Medical History: No Reported History General Exam Limitations: no limitations General appearance: alert, in no apparent distress Head exam: Present: normocephalic Eye exam: Present: normal appearance Neck exam: Present: normal inspection Respiratory exam: Present: rhonchi Cardiovascular Exam: Present: regular rate, normal rhythm GI/Abdominal exam: Present: soft. Absent: tenderness Extremities exam: Present: normal inspection. Absent: pedal edema, calf tenderness Neurological exam: Present: alert Psychiatric exam: Present: flat affect Skin exam: Present: normal color Course Vital Signs 03/05/20 13:56 Temperature 99.0 F Pulse Rate 95 Respiratory 16 Rate Blood Pressure 101/70 O2 Sat by Pulse 98 Oximetry Medical Decision Making - Medical Decision Making Patient reevaluated and resting comfortably in bed. Patient updated on results and need for follow-up. - Radiology Data Radiology results: image reviewed (Chest x-ray shows no acute process.) Disposition Clinical Impression: Asthmatic bronchitis Disposition: HOME SELF-CARE Condition: Stable Instructions (If sedation given, give patient instructions): Asthma (ED) Additional Instructions: Please follow-up with primary care physician in the next day or 2 for recheck. Return for difficulty in breathing, fevers, worsening or changing symptoms or other concerns. Prescription sent to [facility] on [place] Prescriptions: Albuterol Sulfate [Albuterol Sulfate Hfa] 2 puff INHALATION Q6H PRN #1 inhaler PRN Reason: Shortness Of Breath predniSONE [Deltasone] 20 mg PO BID #8 tab Is patient prescribed a controlled substance at d/c from ED?: No Referrals: Shanell Pardo MD [Primary Care Provider] - 1-2 days Time of Disposition: 15:06
--- NOTE | 2020-03-05 15:01 | XR ---
EXAMINATION TYPE: XR chest 2V DATE OF EXAM: 03/05/2020 COMPARISON: 10/08/2019 HISTORY: 25-year-old female with cough TECHNIQUE: PA and lateral views FINDINGS: The cardiomediastinal silhouette, aorta, and pulmonary vasculature are within normal limits. Lungs an d pleural spaces are clear. IMPRESSION: No acute cardiopulmonary process.
[2020-03-05 15:18] VITALS: BP 105/72; PULSE 90; RESP 18; TEMP 98.7
== END 2020-03-05 15:25 | disposition home or self-care (01) ==
LOC: EC 13:41
DX: J45.909 Unspecified asthma, uncomplicated (principal); K21.9 Gastro-esophageal reflux disease without esophagitis; F41.9 Anxiety disorder, unspecified; F32.9 Major depressive disorder, single episode, unspecified; N89.8 Other specified noninflammatory disorders of vagina; F17.200 Nicotine dependence, unspecified, uncomplicated; Z79.899 Other long term (current) drug therapy; Z79.51 Long term (current) use of inhaled steroids; Z79.1 Long term (current) use of non-steroidal anti-inflammatories (NSAID); Z88.0 Allergy status to penicillin; Z88.2 Allergy status to sulfonamides; Z88.6 Allergy status to analgesic agent
CPT/HCPCS: 71046; 99283

== ENCOUNTER 2020-05-21 14:01 | Emergency (ER) | payer OTHER ==
--- NOTE | 2020-05-21 15:16 | ED ---
Female Urogenital HPI - General Chief complaint: Urogenital Stated complaint: Female Time Seen by Provider: 05/21/20 14:10 Source: patient Mode of arrival: ambulatory Limitations: no limitations - History of Present Illness Initial comments: Patient is a 25-year-old female, well-known to the ER, presenting to the emergency Department with complaints of vaginal irritation, burning as well as increased urinary frequency x 3 days. She denies very little vaginal discharge, she is concerned she may have a yeast infection or UTI. She does admit to being sexually active. She states her last period was February 25 but she does not believe she is . She states she has not appointment for a pelvic ultrasound next month due to her missed periods. She denies any fever, chills, abdominal pain, nausea, vomiting. She has no further complaints at this time. Upon arrival to the ER, her vitals are stable. - Related Data Home Medications Medication Instructions Recorded Confirmed Cetirizine HCl [Zyrtec] 10 mg PO DAILY 05/19/19 02/10/20 Albuterol Sulfate [Albuterol 2 puff INHALATION RT-Q6H PRN 10/08/19 02/10/20 Sulfate Hfa] Fluticasone/Salmeterol 1 puff INHALATION RT-BID 11/29/19 02/10/20 [Fluticasone-Salmeterol 113-14] Multivitamins, Thera [Multivitamin 1 tab PO DAILY 11/29/19 02/10/20 (formulary)] ARIPiprazole [Abilify Maintena] 400 mg IM Q28D 02/10/20 02/10/20 Dextroamphetamine/Amphetamine 15 mg PO QAM 02/10/20 02/10/20 [Adderall Xr] Dextroamphetamine/Amphetamine 10 mg PO DAILY 02/10/20 02/10/20 [Adderall] Diclofenac Sodium [Voltaren] 75 mg PO BID 02/10/20 02/10/20 Magnesium Oxide [Mag-Ox] 400 mg PO HS 02/10/20 02/10/20 Meloxicam 15 mg PO DAILY PRN 02/10/20 02/10/20 traZODone HCL 50 mg PO HS 02/10/20 02/10/20 Previous Rx's Medication Instructions Recorded Albuterol Sulfate [Albuterol 2 puff INHALATION Q6H PRN #1 03/05/20 Sulfate Hfa] inhaler predniSONE [Deltasone] 20 mg PO BID #8 tab 03/05/20 Allergies Allergy/AdvReac Type Severity Reaction Status Date / Time Penicillins Allergy Severe Anaphylaxis Verified 05/21/20 14:07 Sulfa (Sulfonamide Allergy Severe Anaphylaxis Verified 05/21/20 14:07 Antibiotics) diphenhydramine HCl Allergy Nausea Verified 05/21/20 14:07 [From Benadryl] Review of Systems ROS Statement: Those systems with pertinent positive or pertinent negative responses have been documented in the HPI. ROS Other: All systems not noted in ROS Statement are negative. 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 Past Psychological History: Anxiety, Bipolar, Depression, Panic Disorder, PTSD, Schizoaffective Disorder Smoking Status: Current every day smoker Past Alcohol Use History: None Reported Past Drug Use History: Marijuana - Past Family History Mother Family Medical History: No Reported History Father Family Medical History: No Reported History Additional Family Medical History / Comment(s): bipolar, sever seasonal allergies Brother(s) Family Medical History: No Reported History Sister(s) Family Medical History: No Reported History General Exam - General Exam Comments Initial Comments: GENERAL: Patient is well-developed and well-nourished. Patient is nontoxic and in no acute distress. HEAD: Atraumatic, normocephalic. EYES: Pupils equal round and reactive to light, extraocular movements intact, sclera anicteric, conjunctiva are normal. Eyelids were unremarkable. ENT: TMs normal, nares patent, oropharynx clear without exudates. Moist mucous membranes. NECK: Normal range of motion, supple without lymphadenopathy or JVD. LUNGS: Unlabored respirations. Breath sounds clear to auscultation bilaterally and equal. No wheezes rales or rhonchi. HEART: Regular rate and rhythm without murmurs, rubs or gallops. ABDOMEN: Soft, nontender, normoactive bowel sounds. No guarding, no rebound. No masses appreciated. MUSCULOSKELETAL: Normal extremities with adequate strength and normal range of motion, no pitting or edema. No clubbing or cyanosis. NEUROLOGICAL: Patient is alert and oriented x 3. Symmetrical smile. Normal speech, normal gait. PSYCH: Normal mood, normal affect. SKIN: Warm, Dry, normal turgor, no rashes or lesions noted. Limitations: no limitations External exam: Present: normal external exam Speculum exam: Present: normal speculum exam. Absent: cervical discharge, vaginal bleeding, foreign body By manual exam: Present: normal by manual exam Course Vital Signs 05/21/20 14:04 Temperature 98.5 F Pulse Rate 94 Respiratory 20 Rate Blood Pressure 114/81 O2 Sat by Pulse 99 Oximetry Medical Decision Making - Medical Decision Making Patient is a 25-year-old female here with complaints of vaginal irritation, urinary frequency, burning 3 days. Her vitals are stable. Her vaginal exam is normal. Urinalysis reveals no evidence of infection, trichomonas is negative, hCG is negative. Patient is very concerned for STD, I will treat her with Rocephin and azithromycin and Diflucan. Patient is in agreement with this plan of care. She is stable for discharge. Return parameters were discussed with the patient and she verbalized understanding. - Lab Data Lab Results 05/21/20 05/21/20 05/21/20 Range/Units 15:12 15:12 15:12 Urine Color Yellow Urine Appearance Cloudy H (Clear) Urine pH 5.5 (5.0-8.0) Ur Specific [place] 1.031 (1.001-1.035) Urine Protein Negative (Negative) Urine Glucose (UA) Negative (Negative) Urine Ketones Negative (Negative) Urine Blood Negative (Negative) Urine Nitrite Negative (Negative) Urine Bilirubin Negative (Negative) Urine Urobilinogen <2.0 (<2.0) mg/dL Ur Leukocyte Esterase Negative (Negative) Urine RBC 1 (0-5) /hpf Urine WBC 7 H (0-5) /hpf Ur Squamous Epith Cells 20 H (0-4) /hpf Urine Bacteria Rare H (None) /hpf Urine Mucus Occasional H (None) /hpf Urine HCG, Qual Not Detected (Not Detectd) Trichomonas Ag (Rapid) Negative (Negative) Disposition Clinical Impression: Vaginal Discharge, STD exposure Disposition: HOME SELF-CARE Condition: Stable Instructions (If sedation given, give patient instructions): Safe Sex (ED) Additional Instructions: Please return to the Emergency Department if symptoms worsen or any other concerns. Is patient prescribed a controlled substance at d/c from ED?: No Referrals: Shanell Pardo MD [Primary Care Provider] - 1-2 days
[2020-05-21 15:30] LABS: Appearance,Urine Cloudy (Clear); Bacteria,Urine Rare /hpf; Bilirubin,Urine Negative (Negative); Blood,Urine Negative (Negative); Color,Urine Yellow; Glucose,Urine (UA) Negative (Negative); Ketones,Urine Negative (Negative); Leukocyte Esterase,Urine Negative (Negative); Mucus,Urine Occasional /hpf; Nitrite,Urine Negative (Negative); PH, Urine 5.5 (5.0-8.0); Protein,Urine Negative (Negative); RBC,Urine 1 /hpf (0-5); Specific Gravity,Urine 1.031 (1.001-1.035); Squamous Epithelial Cell,Urine 20 /hpf (0-4); Urobilinogen,Urine <2.0 mg/dL (<2.0); WBC,Urine 7 /hpf (0-5)
[2020-05-21] MEDS ORDERED: cefTRIAXone 250 MG VIAL IM STA (15:49)
[2020-05-21] MEDS ORDERED: AZITHROMYCIN 250 MG TAB PO STA (15:49)
[2020-05-21] MEDS ORDERED: FLUCONAZOLE 150 MG TAB PO STA (15:50)
[2020-05-21 16:23] VITALS: BP 138/70; PULSE 87; RESP 16; TEMP 97
== END 2020-05-21 16:22 | disposition home or self-care (01) ==
LOC: EC 14:01
DX: N89.8 Other specified noninflammatory disorders of vagina (principal); R35.0 Frequency of micturition; J45.909 Unspecified asthma, uncomplicated; F17.200 Nicotine dependence, unspecified, uncomplicated; F41.9 Anxiety disorder, unspecified; F31.9 Bipolar disorder, unspecified; F25.9 Schizoaffective disorder, unspecified; F41.0 Panic disorder [episodic paroxysmal anxiety]; Z79.51 Long term (current) use of inhaled steroids; Z79.899 Other long term (current) drug therapy; Z88.0 Allergy status to penicillin; Z88.2 Allergy status to sulfonamides; Z88.8 Allergy status to other drugs, medicaments and biological substances; Z20.2 Contact with and (suspected) exposure to infections with a predominantly sexual mode of transmission; Z32.02 Encounter for pregnancy test, result negative
CPT/HCPCS: 81001; 81025; 87808; 87491; 87591; 99283; 96372; J0696

== ENCOUNTER 2020-09-13 21:39 | Emergency (ER) | payer OTHER ==
[2020-09-13 21:59] VITALS: BP 132/88; PULSE 94; RESP 18; TEMP 98.5
[2020-09-14 00:29] LABS: Amphetamine Screen,Urine Detected (NotDetected); Barbiturate Screen,Urine Not Detected (NotDetected); Benzodiazepines Screen,Urine Not Detected (NotDetected); Cocaine Screen,Urine Not Detected (NotDetected); Methadone Screen, Urine Not Detected (NotDetected); Opiate Screen,Urine Not Detected (NotDetected); Oxycodone Screen, Urine Not Detected (NotDetected); Phencyclidine Screen,Urine Not Detected (NotDetected); Tricyclic Antidepressant,Urine Not Detected (NotDetected); Urn Cannabinoid Scrn Not Detected (NotDetected)
--- NOTE | 2020-09-14 00:29 | ED ---
General Adult HPI - General Chief complaint: Psychiatric Symptoms Stated complaint: Mental Health Time Seen by Provider: 09/13/20 22:41 Source: patient, police Mode of arrival: ambulatory Limitations: no limitations - History of Present Illness Initial comments: 25-year-old female patient presents to the emergency department today for psychiatric evaluation, she was brought in on a pickup order from the Court. Patient denies any current suicidal or homicidal ideation. States that she possibly missed an appointment to sign her new court order on Sunday, however states that she did attempt to find out when the appointment was, but no one would call her back. Patient hasn't taking her medications as instructed. Denies any hallucinations. Denies any alcohol or drug use today. States that she does have a sore throat and nasal congestion is a started earlier today. Denies any fever or chills with this. She did take some Tylenol earlier today didn't seem to help. Patient denies any recent, cough, shortness of breath, chest pain, abdominal pain, nausea, vomiting, diarrhea, constipation, back pain, numbness, tingling, dizziness, weakness, hematuria, dysuria, urinary urgency, urinary frequency, headache, visual changes, or any other complaints. She denies chance of . - Related Data Home Medications Medication Instructions Recorded Confirmed Cetirizine HCl [Zyrtec] 10 mg PO DAILY 05/19/19 02/10/20 Albuterol Sulfate [Albuterol 2 puff INHALATION RT-Q6H PRN 10/08/19 02/10/20 Sulfate Hfa] Fluticasone/Salmeterol 1 puff INHALATION RT-BID 11/29/19 02/10/20 [Fluticasone-Salmeterol 113-14] Multivitamins, Thera [Multivitamin 1 tab PO DAILY 11/29/19 02/10/20 (formulary)] ARIPiprazole [Abilify Maintena] 400 mg IM Q28D 02/10/20 02/10/20 Dextroamphetamine/Amphetamine 15 mg PO QAM 02/10/20 02/10/20 [Adderall Xr] Dextroamphetamine/Amphetamine 10 mg PO DAILY 02/10/20 02/10/20 [Adderall] Diclofenac Sodium [Voltaren] 75 mg PO BID 02/10/20 02/10/20 Magnesium Oxide [Mag-Ox] 400 mg PO HS 02/10/20 02/10/20 Meloxicam 15 mg PO DAILY PRN 02/10/20 02/10/20 traZODone HCL 50 mg PO HS 02/10/20 02/10/20 Previous Rx's Medication Instructions Recorded Albuterol Sulfate [Albuterol 2 puff INHALATION Q6H PRN #1 03/05/20 Sulfate Hfa] inhaler predniSONE [Deltasone] 20 mg PO BID #8 tab 03/05/20 Allergies Allergy/AdvReac Type Severity Reaction Status Date / Time Penicillins Allergy Severe Anaphylaxis Verified 09/13/20 22:00 Sulfa (Sulfonamide Allergy Severe Anaphylaxis Verified 09/13/20 22:00 Antibiotics) diphenhydramine HCl Allergy Nausea Verified 09/13/20 22:00 [From Benadryl] Review of Systems ROS Statement: Those systems with pertinent positive or pertinent negative responses have been documented in the HPI. ROS Other: All systems not noted in ROS Statement are negative. 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 Past Psychological History: Anxiety, Bipolar, Depression, Panic Disorder, PTSD, Schizoaffective Disorder Smoking Status: Current every day smoker Past Alcohol Use History: None Reported Past Drug Use History: Marijuana - Past Family History Mother Family Medical History: No Reported History Father Family Medical History: No Reported History Additional Family Medical History / Comment(s): bipolar, sever seasonal allergies Brother(s) Family Medical History: No Reported History Sister(s) Family Medical History: No Reported History General Exam Limitations: no limitations General appearance: alert, in no apparent distress, other Eye exam: Present: normal appearance, PERRL, EOMI. Absent: scleral icterus, c onjunctival injection, periorbital swelling ENT exam: Present: mucous membranes moist, TM's normal bilaterally. Absent: normal oropharynx (Pharyngeal erythema. No tonsillar hypertrophy, asymmetry, exudate noted. Uvula is midline.) Neck exam: Present: normal inspection, full ROM. Absent: tenderness, meningismus, lymphadenopathy Respiratory exam: Present: normal lung sounds bilaterally. Absent: respiratory distress, wheezes, rales, rhonchi, stridor Cardiovascular Exam: Present: regular rate, normal rhythm, normal heart sounds. Absent: systolic murmur, diastolic murmur, rubs, gallop, clicks GI/Abdominal exam: Present: soft, normal bowel sounds. Absent: distended, tenderness, guarding, rebound, rigid Neurological exam: Present: alert, oriented X3, CN II-XII intact Psychiatric exam: Present: normal affect, normal mood Skin exam: Present: warm, dry, intact, normal color. Absent: rash Course Vital Signs 09/13/20 21:56 Temperature 98.5 F Pulse Rate 94 Respiratory 18 Rate Blood Pressure 132/88 O2 Sat by Pulse 99 Oximetry Medical Decision Making - Medical Decision Making 25-year-old female patient presents to the emergency department today and pickup order from the Court. Apparently the patient missed an appointment on Sunday to renew her court order. States she did attempt to go to the appointment. She is also reporting nasal congestion and sore throat here. Physical examination did reveal pharyngeal erythema no tonsillar hypertrophy, exudate, or asymmetry. Uvula was midline. She is afebrile normal vital signs. Symptoms are consistent with viral upper respiratory infection. She was seen and evaluated by emergency psychiatric services. They were able to develop a safety plan and she will be discharged home. She is instructed to follow up with her psychiatrist. Return parameters were discussed in detail. She verbalizes understanding and agrees with this plan. Case discussed with my attending Dr. Bella. - Lab Data Lab Results 09/13/20 09/13/20 Range/Units 23:58 23:58 Urine HCG, Qual Not Detected (Not Detectd) Urine Opiates Screen Not Detected (NotDetected) Ur Oxycodone Screen Not Detected (NotDetected) Urine Methadone Screen Not Detected (NotDetected) Ur Propoxyphene Screen Not Detected (NotDetected) Ur Barbiturates Screen Not Detected (NotDetected) U Tricyclic Antidepress Not Detected (NotDetected) Ur Phencyclidine Scrn Not Detected (NotDetected) Ur Amphetamines Screen Detected H (NotDetected) U Methamphetamines Scrn Not Detected (NotDetected) U Benzodiazepines Scrn Not Detected (NotDetected) Urine Cocaine Screen Not Detected (NotDetected) U Marijuana (THC) Screen Not Detected (NotDetected) Disposition Clinical Impression: Viral upper respiratory illness, Evaluation by psychiatric service required Disposition: HOME SELF-CARE Condition: Good Instructions (If sedation given, give patient instructions): Upper Respiratory Infection (ED) Additional Instructions: Increase fluids. Rest. Follow-up with your psychiatrist outpatient as di tania. Return to the emergency department for any new, worsening, or concerning symptoms. Is patient prescribed a controlled substance at d/c from ED?: No Referrals: Shanell Pardo MD [Primary Care Provider] - 1-2 days Time of Disposition: 00:53
[2020-09-14] MEDS ORDERED: IBUPROFEN 600 MG TAB PO STA (00:54)
[2020-09-14] MEDS ORDERED: DEXAMETHASONE SOD PHOSPHATE 10 MG/ML 1 ML VIAL IM STA (00:54)
== END 2020-09-14 01:08 | disposition home or self-care (01) ==
LOC: EC 21:39
DX: Z04.6 Encounter for general psychiatric examination, requested by authority (principal); J06.9 Acute upper respiratory infection, unspecified; F41.9 Anxiety disorder, unspecified; F31.9 Bipolar disorder, unspecified; F41.0 Panic disorder [episodic paroxysmal anxiety]; F25.9 Schizoaffective disorder, unspecified; J45.909 Unspecified asthma, uncomplicated; K21.9 Gastro-esophageal reflux disease without esophagitis; F17.200 Nicotine dependence, unspecified, uncomplicated; Z79.51 Long term (current) use of inhaled steroids; Z79.899 Other long term (current) drug therapy; Z88.0 Allergy status to penicillin; Z88.2 Allergy status to sulfonamides; Z88.8 Allergy status to other drugs, medicaments and biological substances; Z86.69 Personal history of other diseases of the nervous system and sense organs
CPT/HCPCS: 82075; 81025; 80306; 99284; J1100

== ENCOUNTER 2020-11-05 21:46 | Inpatient (IN) | payer MEDICAID, OTHER ==
--- NOTE | 2020-11-05 21:57 | ED ---
Psych HPI <Anthony Bella - Last Filed: 11/05/20 23:18> <Roque Haro - Last Filed: 11/06/20 00:15> - General Stated Complaint: Mental Health Time Seen by Provider: 11/05/20 21:51 - History of Present Illness Initial Comments: 25-year-old female with history of schizoaffective disorder presents to emergency department for psychiatric evaluation. Patient was petitioned by her mother and brought by the [facility]. Patient does report having auditory hallucinations to the [facility]. Patient refuses to talk her evaluation. (Roque Haro) - Related Data Home Medications Medication Instructions Recorded Confirmed Cetirizine HCl [Zyrtec] 10 mg PO DAILY 05/19/19 02/10/20 Albuterol Sulfate [Albuterol 2 puff INHALATION RT-Q6H PRN 10/08/19 02/10/20 Sulfate Hfa] Fluticasone/Salmeterol 1 puff INHALATION RT-BID 11/29/19 02/10/20 [Fluticasone-Salmeterol 113-14] Multivitamins, Thera [Multivitamin 1 tab PO DAILY 11/29/19 02/10/20 (formulary)] ARIPiprazole [Abilify Maintena] 400 mg IM Q28D 02/10/20 02/10/20 Dextroamphetamine/Amphetamine 15 mg PO QAM 02/10/20 02/10/20 [Adderall Xr] Dextroamphetamine/Amphetamine 10 mg PO DAILY 02/10/20 02/10/20 [Adderall] Diclofenac Sodium [Voltaren] 75 mg PO BID 02/10/20 02/10/20 Magnesium Oxide [Mag-Ox] 400 mg PO HS 02/10/20 02/10/20 Meloxicam 15 mg PO DAILY PRN 02/10/20 02/10/20 traZODone HCL 50 mg PO HS 02/10/20 02/10/20 Previous Rx's Medication Instructions Recorded Albuterol Sulfate [Albuterol 2 puff INHALATION Q6H PRN #1 03/05/20 Sulfate Hfa] inhaler predniSONE [Deltasone] 20 mg PO BID #8 tab 03/05/20 Allergies Allergy/AdvReac Type Severity Reaction Status Date / Time Penicillins Allergy Severe Anaphylaxis Verified 09/13/20 22:00 Sulfa (Sulfonamide Allergy Severe Anaphylaxis Verified 09/13/20 22:00 Antibiotics) diphenhydramine HCl Allergy Nausea Verified 09/13/20 22:00 [From Benadryl] Review of Systems ROS Other: All systems not noted in ROS Statement are negative. <Anthony Bella - Last Filed: 11/05/20 23:18> ROS Other: All systems not noted in ROS Statement are negative. <Roque Haro - Last Filed: 11/06/20 00:15> ROS Statement: Those systems with pertinent positive or pertinent negative responses have been documented in the HPI. 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 Past Psychological History: Anxiety, Bipolar, Depression, Panic Disorder, PTSD, Schizoaffective Disorder Smoking Status: Current every day smoker Past Alcohol Use History: None Reported Past Drug Use History: Marijuana - Past Family History Mother Family Medical History: No Reported History Father Family Medical History: No Reported History Additional Family Medical History / Comment(s): bipolar, sever seasonal allergies Brother(s) Family Medical History: No Reported History Sister(s) Family Medical History: No Reported History <Roque Haro - Last Filed: 11/06/20 00:15> General Exam Limitations: no limitations General appearance: alert, in no apparent distress Head exam: Present: atraumatic, normocephalic, normal inspection Eye exam: Present: normal appearance Pupils: Present: normal accommodation ENT exam: Present: normal exam Neck exam: Present: normal inspection, full ROM Respiratory exam: Present: normal lung sounds bilaterally. Absent: respiratory distress Cardiovascular Exam: Present: regular rate, normal rhythm, normal heart sounds Back exam: Present: normal inspection, full ROM Neurological exam: Present: alert, oriented X3, normal gait Psychiatric exam: Present: normal affect, normal mood Skin exam: Present: warm, dry, intact, normal color <Roque Haro - Last Filed: 11/06/20 00:15> Course <Anthony Bella - Last Filed: 11/05/20 23:18> Vital Signs 11/05/20 21:51 Temperature 98.5 F Pulse Rate 79 Respiratory 16 Rate Blood Pressure 120/74 O2 Sat by Pulse 97 Oximetry - Reevaluation(s) Reevaluation #1: 11/05/20 23:19 I saw this patient in conjunction with the physician ob gyn physician assistant. I performed independent history and physical exam. Agree with case management. I completed the clinical certification it (Anthony Bella) Medical Decision Making <Roque Haro - Last Filed: 11/06/20 00:15> - Medical Decision Making 25-year-old female presents to emergency department for psychiatric evaluation. Patient refuses to talk on evaluation. Negative urine drug screen and . A certification was completed by . Patient was evaluated by EPS and will be admitted for further psychiatric management. (Roque Haro) - Lab Data Lab Results 11/05/20 11/05/20 11/05/20 Range/Units 22:15 23:35 23:35 Urine HCG, Qual Not Detected (Not Detectd) Urine Opiates Screen Not Detected (NotDetected) Ur Oxycodone Screen Not Detected (NotDetected) Urine Methadone Screen Not Detected (NotDetected) Ur Propoxyphene Screen Not Detected (NotDetected) Ur Barbiturates Screen Not Detected (NotDetected) U Tricyclic Antidepress Not Detected (NotDetected) Ur Phencyclidine Scrn Not Detected (NotDetected) Ur Amphetamines Screen Not Detected (NotDetected) U Methamphetamines Scrn Not Detected (NotDetected) U Benzodiazepines Scrn Not Detected (NotDetected) Urine Cocaine Screen Not Detected (NotDetected) U Marijuana (THC) Screen Not Detected (NotDetected) Coronavirus (PCR) Not Detected (Not Detectd) Disposition <Anthony Bella - Last Filed: 11/05/20 23:18> Is patient prescribed a controlled substance at d/c from ED?: No Time of Disposition: 00:15 <Roque Haro - Last Filed: 11/06/20 00:15> Clinical Impression: Adjustment reaction of adult life Disposition: ADMITTED IP TO THIS HOSP Condition: Fair
[2020-11-05] MEDS ORDERED: MAG HYDROX/AL HYDROX/SIMETH 30 ML CUP PO PRN (23:51)
[2020-11-05 23:56] LABS: Amphetamine Screen,Urine Not Detected (NotDetected); Barbiturate Screen,Urine Not Detected (NotDetected); Benzodiazepines Screen,Urine Not Detected (NotDetected); Cocaine Screen,Urine Not Detected (NotDetected); Methadone Screen, Urine Not Detected (NotDetected); Opiate Screen,Urine Not Detected (NotDetected); Oxycodone Screen, Urine Not Detected (NotDetected); Phencyclidine Screen,Urine Not Detected (NotDetected); Tricyclic Antidepressant,Urine Not Detected (NotDetected); Urn Cannabinoid Scrn Not Detected (NotDetected)
[2020-11-05] MEDS ORDERED: HALOPERIDOL LACTATE 5 MG/ML 1 ML VIAL IM PRN (23:57)
[2020-11-05] MEDS ORDERED: LORazepam 2 MG/ML INJ IM PRN (23:57)
[2020-11-06] MEDS: haloperidoL 5 MG TAB PO PRN ×2 (00:59→20:11)
[2020-11-06] MEDS: LORazepam 1 MG TAB PO PRN ×2 (00:59→20:11)
[2020-11-06] MEDS: ACETAMINOPHEN TAB 325 MG TAB PO PRN ×2 (01:00→21:31)
[2020-11-06] MEDS: NICOTINE 14MG/24HR PATCH TRANSDERM SCH (09:02)
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
[2020-11-07] MEDS: NICOTINE 14MG/24HR PATCH TRANSDERM SCH (08:25)
[2020-11-07] MEDS: ACETAMINOPHEN TAB 325 MG TAB PO PRN (08:25)
[2020-11-07] MEDS: haloperidoL 5 MG TAB PO PRN ×2 (09:39→21:21)
[2020-11-07] MEDS: LORazepam 1 MG TAB PO PRN ×2 (09:39→21:21)
--- NOTE | 2020-11-07 20:15 | P.PN ---
Progress Note - Text Progress Note Date: 11/07/20 Identifying information 25-year-old female with history of schizoaffective disorder and medication non compliance admitted through emergency department with petition filed by her mother due to being delusional. She refused to sign voluntary treatment consent. Second clinical cert was completed. Patient says no to most of the questions. She stays inside her room most of the day. Mental Status Exam: General Appearance: Patient appears stated age in Fair hygiene and grooming. Behavior: Patient is superficially coopearative Speech: Doesnt talk much. Guarded Mood/Affect: Mood is OK. Affect is constricted. Suicidality/Homicidality: No suicidal ideation no homicidal ideation, intention, and/or plan. Perceptions: Patient denies any visual hallucinations or auditory hallucinations today. Though content/process: Patient is delusional about having a baby inside her and wants to take only multivitamins. Judgment and insight: Limited Diagnosis Schizoaffective disorder. Plan -Patient continues to meet criteria for inpatient psychiatric admission for symptom stabilization and safety. Patient is refusing to take medications stating she doesn't belong int he hospital and needs to go home. Monitor for symptoms PRN medications for agitation or aggression To receive milieu therapy group therapy individual therapy occupational therapy recreational therapy and medication education. Discharge with outpatient follow-up.
--- NOTE | 2020-11-08 01:04 | P.MDCNMH ---
History of Present Illness H&P Date: 11/07/20 Chief Complaint: Acute psychosis Patient is a 24-year-old female with a known history of asthma, GERD, history of renal stones, migraine headaches and history of closed head injury with the brain injury as a child., Anxiety/depression/bipolar disorder and panic disorder and schizoaffective disorder and previous history of smoking and marijuana daily use was brought to the hospital for psychiatric evaluation. Patient was petitioned by her mother and brought by the manager financial. Patient has been having auditory hallucinations. Patient has been noncompliant with her medications. Patient is unable to provide history at this time. Refusing her medications. Patient has been afebrile. No nausea vomiting or abdominal pain or diarrhea. 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 Past Psychological History: Anxiety, Bipolar, Depression, Panic Disorder, PTSD, Schizoaffective Disorder Additional Psychological History / Comment(s): posttraumatic stress disorder,anxiety/panic disorder, mood disorder, denies schizophrenia Smoking Status: Former smoker Past Alcohol Use History: None Reported Additional Past Alcohol Use History / Comment(s): smoking < 1 PPD, has smoked for 10 yrs Past Drug Use History: Marijuana Additional Drug Use History / Comment(s): Patient states that she smokes MJ daily -denies crack - Past Family History Mother Family Medical History: No Reported History Father Family Medical History: No Reported History Additional Family Medical History / Comment(s): bipolar, sever seasonal allergies Brother(s) Family Medical History: No Reported History Sister(s) Family Medical History: No Reported History Medications and Allergies Home Medications Medication Instructions Recorded Confirmed Type Cetirizine HCl [Zyrtec] 10 mg PO DAILY 05/19/19 02/10/20 History Albuterol Sulfate [Albuterol 2 puff INHALATION RT-Q6H PRN 10/08/19 02/10/20 History Sulfate Hfa] Fluticasone/Salmeterol 1 puff INHALATION RT-BID 11/29/19 02/10/20 History [Fluticasone-Salmeterol 113-14] Multivitamins, Thera [Multivitamin 1 tab PO DAILY 11/29/19 02/10/20 History (formulary)] ARIPiprazole [Abilify Maintena] 400 mg IM Q28D 02/10/20 02/10/20 History Dextroamphetamine/Amphetamine 15 mg PO QAM 02/10/20 02/10/20 History [Adderall Xr] Dextroamphetamine/Amphetamine 10 mg PO DAILY 02/10/20 02/10/20 History [Adderall] Diclofenac Sodium [Voltaren] 75 mg PO BID 02/10/20 02/10/20 History Magnesium Oxide [Mag-Ox] 400 mg PO HS 02/10/20 02/10/20 History Meloxicam 15 mg PO DAILY PRN 02/10/20 02/10/20 History traZODone HCL 50 mg PO HS 02/10/20 02/10/20 History Albuterol Sulfate [Albuterol 2 puff INHALATION Q6H PRN #1 03/05/20 Rx Sulfate Hfa] inhaler predniSONE [Deltasone] 20 mg PO BID #8 tab 03/05/20 Rx Allergies Allergy/AdvReac Type Severity Reaction Status Date / Time Penicillins Allergy Severe Anaphylaxis Verified 11/06/20 04:26 Sulfa (Sulfonamide Allergy Severe Anaphylaxis Verified 11/06/20 04:26 Antibiotics) diphenhydramine HCl Allergy Nausea Verified 11/06/20 04:26 [From Benadryl] Physical Exam Vitals: Vital Signs Temp 11/07/20 12:55 97.8 F Intake and Output 11/07/20 11/07/20 11/07/20 06:59 14:59 22:59 Other: Weight 88 kg PHYSICAL EXAMINATION: Patient is lying in the bed comfortably, no acute distress, awake alert agitated.. HEENT: Normocephalic. Neck is supple. Pupils reactive. Nostrils clear. Oral cavity is moist. Ears reveal no drainage. Neck reveals no JVD, carotid bruits, or thyromegaly. CHEST EXAMINATION: Trachea is central. Symmetrical expansion. Lung lovett clear to auscultation and percussion. CARDIAC: Normal S1, S2 with no gallops. No murmurs ABDOMEN: Soft. Bowel sounds normal. No organomegaly. No abdominal bruits. Extremities: reveal no edema. No clubbing or cyanosis Neurologically awake, alert, well-coordinated movements. No focal deficits noted Skin: No rash or skin lesions. Psychiatric: Could not be assessed. Musculoskeletal: No joint swelling or deformity. Normal range of motion. Cranial Nerve Examination - Cranial Nerves Cranial Nerve I- Olfactory: Intact Cranial Nerve II- Optic: Intact Cranial Nerve III- Oculomotor: Intact Cranial Nerve IV- Trochlear: Intact Cranial Nerve V- Trigeminal: Intact Cranial Nerve - Abducens: Intact Cranial Nerve VII- Facial: Intact Cranial Nerve VIII- Auditory: Intact Cranial Nerve IX- Glossopharyngeal: Intact Cranial Nerve X- Vagus: Intact Cranial Nerve XI- Accessory: Intact Cranial Nerve XII- Hypoglossal: Intact Assessment and Plan Assessment: Schizoaffective disorder Visual hallucination and was petitioned by her mother. Asthma not in exacerbation GERD History of migraine headaches Anxiety/depression, bipolar disorder and panic disorder and PTSD Previous history of smoking Marijuana use on daily basis DVT prophylaxis with early ambulation Plan: Patient will be continued on current psychiatric medications and plan. Patient can be given breathing treatments as needed for asthma. Follow-up CBC and CMP and TSH level. We will continue to follow with you and further recommendations based on the clinical course. Time with Patient: Greater than 30
[2020-11-08 08:54] LABS: Basophils % (A) 1 %; Eosinophils # (A) 0.2 k/uL (0-0.7); Eosinophils % (A) 3 %; HCT 41.4 % (34.0-46.0); HGB 13.3 gm/dL (11.4-16.0); Lymphocytes # (A) 2.9 k/uL (1.0-4.8); Lymphocytes % (A) 39 %; MCH 28.5 pg (25.0-35.0); MCHC 32.2 g/dL (31.0-37.0); MCV 88.5 fL (80.0-100.0); Mean Platelet Volume 10.3; Monocytes # (A) 0.3 k/uL (0-1.0); Monocytes % (A) 4 %; Neutrophils # (A) 3.8 k/uL (1.3-7.7); Neutrophils % (A) 52 %; Platelet Count 203 k/uL (150-450); RBC 4.68 m/uL (3.80-5.40); RDW 13.6 % (11.5-15.5); WBC 7.4 k/uL (3.8-10.6)
[2020-11-08 09:15] LABS: ALT 34 U/L (4-34); AST 30 U/L (14-36); African American GFR (CKD) >90 (>60 ml/min/1.73 sqM); Alkaline Phosphatase 80 U/L (38-126); Anion Gap 6 mmol/L; Blood Urea Nitrogen 9 mg/dL (7-17); Calcium 9.2 mg/dL (8.4-10.2); Carbon Dioxide 27 mmol/L (22-30); Chloride 103 mmol/L (98-107); Glucose 72 mg/dL (74-99); Non-African American GFR(CKD) >90 (>60 ml/min/1.73 sqM); Potassium 4.2 mmol/L (3.5-5.1); Sodium 136 mmol/L (137-145); Total Bilirubin 0.4 mg/dL (0.2-1.3); Total Protein 6.7 g/dL (6.3-8.2)
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
[2020-11-08] MEDS: NICOTINE 14MG/24HR PATCH TRANSDERM SCH (10:39)
[2020-11-08] MEDS: SYMBICORT 80-4.5 MCG INHALER (MHU) INHALATION SCH ×2 (10:48→21:37)
[2020-11-08] MEDS: ARIPiprazole 5 MG TAB PO SCH (10:48)
[2020-11-08] MEDS: LORazepam 1 MG TAB PO PRN (14:26)
[2020-11-08] MEDS: haloperidoL 5 MG TAB PO PRN (15:15)
[2020-11-08] MEDS ORDERED: BENZTROPINE 2 MG/2 ML AMP IM PRN (17:16)
[2020-11-08] MEDS ORDERED: HALOPERIDOL LACTATE 5 MG/ML 1 ML VIAL IM STA (17:16)
[2020-11-08] MEDS ORDERED: BENZTROPINE MESYLATE 1 MG TAB PO PRN (17:17)
[2020-11-09] MEDS: ARIPiprazole 5 MG TAB PO SCH (09:03)
[2020-11-09] MEDS: haloperidoL 5 MG TAB PO PRN ×3 (09:04→20:33)
[2020-11-09] MEDS: SYMBICORT 80-4.5 MCG INHALER (MHU) INHALATION SCH ×2 (09:04→20:33)
--- NOTE | 2020-11-09 09:28 | P.PN ---
Progress Note - Text Progress Note Date: 11/09/20 Interval History: Patient was seen by video games storywriter wandering the hallways into her room and was agreea ble to speak to video games storywriter in the office today. Patient appeared to have a constricted affect and was looking at her fingers during conversation. She was monotone and concrete. She claims that she has been taking the Abilify and feels that it is helping her mood "be more stable". She states that yesterday she received Haldol because she was upset at her mother. When I asked more about it she says "I just don't want to speak to her anymore". Patient appears to have mildly improved insight and judgment. She was appearing to be fairly bizarre and had a flat affect. She had improving hygiene and grooming. She denied any depression or anxiety today. States that she sleeps fairly. At this time patient denies any suicidal or homical ideations, intent or plan. Patient denies any auditory, visual hallucinations. Mental Status Exam: General Appearance: Patient appears to be overweight, wearing a dress, stated age is alert, directable and has a flat affect. Looking at the ground and at h er fingers. Behavior: Patient is calmly seated without any agitated behavior. Less Seroquel today. Speech: Patient's speech is fluent and nonpressured. Monotone Mood/Affect: Mood is "ok", affect is congruent and flat Suicidality/Homicidality: Patient denies having any suicidal or homicidal ideation intent or plan. Perceptions: Patient denies any visual hallucinations and denies any auditory h allucinations Though content/process: Less preoccupied with her stressors and her mother today. More logical today. Memory and concentration: AOX3, grossly intact for the purposes of this session Judgment and insight: Poor, improving moderately Assessment Schizoaffective disorder Plan: -Patient continues to meet criteria for inpatient psychiatric admission for symptom stabilization and safety. Patient has not signed adult voluntary form and medication consent and was placed in patient's chart. -Medications: increase Abilify 5 mg daily for psychosis/ mood stabilization. Likely need a long acting injection. -When necessary Ativan and Haldol for agitation/aggression. -NRT - not needed as patient does not smoke. -SW on board for discharge planning. Encouraged the patient to participate in milieu. Patient deferred with the civil litigation attorney. Patient is homeless.
[2020-11-09] MEDS: ACETAMINOPHEN TAB 325 MG TAB PO PRN (12:16)
[2020-11-09] MEDS: LORazepam 1 MG TAB PO PRN ×2 (15:18→21:21)
[2020-11-10] MEDS: SYMBICORT 80-4.5 MCG INHALER (MHU) INHALATION SCH ×2 (08:42→21:00)
[2020-11-10] MEDS: LORazepam 1 MG TAB PO PRN ×2 (08:44→21:22)
[2020-11-10] MEDS ORDERED: ARIPiprazole 5 MG TAB PO SCH (09:00)
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
[2020-11-10 20:15] LABS: Appearance,Urine Clear (Clear); Bacteria,Urine Rare /hpf; Bilirubin,Urine Negative (Negative); Blood,Urine Small (Negative); Color,Urine Colorless; Glucose,Urine (UA) Negative (Negative); Ketones,Urine Negative (Negative); Leukocyte Esterase,Urine Negative (Negative); Nitrite,Urine Negative (Negative); PH, Urine 5.5 (5.0-8.0); Protein,Urine Negative (Negative); RBC,Urine <1 /hpf (0-5); Specific Gravity,Urine 1.003 (1.001-1.035); Squamous Epithelial Cell,Urine <1 /hpf (0-4); Urobilinogen,Urine <2.0 mg/dL (<2.0)
[2020-11-10] MEDS: ACETAMINOPHEN TAB 325 MG TAB PO PRN (21:22)
[2020-11-10] MEDS: haloperidoL 5 MG TAB PO PRN (21:22)
[2020-11-10] MEDS ORDERED: OLANZapine 5 MG TAB PO ONE (22:28)
[2020-11-10] MEDS ORDERED: OLANZapine 10 MG VIAL IM ONE (22:31)
[2020-11-11] MEDS ORDERED: ZIPRASIDONE 20 MG VIAL IM STA (02:05)
[2020-11-11] MEDS ORDERED: BENZTROPINE 2 MG/2 ML AMP IM ONE (02:06)
[2020-11-11] MEDS: SYMBICORT 80-4.5 MCG INHALER (MHU) INHALATION SCH ×2 (08:21→21:33)
[2020-11-11] MEDS: LORazepam 1 MG TAB PO PRN (08:23)
[2020-11-11] MEDS ORDERED: ARIPiprazole 5 MG TAB PO SCH (09:00)
[2020-11-11] MEDS ORDERED: ARIPiprazole 10 MG TAB PO SCH (09:00)
--- NOTE | 2020-11-11 09:34 | P.PN ---
Progress Note - Text Progress Note Date: 11/11/20 Interval History: Patient was seen by teletypewriter installer wandering the hallways. The nurse's desk and was a greeable to speak to teletypewriter installer in the office today. Patient appeared to have a constricted affect once again and continues to speak in a monotone concrete voice. Patient was asked about her night last night and she states "I don't know what happened". However with further questioning patient states that she was running around the unit naked and admitted to being agitated and intrusive. She claims that she got several injections and states that "the Zyprexa makes me do that stuff". She listed off several medications that have given her "ALLERGIC reactions" however described several side effects from the medications instead. She appears to have mild improvement in her frustration tolerance. She was monotone and concrete. She continues to be focused on receiving an injection and being discharged. She states that she was on Abilify before and "stayed out of the hospital for 4 years" however now claims that the Abilify is not helping her. She received several when necessary medications last night for agitation according to nursing report. She was appearing to be fairly bizarre and had a flat affect. She continues to have very poor insight and judgment. She had improving hygiene and grooming. She denied any depression or anxiety today. She claims she slept very poorly last night. At this time patient denies any suicidal or homical ideations, intent or plan. Patient denies any auditory, visual hallucinations. Mental Status Exam: General Appearance: Patient appears to be overweight, wearing a dress, stated age is alert, directable and has a flat affect. Behavior: Patient is calmly seated without any agitated behavior. Guarded Speech: Patient's speech is fluent and nonpressured. Monotone Mood/Affect: Mood is "fine", affect is incongruent and flat Suicidality/Homicidality: Patient denies having any suicidal or homicidal ideation intent or plan. Perceptions: Patient denies any visual hallucinations and denies any auditory hallucinations Though content/process: More logical today. Poverty of content. Memory and concentration: AOX3, grossly intact for the purposes of this session Judgment and insight: Chronically Poor Assessment Schizoaffective disorder Plan: -Patient continues to meet criteria for inpatient psychiatric admission for symptom stabilization and safety. Patient has not signed adult voluntary form and medication consent and was placed in patient's chart. -Medications: Discontinued Abilify and replaced with Prolixin 2 mg twice a day for psychosis/mood stabilization. We'll also start lithium 300 mg twice a day for mood stabilization. -When necessary Ativan and Haldol for agitation/aggression. -NRT - not needed as patient does not smoke. -SW on board for discharge planning. Encouraged the patient to participate in milieu. Patient deferred with the assistant county attorney. Patient is homeless.
[2020-11-11] MEDS: LITHIUM CARBONATE 300 MG CAP PO SCH ×2 (09:49→21:32)
[2020-11-11] MEDS: MELATONIN 3 MG TABLET PO SCH (21:32)
[2020-11-12] MEDS: LITHIUM CARBONATE 300 MG CAP PO SCH ×2 (08:11→20:31)
[2020-11-12] MEDS: SYMBICORT 80-4.5 MCG INHALER (MHU) INHALATION SCH ×2 (08:11→20:36)
--- NOTE | 2020-11-12 11:42 | P.PN ---
Progress Note - Text Progress Note Date: 11/12/20 Interval History: Patient was seen by short story writer in her room earlier today and patient was in the ba throom and told short story writer to return later on. The second time short story writer came to approach patient in her room patient was standing on her bed looking out the window. She responded to her name and states that "I was just looking outside". She was directable and agreeable to speak to short story writer in the office. She claims that she has been doing "okay" and has been fairly concrete and having poverty of content. She denied any inappropriate touching of other men on the unit. She did not receive any IM prns yesterday however staff did say that patient had a difficult time with sleep last night. Patient is denying any problems with sleep and states that "I want to stay on my medications the way it is". She continues to speak in a monotone voice and has chronically poor insight and judgment. She continues to have a flat affect. She had improving hygiene and grooming. She denied any depression or anxiety today. At this time patient denies any suicidal or homical ideations, intent or plan. Patient denies any auditory, visual hallucinations. She states that she spoke with her parents yesterday and her father will come and visit her over the weekend. Mental Status Exam: General Appearance: Patient appears to be overweight, wearing a dress, stated age is alert, directable and has a flat affect. Behavior: Patient is calmly seated without any agitated behavior. Guarded and a flat affect. Speech: Patient's speech is fluent and nonpressured. Monotone. [place] Mood/Affect: Mood is "ok", affect is incongruent and flat Suicidality/Homicidality: Patient denies having any suicidal or homicidal ideation intent or plan. Perceptions: Patient denies any visual hallucinations and denies any auditory hallucinations Though content/process: More logical today. Poverty of content. [place]. Memory and concentration: AOX3, grossly intact for the purposes of this session Judgment and insight: Chronically Poor, improving mildly Assessment Schizoaffective disorder Plan: -Patient continues to meet criteria for inpatient psychiatric admission for symptom stabilization and safety. Patient has not signed adult voluntary form and medication consent and was placed in patient's chart. -Medications: Increased Prolixin 3 mg twice a day for psychosis/mood stabilization, this can be increased over the weekend if needed. Continue with lithium 300 mg twice a day for mood stabilization, this can also be increased over the weekend if needed. -When necessary Ativan and Haldol for agitation/aggression. -NRT - not needed as patient does not smoke. -SW on board for discharge planning. Encouraged the patient to participate in milieu. Patient deferred with the commercial attorney. Patient is homeless. [facility] looking into penitentiary placement.
[2020-11-12] MEDS: LORazepam 1 MG TAB PO PRN (16:38)
[2020-11-12] MEDS: ACETAMINOPHEN TAB 325 MG TAB PO PRN (16:38)
[2020-11-12] MEDS: MAGNESIUM HYDROXIDE 2,400 MG/10 ML CUP PO PRN (18:25)
[2020-11-12] MEDS: ALBUTEROL HFA INHALER INHALATION PRN (18:26)
[2020-11-12] MEDS: MELATONIN 3 MG TABLET PO SCH (20:31)
[2020-11-12] MEDS: DOXEPIN 10 MG CAP PO SCH (20:31)
[2020-11-13] MEDS: ACETAMINOPHEN TAB 325 MG TAB PO PRN ×2 (05:56→20:31)
[2020-11-13] MEDS: LORazepam 1 MG TAB PO PRN (06:07)
[2020-11-13] MEDS: SYMBICORT 80-4.5 MCG INHALER (MHU) INHALATION SCH ×2 (08:53→21:11)
[2020-11-13] MEDS: ALBUTEROL HFA INHALER INHALATION PRN (08:53)
[2020-11-13] MEDS: LITHIUM CARBONATE 300 MG CAP PO SCH ×2 (08:54→20:31)
[2020-11-13 09:19] VITALS: RESP 20
--- NOTE | 2020-11-13 11:33 | P.PN ---
Progress Note - Text Progress Note Date: 11/13/20 Interval History: Patient was seen standing in the doorway of her room and was not directable but was agreeable to speak with chief writer. This patient was staring blankly and was extremely rigid in her posture. At this time patient denies any suicidal or homical ideations, intent or plan upon questioning. Patient denies any auditory, visual hallucinations and denies any paranoia or delusions upon questioning. Patient is denying any of the problems that brought her to the hospital. Mental Status Exam: General Appearance: Patient appears to be stated age is alert, non-directable, and un-cooperative. Behavior: Patient is calmly standing without any agitated behavior. Speech: Patient's speech is non-fluent and non-pressured. Mood/Affect: Mood is not improving as yet, affect is constricted and flat. Suicidality/Homicidality: Patient denies having any suicidal or homicidal ideation intent or plan. Perceptions: Patient denies any visual hallucinations and denies any auditory hallucinations Though content/process: There is evidence of delusional thought content and positive and negative symptoms of psychosis. Memory and concentration: AOX3, grossly intact for the purposes of this session Judgment and insight: Does not seem to be Improving as yet. Assessment This patient is paranoid and has flattened affect. She was admitted to Hospital with a diagnosis of schizoaffective disorder. She refused to go in her room but also refused to come out of the room and only would talk to me standing in the middle of her doorway. Plan: -Patient continues to meet criteria for inpatient psychiatric admission for symptom stabilization and safety. -Medications: Refused to say if she was taking any medication or is supposed to take any medication. She just has a blank stare on her face. -When necessary Ativan and Haldol for agitation/aggression. -SW on board for discharge planning. Encouraged the patient to participate in milieu.
[2020-11-13] MEDS: MAGNESIUM HYDROXIDE 2,400 MG/10 ML CUP PO PRN (18:34)
[2020-11-13] MEDS: DOXEPIN 10 MG CAP PO SCH (20:31)
[2020-11-13] MEDS: MELATONIN 3 MG TABLET PO SCH (20:31)
[2020-11-14] MEDS: SYMBICORT 80-4.5 MCG INHALER (MHU) INHALATION SCH ×2 (07:56→20:35)
[2020-11-14] MEDS: ALBUTEROL HFA INHALER INHALATION PRN ×2 (07:56→19:20)
[2020-11-14] MEDS: LITHIUM CARBONATE 300 MG CAP PO SCH ×2 (07:58→20:38)
--- NOTE | 2020-11-14 11:48 | P.PN ---
Progress Note - Text Progress Note Date: 11/14/20 Interval History: Patient was seen in her room . She is laying in the bed and does not want to talk about anything. She kept her eyes closed. Her affect is flat.. When asked patient denied any suicidal or homical ideations, intent or plan. Patient denies any side effects from the medications and has been compliant with meds. Mental Status Exam: General Appearance: Patient appears to be stated age and is un-cooperative. Behavior: Patient is calm without any agitated behavior. Speech: Patient's speech is hardly productive.. Mood/Affect: Affect is congruent and constricted and rather flattened. Suicidality/Homicidality: Patient denies having any suicidal or homicidal ideation intent or plan. Perceptions: Patient denies any visual hallucinations and denies any auditory hallucinations Though content/process: There is evidence of delusional thought content. Memory and concentration: AOX3, grossly intact for the purposes of this session Judgment and insight: Improving mildly Assessment This patient continues to show symptoms of psychosis Plan: -Patient continues to meet criteria for inpatient psychiatric admission for symptom stabilization and safety. -Medications: Will continue medications as such -When necessary Ativan and Haldol for agitation/aggression. -SW on board for discharge planning. Encouraged the patient to participate in milieu.
[2020-11-14] MEDS: haloperidoL 5 MG TAB PO PRN (19:22)
[2020-11-14] MEDS: LORazepam 1 MG TAB PO PRN (19:22)
[2020-11-14] MEDS: DOXEPIN 10 MG CAP PO SCH (20:35)
[2020-11-14] MEDS: MELATONIN 3 MG TABLET PO SCH (20:38)
[2020-11-15] MEDS: SYMBICORT 80-4.5 MCG INHALER (MHU) INHALATION SCH ×2 (08:30→21:04)
[2020-11-15] MEDS: LITHIUM CARBONATE 300 MG CAP PO SCH (08:30)
[2020-11-15] MEDS: NICOTINE 14MG/24HR PATCH TRANSDERM SCH ×2 (09:48→09:49)
--- NOTE | 2020-11-15 10:08 | P.PN ---
Progress Note - Text Progress Note Date: 11/15/20 Interval History: Patient was seen by assembly instructions writer wandering the hallways this morning today and was a greeable to speak to assembly instructions writer in the office. She was once again fairly focused on discharge. She continues to display fairly superficial/poor insight and judgment. She claims that she had a "all right weekend". She did not offer any complaints overnight and states that she is sleeping better on the doxepin. She did claim that she "took off my shirt" in the [facility] over the weekend and states that she received a prn injection for it and apparently "went to bed after". She states that she has no idea why she did that and claims "I'm not doing that now". She is fairly concrete and having poverty of content. She continues to speak in a monotone voice. She states that her father did not visit her over the weekend however "he can pick me up whenever". She continues to have a flat affect. She had improving hygiene and grooming. She denied any depression or anxiety today. At this time patient denies any suicidal or homical ideations, intent or plan. Patient denies any auditory, visual hallucinations. Mental Status Exam: General Appearance: Patient appears to be overweight, wearing a dress, stated age is alert, directable and has a flat affect. Behavior: Patient is calmly seated without any agitated behavior. Guarded and a flat affect. Speech: Patient's speech is fluent and nonpressured. Monotone. [place] Mood/Affect: Mood is "fine", affect is congruent and flat Suicidality/Homicidality: Patient denies having any suicidal or homicidal ideation intent or plan. Perceptions: Patient denies any visual hallucinations and denies any auditory hallucinations Though content/process: More logical today. Poverty of content. [place]. Memory and concentration: AOX3, grossly intact for the purposes of this session Judgment and insight: Chronically Poor, superficial, improving mildly Assessment Schizoaffective disorder Plan: -Patient continues to meet criteria for inpatient psychiatric admission for symptom stabilization and safety. Patient has not signed adult voluntary form and medication consent and was placed in patient's chart. -Medications: Increased Prolixin 4 mg twice a day for psychosis/mood stabilization. Increased lithium 450 mg twice a day for mood stabilization. We'll likely transition patient onto Prolixin D upon discharge. -When necessary Ativan and Haldol for agitation/aggression. -NRT - not needed as patient does not smoke. -SW on board for discharge planning. Encouraged the patient to participate in milieu. Patient deferred with the courtesy driver. Patient is homeless. [facility] looking into alf placement.
[2020-11-15 15:14] VITALS: BMI 36.0
[2020-11-15 15:16] VITALS: TEMP 98
[2020-11-15] MEDS: ACETAMINOPHEN TAB 325 MG TAB PO PRN ×2 (16:43→21:23)
[2020-11-15] MEDS: DOXEPIN 10 MG CAP PO SCH (21:04)
[2020-11-15] MEDS: LITHIUM CARBONATE 150 MG CAP PO SCH (21:04)
[2020-11-15] MEDS: MELATONIN 3 MG TABLET PO SCH (21:05)
[2020-11-15 22:02] LABS: HCT 36.2 % (34.0-46.0); HGB 12.6 gm/dL (11.4-16.0); MCH 30.4 pg (25.0-35.0); MCHC 34.9 g/dL (31.0-37.0); MCV 87.2 fL (80.0-100.0); Mean Platelet Volume 9.3; Platelet Count 181 k/uL (150-450); RBC 4.15 m/uL (3.80-5.40); RDW 12.8 % (11.5-15.5); WBC 10.5 k/uL (3.8-10.6)
[2020-11-15 22:20] LABS: ALT 24 U/L (4-34); African American GFR (CKD) >90 (>60 ml/min/1.73 sqM); Anion Gap 8 mmol/L; Blood Urea Nitrogen 12 mg/dL (7-17); Calcium 9.5 mg/dL (8.4-10.2); Carbon Dioxide 25 mmol/L (22-30); Chloride 107 mmol/L (98-107); Glucose 74 mg/dL (74-99); Non-African American GFR(CKD) >90 (>60 ml/min/1.73 sqM); Sodium 140 mmol/L (137-145)
[2020-11-16] MEDS: NICOTINE 14MG/24HR PATCH TRANSDERM SCH (08:02)
[2020-11-16] MEDS: LITHIUM CARBONATE 150 MG CAP PO SCH ×2 (08:02→20:30)
[2020-11-16] MEDS: SYMBICORT 80-4.5 MCG INHALER (MHU) INHALATION SCH ×2 (08:03→20:43)
[2020-11-16 08:08] VITALS: BP 113/60; PULSE 98
[2020-11-16] MEDS ORDERED: EMTRICITABINE/TENOFOVIR (TDF) 1 EACH, RALTEGRAVIR POTASSIUM 400 MG PO ONE ×2 (09:00)
[2020-11-16] MEDS ORDERED: metroNIDAZOLE 500 MG TAB PO ONE (09:00)
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
[2020-11-16] MEDS ORDERED: EMTRICITABINE/TENOFOVIR (TDF) 1 EACH, RALTEGRAVIR POTASSIUM 400 MG PO SCH ×2 (10:15)
[2020-11-16 10:38] LABS: HIV 2 AB Non-Reactive (Non-Reactive); HIV AB P24 Non-Reactive (Non-Reactive); HIV P24 AG Non-Reactive (Non-Reactive)
[2020-11-16] MEDS: EMTRICITABINE/TENOFOVIR 200MG/300MG PO SCH ×3 (10:58→11:03)
[2020-11-16] MEDS: AZITHROMYCIN 500 MG TAB PO STA ×3 (10:58→11:03)
[2020-11-16] MEDS: RALTEGRAVIR POTASSIUM 400 MG TABLET PO SCH ×4 (10:58→20:31)
[2020-11-16] MEDS: ACETAMINOPHEN TAB 325 MG TAB PO PRN ×2 (11:04→17:48)
[2020-11-16] MEDS ORDERED: fluPHENAZine DECANOATE 25 MG/ML 5ML MDV IM ONE (12:00)
[2020-11-16] MEDS: MELATONIN 3 MG TABLET PO SCH ×2 (20:43→22:28)
[2020-11-16] MEDS: DOXEPIN 10 MG CAP PO SCH ×2 (20:43→22:28)
[2020-11-17] MEDS: LITHIUM CARBONATE 150 MG CAP PO SCH (08:37)
[2020-11-17] MEDS: NICOTINE 14MG/24HR PATCH TRANSDERM SCH ×2 (08:37→08:42)
[2020-11-17] MEDS: EMTRICITABINE/TENOFOVIR 200MG/300MG PO SCH ×2 (08:38→12:45)
[2020-11-17] MEDS: SYMBICORT 80-4.5 MCG INHALER (MHU) INHALATION SCH (08:38)
[2020-11-17] MEDS: RALTEGRAVIR POTASSIUM 400 MG TABLET PO SCH ×2 (08:39→12:45)
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
== END 2020-11-17 14:03 | disposition home or self-care (01) | DRG 885 ==
LOC: EC 21:46 → 3MHU 23:40
PROVIDERS: ADMIT Psychiatry & Neurology Psychiatry; ATTEND Psychiatry & Neurology Psychiatry
DX: F25.9 Schizoaffective disorder, unspecified (principal); F17.200 Nicotine dependence, unspecified, uncomplicated; F31.9 Bipolar disorder, unspecified; F41.0 Panic disorder [episodic paroxysmal anxiety]; F43.10 Post-traumatic stress disorder, unspecified; J45.909 Unspecified asthma, uncomplicated; Z79.1 Long term (current) use of non-steroidal anti-inflammatories (NSAID); Z81.8 Family history of other mental and behavioral disorders; Z87.442 Personal history of urinary calculi; Z91.14 Patient's other noncompliance with medication regimen; Z20.822 Contact with and (suspected) exposure to COVID-19
CPT/HCPCS: 80048; 80053; 80178; 80306; 81001; 81025; 82075; 84443; 84460; 85025; 85027; 87390; 87635; 99285

== ENCOUNTER 2020-11-18 22:40 | Emergency (ER) | payer OTHER ==
[2020-11-18 22:58] VITALS: RESP 16
[2020-11-19 00:36] LABS: Appearance,Urine Clear (Clear); Bacteria,Urine Rare /hpf; Bilirubin,Urine Negative (Negative); Blood,Urine Negative (Negative); Color,Urine Yellow; Glucose,Urine (UA) Negative (Negative); Ketones,Urine Negative (Negative); Leukocyte Esterase,Urine Small (Negative); Mucus,Urine Rare /hpf; Nitrite,Urine Negative (Negative); Protein,Urine Negative (Negative); RBC,Urine 1 /hpf (0-5); Specific Gravity,Urine 1.022 (1.001-1.035); Squamous Epithelial Cell,Urine <1 /hpf (0-4); Urobilinogen,Urine <2.0 mg/dL (<2.0); WBC,Urine 11 /hpf (0-5)
[2020-11-19] MEDS ORDERED: AZITHROMYCIN 500 MG TAB PO STA (00:41)
[2020-11-19] MEDS ORDERED: cefTRIAXone 1,000 MG VIAL (IM USE) IM STA (00:41)
--- NOTE | 2020-11-19 00:42 | ED ---
Female Urogenital HPI - General Chief complaint: Urogenital Stated complaint: Possible STD Time Seen by Provider: 11/18/20 23:35 Source: patient Mode of arrival: ambulatory Limitations: no limitations - History of Present Illness Initial comments: 25 year-old female presents to the emergency department requesting treatment for sexually transmitted infections. States that she had unprotected sex yesterday and today. She previously had relations with this person and contracted chlamydia from him and would like treatment today. She reports vaginal disco mfort and itching. Symptoms started today. Denies any vaginal discharge. Denies hematuria, dysuria, urinary urgency, or urinary frequency. There has any abdominal pain. Denies fever or chills. States there is a chance she could be . Patient denies any recent rash, cough, shortness of breath, chest pain, nausea, vomiting, diarrhea, constipation, numbness, tingling, dizziness, weakness, headache, visual changes, or any other complaints. - Related Data Previous Rx's Medication Instructions Recorded Acetaminophen Tab [Tylenol] 650 mg PO Q4HR PRN tab 11/17/20 Albuterol Inhaler [Ventolin Hfa 2 puff INHALATION RT-Q6H PRN #1 11/17/20 Inhaler] puff Doxepin [SINEquan] 10 mg PO HS 30 Days cap 11/17/20 Emtricitabine/Tenofovir (Tdf) 1 each PO DAILY 28 Days tablet 11/17/20 [Truvada 200 mg-300 mg Tablet] Fluticasone/Salmeterol 1 puff INHALATION RT-BID #1 11/17/20 [Fluticasone-Salmeterol 113-14] inhalation [place] Carbonate ER [Lithobid] 450 mg PO BID 30 Days tablet.er 11/17/20 Melatonin 6 mg PO HS 30 Days tablet 11/17/20 Nicotine 14Mg/24Hr Patch [Habitrol] 1 patch TRANSDERM DAILY 14 Days 11/17/20 patch Raltegravir Potassium [Isentress] 400 mg PO BID 28 Days tablet 11/17/20 fluPHENAZine [Prolixin] 4 mg PO BID 4 Days tab 11/17/20 fluPHENAZine decanoate [Prolixin 37.5 mg IM [id number] #1 vial 11/17/20 Decanoate] Allergies Allergy/AdvReac Type Severity Reaction Status Date / Time Penicillins Allergy Severe Anaphylaxis Verified 11/18/20 22:56 Sulfa (Sulfonamide Allergy Severe Anaphylaxis Verified 11/18/20 22:56 Antibiotics) diphenhydramine HCl Allergy Nausea Verified 11/18/20 22:56 [From Benadryl] Review of Systems ROS Statement: Those systems with pertinent positive or pertinent negative responses have been documented in the HPI. ROS Other: All systems not noted in ROS Statement are negative. 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 Past Psychological History: Anxiety, Bipolar, Depression, Panic Disorder, PTSD, Schizoaffective Disorder Smoking Status: Former smoker Past Alcohol Use History: None Reported Past Drug Use History: Marijuana - Past Family History Mother Family Medical History: No Reported History Father Family Medical History: No Reported History Additional Family Medical History / Comment(s): bipolar, sever seasonal allergies Brother(s) Family Medical History: No Reported History Sister(s) Family Medical History: No Reported History General Exam Limitations: no limitations General appearance: alert, in no apparent distress, other (Physical well- developed, well-nourished adult female patient in no acute distress. Vital signs upon presentation are temperature 98.2F, pulse 82, respirations 16, blood pressure 95/63, pulse ox 97% on room air.) Eye exam: Present: normal appearance ENT exam: Present: normal exam, normal oropharynx, mucous membranes moist Respiratory exam: Present: normal lung sounds bilaterally. Absent: respiratory distress, wheezes, rales, rhonchi, stridor Cardiovascular Exam: Present: regular rate, normal rhythm, normal heart sounds. Absent: systolic murmur, diastolic murmur, rubs, gallop, clicks GI/Abdominal exam: Present: soft, normal bowel sounds. Absent: distended, tenderness, guarding, rebound, rigid Neurological exam: Present: alert, oriented X3, CN II-XII intact Psychiatric exam: Present: normal affect, normal mood Skin exam: Present: warm, dry, intact, normal color. Absent: rash Course Vital Signs 11/18/20 11/19/20 22:56 00:51 Temperature 98.2 F 98 F Pulse Rate 82 78 Respiratory 16 16 Rate Blood Pressure 95/63 101/71 O2 Sat by Pulse 97 96 Oximetry Medical Decision Making - Medical Decision Making 25-year-old female patient presented to the emergency Department requesting treatment for sexually transmitted infections. She is having some vaginal discomfort and itching. She states she had unprotected sex yesterday and today. No vaginal discharge. Physical examination is unremarkable. Abdomen soft and nontender. She is afebrile. We did send cultures. Trichomonas is negative. Urinalysis showed 11 white blood cells, we'll send culture. She is treated today with azithromycin and Rocephin injection. Azithromycin was chosen over doxycycline due to concern for noncompliance with complete dosing of doxycycline. She is instructed to inform partners if she is positive and to abstain for intercourse for two weeks. She is instructed to follow-up with her primary care physician and [facility] for recheck. Return parameters were discussed in detail. She verbalizes understanding and agrees with this plan. My attending is Dr. Bella. - Lab Data Lab Results 11/19/20 11/19/20 11/19/20 Range/Units 00:13 00:13 00:13 Urine Color Yellow Urine Appearance Clear (Clear) Urine pH 5.0 (5.0-8.0) Ur Specific [place] 1.022 (1.001-1.035) Urine Protein Negative (Negative) Urine Glucose (UA) Negative (Negative) Urine Ketones Negative (Negative) Urine Blood Negative (Negative) Urine Nitrite Negative (Negative) Urine Bilirubin Negative (Negative) Urine Urobilinogen <2.0 (<2.0) mg/dL Ur Leukocyte Esterase Small H (Negative) Urine RBC 1 (0-5) /hpf Urine WBC 11 H (0-5) /hpf Ur Squamous Epith Cells <1 (0-4) /hpf Urine Bacteria Rare H (None) /hpf Urine Mucus Rare H (None) /hpf Urine HCG, Qual Not Detected (Not Detectd) Trichomonas Ag (Rapid) Negative (Negative) Disposition Clinical Impression: Concern about STD in female without diagnosis, Vaginal discomfort Disposition: HOME SELF-CARE Condition: Good Instructions (If sedation given, give patient instructions): Sexually Transmitted Diseases (ED) Additional Instructions: Follow-up with your primary care physician for recheck in 1-2 days. Return immediately for any new, worsening, or concerning symptoms. Is patient prescribed a controlled substance at d/c from ED?: No Referrals: Shanell Pardo MD [Primary Care Provider] - 1-2 days Time of Disposition: 00:42
[2020-11-19 00:55] VITALS: BP 101/71; PULSE 78; TEMP 98
[2020-11-21 13:03] LABS: C. trachomatis,PCR Negative (Neg,Equiv); Chlamydia trachomatis Source Vagina; N. gonorrhoeae,PCR Negative (Neg,Equiv); Neisseria Source Vagina
== END 2020-11-19 00:51 | disposition home or self-care (01) ==
LOC: EC 22:40
DX: Z20.2 Contact with and (suspected) exposure to infections with a predominantly sexual mode of transmission (principal); J45.909 Unspecified asthma, uncomplicated; K21.9 Gastro-esophageal reflux disease without esophagitis; Z87.891 Personal history of nicotine dependence
CPT/HCPCS: 81001; 81025; 87808; 87491; 87591; 87070; 87086; 99283; 96372; J0696

== ENCOUNTER 2020-11-20 09:21 | Emergency (ER) | payer OTHER ==
[2020-11-20 09:24] VITALS: TEMP 98.3
[2020-11-20] MEDS ORDERED: LORATADINE 10 MG TAB PO STA (09:53)
[2020-11-20] MEDS ORDERED: methylPREDNISolone SOD SUCCI 125 MG/2 ML VIAL IM ONE (09:54)
--- NOTE | 2020-11-20 10:35 | ED ---
General Adult HPI - General Chief complaint: Allergic Reaction Stated complaint: Allergic Reaction Source: patient Mode of arrival: ambulatory Limitations: no limitations - History of Present Illness Initial comments: Patient is a 25-year-old female presenting to the emergency department with concerns of a possible ALLERGIC reaction. Patient states she has been taking lithium for the past week and feels like she becomes very itchy every time she takes it. She also states she feels like she is a little short of breath every morning when she takes that as well. She is in no acute distress at this time. She has no rashes, no fevers or chills. She states she has not called her counselor regarding this. She denies any new medications however she was here yesterday and was treated for possible gonorrhea and Chlamydia. She denies any chest pain, no shortness of breath at this time, no nausea or vomiting. Upon arrival to the ER her vitals are stable. Patient has no further complaints at this time. - Related Data Previous Rx's Medication Instructions Recorded Acetaminophen Tab [Tylenol] 650 mg PO Q4HR PRN tab 11/17/20 Albuterol Inhaler [Ventolin Hfa 2 puff INHALATION RT-Q6H PRN #1 11/17/20 Inhaler] puff Doxepin [SINEquan] 10 mg PO HS 30 Days cap 11/17/20 Emtricitabine/Tenofovir (Tdf) 1 each PO DAILY 28 Days tablet 11/17/20 [Truvada 200 mg-300 mg Tablet] Fluticasone/Salmeterol 1 puff INHALATION RT-BID #1 11/17/20 [Fluticasone-Salmeterol 113-14] inhalation [place] Carbonate ER [Lithobid] 450 mg PO BID 30 Days tablet.er 11/17/20 Melatonin 6 mg PO HS 30 Days tablet 11/17/20 Nicotine 14Mg/24Hr Patch [Habitrol] 1 patch TRANSDERM DAILY 14 Days 11/17/20 patch Raltegravir Potassium [Isentress] 400 mg PO BID 28 Days tablet 11/17/20 fluPHENAZine [Prolixin] 4 mg PO BID 4 Days tab 11/17/20 fluPHENAZine decanoate [Prolixin 37.5 mg IM [id number] #1 vial 11/17/20 Decanoate] Cetirizine HCl 10 mg PO DAILY #14 tablet 11/20/20 predniSONE 10 mg PO DAILY 3 Days #3 tab 11/20/20 Allergies Allergy/AdvReac Type Severity Reaction Status Date / Time Penicillins Allergy Severe Anaphylaxis Verified 11/18/20 22:56 Sulfa (Sulfonamide Allergy Severe Anaphylaxis Verified 11/18/20 22:56 Antibiotics) diphenhydramine HCl Allergy Nausea Verified 11/18/20 22:56 [From Benadryl] Review of Systems ROS Statement: Those systems with pertinent positive or pertinent negative responses have been documented in the HPI. ROS Other: All systems not noted in ROS Statement are negative. 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 Past Psychological History: Anxiety, Bipolar, Depression, Panic Disorder, PTSD, Schizoaffective Disorder Smoking Status: Former smoker Past Alcohol Use History: None Reported Past Drug Use History: Marijuana - Past Family History Mother Family Medical History: No Reported History Father Family Medical History: No Reported History Additional Family Medical History / Comment(s): bipolar, sever seasonal allergies Brother(s) Family Medical History: No Reported History Sister(s) Family Medical History: No Reported History General Exam - General Exam Comments Initial Comments: GENERAL: Patient is well-developed and well-nourished. Patient is nontoxic and in no acute distress. HEAD: Atraumatic, normocephalic. EYES: Pupils equal round and reactive to light, extraocular movements intact, sclera anicteric, conjunctiva are normal. Eyelids were unremarkable. ENT: TMs normal, nares patent, oropharynx clear without exudates. Moist mucous membranes. NECK: Normal range of motion, supple without lymphadenopathy or JVD. LUNGS: Unlabored respirations. Breath sounds clear to auscultation bilaterally and equal. No wheezes rales or rhonchi. HEART: Regular rate and rhythm without murmurs, rubs or gallops. ABDOMEN: Soft, nontender, normoactive bowel sounds. No guarding, no rebound. No masses appreciated. : Deferred MUSCULOSKELETAL: Normal extremities with adequate strength and normal range of motion, no pitting or edema. No clubbing or cyanosis. NEUROLOGICAL: Patient is alert and oriented x 3. Motor and sensory are also intact. Cranial nerves II through XII grossly intact. Symmetrical smile. Normal speech, normal gait. PSYCH: Normal mood, normal affect. SKIN: Warm, Dry, normal turgor, no rashes or lesions noted. Limitations: no limitations Course Vital Signs 11/20/20 09:22 Temperature 98.3 F Pulse Rate 94 Respiratory 16 Rate Blood Pressure 121/87 O2 Sat by Pulse 99 Oximetry Medical Decision Making - Medical Decision Making Patient is a 25-year-old female here with concerns with possible reaction to her lithium medication. She's been on this for 1 week. Her vital signs are stable. Her exam is unremarkable, no rashes, no nausea or vomiting. Patient just complaining of itchiness all over. I did give her a shot of steroids, tablet of cetirizine. She reports improvement in her symptoms. I discussed with patient this could be a side effect of it and not a to ALLERGY. Recommended following up with her counselor. She is in agreement with this plan of care and she is stable for discharge. Case discussed with Dr. Inman. Disposition Clinical Impression: Pruritus Disposition: HOME SELF-CARE Condition: Stable Instructions (If sedation given, give patient instructions): Itchy Skin (ED) Additional Instructions: Please return to the Emergency Department if symptoms worsen or any other concerns. May take additional dose of steroids tomorrow if itchiness continues. Also recommend taking cetirizine daily. Follow-up with your counselor. Prescriptions: Cetirizine HCl 10 mg PO DAILY #14 tablet predniSONE 10 mg PO DAILY 3 Days #3 tab Is patient prescribed a controlled substance at d/c from ED?: No Referrals: Shanell Pardo MD [Primary Care Provider] - 1-2 days Time of Disposition: 10:35
[2020-11-20 11:22] VITALS: BP 121/90; PULSE 80; RESP 18
== END 2020-11-20 11:00 | disposition home or self-care (01) ==
LOC: EC 09:21
DX: L29.9 Pruritus, unspecified (principal); J45.909 Unspecified asthma, uncomplicated; K21.9 Gastro-esophageal reflux disease without esophagitis; Z87.442 Personal history of urinary calculi; Z87.891 Personal history of nicotine dependence; F25.9 Schizoaffective disorder, unspecified; F12.90 Cannabis use, unspecified, uncomplicated; F31.9 Bipolar disorder, unspecified; F41.9 Anxiety disorder, unspecified
CPT/HCPCS: 96372; 99282; J2930

== ENCOUNTER 2020-11-26 02:24 | Emergency (ER) | payer OTHER ==
[2020-11-26 02:32] VITALS: TEMP 98.3
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
[2020-11-26] MEDS ORDERED: AZITHROMYCIN 500 MG TAB PO STA (02:45)
[2020-11-26] MEDS ORDERED: metroNIDAZOLE 500 MG TAB PO STA (02:45)
[2020-11-26] MEDS ORDERED: cefTRIAXone 250 MG VIAL IM STA (02:46)
[2020-11-26 03:05] LABS: Amorphous Sediment,Urine Rare /hpf; Appearance,Urine Clear (Clear); Bacteria,Urine Rare /hpf; Bilirubin,Urine Negative (Negative); Blood,Urine Negative (Negative); Color,Urine Yellow; Glucose,Urine (UA) Negative (Negative); Ketones,Urine Trace (Negative); Leukocyte Esterase,Urine Moderate (Negative); Mucus,Urine Rare /hpf; Nitrite,Urine Negative (Negative); Protein,Urine Trace (Negative); RBC,Urine 6 /hpf (0-5); Specific Gravity,Urine 1.026 (1.001-1.035); Squamous Epithelial Cell,Urine <1 /hpf (0-4); WBC,Urine 14 /hpf (0-5)
[2020-11-26 04:30] VITALS: BP 108/72; PULSE 76; RESP 18
[2020-11-29 12:33] LABS: C. trachomatis,PCR Negative (Neg,Equiv); Chlamydia trachomatis Source Urine; N. gonorrhoeae,PCR Negative (Neg,Equiv); Neisseria Source Urine
== END 2020-11-26 04:30 | disposition home or self-care (01) ==
LOC: EC 02:24
DX: T76.21XA Adult sexual abuse, suspected, initial encounter (principal); Z71.1 Person with feared health complaint in whom no diagnosis is made; J45.909 Unspecified asthma, uncomplicated; K21.9 Gastro-esophageal reflux disease without esophagitis; G43.909 Migraine, unspecified, not intractable, without status migrainosus; F41.9 Anxiety disorder, unspecified; F32.9 Major depressive disorder, single episode, unspecified; F25.9 Schizoaffective disorder, unspecified; F12.90 Cannabis use, unspecified, uncomplicated; Z87.891 Personal history of nicotine dependence
CPT/HCPCS: 81001; 81025; 87491; 87591; 87086; 87077; 87186; 99284; 96372; J0696

== ENCOUNTER 2020-11-29 14:29 | Emergency (ER) | payer OTHER ==
[2020-11-29 14:38] VITALS: BP 106/69; PULSE 79; RESP 18; TEMP 97.9
--- NOTE | 2020-11-29 15:52 | ED ---
Abdominal Pain HPI - General Chief Complaint: Abdominal Pain Stated Complaint: Somach pain Source: patient Mode of arrival: ambulatory Limitations: no limitations - History of Present Illness Initial Comments: 25-year-old female presents emergency Department with reported right upper quadrant abdominal pain and bilateral pelvic pain. States the pain was sudden onset earlier today while she was at work. Denies any provocative factors. Patient's concern for and she has not had a menstrual cycle since May. She denies any abnormal vaginal bleeding or discharge. No concerns for sexual transmitted infections. Denies urinary complaints to include dysuria, hematuria or difficulty voiding. No diarrhea, constipation, melenic stool hematochezia. No chest pain or shortness of breath. No alleviating, precipitating or modifying factors - Related Data Previous Rx's Medication Instructions Recorded Acetaminophen Tab [Tylenol] 650 mg PO Q4HR PRN tab 11/17/20 Albuterol Inhaler [Ventolin Hfa 2 puff INHALATION RT-Q6H PRN #1 11/17/20 Inhaler] puff Doxepin [SINEquan] 10 mg PO HS 30 Days cap 11/17/20 Emtricitabine/Tenofovir (Tdf) 1 each PO DAILY 28 Days tablet 11/17/20 [Truvada 200 mg-300 mg Tablet] Fluticasone/Salmeterol 1 puff INHALATION RT-BID #1 11/17/20 [Fluticasone-Salmeterol 113-14] inhalation [place] Carbonate ER [Lithobid] 450 mg PO BID 30 Days tablet.er 11/17/20 Melatonin 6 mg PO HS 30 Days tablet 11/17/20 Nicotine 14Mg/24Hr Patch [Habitrol] 1 patch TRANSDERM DAILY 14 Days 11/17/20 patch Raltegravir Potassium [Isentress] 400 mg PO BID 28 Days tablet 11/17/20 fluPHENAZine [Prolixin] 4 mg PO BID 4 Days tab 11/17/20 fluPHENAZine decanoate [Prolixin 37.5 mg IM [id number] #1 vial 11/17/20 Decanoate] Cetirizine HCl 10 mg PO DAILY #14 tablet 11/20/20 predniSONE 10 mg PO DAILY 3 Days #3 tab 11/20/20 Allergies Allergy/AdvReac Type Severity Reaction Status Date / Time Penicillins Allergy Severe Anaphylaxis Verified 11/29/20 14:35 Sulfa (Sulfonamide Allergy Severe Anaphylaxis Verified 11/29/20 14:35 Antibiotics) diphenhydramine HCl Allergy Nausea Verified 11/29/20 14:35 [From Benadryl] lithium Allergy Unknown Verified 11/29/20 14:35 Review of Systems ROS Statement: Those systems with pertinent positive or pertinent negative responses have been documented in the HPI. ROS Other: All systems not noted in ROS Statement are negative. 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 Past Psychological History: Anxiety, Bipolar, Depression, Panic Disorder, PTSD, Schizoaffective Disorder Smoking Status: Former smoker Past Alcohol Use History: None Reported Past Drug Use History: Marijuana - Past Family History Mother Family Medical History: No Reported History Father Family Medical History: No Reported History Additional Family Medical History / Comment(s): bipolar, sever seasonal allergies Brother(s) Family Medical History: No Reported History Sister(s) Family Medical History: No Reported History General Exam Limitations: no limitations Course Vital Signs 11/29/20 14:36 Temperature 97.9 F Pulse Rate 79 Respiratory 18 Rate Blood Pressure 106/69 O2 Sat by Pulse 99 Oximetry Medical Decision Making - Medical Decision Making Upon arrival patient is placed in room 12. There are history and physical exam was performed. I did recommend laboratory studies and a UA. Patient does refuse both. Requesting ultrasound only. Ultrasound is performed which demonstrates no gallstones or dilated ducts in the right upper quadrant. Transvaginal demonstrates normal uterus with no adnexal mass or evidence of ovarian torsion. Results are discussed the patient. She is requesting work no. Inform the patient that laboratory studies and urinalysis are recommended. Patient does agree. HCG less than 2.4. Urinalysis clear of infection. Patient will be discharged home at this time. Requesting work note. She is instructed to follow up care doctor in 2-4 days. Return for any new or worsening symptoms per patient was discharged home in stable condition - Lab Data Result diagrams: 11/29/20 17:22 11/29/20 17:22 Lab Results 11/29/20 11/29/20 11/29/20 Range/Units 17:22 17:22 17:22 WBC 9.2 (3.8-10.6) k/uL RBC 4.37 (3.80-5.40) m/uL Hgb 13.2 (11.4-16.0) gm/dL Hct 38.6 (34.0-46.0) % MCV 88.4 (80.0-100.0) fL MCH 30.2 (25.0-35.0) pg MCHC 34.2 (31.0-37.0) g/dL RDW 13.2 (11.5-15.5) % Plt Count 250 (150-450) k/uL MPV 8.4 Neutrophils % 59 % Lymphocytes % 31 % Monocytes % 5 % Eosinophils % 3 % Basophils % 0 % Neutrophils # 5.5 (1.3-7.7) k/uL Lymphocytes # 2.9 (1.0-4.8) k/uL Monocytes # 0.4 (0-1.0) k/uL Eosinophils # 0.3 (0-0.7) k/uL Basophils # 0.0 (0-0.2) k/uL Sodium 139 (137-145) mmol/L Potassium 4.0 (3.5-5.1) mmol/L Chloride 107 (98-107) mmol/L Carbon Dioxide 25 (22-30) mmol/L Anion Gap 7 mmol/L BUN 13 (7-17) mg/dL Creatinine 0.71 (0.52-1.04) mg/dL Est GFR (CKD-EPI)AfAm >90 (>60 ml/min/1.73 sqM) Est GFR (CKD-EPI)NonAf >90 (>60 ml/min/1.73 sqM) Glucose 83 (74-99) mg/dL Plasma Lactic Acid Dinh (0.7-2.0) mmol/L Calcium 9.0 (8.4-10.2) mg/dL Total Bilirubin 0.3 (0.2-1.3) mg/dL AST 33 (14-36) U/L ALT 34 (4-34) U/L Alkaline Phosphatase 82 (38-126) U/L Total Protein 6.5 (6.3-8.2) g/dL Albumin 3.9 (3.5-5.0) g/dL Lipase 58 (23-300) U/L HCG, Quant <2.4 mIU/mL Urine Color Light Yellow Urine Appearance Clear (Clear) Urine pH 7.0 (5.0-8.0) Ur Specific [place] 1.013 (1.001-1.035) Urine Protein Negative (Negative) Urine Glucose (UA) Negative (Negative) Urine Ketones 1+ H (Negative) Urine Blood Negative (Negative) Urine Nitrite Negative (Negative) Urine Bilirubin Negative (Negative) Urine Urobilinogen <2.0 (<2.0) mg/dL Ur Leukocyte Esterase Negative (Negative) 11/29/20 Range/Units 17:22 WBC (3.8-10.6) k/uL RBC (3.80-5.40) m/uL Hgb (11.4-16.0) gm/dL Hct (34.0-46.0) % MCV (80.0-100.0) fL MCH (25.0-35.0) pg MCHC (31.0-37.0) g/dL RDW (11.5-15.5) % Plt Count (150-450) k/uL MPV Neutrophils % % Lymphocytes % % Monocytes % % Eosinophils % % Basophils % % Neutrophils # (1.3-7.7) k/uL Lymphocytes # (1.0-4.8) k/uL Monocytes # (0-1.0) k/uL Eosinophils # (0-0.7) k/uL Basophils # (0-0.2) k/uL Sodium (137-145) mmol/L Potassium (3.5-5.1) mmol/L Chloride (98-107) mmol/L Carbon Dioxide (22-30) mmol/L Anion Gap mmol/L BUN (7-17) mg/dL Creatinine (0.52-1.04) mg/dL Est GFR (CKD-EPI)AfAm (>60 ml/min/1.73 sqM) Est GFR (CKD-EPI)NonAf (>60 ml/min/1.73 sqM) Glucose (74-99) mg/dL Plasma Lactic Acid Dinh 0.6 L (0.7-2.0) mmol/L Calcium (8.4-10.2) mg/dL Total Bilirubin (0.2-1.3) mg/dL AST (14-36) U/L ALT (4-34) U/L Alkaline Phosphatase (38-126) U/L Total Protein (6.3-8.2) g/dL Albumin (3.5-5.0) g/dL Lipase (23-300) U/L HCG, Quant mIU/mL Urine Color Urine Appearance (Clear) Urine pH (5.0-8.0) Ur Specific [place] (1.001-1.035) Urine Protein (Negative) Urine Glucose (UA) (Negative) Urine Ketones (Negative) Urine Blood (Negative) Urine Nitrite (Negative) Urine Bilirubin (Negative) Urine Urobilinogen (<2.0) mg/dL Ur Leukocyte Esterase (Negative) Disposition Clinical Impression: Abdominal pain Disposition: HOME SELF-CARE Condition: Stable Instructions (If sedation given, give patient instructions): Abdominal Pain (ED) Additional Instructions: Please follow up with your PCP in 2-4 days. Return to the ED for any new or wo rsening symptoms. Is patient prescribed a controlled substance at d/c from ED?: No Referrals: Shanell Pardo MD [Primary Care Provider] - 1-2 days Time of Disposition: 18:11
--- NOTE | 2020-11-29 16:55 | US ---
EXAMINATION TYPE: US abdomen limited DATE OF EXAM: 11/29/2020 COMPARISON: NONE CLINICAL HISTORY: ruq. Pain EXAM MEASUREMENTS: Liver Length: 13.4 cm Gallbladder Wall: .3 cm CBD: .4 cm Right Kidney: 10.2 x 4.5 x 5.6 cm Pancreas: Tail obscured by overlying bowel gas Liver: wnl Gallbladder: wnl Evidence for sonographic Burr's sign: No CBD: wnl Right Kidney: wnl IMPRESSION: Negative exam. No gallstones or dilated ducts.
--- NOTE | 2020-11-29 17:06 | US ---
EXAMINATION TYPE: US transvaginal DATE OF EXAM: 11/29/2020 COMPARISON: 04/08/2019 CLINICAL HISTORY: abd pain. Pain TECHNIQUE: Transvaginal (TV). Date of LMP: May EXAM MEASUREMENTS: Uterus: 7.6 x 2.8 x 4.0 cm Endometrial Stripe: .4 cm Right Ovary: 4.3 2.5 x 2.8 cm Left Ovary: 4.3 x 2.5 x 2.5 cm 1. Uterus: Anteverted wnl 2. Endometrium: wnl 3. Right Ovary: Follicles seen 4. Left Ovary: Follicles seen Spectral, color and waveform doppler imaging shows good arterial and venous flow within the ovaries ; there is no evidence for ovarian torsion. 5. Bilateral Adnexa: wnl 6. Posterior cul-de-sac: wnl IMPRESSION: Negative transvaginal pelvic sonogram. Normal uterus. No adnexal mass. No evidence of ovarian torsion . No adverse change.
[2020-11-29 17:38] LABS: Appearance,Urine Clear (Clear); Bilirubin,Urine Negative (Negative); Blood,Urine Negative (Negative); Color,Urine Light Yellow; Glucose,Urine (UA) Negative (Negative); Ketones,Urine 1+ (Negative); Leukocyte Esterase,Urine Negative (Negative); Nitrite,Urine Negative (Negative); Protein,Urine Negative (Negative); Specific Gravity,Urine 1.013 (1.001-1.035); Urobilinogen,Urine <2.0 mg/dL (<2.0)
[2020-11-29 17:39] LABS: Basophils % (A) 0 %; Eosinophils # (A) 0.3 k/uL (0-0.7); Eosinophils % (A) 3 %; HCT 38.6 % (34.0-46.0); HGB 13.2 gm/dL (11.4-16.0); Lymphocytes # (A) 2.9 k/uL (1.0-4.8); Lymphocytes % (A) 31 %; MCH 30.2 pg (25.0-35.0); MCHC 34.2 g/dL (31.0-37.0); MCV 88.4 fL (80.0-100.0); Mean Platelet Volume 8.4; Monocytes # (A) 0.4 k/uL (0-1.0); Monocytes % (A) 5 %; Neutrophils # (A) 5.5 k/uL (1.3-7.7); Neutrophils % (A) 59 %; Platelet Count 250 k/uL (150-450); RBC 4.37 m/uL (3.80-5.40); RDW 13.2 % (11.5-15.5); WBC 9.2 k/uL (3.8-10.6)
[2020-11-29 17:47] LABS: ALT 34 U/L (4-34); AST 33 U/L (14-36); African American GFR (CKD) >90 (>60 ml/min/1.73 sqM); Albumin 3.9 g/dL (3.5-5.0); Alkaline Phosphatase 82 U/L (38-126); Anion Gap 7 mmol/L; Blood Urea Nitrogen 13 mg/dL (7-17); Carbon Dioxide 25 mmol/L (22-30); Chloride 107 mmol/L (98-107); Glucose 83 mg/dL (74-99); Lipase 58 U/L (23-300); Non-African American GFR(CKD) >90 (>60 ml/min/1.73 sqM); Sodium 139 mmol/L (137-145); Total Bilirubin 0.3 mg/dL (0.2-1.3); Total Protein 6.5 g/dL (6.3-8.2)
[2020-11-29 18:03] LABS: HCG,Quantitative Serum <2.4 mIU/mL
== END 2020-11-29 18:20 | disposition home or self-care (01) ==
LOC: EC 14:29
DX: R10.2 Pelvic and perineal pain (principal); J45.909 Unspecified asthma, uncomplicated; K21.9 Gastro-esophageal reflux disease without esophagitis; Z87.891 Personal history of nicotine dependence; Z79.52 Long term (current) use of systemic steroids
CPT/HCPCS: 36415; 76705; 76830; 80053; 81003; 83605; 83690; 84702; 85025; 93975; 99284

== ENCOUNTER 2020-12-07 00:25 | Emergency (ER) | payer OTHER ==
[2020-12-07] MEDS ORDERED: cefTRIAXone 1,000 MG VIAL (IM USE) IM STA (01:57)
[2020-12-07] MEDS ORDERED: AZITHROMYCIN 500 MG TAB PO STA (01:57)
[2020-12-07] MEDS ORDERED: FLUCONAZOLE 150 MG TAB PO STA (01:57)
[2020-12-07 02:04] LABS: Amorphous Sediment,Urine Occasional /hpf; Appearance,Urine Cloudy (Clear); Bacteria,Urine Rare /hpf; Bilirubin,Urine Negative (Negative); Blood,Urine Negative (Negative); Color,Urine Yellow; Glucose,Urine (UA) Negative (Negative); Ketones,Urine Negative (Negative); Leukocyte Esterase,Urine Negative (Negative); Mucus,Urine Rare /hpf; Nitrite,Urine Negative (Negative); PH, Urine 7.5 (5.0-8.0); Protein,Urine Negative (Negative); RBC,Urine 1 /hpf (0-5); Squamous Epithelial Cell,Urine <1 /hpf (0-4); Urobilinogen,Urine <2.0 mg/dL (<2.0); WBC,Urine <1 /hpf (0-5)
--- NOTE | 2020-12-07 02:39 | ED ---
General Adult HPI - General Chief complaint: Recheck/Abnormal Lab/Rx Stated complaint: Abd Pain Time Seen by Provider: 12/07/20 00:31 Source: patient Mode of arrival: ambulatory Limitations: no limitations - History of Present Illness Initial comments: 25 year-old female patient presents to the emergency department requesting treatment for STDs. Patient states she had unprotected sex with a new partner and is now having discharge, itching, and dysuria. Denies use of contraceptives. Denies any fever or chills. Denies pelvic pain. Patient denies any recent rash, cough, shortness of breath, chest pain, nausea, vomiting, diarrhea, constipation, back pain, numbness, tingling, dizziness, weakness, headache, visual changes, or any other complaints. - Related Data Previous Rx's Medication Instructions Recorded Acetaminophen Tab [Tylenol] 650 mg PO Q4HR PRN tab 11/17/20 Albuterol Inhaler [Ventolin Hfa 2 puff INHALATION RT-Q6H PRN #1 11/17/20 Inhaler] puff Doxepin [SINEquan] 10 mg PO HS 30 Days cap 11/17/20 Emtricitabine/Tenofovir (Tdf) 1 each PO DAILY 28 Days tablet 11/17/20 [Truvada 200 mg-300 mg Tablet] Fluticasone/Salmeterol 1 puff INHALATION RT-BID #1 11/17/20 [Fluticasone-Salmeterol 113-14] inhalation [place] Carbonate ER [Lithobid] 450 mg PO BID 30 Days tablet.er 11/17/20 Melatonin 6 mg PO HS 30 Days tablet 11/17/20 Nicotine 14Mg/24Hr Patch [Habitrol] 1 patch TRANSDERM DAILY 14 Days 11/17/20 patch Raltegravir Potassium [Isentress] 400 mg PO BID 28 Days tablet 11/17/20 fluPHENAZine [Prolixin] 4 mg PO BID 4 Days tab 11/17/20 fluPHENAZine decanoate [Prolixin 37.5 mg IM [id number] #1 vial 11/17/20 Decanoate] Cetirizine HCl 10 mg PO DAILY #14 tablet 11/20/20 predniSONE 10 mg PO DAILY 3 Days #3 tab 11/20/20 Fluconazole [Diflucan] 150 mg PO ONCE #1 tab 12/07/20 Allergies Allergy/AdvReac Type Severity Reaction Status Date / Time Penicillins Allergy Severe Anaphylaxis Verified 12/07/20 00:35 Sulfa (Sulfonamide Allergy Severe Anaphylaxis Verified 12/07/20 00:35 Antibiotics) diphenhydramine HCl Allergy Nausea Verified 12/07/20 00:35 [From Benadryl] lithium Allergy Unknown Verified 12/07/20 00:35 Review of Systems ROS Statement: Those systems with pertinent positive or pertinent negative responses have been documented in the HPI. ROS Other: All systems not noted in ROS Statement are negative. 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 Past Psychological History: Anxiety, Bipolar, Depression, Panic Disorder, PTSD, Schizoaffective Disorder Smoking Status: Former smoker Past Alcohol Use History: None Reported Past Drug Use History: Marijuana - Past Family History Mother Family Medical History: No Reported History Father Family Medical History: No Reported History Additional Family Medical History / Comment(s): bipolar, sever seasonal allergies Brother(s) Family Medical History: No Reported History Sister(s) Family Medical History: No Reported History General Exam Limitations: no limitations General appearance: alert, in no apparent distress, other (This is a well- developed, well-nourished adult female patient in no acute distress. Vital signs upon presentation are temperature 98.4F, pulse 86, respirations 18, blood pressure 98/62, pulse ox 97% on room air.) Eye exam: Present: normal appearance, PERRL, EOMI. Absent: scleral icterus, conjunctival injection, periorbital swelling ENT exam: Present: normal exam, normal oropharynx, mucous membranes moist Respiratory exam: Present: normal lung sounds bilaterally. Absent: respiratory distress, wheezes, rales, rhonchi, stridor Cardiovascular Exam: Present: regular rate, normal rhythm, normal heart sounds. Absent: systolic murmur, diastolic murmur, rubs, gallop, clicks GI/Abdominal exam: Present: soft, normal bowel sounds. Absent: distended, tenderness, guarding, rebound, rigid Neurological exam: Present: alert, oriented X3, CN II-XII intact Psychiatric exam: Present: normal mood, flat affect Skin exam: Present: warm, dry, intact, normal color. Absent: rash Course Vital Signs 12/07/20 12/07/20 00:34 02:52 Temperature 98.4 F 98.6 F Pulse Rate 86 68 Respiratory 18 14 Rate Blood Pressure 98/62 102/60 O2 Sat by Pulse 97 97 Oximetry Medical Decision Making - Medical Decision Making 25-year-old female patient presents to the emergency department today for STD check and treatment. Reports dysuria, vaginal itching, and discharge for the last couple of days. Physical examinations unremarkable. We did send cultures. Urinalysis shows no sign of infection. Negative test. We did treat for STDs empirically. Also review of cultures did show kerwin albicans species, she denies ever receiving treatment for yeast infections we did give dose of Diflucan with prescription to have an additional dose in 3 days. She is instructed to follow-up with her primary care physician for recheck in 1-2 days. Return parameters were discussed in detail. She verbalizes understanding and agrees with this plan. My attending is Dr. Bella. - Lab Data Lab Results 12/07/20 12/07/20 12/07/20 Range/Units 01:33 01:33 01:33 Urine Color Yellow Urine Appearance Cloudy H (Clear) Urine pH 7.5 (5.0-8.0) Ur Specific [place] 1.020 (1.001-1.035) Urine Protein Negative (Negative) Urine Glucose (UA) Negative (Negative) Urine Ketones Negative (Negative) Urine Blood Negative (Negative) Urine Nitrite Negative (Negative) Urine Bilirubin Negative (Negative) Urine Urobilinogen <2.0 (<2.0) mg/dL Ur Leukocyte Esterase Negative (Negative) Urine RBC 1 (0-5) /hpf Urine WBC <1 (0-5) /hpf Ur Squamous Epith Cells <1 (0-4) /hpf Amorphous Sediment Occasional H (None) /hpf Urine Bacteria Rare H (None) /hpf Urine Mucus Rare H (None) /hpf Urine HCG, Qual Not Detected (Not Detectd) Trichomonas Ag (Rapid) Negative (Negative) Disposition Clinical Impression: Vaginal itching, Dysuria Disposition: HOME SELF-CARE Condition: Good Instructions (If sedation given, give patient instructions): Sexually Transmitted Diseases (ED), Yeast Infection (ED) Additional Instructions: Follow-up with your primary care physician for recheck in 1-2 days. Utilize your local health department for any further STD needs. Return to the emergency department for any new, worsening, or concerning symptoms. Prescriptions: Fluconazole [Diflucan] 150 mg PO ONCE #1 tab Is patient prescribed a controlled substance at d/c from ED?: No Referrals: Lauren Denson MD [Primary Care Provider] - 1-2 days Time of Disposition: 02:38
[2020-12-07 02:53] VITALS: BP 102/60; PULSE 68; RESP 14; TEMP 98.6
== END 2020-12-07 02:54 | disposition home or self-care (01) ==
LOC: EC 00:25
DX: L29.2 Pruritus vulvae (principal); R30.0 Dysuria; R10.30 Lower abdominal pain, unspecified; J45.909 Unspecified asthma, uncomplicated; K21.9 Gastro-esophageal reflux disease without esophagitis; Z87.442 Personal history of urinary calculi; G43.909 Migraine, unspecified, not intractable, without status migrainosus; F41.9 Anxiety disorder, unspecified; F32.9 Major depressive disorder, single episode, unspecified; F25.9 Schizoaffective disorder, unspecified; F12.90 Cannabis use, unspecified, uncomplicated; Z87.891 Personal history of nicotine dependence; Z79.51 Long term (current) use of inhaled steroids; Z88.0 Allergy status to penicillin
CPT/HCPCS: 81001; 81025; 87808; 87491; 87591; 87070; 99284; 96372; J0696

== ENCOUNTER 2020-12-14 16:29 | Emergency (ER) | payer OTHER ==
[2020-12-14 16:48] VITALS: BP 116/79; PULSE 87; RESP 18; TEMP 98.1
--- NOTE | 2020-12-14 17:12 | ED ---
General Adult HPI - General Source: patient Mode of arrival: ambulatory Limitations: no limitations <Madisyn Thomson - Last Filed: 12/14/20 17:57> <Anthony Bella - Last Filed: 12/15/20 00:27> - General Chief complaint: Psychiatric Symptoms Stated complaint: EPS eval Time Seen by Provider: 12/14/20 17:12 - History of Present Illness Initial comments: There is a 25-year-old female who presents the ER today requesting a psychiatric evaluation. Patient has a very extensive psychiatric history, she receives jai hly injections her last injection was earlier today she takes Trileptal twice daily and states she's been compliant. Patient states that she told her guardian that she no longer wants limited assisted and she wants lip with a friend. She states that her guardian told her that she needed to have a psychiatric evaluation and if she didn't come under her own free will they would contact police to bring her in. Patient states she thinks her guardian recommended this because the patient had pictures on her Facebook where she is posing holding her belly as though she is . Patient states she believes she is she has not had a menses in 7 months. She has had multiple tests that are negative and had ultrasounds which show no fetus but she still believes she may be . (Madisyn Thomson) - Related Data Home Medications Medication Instructions Recorded Confirmed Emtricitabine/Tenofovir (Tdf) 1 tab PO DAILY@0812/14/20 12/14/20 [Truvada 200 mg-300 mg Tablet] Melatonin 6 mg PO HS@209912/14/20 12/14/20 Nicotine 14Mg/24Hr Patch [Habitrol] 1 patch TRANSDERM DAILY@0812/14/20 12/14/20 OXcarbazepine [Trileptal] 300 mg PO BID@08,209912/14/20 12/14/20 Raltegravir Potassium [Isentress] 400 mg PO BID@0800,209912/14/20 12/14/20 Previous Rx's Medication Instructions Recorded Albuterol Inhaler [Ventolin Hfa 2 puff INHALATION RT-Q6H PRN #1 11/17/20 Inhaler] puff Allergies Allergy/AdvReac Type Severity Reaction Status Date / Time Penicillins Allergy Severe Anaphylaxis Verified 12/14/20 17:55 Sulfa (Sulfonamide Allergy Severe Anaphylaxis Verified 12/14/20 17:55 Antibiotics) diphenhydramine HCl Allergy Nausea Verified 12/14/20 17:55 [From Benadryl] lithium Allergy Unknown Verified 12/14/20 17:55 Review of Systems ROS Other: All systems not noted in ROS Statement are negative. <Madisyn Thomson - Last Filed: 12/14/20 17:57> ROS Other: All systems not noted in ROS Statement are negative. <Anthony Bella - Last Filed: 12/15/20 00:27> ROS Statement: Those systems with pertinent positive or pertinent negative responses have been documented in the HPI. 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 Past Psychological History: Anxiety, Bipolar, Depression, Panic Disorder, PTSD, Schizoaffective Disorder Smoking Status: Former smoker Past Alcohol Use History: None Reported Past Drug Use History: Marijuana - Past Family History Mother Family Medical History: No Reported History Father Family Medical History: No Reported History Additional Family Medical History / Comment(s): bipolar, sever seasonal allergies Brother(s) Family Medical History: No Reported History Sister(s) Family Medical History: No Reported History <Madisyn Thomson - Last Filed: 12/14/20 17:57> General Exam Limitations: no limitations <Madisyn Thomson P - Last Filed: 12/14/20 17:57> - General Exam Comments Initial Comments: Physical Exam GENERAL: Patient is well-developed and well-nourished. Patient is nontoxic and well-hydrated and is in no distress. HENT: Normocephalic, Atraumatic. EYES: PERRL, EOMI PULMONARY: Unlabored respirations. CARDIOVASCULAR: RRR Warm and well perfused extremities ABDOMEN: obese SKIN: No rashes or bruising : Deferred NEUROLOGIC: Alert and oriented Normal speech Normal gait MUSCULOSKELETAL: Moving all extremities with no apparent injury PSYCHIATRIC: No SI/HI (Madisyn Thomson) Course Vital Signs 12/14/20 16:43 Temperature 98.1 F Pulse Rate 87 Respiratory 18 Rate Blood Pressure 116/79 O2 Sat by Pulse 97 Oximetry Disposition <Madisyn Thomson - Last Filed: 12/14/20 17:57> Is patient prescribed a controlled substance at d/c from ED?: No <Anthony Bella - Last Filed: 12/15/20 00:27> Clinical Impression: Schizoaffective disorder Disposition: HOME SELF-CARE Condition: Good Instructions (If sedation given, give patient instructions): Schizoaffective Disorder (ED) Referrals: Lauren Denson MD [Primary Care Provider] - 1-2 days
== END 2020-12-15 00:39 | disposition home or self-care (01) ==
LOC: EC 16:29
DX: F25.9 Schizoaffective disorder, unspecified (principal); F41.9 Anxiety disorder, unspecified; F32.9 Major depressive disorder, single episode, unspecified; F12.90 Cannabis use, unspecified, uncomplicated; J45.909 Unspecified asthma, uncomplicated; K21.9 Gastro-esophageal reflux disease without esophagitis; G43.909 Migraine, unspecified, not intractable, without status migrainosus; Z87.891 Personal history of nicotine dependence; Z79.51 Long term (current) use of inhaled steroids; Z88.0 Allergy status to penicillin
CPT/HCPCS: 82075; 99284

== ENCOUNTER 2020-12-29 11:20 | Emergency (ER) | payer OTHER ==
[2020-12-29 11:24] VITALS: BP 126/86; PULSE 89; RESP 18; TEMP 97.7
[2020-12-29 12:02] LABS: Appearance,Urine Cloudy (Clear); Bacteria,Urine Rare /hpf; Bilirubin,Urine Negative (Negative); Blood,Urine Large (Negative); Color,Urine Yellow; Glucose,Urine (UA) Negative (Negative); Ketones,Urine Negative (Negative); Leukocyte Esterase,Urine Small (Negative); Mucus,Urine Rare /hpf; Nitrite,Urine Negative (Negative); PH, Urine 5.5 (5.0-8.0); Protein,Urine Negative (Negative); RBC,Urine 2 /hpf (0-5); Specific Gravity,Urine 1.017 (1.001-1.035); Squamous Epithelial Cell,Urine 10 /hpf (0-4); Urobilinogen,Urine <2.0 mg/dL (<2.0); WBC,Urine 3 /hpf (0-5)
--- NOTE | 2020-12-29 12:07 | ED ---
General Adult HPI - General Chief complaint: Urogenital Stated complaint: ab pain Time Seen by Provider: 12/29/20 11:26 Source: patient, RN notes reviewed Mode of arrival: ambulatory Limitations: no limitations - History of Present Illness Initial comments: 25-year-old female presents for possible STD check. Patient reports that she had sexual intercourse with her ex-boyfriend a week ago. 3 days ago she started to have some brownish red vaginal discharge. Reports she is nervous that it is related to an STD. Denies abdominal pain. Denies fevers.Patient has no other complaints at this time including shortness of breath, chest pain, abdominal pain, nausea or vomiting, headache, or visual changes. - Related Data Home Medications Medication Instructions Recorded Confirmed Emtricitabine/Tenofovir (Tdf) 1 tab PO DAILY@0800 12/14/20 12/14/20 [Truvada 200 mg-300 mg Tablet] Melatonin 6 mg PO HS@209912/14/20 12/14/20 Nicotine 14Mg/24Hr Patch [Habitrol] 1 patch TRANSDERM DAILY@0800 12/14/20 12/14/20 OXcarbazepine [Trileptal] 300 mg PO BID@0800,209912/14/20 12/29/20 Raltegravir Potassium [Isentress] 400 mg PO BID@0800,209912/14/20 12/14/20 fluPHENAZine decanoate [Prolixin 37.5 mg IM [id number] 12/29/20 12/29/20 Decanoate] Previous Rx's Medication Instructions Recorded Albuterol Inhaler [Ventolin Hfa 2 puff INHALATION RT-Q6H PRN #1 11/17/20 Inhaler] puff Doxycycline [Vibramycin] 100 mg PO BID 7 Days #14 capsule 12/29/20 Allergies Allergy/AdvReac Type Severity Reaction Status Date / Time Penicillins Allergy Severe Anaphylaxis Verified 12/29/20 11:21 Sulfa (Sulfonamide Allergy Severe Anaphylaxis Verified 12/29/20 11:21 Antibiotics) diphenhydramine HCl Allergy Nausea Verified 12/29/20 11:21 [From Benadryl] lithium Allergy Unknown Verified 12/29/20 11:21 Review of Systems ROS Statement: Those systems with pertinent positive or pertinent negative responses have been documented in the HPI. ROS Other: All systems not noted in ROS Statement are negative. 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 Past Psychological History: Anxiety, Bipolar, Depression, Panic Disorder, PTSD, Schizoaffective Disorder Smoking Status: Former smoker Past Alcohol Use History: None Reported Past Drug Use History: Marijuana - Past Family History Mother Family Medical History: No Reported History Father Family Medical History: No Reported History Additional Family Medical History / Comment(s): bipolar, sever seasonal allergies Brother(s) Family Medical History: No Reported History Sister(s) Family Medical History: No Reported History General Exam Limitations: no limitations General appearance: alert, in no apparent distress Head exam: Present: atraumatic, normocephalic, normal inspection Eye exam: Present: normal appearance, PERRL, EOMI. Absent: scleral icterus, conjunctival injection, periorbital swelling ENT exam: Present: normal exam, mucous membranes moist Neck exam: Present: normal inspection. Absent: tenderness, meningismus, lymphadenopathy Respiratory exam: Present: normal lung sounds bilaterally. Absent: respiratory distress, wheezes, rales, rhonchi, stridor Cardiovascular Exam: Present: regular rate, normal rhythm, normal heart sounds. Absent: systolic murmur, diastolic murmur, rubs, gallop, clicks GI/Abdominal exam: Present: soft, normal bowel sounds. Absent: distended, tenderness, guarding, rebound, rigid External exam: Present: normal external exam. Absent: erythema, swelling, lesions, lacerations, ecchymosis Speculum exam: Present: vaginal discharge, vaginal bleeding By manual exam: Present: normal by manual exam. Absent: cervical motion tenderness, adnexal tenderness, uterine tenderness Course Vital Signs 12/29/20 11:22 Temperature 97.7 F Pulse Rate 89 Respiratory 18 Rate Blood Pressure 126/86 O2 Sat by Pulse 97 Oximetry Medical Decision Making - Medical Decision Making Pelvic exam unremarkable. Slight vaginal bleeding noted. Patient is not . Urinalysis does not show any obvious evidence of infection. Trichomonas is negative. Patient did request empiric treatment for gonorrhea and chlamydia. We can empirically treat for Chlamydia however given patient has a severe penicillin ALLERGY we will hold off on treating for gonorrhea until we get the results. Patient will follow up with her primary care. She will return for any worsening symptoms. - Lab Data Lab Results 12/29/20 12/29/20 12/29/20 Range/Units 11:45 11:45 11:45 Urine Color Yellow Urine Appearance Cloudy H (Clear) Urine pH 5.5 (5.0-8.0) Ur Specific [place] 1.017 (1.001-1.035) Urine Protein Negative (Negative) Urine Glucose (UA) Negative (Negative) Urine Ketones Negative (Negative) Urine Blood Large H (Negative) Urine Nitrite Negative (Negative) Urine Bilirubin Negative (Negative) Urine Urobilinogen <2.0 (<2.0) mg/dL Ur Leukocyte Esterase Small H (Negative) Urine RBC 2 (0-5) /hpf Urine WBC 3 (0-5) /hpf Ur Squamous Epith Cells 10 H (0-4) /hpf Urine Bacteria Rare H (None) /hpf Urine Mucus Rare H (None) /hpf Urine HCG, Qual Not Detected (Not Detectd) Trichomonas Ag (Rapid) Negative (Negative) Disposition Clinical Impression: Vaginal discharge Disposition: HOME SELF-CARE Condition: Good Instructions (If sedation given, give patient instructions): Vaginal Discharge (ED) Additional Instructions: Take antibiotics as directed. Do not go in the sun with direct exposure given this medication can cause you to have sunburns. Please follow up with primary care. Return to the emergency room for any worsening symptoms. Prescriptions: Doxycycline [Vibramycin] 100 mg PO BID 7 Days #14 capsule Is patient prescribed a controlled substance at d/c from ED?: No Referrals: Lauren Denson MD [Primary Care Provider] - 1-2 days Time of Disposition: 12:22
[2020-12-29] MEDS ORDERED: AZITHROMYCIN 500 MG TAB PO STA (12:19)
[2020-12-29] MEDS ORDERED: DOXYCYCLINE 100 MG CAP PO STA (12:21)
[2020-12-30 15:46] LABS: C. trachomatis,PCR Negative (Neg,Equiv); Chlamydia trachomatis Source Vagina; N. gonorrhoeae,PCR Negative (Neg,Equiv); Neisseria Source Vagina
== END 2020-12-29 12:42 | disposition home or self-care (01) ==
LOC: EC 11:20
DX: N89.8 Other specified noninflammatory disorders of vagina (principal); J45.909 Unspecified asthma, uncomplicated; F32.9 Major depressive disorder, single episode, unspecified; F25.9 Schizoaffective disorder, unspecified; F12.90 Cannabis use, unspecified, uncomplicated; Z87.891 Personal history of nicotine dependence; Z87.442 Personal history of urinary calculi
CPT/HCPCS: 81001; 81025; 87070; 87491; 87591; 87808; 99283

== ENCOUNTER 2021-01-03 07:02 | Emergency (ER) | payer OTHER ==
[2021-01-03 07:19] VITALS: BP 115/73; PULSE 85; RESP 18; TEMP 98.4
--- NOTE | 2021-01-03 07:31 | ED ---
General Adult HPI - General Chief complaint: Abdominal Pain Stated complaint: Abd Pain Time Seen by Provider: 01/03/21 07:21 Source: patient, RN notes reviewed Mode of arrival: ambulatory Limitations: no limitations - History of Present Illness Initial comments: 25-year-old female presents to the emergency room for STD treatment. Patient reports that she was recently treated for Chlamydia with doxycycline and is 5 days into her prescription. Patient had intercourse with her boyfriend yesterday apparently and she just told her he does so positive for chlamydia. Patient is requesting Rocephin and azithromycin. Patient has no other complaints at this time including shortness of breath, chest pain, abdominal pain, nausea or vomiting, headache, or visual changes. - Related Data Home Medications Medication Instructions Recorded Confirmed Emtricitabine/Tenofovir (Tdf) 1 tab PO DAILY@0800 12/14/20 12/14/20 [Truvada 200 mg-300 mg Tablet] Melatonin 6 mg PO HS@209912/14/20 12/14/20 Nicotine 14Mg/24Hr Patch [Habitrol] 1 patch TRANSDERM DAILY@0800 12/14/20 12/14/20 OXcarbazepine [Trileptal] 300 mg PO BID@0800,2100 12/14/20 12/29/20 Raltegravir Potassium [Isentress] 400 mg PO BID@0800,209912/14/20 12/14/20 fluPHENAZine decanoate [Prolixin 37.5 mg IM [id number] 12/29/20 12/29/20 Decanoate] Previous Rx's Medication Instructions Recorded Albuterol Inhaler [Ventolin Hfa 2 puff INHALATION RT-Q6H PRN #1 11/17/20 Inhaler] puff Doxycycline [Vibramycin] 100 mg PO BID 7 Days #14 capsule 12/29/20 Allergies Allergy/AdvReac Type Severity Reaction Status Date / Time Penicillins Allergy Severe Anaphylaxis Verified 01/03/21 07:19 Sulfa (Sulfonamide Allergy Severe Anaphylaxis Verified 01/03/21 07:19 Antibiotics) diphenhydramine HCl Allergy Nausea Verified 01/03/21 07:19 [From Benadryl] lithium Allergy Unknown Verified 01/03/21 07:19 Review of Systems ROS Statement: Those systems with pertinent positive or pertinent negative responses have been documented in the HPI. ROS Other: All systems not noted in ROS Statement are negative. 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 Past Psychological History: Anxiety, Bipolar, Depression, Panic Disorder, PTSD, Schizoaffective Disorder Smoking Status: Current every day smoker Past Alcohol Use History: None Reported Past Drug Use History: Marijuana - Past Family History Mother Family Medical History: No Reported History Father Family Medical History: No Reported History Additional Family Medical History / Comment(s): bipolar, sever seasonal allergies Brother(s) Family Medical History: No Reported History Sister(s) Family Medical History: No Reported History General Exam Limitations: no limitations General appearance: alert, in no apparent distress Head exam: Present: atraumatic, normocephalic, normal inspection Eye exam: Present: normal appearance, PERRL, EOMI. Absent: scleral icterus, conjunctival injection, periorbital swelling ENT exam: Present: normal exam Neck exam: Present: normal inspection. Absent: tenderness, meningismus, lymphadenopathy Respiratory exam: Present: normal lung sounds bilaterally. Absent: respiratory distress, wheezes, rales, rhonchi, stridor Cardiovascular Exam: Present: regular rate, normal rhythm, normal heart sounds. Absent: systolic murmur, diastolic murmur, rubs, gallop, clicks GI/Abdominal exam: Present: soft, normal bowel sounds. Absent: distended, tenderness, guarding, rebound, rigid Course Vital Signs 01/03/ 07:17 Temperature 98.4 F Pulse Rate 85 Respiratory 18 Rate Blood Pressure 115/73 O2 Sat by Pulse 100 Oximetry Medical Decision Making - Medical Decision Making Patient is a currently being treated with doxycycline. I did review her STD testing from the which was negative for gonorrhea Chlamydia and Trichomonas. Patient is still on doxycycline. Pelvic exam performed by myself at that time revealed slight vaginal discharge or vaginal bleeding. Patient wants Rocephin and azithromycin. I discussed that this is unnecessary especially given her anaphylactic penicillin ALLERGY. She was negative for gonorrhea and chlamydia and she was arty on the treatment for chlamydia. 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 She can return here for any worsening symptoms. Disposition Clinical Impression: STD exposure Disposition: HOME SELF-CARE Condition: Good Instructions (If sedation given, give patient instructions): Sexually Transmitted Diseases (ED) Additional Instructions: Continue doxycycline. Follow up with your doctor in 1-2 days. Return to the ER for any worsening symptoms. Is patient prescribed a controlled substance at d/c from ED?: No Referrals: Lauren Denson MD [Primary Care Provider] - 1-2 days Time of Disposition: 07:30
== END 2021-01-03 08:04 | disposition home or self-care (01) ==
LOC: EC 07:02
DX: Z20.2 Contact with and (suspected) exposure to infections with a predominantly sexual mode of transmission (principal); F32.9 Major depressive disorder, single episode, unspecified; F41.9 Anxiety disorder, unspecified; F25.9 Schizoaffective disorder, unspecified; F17.200 Nicotine dependence, unspecified, uncomplicated; F12.90 Cannabis use, unspecified, uncomplicated; J45.909 Unspecified asthma, uncomplicated; Z87.442 Personal history of urinary calculi
CPT/HCPCS: 99283

== ENCOUNTER 2021-02-06 22:26 | Emergency (ER) | payer OTHER ==
[2021-02-07] MEDS ORDERED: AZITHROMYCIN 500 MG TAB PO STA (00:29)
--- NOTE | 2021-02-07 00:31 | ED ---
ENT HPI - General Chief complaint: ENT Stated complaint: Sore throat,SOB Time Seen by Provider: 02/06/21 23:08 Source: patient, RN notes reviewed, old records reviewed Mode of arrival: ambulatory Limitations: no limitations - History of Present Illness Initial comments: This is a 25-year-old female to the ER for evaluation. Patient's well-known to our facility for psychiatric illness patient coming in for evaluation of sore throat states she is requesting a strep test. Patient states she has multiple episodes of strep throat lately. Patient has otherwise no complaints no fevers no travel history no known sick contacts. No nausea vomiting or diarrhea. No recent change in home medications. Patient denying any psychiatric complaints currently MD complaint: sore throat, difficulty swallowing -: days(s) Location: throat Severity: mild Severity scale (1-10): 2 Quality: sharp Consistency: intermittent Improves with: none Worsens with: swallowing Associated Symptoms: sore throat - Related Data Home Medications Medication Instructions Recorded Confirmed Emtricitabine/Tenofovir (Tdf) 1 tab PO DAILY@0800 12/14/20 12/14/20 [Truvada 200 mg-300 mg Tablet] Melatonin 6 mg PO HS@209912/14/20 12/14/20 Nicotine 14Mg/24Hr Patch [Habitrol] 1 patch TRANSDERM DAILY@0800 12/14/20 12/14/20 OXcarbazepine [Trileptal] 300 mg PO BID@0800,209912/14/20 12/29/20 Raltegravir Potassium [Isentress] 400 mg PO BID@0800,209912/14/20 12/14/20 fluPHENAZine decanoate [Prolixin 37.5 mg IM [id number] 12/29/20 12/29/20 Decanoate] Previous Rx's Medication Instructions Recorded Albuterol Inhaler [Ventolin Hfa 2 puff INHALATION RT-Q6H PRN #1 11/17/20 Inhaler] puff Doxycycline [Vibramycin] 100 mg PO BID 7 Days #14 capsule 12/29/20 Azithromycin [Zithromax Z-pack (6 0 mg PO DIRECTED #1 pack 02/07/21 tabs)] Azithromycin [Zithromax Z-pack (6 0 mg PO DIRECTED #1 pack 02/07/21 tabs)] Allergies Allergy/AdvReac Type Severity Reaction Status Date / Time Penicillins Allergy Severe Anaphylaxis Verified 02/06/21 22:52 Sulfa (Sulfonamide Allergy Severe Anaphylaxis Verified 02/06/21 22:52 Antibiotics) diphenhydramine HCl Allergy Nausea Verified 02/06/21 22:52 [From Benadryl] lithium Allergy Unknown Verified 02/06/21 22:52 Review of Systems ROS Statement: Those systems with pertinent positive or pertinent negative responses have been documented in the HPI. ROS Other: All systems not noted in ROS Statement are negative. 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 Past Psychological History: Anxiety, Bipolar, Depression, Panic Disorder, PTSD, Schizoaffective Disorder Smoking Status: Current every day smoker Past Alcohol Use History: None Reported Past Drug Use History: Marijuana - Past Family History Mother Family Medical History: No Reported History Father Family Medical History: No Reported History Additional Family Medical History / Comment(s): bipolar, sever seasonal allergies Brother(s) Family Medical History: No Reported History Sister(s) Family Medical History: No Reported History General Exam Limitations: no limitations General appearance: alert, in no apparent distress Head exam: Present: atraumatic, normocephalic, normal inspection Eye exam: Present: normal appearance, PERRL, EOMI. Absent: scleral icterus, conjunctival injection, periorbital swelling ENT exam: Present: normal exam, mucous membranes moist. Absent: normal oropharynx (Posterior oropharynx is erythematous) Neck exam: Present: normal inspection. Absent: tenderness, meningismus, lymphadenopathy Respiratory exam: Present: normal lung sounds bilaterally. Absent: respiratory distress, wheezes, rales, rhonchi, stridor Cardiovascular Exam: Present: regular rate, normal rhythm, normal heart sounds. Absent: systolic murmur, diastolic murmur, rubs, gallop, clicks GI/Abdominal exam: Present: soft, normal bowel sounds. Absent: distended, tenderness, guarding, rebound, rigid Extremities exam: Present: normal inspection, full ROM, normal capillary refill. Absent: tenderness, pedal edema, joint swelling, calf tenderness Back exam: Present: normal inspection Neurological exam: Present: alert, oriented X3, CN II-XII intact Psychiatric exam: Present: normal affect, normal mood Skin exam: Present: warm, dry, intact, normal color. Absent: rash Course Vital Signs 02/06/21 02/07/21 22:50 00:50 Temperature 98.1 F 97.7 F Pulse Rate 100 84 Respiratory 20 18 Rate Blood Pressure 105/71 104/69 O2 Sat by Pulse 97 98 Oximetry - Reevaluation(s) Reevaluation #1: 02/07/21 Medical record is reviewed Patient symptoms are improved here in the emergency department Patient informed of results and questions answered Patient is in no acute distress Medical Decision Making - Medical Decision Making 25 female to the ER for evaluation requesting strep throat test. Patient is positive for strep throat will place on antibiotics for pharyngitis and can be discharged home - Lab Data Lab Results 02/06/21 Range/Units 23:29 Group A Strep Rapid Positive A (Negative) Disposition Clinical Impression: Pharyngitis, Sore throat, Strep throat Disposition: HOME SELF-CARE Condition: Good Instructions (If sedation given, give patient instructions): Pharyngitis (ED) Prescriptions: Azithromycin [Zithromax Z-pack (6 tabs)] 0 mg PO DIRECTED #1 pack Azithromycin [Zithromax Z-pack (6 tabs)] 0 mg PO DIRECTED #1 pack Is patient prescribed a controlled substance at d/c from ED?: No Referrals: Lauren Denson MD [Primary Care Provider] - 1-2 days
[2021-02-07 00:52] VITALS: BP 104/69; PULSE 84; RESP 18; TEMP 97.7
== END 2021-02-07 00:50 | disposition home or self-care (01) ==
LOC: EC 22:26
DX: J02.0 Streptococcal pharyngitis (principal); J45.909 Unspecified asthma, uncomplicated; K21.9 Gastro-esophageal reflux disease without esophagitis; F17.200 Nicotine dependence, unspecified, uncomplicated; Z87.442 Personal history of urinary calculi; F32.9 Major depressive disorder, single episode, unspecified; F25.9 Schizoaffective disorder, unspecified
CPT/HCPCS: 87430; 99283

== ENCOUNTER 2021-03-01 20:08 | Emergency (ER) | payer OTHER ==
[2021-03-01 20:39] VITALS: RESP 18; TEMP 98
[2021-03-01 21:18] LABS: Appearance,Urine Cloudy (Clear); Bacteria,Urine Rare /hpf; Bilirubin,Urine Negative (Negative); Blood,Urine Negative (Negative); Color,Urine Yellow; Glucose,Urine (UA) Negative (Negative); Ketones,Urine Negative (Negative); Leukocyte Esterase,Urine Large (Negative); Mucus,Urine Rare /hpf; Nitrite,Urine Negative (Negative); Protein,Urine Negative (Negative); RBC,Urine 4 /hpf (0-5); Specific Gravity,Urine 1.021 (1.001-1.035); Squamous Epithelial Cell,Urine 13 /hpf (0-4); Urobilinogen,Urine <2.0 mg/dL (<2.0); WBC,Urine 25 /hpf (0-5)
[2021-03-01] MEDS ORDERED: AZITHROMYCIN 500 MG TAB PO STA (22:13)
[2021-03-01] MEDS ORDERED: cefTRIAXone IN SWFI 1,000 MG/10 ML SYRINGE IVP STA (22:13)
[2021-03-01] MEDS ORDERED: FLUCONAZOLE 150 MG TAB PO STA (22:14)
[2021-03-01] MEDS ORDERED: DOXYCYCLINE 100 MG CAP PO STA (22:14)
--- NOTE | 2021-03-01 22:15 | ED ---
Female Urogenital HPI - General Chief complaint: Abdominal Pain Stated complaint: Abd Pain Time Seen by Provider: 03/01/21 21:11 Source: patient, RN notes reviewed, old records reviewed Mode of arrival: ambulatory Limitations: no limitations - History of Present Illness Initial comments: This is a 26-year-old female to the ER for evaluation. Patient presents today for evaluation in regards to what she believes maybe an STD with abdominal pain. Patient states she's been having some sex with multiple partners and is concern for STD and burning with urination. MD Complaint: dysuria, pelvic pain -: days(s) Location: suprapubic Radiation: non-radiating Severity scale (1-10): 3 Quality: cramping, sharp Consistency: intermittent Improves with: none Worsens with: urination, intercourse Patient : No Associated Symptoms: denies other symptoms - Related Data Sexually active: Yes Home Medications Medication Instructions Recorded Confirmed Emtricitabine/Tenofovir (Tdf) 1 tab PO DAILY@0800 12/14/20 12/14/20 [Truvada 200 mg-300 mg Tablet] Melatonin 6 mg PO HS@209912/14/20 12/14/20 Nicotine 14Mg/24Hr Patch [Habitrol] 1 patch TRANSDERM DAILY@0800 12/14/20 12/14/20 OXcarbazepine [Trileptal] 300 mg PO BID@0800,209912/14/20 12/29/20 Raltegravir Potassium [Isentress] 400 mg PO BID@0800,209912/14/20 12/14/20 fluPHENAZine decanoate [Prolixin 37.5 mg IM [id number] 12/29/20 12/29/20 Decanoate] Previous Rx's Medication Instructions Recorded Albuterol Inhaler [Ventolin Hfa 2 puff INHALATION RT-Q6H PRN #1 11/17/20 Inhaler] puff Doxycycline [Vibramycin] 100 mg PO BID 7 Days #14 capsule 12/29/20 Azithromycin [Zithromax Z-pack (6 0 mg PO DIRECTED #1 pack 02/07/21 tabs)] Azithromycin [Zithromax Z-pack (6 0 mg PO DIRECTED #1 pack 02/07/21 tabs)] Doxycycline Monohydrate [Monodox] 100 mg PO Q12HR #20 cap 03/01/21 Allergies Allergy/AdvReac Type Severity Reaction Status Date / Time Penicillins Allergy Severe Anaphylaxis Verified 03/01/21 20:40 Sulfa (Sulfonamide Allergy Severe Anaphylaxis Verified 03/01/21 20:40 Antibiotics) diphenhydramine HCl Allergy Nausea Verified 03/01/21 20:40 [From Benadryl] lithium Allergy Unknown Verified 03/01/21 20:40 Review of Systems ROS Statement: Those systems with pertinent positive or pertinent negative responses have been documented in the HPI. ROS Other: All systems not noted in ROS Statement are negative. 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 Past Psychological History: Anxiety, Bipolar, Depression, Panic Disorder, PTSD, Schizoaffective Disorder Smoking Status: Current every day smoker Past Alcohol Use History: None Reported Past Drug Use History: Marijuana - Past Family History Mother Family Medical History: No Reported History Father Family Medical History: No Reported History Additional Family Medical History / Comment(s): bipolar, sever seasonal allergies Brother(s) Family Medical History: No Reported History Sister(s) Family Medical History: No Reported History General Exam Limitations: no limitations General appearance: alert, in no apparent distress Head exam: Present: atraumatic, normocephalic, normal inspection Eye exam: Present: normal appearance, PERRL, EOMI. Absent: scleral icterus, conjunctival injection, periorbital swelling ENT exam: Present: normal exam, mucous membranes moist Neck exam: Present: normal inspection. Absent: tenderness, meningismus, lymphadenopathy Respiratory exam: Present: normal lung sounds bilaterally. Absent: respiratory distress, wheezes, rales, rhonchi, stridor Cardiovascular Exam: Present: regular rate, normal rhythm, normal heart sounds. Absent: systolic murmur, diastolic murmur, rubs, gallop, clicks GI/Abdominal exam: Present: soft, normal bowel sounds. Absent: distended, tenderness, guarding, rebound, rigid Extremities exam: Present: normal inspection, full ROM, normal capillary refill. Absent: tenderness, pedal edema, joint swelling, calf tenderness Back exam: Present: normal inspection Neurological exam: Present: alert, oriented X3, CN II-XII intact Psychiatric exam: Present: normal affect, normal mood Skin exam: Present: warm, dry, intact, normal color. Absent: rash Course Vital Signs 03/01/21 03/01/21 03/01/21 20:35 21:13 22:37 Temperature 98.0 F Pulse Rate 79 77 71 Respiratory 18 18 18 Rate Blood Pressure 109/77 110/74 109/71 O2 Sat by Pulse 100 100 100 Oximetry 03/01/21 22:53 Temperature 98.0 F Pulse Rate Respiratory Rate Blood Pressure O2 Sat by Pulse Oximetry - Reevaluation(s) Reevaluation #1: 03/01/21 Medical record is reviewed Patient symptoms are significantly improved here in the ER Patient is informed and results and questions answered Patient is in no acute distress Medical Decision Making - Medical Decision Making 26 female to the ER for evaluation of possible STD, patient given treatment here in the ER will treat for UTI and can be discharged home - Lab Data Result diagrams: 03/01/21 22:34 03/01/21 22:34 Lab Results 03/01/21 03/01/21 03/01/21 Range/Units 20:00 22:20 22:34 WBC 10.0 (3.8-10.6) k/uL RBC 4.62 (3.80-5.40) m/uL Hgb 14.4 (11.4-16.0) gm/dL Hct 42.1 (34.0-46.0) % MCV 91.2 (80.0-100.0) fL MCH 31.3 (25.0-35.0) pg MCHC 34.3 (31.0-37.0) g/dL RDW 13.0 (11.5-15.5) % Plt Count 225 (150-450) k/uL MPV 9.7 Neutrophils % 56 % Lymphocytes % 34 % Monocytes % 5 % Eosinophils % 3 % Basophils % 1 % Neutrophils # 5.6 (1.3-7.7) k/uL Lymphocytes # 3.4 (1.0-4.8) k/uL Monocytes # 0.5 (0-1.0) k/uL Eosinophils # 0.3 (0-0.7) k/uL Basophils # 0.1 (0-0.2) k/uL Sodium (137-145) mmol/L Potassium (3.5-5.1) mmol/L Chloride (98-107) mmol/L Carbon Dioxide (22-30) mmol/L Anion Gap mmol/L BUN (7-17) mg/dL Creatinine (0.52-1.04) mg/dL Est GFR (CKD-EPI)AfAm (>60 ml/min/1.73 sqM) Est GFR (CKD-EPI)NonAf (>60 ml/min/1.73 sqM) Glucose (74-99) mg/dL Calcium (8.4-10.2) mg/dL Urine Color Yellow Urine Appearance Cloudy H (Clear) Urine pH 6.0 (5.0-8.0) Ur Specific [place] 1.021 (1.001-1.035) Urine Protein Negative (Negative) Urine Glucose (UA) Negative (Negative) Urine Ketones Negative (Negative) Urine Blood Negative (Negative) Urine Nitrite Negative (Negative) Urine Bilirubin Negative (Negative) Urine Urobilinogen <2.0 (<2.0) mg/dL Ur Leukocyte Esterase Large H (Negative) Urine RBC 4 (0-5) /hpf Urine WBC 25 H (0-5) /hpf Ur Squamous Epith Cells 13 H (0-4) /hpf Urine Bacteria Rare H (None) /hpf Urine Mucus Rare H (None) /hpf Chlamydia Source Urine Chlamydia DNA (PCR) Negative (Neg,Equiv) N. gonorrhoeae Source Urine N.gonorrhoeae DNA Probe Negative (Neg,Equiv) 03/01/21 Range/Units 22:34 WBC (3.8-10.6) k/uL RBC (3.80-5.40) m/uL Hgb (11.4-16.0) gm/dL Hct (34.0-46.0) % MCV (80.0-100.0) fL MCH (25.0-35.0) pg MCHC (31.0-37.0) g/dL RDW (11.5-15.5) % Plt Count (150-450) k/uL MPV Neutrophils % % Lymphocytes % % Monocytes % % Eosinophils % % Basophils % % Neutrophils # (1.3-7.7) k/uL Lymphocytes # (1.0-4.8) k/uL Monocytes # (0-1.0) k/uL Eosinophils # (0-0.7) k/uL Basophils # (0-0.2) k/uL Sodium 137 (137-145) mmol/L Potassium 3.9 (3.5-5.1) mmol/L Chloride 103 (98-107) mmol/L Carbon Dioxide 22 (22-30) mmol/L Anion Gap 12 mmol/L BUN 8 (7-17) mg/dL Creatinine 0.72 (0.52-1.04) mg/dL Est GFR (CKD-EPI)AfAm >90 (>60 ml/min/1.73 sqM) Est GFR (CKD-EPI)NonAf >90 (>60 ml/min/1.73 sqM) Glucose 71 L (74-99) mg/dL Calcium 9.3 (8.4-10.2) mg/dL Urine Color Urine Appearance (Clear) Urine pH (5.0-8.0) Ur Specific [place] (1.001-1.035) Urine Protein (Negative) Urine Glucose (UA) (Negative) Urine Ketones (Negative) Urine Blood (Negative) Urine Nitrite (Negative) Urine Bilirubin (Negative) Urine Urobilinogen (<2.0) mg/dL Ur Leukocyte Esterase (Negative) Urine RBC (0-5) /hpf Urine WBC (0-5) /hpf Ur Squamous Epith Cells (0-4) /hpf Urine Bacteria (None) /hpf Urine Mucus (None) /hpf Chlamydia Source Chlamydia DNA (PCR) (Neg,Equiv) N. gonorrhoeae Source N.gonorrhoeae DNA Probe (Neg,Equiv) Disposition Clinical Impression: UTI (urinary tract infection), Perineal discomfort in female, Cervicitis, Vaginitis, STD (female) Disposition: HOME SELF-CARE Condition: Good Instructions (If sedation given, give patient instructions): Cervicitis (ED), Sexually Transmitted Diseases (ED) Prescriptions: Doxycycline Monohydrate [Monodox] 100 mg PO Q12HR #20 cap Is patient prescribed a controlled substance at d/c from ED?: No Referrals: Lauren Denson MD [Primary Care Provider] - 1-2 days
[2021-03-01 22:39] VITALS: BP 109/71; PULSE 71
[2021-03-01 22:49] LABS: Basophils # (A) 0.1 k/uL (0-0.2); Basophils % (A) 1 %; Eosinophils # (A) 0.3 k/uL (0-0.7); Eosinophils % (A) 3 %; HCT 42.1 % (34.0-46.0); HGB 14.4 gm/dL (11.4-16.0); Lymphocytes # (A) 3.4 k/uL (1.0-4.8); Lymphocytes % (A) 34 %; MCH 31.3 pg (25.0-35.0); MCHC 34.3 g/dL (31.0-37.0); MCV 91.2 fL (80.0-100.0); Mean Platelet Volume 9.7; Monocytes # (A) 0.5 k/uL (0-1.0); Monocytes % (A) 5 %; Neutrophils # (A) 5.6 k/uL (1.3-7.7); Neutrophils % (A) 56 %; Platelet Count 225 k/uL (150-450); RBC 4.62 m/uL (3.80-5.40)
[2021-03-01 22:57] LABS: African American GFR (CKD) >90 (>60 ml/min/1.73 sqM); Anion Gap 12 mmol/L; Blood Urea Nitrogen 8 mg/dL (7-17); Calcium 9.3 mg/dL (8.4-10.2); Carbon Dioxide 22 mmol/L (22-30); Chloride 103 mmol/L (98-107); Glucose 71 mg/dL (74-99); Non-African American GFR(CKD) >90 (>60 ml/min/1.73 sqM); Potassium 3.9 mmol/L (3.5-5.1); Sodium 137 mmol/L (137-145)
[2021-03-03 13:10] LABS: C. trachomatis,PCR Negative (Neg,Equiv); Chlamydia trachomatis Source Urine; N. gonorrhoeae,PCR Negative (Neg,Equiv); Neisseria Source Urine
== END 2021-03-01 22:53 | disposition home or self-care (01) ==
LOC: EC 20:08
DX: A64 Unspecified sexually transmitted disease (principal); N39.0 Urinary tract infection, site not specified; N72 Inflammatory disease of cervix uteri; N76.0 Acute vaginitis; J45.909 Unspecified asthma, uncomplicated; K21.9 Gastro-esophageal reflux disease without esophagitis; F17.200 Nicotine dependence, unspecified, uncomplicated; F12.90 Cannabis use, unspecified, uncomplicated; Z79.51 Long term (current) use of inhaled steroids; Z79.899 Other long term (current) drug therapy; Z88.0 Allergy status to penicillin; Z88.2 Allergy status to sulfonamides; Z88.8 Allergy status to other drugs, medicaments and biological substances
CPT/HCPCS: 36415; 80048; 85025; 81001; 87491; 87591; 87086; 87077; 87186; 99284; J0696

== ENCOUNTER 2021-03-16 03:03 | Emergency (ER) | payer OTHER ==
[2021-03-16 03:20] VITALS: RESP 20; TEMP 98.1
[2021-03-16 03:36] LABS: Appearance,Urine Clear (Clear); Bilirubin,Urine Negative (Negative); Blood,Urine Trace (Negative); Color,Urine Colorless; Glucose,Urine (UA) Negative (Negative); Ketones,Urine Negative (Negative); Leukocyte Esterase,Urine Negative (Negative); Nitrite,Urine Negative (Negative); Protein,Urine Negative (Negative); Specific Gravity,Urine 1.004 (1.001-1.035); Squamous Epithelial Cell,Urine <1 /hpf (0-4); Urobilinogen,Urine <2.0 mg/dL (<2.0); WBC,Urine 1 /hpf (0-5)
[2021-03-16] MEDS ORDERED: cefTRIAXone 250 MG VIAL IM STA (03:43)
[2021-03-16] MEDS ORDERED: AZITHROMYCIN 500 MG TAB PO STA (03:43)
--- NOTE | 2021-03-16 03:44 | ED ---
Abdominal Pain HPI - General Chief Complaint: Abdominal Pain Stated Complaint: Abdominal pain Time Seen by Provider: 03/16/21 03:04 Source: patient, EMS, RN notes reviewed, old records reviewed Mode of arrival: EMS Limitations: no limitations - History of Present Illness Initial Comments: This is a 26-year-old female well-known to our emergency department for psychiatric illness coming in for evaluation of abdominal pain. Patient states she may have an STI or STD. Patient's abdominal pain is generalized. No fevers no travel history no sick contacts MD Complaint: abdominal pain -: days(s) Location: diffuse Radiation: none Migration to: no migration Severity: mild Severity scale (1-10): 3 Quality: cramping Consistency: intermittent Improves With: nothing Worsens With: nothing Context: sick contacts Associated Symptoms: nausea Treatments Prior to Arrival: other (none) - Related Data Home Medications Medication Instructions Recorded Confirmed Emtricitabine/Tenofovir (Tdf) 1 tab PO DAILY@0800 12/14/20 12/14/20 [Truvada 200 mg-300 mg Tablet] Melatonin 6 mg PO HS@209912/14/20 12/14/20 OXcarbazepine [Trileptal] 300 mg PO BID@0800,209912/14/20 12/29/20 Raltegravir Potassium [Isentress] 400 mg PO BID@0800,209912/14/20 12/14/20 fluPHENAZine decanoate [Prolixin 37.5 mg IM [id number] 12/29/20 12/29/20 Decanoate] Allergies Allergy/AdvReac Type Severity Reaction Status Date / Time Penicillins Allergy Severe Anaphylaxis Verified 03/20/21 13:21 Sulfa (Sulfonamide Allergy Severe Anaphylaxis Verified 03/20/21 13:21 Antibiotics) diphenhydramine HCl Allergy Nausea Verified 03/20/21 13:21 [From Benadryl] lithium Allergy Unknown Verified 03/20/21 13:21 Review of Systems ROS Statement: Those systems with pertinent positive or pertinent negative responses have been documented in the HPI. ROS Other: All systems not noted in ROS Statement are negative. 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 Past Psychological History: Anxiety, Bipolar, Depression, Panic Disorder, PTSD, Schizoaffective Disorder Smoking Status: Current every day smoker Past Alcohol Use History: None Reported Past Drug Use History: Marijuana - Past Family History Mother Family Medical History: No Reported History Father Family Medical History: No Reported History Additional Family Medical History / Comment(s): bipolar, sever seasonal allergies Brother(s) Family Medical History: No Reported History Sister(s) Family Medical History: No Reported History General Exam Limitations: no limitations General appearance: alert, in no apparent distress Head exam: Present: atraumatic, normocephalic, normal inspection Eye exam: Present: normal appearance, PERRL, EOMI. Absent: scleral icterus, conjunctival injection, periorbital swelling ENT exam: Present: normal exam, mucous membranes moist Neck exam: Present: normal inspection. Absent: tenderness, meningismus, lymphadenopathy Respiratory exam: Present: normal lung sounds bilaterally. Absent: respiratory distress, wheezes, rales, rhonchi, stridor Cardiovascular Exam: Present: regular rate, normal rhythm, normal heart sounds. Absent: systolic murmur, diastolic murmur, rubs, gallop, clicks GI/Abdominal exam: Present: soft, normal bowel sounds. Absent: distended, tenderness, guarding, rebound, rigid Extremities exam: Present: normal inspection, full ROM, normal capillary refill. Absent: tenderness, pedal edema, joint swelling, calf tenderness Back exam: Present: normal inspection Neurological exam: Present: alert, oriented X3, CN II-XII intact Psychiatric exam: Present: normal affect, normal mood Skin exam: Present: warm, dry, intact, normal color. Absent: rash Course Vital Signs 03/16/21 03/16/21 03:10 04:20 Temperature 98.1 F Pulse Rate 98 92 Respiratory 20 20 Rate Blood Pressure 139/83 132/86 O2 Sat by Pulse 100 97 Oximetry - Reevaluation(s) Reevaluation #1: 03/16/21 Medical record is reviewed Symptoms are improved here in the emergency department Patient informed results and questions answered Patient is in no acute distress Medical Decision Making - Medical Decision Making 26 female to the emergency for safe for evaluation abdominal pain. Patient has adequate pain control, x-rays negative urine is negative - Lab Data Lab Results 03/16/21 03/16/21 03/16/21 Range/Units 03:23 03:23 03:23 Urine Color Colorless Urine Appearance Clear (Clear) Urine pH 7.0 (5.0-8.0) Ur Specific [place] 1.004 (1.001-1.035) Urine Protein Negative (Negative) Urine Glucose (UA) Negative (Negative) Urine Ketones Negative (Negative) Urine Blood Trace H (Negative) Urine Nitrite Negative (Negative) Urine Bilirubin Negative (Negative) Urine Urobilinogen <2.0 (<2.0) mg/dL Ur Leukocyte Esterase Negative (Negative) Urine WBC 1 (0-5) /hpf Ur Squamous Epith Cells <1 (0-4) /hpf Urine HCG, Qual Not Detected (Not Detectd) Chlamydia Source Urine Chlamydia DNA (PCR) Negative (Neg,Equiv) N. gonorrhoeae Source Urine N.gonorrhoeae DNA Probe Negative (Neg,Equiv) Disposition Clinical Impression: Abdominal pain Disposition: HOME SELF-CARE Condition: Good Instructions (If sedation given, give patient instructions): Abdominal Pain (ED) Is patient prescribed a controlled substance at d/c from ED?: No Referrals: Lauren Denson MD [Primary Care Provider] - 1-2 days
--- NOTE | 2021-03-16 04:06 | XR ---
EXAMINATION TYPE: XR KUB DATE OF EXAM: 03/16/2021 COMPARISON: 12/08/2019 HISTORY: Abdominal pain TECHNIQUE: 2 views upright FINDINGS: Bowel gas pattern is normal. There is no sign of intestinal obstruction or pneumoperitoneum . Fecal pattern is normal. There is no sign of a mass. Lung bases are clear. There are no pathologic calcifications over the kidneys. IMPRESSION: Nonacute abdomen. No change.
[2021-03-16 04:54] VITALS: BP 132/86; PULSE 92
[2021-03-17 14:15] LABS: C. trachomatis,PCR Negative (Neg,Equiv); Chlamydia trachomatis Source Urine; N. gonorrhoeae,PCR Negative (Neg,Equiv); Neisseria Source Urine
== END 2021-03-16 04:55 | disposition home or self-care (01) ==
LOC: EC 03:03
DX: R10.84 Generalized abdominal pain (principal); J45.909 Unspecified asthma, uncomplicated; K21.9 Gastro-esophageal reflux disease without esophagitis; F41.9 Anxiety disorder, unspecified; F31.9 Bipolar disorder, unspecified; F43.12 Post-traumatic stress disorder, chronic; F25.9 Schizoaffective disorder, unspecified; F17.200 Nicotine dependence, unspecified, uncomplicated; F12.90 Cannabis use, unspecified, uncomplicated; Z88.0 Allergy status to penicillin; Z88.1 Allergy status to other antibiotic agents; Z88.2 Allergy status to sulfonamides; Z87.442 Personal history of urinary calculi
CPT/HCPCS: 99284; 96372; 81001; 81025; 87491; 87591; 74018; J0696

== ENCOUNTER 2021-03-20 13:09 | Emergency (ER) | payer OTHER ==
[2021-03-20 13:24] VITALS: BP 114/88; PULSE 88; RESP 18; TEMP 97.9
[2021-03-20 13:36] LABS: Appearance,Urine Clear (Clear); Bilirubin,Urine Negative (Negative); Blood,Urine Negative (Negative); Color,Urine Light Yellow; Glucose,Urine (UA) Negative (Negative); Ketones,Urine Negative (Negative); Leukocyte Esterase,Urine Negative (Negative); Nitrite,Urine Negative (Negative); PH, Urine 7.5 (5.0-8.0); Protein,Urine Negative (Negative); Specific Gravity,Urine 1.007 (1.001-1.035); Urobilinogen,Urine <2.0 mg/dL (<2.0)
--- NOTE | 2021-03-20 13:48 | ED ---
General Adult HPI - General Chief complaint: Psychiatric Symptoms Stated complaint: psych Time Seen by Provider: 03/20/21 13:14 Source: patient, EMS, RN notes reviewed Mode of arrival: EMS Limitations: no limitations - History of Present Illness Initial comments: 26-year-old female presented for urinary frequency. Patient states that she urinated multiple times a day she was recently treated for urinary tract infection. Patient states she felt like fluid is leaking. Patient's been known to have delusional thought secondary psychiatric history or . Patient has complains abdominal pain but she has no pain currently. Patient states that she's taken multiple test which have been negative. Patient states she's had complete workup for her prior abdominal pain. Patient has been receiving her psychiatric injection. Patient offers not complaints. Denies complaints or homicidal. - Related Data Home Medications Medication Instructions Recorded Confirmed Emtricitabine/Tenofovir (Tdf) 1 tab PO DAILY@0800 12/14/20 12/14/20 [Truvada 200 mg-300 mg Tablet] Melatonin 6 mg PO HS@209912/14/20 12/14/20 OXcarbazepine [Trileptal] 300 mg PO BID@0800,209912/14/20 12/29/20 Raltegravir Potassium [Isentress] 400 mg PO BID@0800,209912/14/20 12/14/20 fluPHENAZine decanoate [Prolixin 37.5 mg IM [id number] 12/29/20 12/29/20 Decanoate] Allergies Allergy/AdvReac Type Severity Reaction Status Date / Time Penicillins Allergy Severe Anaphylaxis Verified 03/20/21 13:21 Sulfa (Sulfonamide Allergy Severe Anaphylaxis Verified 03/20/21 13:21 Antibiotics) diphenhydramine HCl Allergy Nausea Verified 03/20/21 13:21 [From Benadryl] lithium Allergy Unknown Verified 03/20/21 13:21 Review of Systems ROS Statement: Those systems with pertinent positive or pertinent negative responses have been documented in the HPI. ROS Other: All systems not noted in ROS Statement are negative. 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 Past Psychological History: Anxiety, Bipolar, Depression, Panic Disorder, PTSD, Schizoaffective Disorder Smoking Status: Current every day smoker Past Alcohol Use History: None Reported Past Drug Use History: Marijuana - Past Family History Mother Family Medical History: No Reported History Father Family Medical History: No Reported History Additional Family Medical History / Comment(s): bipolar, sever seasonal allergies Brother(s) Family Medical History: No Reported History Sister(s) Family Medical History: No Reported History General Exam Limitations: no limitations General appearance: alert, in no apparent distress Head exam: Present: atraumatic, normocephalic, normal inspection Eye exam: Present: normal appearance, PERRL, EOMI. Absent: scleral icterus, conjunctival injection, periorbital swelling ENT exam: Present: normal exam, normal oropharynx, mucous membranes moist Neck exam: Present: normal inspection, full ROM. Absent: tenderness, meningismus, lymphadenopathy Respiratory exam: Present: normal lung sounds bilaterally. Absent: respiratory distress, wheezes, rales, rhonchi, stridor Cardiovascular Exam: Present: regular rate, normal rhythm, normal heart sounds. Absent: systolic murmur, diastolic murmur, rubs, gallop, clicks GI/Abdominal exam: Present: soft, normal bowel sounds. Absent: distended, tenderness, guarding, rebound, rigid Course Vital Signs 03/20/21 13:16 Temperature 97.9 F Pulse Rate 88 Respiratory 18 Rate Blood Pressure 114/88 O2 Sat by Pulse 97 Oximetry Medical Decision Making - Medical Decision Making Urinalysis is unremarkable. Patient's has a negative hCG. Patient will be advised to follow-up she is otherwise in stable condition return parameters discussed. - Lab Data Lab Results 03/20/21 03/20/21 Range/Units 13:27 13:27 Urine Color Light Yellow Urine Appearance Clear (Clear) Urine pH 7.5 (5.0-8.0) Ur Specific [place] 1.007 (1.001-1.035) Urine Protein Negative (Negative) Urine Glucose (UA) Negative (Negative) Urine Ketones Negative (Negative) Urine Blood Negative (Negative) Urine Nitrite Negative (Negative) Urine Bilirubin Negative (Negative) Urine Urobilinogen <2.0 (<2.0) mg/dL Ur Leukocyte Esterase Negative (Negative) Urine HCG, Qual Not Detected (Not Detectd) Disposition Clinical Impression: Urinary frequency, Delusion Disposition: HOME SELF-CARE Condition: Stable Instructions (If sedation given, give patient instructions): Urinary Urgency and Frequency (DC) Additional Instructions: Please return to the Emergency Department if symptoms worsen or any other concerns. Is patient prescribed a controlled substance at d/c from ED?: No Referrals: Lynne Doshi FNPBC [Primary Care Provider] - 1-2 days Time of Disposition: 13:48
== END 2021-03-20 15:39 | disposition home or self-care (01) ==
LOC: EC 13:09
DX: R35.0 Frequency of micturition (principal); F22 Delusional disorders; J45.909 Unspecified asthma, uncomplicated; K21.9 Gastro-esophageal reflux disease without esophagitis; F17.200 Nicotine dependence, unspecified, uncomplicated; F12.90 Cannabis use, unspecified, uncomplicated; Z79.899 Other long term (current) drug therapy; Z88.0 Allergy status to penicillin; Z88.2 Allergy status to sulfonamides; Z88.8 Allergy status to other drugs, medicaments and biological substances
CPT/HCPCS: 81003; 81025; 99283

== ENCOUNTER 2021-06-14 06:12 | Emergency (ER) | payer OTHER ==
[2021-06-14] MEDS ORDERED: FAMOTIDINE 20 MG/2 ML VIAL IV STA (06:17)
--- NOTE | 2021-06-14 06:22 | ED ---
General Adult HPI - General Stated complaint: abdominal pain Time Seen by Provider: 06/14/21 06:14 Source: RN notes reviewed - History of Present Illness Initial comments: 26-year-old female well known to this emergency department with a past medical history of asthma, GERD, kidney stones, hypertension, migraines, closed head injury presents to the emergency room for a chief complaint of abdominal pain. Patient states 3 hours ago she ate icy chips started to have upper abdominal pain. Patient unsure if she is . Patient denies nausea vomiting. Denies any lower abdominal pain. Denies diarrhea. Denies fevers. Patient does have an appointment with primary care today.Patient has no other complaints at this time including shortness of breath, chest pain, nausea or vomiting, headache, or visual changes. - Related Data Home Medications Medication Instructions Recorded Confirmed Emtricitabine/Tenofovir (Tdf) 1 tab PO DAILY@0800 12/14/20 12/14/20 [Truvada 200 mg-300 mg Tablet] Melatonin 6 mg PO HS@209912/14/20 12/14/20 OXcarbazepine [Trileptal] 300 mg PO BID@0800,209912/14/20 12/29/20 Raltegravir Potassium [Isentress] 400 mg PO BID@0800,209912/14/20 12/14/20 fluPHENAZine decanoate [Prolixin 37.5 mg IM [id number] 12/29/20 12/29/20 Decanoate] Allergies Allergy/AdvReac Type Severity Reaction Status Date / Time Penicillins Allergy Severe Anaphylaxis Verified 03/20/21 13:21 Sulfa (Sulfonamide Allergy Severe Anaphylaxis Verified 03/20/21 13:21 Antibiotics) diphenhydramine HCl Allergy Nausea Verified 03/20/21 13:21 [From Benadryl] lithium Allergy Unknown Verified 03/20/21 13:21 Review of Systems ROS Statement: Those systems with pertinent positive or pertinent negative responses have been documented in the HPI. ROS Other: All systems not noted in ROS Statement are negative. 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 Past Psychological History: Anxiety, Bipolar, Depression, Panic Disorder, PTSD, Schizoaffective Disorder Smoking Status: Current every day smoker Past Alcohol Use History: None Reported Past Drug Use History: Marijuana - Past Family History Mother Family Medical History: No Reported History Father Family Medical History: No Reported History Additional Family Medical History / Comment(s): bipolar, sever seasonal allergies Brother(s) Family Medical History: No Reported History Sister(s) Family Medical History: No Reported History General Exam General appearance: alert, in no apparent distress Head exam: Present: atraumatic Eye exam: Present: normal appearance, PERRL, EOMI. Absent: scleral icterus, conjunctival injection ENT exam: Present: normal exam, mucous membranes moist Neck exam: Present: normal inspection, full ROM. Absent: tenderness Respiratory exam: Present: normal lung sounds bilaterally. Absent: respiratory distress, wheezes Cardiovascular Exam: Present: regular rate, normal rhythm, normal heart sounds GI/Abdominal exam: Present: soft, normal bowel sounds. Absent: distended, tenderness, guarding, rebound Neurological exam: Present: alert Course Vital Signs 06/14/21 06:14 Temperature 98.1 F Pulse Rate 98 Respiratory 17 Rate Blood Pressure 116/72 O2 Sat by Pulse 99 Oximetry Medical Decision Making - Medical Decision Making Vitals are stable. Patient is well appearing. Physical exam reveals a nontender, non acute abdomen. Patient was given Pepcid and GI cocktail and had significant improvement in symptoms. Urinalysis unremarkable. At this time given patient symptoms have resolved she can be discharged home to follow up with primary care. She has an appointment today. She will return for any worsening symptoms. - Lab Data Lab Results 06/14/21 06/14/21 Range/Units 06:22 06:22 Urine Color Yellow Urine Appearance Clear (Clear) Urine pH 6.5 (5.0-8.0) Ur Specific [place] 1.018 (1.001-1.035) Urine Protein Trace H (Negative) Urine Glucose (UA) Negative (Negative) Urine Ketones Negative (Negative) Urine Blood Negative (Negative) Urine Nitrite Negative (Negative) Urine Bilirubin Negative (Negative) Urine Urobilinogen <2.0 (<2.0) mg/dL Ur Leukocyte Esterase Small H (Negative) Urine RBC 2 (0-5) /hpf Urine WBC 6 H (0-5) /hpf Ur Squamous Epith Cells 1 (0-4) /hpf Urine Mucus Occasional H (None) /hpf Urine HCG, Qual Not Detected (Not Detectd) Disposition Clinical Impression: Gastritis, Abdominal pain Disposition: HOME SELF-CARE Condition: Good Instructions (If sedation given, give patient instructions): Abdominal Pain (ED) Additional Instructions: Please follow-up with your doctor today at your appointment. Return for any worsening symptoms. Is patient prescribed a controlled substance at d/c from ED?: No Referrals: Lauren Denson MD [Primary Care Provider] - 1-2 days Time of Disposition: 07:15
[2021-06-14 06:23] VITALS: BP 116/72; PULSE 98; RESP 17; TEMP 98.1
[2021-06-14] MEDS ORDERED: MAG HYDROX/AL HYDROX/SIMETH 30 ML, HYOSCYAMINE ELIXIR 10 ML, LIDOCAINE VISCOUS 2% 10 ML PO STA ×3 (06:33)
[2021-06-14 06:48] LABS: Appearance,Urine Clear (Clear); Bilirubin,Urine Negative (Negative); Blood,Urine Negative (Negative); Color,Urine Yellow; Glucose,Urine (UA) Negative (Negative); Ketones,Urine Negative (Negative); Leukocyte Esterase,Urine Small (Negative); Mucus,Urine Occasional /hpf; Nitrite,Urine Negative (Negative); PH, Urine 6.5 (5.0-8.0); Protein,Urine Trace (Negative); RBC,Urine 2 /hpf (0-5); Specific Gravity,Urine 1.018 (1.001-1.035); Squamous Epithelial Cell,Urine 1 /hpf (0-4); Urobilinogen,Urine <2.0 mg/dL (<2.0); WBC,Urine 6 /hpf (0-5)
[2021-06-15 13:28] LABS: C. trachomatis,PCR Negative (Neg,Equiv); Chlamydia trachomatis Source Urine; N. gonorrhoeae,PCR Negative (Neg,Equiv); Neisseria Source Urine
== END 2021-06-14 07:29 | disposition home or self-care (01) ==
LOC: EC 06:12
DX: K29.70 Gastritis, unspecified, without bleeding (principal); K21.9 Gastro-esophageal reflux disease without esophagitis; J45.909 Unspecified asthma, uncomplicated; F31.9 Bipolar disorder, unspecified; F41.9 Anxiety disorder, unspecified; F17.200 Nicotine dependence, unspecified, uncomplicated; F12.90 Cannabis use, unspecified, uncomplicated; Z79.899 Other long term (current) drug therapy; Z88.0 Allergy status to penicillin; Z88.2 Allergy status to sulfonamides; Z88.8 Allergy status to other drugs, medicaments and biological substances
CPT/HCPCS: 81001; 81025; 87491; 87591; 96374; 99284

== ENCOUNTER 2021-06-23 12:43 | Emergency (ER) | payer OTHER ==
[2021-06-23] MEDS ORDERED: cefTRIAXone 500 MG VIAL IM STA (13:33)
[2021-06-23] MEDS ORDERED: metroNIDAZOLE 500 MG TAB PO STA (13:33)
--- NOTE | 2021-06-23 13:37 | ED ---
General Adult HPI - General Chief complaint: Abdominal Pain Stated complaint: Abd pain Time Seen by Provider: 06/23/21 12:58 Source: patient, RN notes reviewed Mode of arrival: ambulatory Limitations: no limitations - History of Present Illness Initial comments: Patient is a 26 she'll female that presents to the emergency Department to receive antibiotics for a recent positive Trichomonas test. Patient notes she tested on Sunday and just got results. She notes she came to the emergency room for treatment. Patient was otherwise well-appearing. She denied any other symptoms or complaints. She was in no apparent distress or pain. She denied chest pain short of breath headache nausea vomiting diarrhea constipation fever fatigue chills. - Related Data Home Medications Medication Instructions Recorded Confirmed Emtricitabine/Tenofovir (Tdf) 1 tab PO DAILY@0800 12/14/20 12/14/20 [Truvada 200 mg-300 mg Tablet] Melatonin 6 mg PO HS@209912/14/20 12/14/20 OXcarbazepine [Trileptal] 300 mg PO BID@0800,209912/14/20 12/29/20 Raltegravir Potassium [Isentress] 400 mg PO BID@0800,209912/14/20 12/14/20 fluPHENAZine decanoate [Prolixin 37.5 mg IM [id number] 12/29/20 12/29/20 Decanoate] Previous Rx's Medication Instructions Recorded Doxycycline Monohydrate [Monodox] 100 mg PO Q12HR #14 cap 06/23/21 Allergies Allergy/AdvReac Type Severity Reaction Status Date / Time Penicillins Allergy Severe Anaphylaxis Verified 06/23/21 12:56 Sulfa (Sulfonamide Allergy Severe Anaphylaxis Verified 06/23/21 12:56 Antibiotics) diphenhydramine HCl Allergy Nausea Verified 06/23/21 12:56 [From Benadryl] lithium Allergy Unknown Verified 06/23/21 12:56 Review of Systems ROS Statement: Those systems with pertinent positive or pertinent negative responses have been documented in the HPI. ROS Other: All systems not noted in ROS Statement are negative. 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 Past Psychological History: Anxiety, Bipolar, Depression, Panic Disorder, PTSD, Schizoaffective Disorder Smoking Status: Current every day smoker Past Alcohol Use History: None Reported Past Drug Use History: Marijuana - Past Family History Mother Family Medical History: No Reported History Father Family Medical History: No Reported History Additional Family Medical History / Comment(s): bipolar, sever seasonal allergies Brother(s) Family Medical History: No Reported History Sister(s) Family Medical History: No Reported History General Exam Limitations: no limitations General appearance: alert, in no apparent distress, obese Head exam: Present: atraumatic, normocephalic, normal inspection Eye exam: Present: normal appearance, PERRL, EOMI. Absent: scleral icterus, conjunctival injection, periorbital swelling ENT exam: Present: normal exam, mucous membranes moist Neck exam: Present: normal inspection Respiratory exam: Present: normal lung sounds bilaterally. Absent: respiratory distress, wheezes, rales, rhonchi, stridor Cardiovascular Exam: Present: regular rate, normal rhythm, normal heart sounds. Absent: systolic murmur, diastolic murmur, rubs, gallop, clicks GI/Abdominal exam: Present: soft, normal bowel sounds. Absent: distended, tenderness, guarding, rebound, rigid Extremities exam: Present: normal inspection, full ROM, normal capillary refill. Absent: tenderness, pedal edema, joint swelling, calf tenderness Neurological exam: Present: alert, oriented X3 Psychiatric exam: Present: normal affect, normal mood Skin exam: Present: warm, dry, intact, normal color. Absent: rash Course Vital Signs 06/23/21 12:53 Temperature 98.3 F Pulse Rate 87 Respiratory 16 Rate Blood Pressure 111/77 O2 Sat by Pulse 97 Oximetry Medical Decision Making - Medical Decision Making 26-year-old female positive for trichomonas here for antibiotics. 2 g of Flagyl, 500 mg of Rocephin ordered. Doxycycline sent to pharmacy. Patient is agreeable with discharge home and follow-up to primary care. Case discussed with Dr. Motley, patient discharge home. Disposition Clinical Impression: Trichomoniasis Disposition: HOME SELF-CARE Condition: Stable Instructions (If sedation given, give patient instructions): Trichomoniasis (ED) Additional Instructions: Please return to the Emergency Department if symptoms worsen or any other concerns. Follow-up with primary care 1-2 days. Take antibiotics as prescribed until complete. Prescriptions: Doxycycline Monohydrate [Monodox] 100 mg PO Q12HR #14 cap Is patient prescribed a controlled substance at d/c from ED?: No Referrals: Lauren Denson MD [Primary Care Provider] - 1-2 days Time of Disposition: 13:36
[2021-06-23 14:32] VITALS: BP 115/78; PULSE 78; RESP 17; TEMP 97.8
== END 2021-06-23 14:30 | disposition home or self-care (01) ==
LOC: EC 12:43
DX: A59.9 Trichomoniasis, unspecified (principal); E66.9 Obesity, unspecified; Z68.38 Body mass index [BMI] 38.0-38.9, adult; J45.909 Unspecified asthma, uncomplicated; K21.9 Gastro-esophageal reflux disease without esophagitis; F31.9 Bipolar disorder, unspecified; F41.9 Anxiety disorder, unspecified; F17.200 Nicotine dependence, unspecified, uncomplicated; F12.90 Cannabis use, unspecified, uncomplicated; Z79.899 Other long term (current) drug therapy; Z88.0 Allergy status to penicillin; Z88.2 Allergy status to sulfonamides; Z88.8 Allergy status to other drugs, medicaments and biological substances
CPT/HCPCS: 96372; 99283; J0696

== ENCOUNTER 2021-07-16 01:58 | Emergency (ER) | payer OTHER ==
[2021-07-16 02:06] VITALS: BP 129/81; PULSE 90; RESP 17; TEMP 97.9
--- NOTE | 2021-07-16 02:14 | ED ---
Psych HPI - General Chief Complaint: Recheck/Abnormal Lab/Rx Stated Complaint: Mental Health Time Seen by Provider: 07/16/21 02:01 Source: patient, EMS, RN notes reviewed, old records reviewed Mode of arrival: EMS Limitations: altered mental status (Psychosis) - History of Present Illness Initial Comments: This is a 26-year-old female well-known to our facility for evaluation. Patient presenting under the guise of possibility of . Patient states that she does not want baby to be in her any longer. Patient does have a known and long psychiatric history states that she can't breathe 60 due to the baby being in her body. Patient denies any other complaints but does make statement that she is she wants to kill herself secondary to being MD Complaint: suicidal ideation, feels depressed, altered mental status, other (psychosis) -: unknown Associated Psychiatric Symptoms: depression, suicidal ideation, racing thoughts Improves With: none Worsens With: none Context: not taking psychiatric medications, significant life stressor Associated Symptoms: denies other symptoms Treatments Prior to Arrival: placed on mental health hold If Self Harm: admits thoughts of self harm - Related Data Home Medications Medication Instructions Recorded Confirmed Emtricitabine/Tenofovir (Tdf) 1 tab PO DAILY@0800 12/14/20 12/14/20 [Truvada 200 mg-300 mg Tablet] Melatonin 6 mg PO HS@209912/14/20 12/14/20 OXcarbazepine [Trileptal] 300 mg PO BID@0800,209912/14/20 12/29/20 Raltegravir Potassium [Isentress] 400 mg PO BID@0800,209912/14/20 12/14/20 fluPHENAZine decanoate [Prolixin 37.5 mg IM [id number] 12/29/20 12/29/20 Decanoate] Previous Rx's Medication Instructions Recorded Doxycycline Monohydrate [Monodox] 100 mg PO Q12HR #14 cap 06/23/21 Allergies Allergy/AdvReac Type Severity Reaction Status Date / Time Penicillins Allergy Severe Anaphylaxis Verified 06/23/21 12:56 Sulfa (Sulfonamide Allergy Severe Anaphylaxis Verified 06/23/21 12:56 Antibiotics) diphenhydramine HCl Allergy Nausea Verified 06/23/21 12:56 [From Benadryl] lithium Allergy Unknown Verified 06/23/21 12:56 Review of Systems ROS Statement: Those systems with pertinent positive or pertinent negative responses have been documented in the HPI. ROS Other: All systems not noted in ROS Statement are negative. 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 Past Psychological History: Anxiety, Bipolar, Depression, Panic Disorder, PTSD, Schizoaffective Disorder Smoking Status: Current every day smoker Past Alcohol Use History: None Reported Past Drug Use History: Marijuana - Past Family History Mother Family Medical History: No Reported History Father Family Medical History: No Reported History Additional Family Medical History / Comment(s): bipolar, sever seasonal allergies Brother(s) Family Medical History: No Reported History Sister(s) Family Medical History: No Reported History General Exam Limitations: no limitations General appearance: alert, in no apparent distress, anxious Head exam: Present: atraumatic, normocephalic, normal inspection Eye exam: Present: normal appearance, PERRL, EOMI. Absent: scleral icterus, conjunctival injection, periorbital swelling ENT exam: Present: normal exam, mucous membranes moist Neck exam: Present: normal inspection. Absent: tenderness, meningismus, lymphadenopathy Respiratory exam: Present: normal lung sounds bilaterally. Absent: respiratory distress, wheezes, rales, rhonchi, stridor Cardiovascular Exam: Present: regular rate, normal rhythm, normal heart sounds. Absent: systolic murmur, diastolic murmur, rubs, gallop, clicks GI/Abdominal exam: Present: soft, normal bowel sounds. Absent: distended, tenderness, guarding, rebound, rigid Extremities exam: Present: normal inspection, full ROM, normal capillary refill. Absent: tenderness, pedal edema, joint swelling, calf tenderness Back exam: Present: normal inspection Neurological exam: Present: alert, oriented X3, CN II-XII intact Psychiatric exam: Present: normal affect, normal mood Skin exam: Present: warm, dry, intact, normal color. Absent: rash Course Vital Signs 07/16/21 01:59 Temperature 97.9 F Pulse Rate 90 Respiratory 17 Rate Blood Pressure 129/81 O2 Sat by Pulse 97 Oximetry - Reevaluation(s) Reevaluation #1: 07/16/21 02:14 Medical record is reviewed 07/16/21 05:32 Medically Clear for psychiatric evaluation Reevaluation #2: 07/16/21 05:32 Patient still complaining that she is even with negative test Reevaluation #3: 07/16/21 05:[address] she is happy with having a place to go and can be discharged Medical Decision Making - Medical Decision Making 26 female to the ER with now is having a Place to go. Patient can be discharged home - Lab Data Lab Results 07/16/21 07/16/21 Range/Units 02:16 02:16 Urine Color Yellow Urine Appearance Clear (Clear) Urine pH 6.5 (5.0-8.0) Ur Specific [place] 1.012 (1.001-1.035) Urine Protein Negative (Negative) Urine Glucose (UA) Negative (Negative) Urine Ketones Negative (Negative) Urine Blood Negative (Negative) Urine Nitrite Negative (Negative) Urine Bilirubin Negative (Negative) Urine Urobilinogen <2.0 (<2.0) mg/dL Ur Leukocyte Esterase Negative (Negative) Urine HCG, Qual Not Detected (Not Detectd) Disposition Clinical Impression: Psychosis, Adjustment reaction of adult life, Homelessness Disposition: HOME SELF-CARE Condition: Fair Instructions (If sedation given, give patient instructions): Mood Disorders (ED) Is patient prescribed a controlled substance at d/c from ED?: No Referrals: Lauren Denson MD [Primary Care Provider] - 1-2 days
[2021-07-16 02:23] LABS: Appearance,Urine Clear (Clear); Bilirubin,Urine Negative (Negative); Blood,Urine Negative (Negative); Color,Urine Yellow; Glucose,Urine (UA) Negative (Negative); Ketones,Urine Negative (Negative); Leukocyte Esterase,Urine Negative (Negative); Nitrite,Urine Negative (Negative); PH, Urine 6.5 (5.0-8.0); Protein,Urine Negative (Negative); Specific Gravity,Urine 1.012 (1.001-1.035); Urobilinogen,Urine <2.0 mg/dL (<2.0)
[2021-07-16] MEDS: fluPHENAZine DECANOATE 25 MG/ML 5ML MDV IM ONE (05:59)
== END 2021-07-16 06:09 | disposition home or self-care (01) ==
LOC: EC 01:58
DX: F29 Unspecified psychosis not due to a substance or known physiological condition (principal); F43.20 Adjustment disorder, unspecified; Z59.00 Homelessness unspecified; J45.909 Unspecified asthma, uncomplicated; G43.909 Migraine, unspecified, not intractable, without status migrainosus; F31.9 Bipolar disorder, unspecified; F41.0 Panic disorder [episodic paroxysmal anxiety]; F43.10 Post-traumatic stress disorder, unspecified; F25.9 Schizoaffective disorder, unspecified; F17.200 Nicotine dependence, unspecified, uncomplicated; F12.90 Cannabis use, unspecified, uncomplicated
CPT/HCPCS: 81003; 81025; 99285; 96372; J2680

== ENCOUNTER 2021-08-22 18:02 | Emergency (ER) | payer OTHER ==
[2021-08-22 18:37] VITALS: BP 107/74; PULSE 86; RESP 107; TEMP 98
[2021-08-22 19:13] LABS: Appearance,Urine Cloudy (Clear); Bacteria,Urine Few /hpf; Bilirubin,Urine Negative (Negative); Blood,Urine Large (Negative); Budding Yeast,Urine Occasional /hpf; Color,Urine Yellow; Glucose,Urine (UA) Negative (Negative); Ketones,Urine Negative (Negative); Leukocyte Esterase,Urine Moderate (Negative); Mucus,Urine Rare /hpf; Nitrite,Urine Negative (Negative); Protein,Urine Negative (Negative); RBC,Urine 2 /hpf (0-5); Specific Gravity,Urine 1.011 (1.001-1.035); Squamous Epithelial Cell,Urine 17 /hpf (0-4); Urobilinogen,Urine <2.0 mg/dL (<2.0); WBC,Urine 12 /hpf (0-5)
[2021-08-22] MEDS ORDERED: DOXYCYCLINE 100 MG CAP PO STA (20:16)
[2021-08-22] MEDS ORDERED: cefTRIAXone 500 MG VIAL IM STA (20:16)
[2021-08-22] MEDS ORDERED: metroNIDAZOLE 500 MG TAB PO STA (20:49)
--- NOTE | 2021-08-22 20:50 | ED ---
Female Urogenital HPI - General Chief complaint: Urogenital Stated complaint: Abd Pain Source: patient Mode of arrival: ambulatory Limitations: no limitations - History of Present Illness Initial comments: 26 year old female presents emergency room with concern for STDs. Patient is complaining of vaginal burning and discharge. States that she did have sexual contact with her partner who has similar symptoms. She denies any abnormal vaginal bleeding or discharge. No concern for . She denies any abdominal pain. No fevers. Denies any changes in her urination to include dysuria, hematuria or difficulty voiding. Denies diarrhea, constipation, melenic stools or hematochezia. No other alleviating, precipitating or modifying factors - Related Data Home Medications Medication Instructions Recorded Confirmed Emtricitabine/Tenofovir (Tdf) 1 tab PO DAILY@0800 12/14/20 12/14/20 [Truvada 200 mg-300 mg Tablet] Melatonin 6 mg PO HS@209912/14/20 12/14/20 OXcarbazepine [Trileptal] 300 mg PO BID@0800,209912/14/20 12/29/20 Raltegravir Potassium [Isentress] 400 mg PO BID@0800,209912/14/20 12/14/20 fluPHENAZine decanoate [Prolixin 37.5 mg IM [id number] 12/29/20 12/29/20 Decanoate] Previous Rx's Medication Instructions Recorded Doxycycline Monohydrate [Monodox] 100 mg PO Q12HR #14 cap 06/23/21 Doxycycline Hyclate 100 mg PO BID 10 Days #20 tab 08/22/21 Fluconazole [Diflucan] 150 mg PO ONCE #2 tab 08/22/21 Allergies Allergy/AdvReac Type Severity Reaction Status Date / Time Penicillins Allergy Severe Anaphylaxis Verified 08/22/21 18:35 Sulfa (Sulfonamide Allergy Severe Anaphylaxis Verified 08/22/21 18:35 Antibiotics) diphenhydramine HCl Allergy Nausea Verified 08/22/21 18:35 [From Benadryl] lithium Allergy Unknown Verified 08/22/21 18:35 Review of Systems ROS Statement: Those systems with pertinent positive or pertinent negative responses have been documented in the HPI. ROS Other: All systems not noted in ROS Statement are negative. 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 Past Psychological History: Anxiety, Bipolar, Depression, Panic Disorder, PTSD, Schizoaffective Disorder Smoking Status: Current every day smoker Past Alcohol Use History: None Reported Past Drug Use History: Marijuana - Past Family History Mother Family Medical History: No Reported History Father Family Medical History: No Reported History Additional Family Medical History / Comment(s): bipolar, sever seasonal allergies Brother(s) Family Medical History: No Reported History Sister(s) Family Medical History: No Reported History General Exam Limitations: no limitations Course Vital Signs 08/22/21 18:35 Temperature 98 F Pulse Rate 86 Respiratory 107 H Rate Blood Pressure 107/74 O2 Sat by Pulse 99 Oximetry Medical Decision Making - Medical Decision Making Upon arrival patient is placed into room 29. She is requesting to to her own genital swabs. She does provide a urine sample which demonstrates moderate leuk ocyte esterase, 17 squamous epithelial cells and 12 white blood cells. The patient is not symptomatic will not treat for UTI at this time. She is requesting treatment for chlamydia and gonorrhea. Patient does not want to wait for her Trichomonas result therefore she is additionally given 2 g of Flagyl. Prescription for doxycycline is sent to the pharmacy. Patient given 500 mg IM Rocephin and 1 dose of doxycycline emergency room. If she needs any further testing for sexually transmitted infections she needs help department. Recommended she abstain from intercourse until her symptoms improve. Return to the emergency room for any worsening symptoms. Patient discharged in stable condition - Lab Data Lab Results 08/22/21 08/22/21 08/22/21 Range/Units 18:48 18:48 20:52 Urine Color Yellow Urine Appearance Cloudy H (Clear) Urine pH 6.0 (5.0-8.0) Ur Specific [place] 1.011 (1.001-1.035) Urine Protein Negative (Negative) Urine Glucose (UA) Negative (Negative) Urine Ketones Negative (Negative) Urine Blood Large H (Negative) Urine Nitrite Negative (Negative) Urine Bilirubin Negative (Negative) Urine Urobilinogen <2.0 (<2.0) mg/dL Ur Leukocyte Esterase Moderate H (Negative) Urine RBC 2 (0-5) /hpf Urine WBC 12 H (0-5) /hpf Ur Squamous Epith Cells 17 H (0-4) /hpf Urine Bacteria Few H (None) /hpf Urine Mucus Rare H (None) /hpf Urine Yeast (Budding) Occasional H (None) /hpf Urine HCG, Qual Not Detected (Not Detectd) Trichomonas Ag (Rapid) Negative (Negative) Disposition Clinical Impression: STD exposure, Vaginal discharge Disposition: HOME SELF-CARE Condition: Stable Instructions (If sedation given, give patient instructions): Safe Sex (ED) Additional Instructions: You will be called with any abnormal results. Take the medications as prescribed and follow-up with your doctor in 2-4 days. Please abstain from sex until your symptoms are improved and your antibiotics are completed Prescriptions: Fluconazole [Diflucan] 150 mg PO ONCE #2 tab Doxycycline Hyclate 100 mg PO BID 10 Days #20 tab Is patient prescribed a controlled substance at d/c from ED?: No Referrals: None,Stated [Primary Care Provider] - 1-2 days Time of Disposition: 20:59
[2021-08-23 16:17] LABS: C. trachomatis,PCR Negative (Neg,Equiv); Chlamydia trachomatis Source Urine; N. gonorrhoeae,PCR Negative (Neg,Equiv); Neisseria Source Urine
== END 2021-08-22 21:15 | disposition home or self-care (01) ==
LOC: EC 18:02
DX: N89.8 Other specified noninflammatory disorders of vagina (principal); Z20.2 Contact with and (suspected) exposure to infections with a predominantly sexual mode of transmission; J45.909 Unspecified asthma, uncomplicated; K21.9 Gastro-esophageal reflux disease without esophagitis; F41.9 Anxiety disorder, unspecified; F31.9 Bipolar disorder, unspecified; F43.12 Post-traumatic stress disorder, chronic; F25.9 Schizoaffective disorder, unspecified; F17.200 Nicotine dependence, unspecified, uncomplicated; F12.90 Cannabis use, unspecified, uncomplicated; Z88.0 Allergy status to penicillin; Z88.2 Allergy status to sulfonamides; Z87.442 Personal history of urinary calculi
CPT/HCPCS: 99283; 96372; 81001; 81025; 87808; 87491; 87591; 87086; J0696

== ENCOUNTER → 2021-08-26 | Outpatient (CLI) | payer OTHER ==
--- NOTE | 2021-08-26 07:42 | US ---
EXAMINATION TYPE: US transvaginal DATE OF EXAM: 08/26/2021 COMPARISON: Multiple US CLINICAL HISTORY: R10.2 pelvic pain, Z71.1 person with feared. Pt states generalized ABD pain TECHNIQUE: Transvaginal (TV). Transvaginal sonographic images of the pelvis were acquired. Date of LMP: Pt states unknown EXAM MEASUREMENTS: Uterus: 7.2 x 2.5 x 3.6 cm Endometrial Stripe: 0.5 cm Right Ovary: 4.0 x 3.0 x 3.5 cm Left Ovary: 3.7 x 2.6 x 2.9 cm 1. Uterus: Anteverted wnl 2. Endometrium: wnl 3. Right Ovary: PCOS in appearance 4. Left Ovary: PCOS in appearance 5. Bilateral Adnexa: wnl 6. Posterior cul-de-sac: wnl IMPRESSION: Correlate for polycystic ovarian syndrome.
== END | disposition home or self-care (01) ==
LOC: RADUSWWP 07:02
PROVIDERS: ATTEND Nurse Practitioner Family
DX: R10.2 Pelvic and perineal pain (principal); R10.84 Generalized abdominal pain; Z71.1 Person with feared health complaint in whom no diagnosis is made
CPT/HCPCS: 76830

== ENCOUNTER 2022-01-24 14:52 | Emergency (ER) | payer OTHER ==
[2022-01-24 15:11] VITALS: BP 115/80; PULSE 85; RESP 18; TEMP 98.6
[2022-01-24] MEDS ORDERED: cefTRIAXone 1,000 MG VIAL (IM USE) IM STA (15:19)
[2022-01-24 15:39] LABS: Appearance,Urine Clear (Clear); Bilirubin,Urine Negative (Negative); Blood,Urine Large (Negative); Color,Urine Yellow; Glucose,Urine (UA) Negative (Negative); Ketones,Urine Negative (Negative); Leukocyte Esterase,Urine Small (Negative); Nitrite,Urine Negative (Negative); Protein,Urine Trace (Negative); RBC,Urine 1 /hpf (0-5); Specific Gravity,Urine 1.006 (1.001-1.035); Squamous Epithelial Cell,Urine 6 /hpf (0-4); Urobilinogen,Urine <2.0 mg/dL (<2.0); WBC,Urine 5 /hpf (0-5)
[2022-01-24] MEDS ORDERED: metroNIDAZOLE 500 MG TAB PO STA (15:49)
--- NOTE | 2022-01-24 15:53 | ED ---
Female Urogenital HPI - General Chief complaint: Urogenital Stated complaint: Abdominal Pain Time Seen by Provider: 01/24/22 15:17 Source: patient, RN notes reviewed Mode of arrival: ambulatory Limitations: no limitations - History of Present Illness Initial comments: 26-year-old female presents emergency Department with chief complaint of dysuria. Patient states she's had vaginal discharge, dysuria. 2 weeks. Patient states her boyfriend's office for Trichomonas and Chlamydia. Patient states she is symptomatic needs to be treated. Patient states she does not want a pelvic testing. Patient states that she has no abdominal pain no fevers or chills. Patient complaints. Denies any chance . Last Menstrual Period: 01/24/22 - Related Data Home Medications Medication Instructions Recorded Confirmed Emtricitabine/Tenofovir (Tdf) 1 tab PO DAILY@0800 12/14/20 12/14/20 [Truvada 200 mg-300 mg Tablet] Melatonin 6 mg PO HS@2100 12/14/20 12/14/20 OXcarbazepine [Trileptal] 300 mg PO BID@0800,209912/14/20 12/29/20 Raltegravir Potassium [Isentress] 400 mg PO BID@0800,2100 12/14/20 12/14/20 fluPHENAZine decanoate [Prolixin 37.5 mg IM [id number] 12/29/20 12/29/20 Decanoate] Previous Rx's Medication Instructions Recorded Doxycycline Monohydrate [Monodox] 100 mg PO Q12HR #14 cap 06/23/21 Doxycycline Hyclate 100 mg PO BID 10 Days #20 tab 08/22/21 Fluconazole [Diflucan] 150 mg PO ONCE #2 tab 08/22/21 Doxycycline [Vibramycin] 100 mg PO BID #14 capsule 01/24/22 Fluconazole [Diflucan] 150 mg PO ONCE #2 tab 01/24/22 Allergies Allergy/AdvReac Type Severity Reaction Status Date / Time Penicillins Allergy Severe Anaphylaxis Verified 01/24/22 15:11 Sulfa (Sulfonamide Allergy Severe Anaphylaxis Verified 01/24/22 15:11 Antibiotics) diphenhydramine HCl Allergy Nausea Verified 01/24/22 15:11 [From Benadryl] lithium Allergy Unknown Verified 01/24/22 15:11 Review of Systems ROS Statement: Those systems with pertinent positive or pertinent negative responses have been documented in the HPI. ROS Other: All systems not noted in ROS Statement are negative. 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 Past Psychological History: Anxiety, Bipolar, Depression, Panic Disorder, PTSD, Schizoaffective Disorder Smoking Status: Current every day smoker Past Alcohol Use History: None Reported Past Drug Use History: Marijuana - Past Family History Mother Family Medical History: No Reported History Father Family Medical History: No Reported History Additional Family Medical History / Comment(s): bipolar, sever seasonal allergies Brother(s) Family Medical History: No Reported History Sister(s) Family Medical History: No Reported History General Exam Limitations: no limitations General appearance: alert, in no apparent distress Head exam: Present: atraumatic, normocephalic, normal inspection Respiratory exam: Present: normal lung sounds bilaterally. Absent: respiratory distress, wheezes, rales, rhonchi, stridor Cardiovascular Exam: Present: regular rate, normal rhythm, normal heart sounds. Absent: systolic murmur, diastolic murmur, rubs, gallop, clicks GI/Abdominal exam: Present: soft, normal bowel sounds. Absent: distended, tenderness, guarding, rebound, rigid Course Vital Signs 01/24/22 15:08 Temperature 98.6 F Pulse Rate 85 Respiratory 18 Rate Blood Pressure 115/80 O2 Sat by Pulse 98 Oximetry Medical Decision Making - Medical Decision Making Patient was given Rocephin, doxycycline, Flagyl. Patient did have testing sent out. Patient will return for worsening change in symptoms. - Lab Data Lab Results 01/24/22 Range/Units 15:21 Urine HCG, Qual Not Detected (Not Detectd) Disposition Clinical Impression: STD (sexually transmitted disease), Dysuria Disposition: HOME SELF-CARE Condition: Stable Instructions (If sedation given, give patient instructions): Sexually Transmitted Diseases (ED) Additional Instructions: Please return to the Emergency Department if symptoms worsen or any other concerns. Prescriptions: Fluconazole [Diflucan] 150 mg PO ONCE #2 tab Doxycycline [Vibramycin] 100 mg PO BID #14 capsule Is patient prescribed a controlled substance at d/c from ED?: No Referrals: Lauren Denson MD [Primary Care Provider] - 1-2 days Time of Disposition: 15:53
[2022-01-25 13:20] LABS: C. trachomatis,PCR Negative (Neg,Equiv); Chlamydia trachomatis Source Urine; N. gonorrhoeae,PCR Negative (Neg,Equiv); Neisseria Source Urine
== END 2022-01-24 16:31 | disposition home or self-care (01) ==
LOC: EC 14:52
DX: A64 Unspecified sexually transmitted disease (principal); R30.0 Dysuria; J45.909 Unspecified asthma, uncomplicated; K21.9 Gastro-esophageal reflux disease without esophagitis; F41.9 Anxiety disorder, unspecified; F31.9 Bipolar disorder, unspecified; F17.200 Nicotine dependence, unspecified, uncomplicated; F12.90 Cannabis use, unspecified, uncomplicated; Z88.0 Allergy status to penicillin; Z88.2 Allergy status to sulfonamides; Z91.048 Other nonmedicinal substance allergy status; Z88.8 Allergy status to other drugs, medicaments and biological substances; Z79.899 Other long term (current) drug therapy
CPT/HCPCS: 99283; 96372; 81001; 81025; 87491; 87591; J0696

== ENCOUNTER 2022-01-28 04:03 | Emergency (ER) | payer OTHER ==
[2022-01-28] MEDS ORDERED: FLUCONAZOLE 150 MG TAB PO STA (04:37)
--- NOTE | 2022-01-28 04:37 | ED ---
Recheck HPI - General Chief Complaint: Abdominal Pain Stated Complaint: Abd Pain Time Seen by Provider: 01/28/22 04:10 Source: patient, RN notes reviewed, old records reviewed Mode of arrival: ambulatory Limitations: no limitations - History of Present Illness Initial Comments: This is a 26-year-old female to the emergency department for evaluation. Kristopher gilbert presents today for evaluation regards to recheck of possible STI. Patient concern she was possibly can have asked Last time she was in the hospital. Patient lost her antibiotics and presents DF for evaluation. Patient has no other significant complaints currently MD Complaint: abnormal lab Returns Today for: persistent/worsening pain related to initial visit Symptoms Since Prior Visit: worsening pain Context: ran out of medication Associated Symptoms: none Treatments Prior to Arrival: other medications, Given Antibiotics on, Given Pain Meds on - Related Data Home Medications Medication Instructions Recorded Confirmed Emtricitabine/Tenofovir (Tdf) 1 tab PO DAILY@0800 12/14/20 12/14/20 [Truvada 200 mg-300 mg Tablet] Melatonin 6 mg PO HS@209912/14/20 12/14/20 OXcarbazepine [Trileptal] 300 mg PO BID@0800,209912/14/20 12/29/20 Raltegravir Potassium [Isentress] 400 mg PO BID@0800,209912/14/20 12/14/20 fluPHENAZine decanoate [Prolixin 37.5 mg IM [id number] 12/29/20 12/29/20 Decanoate] Previous Rx's Medication Instructions Recorded Doxycycline Monohydrate [Monodox] 100 mg PO Q12HR #14 cap 06/23/21 Doxycycline Hyclate 100 mg PO BID 10 Days #20 tab 08/22/21 Fluconazole [Diflucan] 150 mg PO ONCE #2 tab 08/22/21 Doxycycline [Vibramycin] 100 mg PO BID #14 capsule 01/24/22 Fluconazole [Diflucan] 150 mg PO ONCE #2 tab 01/24/22 Allergies Allergy/AdvReac Type Severity Reaction Status Date / Time Penicillins Allergy Severe Anaphylaxis Verified 01/28/22 04:09 Sulfa (Sulfonamide Allergy Severe Anaphylaxis Verified 01/28/22 04:09 Antibiotics) diphenhydramine HCl Allergy Nausea Verified 01/28/22 04:09 [From Benadryl] lithium Allergy Unknown Verified 01/28/22 04:09 Review of Systems ROS Statement: Those systems with pertinent positive or pertinent negative responses have been documented in the HPI. ROS Other: All systems not noted in ROS Statement are negative. 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 Past Psychological History: Anxiety, Bipolar, Depression, Panic Disorder, PTSD, Schizoaffective Disorder Smoking Status: Current every day smoker Past Alcohol Use History: None Reported Past Drug Use History: Marijuana - Past Family History Mother Family Medical History: No Reported History Father Family Medical History: No Reported History Additional Family Medical History / Comment(s): bipolar, sever seasonal allergies Brother(s) Family Medical History: No Reported History Sister(s) Family Medical History: No Reported History General Exam Limitations: no limitations General appearance: alert, in no apparent distress Head exam: Present: atraumatic, normocephalic, normal inspection Eye exam: Present: normal appearance, PERRL, EOMI. Absent: scleral icterus, conjunctival injection, periorbital swelling ENT exam: Present: normal exam, mucous membranes moist Neck exam: Present: normal inspection. Absent: tenderness, meningismus, lymphadenopathy Respiratory exam: Present: normal lung sounds bilaterally. Absent: respiratory distress, wheezes, rales, rhonchi, stridor Cardiovascular Exam: Present: regular rate, normal rhythm, normal heart sounds. Absent: systolic murmur, diastolic murmur, rubs, gallop, clicks GI/Abdominal exam: Present: soft, normal bowel sounds. Absent: distended, tenderness, guarding, rebound, rigid Extremities exam: Present: normal inspection, full ROM, normal capillary refill. Absent: tenderness, pedal edema, joint swelling, calf tenderness Back exam: Present: normal inspection Neurological exam: Present: alert, oriented X3, CN II-XII intact Psychiatric exam: Present: normal affect, normal mood Skin exam: Present: warm, dry, intact, normal color. Absent: rash Course Vital Signs 01/28/22 04:03 Temperature 98.0 F Pulse Rate 81 Respiratory 18 Rate Blood Pressure 103/72 O2 Sat by Pulse 99 Oximetry - Reevaluation(s) Reevaluation #1: 01/28/22 04:36 Medical records reviewed Reevaluation #2: 01/28/22 04:36 Patient informed of results and questions answered Reevaluation #3: 01/28/22 04:36 Patient agrees to Diflucan and discharged Medical Decision Making - Medical Decision Making 26 female DF for evaluation likely [place] infection from being on some antibiotics. Patient will be given Diflucan and can be discharged home Disposition Clinical Impression: Vaginal yeast infection Disposition: HOME SELF-CARE Condition: Good Instructions (If sedation given, give patient instructions): Yeast Infection (ED) Is patient prescribed a controlled substance at d/c from ED?: No Referrals: Lauren Denson MD [Primary Care Provider] - 1-2 days
[2022-01-28 05:09] VITALS: BP 103/72; PULSE 81; RESP 18; TEMP 98
== END 2022-01-28 05:03 | disposition home or self-care (01) ==
LOC: EC 04:03
DX: B37.3 Candidiasis of vulva and vagina (principal); J45.909 Unspecified asthma, uncomplicated; K21.9 Gastro-esophageal reflux disease without esophagitis; Z79.83 Long term (current) use of bisphosphonates; Z88.0 Allergy status to penicillin; Z88.2 Allergy status to sulfonamides; Z88.8 Allergy status to other drugs, medicaments and biological substances; Z91.048 Other nonmedicinal substance allergy status
CPT/HCPCS: 99283

== ENCOUNTER 2022-01-31 12:16 | Inpatient (IN) | payer MEDICAID, OTHER ==
[2022-01-31 13:13] LABS: Appearance,Urine Clear (Clear); Bacteria,Urine Rare /hpf; Bilirubin,Urine Negative (Negative); Blood,Urine Moderate (Negative); Color,Urine Colorless; Glucose,Urine (UA) Negative (Negative); Ketones,Urine Negative (Negative); Leukocyte Esterase,Urine Negative (Negative); Nitrite,Urine Negative (Negative); Protein,Urine Negative (Negative); RBC,Urine <1 /hpf (0-5); Specific Gravity,Urine 1.002 (1.001-1.035); Squamous Epithelial Cell,Urine 1 /hpf (0-4); Urobilinogen,Urine <2.0 mg/dL (<2.0); WBC,Urine 1 /hpf (0-5)
[2022-01-31 13:23] LABS: Amphetamine Screen,Urine Not Detected (NotDetected); Barbiturate Screen,Urine Not Detected (NotDetected); Benzodiazepines Screen,Urine Not Detected (NotDetected); Cocaine Screen,Urine Not Detected (NotDetected); Methadone Screen, Urine Not Detected (NotDetected); Opiate Screen,Urine Not Detected (NotDetected); Oxycodone Screen, Urine Not Detected (NotDetected); Phencyclidine Screen,Urine Not Detected (NotDetected); Tricyclic Antidepressant,Urine Not Detected (NotDetected); Urn Cannabinoid Scrn Detected (NotDetected)
--- NOTE | 2022-01-31 13:28 | ED ---
General Adult HPI - General Source: patient, RN notes reviewed, old records reviewed Mode of arrival: ambulatory Limitations: no limitations <Alfredito Motley - Last Filed: 01/31/22 13:25> <Pasha Zhang - Last Filed: 01/31/22 18:10> - General Chief complaint: Psychiatric Symptoms Stated complaint: EPS Time Seen by Provider: 01/31/22 12:36 - History of Present Illness Initial comments: 26-year-old female presenting for mental health evaluation. Patient states that she was at a department store when she developed watery vaginal discharge and she states that she is currently and that she knows she is because she can feel the arms and legs of the baby. She is laughing hysterically at the time my evaluation. Patient did complain of some abdominal pain which is chronic. No dysuria. No fever. No vomiting. (Alfredito Motley) - Related Data Home Medications Medication Instructions Recorded Confirmed Emtricitabine/Tenofovir (Tdf) 1 tab PO DAILY 12/14/20 01/31/22 [Truvada 200 mg-300 mg Tablet] fluPHENAZine decanoate [Prolixin 37.5 mg IM Q14D 12/29/20 01/31/22 Decanoate] Albuterol Inhaler [Ventolin Hfa 2 puff INHALATION RT-Q6H PRN 01/31/22 01/31/22 Inhaler] Cetirizine HCl [Zyrtec] 10 mg PO DAILY PRN 01/31/22 01/31/22 Fluconazole [Diflucan] 150 mg PO DIRECTED 01/31/22 01/31/22 Fluticasone Nasal [place] [Flonase 2 spr EA NOSTRIL HS 01/31/22 01/31/22 Nasal [place]] Fluticasone Propionate 2 puff INHALATION RT-BID 01/31/22 01/31/22 [Fluticasone Propionate Hfa 110 MCG (Inhaler)] Mirtazapine [Remeron] 15 mg PO HS 01/31/22 01/31/22 Nicotine 14Mg/24Hr Patch [Habitrol 1 patch TRANSDERM DAILY 01/31/22 01/31/22 14Mg/24Hr Patch] QUEtiapine [SEROquel] 100 mg PO HS 01/31/22 01/31/22 Previous Rx's Medication Instructions Recorded Doxycycline [Vibramycin] 100 mg PO BID #14 capsule 01/24/22 Allergies Allergy/AdvReac Type Severity Reaction Status Date / Time Penicillins Allergy Severe Anaphylaxis Verified 01/31/22 14:26 Sulfa (Sulfonamide Allergy Severe Anaphylaxis Verified 01/31/22 14:26 Antibiotics) diphenhydramine HCl Allergy Nausea Verified 01/31/22 14:26 [From Benadryl] lithium Allergy Unknown Verified 01/31/22 14:26 Review of Systems ROS Other: All systems not noted in ROS Statement are negative. <Alfredito Motley - Last Filed: 01/31/22 13:25> ROS Other: All systems not noted in ROS Statement are negative. <Pasha Zhang - Last Filed: 01/31/22 18:10> ROS Statement: Those systems with pertinent positive or pertinent negative responses have been documented in the HPI. 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 Past Psychological History: Anxiety, Bipolar, Depression, Panic Disorder, PTSD, Schizoaffective Disorder Smoking Status: Current every day smoker Past Alcohol Use History: None Reported Past Drug Use History: Marijuana - Past Family History Mother Family Medical History: No Reported History Father Family Medical History: No Reported History Additional Family Medical History / Comment(s): bipolar, sever seasonal allergies Brother(s) Family Medical History: No Reported History Sister(s) Family Medical History: No Reported History <Alfredito Motley - Last Filed: 01/31/22 13:25> General Exam Limitations: no limitations General appearance: alert Head exam: Present: atraumatic, normocephalic Eye exam: Present: normal appearance, PERRL ENT exam: Present: mucous membranes moist Neck exam: Present: full ROM Respiratory exam: Present: normal lung sounds bilaterally. Absent: respiratory distress, wheezes Cardiovascular Exam: Present: regular rate, normal rhythm GI/Abdominal exam: Present: soft. Absent: distended, tenderness, guarding, rebound Extremities exam: Present: normal inspection, normal capillary refill Neurological exam: Present: alert. Absent: motor sensory deficit Psychiatric exam: Present: other (Delusional) Skin exam: Present: warm, dry, intact. Absent: cyanosis, diaphoretic <Alfredito Motley - Last Filed: 01/31/22 13:25> Course <Alfredito Motley - Last Filed: 01/31/22 13:25> Vital Signs 01/31/22 12:27 Temperature 97.3 F L Pulse Rate 105 H Respiratory 18 Rate Blood Pressure 108/68 O2 Sat by Pulse 99 Oximetry - Reevaluation(s) Reevaluation #1: 01/31/22 13:27 Patient cleared for EPS. (Alfredito Motley) Medical Decision Making <Pasha Zhang - Last Filed: 01/31/22 18:10> - Medical Decision Making The patient's care signed out to me by previous shift physician, Dr. Mueller. Briefly, patient 26-year-old female presents to the emergency department for mental health evaluation. She did complained to triage about vaginal discharge and stable chronic abdominal pain. Plan sign out was to follow up with EPS recommendations. Patient is evaluated by EPS and recommended inpatient psychiatric admission. Patient evaluated at bedside and found to be stable. Patient continues to have delusional taking in behavior. (Pasha Zhang) - Lab Data Lab Results 01/31/22 01/31/22 Range/Units 13:06 13:06 Urine Color Colorless Urine Appearance Clear (Clear) Urine pH 7.0 (5.0-8.0) Ur Specific [place] 1.002 (1.001-1.035) Urine Protein Negative (Negative) Urine Glucose (UA) Negative (Negative) Urine Ketones Negative (Negative) Urine Blood Moderate H (Negative) Urine Nitrite Negative (Negative) Urine Bilirubin Negative (Negative) Urine Urobilinogen <2.0 (<2.0) mg/dL Ur Leukocyte Esterase Negative (Negative) Urine RBC <1 (0-5) /hpf Urine WBC 1 (0-5) /hpf Ur Squamous Epith Cells 1 (0-4) /hpf Urine Bacteria Rare H (None) /hpf Urine HCG, Qual Not Detected (Not Detectd) Urine Opiates Screen Not Detected (NotDetected) Ur Oxycodone Screen Not Detected (NotDetected) Urine Methadone Screen Not Detected (NotDetected) Ur Propoxyphene Screen Not Detected (NotDetected) Ur Barbiturates Screen Not Detected (NotDetected) U Tricyclic Antidepress Not Detected (NotDetected) Ur Phencyclidine Scrn Not Detected (NotDetected) Ur Amphetamines Screen Not Detected (NotDetected) U Methamphetamines Scrn Not Detected (NotDetected) U Benzodiazepines Scrn Not Detected (NotDetected) Urine Cocaine Screen Not Detected (NotDetected) U Marijuana (THC) Screen Detected H (NotDetected) Disposition <Alfredito Motley N - Last Filed: 01/31/22 13:25> Decision Time: 18:10 <Pasha Zhang - Last Filed: 01/31/22 18:10> Clinical Impression: Psychosis Disposition: ADMITTED IP TO THIS [facility] Condition: Fair Referrals: Lauren Denson MD [Primary Care Provider] - 1-2 days
[2022-01-31] MEDS ORDERED: ALBUTEROL INHALER 60 PUFF/8 GM INHALER (MHU) INHALATION PRN (23:00)
[2022-01-31] MEDS ORDERED: LORazepam 1 MG TAB PO PRN (23:03)
[2022-01-31] MEDS ORDERED: MAGNESIUM HYDROXIDE 2,400 MG/10 ML CUP PO PRN (23:03)
[2022-01-31] MEDS ORDERED: LORazepam 1 MG/0.5 ML VIAL IM PRN (23:13)
[2022-01-31] MEDS ORDERED: MIRTAZAPINE 15 MG TAB PO SCH (23:15)
[2022-01-31] MEDS ORDERED: QUEtiapine 100 MG TAB PO SCH (23:15)
[2022-02-01] MEDS ORDERED: EMTRICITABINE/TENOFOVIR 200MG/300MG PO SCH (09:00)
[2022-02-01] MEDS: FLUTICASONE 110 MCG INHALER INHALATION SCH ×2 (09:27→23:40)
[2022-02-01] MEDS: NICOTINE 14MG/24HR PATCH TRANSDERM SCH ×2 (09:27→15:08)
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
[2022-02-01] MEDS: HALOPERIDOL LACTATE 5 MG/ML 1 ML VIAL IM PRN (13:42)
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
[2022-02-01] MEDS ORDERED: chlorproMAZINE 25 MG TAB PO PRN (13:55)
[2022-02-01] MEDS ORDERED: chlorproMAZINE 25 MG/ML 2 ML AMP IM STA (13:56)
--- NOTE | 2022-02-01 14:21 | P.MHFACE ---
Face to Face Restrain/Seclus - Evaluation Patient's Immediate Situation: Endangers self safety, Endangers others' safety, Endangers staff safety, Violent behavior Patient's Reaction to the Intervention: Uncooperative, Angry, Belligerent, Aggressive, Combative, Restless, Resistive to care Patient's Medical & Behavioral Condition: Awake, Agitated, Homicidal thoughts Need to Continue or Terminate Restraint or Seclusion: Continue Face to Face Eval of Restraint Date: 02/01/22 Face to Face Eval of Restraint Time: 14:00
[2022-02-01] MEDS: ACETAMINOPHEN TAB 325 MG TAB PO PRN (18:58)
[2022-02-01] MEDS: LORazepam 1 MG TAB PO PRN (18:58)
[2022-02-01] MEDS: FLUTICASONE 50MCG/SPRAY NASAL 16GM EA NOSTRIL SCH (20:41)
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
[2022-02-02] MEDS: FLUTICASONE 110 MCG INHALER INHALATION SCH ×2 (12:57→20:23)
[2022-02-02] MEDS: NICOTINE 14MG/24HR PATCH TRANSDERM SCH (12:58)
[2022-02-02] MEDS: ACETAMINOPHEN TAB 325 MG TAB PO PRN ×2 (15:22→20:25)
[2022-02-02] MEDS: chlorproMAZINE 25 MG TAB PO PRN (15:23)
[2022-02-02] MEDS: FLUTICASONE 50MCG/SPRAY NASAL 16GM EA NOSTRIL SCH (20:23)
[2022-02-02] MEDS: haloperidoL 5 MG TAB PO PRN (20:24)
[2022-02-02] MEDS: LORazepam 1 MG TAB PO PRN (20:24)
[2022-02-03] MEDS: FLUTICASONE 110 MCG INHALER INHALATION SCH ×2 (08:31→21:11)
[2022-02-03] MEDS: NICOTINE 14MG/24HR PATCH TRANSDERM SCH (08:31)
[2022-02-03 08:36] LABS: Basophils # (A) 0.1 k/uL (0-0.2); Basophils % (A) 1 %; Eosinophils # (A) 0.3 k/uL (0-0.7); Eosinophils % (A) 4 %; HCT 41.1 % (34.0-46.0); HGB 13.7 gm/dL (11.4-16.0); Lymphocytes # (A) 2.2 k/uL (1.0-4.8); Lymphocytes % (A) 32 %; MCH 30.1 pg (25.0-35.0); MCHC 33.4 g/dL (31.0-37.0); MCV 90.3 fL (80.0-100.0); Mean Platelet Volume 9.6; Monocytes # (A) 0.4 k/uL (0-1.0); Monocytes % (A) 5 %; Neutrophils # (A) 3.8 k/uL (1.3-7.7); Neutrophils % (A) 55 %; Platelet Count 189 k/uL (150-450); RBC 4.55 m/uL (3.80-5.40); RDW 13.5 % (11.5-15.5); WBC 6.9 k/uL (3.8-10.6)
[2022-02-03 09:00] LABS: ALT 32 U/L (4-34); AST 33 U/L (14-36); African American GFR (CKD) >90 (>60 ml/min/1.73 sqM); Albumin 3.6 g/dL (3.5-5.0); Alkaline Phosphatase 72 U/L (38-126); Anion Gap 7 mmol/L; Blood Urea Nitrogen 8 mg/dL (7-17); Calcium 8.5 mg/dL (8.4-10.2); Carbon Dioxide 24 mmol/L (22-30); Chloride 107 mmol/L (98-107); Glucose 89 mg/dL (74-99); Non-African American GFR(CKD) >90 (>60 ml/min/1.73 sqM); Potassium 4.4 mmol/L (3.5-5.1); Sodium 138 mmol/L (137-145); Total Bilirubin 0.2 mg/dL (0.2-1.3); Total Protein 6.2 g/dL (6.3-8.2)
[2022-02-03 14:38] LABS: Chol/HDL Ratio 4.37 Ratio; LDL Cholesterol,Calculated 90.5 mg/dL (0.0-131.0)
[2022-02-03] MEDS: ACETAMINOPHEN TAB 325 MG TAB PO PRN (17:40)
[2022-02-03] MEDS: MAG HYDROX/AL HYDROX/SIMETH 30 ML CUP PO PRN (17:41)
[2022-02-03] MEDS: LORazepam 1 MG TAB PO PRN (17:41)
[2022-02-03] MEDS: haloperidoL 5 MG TAB PO PRN (17:41)
[2022-02-03] MEDS: chlorproMAZINE 25 MG TAB PO PRN (17:56)
--- NOTE | 2022-02-03 20:17 | P.PN ---
Progress Note - Text Progress Note Date: 02/03/22 Interval History: Patient was seen resting in her room and was agreeable to participating in assessment. She remains delusional and talking about she was admitted because she believes herself to be and nobody has done any testing. She continues to report that she should not have been admitted to the psychiatric unit as she is only present in the hospital because of stomach pain. She denies SI/HI, AVH. She received Thorazine 50 mg po x 1 and Ativan 2 mg po x 1 due psychosis and agitation, was actively attending to internal stimuli and intrusive. Mental Status Exam: General Appearance: Patient is currently in her room without agitated behavior, obese female, in casual attire. Orientation: She is alert, oriented to person, place, time. Behavior: Patient is currently not agitated, but was agitated earlier today. Speech: Non-pressured, but intense. Mood/Affect: She reports good mood, affect is odd/intense. Suicidality/Homicidality: She denies suicidal and homicidal ideations, plan or intent. Perceptions: She denies auditory or visual hallucinations. Thought content: Paranoid delusions Thought process: Perseverative Memory and concentration: Intact for purposes of this assessment. Judgment and insight: Very poor Assessment Schizoaffective disorder, bipolar type Borderline personality disorder Cannabis use disorder Cocaine use disorder, by history Plan: -Patient continues to meet criteria for inpatient psychiatric admission for symptom stabilization and safety. The patient has been petitioned and certified. -Medications: Increase Prolixin 2.5 mg po to TID for psychosis and mood stabilization. Her next dose of Prolixing decanoate is scheduled for 37.5 mg IM on 02/13/2022. -When necessary Ativan and Thorazine for agitation/aggression. -NRT - nicotine patch -SW on board for discharge planning. Encouraged the patient to participate in milieu.
[2022-02-03] MEDS: FLUTICASONE 50MCG/SPRAY NASAL 16GM EA NOSTRIL SCH (21:12)
[2022-02-04] MEDS: NICOTINE 14MG/24HR PATCH TRANSDERM SCH (08:13)
[2022-02-04] MEDS: FLUTICASONE 50MCG/SPRAY NASAL 16GM EA NOSTRIL SCH ×2 (08:16→20:32)
[2022-02-04] MEDS: FLUTICASONE 110 MCG INHALER INHALATION SCH ×2 (08:56→20:30)
[2022-02-04] MEDS: LORazepam 1 MG TAB PO PRN (10:41)
[2022-02-04] MEDS: haloperidoL 5 MG TAB PO PRN (10:41)
[2022-02-04] MEDS: HALOPERIDOL LACTATE 5 MG/ML 1 ML VIAL IM PRN (16:59)
[2022-02-04] MEDS: LORazepam 1 MG/0.5 ML VIAL IM PRN (16:59)
[2022-02-04] MEDS: MAG HYDROX/AL HYDROX/SIMETH 30 ML CUP PO PRN (17:05)
[2022-02-04] MEDS: ACETAMINOPHEN TAB 325 MG TAB PO PRN (17:05)
--- NOTE | 2022-02-04 17:19 | P.PN ---
Progress Note - Text Progress Note Date: 02/04/22 Interval History: Patient was seen screaming in the hallways, demanding that she be discharged, stating she was admitted to a psychiatric hospital for abdominal pain, and that she has not seen a doctor in 6 days (she has been seen daily by doctors). Patient went to her room. I found patient in her room talking to her nurse, and she agreed to meet with me in the office with a nurse present. She is irritable, but does not become violent. Her affect is odd, her thoughts are somewhat concrete. She reports she does not like the Prolixin because she becomes angry on it, and states she did better on Abilify. Chart reviewed, and she was on Abilify Maintana for some time, and has also tried Clozapine previously which she refuses to take. She would like to restart the Abilify since this offers her mood stabilization, reports Abilify has worked much better for her in the past. She remains delusional but is modestly improving. She received Haldol 5 mg po x 1 and Ativan 2 mg po x 1 earlier today for psychosis and agitation. She received another Haldol 5 mg IM x 1 and Ativan 2 mg IM x 1 for agitation this afternoon. Mental Status Exam: General Appearance: Patient is an obese female, dressed in casual attire. Orientation: She is alert, oriented to person, place, time. Behavior: Patient is currently agitated, yelling, but does not become violent. She received Haldol/Ativan IM as described above. Speech: Non-pressured, but intense. Mood/Affect: Irritable, affect is odd/intense. Suicidality/Homicidality: She denies suicidal and homicidal ideations, plan or intent. Perceptions: She denies auditory or visual hallucinations, but appears to be attending to internal stimuli. Thought content: Paranoid delusions, somatic delusions Thought process: Perseverative, somewhat concrete Memory and concentration: Intact for purposes of this assessment. Judgment and insight: Very poor Assessment Schizoaffective disorder, bipolar type Borderline personality disorder Cannabis use disorder Cocaine use disorder, by history Plan: -Patient continues to meet criteria for inpatient psychiatric admission for symptom stabilization and safety. The patient has been petitioned and certified. -Medications: Discontinue oral Prolixin 2.5 mg po TID due to patient preferring Abilify. I have reviewed her medications and she has previously failed a trial of Clozapine (reason unknown, she states she didn't like it). She will likely require two antipsychotics (typical and atypical) due to the severity of her symptoms. Will continue Prolixin decanoate 37.5 mg IM every 2 weeks, due on 02/13/2022.Will consider increasing to 50 mg IM if needed. Start Abilify 5 mg once today and increase to 5 mg BID starting tomorrow for psychosis and mood/stabilization. If she tolerates the Abilify, may consider switching to Abilify Maintena in addition to Prolixin decanoate. -When necessary Ativan and Thorazine for agitation/aggression. -NRT - nicotine patch -SW on board for discharge planning. Encouraged the patient to participate in milieu.
[2022-02-04] MEDS: ARIPiprazole 5 MG TAB PO SCH (20:31)
[2022-02-04] MEDS: chlorproMAZINE 25 MG TAB PO PRN (22:49)
[2022-02-05] MEDS: HALOPERIDOL LACTATE 5 MG/ML 1 ML VIAL IM PRN ×2 (00:20→22:50)
[2022-02-05] MEDS: LORazepam 1 MG/0.5 ML VIAL IM PRN ×2 (00:21→22:50)
[2022-02-05] MEDS: NICOTINE 14MG/24HR PATCH TRANSDERM SCH (10:45)
[2022-02-05] MEDS: ARIPiprazole 5 MG TAB PO SCH ×2 (10:45→20:20)
[2022-02-05] MEDS: FLUTICASONE 110 MCG INHALER INHALATION SCH ×2 (11:12→23:53)
[2022-02-05] MEDS: LORATADINE 10 MG TAB PO PRN (16:31)
--- NOTE | 2022-02-05 18:28 | P.PN ---
Progress Note - Text Progress Note Date: 02/05/22 Interval History: Patient was seen in the hallway and was agreeable to meet with this contract writer. Her mood is improved today, she is not irritable, does not become violent, does not yell. She reports difficulty falling asleep last night, and was given Thorazine 50 mg po x 1, followed by Haldol 5 mg IM x 1 and Ativan 2 mg IM x 1. Her delusional thoughts are decreasing in intensity but still present. She denies SI/HI, intent or plan. She does not overtly appear to be attending to internal stimuli. She denies auditory or visual hallucinations. She complains of anxiety and poor sleep, and requests to start Vistaril, which she reports has worked well for her in the past. Mental Status Exam: General Appearance: Patient is an obese female, dressed in casual attire. Orientation: She is alert, oriented to person, place, time. Behavior: Patient is currently calmly seated, attempts to cooperate. Speech: Non-pressured, but intense. Mood/Affect: Improving, affect is odd/blunted. Suicidality/Homicidality: She denies suicidal and homicidal ideations, plan or intent. Perceptions: She denies auditory or visual hallucinations, does not appear to be overtly attending to internal stimuli. Thought content: Paranoid delusions, somatic delusions; improving in intensity. Thought process: Perseverative, somewhat concrete Memory and concentration: Intact for purposes of this assessment. Judgment and insight: Very poor Assessment Schizoaffective disorder, bipolar type Borderline personality disorder Cannabis use disorder Cocaine use disorder, by history Plan: -Patient continues to meet criteria for inpatient psychiatric admission for symptom stabilization and safety. The patient has been petitioned and certified. -Medications: Start Hydroxyzine 50 mg TID PRN for anxiety. Continue Prolixin decanoate 37.5 mg IM every 2 weeks, due on 02/13/2022.Will consider increasing to 50 mg IM if needed. Continue Abilify 5 mg BID for psychosis and mood/stabilization, with plan to increase as tolerated and switch to Abilify Maintena. -When necessary Ativan and Thorazine for agitation/aggression. -NRT - nicotine patch -SW on board for discharge planning. Encouraged the patient to participate in milieu.
[2022-02-05] MEDS: hydrOXYzine HCL 25 MG TAB PO PRN (20:20)
[2022-02-05] MEDS ORDERED: chlorproMAZINE 25 MG/ML 2 ML AMP IM STA (23:17)
[2022-02-05] MEDS ORDERED: diphenhydrAMINE 50 MG/ML 1 ML VIAL IM STA (23:18)
[2022-02-05] MEDS: FLUTICASONE 50MCG/SPRAY NASAL 16GM EA NOSTRIL SCH (23:54)
[2022-02-06 13:45] LABS: HIV-1 RNA Not detected (Not detected)
[2022-02-06] MEDS: ARIPiprazole 5 MG TAB PO SCH ×2 (15:07→20:13)
[2022-02-06] MEDS: NICOTINE 14MG/24HR PATCH TRANSDERM SCH ×2 (15:07→18:34)
[2022-02-06] MEDS: FLUTICASONE 110 MCG INHALER INHALATION SCH ×2 (15:07→20:23)
--- NOTE | 2022-02-06 15:57 | P.PN ---
Progress Note - Text Progress Note Date: 02/06/22 Interval History: Patient was seen in her room where she was sound asleep and did not wake to voice. Respirations are normal. Staff reports patient has been asleep for most of the day, woke up for breakfast and lunch, but returned to bed. Last night, patient was severely agitated and yelling/threatening, grossly psychotic and expressing delusional thought content. She received Haldol 5 mg IM x 1 and Ativan 1 mg IM x 1. Her morning dose of Abilify was held this morning due to patient sleeping most of the day. Mental Status Exam: General Appearance: Patient is an obese female, disheveled, asleep in bed. Behavior: Asleep in bed. Speech: Unable to assess due to patient sleeping. Mood/Affect: : Unable to assess due to patient sleeping. Suicidality/Homicidality: : Unable to assess due to patient sleeping. Perceptions: : Unable to assess due to patient sleeping. Thought content: : Unable to assess due to patient sleeping. Thought process: : Unable to assess due to patient sleeping. Memory and concentration: : Unable to assess due to patient sleeping. Judgment and insight: Chronically poor Assessment Schizoaffective disorder, bipolar type Borderline personality disorder Cannabis use disorder Cocaine use disorder, by history Plan: -Patient continues to meet criteria for inpatient psychiatric admission for symptom stabilization and safety. The patient has been petitioned and certified. -Medications: Continue Hydroxyzine 50 mg TID PRN for anxiety. Continue Prolixin decanoate 37.5 mg IM every 2 weeks, due on 02/13/2022.Will consider increasing to 50 mg IM if needed. Continue Abilify 5 mg BID for psychosis and mood/stabilization, with plan to increase as tolerated and switch to Abilify Maintena. Monitor vitals. -When necessary Ativan and Thorazine for agitation/aggression. -NRT - nicotine patch -SW on board for discharge planning. Encouraged the patient to participate in milieu.
[2022-02-06] MEDS: LORazepam 1 MG TAB PO PRN (20:13)
[2022-02-06] MEDS: haloperidoL 5 MG TAB PO PRN (20:13)
[2022-02-06] MEDS: FLUTICASONE 50MCG/SPRAY NASAL 16GM EA NOSTRIL SCH (20:23)
[2022-02-07] MEDS: ARIPiprazole 5 MG TAB PO SCH (09:21)
[2022-02-07] MEDS: NICOTINE 14MG/24HR PATCH TRANSDERM SCH ×2 (09:24→13:57)
[2022-02-07] MEDS: FLUTICASONE 110 MCG INHALER INHALATION SCH ×2 (09:24→22:38)
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
[2022-02-07] MEDS: NICOTINE GUM (POLACRILEX) 2 MG GUM BUCCAL PRN ×2 (14:32→19:50)
[2022-02-07] MEDS: ACETAMINOPHEN TAB 325 MG TAB PO PRN (18:23)
[2022-02-07] MEDS: ARIPiprazole 10 MG TAB PO SCH (20:03)
[2022-02-07] MEDS: hydrOXYzine HCL 25 MG TAB PO PRN (20:05)
[2022-02-07] MEDS: LORazepam 1 MG TAB PO PRN (22:21)
[2022-02-07] MEDS: haloperidoL 5 MG TAB PO PRN (22:22)
[2022-02-07] MEDS: FLUTICASONE 50MCG/SPRAY NASAL 16GM EA NOSTRIL SCH (22:39)
[2022-02-08] MEDS: ARIPiprazole 10 MG TAB PO SCH ×2 (08:15→20:13)
[2022-02-08] MEDS: FLUTICASONE 110 MCG INHALER INHALATION SCH ×2 (08:15→20:10)
--- NOTE | 2022-02-08 11:56 | P.PN ---
Progress Note - Text Progress Note Date: 02/08/22 Interval History: Patient was seen resting in bed and was directable and was agreeable to speak with telegraphic typewriter operator chief in the office. Currently, the patient is not reporting any suicidal or homicidal ideation, intention, and/or plan. She is not reporting any auditory or visual. The patient is in agreement with the plan to continue taking the medications in anticipation for discharge on Sunday. She is also agreeable to transitioning to Abilify maintena or Prolixin Decanoate. The patient does report that she was hyperactive yesterday however states that she will do her best to behave. As per staff, the patient occasionally makes sexually inappropriate remarks however this is likely the patient's baseline. Mental Status Exam: General Appearance: Patient appears to be stated age is alert, directable, and cooperative. Behavior: Patient is seated without any agitated behavior. Fair eye contact. Speech: Patient's speech is fluent and nonpressured. Mood/Affect: Mood is "doing okay." Affect is euthymic and blunted. Suicidality/Homicidality: Patient denies any suicidal or homicidal ideation, intention, and/or plan. Perceptions: Patient denies any visual hallucinations and denies any auditory hallucinations Though content/process: There is no evidence of any delusional thought content and thought process is linear and goal-directed. Memory and concentration: AOX3, grossly intact for the purposes of this session Judgment and insight: Improving mildly Vital Signs Temp 98.1 F 02/03/22 08:59 Pulse 112 H 02/03/22 08:59 Resp 16 02/03/22 08:59 BP 118/70 02/03/22 08:59 Pulse Ox 98 02/03/22 08:59 FiO2 Assessment Schizoaffective disorder, bipolar type Borderline personality disorder Cannabis use disorder Cocaine use disorder, by history Plan: -Patient continues to meet criteria for inpatient psychiatric admission for symptom stabilization and safety. Patient deferred mental health court. -Medications: Continue Prolixin decanoate 37.5 mg IM every 2 weeks, due on 02/13/2022.Will consider increasing to 50 mg IM if needed. Continue Abilify 10 mg by mouth twice a day for psychosis and mood stabilization. Vistaril 50 mg by mouth 3 times a day when necessary for anxiety -When necessary Ativan, and Thorazine for agitation/aggression. -NRT - nicotine patch -SW on board for discharge planning. Encouraged the patient to participate in milieu.
[2022-02-08] MEDS: NICOTINE GUM (POLACRILEX) 2 MG GUM BUCCAL PRN ×2 (13:28→16:28)
[2022-02-08] MEDS: FLUTICASONE 50MCG/SPRAY NASAL 16GM EA NOSTRIL SCH (20:11)
[2022-02-08] MEDS: hydrOXYzine HCL 25 MG TAB PO PRN (20:12)
[2022-02-09] MEDS: LORazepam 1 MG TAB PO PRN (00:28)
[2022-02-09] MEDS: haloperidoL 5 MG TAB PO PRN (00:28)
[2022-02-09] MEDS: ARIPiprazole 10 MG TAB PO SCH (07:53)
[2022-02-09] MEDS: FLUTICASONE 110 MCG INHALER INHALATION SCH ×2 (07:54→22:37)
[2022-02-09] MEDS: NICOTINE GUM (POLACRILEX) 2 MG GUM BUCCAL PRN ×3 (08:50→16:01)
[2022-02-09] MEDS ORDERED: fluPHENAZine DECANOATE 25 MG/ML 5ML MDV IM ONE (10:30)
--- NOTE | 2022-02-09 14:24 | P.PN ---
Progress Note - Text Progress Note Date: 02/09/22 Interval History: Patient was seen resting in bed and was directable and was agreeable to speak with jingle writer in the office. Currently, the patient is not reporting any suicidal or homicidal ideation, intention, and/or plan. She is denying any auditory or visual hallucinations. She is not reporting any paranoia or other delusions. The patient has been adherent with her medications and is not endorsing any significant side effects at this time. She reports that she is happy with the Abilify as she has been on this medication in the past and felt that this medication is beneficial. She does report that the Abilify causes her to be a little bit hyper at night and is requesting that she only takes medication during the day. She is agreeable to receiving the next dose of Prolixin Decanoate today. She is otherwise not reporting any issues regarding her mood and has been attending groups. Mental Status Exam: General Appearance: Patient appears to be stated age is alert, directable, and cooperative. Behavior: Patient is seated without any agitated behavior. Fair eye contact. Speech: Patient's speech is fluent and nonpressured. Mood/Affect: Mood is "feeling good." Affect is euthymic and constricted. Suicidality/Homicidality: Patient denies any suicidal or homicidal ideation, intention, and/or plan. Perceptions: Patient denies any visual hallucinations and denies any auditory hallucinations Though content/process: There is no evidence of any delusional thought content and thought process is linear and goal-directed. Memory and concentration: AOX3, grossly intact for the purposes of this session Judgment and insight: Improving mildly Vital Signs Temp 98.1 F 02/03/22 08:59 Pulse 112 H 02/03/22 08:59 Resp 16 02/03/22 08:59 BP 118/70 02/03/22 08:59 Pulse Ox 98 02/03/22 08:59 FiO2 Assessment Schizoaffective disorder, bipolar type Borderline personality disorder Cannabis use disorder Cocaine use disorder, by history Plan: -Patient continues to meet criteria for inpatient psychiatric admission for symptom stabilization and safety. Patient deferred mental health court. -Medications: We will administer prolixin decanoate 50 mg IM every 2 weeks starting today. Change Abilify to 20 mg by mouth every a.m. as per patient preference for psychosis and mood stabilization. Melatonin 10 mg by mouth at bedtime for insomnia Vistaril 50 mg by mouth 3 times a day when necessary for anxiety -When necessary Ativan, and Thorazine for agitation/aggression. -NRT - nicotine patch -SW on board for discharge planning. Encouraged the patient to participate in milieu.
[2022-02-09] MEDS: hydrOXYzine HCL 25 MG TAB PO PRN (20:09)
[2022-02-09] MEDS ORDERED: MELATONIN 5 MG TABLET PO SCH (21:00)
[2022-02-09] MEDS: FLUTICASONE 50MCG/SPRAY NASAL 16GM EA NOSTRIL SCH (22:37)
[2022-02-10] MEDS: ACETAMINOPHEN TAB 325 MG TAB PO PRN ×2 (04:27→12:34)
[2022-02-10] MEDS: MAG HYDROX/AL HYDROX/SIMETH 30 ML CUP PO PRN (04:29)
[2022-02-10 04:31] VITALS: BP 109/62; PULSE 102; RESP 18; TEMP 97.3
[2022-02-10] MEDS: FLUTICASONE 110 MCG INHALER INHALATION SCH (07:59)
[2022-02-10] MEDS: NICOTINE GUM (POLACRILEX) 2 MG GUM BUCCAL PRN ×2 (08:21→12:34)
[2022-02-10] MEDS ORDERED: PANTOPRAZOLE 40 MG TABLET PO STA (09:25)
[2022-02-10] MEDS: LORATADINE 10 MG TAB PO PRN (12:35)
[2022-02-10 12:54] VITALS: BMI 38.0
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
[2022-02-13] MEDS ORDERED: fluPHENAZine DECANOATE 25 MG/ML 5ML MDV IM SCH (09:00)
== END 2022-02-10 14:20 | disposition home or self-care (01) | DRG 885 ==
LOC: EC 12:16 → 3MHU 22:42
PROVIDERS: ADMIT Psychiatry & Neurology Psychiatry; ATTEND Psychiatry & Neurology Psychiatry
DX: F25.0 Schizoaffective disorder, bipolar type (principal); F41.0 Panic disorder [episodic paroxysmal anxiety]; F43.10 Post-traumatic stress disorder, unspecified; F60.3 Borderline personality disorder; G47.00 Insomnia, unspecified; G89.29 Other chronic pain; J45.909 Unspecified asthma, uncomplicated; G43.909 Migraine, unspecified, not intractable, without status migrainosus; N89.8 Other specified noninflammatory disorders of vagina; Z78.1 Physical restraint status; I95.9 Hypotension, unspecified; R45.1 Restlessness and agitation; F14.11 Cocaine abuse, in remission; F12.10 Cannabis abuse, uncomplicated; F17.210 Nicotine dependence, cigarettes, uncomplicated; Z91.19 Patient's noncompliance with other medical treatment and regimen; Z79.899 Other long term (current) drug therapy; Z87.442 Personal history of urinary calculi; Z20.822 Contact with and (suspected) exposure to COVID-19; Z56.0 Unemployment, unspecified; K21.9 Gastro-esophageal reflux disease without esophagitis; K76.9 Liver disease, unspecified; Z88.0 Allergy status to penicillin; Z88.2 Allergy status to sulfonamides; Z28.310 Unvaccinated for COVID-19; Z28.21 Immunization not carried out because of patient refusal; Z87.820 Personal history of traumatic brain injury
CPT/HCPCS: 80053; 80061; 80306; 81001; 81025; 83036; 83735; 84443; 85025; 87535; 87635; 99285

== ENCOUNTER 2022-04-26 15:07 | Emergency (ER) | payer OTHER ==
[2022-04-26 16:07] VITALS: BP 123/78; PULSE 90; RESP 16; TEMP 98.1
[2022-04-26 16:28] LABS: Appearance,Urine Clear (Clear); Bilirubin,Urine Negative (Negative); Blood,Urine Negative (Negative); Color,Urine Colorless; Glucose,Urine (UA) Negative (Negative); Ketones,Urine Negative (Negative); Leukocyte Esterase,Urine Negative (Negative); Nitrite,Urine Negative (Negative); PH, Urine 6.5 (5.0-8.0); Protein,Urine Negative (Negative); Specific Gravity,Urine 1.004 (1.001-1.035); Urobilinogen,Urine <2.0 mg/dL (<2.0)
[2022-04-26] MEDS ORDERED: metroNIDAZOLE 500 MG TAB PO STA (17:00)
[2022-04-26] MEDS ORDERED: DOXYCYCLINE 100 MG CAP PO STA (17:00)
[2022-04-26] MEDS ORDERED: cefTRIAXone 500 MG VIAL IM STA (17:00)
[2022-04-26 17:46] LABS: Basophils # (A) 0.1 k/uL (0-0.2); Basophils % (A) 0 %; Eosinophils # (A) 0.2 k/uL (0-0.7); Eosinophils % (A) 1 %; HGB 12.7 gm/dL (11.4-16.0); Lymphocytes # (A) 4.1 k/uL (1.0-4.8); Lymphocytes % (A) 30 %; MCH 30.3 pg (25.0-35.0); MCHC 34.3 g/dL (31.0-37.0); MCV 88.3 fL (80.0-100.0); Mean Platelet Volume 9.4; Monocytes # (A) 0.7 k/uL (0-1.0); Monocytes % (A) 5 %; Neutrophils # (A) 8.2 k/uL (1.3-7.7); Neutrophils % (A) 61 %; Platelet Count 243 k/uL (150-450); RBC 4.19 m/uL (3.80-5.40); WBC 13.4 k/uL (3.8-10.6)
[2022-04-26 18:00] LABS: ALT 21 U/L (4-34); AST 21 U/L (14-36); African American GFR (CKD) >90 (>60 ml/min/1.73 sqM); Albumin 4.1 g/dL (3.5-5.0); Alkaline Phosphatase 69 U/L (38-126); Anion Gap 7 mmol/L; Blood Urea Nitrogen 9 mg/dL (7-17); Carbon Dioxide 27 mmol/L (22-30); Chloride 106 mmol/L (98-107); Glucose 83 mg/dL (74-99); Non-African American GFR(CKD) >90 (>60 ml/min/1.73 sqM); Potassium 4.6 mmol/L (3.5-5.1); Sodium 140 mmol/L (137-145); Total Bilirubin 0.3 mg/dL (0.2-1.3); Total Protein 6.5 g/dL (6.3-8.2)
--- NOTE | 2022-04-26 18:29 | ED ---
Abdominal Pain HPI - General Chief Complaint: Abdominal Pain Stated Complaint: std testing Time Seen by Provider: 04/26/22 16:23 Source: patient Mode of arrival: ambulatory Limitations: no limitations - History of Present Illness Initial Comments: Patient is a 27-year-old female presenting requesting STI testing. She states that her partner recently tested positive for Trichomonas, she is requesting testing and treatment today. Patient admits to intermittent pelvic cramping. Denies vaginal discharge, bleeding. Denies fever, chills, nausea, vomiting, abdominal pain, dysuria, hematuria, urgency, frequency, diarrhea, hematochezia, melena. - Related Data Home Medications Medication Instructions Recorded Confirmed Albuterol Inhaler [Ventolin Hfa 2 puff INHALATION RT-Q6H PRN 01/31/22 04/26/22 Inhaler] Cetirizine HCl [Zyrtec] 10 mg PO DAILY PRN 01/31/22 04/26/22 Fluticasone Nasal [place] [Flonase 2 spr EA NOSTRIL HS 01/31/22 04/26/22 Nasal [place]] Fluticasone Propionate 2 puff INHALATION RT-BID 01/31/22 04/26/22 [Fluticasone Propionate Hfa 110 MCG (Inhaler)] Previous Rx's Medication Instructions Recorded Melatonin 10 mg PO HS 30 Days tab 02/10/22 fluPHENAZine decanoate [Prolixin 50 mg IM Q14D #1 ml 02/10/22 Decanoate] Doxycycline [Vibramycin] 100 mg PO BID 7 Days #14 capsule 04/26/22 Allergies Allergy/AdvReac Type Severity Reaction Status Date / Time Penicillins Allergy Severe Anaphylaxis Verified 04/26/22 17:21 Sulfa (Sulfonamide Allergy Severe Anaphylaxis Verified 04/26/22 17:21 Antibiotics) diphenhydramine HCl Allergy Nausea Verified 04/26/22 17:21 [From Benadryl] lithium Allergy Unknown Verified 04/26/22 17:21 Review of Systems ROS Statement: Those systems with pertinent positive or pertinent negative responses have been documented in the HPI. ROS Other: All systems not noted in ROS Statement are negative. 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 Past Psychological History: Anxiety, Bipolar, Depression, Panic Disorder, PTSD, Schizoaffective Disorder Smoking Status: Current every day smoker Past Alcohol Use History: None Reported Past Drug Use History: Marijuana - Past Family History Mother Family Medical History: No Reported History Father Family Medical History: No Reported History Additional Family Medical History / Comment(s): bipolar, sever seasonal allergies Brother(s) Family Medical History: No Reported History Sister(s) Family Medical History: No Reported History General Exam Limitations: no limitations General appearance: alert, in no apparent distress Head exam: Present: atraumatic, normocephalic, normal inspection Eye exam: Present: normal appearance, PERRL, EOMI. Absent: scleral icterus, conjunctival injection, periorbital swelling Neck exam: Present: normal inspection Respiratory exam: Present: normal lung sounds bilaterally. Absent: respiratory distress, wheezes, rales, rhonchi, stridor Cardiovascular Exam: Present: regular rate, normal rhythm, normal heart sounds. Absent: systolic murmur, diastolic murmur, rubs, gallop, clicks GI/Abdominal exam: Present: soft. Absent: distended, tenderness, guarding, rebound, rigid External exam: Present: normal external exam Speculum exam: Present: normal speculum exam. Absent: cervical discharge, vaginal bleeding By manual exam: Present: normal by manual exam. Absent: cervical motion tenderness Neurological exam: Present: alert, oriented X3, CN II-XII intact Psychiatric exam: Present: normal affect, normal mood Skin exam: Present: warm, dry, intact, normal color. Absent: rash Course Vital Signs 04/26/22 16:04 Temperature 98.1 F Pulse Rate 90 Respiratory 16 Rate Blood Pressure 123/78 O2 Sat by Pulse 100 Oximetry Medical Decision Making - Medical Decision Making Patient is a 27-year-old female presenting for STI testing. Patient states that her boyfriend tested positive for Trichomonas, she is requesting testing and treatment. Additionally she is also complaining of intermittent pelvic cramping, no discharge, bleeding, fever, chills, nausea, vomiting. On examination there is no tenderness to palpation of the abdomen. Normal speculum and bimanual exam. Genital culture and Trichomonas testing are sent out. Gonorrhea and chlamydia testing. Urine are sent out. Urine shows no infectious process or bleeding. HCG is negative. Trichomonas is negative. WBC 13.4. CMP is unremarkable. Patient is declining ultrasound at this time, stating that she would only treatment at this time and will come back if symptoms get worse. Patient is given Rocephin and prescription for doxycycline is sent to pharmacy. Follow-up with SERVICE SECRETARY. Follow-up with PCP. Report back to ER with any new or worsening symptoms. Discussed return parameters and answered all questions. Patient conveyed verbal understanding and agreed to the plan. I discussed this case in detail with my attending Dr. Bella. - Lab Data Result diagrams: 04/26/22 17:33 04/26/22 17:33 Lab Results 04/26/22 04/26/22 04/26/22 Range/Units 16:12 16:12 17:33 WBC (3.8-10.6) k/uL RBC (3.80-5.40) m/uL Hgb (11.4-16.0) gm/dL Hct (34.0-46.0) % MCV (80.0-100.0) fL MCH (25.0-35.0) pg MCHC (31.0-37.0) g/dL RDW (11.5-15.5) % Plt Count (150-450) k/uL MPV Neutrophils % % Lymphocytes % % Monocytes % % Eosinophils % % Basophils % % Neutrophils # (1.3-7.7) k/uL Lymphocytes # (1.0-4.8) k/uL Monocytes # (0-1.0) k/uL Eosinophils # (0-0.7) k/uL Basophils # (0-0.2) k/uL Sodium (137-145) mmol/L Potassium (3.5-5.1) mmol/L Chloride (98-107) mmol/L Carbon Dioxide (22-30) mmol/L Anion Gap mmol/L BUN (7-17) mg/dL Creatinine (0.52-1.04) mg/dL Est GFR (CKD-EPI)AfAm (>60 ml/min/1.73 sqM) Est GFR (CKD-EPI)NonAf (>60 ml/min/1.73 sqM) Glucose (74-99) mg/dL Calcium (8.4-10.2) mg/dL Total Bilirubin (0.2-1.3) mg/dL AST (14-36) U/L ALT (4-34) U/L Alkaline Phosphatase (38-126) U/L Total Protein (6.3-8.2) g/dL Albumin (3.5-5.0) g/dL Urine Color Colorless Urine Appearance Clear (Clear) Urine pH 6.5 (5.0-8.0) Ur Specific [address] 1.004 (1.001-1.035) Urine Protein Negative (Negative) Urine Glucose (UA) Negative (Negative) Urine Ketones Negative (Negative) Urine Blood Negative (Negative) Urine Nitrite Negative (Negative) Urine Bilirubin Negative (Negative) Urine Urobilinogen <2.0 (<2.0) mg/dL Ur Leukocyte Esterase Negative (Negative) Urine HCG, Qual Not Detected (Not Detectd) Trichomonas Ag (Rapid) Negative (Negative) 04/26/22 04/26/22 Range/Units 17:33 17:33 WBC 13.4 H (3.8-10.6) k/uL RBC 4.19 (3.80-5.40) m/uL Hgb 12.7 (11.4-16.0) gm/dL Hct 37.0 (34.0-46.0) % MCV 88.3 (80.0-100.0) fL MCH 30.3 (25.0-35.0) pg MCHC 34.3 (31.0-37.0) g/dL RDW 13.0 (11.5-15.5) % Plt Count 243 (150-450) k/uL MPV 9.4 Neutrophils % 61 % Lymphocytes % 30 % Monocytes % 5 % Eosinophils % 1 % Basophils % 0 % Neutrophils # 8.2 H (1.3-7.7) k/uL Lymphocytes # 4.1 (1.0-4.8) k/uL Monocytes # 0.7 (0-1.0) k/uL Eosinophils # 0.2 (0-0.7) k/uL Basophils # 0.1 (0-0.2) k/uL Sodium 140 (137-145) mmol/L Potassium 4.6 (3.5-5.1) mmol/L Chloride 106 (98-107) mmol/L Carbon Dioxide 27 (22-30) mmol/L Anion Gap 7 mmol/L BUN 9 (7-17) mg/dL Creatinine 0.74 (0.52-1.04) mg/dL Est GFR (CKD-EPI)AfAm >90 (>60 ml/min/1.73 sqM) Est GFR (CKD-EPI)NonAf >90 (>60 ml/min/1.73 sqM) Glucose 83 (74-99) mg/dL Calcium 9.0 (8.4-10.2) mg/dL Total Bilirubin 0.3 (0.2-1.3) mg/dL AST 21 (14-36) U/L ALT 21 (4-34) U/L Alkaline Phosphatase 69 (38-126) U/L Total Protein 6.5 (6.3-8.2) g/dL Albumin 4.1 (3.5-5.0) g/dL Urine Color Urine Appearance (Clear) Urine pH (5.0-8.0) Ur Specific [address] [address] (1.001-1.035) Urine Protein (Negative) Urine Glucose (UA) (Negative) Urine Ketones (Negative) Urine Blood (Negative) Urine Nitrite (Negative) Urine Bilirubin (Negative) Urine Urobilinogen (<2.0) mg/dL Ur Leukocyte Esterase (Negative) Urine HCG, Qual (Not Detectd) Trichomonas Ag (Rapid) (Negative) Disposition Clinical Impression: Sexually transmitted disease exposure Disposition: HOME SELF-CARE Condition: Good Instructions (If sedation given, give patient instructions): Sexually Transmitted Diseases (ED), Safe Sex Practices (ED) Additional Instructions: Follow-up with SERVICE SECRETARY. Report back to ER with any new or worsening symptoms. Prescriptions: Doxycycline [Vibramycin] 100 mg PO BID 7 Days #14 capsule Is patient prescribed a controlled substance at d/c from ED?: No Referrals: None,Stated [Primary Care Provider] - 1-2 days Time of Disposition: 18:29
[2022-04-27 17:18] LABS: C. trachomatis,PCR Negative (Neg,Equiv); Chlamydia trachomatis Source Urine; N. gonorrhoeae,PCR Negative (Neg,Equiv); Neisseria Source Urine
== END 2022-04-26 18:38 | disposition home or self-care (01) ==
LOC: EC 15:07
DX: R10.2 Pelvic and perineal pain (principal); Z20.2 Contact with and (suspected) exposure to infections with a predominantly sexual mode of transmission; K21.9 Gastro-esophageal reflux disease without esophagitis; J45.909 Unspecified asthma, uncomplicated; F17.200 Nicotine dependence, unspecified, uncomplicated; Z88.8 Allergy status to other drugs, medicaments and biological substances; Z88.2 Allergy status to sulfonamides; Z88.0 Allergy status to penicillin; Z91.048 Other nonmedicinal substance allergy status
CPT/HCPCS: 36415; 80053; 85025; 81003; 81025; 87808; 87491; 87591; 87070; 99283; 96372; J0696

== ENCOUNTER 2022-05-11 16:54 | Emergency (ER) | payer OTHER ==
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
[2022-05-11] MEDS ORDERED: IBUPROFEN 400 MG TAB PO STA (21:22)
[2022-05-11] MEDS ORDERED: ACETAMINOPHEN TAB 500 MG TAB PO STA (21:22)
[2022-05-11 21:35] VITALS: BP 111/74; PULSE 89; RESP 17; TEMP 98
== END 2022-05-11 21:34 | disposition home or self-care (01) ==
LOC: EC 16:54
DX: S03.41XA Sprain of jaw, right side, initial encounter (principal); J45.909 Unspecified asthma, uncomplicated; K21.9 Gastro-esophageal reflux disease without esophagitis; F41.9 Anxiety disorder, unspecified; F31.9 Bipolar disorder, unspecified; F17.200 Nicotine dependence, unspecified, uncomplicated; F12.90 Cannabis use, unspecified, uncomplicated; Z88.0 Allergy status to penicillin; Z88.2 Allergy status to sulfonamides; Z88.8 Allergy status to other drugs, medicaments and biological substances; Z91.048 Other nonmedicinal substance allergy status; Z79.51 Long term (current) use of inhaled steroids; X58.XXXA Exposure to other specified factors, initial encounter
CPT/HCPCS: 70486; 99283

== ENCOUNTER 2022-05-28 13:24 | Emergency (ER) | payer OTHER ==
[2022-05-28 13:32] VITALS: BP 120/87; PULSE 98; RESP 16; TEMP 97.5
[2022-05-28 14:20] LABS: Appearance,Urine Clear (Clear); Bilirubin,Urine Negative (Negative); Blood,Urine Negative (Negative); Color,Urine Colorless; Glucose,Urine (UA) Negative (Negative); Ketones,Urine Negative (Negative); Leukocyte Esterase,Urine Negative (Negative); Nitrite,Urine Negative (Negative); Protein,Urine Negative (Negative); Specific Gravity,Urine 1.002 (1.001-1.035); Urobilinogen,Urine <2.0 mg/dL (<2.0)
--- NOTE | 2022-05-28 14:20 | ED ---
Abdominal Pain HPI - General Chief Complaint: Abdominal Pain Stated Complaint: Abd Pain Time Seen by Provider: 05/28/22 13:25 Source: patient, EMS, RN notes reviewed Mode of arrival: EMS Limitations: no limitations - History of Present Illness Initial Comments: 23-year-old female presents emergency Department chief complaint abdominal issues. Patient states that she started having some nausea 30 minutes prior to calling EMS. Patient states that she had sexual intercourse last night states that she is concerned she has STDs. Patient denies any constipation, diarrhea, vomiting. No fevers chills no other complaints. - Related Data Home Medications Medication Instructions Recorded Confirmed Albuterol Inhaler [Ventolin Hfa 2 puff INHALATION RT-Q6H PRN 01/31/22 05/11/22 Inhaler] Cetirizine HCl [Zyrtec] 10 mg PO DAILY PRN 01/31/22 05/11/22 Fluticasone Nasal [place] [Flonase 2 spr EA NOSTRIL HS 01/31/22 05/11/22 Nasal [place]] Fluticasone Propionate 2 puff INHALATION RT-BID 01/31/22 05/11/22 [Fluticasone Propionate Hfa 110 MCG (Inhaler)] Previous Rx's Medication Instructions Recorded Melatonin 10 mg PO HS 30 Days tab 02/10/22 fluPHENAZine decanoate [Prolixin 50 mg IM Q14D #1 ml 02/10/22 Decanoate] Acetaminophen Tab [Tylenol Tab] 500 mg PO Q6H PRN #24 tablet 05/11/22 Acetaminophen Tab [Tylenol Tab] 500 mg PO Q6H PRN #24 tablet 05/11/22 Ibuprofen [Motrin] 600 mg PO Q8HR PRN #30 tab 05/11/22 Naproxen [Naprosyn] 375 mg PO Q12HR PRN #20 tablet 05/11/22 Allergies Allergy/AdvReac Type Severity Reaction Status Date / Time Penicillins Allergy Severe Anaphylaxis Verified 05/11/22 21:17 Sulfa (Sulfonamide Allergy Severe Anaphylaxis Verified 05/11/22 21:17 Antibiotics) diphenhydramine HCl Allergy Nausea Verified 05/11/22 21:17 [From Benadryl] lithium Allergy Unknown Verified 05/11/22 21:17 Review of Systems ROS Statement: Those systems with pertinent positive or pertinent negative responses have been documented in the HPI. ROS Other: All systems not noted in ROS Statement are negative. 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 Past Psychological History: Anxiety, Bipolar, Depression, Panic Disorder, PTSD, Schizoaffective Disorder Smoking Status: Current every day smoker Past Alcohol Use History: None Reported Past Drug Use History: Marijuana - Past Family History Mother Family Medical History: No Reported History Father Family Medical History: No Reported History Additional Family Medical History / Comment(s): bipolar, sever seasonal allergies Brother(s) Family Medical History: No Reported History Sister(s) Family Medical History: No Reported History General Exam Limitations: no limitations General appearance: alert, in no apparent distress Head exam: Present: atraumatic, normocephalic, normal inspection ENT exam: Present: normal exam, mucous membranes moist Neck exam: Present: normal inspection, full ROM. Absent: tenderness, meningismus, lymphadenopathy Respiratory exam: Present: normal lung sounds bilaterally. Absent: respiratory distress, wheezes, rales, rhonchi, stridor Cardiovascular Exam: Present: regular rate, normal rhythm, normal heart sounds. Absent: systolic murmur, diastolic murmur, rubs, gallop, clicks GI/Abdominal exam: Present: soft, normal bowel sounds. Absent: distended, tenderness, guarding, rebound, rigid Course Vital Signs 05/28/22 13:25 Temperature 97.5 F L Pulse Rate 98 Respiratory 16 Rate Blood Pressure 120/87 O2 Sat by Pulse 98 Oximetry Medical Decision Making - Medical Decision Making Patient left AGAINST MEDICAL ADVICE without telling staff - Lab Data Lab Results 05/28/22 05/28/22 Range/Units 13:58 13:58 Urine Color Colorless Urine Appearance Clear (Clear) Urine pH 6.0 (5.0-8.0) Ur Specific [place] 1.002 (1.001-1.035) Urine Protein Negative (Negative) Urine Glucose (UA) Negative (Negative) Urine Ketones Negative (Negative) Urine Blood Negative (Negative) Urine Nitrite Negative (Negative) Urine Bilirubin Negative (Negative) Urine Urobilinogen <2.0 (<2.0) mg/dL Ur Leukocyte Esterase Negative (Negative) Urine HCG, Qual Not Detected (Not Detectd) Disposition Clinical Impression: Abdominal pain Disposition: Left Against Medical Advice Referrals: None,Stated [Primary Care Provider] - 1-2 days Time of Disposition: 14:40
== END 2022-05-28 14:56 | disposition left against medical advice (07) ==
LOC: EC 13:24
DX: R10.9 Unspecified abdominal pain (principal); J45.909 Unspecified asthma, uncomplicated; K21.9 Gastro-esophageal reflux disease without esophagitis; F17.200 Nicotine dependence, unspecified, uncomplicated; F32.A Depression, unspecified; F41.9 Anxiety disorder, unspecified; Z79.51 Long term (current) use of inhaled steroids; Z79.899 Other long term (current) drug therapy; Z88.1 Allergy status to other antibiotic agents; Z88.2 Allergy status to sulfonamides; Z88.0 Allergy status to penicillin; Z88.9 Allergy status to unspecified drugs, medicaments and biological substances
CPT/HCPCS: 81003; 81025; 99284

== ENCOUNTER 2022-06-10 22:51 | Inpatient (IN) | payer MEDICAID, OTHER ==
[2022-06-10] MEDS ORDERED: cefTRIAXone 1,000 MG VIAL (IM USE) IM STA (23:08)
[2022-06-10] MEDS ORDERED: AZITHROMYCIN 500 MG TAB PO STA (23:08)
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
[2022-06-10 23:58] LABS: Basophils # (A) 0.1 k/uL (0-0.2); Basophils % (A) 1 %; Eosinophils # (A) 0.1 k/uL (0-0.7); Eosinophils % (A) 1 %; HCT 40.9 % (34.0-46.0); HGB 14.2 gm/dL (11.4-16.0); Lymphocytes # (A) 1.8 k/uL (1.0-4.8); Lymphocytes % (A) 21 %; MCH 31.1 pg (25.0-35.0); MCHC 34.8 g/dL (31.0-37.0); MCV 89.3 fL (80.0-100.0); Monocytes # (A) 0.4 k/uL (0-1.0); Monocytes % (A) 4 %; Neutrophils # (A) 6.1 k/uL (1.3-7.7); Neutrophils % (A) 71 %; Platelet Count 201 k/uL (150-450); RBC 4.58 m/uL (3.80-5.40); WBC 8.5 k/uL (3.8-10.6)
[2022-06-11 00:08] LABS: Appearance,Urine Cloudy (Clear); Bacteria,Urine Rare /hpf; Bilirubin,Urine Negative (Negative); Blood,Urine Negative (Negative); Color,Urine Yellow; Glucose,Urine (UA) Negative (Negative); Hyaline Casts,Urine 14 /lpf (0-2); Ketones,Urine Negative (Negative); Leukocyte Esterase,Urine Negative (Negative); Mucus,Urine Rare /hpf; Nitrite,Urine Negative (Negative); PH, Urine 5.5 (5.0-8.0); Protein,Urine Negative (Negative); RBC,Urine 80 /hpf (0-5); Specific Gravity,Urine 1.012 (1.001-1.035); Squamous Epithelial Cell,Urine 1 /hpf (0-4); Urobilinogen,Urine <2.0 mg/dL (<2.0); WBC,Urine 9 /hpf (0-5)
[2022-06-11 00:12] LABS: Acetaminophen <10.0 ug/mL; Salicylate <1.0 mg/dL
[2022-06-11 00:30] LABS: Amphetamine Screen,Urine Detected (NotDetected); Barbiturate Screen,Urine Not Detected (NotDetected); Benzodiazepines Screen,Urine Not Detected (NotDetected); Cocaine Screen,Urine Detected (NotDetected); Methadone Screen, Urine Not Detected (NotDetected); Opiate Screen,Urine Not Detected (NotDetected); Oxycodone Screen, Urine Not Detected (NotDetected); Phencyclidine Screen,Urine Not Detected (NotDetected); Tricyclic Antidepressant,Urine Not Detected (NotDetected); Urn Cannabinoid Scrn Detected (NotDetected)
[2022-06-11] MEDS ORDERED: HALOPERIDOL LACTATE 5 MG/ML 1 ML VIAL IM PRN (02:50)
[2022-06-11] MEDS ORDERED: MAG HYDROX/AL HYDROX/SIMETH 355 ML BOTTLE PO PRN (02:50)
[2022-06-11] MEDS ORDERED: hydrOXYzine pamoate 25 MG CAP PO PRN (02:56)
[2022-06-11] MEDS ORDERED: haloperidoL 5 MG TAB PO PRN (02:56)
[2022-06-11] MEDS ORDERED: hydrOXYzine HCL 50 MG/ML 1 ML VIAL IM PRN (02:56)
[2022-06-11 05:00] LABS: ALT 33 U/L (4-34); AST 34 U/L (14-36); African American GFR (CKD) >90 (>60 ml/min/1.73 sqM); Albumin 4.3 g/dL (3.5-5.0); Alkaline Phosphatase 87 U/L (38-126); Anion Gap 8 mmol/L; Blood Urea Nitrogen 9 mg/dL (7-17); Calcium 9.3 mg/dL (8.4-10.2); Carbon Dioxide 24 mmol/L (22-30); Chloride 104 mmol/L (98-107); Glucose 89 mg/dL (74-99); Non-African American GFR(CKD) >90 (>60 ml/min/1.73 sqM); Potassium 3.9 mmol/L (3.5-5.1); Sodium 136 mmol/L (137-145); Total Bilirubin 0.1 mg/dL (0.2-1.3)
[2022-06-11] MEDS ORDERED: NICOTINE 14MG/24HR PATCH TRANSDERM SCH (09:00)
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
[2022-06-11] MEDS: ACETAMINOPHEN TAB 325 MG TAB PO PRN (17:50)
[2022-06-11] MEDS: ARIPiprazole 10 MG TAB PO SCH (17:50)
[2022-06-11] MEDS: NICOTINE GUM (POLACRILEX) 2 MG GUM BUCCAL PRN (18:13)
[2022-06-11] MEDS ORDERED: QUEtiapine 50 MG TAB PO SCH (21:00)
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
[2022-06-12] MEDS: ARIPiprazole 10 MG TAB PO SCH (09:49)
[2022-06-12] MEDS ORDERED: fluPHENAZine DECANOATE 25 MG/ML 5ML MDV IM ONE (11:24)
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
[2022-06-12] MEDS ORDERED: LORazepam 1 MG/0.5 ML VIAL IM STA (13:19)
[2022-06-12] MEDS ORDERED: BENZTROPINE 2 MG/2 ML AMP IM ONE (13:21)
[2022-06-12] MEDS: ACETAMINOPHEN TAB 325 MG TAB PO PRN ×2 (13:46→20:28)
[2022-06-12] MEDS: NICOTINE GUM (POLACRILEX) 2 MG GUM BUCCAL PRN ×3 (13:46→20:09)
[2022-06-12] MEDS ORDERED: LORazepam 1 MG/0.5 ML VIAL IM PRN (13:56)
[2022-06-12] MEDS: chlorproMAZINE 25 MG TAB PO PRN (15:18)
[2022-06-12] MEDS: ALBUTEROL INHALER 60 PUFF/8 GM INHALER (MHU) INHALATION PRN (16:57)
[2022-06-12] MEDS ORDERED: LORATADINE 10 MG TAB PO PRN (17:30)
[2022-06-12] MEDS: FLUTICASONE 110 MCG INHALER INHALATION SCH (20:08)
[2022-06-12] MEDS ORDERED: QUEtiapine 50 MG TAB PO SCH (21:00)
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
[2022-06-13] MEDS: FLUTICASONE 110 MCG INHALER INHALATION SCH ×2 (10:05→20:48)
[2022-06-13] MEDS: ACETAMINOPHEN TAB 325 MG TAB PO PRN (13:13)
[2022-06-13] MEDS: NICOTINE GUM (POLACRILEX) 2 MG GUM BUCCAL PRN (13:13)
[2022-06-13 13:14] LABS: C. trachomatis,PCR Negative (Neg,Equiv); Chlamydia trachomatis Source Urine; N. gonorrhoeae,PCR Negative (Neg,Equiv); Neisseria Source Urine
[2022-06-13 13:56] LABS: HIV-1 RNA Not detected (Not detected)
[2022-06-13] MEDS: ALBUTEROL INHALER 60 PUFF/8 GM INHALER (MHU) INHALATION PRN (13:56)
[2022-06-13] MEDS ORDERED: HALOPERIDOL LACTATE 5 MG/ML 1 ML VIAL IM PRN (15:12)
[2022-06-13] MEDS ORDERED: HALOPERIDOL LACTATE 5 MG/ML 1 ML VIAL ONE (15:14)
[2022-06-13] MEDS: chlorproMAZINE 25 MG TAB PO SCH ×3 (15:23→20:48)
[2022-06-13] MEDS ORDERED: ZIPRASIDONE 20 MG VIAL IM STA (16:14)
[2022-06-13] MEDS ORDERED: ZIPRASIDONE 20 MG VIAL IM ONE (16:15)
[2022-06-14] MEDS: chlorproMAZINE 25 MG TAB PO PRN ×2 (02:01→20:02)
[2022-06-14] MEDS: NICOTINE GUM (POLACRILEX) 2 MG GUM BUCCAL PRN ×3 (02:02→15:48)
[2022-06-14] MEDS ORDERED: ARIPiprazole 10 MG TAB PO SCH (09:00)
[2022-06-14] MEDS: chlorproMAZINE 25 MG TAB PO SCH (09:21)
[2022-06-14] MEDS: FLUTICASONE 110 MCG INHALER INHALATION SCH ×2 (09:22→20:37)
[2022-06-14] MEDS ORDERED: FLUoxetine HCL 10 MG CAP PO STA (10:22)
--- NOTE | 2022-06-14 12:56 | P.PN ---
Progress Note - Text Progress Note Date: 06/14/22 Interval History: Patient was seen resting in bed and was directable and refused to get out of bed to speak with this provider. The patient expresses that she is "tired of living this way." She reports that she gets so much to others and that she has been left alone by her family and abandoned. She reports that her family members include doctors and surgeons however they want nothing to do with her. She also expresses that she has no place to go after being discharged from here. She is currently endorsing suicidal ideation however is not reporting any plan. She denies any auditory or visual hallucinations. She reports no paranoia or other delusions at this time. The patient is expressing desire to be placed on Abilify maintena. She is in agreement to starting Abilify and Prozac for management of bipolar depression. She denies any issues regarding her sleep or her appetite. Patient seems agreeable to going to rehab upon discharge. Mental Status Exam: General Appearance: Patient is directable, alert, and cooperative. Behavior: Fair eye contact today. Normal psychomotor activity. Speech: Patient's speech is fluent and nonpressured. Mood/Affect: Mood is "I have nowhere to go and no one cares for me." Affect is irritable. Suicidality/Homicidality the patient endorses suicidal ideation however denies any homicidal ideation. Perceptions: Patient denies any auditory or visual hallucinations. Though content/process: Dysphoric thought processes endorsed today. Memory and concentration: Grossly intact. Judgment and insight: Poor Vital Signs Temp 97.1 F L 06/13/22 06:20 Pulse 120 H 06/14/22 09:28 Resp 17 06/14/22 09:28 BP 121/76 06/14/22 09:28 Pulse Ox 98 06/14/22 09:28 FiO2 Laboratory Results - Last 24 Hours 06/10/22 23:45 Chlamydia Source Urine Chlamydia DNA (PCR) Negative N. gonorrhoeae Source Urine N.gonorrhoeae DNA Probe Negative Assessment Schizoaffective disorder, bipolar type Borderline personality disorder Methamphetamine use disorder Cannabis use disorder Cocaine use disorder Plan: -Patient continues to meet criteria for inpatient psychiatric admission for symptom stabilization and safety. Patient is under deferral status however we will file a demand for court due to the patient's nonadherence with treatment. Court scheduled for 06/28/2022. -Medications: Prolixin decanoate 50 mg IM was administered on 06/12/2022. Patient receives his medication every 2 weeks. Start the patient on Abilify 10 mg by mouth daily for mood stabilization. Plan is to transition her to Abilify maintena. Start Prozac 30 mg by mouth daily for depression -When necessary Ativan and Haldol for agitation/aggression. -NRT - nicotine patch -SW on board for discharge planning. Encouraged the patient to participate in milieu.
[2022-06-14] MEDS: ACETAMINOPHEN TAB 325 MG TAB PO PRN ×2 (18:01→22:50)
[2022-06-14] MEDS: metroNIDAZOLE 500 MG TAB PO SCH (20:02)
[2022-06-15] MEDS: chlorproMAZINE 25 MG TAB PO PRN ×3 (02:48→20:25)
[2022-06-15] MEDS: ACETAMINOPHEN TAB 325 MG TAB PO PRN ×3 (08:40→18:31)
[2022-06-15] MEDS: metroNIDAZOLE 500 MG TAB PO SCH ×2 (08:41→20:33)
[2022-06-15] MEDS: FLUoxetine HCL 10 MG CAP PO SCH (08:41)
[2022-06-15] MEDS: FLUTICASONE 110 MCG INHALER INHALATION SCH ×2 (08:41→20:34)
[2022-06-15] MEDS ORDERED: ARIPiprazole 10 MG TAB PO SCH (09:00)
[2022-06-15] MEDS: NICOTINE GUM (POLACRILEX) 2 MG GUM BUCCAL PRN ×2 (09:12→18:31)
--- NOTE | 2022-06-15 10:57 | P.PN ---
Progress Note - Text Progress Note Date: 06/15/22 Interval History: Patient was seen resting in bed and was directable and refused to get out of bed to speak with this provider. Currently, the patient is not reporting any suicidal or homicidal ideation, intention, and/or plan. She is not reporting any auditory or visual hallucinations. She denies any paranoia or other delusions at this time. She does express future and goal orientation with plans to obtain housing and eventually get a job. She is looking forward to quitting drugs and tobacco. She is in agreement with her treatment regimen and would like to someday transition to [facility]. She reports no issues regarding her sleep or her appetite. She is requesting if she can be off finger foods. Mental Status Exam: General Appearance: Patient is directable, alert, and cooperative. Behavior: Fair eye contact today. Normal psychomotor activity. Speech: Patient's speech is fluent and nonpressured. Mood/Affect: Mood is "doing okay" Affect is constricted. Suicidality/Homicidality: Currently, the patient denies any suicidal or homicidal ideation. Perceptions: Patient denies any auditory or visual hallucinations. Though content/process: Linear and logical in short conversation. Future oriented Memory and concentration: Grossly intact. Judgment and insight: Mildly improving Vital Signs Temp 97.1 F L 06/13/22 06:20 Pulse 92 06/15/22 09:08 Resp 20 06/15/22 09:08 BP 123/73 06/15/22 09:08 Pulse Ox 98 06/14/22 09:28 FiO2 Assessment Schizoaffective disorder, bipolar type Borderline personality disorder Methamphetamine use disorder Cannabis use disorder Cocaine use disorder Plan: -Patient continues to meet criteria for inpatient psychiatric admission for symptom stabilization and safety. Patient is under deferral status however we will file a demand for court due to the patient's nonadherence with treatment. Court scheduled for 06/28/2022. -Medications: Prolixin decanoate 50 mg IM was administered on 06/12/2022. Patient receives his medication every 2 weeks. Increase abilify to 15 mg by mouth daily for mood stabilization. Plan is to transition her to [facility]. Continue Prozac 30 mg by mouth daily for depression -When necessary Ativan and Haldol for agitation/aggression. -NRT - nicotine patch -SW on board for discharge planning. Encouraged the patient to participate in milieu.
[2022-06-15] MEDS: traZODone HCL 100 MG TAB PO SCH (20:22)
[2022-06-16] MEDS: FLUoxetine HCL 10 MG CAP PO SCH (07:53)
[2022-06-16] MEDS: metroNIDAZOLE 500 MG TAB PO SCH ×2 (07:53→20:32)
[2022-06-16] MEDS: FLUTICASONE 110 MCG INHALER INHALATION SCH ×2 (07:54→20:32)
[2022-06-16] MEDS ORDERED: ARIPiprazole 15 MG TAB PO SCH (09:00)
--- NOTE | 2022-06-16 09:50 | P.PN ---
Progress Note - Text Progress Note Date: 06/16/22 Interval History: Patient was seen resting in bed and was directable and refused to get out of bed to speak with this provider. Patient reports that she is "sleeping." She is however able to answer a few questions from this provider despite her not wishing to be interviewed this morning. She reports that she is not suicidal or homicidal. She denies any medical issues or concerns. She refuses to answer any further questions. She has been in adherent with her medications. She did express a desire to waive instability court yesterday. At approximately 20:25 on last night the patient received thorazine for agitation and inability to rest. Mental Status Exam: General Appearance: Patient is directable, alert, and cooperative. Behavior: Fair eye contact today. Normal psychomotor activity. Speech: Patient's speech is fluent and nonpressured. Mood/Affect: Mood is "doing okay" Affect is irritable. Suicidality/Homicidality: Currently, the patient denies any suicidal or homicidal ideation. Perceptions: Patient denies any auditory or visual hallucinations. Though content/process: Linear and logical in short conversation. Future oriented Memory and concentration: Grossly intact. Judgment and insight: Mildly improving Vital Signs Temp 97.1 F L 06/13/22 06:20 Pulse 92 06/15/22 09:08 Resp 20 06/15/22 09:08 BP 123/73 06/15/22 09:08 Pulse Ox 98 06/14/22 09:28 FiO2 Assessment Schizoaffective disorder, bipolar type Borderline personality disorder Methamphetamine use disorder Cannabis use disorder Cocaine use disorder Plan: -Patient continues to meet criteria for inpatient psychiatric admission for symptom stabilization and safety. Patient is under deferral status however we will file a demand for court due to the patient's nonadherence with treatment. Court scheduled for 06/28/2022. Patient wishes to waive and stipulate court. -Medications: Prolixin decanoate 50 mg IM was administered on 06/12/2022. Patient receives his medication every 2 weeks. Increase abilify to 20 mg by mouth daily for mood stabilization. Plan is to transition her to Abilify maintena in lieu of prolixin decanoate on 06/26/2022. Continue Prozac 30 mg by mouth daily for depression -When necessary Ativan and Haldol for agitation/aggression. -NRT - nicotine patch -SW on board for discharge planning. Encouraged the patient to participate in milieu.
[2022-06-16] MEDS: NICOTINE GUM (POLACRILEX) 2 MG GUM BUCCAL PRN (17:18)
[2022-06-16] MEDS: traZODone HCL 100 MG TAB PO SCH (20:32)
[2022-06-17] MEDS: NICOTINE GUM (POLACRILEX) 2 MG GUM BUCCAL PRN ×2 (05:41→21:03)
[2022-06-17] MEDS: LORazepam 2 MG/ML INJ IM PRN (05:41)
[2022-06-17] MEDS: chlorproMAZINE 25 MG/ML 2 ML AMP IM PRN (05:41)
[2022-06-17] MEDS: metroNIDAZOLE 500 MG TAB PO SCH ×2 (13:51→21:01)
[2022-06-17] MEDS: FLUoxetine HCL 10 MG CAP PO SCH (13:51)
[2022-06-17] MEDS: FLUTICASONE 110 MCG INHALER INHALATION SCH ×2 (13:51→21:15)
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
[2022-06-17] MEDS: traZODone HCL 100 MG TAB PO SCH (21:01)
[2022-06-17] MEDS: ACETAMINOPHEN TAB 325 MG TAB PO PRN (21:02)
[2022-06-17] MEDS: hydrOXYzine pamoate 25 MG CAP PO PRN (21:53)
[2022-06-17] MEDS: MAGNESIUM HYDROXIDE 2,400 MG/10 ML CUP PO PRN (21:55)
[2022-06-18] MEDS: metroNIDAZOLE 500 MG TAB PO SCH ×2 (08:25→20:08)
[2022-06-18] MEDS: FLUTICASONE 110 MCG INHALER INHALATION SCH ×2 (08:25→20:08)
[2022-06-18] MEDS: FLUoxetine HCL 10 MG CAP PO SCH (08:26)
[2022-06-18] MEDS: NICOTINE GUM (POLACRILEX) 2 MG GUM BUCCAL PRN ×3 (08:51→16:47)
[2022-06-18] MEDS ORDERED: FLUCONAZOLE 150 MG TAB PO STA (10:35)
[2022-06-18] MEDS ORDERED: traZODone HCL 100 MG TAB PO PRN (11:11)
[2022-06-18] MEDS: lamoTRIgine 25 MG TAB PO SCH (11:22)
[2022-06-18] MEDS: ACETAMINOPHEN TAB 325 MG TAB PO PRN (11:24)
[2022-06-18] MEDS: ALBUTEROL INHALER 60 PUFF/8 GM INHALER (MHU) INHALATION PRN (14:25)
[2022-06-18] MEDS ORDERED: IBUPROFEN 600 MG TAB PO PRN (15:55)
[2022-06-18] MEDS ORDERED: IBUPROFEN 600 MG TAB PO SCH (16:00)
--- NOTE | 2022-06-18 19:13 | P.PN ---
Progress Note - Text Progress Note Date: 06/18/22 Interval History: Patient appeared brighter this morning and was taking her medications as directed. She requested to speak with this provider in the interview room. She states that she would like to be placed back on Seroquel 200 mg and said she prefers it to trazodone for sleep. Patient also wondered about her HIV testing and was told that it's not resulted yet. She states that at nighttime, she continues to have nightmares due to past trauma. She was agreeable to being placed on prazosin for the nightmares. Patient asked about her medications for mood and did not want to be on Depakote or lithium. She was agreeable with trying Lamictal for mood stabilization. Discussed risks of Henry Ben syndrome and patient was agreeable to notifying the provider if she noticed any rash. Patient denies side effects to medications and appears to be tolerating them well today. Patient states that she feels "something moving on my stomach" and is suspicious that she is despite multiple negative tests. She requested medical doctor to assess her for yeast infection. Mental Status Exam: General Appearance: Patient is directable, alert, and cooperative. Behavior: Fair eye contact today. Normal psychomotor activity. Speech: Patient's speech is fluent and nonpressured. Mood/Affect: Mood is "fine" Affect is irritable. Suicidality/Homicidality: Currently, the patient denies any suicidal ideation and homicidal ideation Perceptions: Patient denies any auditory or visual hallucinations. Delusion about being Though content/process: Linear and logical in short conversation. Future oriented Memory and concentration: Grossly intact. Judgment and insight: Mildly improving Assessment Schizoaffective disorder, bipolar type Borderline personality disorder Methamphetamine use disorder Cannabis use disorder Cocaine use disorder Plan: -Patient continues to meet criteria for inpatient psychiatric admission for symptom stabilization and safety. Patient is under deferral status however we will file a demand for court due to the patient's nonadherence with treatment. Court scheduled for 06/28/2022. Patient wishes to waive and stipulate court. -Duty to warn completed by nursing staff on 06/17 -Medications: Prolixin decanoate 50 mg IM was administered on 06/12/2022. Patient receives his medication every 2 weeks. Continue abilify 20 mg by mouth daily for mood stabilization. Plan is to transition her to Abilify maintena in lieu of prolixin decanoate on 06/26/2022. Continue Prozac 30 mg by mouth daily for depression Start Seroquel 150 mg qHS for sleep and prazosin 1 mg qHS for nightmares. Start Lamictal 25 mg for mood stabilization. Trazodone 100 mg qHS PRN for sleep. -When necessary Ativan and Thorazine for agitation/aggression. -NRT - nicotine patch -SW on board for discharge planning. Encouraged the patient to participate in milieu.
[2022-06-18] MEDS: LORazepam 2 MG/ML INJ IM PRN (19:37)
[2022-06-18] MEDS: chlorproMAZINE 25 MG/ML 2 ML AMP IM PRN (19:37)
[2022-06-18] MEDS: PRAZOSIN 1 MG CAP PO SCH (20:08)
[2022-06-18] MEDS: QUEtiapine 100 MG TAB PO SCH (20:08)
[2022-06-18] MEDS: hydrOXYzine pamoate 25 MG CAP PO PRN (20:09)
[2022-06-19] MEDS: FLUoxetine HCL 10 MG CAP PO SCH (09:10)
[2022-06-19] MEDS: lamoTRIgine 25 MG TAB PO SCH (09:10)
[2022-06-19] MEDS: MULTIVITAMINS, THERA 1 EACH TAB PO SCH (09:10)
[2022-06-19] MEDS: FLUTICASONE 110 MCG INHALER INHALATION SCH ×2 (09:10→19:42)
[2022-06-19] MEDS: metroNIDAZOLE 500 MG TAB PO SCH ×2 (09:10→19:39)
[2022-06-19] MEDS: hydrOXYzine pamoate 25 MG CAP PO PRN (09:17)
[2022-06-19] MEDS: NICOTINE GUM (POLACRILEX) 2 MG GUM BUCCAL PRN (09:18)
--- NOTE | 2022-06-19 13:20 | P.PN ---
Progress Note - Text Progress Note Date: 06/19/22 Interval History: Patient reports that she is feeling better. She has been in adherent with her medications however reports that she does not want to take Lamictal and she is concerned that she is receiving a rash. However, the patient has been noted by the medical team as well as staff to be somatically focused on itchiness and rational vaginal area. The patient is currently denying any suicidal or homicidal ideation, intention, and/or plan. She is not reporting any auditory or visual hallucinations. She reports no paranoia or other delusions at this time. She was used to waive and stipulate court. She has endorsed a believe that she might be however she has had negative tests. She is currently on a regimen of Abilify, Seroquel, prazosin, and trazodone. She reports no significant side effects of this medication aside from the possible rash from Lamictal. She reports no issues regarding her sleep or her appetite. No reported agitated behaviors as per nursing staff. Mental Status Exam: General Appearance: Patient is directable, alert, and cooperative. Behavior: Fair eye contact today. Normal psychomotor activity. Speech: Patient's speech is fluent and nonpressured. Mood/Affect: Mood is "fine" Affect is labile. Suicidality/Homicidality: Currently, the patient denies any suicidal ideation and homicidal ideation Perceptions: Patient denies any auditory or visual hallucinations. No delusional thought content endorsed today. Though content/process: Linear and logical in short conversation. Future oriented Memory and concentration: Grossly intact. Judgment and insight: Mildly improving Vital Signs Temp 97.9 F 06/18/22 08:24 Pulse 113 H 06/18/22 08:24 Resp 16 06/16/22 14:56 BP 121/76 06/18/22 08:24 Pulse Ox 98 06/14/22 09:28 FiO2 Intake & Output 06/18/22 06/19/22 06/19/22 18:59 06:59 18:59 Weight 97.3 kg Assessment Schizoaffective disorder, bipolar type Borderline personality disorder Methamphetamine use disorder Cannabis use disorder Cocaine use disorder Plan: -Patient continues to meet criteria for inpatient psychiatric admission for symptom stabilization and safety. Patient is under deferral status however we will file a demand for court due to the patient's nonadherence with treatment. Court scheduled for 06/28/2022. Patient wishes to waive and stipulate court. -Duty to warn completed by nursing staff on 06/17 -Medications: Prolixin decanoate 50 mg IM was administered on 06/12/2022. Patient receives his medication every 2 weeks. Continue abilify 20 mg by mouth daily for mood stabilization. Plan is to transi tion her to Abilify maintena in lieu of prolixin decanoate on 06/26/2022. Continue Prozac 30 mg by mouth daily for depression Continue Seroquel 150 mg qHS for sleep and prazosin 1 mg qHS for nightmares. Discontinue Lamictal. Trazodone 100 mg qHS PRN for sleep. -When necessary Ativan and Thorazine for agitation/aggression. -NRT - nicotine patch -SW on board for discharge planning. Encouraged the patient to participate in milieu.
[2022-06-19] MEDS: chlorproMAZINE 25 MG TAB PO PRN (13:39)
[2022-06-19] MEDS: MAGNESIUM HYDROXIDE 2,400 MG/10 ML CUP PO PRN (14:28)
[2022-06-19] MEDS: QUEtiapine 100 MG TAB PO SCH (19:39)
[2022-06-19] MEDS: ACETAMINOPHEN TAB 325 MG TAB PO PRN (19:39)
[2022-06-19] MEDS: PRAZOSIN 1 MG CAP PO SCH (19:39)
[2022-06-19] MEDS: ALBUTEROL INHALER 60 PUFF/8 GM INHALER (MHU) INHALATION PRN (19:39)
[2022-06-20 06:47] VITALS: BP 108/57; PULSE 86; RESP 18; TEMP 98.1
[2022-06-20] MEDS: FLUTICASONE 110 MCG INHALER INHALATION SCH ×2 (08:21→21:41)
[2022-06-20] MEDS: MULTIVITAMINS, THERA 1 EACH TAB PO SCH (08:21)
[2022-06-20] MEDS: FLUoxetine HCL 10 MG CAP PO SCH (08:21)
[2022-06-20] MEDS: metroNIDAZOLE 500 MG TAB PO SCH ×2 (08:22→20:16)
[2022-06-20] MEDS: NICOTINE GUM (POLACRILEX) 2 MG GUM BUCCAL PRN ×2 (09:15→16:00)
[2022-06-20] MEDS: hydrOXYzine pamoate 25 MG CAP PO PRN (12:04)
[2022-06-20] MEDS: chlorproMAZINE 25 MG TAB PO PRN (12:05)
--- NOTE | 2022-06-20 13:16 | P.PN ---
Progress Note - Text Progress Note Date: 06/20/22 Interval History: Patient reports that she is feeling better. She is requesting discharge today. She is currently denying any suicidal or homicidal ideation, intention, and/or plan. She initially reports to this provider that she would like a place to stay such as a shelter upon discharge. Later, the patient was in agreement to going to inpatient substance abuse rehabilitation. However now, the patient is denying the need or desire to go to rehab and is wishing to find a place to stay with her friends. She is currently denying any auditory or visual hallucinations. She is denying any paranoia or other delusions. She is occasionally intrusive with staff and peers. However, the patient is directable and has been in adherent with her medications. She has also signed a waive and stipulated court. Mental Status Exam: General Appearance: Patient is directable, alert, and cooperative. Behavior: Fair eye contact today. Normal psychomotor activity. Speech: Patient's speech is fluent and nonpressured. Mood/Affect: Mood is "okay." Affect is labile. Suicidality/Homicidality: Currently, the patient denies any suicidal ideation and homicidal ideation Perceptions: Patient denies any auditory or visual hallucinations. No delusional thought content endorsed today. Though content/process: Linear and logical in short conversation. Future oriented Memory and concentration: Grossly intact. Judgment and insight: Mildly improving Vital Signs Temp 98.1 F 06/20/22 06:46 Pulse 86 06/20/22 06:46 Resp 18 06/20/22 06:46 BP 108/57 06/20/22 06:46 Pulse Ox 96 06/20/22 06:46 FiO2 Assessment Schizoaffective disorder, bipolar type Borderline personality disorder Methamphetamine use disorder Cannabis use disorder Cocaine use disorder Plan: -Patient continues to meet criteria for inpatient psychiatric admission for symptom stabilization and safety. Patient is under deferral status however we will file a demand for court due to the patient's nonadherence with treatment. Court scheduled for 06/28/2022. Patient waived and stipulated court. -Duty to warn completed by nursing staff on 06/17 -Medications: Prolixin decanoate 50 mg IM was administered on 06/12/2022. Patient receives this medication every 2 weeks. Continue abilify 20 mg by mouth daily for mood stabilization. Plan is to transition her to Abiliy maintena in lieu of prolixin decanoate on 06/26/2022. Continue Prozac 30 mg by mouth daily for depression Continue Seroquel 150 mg qHS for sleep and prazosin 1 mg qHS for nightmares. Trazodone 100 mg qHS PRN for sleep. -When necessary Ativan and Thorazine for agitation/aggression. -NRT - nicotine patch -SW on board for discharge planning. Encouraged the patient to participate in milieu.
[2022-06-20] MEDS: PRAZOSIN 1 MG CAP PO SCH (20:15)
[2022-06-20] MEDS: QUEtiapine 100 MG TAB PO SCH (20:17)
[2022-06-21] MEDS: NICOTINE GUM (POLACRILEX) 2 MG GUM BUCCAL PRN ×2 (07:26→13:14)
[2022-06-21] MEDS: FLUTICASONE 110 MCG INHALER INHALATION SCH (07:59)
[2022-06-21] MEDS: metroNIDAZOLE 500 MG TAB PO SCH (08:00)
[2022-06-21] MEDS: MULTIVITAMINS, THERA 1 EACH TAB PO SCH (08:00)
[2022-06-21] MEDS: FLUoxetine HCL 10 MG CAP PO SCH (08:00)
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
== END 2022-06-21 14:19 | disposition home or self-care (01) | DRG 885 ==
LOC: EC 22:51 → 3MHU 06-11 02:38
PROVIDERS: ADMIT Psychiatry & Neurology Psychiatry; ATTEND Psychiatry & Neurology Psychiatry
DX: F25.0 Schizoaffective disorder, bipolar type (principal); R45.851 Suicidal ideations; T74.21XA Adult sexual abuse, confirmed, initial encounter; F15.20 Other stimulant dependence, uncomplicated; F17.210 Nicotine dependence, cigarettes, uncomplicated; F41.0 Panic disorder [episodic paroxysmal anxiety]; F43.10 Post-traumatic stress disorder, unspecified; F60.3 Borderline personality disorder; G47.00 Insomnia, unspecified; F14.10 Cocaine abuse, uncomplicated; F12.10 Cannabis abuse, uncomplicated; J45.20 Mild intermittent asthma, uncomplicated; Z59.00 Homelessness unspecified; Z79.899 Other long term (current) drug therapy; Z82.5 Family history of asthma and other chronic lower respiratory diseases; Z87.442 Personal history of urinary calculi; Z91.199 Patient's noncompliance with other medical treatment and regimen due to unspecified reason; Z71.51 Drug abuse counseling and surveillance of drug abuser; Z20.822 Contact with and (suspected) exposure to COVID-19; Z28.21 Immunization not carried out because of patient refusal; Z56.0 Unemployment, unspecified; Z88.0 Allergy status to penicillin; Z88.2 Allergy status to sulfonamides; Z88.8 Allergy status to other drugs, medicaments and biological substances
CPT/HCPCS: 36415; 80053; 80143; 80179; 80306; 81001; 81025; 82075; 85025; 86780; 87390; 87491; 87535; 87591; 87635; 96372; 99285

== ENCOUNTER 2022-09-26 09:31 | Inpatient (IN) | payer MEDICAID, OTHER ==
--- NOTE | 2022-09-26 10:49 | ED ---
General Adult HPI - General Chief complaint: Psychiatric Symptoms Stated complaint: Psych eval Time Seen by Provider: 09/26/22 09:37 Source: patient, police, RN notes reviewed, old records reviewed Mode of arrival: ambulatory Limitations: no limitations - History of Present Illness Initial comments: Patient is a 27-year-old female who presents emergency department after being brought in by police on a court-ordered pickup for psychiatric evaluation. The patient states "Radha is on a mental health treatment order, she is not following the fact team's recommendation and placement at [facility] in a crisis bed following the release from alf today. This was signed on 09/22/2022. Patient presents in custody but was changed into green scrubs. She currently has no acute complaints. She was singing at [employer] him his eye and to the room but is cooperative. She currently denies chest pain, shortness breath, abdominal pain, nausea, vomiting. Denies any suicidal, homicidal ideations, attempts, plans. Denies any visual or auditory hallucinations. His no other acute complaints at this time. Denies drug use or alcohol use. He understands that she is here in court order for psychiatric evaluation. - Related Data Home Medications Medication Instructions Recorded Confirmed Albuterol Inhaler [Ventolin Hfa 2 puff INHALATION RT-Q6H PRN 01/31/22 09/26/22 Inhaler] Cetirizine HCl [Zyrtec] 10 mg PO DAILY PRN 01/31/22 09/26/22 Fluticasone Nasal [place] [Flonase 2 spr EA NOSTRIL HS 01/31/22 09/26/22 Nasal [place]] Fluticasone Propionate 2 puff INHALATION RT-BID 01/31/22 09/26/22 [Fluticasone Propionate Hfa 110 MCG (Inhaler)] QUEtiapine [SEROquel] 50 mg PO HS 09/26/22 09/26/22 QUEtiapine [SEROquel] 100 mg PO HS 09/26/22 09/26/22 Previous Rx's Medication Instructions Recorded Melatonin 10 mg PO HS 30 Days tab 02/10/22 ARIPiprazole IM [Abilify Maintena] 400 mg IM QMONTHLY #1 each 06/21/22 ARIPiprazole [Abilify] 20 mg PO DAILY 15 Days tab 06/21/22 FLUoxetine HCL [PROzac] 30 mg PO DAILY 15 Days cap 06/21/22 Prazosin [Minipress] 1 mg PO HS 15 Days cap 06/21/22 traZODone HCL [Desyrel] 100 mg PO HS PRN 15 Days tab 06/21/22 Allergies Allergy/AdvReac Type Severity Reaction Status Date / Time Penicillins Allergy Severe Anaphylaxis Verified 09/26/22 09:35 Sulfa (Sulfonamide Allergy Severe Anaphylaxis Verified 09/26/22 09:35 Antibiotics) diphenhydramine HCl Allergy Nausea Verified 09/26/22 09:35 [From Benadryl] lithium Allergy Unknown Verified 09/26/22 09:35 Review of Systems ROS Statement: Those systems with pertinent positive or pertinent negative responses have been documented in the HPI. Review of Systems: CONST: Denies fever EYES: Denies blurry vision ENT: Denies nasal congestion C/V: Denies Chest pain RESP: Denies shortness of breath GI: Denies abdominal pain : Denies dysuria SKIN: Denies rash. MSK: Denies joint pain. NEURO: Denies headache PSYCH: Denies suicidal and homicidal ideations/plans/attempts. Denies visual or auditory hallucinations. ROS Other: All systems not noted in ROS Statement are negative. 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 Past Psychological History: Anxiety, Bipolar, Depression, Panic Disorder, PTSD, Schizoaffective Disorder Smoking Status: Current every day smoker Past Alcohol Use History: None Reported Past Drug Use History: None Reported - Past Family History Mother Family Medical History: No Reported History Father Family Medical History: No Reported History Additional Family Medical History / Comment(s): bipolar, sever seasonal allergies Brother(s) Family Medical History: No Reported History Sister(s) Family Medical History: COPD General Exam - General Exam Comments Initial Comments: General: Appears in no acute distress. HEAD: Normal with no signs of head trauma. EYES: PERRLA, EOMI, conjunctiva normal, no discharge. Pupils are 3 mm and equal bilaterally. ENT: Hearing grossly intact, normal oropharynx. RESPIRATORY: Clear breath sounds bilaterally. No wheezes, rales, or rhonchi. C/V: Regular rate and rhythm. S1 and S2 auscultated. ABD: Abd is soft, nontender, nondistended EXT: Normal range of motion, no obvious deformity SKIN: No rashes or lesions observed on exposed skin. NEURO: Alert and oriented 4. Limitations: no limitations Course Vital Signs 09/26/22 09:33 Temperature 97.5 F L Pulse Rate 83 Respiratory 18 Rate Blood Pressure 106/71 O2 Sat by Pulse 100 Oximetry Medical Decision Making - Medical Decision Making Was pt. sent in by a medical professional or institution (, PA, HEART DOCTOR, urgent care, hospital, or correction...) When possible be specific @ -No Did you speak to anyone other than the patient for history (EMS, parent, family, police, friend...)? What history was obtained from this source @ -No Did you review nursing and triage notes (agree or disagree)? Why? @ -I reviewed and agree with nursing and triage notes Were old charts reviewed (outside hosp., previous admission, EMS record, old EKG, old radiological studies, urgent care reports/EKG's, correction records)? Report findings @ -I reviewed the patient's court-ordered petition [facility]. It is placed on the chart. Differential Diagnosis (chest pain, altered mental status, abdominal pain women, abdominal pain men, vaginal bleeding, weakness, fever, dyspnea, syncope, headache, dizziness, GI bleed, back pain, seizure, CVA, palpatations, mental health, musculoskeletal)? @ -Differential Mental Health Depression, anxiety, bipolar, psychosis, schizophrenia, borderline personality, situational depression, adjustment disorder, behavioral disorder, brain tumor, malingering, substance abuse, encephalopathy, medication reaction, dementia, hypothyroidism, degenerative neurologic disorder, lupus.... This is not meant to be all-inclusive list EKG interpreted by me (3pts min.). @ -None done X-rays interpreted by me (1pt min.). @ -None done CT interpreted by me (1pt min.). @ -None done U/S interpreted by me (1pt. min.). @ -None done What testing was considered but not performed or refused? (CT, X-rays, U/S, labs)? Why? @ -None What meds were considered but not given or refused? Why? @ -None Did you discuss the management of the patient with other professionals (professionals i.e. , PA, HEART DOCTOR, lab, RT, psych nurse, clinical social worker, cushion builder, teacher, transit police officer, block and case maker)? Give summary @ -Yes, EPS to determine that the patient meets inpatient psych criteria. Was smoking cessation discussed for >3mins.? @ -No Was critical care preformed (if so, how long)? @ -No Were there social determinants of health that impacted care today? How? (Homelessness, low income, unemployed, alcoholism, drug addiction, transportation, low edu. Level, literacy, decrease access to med. care, alf, rehab)? @ -No Was there de-escalation of care discussed even if they declined (Discuss DNR or withdrawal of care, Hospice)? DNR status @ -No What co-morbidities impacted this encounter? (DM, HTN, Smoking, COPD, CAD, Cancer, CVA, ARF, Chemo, Hep., AIDS, mental health diagnosis, sleep apnea, morbid obesity)? @ -None Was patient admitted / discharged? Hospital course, mention meds given and route, prescriptions, significant lab abnormalities, going to OR and other pertinent info. @ -Based on the patient's presentation and physical exam, I do believe she requires mental health evaluation. She was placed in green scrubs. Sit her was ordered. She is not suicidal. Not homicidal at this time. She is cooperative. BAT is 0. UDS is pending. Vital signs within except for limits. At this time, patient is medically cleared for evaluation by psychiatry. Disposition is pending psychiatric evaluation. EPS was notified of the patient. EPS evaluated the patient, determined that the patient meets inpatient criteria. Covid is negative. Patient will be admitted to inpatient psychiatry. Undiagnosed new problem with uncertain prognosis? @ -No Drug Therapy requiring intensive monitoring for toxicity (Heparin, Nitro, Insulin, Cardizem)? @ -No Were any procedures done? @ -No Diagnosis/symptom? @ -Acute psychosis NOS Acute, or Chronic, or Acute on Chronic? @ -Acute Uncomplicated (without systemic symptoms) or Complicated (systemic symptoms)? @ -Uncomplicated Side effects of treatment? @ -No Exacerbation, Progression, or Severe Exacerbation? @ -No Poses a threat to life or bodily function? How? (Chest pain, USA, LA, pneumonia, PE, COPD, DKA, ARF, appy, cholecystitis, CVA, Diverticulitis, Homicidal, Suicidal, threat to staff... and all critical care pts) @ -Yes, could be a threat to staff or herself based on her current psychiatric condition. - Lab Data Lab Results 09/26/22 Range/Units 12:48 Coronavirus (PCR) Not Detected (Not Detectd) Disposition Clinical Impression: Acute psychosis Disposition: ADMITTED IP TO THIS HOSP Condition: Stable Time of Disposition: 12:40
[2022-09-26] MEDS ORDERED: ALBUTEROL INHALER 60 PUFF/8 GM INHALER (MHU) INHALATION PRN (14:11)
[2022-09-26] MEDS ORDERED: traZODone HCL 100 MG TAB PO PRN (14:11)
[2022-09-26] MEDS ORDERED: LORATADINE 10 MG TAB PO PRN (14:11)
[2022-09-26] MEDS ORDERED: MAG HYDROX/AL HYDROX/SIMETH 30 ML CUP PO PRN (14:12)
[2022-09-26] MEDS ORDERED: chlorproMAZINE 25 MG TAB PO PRN (14:16)
--- NOTE | 2022-09-26 17:46 | P.HPMEDMHU ---
History of Present Illness H&P Date: 09/26/22 Patient is a 27-year-old female with history of migraine headaches, closed head injury as a child, elevated liver enzymes, GERD, asthma, and psoriasis was then admitted to the mental health unit. Apparently she she was released from snf absconded from the ACT team during an intake for [facility]. She therefore was brought in on a pickup order. Patient seen and examined at bedside nursing present. She is very withdrawn during our conversation. She does not want to participate. She denies any recent cough, cold, fever, flu, nausea, vomiting, chest pain, shortness of breath, and dysuria. Vital signs reviewed Despite multiple attempts patient continues to dictated physical exam. General: nontoxic, no distress, appears at stated age Eyes: EOMI, no lid lag, anicteric sclera ENT: Nose and ears atraumatic Neuro: CN II-XII grossly intact, moving all 4 extremities independently as observed by her adjusting in bed. Psych: Alert, oriented, blunted affect, appears withdrawn Assessment: Asthma, no exacerbation based on lac of symptoms GERD hx elevated liver enzymes Psoriasis HX Migraine MCBRIDE Imaging: None available for review. Data Review: KIERSTEN nieto negative Plan: - albuterol 2 puffs as needed for shortness of breath, claritin as needed for nasal discharge - Awaiti CBC and CMP, A1C-- with use of antipsychotics - Await TSH for possability of thyroid disorder affecting mood/behaviors Thank you for allowing us to participate in the care of this pleasant patient. Do not hesitate to contact us with questions. Someone can be reached from the [facility] hospitalist group all hours of the day at [phone] or via [employer]. This dictation was prepared using [employer] voice recognition software. Though every attempt is made to correct errors during during dictation some may still exist. 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 Past Psychological History: Anxiety, Bipolar, Depression, Panic Disorder, PTSD, Schizoaffective Disorder Smoking Status: Current every day smoker Past Alcohol Use History: None Reported Past Drug Use History: None Reported - Past Family History Mother Family Medical History: No Reported History Father Family Medical History: No Reported History Additional Family Medical History / Comment(s): bipolar, sever seasonal allergies Brother(s) Family Medical History: No Reported History Sister(s) Family Medical History: COPD Medications and Allergies Home Medications Medication Instructions Recorded Confirmed Type Albuterol Inhaler [Ventolin Hfa 2 puff INHALATION RT-Q6H PRN 01/31/22 09/26/22 History Inhaler] Cetirizine HCl [Zyrtec] 10 mg PO DAILY PRN 01/31/22 09/26/22 History Fluticasone Nasal [place] [Flonase 2 spr EA NOSTRIL HS 01/31/22 09/26/22 History Nasal [place]] Fluticasone Propionate 2 puff INHALATION RT-BID 01/31/22 09/26/22 History [Fluticasone Propionate Hfa 110 MCG (Inhaler)] Melatonin 10 mg PO HS 30 Days tab 02/10/22 09/26/22 Rx ARIPiprazole IM [Abilify Maintena] 400 mg IM QMONTHLY #1 each 06/21/22 09/26/22 Rx ARIPiprazole [Abilify] 20 mg PO DAILY 15 Days tab 06/21/22 09/26/22 Rx FLUoxetine HCL [PROzac] 30 mg PO DAILY 15 Days cap 06/21/22 09/26/22 Rx Prazosin [Minipress] 1 mg PO HS 15 Days cap 06/21/22 09/26/22 Rx traZODone HCL [Desyrel] 100 mg PO HS PRN 15 Days tab 06/21/22 09/26/22 Rx QUEtiapine [SEROquel] 50 mg PO HS 09/26/22 09/26/22 History QUEtiapine [SEROquel] 100 mg PO HS 09/26/22 09/26/22 History Allergies Allergy/AdvReac Type Severity Reaction Status Date / Time Penicillins Allergy Severe Anaphylaxis Verified 09/26/22 09:35 Sulfa (Sulfonamide Allergy Severe Anaphylaxis Verified 09/26/22 09:35 Antibiotics) diphenhydramine HCl Allergy Nausea Verified 09/26/22 09:35 [From Benadryl] lithium Allergy Unknown Verified 09/26/22 09:35 Physical Exam Osteopathic Statement: *. No significant issues noted on an osteopathic structural exam other than those noted in the History and Physical/Consult. Vitals: Vital Signs Temp Pulse Resp BP Pulse Ox 09/26/22 09:33 97.5 F L 83 18 106/71 100 Intake and Output 09/26/22 09/26/22 09/26/22 06:59 14:59 22:59 Other: Weight 74.843 kg Cranial Nerve Examination - Cranial Nerves Cranial Nerve II- Optic: Intact Cranial Nerve III- Oculomotor: Intact Cranial Nerve IV- Trochlear: Intact Cranial Nerve V- Trigeminal: Intact Cranial Nerve - Abducens: Intact Cranial Nerve VII- Facial: Intact Cranial Nerve VIII- Auditory: Intact Cranial Nerve IX- Glossopharyngeal: Intact Cranial Nerve X- Vagus: Intact Cranial Nerve XI- Accessory: Intact Cranial Nerve XII- Hypoglossal: Intact
[2022-09-27] MEDS: FLUTICASONE 110 MCG INHALER (MHU) INHALATION SCH ×4 (05:05→22:06)
[2022-09-27] MEDS: FLUTICASONE 50MCG/SPRAY NASAL 16GM EA NOSTRIL SCH ×2 (05:05→22:07)
[2022-09-27] MEDS: QUEtiapine 50 MG TAB PO SCH ×2 (05:06→22:07)
[2022-09-27] MEDS: QUEtiapine 100 MG TAB PO SCH ×2 (05:06→22:07)
[2022-09-27] MEDS: PRAZOSIN 1 MG CAP PO SCH ×2 (05:06→22:07)
[2022-09-27] MEDS: MELATONIN 5 MG TABLET PO SCH ×2 (05:06→22:07)
[2022-09-27] MEDS: FLUoxetine HCL 10 MG CAP PO SCH ×2 (10:55→13:53)
--- NOTE | 2022-09-27 13:02 | P.HP ---
Psychiatric H&P - . H&P Date: 09/27/22 History & Physical: Allergies Allergy/AdvReac Type Severity Reaction Status Date / Time Penicillins Allergy Severe Anaphylaxis Verified 09/26/22 17:54 Sulfa (Sulfonamide Allergy Severe Anaphylaxis Verified 09/26/22 17:54 Antibiotics) diphenhydramine HCl Allergy Nausea Verified 09/26/22 17:54 [From Benadryl] lithium Allergy Unknown Verified 09/26/22 17:54 Vital Signs Temp 98.5 F 09/26/22 16:20 Pulse 76 09/26/22 16:20 Resp 16 09/26/22 16:20 BP 105/59 09/26/22 16:20 Pulse Ox 98 09/26/22 16:20 FiO2 Intake & Output 09/26/22 09/27/22 09/27/22 18:59 06:59 18:59 Weight 78.608 kg Laboratory Last Values Coronavirus (PCR) Not Detected (Not Detectd) 09/26/22 12:48 09/27/22 13:01 IDENTIFYING DATA: Patient is a single, unemployed, 27-year-old female who presented to the hospital by police after an order for noncompliance was completed by her ACT team. HPI: Patient presented to the hospital on 09/26/2022, brought into the hospital by police on a pickup order for noncompliance with treatment. The patient was [facility] on [facility]22 was picked up by ACT staff members. She was brought to [facility] for an assessment prior to going to [facility]. However, as staff attempted to screen the patient, she became very upset and refuse to go to the retirement. The patient left [facility] and ACT team was unable to locate her. The patient was found by police and brought to the emergency department. When assessed in the emergency department, the patient reported that she was being illegally brought to the hospital and being illegally admitted on to the psychiatric unit. She reported "the paperwork is illegal. All of it." The patient was also noted to urinate on the floor of the emergency department. She was subsequently admitted onto our psychiatric unit. The patient is currently under court order for mental health treatment until 12/25/2022. The patient last received Abilify maintena 400 mg IM on 09/22/2022. The patient has been primarily isolative to herself in her room. She has refused to provide any urine sample. Upon assessment by this provider, the patient is denying any suicidal or homicidal ideation, intention, and/or plan. She is denying any auditory or visual hallucinations. She is not reporting any paranoia or other delusions. She expresses that she is only here so that she may be discharged to a retirement. She has been adherent with her medications and is not endorsing any significant side effects. When inquiring about any substance abuse, the patient denies any use of any tobacco, methamphetamines, alcohol, or illicit drugs. PAST PSYCHIATRIC HISTORY: Patient states that the patient has a significant history of schizoaffective disorder, cocaine use disorder, and borderline personality disorder. The patient has been on numerous medications and is currently on a regimen of Seroquel, Abilify maintena, trazodone, and Prozac. She was last hospitalized in our psychiatric unit in May 2022. She is open with the ACT team with [facility]. She denies any prior attempts at suicide. 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 Past Psychological History: Anxiety, Bipolar, Depression, Panic Disorder, PTSD, Schizoaffective Disorder Smoking Status: Current every day smoker Past Alcohol Use History: None Reported Past Drug Use History: None Reported ALLERGIES: Allergies Allergy/AdvReac Type Severity Reaction Status Date / Time Penicillins Allergy Severe Anaphylaxis Verified 09/26/22 17:54 Sulfa (Sulfonamide Allergy Severe Anaphylaxis Verified 09/26/22 17:54 Antibiotics) diphenhydramine HCl Allergy Nausea Verified 09/26/22 17:54 [From Benadryl] lithium Allergy Unknown Verified 09/26/22 17:54 CHEMICAL DEPENDENCY HISTORY: The patient is denying any substance abuse however has a significant history of cocaine and THC use. She also has a history of methamphetamine abuse. No urine sample provided by the patient at this time. FAMILY PSYCHIATRIC/SUBSTANCE USE HISTORY: The brother reportedly has autism. SOCIAL HISTORY: Patient was born and raised in patient was born and raised in [place]. She has 1 younger brother and one younger sister. She has recently incarcerated and released on 09/22/2022. MENTAL STATUS EXAM: General Appearance: Patient appears to be stated age is alert, however not really directable and refuses to cooperate beyond a superficial level. Patient a ppears to have fair hygiene and grooming. Behavior: Patient is lying down in bed with her back towards this provider. Poor eye contact. Speech: Patient's speech is fluent and nonpressured. Short and kamari. Mood/Affect: Patient reports their mood is "I'm fine," affect is irritable Suicidality/Homicidality: Patient is denying any suicidal or homicidal ideation Perceptions: Patient denies any visual hallucinations and denies any auditory hallucinations Though content/process: [place]. Memory and concentration: Grossly intact Judgment and insight: Very poor at baseline STRENGTHS/WEAKNESSES: strength is that patient is resilient. Weakness is that the patient engaged in polysubstance abuse and has very poor ego integrity. INTELLECT: Below average to average IMPRESSIONS: Schizoaffective disorder, bipolar type Borderline personality disorder Methamphetamine use disorder, by history Cocaine use disorder, by history Cannabis use disorder, by history Tobacco use disorder, by history PLAN: -Patient is admitted under involuntary status to [facility] for stabilization of psychiatric symptoms and safety. Patient is currently under court order for mental health treatment until 12/25/2022. -Medications : Will start patient on Prozac 30 mg daily for depression/anxiety/PTSD Prazosin 1 mg by mouth at bedtime for PTSD related nightmares Seroquel 150 mg by mouth at bedtime for mood stabilization Abilify Maintena 400 mg IM was last administered on 09/22/2022. -Thorazine and Ativan PRN for agitation/aggression -Patient was counselled on substance abuse and denies any current substance use -Patient was informed of the risks, benefits and side effects of the medication and patient verbally consented to taking the medications. -Internal Medicine consult to perform medical evaluation and physical. -NRT - nicotine patch -SW on board for discharge planning. Encourage patient to participate in groups to work on coping skills. 09/27/22 13:02
[2022-09-28] MEDS: FLUTICASONE 110 MCG INHALER (MHU) INHALATION SCH ×2 (09:28→20:24)
[2022-09-28] MEDS: FLUoxetine HCL 10 MG CAP PO SCH (09:28)
[2022-09-28 12:00] LABS: Appearance,Urine Cloudy (Clear); Bacteria,Urine Rare /hpf; Bilirubin,Urine Negative (Negative); Blood,Urine Negative (Negative); Color,Urine Yellow; Glucose,Urine (UA) Negative (Negative); Ketones,Urine Negative (Negative); Leukocyte Esterase,Urine Trace (Negative); Mucus,Urine Few /hpf; Nitrite,Urine Negative (Negative); PH, Urine 6.5 (5.0-8.0); Protein,Urine Trace (Negative); RBC,Urine 3 /hpf (0-5); Specific Gravity,Urine 1.023 (1.001-1.035); Squamous Epithelial Cell,Urine 29 /hpf (0-4); Urobilinogen,Urine <2.0 mg/dL (<2.0); WBC,Urine 4 /hpf (0-5)
--- NOTE | 2022-09-28 13:13 | P.PN ---
Progress Note - Text Progress Note Date: 09/28/22 Interval History: Patient was seen resting in bed and was directable and agreeable to speak with selling underwriter in her room., The patient is denying any suicidal or homicidal ideation, intention, and/or plan. She is not reporting any auditory. She is denying any paranoia or delusions. She continues to vehemently deny any substance abuse. [facility] informed this provider that the ACT team is looking into the patient going to rehab or finding appropriate housing including the possibility of locked AFC. However, the patient expresses no desire to go to rehab because she "I'm not taking any drugs." She is currently agreeable to continued inpatient hospitalization until housing is decided. Mental Status Exam: General Appearance: Patient appears to be stated age is alert, directable, and cooperative. Behavior: Patient is calmly seated without any agitated behavior. Speech: Patient's speech is fluent and nonpressured. Mood/Affect: Mood is improving mildly, affect is congruent and constricted. Suicidality/Homicidality: Patient denies having any suicidal or homicidal mauricio ation intent or plan. Perceptions: Patient denies any visual hallucinations and denies any auditory hallucinations Though content/process: There is no evidence of any delusional thought content and thought process is linear and goal-directed. Memory and concentration: AOX3, grossly intact for the purposes of this session Judgment and insight: Fair Vital Signs Temp 98.5 F 09/26/22 16:20 Pulse 76 09/26/22 16:20 Resp 16 09/26/22 16:20 BP 105/59 09/26/22 16:20 Pulse Ox 98 09/26/22 16:20 FiO2 Laboratory Results Urine Color Yellow 09/28/22 11:38 Urine Appearance Cloudy (Clear) H 09/28/22 11:38 Urine pH 6.5 (5.0-8.0) 09/28/22 11:38 Ur Specific [place] 1.023 (1.001-1.035) 09/28/22 11:38 Urine Protein Trace (Negative) H 09/28/22 11:38 Urine Glucose (UA) Negative (Negative) 09/28/22 11:38 Urine Ketones Negative (Negative) 09/28/22 11:38 Urine Blood Negative (Negative) 09/28/22 11:38 Urine Nitrite Negative (Negative) 09/28/22 11:38 Urine Bilirubin Negative (Negative) 09/28/22 11:38 Urine Urobilinogen <2.0 mg/dL (<2.0) 09/28/22 11:38 Ur Leukocyte Esterase Trace (Negative) H 09/28/22 11:38 Urine RBC 3 /hpf (0-5) 09/28/22 11:38 Urine WBC 4 /hpf (0-5) 09/28/22 11:38 Ur Squamous Epith Cells 29 /hpf (0-4) H 09/28/22 11:38 Urine Bacteria Rare /hpf (None) H 09/28/22 11:38 Urine Mucus Few /hpf (None) H 09/28/22 11:38 Urine HCG, Qual Not Detected (Not Detectd) 09/28/22 11:38 Coronavirus (PCR) Not Detected (Not Detectd) 09/26/22 12:48 Assessment Schizoaffective disorder, bipolar type Borderline personality disorder Methamphetamine use disorder, by history Cocaine use disorder, by history Cannabis use disorder, by history Tobacco use disorder, by history Plan: -Patient continues to meet criteria for inpatient psychiatric admission for symptom stabilization and safety. Patient has signed adult voluntary form and medication consent and was placed in patient's chart. -Medications: Prozac 30 mg daily for depression/anxiety/PTSD Prazosin 1 mg by mouth at bedtime for PTSD related nightmares Seroquel 150 mg by mouth at bedtime for mood stabilization Abilify Maintena 400 mg IM was last administered on 09/22/2022. -When necessary Thorazine and Ativan for agitation/aggression. -NRT - nicotine patch -SW on board for discharge planning. Encouraged the patient to participate in milieu.
[2022-09-28] MEDS: ACETAMINOPHEN TAB 325 MG TAB PO PRN (16:11)
[2022-09-28] MEDS: MAGNESIUM HYDROXIDE 2,400 MG/10 ML CUP PO PRN (16:11)
[2022-09-28] MEDS: MELATONIN 5 MG TABLET PO SCH (20:21)
[2022-09-28] MEDS: PRAZOSIN 1 MG CAP PO SCH (20:22)
[2022-09-28] MEDS: QUEtiapine 50 MG TAB PO SCH (20:22)
[2022-09-28] MEDS: QUEtiapine 100 MG TAB PO SCH (20:22)
[2022-09-28] MEDS: FLUTICASONE 50MCG/SPRAY NASAL 16GM EA NOSTRIL SCH (20:24)
[2022-09-28 23:07] LABS: Urine Alcohol Negative (Negative); Urine Barbiturate Negative (Negative); Urine Cocaine Negative (Negative); Urine Methadone Negative (Negative); Urine Opiates Negative (Negative); Urine Phencyclidine Negative (Negative)
[2022-09-29] MEDS: FLUoxetine HCL 10 MG CAP PO SCH (07:56)
[2022-09-29] MEDS: FLUTICASONE 110 MCG INHALER (MHU) INHALATION SCH ×2 (07:57→20:06)
[2022-09-29] MEDS: ACETAMINOPHEN TAB 325 MG TAB PO PRN (09:13)
[2022-09-29] MEDS: FLUTICASONE 50MCG/SPRAY NASAL 16GM EA NOSTRIL SCH (20:05)
[2022-09-29] MEDS: MAGNESIUM HYDROXIDE 2,400 MG/10 ML CUP PO PRN (20:05)
[2022-09-29] MEDS: MELATONIN 5 MG TABLET PO SCH (20:06)
[2022-09-29] MEDS: PRAZOSIN 1 MG CAP PO SCH (20:06)
[2022-09-29] MEDS: QUEtiapine 50 MG TAB PO SCH (20:06)
[2022-09-29] MEDS: QUEtiapine 100 MG TAB PO SCH (20:06)
[2022-09-30] MEDS: FLUTICASONE 110 MCG INHALER (MHU) INHALATION SCH ×2 (09:53→20:40)
[2022-09-30] MEDS: FLUoxetine HCL 10 MG CAP PO SCH (09:53)
[2022-09-30] MEDS: ACETAMINOPHEN TAB 325 MG TAB PO PRN (18:18)
[2022-09-30] MEDS: PRAZOSIN 1 MG CAP PO SCH (20:41)
[2022-09-30] MEDS: FLUTICASONE 50MCG/SPRAY NASAL 16GM EA NOSTRIL SCH (20:41)
[2022-09-30] MEDS: QUEtiapine 50 MG TAB PO SCH (20:41)
[2022-09-30] MEDS: QUEtiapine 100 MG TAB PO SCH (20:41)
[2022-09-30] MEDS: MELATONIN 5 MG TABLET PO SCH (20:41)
[2022-09-30] MEDS: NICOTINE 7MG/24HR PATCH TRANSDERM SCH (21:02)
[2022-10-01] MEDS: ACETAMINOPHEN TAB 325 MG TAB PO PRN (01:27)
[2022-10-01] MEDS: chlorproMAZINE 25 MG/ML 2 ML AMP IM PRN ×2 (01:41→22:34)
[2022-10-01] MEDS: LORazepam 2 MG/ML INJ IM PRN ×2 (01:42→22:34)
[2022-10-01] MEDS: FLUoxetine HCL 10 MG CAP PO SCH (10:21)
[2022-10-01] MEDS: NICOTINE 7MG/24HR PATCH TRANSDERM SCH (10:22)
[2022-10-01] MEDS: FLUTICASONE 110 MCG INHALER (MHU) INHALATION SCH ×2 (10:27→20:22)
[2022-10-01] MEDS: MULTIVITAMINS, THERA 1 EACH TAB PO SCH (12:55)
[2022-10-01] MEDS: ASCORBIC ACID 500 MG TAB PO SCH (12:55)
--- NOTE | 2022-10-01 19:02 | P.PN ---
Progress Note - Text Progress Note Date: 10/01/22 Interval history: Patient was seen lingering in the hallways and was directable and agreeable to speak with content writer. She is a poor historian, appears guarded and appears to minimize her symptoms. She reports her mood, sleep and appetite are all "fine". She denies any suicidal or homicidal ideation, intent or plan. She denies any auditory or visual hallucinations, but at times appears to be attending to internal stimuli and expresses an odd stare. Patient denies any side effects from the medications and has been compliant with meds. Her insight continues to be be poor and she hopes to be discharged either to her mother's house or "my boyfriend Joseluis Nagy's" house. Patient has a guardian and the plan is to discharge patient back to the jail. Patient reports today she is not interested in returning to the jail because it is "dirty" and she doesn't "like the staff". Per nursing report, patient had an incident last night at around 1:30am where she became agitated at the nursing station, was demanding to get a Tylenol and yelling at the staff that they need to go faster. She continued to be disruptive, yell, sit on the floor, refused to cooperate, continued yelling down the hallway to wake other patient's up. She required Thorazine 50 mg IM x 1 for agitation and Ativan 2mg IM x 1 for anxiety. Today, several patient's have complained they were woken up by this disruption last night. She continues to ask if she is , despite being reassured she is not due to negative test. Mental status exam: General Appearance: Patient appears to be stated age, overweight, dressed in casual attire and gown. Behavior: Patient is standing in the hallway, staring at others, guarded. Speech: Patient's speech is fluent, monotone, normal rate. Mood/Affect: Mood is improving mildly, affect is congruent and constricted. Suicidality/Homicidality: Patient denies having any suicidal or homicidal ideation, intent or plan. Perceptions: Patient denies any auditory or visual hallucinations, but there is concern she may be attending to internal stimuli. Though content/process: There is evidence of delusional thought content, and thought process is concrete. Memory and concentration: AOX3, grossly intact for the purposes of this session Judgment and insight: chronically poor, hence has a guardian Assessment/Plan: Continue with current diagnosis. Patient continues to meet criteria for inpatient psychiatric admission for symptom stabilization and safety. Will attempt to reach her psychiatrist at [facility] tomorrow to discuss medications. Increase Seroquel from 150 mg QHS to 200 mg QHS for psychosis/mood stabilization/sleep. Continue Prozac 30 mg daily for depressed mood. Continue Prazosin 1 mg QHS for nightmares. Continue Trazodone 100 mg QHS PRN for sleep. (Has not been taking) She received Abilify Maintena 400 mg IM on 09/22/2022 at [facility]. She is on a court order for mental health treatment until 12/25/22. Monitor for medication compliance and for any psychotropic medication side effects. Will continue to monitor ongoing response to treatment. Encouraged participation in milieu.
--- NOTE | 2022-10-01 19:13 | P.PN ---
Progress Note - Text Progress Note Date: 09/30/22 Interval history: Patient was seen wandering the hallways and was agreeable to speak with property underwriter. She continues to stare with odd affect, appears at times to be attending to internal stimuli. Thought process is concrete. She claims her mood, sleep and appetite are all "fine", however she is an unreliable historian. At this time, patient denies any suicidal or homicidal ideation, intent or plan. Denies any auditory or visual hallucinations. Patient denies any side effects from the medications and has been compliant with meds. She continues to fixate on discharge. She also requests to be "tested for everything" for lab work etc. Per staff, patient only slept 4 hours last night, but did sleep 7+ hours the night before that. Mental status exam: General Appearance: Patient appears to be stated age, overweight, dressed in casual attire and gown. Behavior: Patient is standing in the hallway, staring at others, guarded. Speech: Patient's speech is fluent, monotone, normal rate, non-pressured. Mood/Affect: Mood is improving mildly, affect is odd. Suicidality/Homicidality: Patient denies having any suicidal or homicidal ideation, intent or plan. Perceptions: Patient denies any auditory or visual hallucinations, but there is concern she may be attending to internal stimuli. Though content/process: There is evidence of delusional thought content, and thought process is concrete. Memory and concentration: AOX3, grossly intact for the purposes of this session Judgment and insight: chronically poor, hence has a guardian Assessment/Plan: Continue with current diagnosis. Patient continues to meet criteria for inpatient psychiatric admission for symptom stabilization and safety. Will attempt to reach her psychiatrist at [facility] on Sunday to discuss medications. Continue Seroquel 150 mg QHS for psychosis/mood stabilization/sleep. Continue Prozac 30 mg daily for depressed mood. Continue Prazosin 1 mg QHS for nightmares. Continue Trazodone 100 mg QHS PRN for sleep. She received Abilify Maintena 400 mg IM on 09/22/2022 at [facility]. She is on a court order for mental health treatment until 12/25/22. Monitor for medication compliance and for any psychotropic medication side effects. Will continue to monitor ongoing response to treatment. Encouraged participation in milieu.
--- NOTE | 2022-10-01 19:20 | P.PN ---
Progress Note - Text Progress Note Date: 09/29/22 Interval history: (Late entry due to computer problems on 09/29/22). Patient was seen sitting calmly on her bed reading a book. She was directable and agreeable to speak with feature writer. She reports her mood, sleep and appetite are "fine". She has an odd stare, otherwise does not appear to be attending to internal stimuli. At this time patient denies any suicidal or homicidal ideation, intent or plan. Denies any auditory or visual hallucinations. Patient denies any side effects from the medications and has been compliant with meds. She reports she wants to be discharged to "my boyfriend Joseluis Nagy's house". We discussed because she has a guardian, [facility] with work with patient and her guardian regarding housing placement. She is fixated on if she is , and we discussed that her test was negative which she appeared to accept as positive news. Discussed case with licensed clinical social worker who has contacted [facility] about housing placement. Mental status exam: General Appearance: Patient appears to be stated age, overweight, dressed in casual attire. Behavior: Patient is sitting on her bed reading a book, guarded. Speech: Patient's speech is fluent, monotone, normal rate. Mood/Affect: Mood is "fine", affect is odd and constricted. Suicidality/Homicidality: Patient denies having any suicidal or homicidal ideation, intent or plan. Perceptions: Patient denies any auditory or visual hallucinations. Though content/process: There is evidence of delusional thought content, and thought process is concrete. Memory and concentration: AOX3, grossly intact for the purposes of this session Judgment and insight: chronically poor, hence has a guardian Assessment/Plan: Continue with current diagnosis. Patient continues to meet criteria for inpatient psychiatric admission for symptom stabilization and safety. Patient will be maintained on current psychotropic medication regimen. Monitor for medication compliance and for any psychotropic medication side effects. Will continue to monitor ongoing response to treatment. Encouraged participation in milieu.
[2022-10-01] MEDS: FLUTICASONE 50MCG/SPRAY NASAL 16GM EA NOSTRIL SCH (20:21)
[2022-10-01] MEDS: QUEtiapine 100 MG TAB PO SCH (20:22)
[2022-10-01] MEDS: MELATONIN 5 MG TABLET PO SCH (20:22)
[2022-10-01] MEDS: PRAZOSIN 1 MG CAP PO SCH (20:22)
[2022-10-02] MEDS: FLUoxetine HCL 10 MG CAP PO SCH (09:02)
[2022-10-02] MEDS: NICOTINE 7MG/24HR PATCH TRANSDERM SCH (09:02)
[2022-10-02] MEDS: ASCORBIC ACID 500 MG TAB PO SCH (09:02)
[2022-10-02] MEDS: MULTIVITAMINS, THERA 1 EACH TAB PO SCH (09:02)
[2022-10-02] MEDS: ACETAMINOPHEN TAB 325 MG TAB PO PRN ×2 (09:03→13:07)
[2022-10-02] MEDS: FLUTICASONE 110 MCG INHALER (MHU) INHALATION SCH ×2 (09:05→20:23)
[2022-10-02] MEDS: MAGNESIUM HYDROXIDE 2,400 MG/10 ML CUP PO PRN (19:07)
--- NOTE | 2022-10-02 20:06 | P.PN ---
Progress Note - Text Progress Note Date: 10/02/22 Interval history: Patient was seen lingering in the hallways, staring, also knocking on psychiatrist's door asking to be seen. She is a poor historian, appears guarded and appears to minimize her symptoms. She denies any suicidal or homicidal ideation, intent or plan. She denies any auditory or visual hallucinations, but at times appears to be attending to internal stimuli and expresses an odd stare. Patient denies any side effects from the medications and has been compliant with meds. She claims she has been cleared for discharged and remains fixated on her boyfriend Joseluis Nagy's house. Last night at around 11pm, patient became loud and agitated on the phone, yelling that her "kids" were "given to foster care". Patient was loud, distressed, unable to be redirected. She required Thorazine 50 mg IM x 1 for agitation and Ativan 2mg IM x 1 for anxiety last night, and also had this same combination of PRNs two nights ago for agitation. Today, patient agrees she benefited from the Thorazine she received and agrees to start Thorazine 50 mg QHS for psychosis. Mental status exam: General Appearance: Patient appears to be stated age, overweight, dressed in casual attire and gown. Behavior: Patient is standing in the hallway, staring at others, guarded. Speech: Patient's speech is fluent, monotone, normal rate. Mood/Affect: Mood is irritable, affect is congruent and constricted. Suicidality/Homicidality: Patient denies having any suicidal or homicidal ideat ion, intent or plan. Perceptions: Patient denies any auditory or visual hallucinations, but there is concern she may be attending to internal stimuli. Though content/process: There is evidence of delusional thought content, and thought process is concrete. Memory and concentration: AOX3, grossly intact for the purposes of this session Judgment and insight: chronically poor, hence has a guardian Assessment/Plan: Continue with current diagnosis. Patient continues to meet criteria for inpatient psychiatric admission for symptom stabilization and safety. Start Thorazine 50 mg QHS for psychosis. Continue Seroquel 200 mg QHS for psychosis/mood stabilization/sleep. Continue Prozac 30 mg daily for depressed mood. Continue Prazosin 1 mg QHS for nightmares. Continue Trazodone 100 mg QHS PRN for sleep. (Has not been taking) She received Abilify Maintena 400 mg IM on 09/22/2022 at [facility]. She is on a court order for mental health treatment until 12/25/22. Monitor for medication compliance and for any psychotropic medication side effects. Will continue to monitor ongoing response to treatment. Encouraged participation in milieu.
[2022-10-02] MEDS: FLUTICASONE 50MCG/SPRAY NASAL 16GM EA NOSTRIL SCH (20:23)
[2022-10-02] MEDS: PRAZOSIN 1 MG CAP PO SCH (20:24)
[2022-10-02] MEDS: chlorproMAZINE 25 MG TAB PO SCH (20:24)
[2022-10-02] MEDS: QUEtiapine 100 MG TAB PO SCH (20:24)
[2022-10-02] MEDS: MELATONIN 5 MG TABLET PO SCH (20:24)
[2022-10-03] MEDS: ACETAMINOPHEN TAB 325 MG TAB PO PRN ×5 (00:28→23:34)
[2022-10-03] MEDS ORDERED: BENZOCAINE 20 % GEL 11.9 GM TUBE MM ONE ×2 (02:00→17:53)
[2022-10-03] MEDS: ASCORBIC ACID 500 MG TAB PO SCH (08:18)
[2022-10-03] MEDS: MULTIVITAMINS, THERA 1 EACH TAB PO SCH (08:18)
[2022-10-03] MEDS: NICOTINE 7MG/24HR PATCH TRANSDERM SCH (08:18)
[2022-10-03] MEDS: FLUoxetine HCL 10 MG CAP PO SCH (08:18)
[2022-10-03] MEDS: FLUTICASONE 110 MCG INHALER (MHU) INHALATION SCH ×2 (08:44→20:06)
--- NOTE | 2022-10-03 11:38 | P.PN ---
Progress Note - Text Progress Note Date: 10/03/22 Interval History: Patient was seen wandering the hallways and was agreeable to speak with the leader writer in the office. Currently, the patient is not reporting any suicidal or homicidal ideation, intention, and/or plan. She is not reporting any auditory or visual hallucinations. She is denying any paranoia or other delusions. She has been adherent with her medication is not endorsing any significant side effects. The patient is not endorsing any agitation today. She has been adherent with her medication and is not endorsing any significant side effects. She is inquiring about discharge. She was informed that we are working on discharging her to [facility] tomorrow. She is agreeable with this plan. Mental Status Exam: General Appearance: Patient appears to be stated age is alert, directable, and cooperative. Behavior: Patient is calmly seated without any agitated behavior. Speech: Patient's speech is fluent and nonpressured. Mood/Affect: Mood is improving mildly, affect is congruent and constricted. Suicidality/Homicidality: Patient denies having any suicidal or homicidal ideation intent or plan. Perceptions: Patient denies any visual hallucinations and denies any auditory hallucinations Though content/process: There is no evidence of any delusional thought content and thought process is linear and goal-directed. Memory and concentration: AOX3, grossly intact for the purposes of this session Judgment and insight: Fair Vital Signs Temp 97.1 F L 10/01/22 06:54 Pulse 82 10/01/22 06:54 Resp 18 10/01/22 06:54 BP 112/62 10/01/22 06:54 Pulse Ox 95 10/01/22 06:54 FiO2 Assessment Schizoaffective disorder, bipolar type Borderline personality disorder Cannabis use disorder Methamphetamine use disorder, by history Cocaine use disorder, by history Tobacco use disorder, by history Plan: -Patient continues to meet criteria for inpatient psychiatric admission for symptom stabilization and safety. Patient has signed adult voluntary form and medication consent and was placed in patient's chart. -Medications: Thorazine 50 mg by mouth at bedtime for agitation Prozac 30 mg daily for depression/anxiety/PTSD Prazosin 1 mg by mouth at bedtime for PTSD related nightmares Seroquel 150 mg by mouth at bedtime for mood stabilization Abilify Maintena 400 mg IM was last administered on 09/22/2022. -When necessary Thorazine and Ativan for agitation/aggression. -NRT - nicotine patch -SW on board for discharge planning. Encouraged the patient to participate in milieu.
[2022-10-03] MEDS: FLUTICASONE 50MCG/SPRAY NASAL 16GM EA NOSTRIL SCH (20:06)
[2022-10-03] MEDS: PRAZOSIN 1 MG CAP PO SCH (20:06)
[2022-10-03] MEDS: QUEtiapine 100 MG TAB PO SCH (20:06)
[2022-10-03] MEDS: chlorproMAZINE 25 MG TAB PO SCH (20:06)
[2022-10-03] MEDS: MELATONIN 5 MG TABLET PO SCH (20:06)
[2022-10-03] MEDS: BENZOCAINE 20 % GEL 11.9 GM TUBE MM PRN (23:35)
[2022-10-04] MEDS: ACETAMINOPHEN TAB 325 MG TAB PO PRN ×2 (04:37→08:31)
[2022-10-04 05:39] VITALS: TEMP 97.9
[2022-10-04] MEDS: MULTIVITAMINS, THERA 1 EACH TAB PO SCH (08:31)
[2022-10-04] MEDS: FLUoxetine HCL 10 MG CAP PO SCH (08:31)
[2022-10-04] MEDS: BENZOCAINE 20 % GEL 11.9 GM TUBE MM PRN (08:31)
[2022-10-04] MEDS: ASCORBIC ACID 500 MG TAB PO SCH (08:31)
[2022-10-04] MEDS: NICOTINE 7MG/24HR PATCH TRANSDERM SCH (08:31)
[2022-10-04] MEDS: FLUTICASONE 110 MCG INHALER (MHU) INHALATION SCH ×2 (08:47→20:37)
--- NOTE | 2022-10-04 11:27 | P.PN ---
Progress Note - Text Progress Note Date: 10/04/22 Interval History: Patient was seen wandering the hallways and was agreeable to speak with the procedure writer in the office. Initially patient is calm, cooperative, and reports no suicidal or homicidal ideation. She reports no auditory or visual hallucinations. She reports no paranoia or other delusions. She is adherent with her medications and reports no side effects. She states she has been sober for the past 3 months. The patient was informed that she would not be discharged t [facility] as she has been denied placement at the [facility] in community health and we do not have a current appropriate placement for her. The patient becomes very upset and irate upon hearing this news. She begins screaming and clapping and walks to her room. Mental Status Exam: General Appearance: Patient appears to be stated age is alert, directable, and cooperative. Behavior: Patient is calmly seated without any agitated behavior however upon hearing about her discharge being held, she becomes irritable and angry. Speech: Patient's speech is fluent and nonpressured. Mood/Affect: Mood is "I'M SICK OF BEING IN HERE!" Affect is congruent and agitated. Suicidality/Homicidality: Patient denies having any suicidal or homicidal ideation intent or plan. Perceptions: Patient denies any visual hallucinations and denies any auditory hallucinations Though content/process: There is no evidence of any delusional thought content and thought process is linear and goal-directed. Memory and concentration: AOX3, grossly intact for the purposes of this session Judgment and insight: Fair Vital Signs Temp 97.9 F 10/04/22 05:37 Pulse 75 10/04/22 05:37 Resp 18 10/04/22 05:37 BP 108/67 10/04/22 05:37 Pulse Ox 100 10/04/22 05:37 FiO2 Assessment Schizoaffective disorder, bipolar type Borderline personality disorder Cannabis use disorder Methamphetamine use disorder, by history Cocaine use disorder, by history Tobacco use disorder, by history Plan: -Patient continues to meet criteria for inpatient psychiatric admission for symptom stabilization and safety. Patient has signed adult voluntary form and medication consent and was placed in patient's chart. -Awaiting meeting with [facility], Guardian, to discuss appropriate discharge plan. -Medications: Thorazine 50 mg by mouth at bedtime for agitation Prozac 30 mg daily for depression/anxiety/PTSD Prazosin 1 mg by mouth at bedtime for PTSD related nightmares Seroquel 150 mg by mouth at bedtime for mood stabilization Abilify Maintena 400 mg IM was last administered on 09/22/2022. -When necessary Thorazine and Ativan for agitation/aggression. -NRT - nicotine patch -SW on board for discharge planning. Encouraged the patient to participate in milieu.
[2022-10-04] MEDS: QUEtiapine 100 MG TAB PO SCH (20:37)
[2022-10-04] MEDS: chlorproMAZINE 25 MG TAB PO SCH (20:37)
[2022-10-04] MEDS: FLUTICASONE 50MCG/SPRAY NASAL 16GM EA NOSTRIL SCH (20:37)
[2022-10-04] MEDS: PRAZOSIN 1 MG CAP PO SCH (20:37)
[2022-10-04] MEDS: MELATONIN 5 MG TABLET PO SCH (20:37)
[2022-10-05] MEDS: ACETAMINOPHEN TAB 325 MG TAB PO PRN (06:59)
[2022-10-05] MEDS: BENZOCAINE 20 % GEL 11.9 GM TUBE MM PRN (06:59)
[2022-10-05] MEDS: MULTIVITAMINS, THERA 1 EACH TAB PO SCH (07:51)
[2022-10-05] MEDS: ASCORBIC ACID 500 MG TAB PO SCH (07:51)
[2022-10-05] MEDS: FLUoxetine HCL 10 MG CAP PO SCH (07:51)
[2022-10-05] MEDS: NICOTINE 7MG/24HR PATCH TRANSDERM SCH (07:51)
[2022-10-05] MEDS: FLUTICASONE 110 MCG INHALER (MHU) INHALATION SCH (07:52)
[2022-10-05 09:04] VITALS: BP 118/75; PULSE 88; RESP 20
--- NOTE | 2022-10-05 13:43 | P.DS ---
Providers Date of admission: 09/26/22 14:09 Expected date of discharge: 10/05/22 Attending physician: Avtar No MD Consults: 09/26/22 14:12 Consult Physician Routine Consulting Provider: [facility] Consult Reason/Comments: H&P and medical Do you want consulting provider notified?: Yes Primary care physician: Stated None - Discharge Diagnosis(es) (1) Schizoaffective disorder, bipolar type Status: Acute Priority: High (2) Cluster B personality disorder Status: Acute Priority: High (3) Cannabis use disorder Status: Chronic Priority: Medium (4) Polysubstance abuse Status: Suspected Priority: Low Hospital Course: Admission HPI: Patient is a single, unemployed, 27-year-old female who presented to the hospital by police after an order for noncompliance was completed by her ACT team. Patient presented to the hospital on 09/26/2022, brought into the hospital by police on a pickup order for noncompliance with treatment. The [facility] was [facility] from [facility] on [facility]/2022 was picked up by ACT staff members. She was brought to [facility] for an assessment prior to going to [facility]. However, as staff attempted to screen the patient, she became very upset and refuse to go to the skilled nursing. The patient left [facility] and ACT team was unable to locate her. The patient was found by police and brought to the emergency department. When assessed in the emergency department, the patient reported that she was being illegally brought to the hospital and being illegally admitted on to the psychiatric unit. She reported "the paperwork is illegal. All of it." The patient was also noted to urinate on the floor of the emergency department. She was subsequently admitted onto our psychiatric unit. The patient is currently under court order for mental health treatment until 12/25/2022. The patient last received Abilify maintena 400 mg IM on 09/22/2022. The patient has been primarily isolative to herself in her room. She has refused to provide any urine sample. Upon assessment by this provider, the patient is denying any suicidal or homicidal ideation, intention, and/or plan. She is denying any auditory or visual hallucinations. She is not reporting any paranoia or other delusions. She expresses that she is only here so that she may be discharged to a skilled nursing. She has been adherent with her medications and is not endorsing any significant side effects. When inquiring about any substance abuse, the patient denies any use of any tobacco, methamphetamines, alcohol, or illicit drugs. Patient states that the patient has a significant history of schizoaffective disorder, cocaine use disorder, and borderline personality disorder. The patient has been on numerous medications and is currently on a regimen of Seroquel, Abilify maintena, trazodone, and Prozac. She was last hospitalized in our psychiatric unit in May 2022. She is open with the ACT team with [facility]. She denies any prior attempts at suicide. Hospital course: Upon admission to the unit patient was initially presenting as somewhat irritable and mostly uncooperative and isolative to herself in her room. Patient was however directable and agreeable to commence treatment. Patient got along well with other patients on the unit and followed unit protocol. Patient was compliant with the medications and denied any side effects throughout hospital course. Patient was started on her home medications of Prozac, prazosin, Seroquel, and was continued on her Abilify maintena 400 mg IM which she last received on 09/22/2022. Over the course of the hospitalization, the patient remained calm and cooperative with the treatment team. She did have an intermittent episode of agitation was started on Thorazine at bedtime in order to address this. Her Seroquel was also titrated to 200 mg at bedtime. There was concern about the patient's living arrangements as should the patient has a significant history of eloping from different group homes and at times eloping from the [place]. When the patient was informed that discharge would be withheld until a more thorough plan was to be developed, the patient became very irritable and agitated however was able to de-escalate on her own in her room. On the day of discharge, the patient is not reporting any suicidal or homicidal ideation intention, and/or plan. She is not reporting any auditory or visual hallucinations. She is denying any paranoia or other delusions. She reports no significant signs or symptoms of riana or hypomania. She has been calm and directable. She denies any access to firearms or other weapons. The patient has been adherent with her medication and is not endorsing any significant side effects. The patient was counseled at length and the importance of medication adherence and appropriate outpatient follow-up. The patient does have a significant history of polysubstance abuse however maintains that she has been sober for the past 3 months. Her urinary drug screen was only positive for marijuana. The patient acknowledges the need to abstain from controlled substances as they may negatively contribute to her mental health. As the patient no longer met criteria for continued inpatient psychiatric hospitalization she was subsequently discharged. The patient was counseled that if she should not follow her treatment recommendations, there is a high likelihood of her being placed in a locked [facility] home in the future. Mental status exam: General Appearance: Patient appears to be stated age is alert, pleasant, and cooperative. Patient is in no acute distress and has fair hygiene and grooming Behavior: Patient is calmly seated without any agitated behavior. Speech: Patient's speech is fluent and nonpressured. Mood/Affect: Patient reports their mood is "doing great", affect is congruent and euthymic. Suicidality/Homicidality: Patient denies having any suicidal or homicidal ideation intent or plan. Perceptions: Patient denies any auditory or visual hallucinations. Though content/process: There is no evidence of any delusional thought content and thought process is linear and goal-directed. Future oriented Memory and concentration: AOX3, grossly intact for the purposes of this session. Can spell "WORLD" backwards correctly. Judgment and insight: Improved with guarded prognosis Impression: Schizoaffective disorder, bipolar type Cluster B personality disorder Cannabis use disorder Methamphetamine use disorder, by history Cocaine use disorder, by history Tobacco use disorder, by history Plan: -Continue with discharge today as patient has improved and stabilized psychiatrically and is not currently an imminent threat to herself and/or others. Patient will remain at chronically elevated risk for harm to self and/or others due to the severity of her mental illness, her impulsivity, and her history of polysubstance abuse. -Continue medications: Thorazine 50 mg by mouth at bedtime for agitation Prozac 30 mg daily for depression/anxiety/PTSD Prazosin 1 mg by mouth at bedtime for PTSD related nightmares Seroquel 150 mg by mouth at bedtime for mood stabilization Abilify Maintena 400 mg IM was last administered on 09/22/2022. Next dose due on 10/20/2022. -Patient was counseled on the need for medication compliance and appropriate follow-up at mental health and also primary care for medical issues. Patient verbalized understanding and agreed. -Social work to arrange for and conduct family meeting to ensure safety upon discharge and answer any questions/concerns. Social work also to arrange for patients follow up appointments with [facility] for psychiatric care along with follow up with primary care provider. -Patient counseled on abstaining from recreational drugs and marijuana and alcohol. Was informed/educated on the adverse effects on their physical and mental health. Patient verbally agreed and understood. Patient was offered substance abuse treatment however declined at this time. -Patient was instructed to return to the hospital or seek immediate medical care if their psychiatric or medical symptoms do worsen or reoccur. -Psychoeducation and supportive therapy provided to patient. Risks and benefits of pharmacological treatment versus the risks and benefits of nontreatment weight and discussed. Informed consent discussion held. Common side effects of psychotropics discussed such as, but not limited to headache, GI disturbance, sexual dysfunction, movement disorders, sedation, and orthostatic hypotension. Life threatening and blackbox warnings of prescribed medications also discussed. Potential risks of operating a vehicle or heavy machinery discussed with patient at length. Advised on importance of compliance and a reliable and responsible manner. Patient advised to review FDA consumer labeling of all medications prior to taking. Patient verbalized understanding of potential risks, and agrees with current treatment plan. Patient advised to medically contact physician/emergency personnel if any acute changes in condition occur. Vital Signs Temp 97.9 F 10/05/22 09:03 Pulse 88 10/05/22 09:03 Resp 20 10/05/22 09:03 BP 118/75 10/05/22 09:03 Pulse Ox 100 10/04/22 05:37 FiO2 Laboratory Results Urine Color Yellow 09/28/22 11:38 Urine Appearance Cloudy (Clear) H 09/28/22 11:38 Urine pH 6.5 (5.0-8.0) 09/28/22 11:38 Ur Specific Willis 1.023 (1.001-1.035) 09/28/22 11:38 Urine Protein Trace (Negative) H 09/28/22 11:38 Urine Glucose (UA) Negative (Negative) 09/28/22 11:38 Urine Ketones Negative (Negative) 09/28/22 11:38 Urine Blood Negative (Negative) 09/28/22 11:38 Urine Nitrite Negative (Negative) 09/28/22 11:38 Urine Bilirubin Negative (Negative) 09/28/22 11:38 Urine Urobilinogen <2.0 mg/dL (<2.0) 09/28/22 11:38 Ur Leukocyte Esterase Trace (Negative) H 09/28/22 11:38 Urine RBC 3 /hpf (0-5) 09/28/22 11:38 Urine WBC 4 /hpf (0-5) 09/28/22 11:38 Ur Squamous Epith Cells 29 /hpf (0-4) H 09/28/22 11:38 Urine Bacteria Rare /hpf (None) H 09/28/22 11:38 Urine Mucus Few /hpf (None) H 09/28/22 11:38 Urine HCG, Qual Not Detected (Not Detectd) 09/28/22 11:38 Urine Opiates Screen Negative (Negative) 09/28/22 11:38 Urine Methadone Screen Negative (Negative) 09/28/22 11:38 Ur Propoxyphene Screen Negative (Negative) 09/28/22 11:38 Urine Barbiturates Negative (Negative) 09/28/22 11:38 Ur Phencyclidine Scrn Negative (Negative) 09/28/22 11:38 Ur Amphetamine Screen Negative (Negative) 09/28/22 11:38 U Benzodiazepines Scrn Negative (Negative) 09/28/22 11:38 Urine Cocaine Screen Negative (Negative) 09/28/22 11:38 U Cannabinoids Screen Positive (Negative) A 09/28/22 11:38 Urine Alcohol Negative (Negative) 09/28/22 11:38 Coronavirus (PCR) Not Detected (Not Detectd) 09/26/22 12:48 Allergies Allergy/AdvReac Type Severity Reaction Status Date / Time Penicillins Allergy Severe Anaphylaxis Verified 09/26/22 17:54 Sulfa (Sulfonamide Allergy Severe Anaphylaxis Verified 09/26/22 17:54 Antibiotics) diphenhydramine HCl Allergy Nausea Verified 09/26/22 17:54 [From Benadryl] lithium Allergy Unknown Verified 09/26/22 17:54 Patient Condition at Discharge: Stable Plan - Discharge Summary Discharge Rx Participant: No New Discharge Prescriptions: New Melatonin 10 mg PO HS 30 Days #60 tab QUEtiapine [SEROquel] 200 mg PO HS 30 Days #60 tab chlorproMAZINE HCL [Thorazine] 50 mg PO HS 15 Days #15 tablet Continue Fluticasone Propionate [Fluticasone Propionate Hfa 110 MCG (Inhaler)] 2 puff INHALATION RT-BID Fluticasone Nasal [place] [Flonase Nasal [place]] 2 spr EA NOSTRIL HS Cetirizine HCl [Zyrtec] 10 mg PO DAILY PRN PRN Reason: Allergy Symptoms Albuterol Inhaler [Ventolin Hfa Inhaler] 2 puff INHALATION RT-Q6H PRN PRN Reason: Shortness Of Breath Prazosin [Minipress] 1 mg PO HS 15 Days cap FLUoxetine HCL [PROzac] 30 mg PO DAILY 15 Days cap ARIPiprazole IM [Abilify Maintena] 400 mg IM QMONTHLY #1 each Discontinued ARIPiprazole [Abilify] 20 mg PO DAILY 15 Days tab traZODone HCL [Desyrel] 100 mg PO HS PRN 15 Days tab PRN Reason: Insomnia QUEtiapine [SEROquel] 50 mg PO HS Melatonin 10 mg PO HS 30 Days tab QUEtiapine [SEROquel] 100 mg PO HS Discharge Medication List Albuterol Inhaler [Ventolin Hfa Inhaler] 2 puff INHALATION RT-Q6H PRN 01/31/22 [History] Cetirizine HCl [Zyrtec] 10 mg PO DAILY PRN 01/31/22 [History] Fluticasone Nasal [place] [Flonase Nasal [place]] 2 spr EA NOSTRIL HS 01/31/22 [History] Fluticasone Propionate [Fluticasone Propionate Hfa 110 MCG (Inhaler)] 2 puff INHALATION RT-BID 01/31/22 [History] FLUoxetine HCL [PROzac] 30 mg PO DAILY 15 Days cap 06/21/22 [Rx] Prazosin [Minipress] 1 mg PO HS 15 Days cap 06/21/22 [Rx] ARIPiprazole IM [Abilify Maintena] 400 mg IM QMONTHLY #1 each 10/05/22 [Rx] Melatonin 10 mg PO HS 30 Days #60 tab 10/05/22 [Rx] QUEtiapine [SEROquel] 200 mg PO HS 30 Days #60 tab 10/05/22 [Rx] chlorproMAZINE HCL [Thorazine] 50 mg PO HS 15 Days #15 tablet 10/05/22 [Rx] Follow up Appointment(s)/Referral(s): [facility] [Outside] - 10/11/22 10:30 am (10/11/2022 10:30AM - 11:00AM GENOVEVA NORIEGA ) [facility] [NON-STAFF] - 1 Week Patient Instructions/Handouts: Schizophrenia (DC), Schizoaffective Disorder (DC) Activity/Diet/Wound Care/Special Instructions: Avoid the use of street drugs and alcohol. Take all medications as prescribed. When you are in need of refills on your medications, please contact your medical provider and/or outpatient psychiatrist to have this done. Please go to scheduled outpatient appointments for aftercare treatment. If symptoms return or become worse, call the crisis line at and/or go to the nearest emergency room for evaluation. Discharge Disposition: HOME SELF-CARE
== END 2022-10-05 11:36 | disposition home or self-care (01) | DRG 750 ==
LOC: EC 09:31 → 3MHU 14:09
PROVIDERS: ADMIT Psychiatry & Neurology Psychiatry; ATTEND Psychiatry & Neurology Psychiatry
DX: F25.0 Schizoaffective disorder, bipolar type (principal); F15.10 Other stimulant abuse, uncomplicated; F14.10 Cocaine abuse, uncomplicated; F17.210 Nicotine dependence, cigarettes, uncomplicated; F60.89 Other specific personality disorders; Z20.822 Contact with and (suspected) exposure to COVID-19; Z87.820 Personal history of traumatic brain injury; Z88.2 Allergy status to sulfonamides; Z88.0 Allergy status to penicillin; Z88.8 Allergy status to other drugs, medicaments and biological substances; Z79.899 Other long term (current) drug therapy; Z65.8 Other specified problems related to psychosocial circumstances; Z91.199 Patient's noncompliance with other medical treatment and regimen due to unspecified reason; Z81.8 Family history of other mental and behavioral disorders; Z28.311 Partially vaccinated for COVID-19
CPT/HCPCS: 80306; 81001; 81025; 82075; 87635; 99285

== ENCOUNTER 2022-12-19 10:01 | Emergency (ER) | payer OTHER ==
[2022-12-19] MEDS ORDERED: SODIUM CHLORIDE 0.9% 1,000 ML IV ONE (10:28)
[2022-12-19 10:53] LABS: Basophils % (A) 0 %; Eosinophils % (A) 0 %; HCT 39.6 % (34.0-46.0); HGB 13.3 gm/dL (11.4-16.0); Lymphocytes % (A) 24 %; MCH 29.7 pg (25.0-35.0); MCHC 33.6 g/dL (31.0-37.0); MCV 88.4 fL (80.0-100.0); Mean Platelet Volume 9.5; Monocytes # (A) 0.3 k/uL (0-1.0); Monocytes % (A) 4 %; Neutrophils # (A) 5.8 k/uL (1.3-7.7); Neutrophils % (A) 70 %; Platelet Count 211 k/uL (150-450); RBC 4.48 m/uL (3.80-5.40); RDW 13.3 % (11.5-15.5); WBC 8.3 k/uL (3.8-10.6)
[2022-12-19 10:56] LABS: Appearance,Urine Clear (Clear); Bilirubin,Urine Negative (Negative); Blood,Urine Negative (Negative); Color,Urine Yellow; Glucose,Urine (UA) Negative (Negative); Ketones,Urine Negative (Negative); Leukocyte Esterase,Urine Negative (Negative); Nitrite,Urine Negative (Negative); PH, Urine 7.5 (5.0-8.0); Protein,Urine Trace (Negative); Specific Gravity,Urine 1.023 (1.001-1.035); Urobilinogen,Urine <2.0 mg/dL (<2.0)
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
[2022-12-19 11:09] LABS: INR 0.9 (<1.2); Partial Thromboplastin Time 24.8 sec (22.0-30.0); Prothrombin Time 10.1 sec (9.0-12.0)
[2022-12-19 11:10] LABS: ALT 27 U/L (4-34); AST 33 U/L (14-36); African American GFR (CKD) >90 (>60 ml/min/1.73 sqM); Albumin 4.3 g/dL (3.5-5.0); Alkaline Phosphatase 55 U/L (38-126); Anion Gap 6 mmol/L; Blood Urea Nitrogen 10 mg/dL (7-17); Carbon Dioxide 27 mmol/L (22-30); Chloride 105 mmol/L (98-107); Glucose 99 mg/dL (74-99); Magnesium 2.1 mg/dL (1.6-2.3); Non-African American GFR(CKD) >90 (>60 ml/min/1.73 sqM); Sodium 138 mmol/L (137-145); Total Bilirubin 0.5 mg/dL (0.2-1.3); Total Protein 7.3 g/dL (6.3-8.2)
[2022-12-19 11:17] LABS: Potassium 4.6 mmol/L (3.5-5.1)
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
[2022-12-19] MEDS ORDERED: KETOROLAC 15 MG/ML 1 ML VIAL IVP STA (11:43)
--- NOTE | 2022-12-19 12:31 | CT ---
EXAMINATION TYPE: CT chest angio for PE DATE OF EXAM: 12/19/2022 COMPARISON: None HISTORY: Chest pain, elevated d-dimer. CT DLP: 306 mGycm CONTRAST: CT chest with contrast and 3D reconstruction with MIP imaging is performed with IV Contrast, patient injected with 73ml mL of Isovue 370. Contrast-enhanced CT of the chest was performed through the course of the pulmonary arteries with rachel g and mediastinal window settings submitted. 3D reconstruction with MIP imaging was also performed. PULMONARY ARTERIES: The pulmonary arteries and their major tributaries are patent. I do not see magalis dence for sizable filling defect to suggest pulmonary embolic process. LUNGS: The lungs are clear and free of infiltrate. No evidence for atelectasis. No pulmonary nodule or mass is detected. No pleural effusion. MEDIASTINUM: Thoracic aorta is of normal caliber,however, evaluation is limited given timing of the contrast bolus. If there is concern for thoracic aortic pathology consider JOANIE. Correlate clinicall y . The heart is not enlarged. No evidence for mediastinal mass. No mediastinal lymph nodes greater than 1cm. HILAR STRUCTURES: No evidence for mass. No hilar lymph nodes greater than 1 cm. UPPER ABDOMEN: No significant abnormality is seen. IMPRESSION: 1. No evidence for Pulmonary embolism at this time.
[2022-12-19 13:28] VITALS: BP 110/74; PULSE 86; RESP 16; TEMP 98.1
== END 2022-12-19 13:40 | disposition home or self-care (01) ==
LOC: EC 10:01
DX: R51.9 Headache, unspecified (principal); J45.909 Unspecified asthma, uncomplicated; K21.9 Gastro-esophageal reflux disease without esophagitis; F41.9 Anxiety disorder, unspecified; F31.9 Bipolar disorder, unspecified; F17.200 Nicotine dependence, unspecified, uncomplicated; F12.90 Cannabis use, unspecified, uncomplicated; Z88.0 Allergy status to penicillin; Z88.2 Allergy status to sulfonamides; Z88.8 Allergy status to other drugs, medicaments and biological substances; Z79.51 Long term (current) use of inhaled steroids; Z79.899 Other long term (current) drug therapy; Y04.8XXA Assault by other bodily force, initial encounter
CPT/HCPCS: 36415; 93005; 85379; 80053; 83735; 84484; 85025; 85610; 85730; 81003; 81025; 71046; 72125; 70450; 71275; 99285; 96374; 96361; J1885; Q9967

== ENCOUNTER 2022-12-22 02:59 | Emergency (ER) | payer OTHER ==
[2022-12-22 03:11] VITALS: RESP 18
[2022-12-22 03:39] LABS: Basophils % (A) 0 %; Eosinophils # (A) 0.1 k/uL (0-0.7); Eosinophils % (A) 1 %; HCT 37.7 % (34.0-46.0); Lymphocytes # (A) 2.2 k/uL (1.0-4.8); Lymphocytes % (A) 25 %; MCH 30.2 pg (25.0-35.0); MCHC 34.4 g/dL (31.0-37.0); MCV 87.7 fL (80.0-100.0); Mean Platelet Volume 8.9; Monocytes # (A) 0.5 k/uL (0-1.0); Monocytes % (A) 6 %; Neutrophils # (A) 5.9 k/uL (1.3-7.7); Neutrophils % (A) 67 %; Platelet Count 224 k/uL (150-450); RDW 12.9 % (11.5-15.5); WBC 8.9 k/uL (3.8-10.6)
--- NOTE | 2022-12-22 03:45 | ED ---
General Adult HPI - General Chief complaint: Dizziness Stated complaint: Chest Pain, Recreational Drug Use Time Seen by Provider: 12/22/22 03:04 Source: patient Mode of arrival: EMS Limitations: no limitations - History of Present Illness Initial comments: This patient is 27-year-old woman with complaint of feeling dizzy and lightheaded. The patient does admit that she had used some and methamphetamine prior to onset of symptoms. She was not having fever or chills, head or neck pain, chest abdomen or back pain. She is feeling somewhat better since arrival in the emergency department -: hour(s) Severity scale (1-10): 0 Consistency: now resolved Improves with: none Worsens with: none Associated Symptoms: other Treatments Prior to Arrival: none - Related Data Home Medications Medication Instructions Recorded Confirmed Albuterol Inhaler [Ventolin Hfa 2 puff INHALATION RT-Q6H PRN 01/31/22 09/26/22 Inhaler] Cetirizine HCl [Zyrtec] 10 mg PO DAILY PRN 01/31/22 09/26/22 Fluticasone Nasal [place] [Flonase 2 spr EA NOSTRIL HS 01/31/22 09/26/22 Nasal [place]] Fluticasone Propionate 2 puff INHALATION RT-BID 01/31/22 09/26/22 [Fluticasone Propionate Hfa 110 MCG (Inhaler)] Previous Rx's Medication Instructions Recorded ARIPiprazole IM [Abilify Maintena] 400 mg IM QMONTHLY #1 each 10/05/22 Melatonin 10 mg PO HS 30 Days #60 tab 10/05/22 QUEtiapine [SEROquel] 200 mg PO HS 30 Days #60 tab 10/05/22 chlorproMAZINE HCL [Thorazine] 50 mg PO HS 15 Days #15 tablet 10/05/22 FLUoxetine HCL [PROzac] 30 mg PO DAILY 30 Days #90 cap 10/06/22 Prazosin [Minipress] 1 mg PO HS 30 Days #30 cap 10/06/22 Allergies Allergy/AdvReac Type Severity Reaction Status Date / Time Penicillins Allergy Severe Anaphylaxis Verified 12/19/22 10:08 Sulfa (Sulfonamide Allergy Severe Anaphylaxis Verified 12/19/22 10:08 Antibiotics) diphenhydramine HCl Allergy Nausea Verified 12/19/22 10:08 [From Benadryl] lithium Allergy Unknown Verified 12/19/22 10:08 Review of Systems ROS Statement: Those systems with pertinent positive or pertinent negative responses have been documented in the HPI. ROS Other: All systems not noted in ROS Statement are negative. Constitutional: Denies: fever, chills, weakness Eyes: Denies: vision change Respiratory: Denies: cough, dyspnea Cardiovascular: Denies: chest pain, palpitations, edema, syncope Gastrointestinal: Denies: abdominal pain, vomiting, diarrhea Genitourinary: Denies: dysuria, hematuria Musculoskeletal: Denies: back pain Skin: Denies: rash Neurological: Denies: headache, weakness, numbness, paresthesias, vertigo Past Medical History Past Medical History: Asthma, GERD/Reflux, Liver Disease, Pneumonia, Skin Disorder Additional Past Medical History / Comment(s): hx kidney stones, hypotension, migraines, 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 Past Psychological History: Anxiety, Bipolar, Depression, Panic Disorder, PTSD, Schizoaffective Disorder Smoking Status: Current every day smoker Past Alcohol Use History: None Reported Past Drug Use History: Marijuana, Methamphetamine - Past Family History Mother Family Medical History: No Reported History Father Family Medical History: No Reported History Additional Family Medical History / Comment(s): bipolar, sever seasonal allergies Brother(s) Family Medical History: No Reported History Sister(s) Family Medical History: COPD General Exam General appearance: alert, in no apparent distress Head exam: Present: atraumatic, normocephalic Eye exam: Present: normal appearance, PERRL, EOMI. Absent: scleral icterus, conjunctival injection ENT exam: Present: mucous membranes dry Neck exam: Present: normal inspection Respiratory exam: Present: normal lung sounds bilaterally. Absent: respiratory distress, wheezes, rales, rhonchi, stridor Cardiovascular Exam: Present: regular rate, normal rhythm. Absent: irregular rhythm GI/Abdominal exam: Present: soft. Absent: distended, tenderness, guarding, rebound Extremities exam: Present: normal inspection, normal capillary refill. Absent: pedal edema, calf tenderness Back exam: Present: normal inspection. Absent: CVA tenderness (R), CVA tend erness (L) Neurological exam: Present: alert, oriented X3, CN II-XII intact. Absent: motor sensory deficit Psychiatric exam: Present: flat affect. Absent: depressed, homicidal ideation, suicidal ideation Skin exam: Present: warm, dry, intact, normal color. Absent: rash Course Vital Signs 12/22/22 12/22/22 12/22/22 03:02 06:00 06:49 Temperature 98.3 F 98.6 F 98.6 F Pulse Rate 100 78 78 Respiratory 18 18 18 Rate Blood Pressure 106/70 90/55 94/62 O2 Sat by Pulse 96 97 97 Oximetry EKG Findings - EKG Results: EKG: interpreted by TRANG MONTES, sinus rhythm (Rate 90 bpm), normal axis, normal QRS, normal ST/T - [place], Pacemaker, Normal: Normal tracing: normal tracing Medical Decision Making - Medical Decision Making Was pt. sent in by a medical professional or institution (, PA, FOREST FIRE PREVENTION SPECIALIST, urgent care, hospital, or senior care...) When possible be specific @ -[No] Did you speak to anyone other than the patient for history (EMS, parent, family, police, friend...)? What history was obtained from this source @ -[No] Did you review nursing and triage notes (agree or disagree)? Why? @ -[I reviewed and agree with nursing and triage notes] Were old charts reviewed (outside hosp., previous admission, EMS record, old EKG, old radiological studies, urgent care reports/EKG's, senior care records)? Report findings @ -[No old charts were reviewed] Differential Diagnosis (chest pain, altered mental status, abdominal pain women, abdominal pain men, vaginal bleeding, weakness, fever, dyspnea, syncope, headache, dizziness, GI bleed, back pain, seizure, CVA, palpatations, mental health, musculoskeletal)? @ -[Differential Altered Mental Status: Hypoglycemia, DKA, hypercapnia, ETOH, overdose, CO poisoning, trauma, myxedema coma, HTN encephalopathy, infection, encephalitis, psychosis, intercranial hemo rrhage, hepatic encephalopathy, meningitis, CVA, this is not meant to be an all- inclusive list EKG interpreted by me (3pts min.). @ -[As above] X-rays interpreted by me (1pt min.). @ -[None done] CT interpreted by me (1pt min.). @ -[None done] U/S interpreted by me (1pt. min.). @ -[None done] What testing was considered but not performed or refused? (CT, X-rays, U/S, labs)? Why? @ -[None] What meds were considered but not given or refused? Why? @ -[None] Did you discuss the management of the patient with other professionals (professionals i.e. DrSean, PA, FOREST FIRE PREVENTION SPECIALIST, lab, RT, psych nurse, mental health social worker, academy education director, teacher, strike warfare/missile systems officer, manager human capital)? Give summary @ -[No] Was smoking cessation discussed for >3mins.? @ -[No] Was critical care preformed (if so, how long)? @ -[No] Were there social determinants of health that impacted care today? How? (Homelessness, low income, unemployed, alcoholism, drug addiction, transportation, low edu. Level, literacy, decrease access to med. care, fdc, rehab)? @ -[No] Was there de-escalation of care discussed even if they declined (Discuss DNR or withdrawal of care, Hospice)? DNR status @ -[No] What co-morbidities impacted this encounter? (DM, HTN, Smoking, COPD, CAD, Cancer, CVA, ARF, Chemo, Hep., AIDS, mental health diagnosis, sleep apnea, morbid obesity)? @ -[None] Was patient admitted / discharged? Hospital course, mention meds given and route, prescriptions, significant lab abnormalities, going to OR and other pertinent info. @ -[Discharge Undiagnosed new problem with uncertain prognosis? @ -[No] Drug Therapy requiring intensive monitoring for toxicity (Heparin, Nitro, Insulin, Cardizem)? @ -[No] Were any procedures done? @ -[No] Diagnosis/symptom? @ -[Polysubstance abuse Acute, or Chronic, or Acute on Chronic? @ -[Chronic Uncomplicated (without systemic symptoms) or Complicated (systemic symptoms)? @ -[Complicated Side effects of treatment? @ -[No] Exacerbation, Progression, or Severe Exacerbation? @ -[No] Poses a threat to life or bodily function? How? (Chest pain, [place], [place], pneumonia, PE, COPD, DKA, ARF, appy, cholecystitis, CVA, Diverticulitis, Homicidal, Suicidal, threat to staff... and all critical care pts) @ -[No] - Lab Data Result diagrams: 12/22/22 03:28 12/22/22 03:28 Lab Results 12/22/22 12/22/22 12/22/22 Range/Units 03:28 03:28 03:28 WBC 8.9 (3.8-10.6) k/uL RBC 4.30 (3.80-5.40) m/uL Hgb 13.0 (11.4-16.0) gm/dL Hct 37.7 (34.0-46.0) % MCV 87.7 (80.0-100.0) fL MCH 30.2 (25.0-35.0) pg MCHC 34.4 (31.0-37.0) g/dL RDW 12.9 (11.5-15.5) % Plt Count 224 (150-450) k/uL MPV 8.9 Neutrophils % 67 % Lymphocytes % 25 % Monocytes % 6 % Eosinophils % 1 % Basophils % 0 % Neutrophils # 5.9 (1.3-7.7) k/uL Lymphocytes # 2.2 (1.0-4.8) k/uL Monocytes # 0.5 (0-1.0) k/uL Eosinophils # 0.1 (0-0.7) k/uL Basophils # 0.0 (0-0.2) k/uL Sodium 136 L (137-145) mmol/L Potassium 3.7 (3.5-5.1) mmol/L Chloride 104 (98-107) mmol/L Carbon Dioxide 23 (22-30) mmol/L Anion Gap 9 mmol/L BUN 14 (7-17) mg/dL Creatinine 0.78 (0.52-1.04) mg/dL Est GFR (CKD-EPI)AfAm >90 (>60 ml/min/1.73 sqM) Est GFR (CKD-EPI)NonAf >90 (>60 ml/min/1.73 sqM) Glucose 123 H (74-99) mg/dL Calcium 8.8 (8.4-10.2) mg/dL Total Bilirubin 0.2 (0.2-1.3) mg/dL AST 23 (14-36) U/L ALT 23 (4-34) U/L Alkaline Phosphatase 68 (38-126) U/L Troponin I <0.012 (0.000-0.034) ng/mL Total Protein 6.3 (6.3-8.2) g/dL Albumin 3.8 (3.5-5.0) g/dL Urine HCG, Qual (Not Detectd) Urine Opiates Screen (NotDetected) Ur Oxycodone Screen (NotDetected) Urine Methadone Screen (NotDetected) Ur Propoxyphene Screen (NotDetected) Ur Barbiturates Screen (NotDetected) U Tricyclic Antidepress (NotDetected) Ur Phencyclidine Scrn (NotDetected) Ur Amphetamines Screen (NotDetected) U Methamphetamines Scrn (NotDetected) U Benzodiazepines Scrn (NotDetected) Urine Cocaine Screen (NotDetected) U Marijuana (THC) Screen (NotDetected) 12/22/22 12/22/22 Range/Units 03:37 03:37 WBC (3.8-10.6) k/uL RBC (3.80-5.40) m/uL Hgb (11.4-16.0) gm/dL Hct (34.0-46.0) % MCV (80.0-100.0) fL MCH (25.0-35.0) pg MCHC (31.0-37.0) g/dL RDW (11.5-15.5) % Plt Count (150-450) k/uL MPV Neutrophils % % Lymphocytes % % Monocytes % % Eosinophils % % Basophils % % Neutrophils # (1.3-7.7) k/uL Lymphocytes # (1.0-4.8) k/uL Monocytes # (0-1.0) k/uL Eosinophils # (0-0.7) k/uL Basophils # (0-0.2) k/uL Sodium (137-145) mmol/L Potassium (3.5-5.1) mmol/L Chloride (98-107) mmol/L Carbon Dioxide (22-30) mmol/L Anion Gap mmol/L BUN (7-17) mg/dL Creatinine (0.52-1.04) mg/dL Est GFR (CKD-EPI)AfAm (>60 ml/min/1.73 sqM) Est GFR (CKD-EPI)NonAf (>60 ml/min/1.73 sqM) Glucose (74-99) mg/dL Calcium (8.4-10.2) mg/dL Total Bilirubin (0.2-1.3) mg/dL AST (14-36) U/L ALT (4-34) U/L Alkaline Phosphatase (38-126) U/L Troponin I (0.000-0.034) ng/mL Total Protein (6.3-8.2) g/dL Albumin (3.5-5.0) g/dL Urine HCG, Qual Not Detected (Not Detectd) Urine Opiates Screen Not Detected (NotDetected) Ur Oxycodone Screen Not Detected (NotDetected) Urine Methadone Screen Not Detected (NotDetected) Ur Propoxyphene Screen Not Detected (NotDetected) Ur Barbiturates Screen Not Detected (NotDetected) U Tricyclic Antidepress Not Detected (NotDetected) Ur Phencyclidine Scrn Not Detected (NotDetected) Ur Amphetamines Screen Detected H (NotDetected) U Methamphetamines Scrn Detected H (NotDetected) U Benzodiazepines Scrn Not Detected (NotDetected) Urine Cocaine Screen Not Detected (NotDetected) U Marijuana (THC) Screen Detected H (NotDetected) Disposition Clinical Impression: Mood disorder Disposition: HOME SELF-CARE Condition: Fair Instructions (If sedation given, give patient instructions): Mood Disorders (ED) Is patient prescribed a controlled substance at d/c from ED?: No Referrals: None,Stated [Primary Care Provider] - 1-2 days
[2022-12-22 03:50] LABS: ALT 23 U/L (4-34); AST 23 U/L (14-36); African American GFR (CKD) >90 (>60 ml/min/1.73 sqM); Albumin 3.8 g/dL (3.5-5.0); Alkaline Phosphatase 68 U/L (38-126); Anion Gap 9 mmol/L; Blood Urea Nitrogen 14 mg/dL (7-17); Calcium 8.8 mg/dL (8.4-10.2); Carbon Dioxide 23 mmol/L (22-30); Chloride 104 mmol/L (98-107); Glucose 123 mg/dL (74-99); Non-African American GFR(CKD) >90 (>60 ml/min/1.73 sqM); Potassium 3.7 mmol/L (3.5-5.1); Sodium 136 mmol/L (137-145); Total Bilirubin 0.2 mg/dL (0.2-1.3); Total Protein 6.3 g/dL (6.3-8.2)
[2022-12-22 04:22] LABS: Amphetamine Screen,Urine Detected (NotDetected); Barbiturate Screen,Urine Not Detected (NotDetected); Benzodiazepines Screen,Urine Not Detected (NotDetected); Cocaine Screen,Urine Not Detected (NotDetected); Methadone Screen, Urine Not Detected (NotDetected); Opiate Screen,Urine Not Detected (NotDetected); Oxycodone Screen, Urine Not Detected (NotDetected); Phencyclidine Screen,Urine Not Detected (NotDetected); Tricyclic Antidepressant,Urine Not Detected (NotDetected); Urn Cannabinoid Scrn Detected (NotDetected)
[2022-12-22 06:04] VITALS: PULSE 78; TEMP 98.6
[2022-12-22 06:50] VITALS: BP 94/62
== END 2022-12-22 06:54 | disposition home or self-care (01) ==
LOC: EC 02:59
DX: F39 Unspecified mood [affective] disorder (principal); J45.909 Unspecified asthma, uncomplicated; F41.9 Anxiety disorder, unspecified; F31.9 Bipolar disorder, unspecified; F17.200 Nicotine dependence, unspecified, uncomplicated; F12.90 Cannabis use, unspecified, uncomplicated; F15.10 Other stimulant abuse, uncomplicated; Z79.899 Other long term (current) drug therapy; Z79.51 Long term (current) use of inhaled steroids; Z88.0 Allergy status to penicillin; Z88.2 Allergy status to sulfonamides; Z88.1 Allergy status to other antibiotic agents; Z88.8 Allergy status to other drugs, medicaments and biological substances
CPT/HCPCS: 36415; 80053; 80306; 81025; 82075; 84484; 85025; 93005; 99285